=== PATIENT | male | born 1935 | race Caucasian/White ===

== ENCOUNTER → 2016-05-29 | Outpatient (CLI) | payer BC ==
[~2016-05-29] MED LIST: ACET-1256 PO; ASPCH81X PO; ATOR10TA88 PO; BACL10TA PO; CARV6.252 PO; CHOL100010 PO; CHOL100027 PO; CLR10 PO; COEN150C2 PO; COEN1CAP28 PO; COEN1CAP7 PO; CYCL0.052 OP; CZR25 PO; DIGO0.122 PO; FINA5TAB PO; FLNIN NAE; FLUT0.15 NAE; FURO20TA PO; GABA1CAP PO; GABA1CAP4 PO; GLUCTAB7 PO; ISOS120T5 PO; ISOS60TA25 PO; LNX125 PO; LOSA1TAB PO; LPT/40 PO; METH500T37 PO; MULT-190 PO; MULT-506 PO; NTRGSL/4 UT; PANT40TA PO; POLY3350 PO; POLY335040 PO; RSTOPS OPB; TEMA15CA4 PO; TEMA7.5C13 PO; TRAM-10 PO; WARF5TAB7 PO; WARF5TAB90 PO; [UNRECOGNIZED DRUG - OTHER] OPB
[2016-05-29 16:22] LABS: HEMATOCRIT 44.2 % (42-52); MEAN CELL VOLUME 93.6 fL (80-100); MEAN CORPUSCULAR HEMOGLOBIN 32.2 pg (25-34); MEAN CORPUSCULAR HGB CONC 34.4 g/dl (32-36); MEAN PLATELET VOLUME 10.2 fL (7.4-10.4); PLATELET COUNT 209 K/uL (130-400); RED BLOOD COUNT 4.72 M/uL (4.7-6.1); WHITE BLOOD COUNT 7.79 K/uL (4.8-10.8)
[2016-05-29 16:39] LABS: URINE APPEARANCE CLEAR (CLEAR); URINE BILIRUBIN NEG (NEG); URINE COLOR DK YELLOW; URINE EPITHELIAL CELL AUTO 0-5 /lpf (0-5); URINE NITRITE NEG (NEG); URINE SPECIFIC GRAVITY 1.022 (1.000-1.030); UROBILINOGEN POS (NEG)
[2016-05-29 16:44] LABS: MANUAL MICROSCOPIC REQUIRED? NO; REVIEW REQ? NO
[2016-05-29 16:54] LABS: BLOOD UREA NITROGEN 17 mg/dl (7-18); BUN/CREATININE RATIO 15.7 (10-20); CALCIUM 8.9 mg/dl (8.5-10.1); CARBON DIOXIDE 30 mmol/L (21-32); CHLORIDE 104 mmol/L (98-107); GLUCOSE 87 mg/dl (70-99); PHOSPHORUS 2.7 mg/dl (2.5-4.9); POTASSIUM 3.9 mmol/L (3.5-5.1); SODIUM 141 mmol/L (136-145)
[2016-05-29 16:59] LABS: URINE PROTIEN/CREAT RATIO 0.3 (0-0.2); URINE TOTAL PROTEIN 37.1 mg/dl (0-11.9)
== END | disposition home or self-care (01) ==
LOC: C.LAB 15:02
PROVIDERS: ATTEND Internal Medicine Nephrology
DX: I12.9 Hypertensive chronic kidney disease with stage 1 through stage 4 chronic kidney disease, or unspecified chronic kidney disease (principal); N25.81 Secondary hyperparathyroidism of renal origin; N18.2 Chronic kidney disease, stage 2 (mild); Z51.81 Encounter for therapeutic drug level monitoring; Z79.01 Long term (current) use of anticoagulants; I48.91 Unspecified atrial fibrillation

== ENCOUNTER → 2016-06-05 | Day surgery (SDC) | payer BC ==
[~2016-06-05] VITALS: Ht 170.2 cm; Wt 75.0 kg
[~2016-06-05] MED LIST changes: +BUPIVACAINE 0.25% 2.5MG/ML PF 10 ML VIAL INFIL ONE; +LIDOCAINE HCL 1% 20 ML VIAL ONE
[2016-06-05 13:15] VITALS: Ht 170.2 cm; Wt 75.0 kg
--- NOTE | 2016-06-05 13:45 | History & Physical Bridge - [place] ---
H&P Re-Evaluation Bridge Note: I have examined the patient, reviewed the History & Physical and in the interval since the performance of the History & Physical I have noted the following changes of clinical significance: No changes noted
[2016-06-05 14:30] VITALS: BP 145/87; PULSE 67; TEMP 36.6; O2SAT 98
--- NOTE | 2016-06-05 14:33 | Discharge Instructions ---
Discharge Instructions Visit Reason for Visit: Low Back Pain Discharge Discharge Diagnosis / Problem: low back pain Discharge Goals Goal(s): Decrease discomfort, Improve function Activity Recommendations Activity Limitations: resume your previous activity Anesthesia . Post Anesthesia Instructions: If you have had General Anesthesia or IV Sedation: * Do not drive today. * Resume driving when surgeon permits. * Do not make important decisions or sign legal documents today. * Call surgeon for: 1. Temperature elevations greater than 101 degrees F. 2. Uncontrollable pain. 3. Excessive bleeding. 4. Persistent nausea and vomiting. 5. Medication intolerance (nausea, vomiting or rash). * For nausea and vomiting use only clear liquids such as: tea, soda, bouillon until nausea subsides, then gradually increase diet as tolerated. * If you have any concerns or questions, call your surgeon's office. If physician is unavailable and it is an emergency, call 911 or go to the nearest emergency room. . Diet Recommendations Recommended Home Diet: resume previous diet Procedures Procedures Performed: LEFT L4-5RADIO FREQUENCY DENERVATION Pending Studies Studies pending at discharge: no Medical Emergencies . Who to Call and When: Medical Emergencies: If at any time you feel your situation is an emergency, please call 911 immediately. . Non-Emergent Contact Non-Emergency issues call your: Specialist . . "Provider Documentation" section prepared by Bruno Nunez.
--- NOTE | 2016-06-05 15:30 | OPERATIVE REPORT ---
DATE OF OPERATION: 06/05/2016 PREOPERATIVE DIAGNOSIS: Left L4-L5 facet arthropathy, chronic low back pain. POSTOPERATIVE DIAGNOSIS: Same. PROCEDURE: Left L4-5 facet radiofrequency denervation. SURGEON: Dr. Bruno Nunez. INDICATIONS: The patient is an 80-year-old white male who underwent a right L4-L5 radiofrequency denervation in the summer of 2015. He reports that he had done well up until a short time period ago when the pain started to return and become problematic to him. He presents today for a radiofrequency denervation procedure on the left L4-L5 areas which he had retained really good relief for about a year's time. PHYSICAL EXAMINATION: Pleasant male seated comfortably. He is point tender to palpation at the L4-L5 facet area. This is worse with extension, rotation, relieved with flexion. Normal motor and sensory examination of his lower extremities. Negative seated straight leg raises. CONSENT: Verbal and written consent was obtained from the patient. Risks and benefits were reviewed. Risks include but are not limited to epidural abscess, epidural hematoma, allergic reaction, dural puncture. The patient wishes to proceed. PROCEDURE: The patient was taken back in the special procedures room of the [facility] where he was maintained in a prone position. Backside was cleansed with Betadine x3 and a dry sterile dressing was applied. Fluoroscope was used to identify the L4 and L5 transverse process junctions on the left side. Overlying skin was anesthetized with 3 mL of lidocaine 1% with a 25 gauge 1.5-inch needle at each site. A 22 gauge 10 cm needle was then placed targeting the bony junctions. It was maneuvered and tested to evoke sensory stimulation of 0.2 volts at L4 and 0.4 volts at L5. Overlying nerve area was then anesthetized with an additional 1 mL of lidocaine 1%. Prior to this he had motor stimulation at both sites that provoked localized paraspinal spasms, but nothing down the leg. He then underwent denervation 80 degrees 100 seconds x2, first at the L4 site then at the L5 site. This was well tolerated. Following denervation he had bupivacaine 0.25% placed at each site 1 mL. DISPOSITION: 1. The patient is taken out into the discharge recovery area where he will be discharged home once discharge criteria have been met. 2. Follow up in the [facility] Sports Medicine office in 2-4 weeks. I attest to the content of the Intraoperative Record and any orders documented therein. Any exceptio ns are noted below.
== END | disposition home or self-care (01) ==
LOC: X.SURG 12:48
PROVIDERS: ATTEND Physical Medicine & Rehabilitation
DX: M47.816 Spondylosis without myelopathy or radiculopathy, lumbar region (principal); M54.5 Low back pain; Z79.01 Long term (current) use of anticoagulants

== ENCOUNTER 2016-09-03 15:48 | Observation (INO) | payer BC, OTHER ==
[~2016-09-03] VITALS: Ht 170.2 cm; Wt 76.8 kg
[~2016-09-03 15:48] MED LIST changes: +ATOR10TA82 PO; -ATOR10TA88 PO; -BACL10TA PO; -BUPIVACAINE 0.25% 2.5MG/ML PF 10 ML VIAL INFIL ONE; -CHOL100027 PO; -COEN150C2 PO; -COEN1CAP7 PO; -CYCL0.052 OP; -FLUT0.15 NAE; -GABA1CAP PO; -ISOS60TA25 PO; -LIDOCAINE HCL 1% 20 ML VIAL ONE; -LNX125 PO; -LOSA1TAB PO; -LPT/40 PO; -METH500T37 PO; -MULT-506 PO; -NTRGSL/4 UT; -POLY3350 PO; -TEMA7.5C13 PO; -WARF5TAB90 PO
[2016-09-03] MEDS ORDERED: ASPIRIN 81 MG CHEW PO STA (16:00)
[2016-09-03] MEDS ORDERED: NITROGLYCERIN 0.4 MG SL PER TAB CHARGE SL PRN ×2 (16:00→18:00)
[2016-09-03] MEDS ORDERED: METH500T37 PO (16:10)
--- NOTE | 2016-09-03 16:19 | EMERGENCY ROOM VISIT NOTE ---
History Report prepared by Dacia: Payton Dunlap Under the Supervision of: Dr. Curtis Waller D.O. First contact with patient: 15:54 Chief Complaint: CHEST PAIN Stated Complaint: CHEST DISCOMFORT/PAIN- CARDIAC HX History of Present Illness The patient is a 80 year old male who presents to the Emergency Room with complaints of intermittent chest pain starting couple days ago. He currently rates his discomfort as a 2/10 in severity. He describes the pain as a tightness which is present in the middle of his chest. He reports SOB, tingling in his left arm, nausea, and back pain. He denies any vomiting, abdominal pain, or swelling in his legs. He has aspirin and nitro at home which he has not taken. He has had a cardiac catheterization before. He has a pacemaker in place. 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 Source of History: patient Onset: couple days ago Position: chest (mid) Symptom Intensity: 2/10 Quality: other (tightness) Timing: intermittent Associated Symptoms: + SOB, + back pain, + nausea, No abdominal pain, No vomiting Note: Pt reports tingling in left arm. Pt denies swelling in his legs. Review of Systems See HPI for pertinent positives & negatives. A total of 10 systems reviewed and were otherwise negative. Past Medical & Surgical Medical Problems: (1) Abdominal pain (2) Benign hypertension (3) Chest pain (4) Colonoscopy (5) Coronary artery bypass grafts x 2 (6) Dyslipidemia (7) History of TIA (transient ischemic attack) (8) Hx of myocardial infarction (9) Hyperlipidemia (10) Hypertension (11) Pacemaker (12) Placement of stent Surgical Problems: (1) History of coronary artery bypass graft x 2 (2) Stented coronary artery Family History Heart disease Hypertension Social History Smoking Status: Former Smoker Alcohol Use: occasionally Drug Use: none Marital Status: Housing Status: lives with family Occupation Status: retired Current/Historical Medications Scheduled Aspirin (Aspirin Chewable), 162 MG PO QAM Atorvastatin (Lipitor), 10 MG PO QPM Carvedilol (Coreg), 6.25 MG PO BID Cholecalciferol (Vitamin D 1000 Unit), 1,000 INTER.UNIT PO DAILY Coenzyme Q10 (Ubidecarenone) (Coq10), 1-2 TAB PO DAILY Cyclosporine (Ophth) (Restasis), 1 DROP OP BID Digoxin (Digoxin), 0.125 MG PO DAILY Finasteride (Proscar), 5 MG PO DAILY Fluticasone Propionate (Nasal) (Flonase Allergy Relief), 2 SPRAYS ANA DAILY Furosemide (Lasix), 20 MG PO QAM Gabapentin (Gabapentin), 300 MG PO TID Gxhjvstcske-Otoab[place]hiuk-Xmg C- (Glucosamine Chondroitin), 1 TABLET PO BID Isosorbide Mononitrate Ext Rel (Imdur Ext Rel), 30 MG PO QAM Losartan Potassium (Cozaar), 1 TAB PO DAILY Nitroglycerin (Nitrostat), 0.4 MG UT PRN Ocuvite Preservision (Ocuvite Preservision), 1 TAB PO QAM Pantoprazole Sodium (Protonix), 40 MG PO QAM Polyethylene Glycol 3350 (Polyethylene Glycol 3350), 17 GM PO DAILY Temazepam (Temazepam), 7.5 MG PO HS Warfarin Sod (Jantoven), 5 MG PO 4XWK Warfarin Sodium (Coumadin), 2.5 MG PO -- Scheduled PRN Acetaminophen (Tylenol), 500 MG PO DAILY PRN for Pain Loratadine (Claritin), 10 MG PO QAM PRN for ALLERGIC REACTION Methocarbamol (Robaxin), 500 MG PO Q8 PRN for Muscle Spasms Tramadol (Ultram), 50 MG PO Q12 PRN for Pain Allergies Coded Allergies: Adhesives (Verified Allergy, Intermediate, 06/05/16) Niacin (Verified Adverse Reaction, Unknown, FLUSHING, 06/05/16) Oxycodone (Verified Adverse Reaction, Unknown, sick, GI, 06/05/16) Rosuvastatin (Verified Adverse Reaction, Unknown, CONSTIPATION, 06/05/16) Physical Exam Vital Signs Date Time Temp Pulse Resp B/P Pulse Ox O2 Delivery O2 Flow Rate FiO2 09/03/16 18:05 94 Room Air 09/03/16 17:34 70 16 133/74 94 Room Air 09/03/16 16:59 70 18 125/63 95 Room Air 09/03/16 16:20 71 20 102/60 93 Room Air 09/03/16 16:18 71 09/03/16 16:15 71 22 117/61 Room Air 09/03/16 16:05 93 Room Air 09/03/16 16:00 93 Room Air 09/03/16 15:51 36.3 74 20 131/70 88 Room Air Physical Exam GENERAL: Patient is awake, alert, and in no acute distress. Patient is resting comfortably and showing no signs of anxiety EYES: The conjunctivae are clear. The pupils are round and reactive. EARS, NOSE, MOUTH AND THROAT: The nose is without any evidence of any deformity. Mucous membranes are moist tongue is midline NECK: The neck is nontender and supple. RESPIRATORY: Lung sounds diminished throughout, rales at both bases. CARDIOVASCULAR: Regular rate and rhythm noted to auscultation. Systolic murmur noted to auscultation. GASTROINTESTINAL: The abdomen is soft. Bowel sounds are present in all quadrants. Abdomen is nontender MUSCULOSKELETAL/EXTREMITIES: There is no evidence of gross deformity full range of motion is noted in the hips and shoulders SKIN: Trace pedal edema bilaterally. NEUROLOGIC: Patient is awake alert and oriented x3. Medical Decision & Procedures ER Provider Diagnostic Interpretation: X-ray results as stated below per interpretation by me and the radiologist. SINGLE VIEW CHEST CLINICAL HISTORY: Atypical chest pain. FINDINGS: An AP, portable, upright chest radiograph is compared to study dated 09/01/2015. Correlation is made with chest CT dated 06/06/11. The examination is degraded by portable technique and patient rotation. A 3-lead cardiac pacemaker is unchanged in position and partially obscures the left mid chest. The heart is enlarged and there is atherosclerotic calcification of the thoracic aorta. Enlargement of the central pulmonary arteries suggests pulmonary artery hypertension. There is mild pulmonary vascular congestion. Emphysema and chronic interstitial thickening is similar to previous. There is chronic elevation of the right hemidiaphragm. No airspace consolidation is seen typical for pneumonia and there is no large pleural effusion. Apical scarring is observed. No pneumothorax is seen. The skeletal structures are osteopenic. The bony thorax is grossly intact. IMPRESSION: 1. Cardiomegaly and cardiac pacemaker. There is evidence of mild congestive failure. 2. No airspace consolidation or large pleural effusion is identified. Electronically signed by: Glen Noriega M.D. 09/03/2016 4:28 PM Dictated Date/Time: 09/03/2016 4:27 PM Laboratory Results 09/03/16 16:05 Red Blood Count 4.65, Mean Corpuscular Volume 95.3, Mean Corpuscular Hemoglobin 31.6, Mean Corpuscular Hemoglobin Concent 33.2, Mean Platelet Volume 10.2, Neutrophils (%) (Auto) 74.0, Lymphocytes (%) (Auto) 15.2, Monocytes (%) (Auto) 8.3, Eosinophils (%) (Auto) 2.0, Basophils (%) (Auto) 0.3, Neutrophils # (Auto) 6.39, Lymphocytes # (Auto) 1.31, Monocytes # (Auto) 0.72, Eosinophils # (Auto) 0.17, Basophils # (Auto) 0.03 09/03/16 16:05 Test 09/03/16 16:05 White Blood Count 8.64 K/uL (4.8-10.8) Red Blood Count 4.65 M/uL (4.7-6.1) Hemoglobin 14.7 g/dL (14.0-18.0) Hematocrit 44.3 % (42-52) Mean Corpuscular Volume 95.3 fL (80-100) Mean Corpuscular Hemoglobin 31.6 pg (25-34) Mean Corpuscular Hemoglobin Concent 33.2 g/dl (32-36) Platelet Count 190 K/uL (130-400) Mean Platelet Volume 10.2 fL (7.4-10.4) Neutrophils (%) (Auto) 74.0 % Lymphocytes (%) (Auto) 15.2 % Monocytes (%) (Auto) 8.3 % Eosinophils (%) (Auto) 2.0 % Basophils (%) (Auto) 0.3 % Neutrophils # (Auto) 6.39 K/uL (1.4-6.5) Lymphocytes # (Auto) 1.31 K/uL (1.2-3.4) Monocytes # (Auto) 0.72 K/uL (0.11-0.59) Eosinophils # (Auto) 0.17 K/uL (0-0.5) Basophils # (Auto) 0.03 K/uL (0-0.2) RDW Standard Deviation 52.5 fL (36.4-46.3) RDW Coefficient of Variation 15.2 % (11.5-14.5) Immature Granulocyte % (Auto) 0.2 % Immature Granulocyte # (Auto) 0.02 K/uL (0.00-0.02) Prothrombin Time 29.8 SECONDS (9.0-12.0) Prothromb Time International Ratio 2.7 (0.9-1.1) Activated Partial Thromboplast Time 32.7 SECONDS (21.0-31.0) Partial Thromboplastin Ratio 1.3 Anion Gap 10.0 mmol/L (3-11) Estimated GFR () 59.7 Estimated GFR (Non- 51.5 BUN/Creatinine Ratio 22.5 (10-20) Calcium Level 8.5 mg/dl (8.5-10.1) Total Bilirubin 1.0 mg/dl (0.2-1) Direct Bilirubin 0.3 mg/dl (0-0.2) Aspartate Amino Transf (AST/SGOT) 37 U/L (15-37) Alanine Aminotransferase (ALT/SGPT) 33 U/L (12-78) Alkaline Phosphatase 63 U/L (45-117) Total Creatine Kinase 116 U/L (39-308) Creatine Kinase MB 2.4 ng/ml (0.5-3.6) Creatine Kinase MB Ratio 2.1 (0-3.0) Troponin I 0.090 ng/ml (0-0.045) Pro-B-Type Natriuretic Peptide 1731 pg/ml (0-1800) Total Protein 7.8 gm/dl (6.4-8.2) Albumin 3.7 gm/dl (3.4-5.0) Lipase 145 U/L (73-393) Laboratory results per my review. Medications Administered Medications (Trade) Dose Ordered Sig/Merlyn Route Start Time Stop Time Status Last Admin Dose Admin Aspirin (Aspirin Chew) 324 mg NOW STAT PO 09/03/16 16:00 09/03/16 16:02 DC 09/03/16 16:14 324 MG Nitroglycerin (Nitrostat Tab) 0.4 mg Q5M PRN SL 09/03/16 16:00 09/03/16 20:05 DC 09/03/16 16:15 0.4 MG ECG Indication: chest pain Rate (beats per minute): 75 Rhythm: other (ventricular paced) Findings: other (no PVC, ventricular paced) Comparison ECG Date: 02-Sep-2015 Change: no significant change ED Course 1556: The patient was evaluated in room C9. A complete history and physical examination were performed. 1600: Nitroglycerin 0.4 mg SL, Aspirin 324 mg PO. 1720: Upon reevaluation, the patient is resting comfortably. I discussed results and treatment plan with him. He verbalizes agreement and understanding. The patient will be evaluated for further management and care. 1726: I discussed the patient's case with KEARA Liang - hospitallizet. The patient will be evaluated for further management. Medical Decision Prior records/ancillary studies reviewed. Triage Nursing notes reviewed. The patient's history was concerning for chest pain. Differential diagnosis: Etiologies such as cardiac ischemia, aortic dissection, pulmonary embolism, pneumonia, pneumothorax, musculoskeletal, infections, pericarditis, myocarditis , esophageal rupture, gastrointestinal, as well as others were entertained. The patient is a 80-year-old male who presented to the emergency department for an evaluation of shortness of breath and chest discomfort. He states that this started when he was doing yardwork. The patient was treated with aspirin and nitroglycerin in the emergency department. Symptoms significantly improved. He was also found have mild hypoxia and was treated with supple and oxygen. Symptoms improved with some nausea. I discussed the patient's laboratory and radiographic studies with him. He was found have a mildly elevated troponin. I discussed his case with the on-call [facility] hospitalist group. They've agreed to evaluate the patient in the emergency department for further management and disposition. Consults Time Called: [phone] Consulting Physician: KEARA Liang - hospitallizet Returned Call: [phone] I discussed the patient's case with him. The patient will be evaluated for further management. Impression Primary Impression: Chest pain Additional Impressions: Pulmonary edema Elevated troponin Hypoxia Scribe Attestation The scribe's documentation has been prepared under my direction and personally reviewed by me in its entirety. I confirm that the note above accurately reflects all work, treatment, procedures, and medical decision making performed by me. Departure Information Dispostion Being Evaluated By Hospitalist Referrals Raghu Murphy M.D. (PCP) Patient Instructions My [facility] Problem Qualifiers Primary Impression: Chest pain Chest pain type: unspecified Qualified Codes: R07.9 - Chest pain, unspecified Additional Impressions: Pulmonary edema Chronicity: acute Qualified Codes: J81.0 - Acute pulmonary edema
[2016-09-03] MEDS ORDERED: FLUT0.15 NAE (16:22)
[2016-09-03] MEDS ORDERED: CHOL100027 PO (16:22)
[2016-09-03] MEDS ORDERED: LOSA1TAB PO (16:22)
[2016-09-03] MEDS ORDERED: CYCL0.052 OP (16:22)
[2016-09-03] MEDS ORDERED: POLY3350 PO (16:23)
[2016-09-03] MEDS ORDERED: COEN150C2 PO (16:23)
[2016-09-03] MEDS ORDERED: LNX125 PO (16:23)
[2016-09-03] MEDS ORDERED: TEMA7.5C13 PO (16:23)
--- NOTE | 2016-09-03 16:29 | DIAGNOSTIC IMAGING REPORT ---
SINGLE VIEW CHEST CLINICAL HISTORY: Atypical chest pain. FINDINGS: An AP, portable, upright chest radiograph is compared to study dated 09/01/2015. Correlation is made with chest CT dated 06/06/11. The examination is degraded by portable technique and patient rotation. A 3-lead cardiac pacemaker is unchanged in position and partially obscures the left mid chest. The heart is enlarged and there is atherosclerotic calcification of the thoracic aorta. Enlargement of the central pulmonary arteries suggests pulmonary artery hypertension. There is mild pulmonary vascular congestion. Emphysema and chronic interstitial thickening is similar to previous. There is chronic elevation of the right hemidiaphragm. No airspace consolidation is seen typical for pneumonia and there is no large pleural effusion. Apical scarring is observed. No pneumothorax is seen. The skeletal structures are osteopenic. The bony thorax is grossly intact. IMPRESSION: 1. Cardiomegaly and cardiac pacemaker. There is evidence of mild congestive failure. 2. No airspace consolidation or large pleural effusion is identified. Electronically signed by: Glen Noriega M.D. 09/03/2016 4:28 PM Dictated Date/Time: 09/03/2016 4:27 PM
[2016-09-03 16:35] LABS: BASO % 0.3 %; BASO ABS # 0.03 K/uL (0-0.2); COMPLETE YES; HEMATOCRIT 44.3 % (42-52); IG% 0.2 %; LYMPH % 15.2 %; LYMPH ABS # 1.31 K/uL (1.2-3.4); MEAN CELL VOLUME 95.3 fL (80-100); MEAN CORPUSCULAR HEMOGLOBIN 31.6 pg (25-34); MEAN CORPUSCULAR HGB CONC 33.2 g/dl (32-36); MEAN PLATELET VOLUME 10.2 fL (7.4-10.4); MONO % 8.3 %; PLATELET COUNT 190 K/uL (130-400); RED BLOOD COUNT 4.65 M/uL (4.7-6.1); WHITE BLOOD COUNT 8.64 K/uL (4.8-10.8)
[2016-09-03] MEDS ORDERED: COEN1CAP7 PO (16:40)
[2016-09-03] MEDS ORDERED: WARF5TAB90 PO (16:40)
[2016-09-03 16:51] LABS: INR 2.7 (0.9-1.1); PARTIAL THROMBOPLASTIN RATIO 1.3; PROTHROMBIN TIME (PATIENT) 29.8 SECONDS (9.0-12.0)
[2016-09-03 16:57] LABS: ALT/SGPT 33 U/L (12-78); AST/SGOT 37 U/L (15-37); BLOOD UREA NITROGEN 29 mg/dl (7-18); BUN/CREATININE RATIO 22.5 (10-20); CALCIUM 8.5 mg/dl (8.5-10.1); CARBON DIOXIDE 24 mmol/L (21-32); CHLORIDE 108 mmol/L (98-107); GLUCOSE 104 mg/dl (70-99); POTASSIUM 4.2 mmol/L (3.5-5.1); SODIUM 142 mmol/L (136-145)
[2016-09-03 17:11] LABS: ALKALINE PHOSPHATASE 63 U/L (45-117); CKMB/CK RATIO 2.1 (0-3.0)
[2016-09-03] MEDS ORDERED: POLYETHYLENE (MIRALAX) 17 GM PACK PO PRN (18:00)
[2016-09-03] MEDS ORDERED: ONDANSETRON INJ 2 MG/ML 2 ML VIAL IV PRN (18:00)
[2016-09-03] MEDS ORDERED: MAGNESIUM HYDROXIDE SUSP 30 ML UDC PO PRN (18:00)
[2016-09-03] MEDS ORDERED: ACETAMINOPHEN 325 MG TAB PO PRN (18:00)
[2016-09-03] MEDS ORDERED: ALUMINUM/MAGNESIUM/SIMETH (MAALOX MAX) 30 ML UDC PO PRN (18:00)
[2016-09-03 18:05] VITALS: O2SAT 94; Ht 170.2 cm; Wt 76.8 kg
[2016-09-03] MEDS ORDERED: IV FLUIDS COMPLETED PRN (18:15)
[2016-09-03] MEDS ORDERED: NITROGLYCERIN 0.4 MG SL PER TAB CHARGE UT SCH (18:45)
[2016-09-03] MEDS ORDERED: ACETAMINOPHEN 500 MG TAB PO PRN (18:45)
[2016-09-03] MEDS ORDERED: TRAMADOL HCL 50 MG TAB PO PRN (18:45)
[2016-09-03] MEDS ORDERED: METHOCARBAMOL 500 MG TAB PO PRN (18:45)
[2016-09-03] MEDS ORDERED: LORATADINE 10 MG TAB PO PRN (18:45)
[2016-09-03] MEDS ORDERED: ATORVASTATIN 10 MG TAB PO SCH (21:00)
[2016-09-03] MEDS ORDERED: TEMAZEPAM 7.5 MG CAP PO SCH (21:00)
[2016-09-03] MEDS ORDERED: WARFARIN SOD 5 MG TAB PO SCH (21:00)
[2016-09-03] MEDS: GABAPENTIN 300 MG CAP PO SCH (21:04)
[2016-09-03] MEDS: CARVEDILOL 6.25 MG TAB PO SCH (21:05)
[2016-09-03] MEDS: DICLOFENAC SOD 1% GEL 100 GM TUBE EXT SCH (21:07)
[2016-09-03 21:08] VITALS: BP 158/84; PULSE 66
--- NOTE | 2016-09-03 21:14 | History and Physical ---
History & Physical Date & Time of Service: September 03, 2016 at 21:09 Chief Complaint: Chest Pain Primary Care Physician: Raghu Murphy M.D. Past Medical/Surgical History Medical Problems: (1) Abdominal pain Status: Chronic (2) Benign hypertension Status: Chronic (3) Colonoscopy Status: Resolved (4) Coronary artery bypass grafts x 2 Status: Resolved (5) Dyslipidemia Status: Chronic (6) History of TIA (transient ischemic attack) Status: Chronic (7) Hx of myocardial infarction Status: Chronic (8) Hyperlipidemia Status: Chronic (9) Hypertension Status: Chronic (10) Pacemaker Status: Chronic (11) Placement of stent Status: Resolved Surgical Problems: (1) History of coronary artery bypass graft x 2 Status: Chronic (2) Stented coronary artery Status: Chronic Family History Heart disease Hypertension Social History Smoking Status: Never Smoker Drug Use: none Marital Status: Housing status: lives with family Occupational Status: retired Immunizations History of Influenza Vaccine: Yes Influenza Vaccine Date: Feb 25, 2012 History of Tetanus Vaccine?: Yes Tetanus Immunization Date: Aug 25, 2010 History of Pneumococcal: Yes Pneumococcal Date: Aug 26, 2011 History of Hepatitis B Vaccine: No Multi-Drug Resistant Organisms History of MDRO: Yes Allergies Coded Allergies: Adhesives (Verified Allergy, Intermediate, 06/05/16) Niacin (Verified Adverse Reaction, Unknown, FLUSHING, 06/05/16) Oxycodone (Verified Adverse Reaction, Unknown, sick, GI, 06/05/16) Rosuvastatin (Verified Adverse Reaction, Unknown, CONSTIPATION, 06/05/16) Home Medications Scheduled Aspirin (Aspirin Chewable), 162 MG PO QAM Atorvastatin (Lipitor), 10 MG PO QPM Carvedilol (Coreg), 6.25 MG PO BID Cholecalciferol (Vitamin D 1000 Unit), 1,000 INTER.UNIT PO DAILY Coenzyme Q10 (Ubidecarenone) (Coq10), 1-2 TAB PO DAILY Cyclosporine (Ophth) (Restasis), 1 DROP OP BID Digoxin (Digoxin), 0.125 MG PO DAILY Finasteride (Proscar), 5 MG PO DAILY Fluticasone Propionate (Nasal) (Flonase Allergy Relief), 2 SPRAYS ANA DAILY Furosemide (Lasix), 20 MG PO QAM Gabapentin (Gabapentin), 300 MG PO TID Wnoioaxuous-Beugncpnrvt-Euw C- (Glucosamine Chondroitin), 1 TABLET PO BID Isosorbide Mononitrate Ext Rel (Imdur Ext Rel), 30 MG PO QAM Losartan Potassium (Cozaar), 1 TAB PO DAILY Nitroglycerin (Nitrostat), 0.4 MG UT PRN Ocuvite Preservision (Ocuvite Preservision), 1 TAB PO QAM Pantoprazole Sodium (Protonix), 40 MG PO QAM Polyethylene Glycol 3350 (Polyethylene Glycol 3350), 17 GM PO DAILY Temazepam (Temazepam), 7.5 MG PO HS Warfarin Sod (Jantoven), 5 MG PO 4XWK Warfarin Sodium (Coumadin), 2.5 MG PO -- Scheduled PRN Acetaminophen (Tylenol), 500 MG PO DAILY PRN for Pain Loratadine (Claritin), 10 MG PO QAM PRN for ALLERGIC REACTION Methocarbamol (Robaxin), 500 MG PO Q8 PRN for Muscle Spasms Tramadol (Ultram), 50 MG PO Q12 PRN for Pain Physical Exam Vital Signs Date Time Temp Pulse Resp B/P Pulse Ox O2 Delivery O2 Flow Rate FiO2 09/03/16 18:05 94 Room Air 09/03/16 17:34 70 16 133/74 94 Room Air 09/03/16 16:59 70 18 125/63 95 Room Air 09/03/16 16:20 71 20 102/60 93 Room Air 09/03/16 16:18 71 09/03/16 16:15 71 22 117/61 Room Air 09/03/16 16:05 93 Room Air 09/03/16 16:00 93 Room Air 09/03/16 15:51 36.3 74 20 131/70 88 Room Air Diagnostics Laboratory Results Results Past 24 Hours Test 09/03/16 16:05 Range/Units White Blood Count 8.64 4.8-10.8 K/uL Red Blood Count 4.65 4.7-6.1 M/uL Hemoglobin 14.7 14.0-18.0 g/dL Hematocrit 44.3 42-52 % Mean Corpuscular Volume 95.3 80-100 fL Mean Corpuscular Hemoglobin 31.6 25-34 pg Mean Corpuscular Hemoglobin Concent 33.2 32-36 g/dl Platelet Count 190 130-400 K/uL Mean Platelet Volume 10.2 7.4-10.4 fL Neutrophils (%) (Auto) 74.0 % Lymphocytes (%) (Auto) 15.2 % Monocytes (%) (Auto) 8.3 % Eosinophils (%) (Auto) 2.0 % Basophils (%) (Auto) 0.3 % Neutrophils # (Auto) 6.39 1.4-6.5 K/uL Lymphocytes # (Auto) 1.31 1.2-3.4 K/uL Monocytes # (Auto) 0.72 0.11-0.59 K/uL Eosinophils # (Auto) 0.17 0-0.5 K/uL Basophils # (Auto) 0.03 0-0.2 K/uL RDW Standard Deviation 52.5 36.4-46.3 fL RDW Coefficient of Variation 15.2 11.5-14.5 % Immature Granulocyte % (Auto) 0.2 % Immature Granulocyte # (Auto) 0.02 0.00-0.02 K/uL Prothrombin Time 29.8 9.0-12.0 SECONDS Prothromb Time International Ratio 2.7 0.9-1.1 Activated Partial Thromboplast Time 32.7 21.0-31.0 SECONDS Partial Thromboplastin Ratio 1.3 Sodium Level 142 136-145 mmol/L Potassium Level 4.2 3.5-5.1 mmol/L Chloride Level 108 98-107 mmol/L Carbon Dioxide Level 24 21-32 mmol/L Anion Gap 10.0 3-11 mmol/L Blood Urea Nitrogen 29 7-18 mg/dl Creatinine 1.30 0.60-1.40 mg/dl Estimated GFR () 59.7 Estimated GFR (Non- 51.5 BUN/Creatinine Ratio 22.5 10-20 Random Glucose 104 70-99 mg/dl Calcium Level 8.5 8.5-10.1 mg/dl Total Bilirubin 1.0 0.2-1 mg/dl Direct Bilirubin 0.3 0-0.2 mg/dl Aspartate Amino Transf (AST/SGOT) 37 15-37 U/L Alanine Aminotransferase (ALT/SGPT) 33 12-78 U/L Alkaline Phosphatase 63 45-117 U/L Total Creatine Kinase 116 39-308 U/L Creatine Kinase MB 2.4 0.5-3.6 ng/ml Creatine Kinase MB Ratio 2.1 0-3.0 Troponin I 0.090 0-0.045 ng/ml Pro-B-Type Natriuretic Peptide 1731 0-1800 pg/ml Total Protein 7.8 6.4-8.2 gm/dl Albumin 3.7 3.4-5.0 gm/dl Lipase 145 73-393 U/L Impression Assessment and Plan obs #[id number] Advanced Directives Existing Living Will: Yes Existing Power of Motor Vehicle Examiner: Yes VTE Prophylaxis VTE Risk Assessment Done? Y/N: Yes Risk Level: Moderate Given or contraindicated: Warfarin (Coumadin)
[2016-09-03] MEDS ORDERED: NTRGSL/4 UT (22:26)
--- NOTE | 2016-09-03 22:27 | HISTORY & PHYSICAL EXAMINATION ---
DATE OF ADMISSION: 09/03/2016 CHIEF COMPLAINT: Chest pain. HISTORY OF PRESENT ILLNESS: The patient is a very pleasant 80-year-old male, who notes that he was cutting the grass and whenever he had a degree of chest heaviness he thought maybe it relates to his pacemaker, but then on directed questioning, he notes that is not there all the time. He then also noted that he felt fairly short of breath, although he related that more to cutting the grass, but what really got his attention was radiation of pain and tingling in his left arm and fingers. He notes that it lasted about 10 minutes, went away with rest and has not come back since, but it got his attention and certainly brought him to the ER for further evaluation. As a secondary complaint, he notes that he has got low back pain that has been gradually getting worse, especially over the last month or so. He follows with physiatry, who has done multiple injections. He tried PT a while ago; things were not really improving. He wears a brace; things are worsening. The pain is mostly in his low back and is starting to interfere with his daily life. He was just recently started on gabapentin for this as well. REVIEW OF SYSTEMS: Otherwise negative, except for as above. PAST MEDICAL HISTORY: Includes; chronic back pain, aortic valve disorder, A-Fib, cardiac conduction disease status post pacemaker, BPH with obstruction, chronic kidney disease approximately stage 2, hypertension, hyperlipidemia, impaired fasting glucose, non-alcoholic fatty liver disease, osteopenia, coronary artery disease status post CABG, prior TIA and prior MT. FAMILY HISTORY: Includes heart disease and hypertension. SOCIAL HISTORY: He is a former smoker, and lives with his , supportive family. ALLERGIES: INCLUDE; ADHESIVES, NIACIN, OXYCODONE AND ROSUVASTATIN. HOME MEDICATIONS: Tylenol 500 mg daily p.r.n. pain, aspirin 162 mg daily, Lipitor 10 mg at bedtime, Coreg 6.25 b.i.d., vitamin D 1000 IU daily, CoQ10 daily, Restasis eyedrops b.i.d., digoxin 0.125 daily, Proscar 5 mg daily, Flonase 2 sprays nasally daily, Lasix 20 mg daily, gabapentin 300 mg t.i.d. recently increased only started about 2 weeks ago altogether, glucosamine chondroitin 1 tab b.i.d., Imdur 30 mg daily, loratadine 10 mg daily, losartan daily, Robaxin 500 mg q. 8 hours p.r.n. spasms, nitroglycerin 0.4 under the tongue p.r.n. chest pain, Ocuvite vitamin daily, Protonix 40 mg daily, MiraLax 17 grams daily, Temazepam 7.5 mg at bedtime, Ultram 50 mg q. 12 hours p.r.n. pain, warfarin 5 mg four times a week and 2.5 mg on the remaining days. PHYSICAL EXAMINATION: VITAL SIGNS: Temp 36.3, pulse 74, respiratory rate 20, blood pressure 131/70, initially listed as 88% on room air, but by the time I see him, he is 93-95 on room air, stable and was only given aspirin and nitro in the ER. GENERAL: Awake, alert, oriented x3, pleasant, in no acute distress. HEENT: Normocephalic and atraumatic. Mucous membranes are moist. CARDIOVASCULAR: Regular. He does have a left lower sternal border systolic murmur. No rubs or gallops. LUNGS: Clear to auscultation bilaterally. No rales, rhonchi or wheezes, with good effort. ABDOMEN: Soft, nondistended and nontender. No masses or organomegaly. EXTREMITIES: Without cyanosis, clubbing or edema. No calf tenderness. SKIN: Shows no rashes, no pallor or icterus. NEUROLOGIC: Shows cranial nerves II-XII to be grossly intact. Gross motor and sensory are intact. MUSCULOSKELETAL: Shows bilateral low lumbar paraspinals, extremely high tone, tender and decreased range of motion. He used to get little bit of a left on left sacral torsion and a tight right piriformis muscle that is high tone, tender and decreased range of motion which was treated with ligamentous articular strain and showed improvement in the soft tissue texture. The patient tolerated the treatment well. MENTAL STATE: Shows good recent and remote recall. Normal mood and affect. Good judgment and insight. LABORATORIES AND DIAGNOSTICS: Chest x-ray; showed cardiomegaly and maybe mild CHF. No consolidation or effusion. He did have a pacemaker as well. His EKG was paced. CBC shows a white count of 8.65, hemoglobin 14.7, platelets 190. Complete metabolic panel with sodium 142, potassium 4.2, chloride 108, CO2 24, BUN 29, creatinine 1.3, calcium 8.5, glucose 104, total bilirubin 1 with a direct of 0.3, AST 37, ALT 33, alkaline phosphatase 63. CK total of 116 with an MB of 2.4. Troponin of 0.09. BNP of 17 31, total protein 7.8, albumin 3.7, lipase 145. PT of 29.8 and INR of 2.7. ASSESSMENT AND PLAN: 1. Chest pain; given this, his coronary disease and his mild elevation of troponin, especially with him noting this felt very anginal to him. I suspect that it was probably a very small bout of unstable angina; certainly more likely than a true non-Q myocardial infarction. We will put him on telemetry, check an echocardiogram and ask cardiology to see him in regards to likely altering medication management versus less likely if he needed anything more invasive done. He appears stable at this point and is pain free. We will trend his enzymes and continue his current medications otherwise. 2. Acute on chronic low back pain. Certainly, it examines in the very classic scenario of bone and disc disease, creating more of a muscular ligamentous "fallout" as well as likely facilitated peripheral and central nervous system perpetuating pain. I had an extensive discussion with the patient and his in terms of the management of this and asked him to give strong consideration to soft tissue focused manipulative medicine for the lumbar paraspinals and the kind of buttock pelvic muscles as well as encouraged him to continue with the gabapentin for peripheral nervous system facilitation and I would defer to his PCP or sheet pile hammer operator as far as possible utility of an serotonin-norepinephrine reuptake inhibitor for central nervous system facilitation. I answered all questions to the best of my ability, he and his expressed understanding of this. 3. Somatic dysfunction sacrum. Osteopathic manipulative medicine was performed as above. The patient tolerated it well. 4. Atrial fibrillation. His rate is controlled. He is anticoagulated on Coumadin. Continue his Coumadin. 5. Hypertension. Continue his Lasix, Imdur, losartan and Coreg. 6. Deep venous thrombosis prophylaxis. He is anticoagulated. 7. Benign prostatic hypertrophy. Continue his finasteride.
[2016-09-03 23:18] VITALS: BP 138/63; PULSE 71; TEMP 36.4; O2SAT 94
[2016-09-04] MEDS ORDERED: RESTASIS: ORDER AWAITING ACTION SCH
[2016-09-04 00:26] LABS: CKMB/CK RATIO 2.5 (0-3.0)
[2016-09-04 03:44] VITALS: BP 148/78; PULSE 71; TEMP 36.8; O2SAT 93
[2016-09-04 07:41] VITALS: BP 166/81; PULSE 74; TEMP 36.5; O2SAT 91
[2016-09-04] MEDS ORDERED: FINASTERIDE 5 MG TAB PO SCH (09:00)
[2016-09-04] MEDS ORDERED: ASPIRIN 81 MG ECTAB PO SCH (09:00)
[2016-09-04] MEDS ORDERED: LOSARTAN POTASSIUM 25 MG TAB PO SCH (09:00)
[2016-09-04] MEDS ORDERED: FUROSEMIDE 20 MG TAB PO SCH (09:00)
[2016-09-04] MEDS ORDERED: CEROVITE ADV FORMULA TAB PO SCH (09:00)
[2016-09-04] MEDS ORDERED: POLYETHYLENE (MIRALAX) 17 GM PACK PO SCH (09:00)
[2016-09-04] MEDS ORDERED: CHOLECALCIFEROL 1000 INTER.UNIT TAB PO SCH (09:00)
[2016-09-04] MEDS ORDERED: ISOSORBIDE MONONITRATE 30 MG TABCR PO SCH (09:00)
[2016-09-04] MEDS ORDERED: PANTOprazole SOD 40 MG TAB PO SCH (09:00)
[2016-09-04] MEDS ORDERED: FLUTICASONE PROPIONATE NA SPR 16 GM BTL NAE SCH (09:00)
[2016-09-04] MEDS: GABAPENTIN 300 MG CAP PO SCH ×2 (09:01→14:34)
[2016-09-04] MEDS: CARVEDILOL 6.25 MG TAB PO SCH (09:02)
[2016-09-04] MEDS: DICLOFENAC SOD 1% GEL 100 GM TUBE EXT SCH ×3 (09:02→17:19)
[2016-09-04 09:36] LABS: CKMB/CK RATIO 2.4 (0-3.0)
--- NOTE | 2016-09-04 09:50 | ECHOCARDIOGRAM REPORT ---
*NOTICE TO RECEIVING CONSTITUTION PARTY AGENCY This information is strictly Confidential and protected under [place] law. [place] law prohibits you from making any further disclosure of this information unless further disclosure is expressly permitted by the written consent of the person to whom it pertains or is authorized by law. A general authorization for the release of medical or other information is not sufficient for this purpose. Hospital accepts no responsibility if the information is made available to any other person, INCLUDING THE PATIENT. Interpretation Summary * Name: HORTENSIA HOLDER Study Date: 09/04/2016 07:03 AM BP: 148/78 mmHg * Patient Location: C.2E\[id number]\E202\S\1 HR: 71 * : 1935 (M/d/yyyy) Gender: Male Height: 68 in * Age: 80 yrs Ethnicity: [place] Weight: 176 lb * Ordering Physician: Sajan Sargent * Referring Physician: Self, Referred * Performed By: Maricruz Rutherford RDCS * * Reason For Study: CHF * BSA: 1.9 m2 * The study was technically adequate. * -- Conclusions -- * There is a moderate sized inferior and inferolateral wall motion abnormality with hypokinesis to akinesis of the segments. * Moderate concentric left ventricular hypertrophy is present in the wall with normal wall motion. * Left ventricular systolic function is mildly reduced. * The qualitative left ventricular ejection fraction=45% * The right ventricle is normal size. * The right ventricular systolic function is reduced as assessed by tricuspid annular plane systolic excursion (TAPSE) (TAPSE <1.6 cm). * The left atrium is severely dilated. * The right atrium is moderately dilated. * The aortic valve is mildl calcified. * Mild aortic regurgitation. * Mild valvular aortic stenosis. * There is moderate to severe mitral regurgitation. * The mitral regurgitant jet is eccentrically directed. * The posterior mitral valve leafltet is restricted due to the inferiorlateral hypokinesis. The mitral regurgitation jet hugs the posterior wall of the left atrium. * There is mild tricuspid regurgitation. * Mild pulmonary hypertension is present. The pulmonary artery systolic pressure is calculated to be 45 mm Hg, assuming a right atrial pressure of 3 mm Hg. Procedure Details * A complete two-dimensional transthoracic echocardiogram was performed (2D, M-mode, Doppler and color flow Doppler). Left Ventricle * The left ventricle is normal in size. * Moderate concentric left ventricular hypertrophy is present in the wall with normal wall motion. * Left ventricular systolic function is mildly reduced. * The qualitative left ventricular ejection fraction=45% * There is a moderate sized inferior and inferolateral wall motion abnormality with hypokinesis to akinesis of the segments. Right Ventricle * The right ventricle is normal size. * The right ventricular systolic function is reduced as assessed by tricuspid annular plane systolic excursion (TAPSE) (TAPSE <1.6 cm). Atria * The left atrium is severely dilated. * The right atrium is moderately dilated. * A pacemaker lead is noted in the right atrium. * There is no evidence of atrial septal defect, but resolution does not allow assessment for a patent foramen ovale. Mitral Valve * There is no mitral valve stenosis. * There is moderate to severe mitral regurgitation. * The mitral regurgitant jet is eccentrically directed. * The posterior mitral valve leafltet is restricted due to the inferiorlateral hypokinesis. The mitral regurgitation jet hugs the posterior wall of the left atrium. Tricuspid Valve * The tricuspid valve is normal. * There is no tricuspid stenosis. * There is mild tricuspid regurgitation. * Mild pulmonary hypertension is present. The pulmonary artery systolic pressure is calculated to be 45 mm Hg, assuming a right atrial pressure of 3 mm Hg. Aortic Valve * The aortic valve is trileaflet. * The aortic valve is mildl calcified. * Mild valvular aortic stenosis. * Mild aortic regurgitation. Pulmonic Valve * The pulmonary valve is not well seen, but the Doppler examination is normal without significant regurgitation or stenosis. Great Vessels * The aortic root and proximal ascending aorta are normal sized. Pericardium/Pleural * There is no pericardial effusion. Right Ventricle * A pacemaker lead is noted in the right ventricle. Great Vessels * Normal inferior vena cava size and collapsability with sniff indicates a normal right atrial pressure of 3 mmHg Left Ventricular Diastolic Function * The left ventricular diastolic function is abnormal based on the presence of left atrial enlargement, but is not graded due to the prescence of underlying atrial fibrillation. MMode 2D Measurements and Calculations IVSd 1.1 cm LVIDd 4.5 cm LVIDs 3.5 cm LVPWd 2.3 cm IVS/LVPW 0.49 FS 23.2 % EDV(Teich) 94.0 ml ESV(Teich) 50.2 ml EF(Teich) 46.6 % EDV(cubed) 93.1 ml ESV(cubed) 42.2 ml EF(cubed) 54.7 % LV mass(C)d 338.9 grams LV mass(C)dI 175.1 grams/m\S\2 SV(Teich) 43.8 ml SI(Teich) 22.6 ml/m\S\2 SV(cubed) 50.9 ml SI(cubed) 26.3 ml/m\S\2 Ao root diam 3.4 cm Ao root area 9.0 cm\S\2 ACS 0.81 cm LA dimension 4.5 cm asc Aorta Diam 2.9 cm LA/Ao 1.3 LVOT diam 1.8 cm LVOT area 2.6 cm\S\2 LVAd ap4 20.4 cm\S\2 LVLd ap4 6.1 cm EDV(MOD-sp4) 55.2 ml EDV(sp4-el) 57.9 ml LVAs ap4 13.4 cm\S\2 LVLs ap4 5.7 cm ESV(MOD-sp4) 26.7 ml ESV(sp4-el) 26.7 ml EF(MOD-sp4) 51.7 % EF(sp4-el) 53.8 % LVAd ap2 29.9 cm\S\2 LVLd ap2 7.0 cm EDV(MOD-sp2) 107.2 ml EDV(sp2-el) 108.2 ml LVAs ap2 18.9 cm\S\2 LVLs ap2 5.9 cm ESV(MOD-sp2) 50.8 ml ESV(sp2-el) 52.0 ml EF(MOD-sp2) 52.6 % EF(sp2-el) 51.9 % LVLd %diff 13.4 % EDV(MOD-bp) 82.8 ml LVLs %diff 2.4 % ESV(MOD-bp) 37.1 ml EF(MOD-bp) 55.2 % SV(MOD-sp4) 28.5 ml SI(MOD-sp4) 14.7 ml/m\S\2 SV(MOD-sp2) 56.3 ml SI(MOD-sp2) 29.1 ml/m\S\2 SV(MOD-bp) 45.7 ml SI(MOD-bp) 23.6 ml/m\S\2 SV(sp4-el) 31.2 ml SI(sp4-el) 16.1 ml/m\S\2 SV(sp2-el) 56.2 ml SI(sp2-el) 29.0 ml/m\S\2 Doppler Measurements and Calculations MV E max christy 135.3 cm/sec MV dec time 0.13 sec Ao V2 max 209.1 cm/sec Ao max PG 17.6 mmHg Ao max PG (full) 16.5 mmHg Ao V2 mean 145.9 cm/sec Ao mean PG 9.9 mmHg Ao V2 VTI 43.2 cm PETERSON(V,A) 0.63 cm\S\2 PETERSON(V,D) 0.63 cm\S\2 LV V1 max PG 1.0 mmHg LV V1 max 51.2 cm/sec MR max christy 457.9 cm/sec MR max PG 83.9 mmHg MR mean christy 350.5 cm/sec MR mean PG 57.6 mmHg MR VTI 142.8 cm SV(Ao) 388.7 ml SI(Ao) 200.8 ml/m\S\2 TR max christy 320.7 cm/sec
[2016-09-04 10:59] VITALS: BP 138/78; PULSE 70; TEMP 36.6; O2SAT 95
--- NOTE | 2016-09-04 11:56 | CARDIOLOGY CONSULTATION ---
DATE OF CONSULTATION: 09/04/2016 DATE OF CONSULTATION: 09/04/2016. HISTORY OF PRESENT ILLNESS: Víctor Coffey is an 80-year-old male seen in cardiology consultation per the request of Dr. Sajan Sargent for evaluation of non-ST segment elevation myocardial infarction. The patient's primary investigator internal affairs is Dr. Baldev Ruiz of our practice. His primary care provider is Dr. Raghu Murphy. The patient reports that he was in his normal state of health yesterday. He was cutting his grass using a combination of a self-propelled walk behind lawnmower as well as a riding lawnmower. While using the self-propelled walk behind lawnmower he had exertional left forearm pain with a tingling sensation that went into his left hand. This went on for a few minutes while he was exerting himself. He subsequently stopped walking and started using his lawn tractor and the symptoms went away. He subsequently discussed this with his family and became concerned about his heart and sought care in the Emergency Room. His EKG on presentation as well as on repeat this morning is nondiagnostic with findings of a chronic ventricular paced rhythm and therefore it is not diagnostic for the evaluation of ischemia. A mild elevation in his troponin was noted with troponin levels of 0.90, 0.122, and 0.133 ng/mL x3 with most recent reading at 8:36 this morning. The CPK and MB fractions have been negative thus far. The patient states that he is asymptomatic at the present time. He notes no definite recent chest discomfort, but does note that he has had worsening exertional shortness of breath. He does not believe that he had this shortness of breath when his biventricular pacemaker was placed in 2012 and notes that it is present; however, at the present time. He notes that he has not used any recent sublingual nitroglycerin doses. He had been admitted to [facility] for observation in August 2015 with exertional chest discomfort and mild elevation in his troponin I and underwent dobutamine stress echocardiogram at that time with nonischemic response and therefore continued medical management had been pursued at that time. PAST MEDICAL HISTORY: 1. Coronary heart disease with myocardial infarction in the right coronary artery territory dating back to 1983. He subsequently underwent coronary artery bypass grafting x2 in 1983 with BELLAMY to LAD and saphenous vein graft to the right coronary artery. 2. Inferior ST segment elevation myocardial infarction in July 2009 that occurred in the setting of acute antiplatelet withdrawal for an elective orthopedic surgery. He was transferred to [facility] and underwent bare metal stenting to the saphenous vein graft to the right coronary artery which had an acute thrombotic occlusion. 3. 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 The circumflex territory was supplied by a poor runoff given the left main occlusion, but that territory was felt to be small. 4. Chronic ischemic cardiomyopathy, patient had symptomatic bradycardia in 2012 prompting implantation of a biventricular pacemaker. Most recent echocardiogram reveals ejection fraction had improved from the 35% range to the 45% range. 5. Hypertension 6. Dyslipidemia. 7. Osteoarthritis. 8. Chronic atrial fibrillation for which he is on Coumadin. PAST SURGICAL HISTORY: 1. Coronary artery bypass grafting x2 1983 as outlined above. 2. Bare metal stenting to thrombotic lesion of the saphenous vein graft to the right coronary artery in 2009. 3. Biventricular pacemaker implantation at [facility] in 2012. SOCIAL HISTORY: The patient denies alcohol use. He is retired. He lives with his spouse. FAMILY HISTORY: Noncontributory. COMPREHENSIVE REVIEW OF SYSTEMS: A 10-point review of systems was reviewed and it noted for the above symptoms of recent exertional left forearm pain, chronic exertional shortness of breath that is worst over the last few months. The patient has chronic musculoskeletal back pain which has been worse recently. Otherwise negative. ALLERGIES: ADHESIVES, NIACIN, OXYCODONE, ROSUVASTATIN. OUTPATIENT MEDICATIONS: 1. Aspirin 81 mg by mouth daily. 2. Atorvastatin 10 mg by mouth daily. 3. Carvedilol 6.25 mg p.o. b.i.d. 4. Coenzyme Q10 one tablet by mouth daily. 5. Cyclosporine ophthalmology drops 2 times per day. 6. Digoxin 0.25 mg by mouth daily. 7. Proscar 5 mg by mouth daily. 8. Flonase 50 mcg 2 sprays in each nostril daily. 9. Furosemide 20 mg by mouth daily. 10. Neurontin 300 mg p.o. t.i.d. 11. Isosorbide mononitrate 120 mg by mouth daily. 12. Claritin 10 mg by mouth daily. 13. Losartan 25 mg by mouth daily. 14. Robaxin 500 mg q. 8 hours as needed for muscle spasm. 15. Nitroglycerin 0.4 mg as needed for chest pain. 16. Protonix 40 mg by mouth daily. 17. Temazepam 7.5 mg by mouth daily at bedtime. 18. Ultram 50 mg q. 2 hours p.r.n. pain. 19. Coumadin 5 mg alternating with 2.5 mg for dose adjusted INR of goal of 2-3. PHYSICAL EXAMINATION: VITAL SIGNS: Temperature 36.5, heart rate 74, respiration rate 18, blood pressure 166/81. GENERAL APPEARANCE: Awake and oriented x3, no acute distress. HEAD, EYES, EARS, NOSE, AND THROAT: Extraocular muscles were intact. Pupils equal and reactive to light. NECK: No bruits. No cervical lymphadenopathy. CARDIOVASCULAR: Regular rate and rhythm. A 2/6 systolic murmur heard best at the left axilla. ABDOMEN: Soft, nontender. EXTREMITIES: No edema. NEUROLOGIC: No focal deficits. DIAGNOSTIC DATA: EKG as outlined above with ventricular paced rhythm. Echocardiogram performed today and reviewed independently by the undersigned. There is a moderate sized inferior and inferolateral wall motion abnormality with hypokinesis to akinesis of the segments. The qualitative left ventricular ejection fraction was mildly reduced at 45%. Moderate to severe mitral regurgitation was noted with an eccentric mitral regurgitation jet that is corrected posteriorly and hugs the posterior wall of the left atrium. Mild tricuspid regurgitation is present. Pulmonary artery systolic pressure is mildly elevated at 45 mmHg. Compared to the prior study dating back to 2009, the left ventricular ejection fraction and inferior wall motion abnormality are chronic. The inferior wall motion abnormality dates back to before his 2010 stent. DIAGNOSTIC DATA: WBC is 8.6, hemoglobin 14.7, platelet count 190. INR is 2.7. Sodium 142, potassium 4.2, BUN 29, creatinine 1.3, troponin 0.90, 0.122 and 0.133 pg/mL. Pro-brain natriuretic peptide 1731 pg/mL. IMPRESSION: An 80-year-old male. 1. Non-ST segment elevation myocardial infarction. 2. Underlying ischemic cardiomyopathy, mild LV systolic dysfunction, with superimposed valvular heart disease mild or perhaps mild to moderate aortic valve stenosis, moderate to severe mitral regurgitation in the setting of posterior mitral valve leaflet dysfunction. 3. Chronic persistent atrial fibrillation. 4. History of symptomatic bradycardia prompting biventricular pacemaker implant in 2012. DISCUSSION AND RECOMMENDATIONS: The patient is known to have severe clark's point vessel disease. He has been managed conservatively with medication management since his last cardiac catheterization in 2009. He had presented with similar symptoms to this in both 2012 and 2015 at which time conservative medical management was pursued. In addition to the left forearm pain that occurred with exertion yesterday, which is a new symptom for him, the patient also describes worsening exertional shortness of breath that was not there a year ago per his recollection. Although he has severe CAD with bypass surgery dating back 33 years ago in 1983, he describes himself as being relatively physically active. At this time, I recommend transferring him to a tertiary care center for high risk cardiac catheterization/high risk PCI. He is felt to be high risk due to the nature of his clark's point vessel coronary artery disease and the need for technically complex intervention to the saphenous vein graft to the RCA back in 2009. At this time, the patient is stable to be transferred by ACLS ground. I discussed the case with Dr. Marcos who is continuous dryout operator helper at [facility] and had accepted the patient in transfer. At the present time, his Coumadin will be placed on hold pending [place] [facility] He will be allowed to eat today, with plans to keep him n.p.o. after midnight tonight for cardiac catheterization tomorrow. We discussed that there is probably a high likelihood that his disease has progressed to the point where medical management without intervention may be necessary if there is no culprit found on his coronary angiography, at which time attention will be paid to optimizing his medication therapy. He has had some blood pressure readings that are above goal while here in the hospital but for the most part they happen at goal. Since his pacemaker is intact with normal function as noted on recent device check on 08/15/2016, perhaps the next best move would be to increase his carvedilol dose to 12.5 mg b.i.d. He is already on long-acting nitrates. Perhaps also increasing his diuretic therapy would be indicated for treatment of heart failure would therefore help with prophylaxing him against angina as well. The [facility]. MARCELL
--- NOTE | 2016-09-04 13:41 | Discharge Summary ---
Discharge Summary Date of Service September 04, 2016. (Kayla Hooper, EBONY) Discharge Summary Admission Date: September 03, 2016 at 18:00 Discharge Date: September 04, 2016 Discharge Disposition: Acute care facility ([facility] ) Principal Diagnosis: Non-ST segment elevation myocardial infarction Problems/Secondary Diagnoses: A.fib CAD s/p CABG NC Chronic ischemic cardiomyopathy Bradycardia s/p pacemaker implantation HTN h/o of TIA Dyslipidemia BPH Acute on chronic low back pain GERD Immunizations: Have You Had Influenza Vaccine: Yes Influenza Vaccine Date: Feb 25, 2012 History of Tetanus Vaccine?: Yes Tetanus Immunization Date: Aug 25, 2010 History of Pneumococcal: Yes Pneumococcal Date: Aug 26, 2011 History of Hepatitis B Vaccine: No Procedures: SINGLE VIEW CHEST CLINICAL HISTORY: Atypical chest pain. FINDINGS: An AP, portable, upright chest radiograph is compared to study dated 09/01/2015. Correlation is made with chest CT dated 06/06/11. The examination is degraded by portable technique and patient rotation. A 3-lead cardiac pacemaker is unchanged in position and partially obscures the left mid chest. The heart is enlarged and there is atherosclerotic calcification of the thoracic aorta. Enlargement of the central pulmonary arteries suggests pulmonary artery hypertension. There is mild pulmonary vascular congestion. Emphysema and chronic interstitial thickening is similar to previous. There is chronic elevation of the right hemidiaphragm. No airspace consolidation is seen typical for pneumonia and there is no large pleural effusion. Apical scarring is observed. No pneumothorax is seen. The skeletal structures are osteopenic. The bony thorax is grossly intact. IMPRESSION: 1. Cardiomegaly and cardiac pacemaker. There is evidence of mild congestive failure. 2. No airspace consolidation or large pleural effusion is identified. Electronically signed by: Glen Noriega M.D. 09/03/2016 4:28 PM Dictated Date/Time: 09/03/2016 4:27 PM The status of this report is Signed. Draft = Not yet reviewed or approved by Radiologist. Signed = Reviewed and approved by Radiologist. ECHOCARDIOGRAM: Interpretation Summary * Name: HORTENSIA HOLDER Kwesi Study Date: 09/04/2016 07:03 AM BP: 148/78 mmHg * Patient Location: C.2E\S\E202\S\1 HR: 71 * : 1935 (M/d/yyyy) Gender: Male Height: 68 in * Age: 80 yrs Ethnicity: CA Weight: 176 lb * Ordering Physician: Sajan Sargent * Referring Physician: Self, Referred * Performed By: Maricruz Rutherford RDCS * * Reason For Study: CHF * BSA: 1.9 m2 * The study was technically adequate. * -- Conclusions -- * There is a moderate sized inferior and inferolateral wall motion abnormality with hypokinesis to akinesis of the segments. * Moderate concentric left ventricular hypertrophy is present in the wall with normal wall motion. * Left ventricular systolic function is mildly reduced. * The qualitative left ventricular ejection fraction=45% * The right ventricle is normal size. * The right ventricular systolic function is reduced as assessed by tricuspid annular plane systolic excursion (TAPSE) (TAPSE <1.6 cm). * The left atrium is severely dilated. * The right atrium is moderately dilated. * The aortic valve is mildl calcified. * Mild aortic regurgitation. * Mild valvular aortic stenosis. * There is moderate to severe mitral regurgitation. * The mitral regurgitant jet is eccentrically directed. * The posterior mitral valve leafltet is restricted due to the inferiorlateral hypokinesis. The mitral regurgitation jet hugs the posterior wall of the left atrium. * There is mild tricuspid regurgitation. * Mild pulmonary hypertension is present. The pulmonary artery systolic pressure is calculated to be 45 mm Hg, assuming a right atrial pressure of 3 mm Hg. Procedure Details * A complete two-dimensional transthoracic echocardiogram was performed (2D, M- mode, Doppler and color flow Doppler). Left Ventricle * The left ventricle is normal in size. * Moderate concentric left ventricular hypertrophy is present in the wall with normal wall motion. * Left ventricular systolic function is mildly reduced. * The qualitative left ventricular ejection fraction=45% * There is a moderate sized inferior and inferolateral wall motion abnormality with hypokinesis to akinesis of the segments. Right Ventricle * The right ventricle is normal size. * The right ventricular systolic function is reduced as assessed by tricuspid annular plane systolic excursion (TAPSE) (TAPSE <1.6 cm). Atria * The left atrium is severely dilated. * The right atrium is moderately dilated. * A pacemaker lead is noted in the right atrium. * There is no evidence of atrial septal defect, but resolution does not allow assessment for a patent foramen ovale. Mitral Valve * There is no mitral valve stenosis. * There is moderate to severe mitral regurgitation. * The mitral regurgitant jet is eccentrically directed. * The posterior mitral valve leafltet is restricted due to the inferiorlateral hypokinesis. The mitral regurgitation jet hugs the posterior wall of the left atrium. Tricuspid Valve * The tricuspid valve is normal. * There is no tricuspid stenosis. * There is mild tricuspid regurgitation. * Mild pulmonary hypertension is present. The pulmonary artery systolic pressure is calculated to be 45 mm Hg, assuming a right atrial pressure of 3 mm Hg. Aortic Valve * The aortic valve is trileaflet. * The aortic valve is mildl calcified. * Mild valvular aortic stenosis. * Mild aortic regurgitation. Pulmonic Valve * The pulmonary valve is not well seen, but the Doppler examination is normal without significant regurgitation or stenosis. Great Vessels * The aortic root and proximal ascending aorta are normal sized. Pericardium/Pleural * There is no pericardial effusion. Right Ventricle * A pacemaker lead is noted in the right ventricle. Great Vessels * Normal inferior vena cava size and collapsability with sniff indicates a normal right atrial pressure of 3 mmHg Left Ventricular Diastolic Function * The left ventricular diastolic function is abnormal based on the presence of left atrial enlargement, but is not graded due to the prescence of underlying atrial fibrillation. MMode 2D Measurements and Calculations IVSd 1.1 cm LVIDd 4.5 cm LVIDs 3.5 cm LVPWd 2.3 cm IVS/LVPW 0.49 FS 23.2 % EDV(Teich) 94.0 ml ESV(Teich) 50.2 ml EF(Teich) 46.6 % EDV(cubed) 93.1 ml ESV(cubed) 42.2 ml EF(cubed) 54.7 % LV mass(C)d 338.9 grams LV mass(C)dI 175.1 grams/m\S\2 SV(Teich) 43.8 ml SI(Teich) 22.6 ml/m\S\2 SV(cubed) 50.9 ml SI(cubed) 26.3 ml/m\S\2 Ao root diam 3.4 cm Ao root area 9.0 cm\S\2 ACS 0.81 cm LA dimension 4.5 cm asc Aorta Diam 2.9 cm LA/Ao 1.3 LVOT diam 1.8 cm LVOT area 2.6 cm\S\2 LVAd ap4 20.4 cm\S\2 LVLd ap4 6.1 cm EDV(MOD-sp4) 55.2 ml EDV(sp4-el) 57.9 ml LVAs ap4 13.4 cm\S\2 LVLs ap4 5.7 cm ESV(MOD-sp4) 26.7 ml ESV(sp4-el) 26.7 ml EF(MOD-sp4) 51.7 % EF(sp4-el) 53.8 % LVAd ap2 29.9 cm\S\2 LVLd ap2 7.0 cm EDV(MOD-sp2) 107.2 ml EDV(sp2-el) 108.2 ml LVAs ap2 18.9 cm\S\2 LVLs ap2 5.9 cm ESV(MOD-sp2) 50.8 ml ESV(sp2-el) 52.0 ml EF(MOD-sp2) 52.6 % EF(sp2-el) 51.9 % LVLd %diff 13.4 % EDV(MOD-bp) 82.8 ml LVLs %diff 2.4 % ESV(MOD-bp) 37.1 ml EF(MOD-bp) 55.2 % SV(MOD-sp4) 28.5 ml SI(MOD-sp4) 14.7 ml/m\S\2 SV(MOD-sp2) 56.3 ml SI(MOD-sp2) 29.1 ml/m\S\2 SV(MOD-bp) 45.7 ml SI(MOD-bp) 23.6 ml/m\S\2 SV(sp4-el) 31.2 ml SI(sp4-el) 16.1 ml/m\S\2 SV(sp2-el) 56.2 ml SI(sp2-el) 29.0 ml/m\S\2 Doppler Measurements and Calculations MV E max christy 135.3 cm/sec MV dec time 0.13 sec Ao V2 max 209.1 cm/sec Ao max PG 17.6 mmHg Ao max PG (full) 16.5 mmHg Ao V2 mean 145.9 cm/sec Ao mean PG 9.9 mmHg Ao V2 VTI 43.2 cm PETERSON(V,A) 0.63 cm\S\2 PETERSON(V,D) 0.63 cm\S\2 LV V1 max PG 1.0 mmHg LV V1 max 51.2 cm/sec MR max christy 457.9 cm/sec MR max PG 83.9 mmHg MR mean christy 350.5 cm/sec MR mean PG 57.6 mmHg MR VTI 142.8 cm SV(Ao) 388.7 ml SI(Ao) 200.8 ml/m\S\2 TR max christy 320.7 cm/sec Created: Initialized: 09/04/16; 0950 <Electronically signed by Fabian Montejo D.O.> Signed: 09/04/16 1025 Fabian Montejo D.O. The status of this report is Signed. Draft = Not yet reviewed or approved by Ticket Chopper Assembler. Signed = Reviewed and approved by Ticket Chopper Assembler. Consultations: Cardiology (Kayla Hooper, PA-C) Medication Reconciliation Continued Medications: Acetaminophen (Tylenol) 500 Mg Tab 500 MG PO DAILY PRN for Pain, TAB Aspirin (Aspirin Chewable) 81 Mg Chew 162 MG PO QAM Atorvastatin (Lipitor) 10 Mg Tab 10 MG PO QPM, TAB Carvedilol (Coreg) 6.25 Mg Tab 6.25 MG PO BID, TAB Cholecalciferol (Vitamin D 1000 Unit) 1,000 Unit Cap 1000 INTER.UNIT PO DAILY, CAP Coenzyme Q10 (Ubidecarenone) (Coq10) 200 Mg Cap 1-2 TAB PO DAILY Cyclosporine (Ophth) (Restasis) 0.05 % Emu 1 DROP OP BID, BTL Digoxin (Digoxin) 0.125 Mg Tab 0.125 MG PO DAILY Finasteride (Proscar) 5 Mg Tab 5 MG PO DAILY, TAB Fluticasone Propionate (Nasal) (Flonase Allergy Relief) 50 Mcg/Act Spr 2 SPRAYS ANA DAILY Furosemide (Lasix) 20 Mg Tab 20 MG PO QAM, TAB Gabapentin (Gabapentin) 300 Mg Cap 300 MG PO TID for 30 Days, #90 CAP 5 Refills Fobyxrhrjyl-Rprlfsnvsfz-Wkx C- (Glucosamine Chondroitin) 1 Tab Tab 1 TABLET PO BID Isosorbide Mononitrate Ext Rel (Imdur Ext Rel) 120 Mg Ertab 30 MG PO QAM, 0 Refills Loratadine (Claritin) 10 Mg Tab 10 MG PO QAM PRN for ALLERGIC REACTION, 0 Refills Losartan Potassium (Cozaar) 25 Mg Tab 1 TAB PO DAILY for 30 Days, #30 TAB 5 Refills Methocarbamol (Robaxin) 500 Mg Tab 500 MG PO Q8 PRN for Muscle Spasms, TAB Nitroglycerin (Nitrostat) 0.4 Mg Tab 0.4 MG UT PRN, 0 Refills Ocuvite Preservision (Ocuvite Preservision) 1 Tab Tab 1 TAB PO QAM, TAB Pantoprazole Sodium (Protonix) 40 Mg Tab 40 MG PO QAM, TAB Polyethylene Glycol 3350 (Polyethylene Glycol 3350) 1 Pow Pow 17 GM PO DAILY, #527 GM Temazepam (Temazepam) 7.5 Mg Cap 7.5 MG PO HS, #90 Tramadol (Ultram) 50 Mg Tab 50 MG PO Q12 PRN for Pain, TAB Warfarin Sod (Jantoven) 5 Mg Tab 5 MG PO 4XWK, TAB TAKES SUN,TUES,THURS,SAT. Warfarin Sodium (Coumadin) 5 Mg Tab 2.5 MG PO --, TAB Discharge Exam Review of Systems: Constitutional: No chills, No fatigue, No fever, No sweats, No weakness Respiratory: No cough, No hemoptysis, No shortness of breath Cardiovascular: No chest pain, No edema, No palpitations Abdomen: No constipation, No diarrhea, No nausea, No pain, No vomiting Musculoskeletal: No calf pain, No joint pain, No muscle pain, No swelling Genitourinary - Male: No dysuria, No hematuria Psychiatric: No anxiety, No depression symptoms Hematologic / Lymphatic: No abnormal bleeding/bruising Integumentary: No itch, No new/changing skin lesions, No rash Physical Exam: General Appearance: no apparent distress Eyes: normal inspection, PERRL ENT: hearing grossly normal Neck: supple Respiratory/Chest: lungs clear, no respiratory distress, no accessory muscle use Cardiovascular: regular rate, rhythm, + systolic murmur Abdomen / GI: normal bowel sounds, non tender, soft Extremities: no calf tenderness, no pedal edema Neurologic/Psychiatric: alert, normal mood/affect, oriented x 3 Skin: normal color, warm/dry, no rash (Kayla Hooper, PA-C) Hospital Course HISTORY OF PRESENT ILLNESS: The patient is a very pleasant 80-year-old male, who notes that he was cutting the grass and whenever he had a degree of chest heaviness he thought maybe it relates to his pacemaker, but then on directed questioning, he notes that is not there all the time. He then also noted that he felt fairly short of breath, although he related that more to cutting the grass, but what really got his attention was radiation of pain and tingling in his left arm and fingers. He notes that it lasted about 10 minutes, went away with rest and has not come back since, but it got his attention and certainly brought him to the ER for further evaluation. As a secondary complaint, he notes that he has got low back pain that has been gradually getting worse, especially over the last month or so. He follows with physiatry, who has done multiple injections. He tried PT a while ago; things were not really improving. He wears a brace; things are worsening. The pain is mostly in his low back and is starting to interfere with his daily life. He was just recently started on gabapentin for this as well. Non-ST segment elevation: - Admit to tele for cardiac monitoring - Trend cardiac enzymes- peak trop 0.133 - ECHO completed - EKGs - Consult cardiology, appreciate recommendations -- Transfer to [facility] on 09/04 due to high risk cardiac catheterization/high risk PCI -- Coumadin held pending [facility] evaluation -- NPO after midnight A.fib/CAD s/p CABG/NC/Chronic ischemic cardiomyopathy/bradycardia s/p pacemaker implantation/HTN: - Coumadin held per cardiology recommendations - Continue Digoxin - Continue Lasix, Imdur, Losartan, Coreg h/o of TIA/Dyslipidemia: Continue Lipitor and ASA BPH: Continue Finasteride Acute on chronic low back pain: - Continue Gabapentin and Tramadol - f/u w/ PCP outpatient once discharged from [facility] GERD: Protonix GI Prophylaxis: Maalox PRN, IV Zofran PRN, Colace and/or Milk of Mag PRN DVT prophylaxis: Coumadin Dispo: Discharge to [facility] Total Time Spent: Greater than 30 minutes This includes examination of the patient, discharge planning, medication reconciliation, and communication with other providers. (Kayla Hooper ., PA-C) PA Physician Supervision Note: I interviewed and examined the patient. Discussed with Kayla Hooper PAC and agree with findings and plan as documented in the note. Any exceptions or clarifications are listed here: None This pt is resting comfortable and understands after speaking to DR Summers that transfer to [facility] for cardiac cath, with high chance if intervention is needed it will be complex will be the best option. vitals reviewed pt has no concerns or questions Arrangements made by Dr Summers for pt to be accepted by Dr Marcos, at [facility] and awaiting bed assignment for ALS transfer Mary Lopez MD (Farhan Lopez M.D.) Discharge Instructions Please refer to the electronic Patient Visit Report (Discharge Instructions) for additional information. (Kayla Hooper ., PA-C) Follow-Up Please follow-up with your PCP within 5-7 days when discharged from [facility] Please follow-up/keep all of your subspecialty appointments (Kayla Hooper, PA-C) Additional Copies To Raghu Murphy M.D.
[2016-09-04 15:59] VITALS: BP 144/75; PULSE 70; TEMP 36.6; O2SAT 93
[2016-09-04] MEDS ORDERED: WARFARIN SOD 2.5 MG TAB PO SCH (16:00)
[2016-09-04] MEDS ORDERED: DIGOXIN 0.125 MG TAB PO SCH (16:00)
[2016-09-04 18:30] VITALS: BP 148/73; PULSE 71; TEMP 36.8; O2SAT 95
[2016-09-04 19:12] VITALS: BP 144/78; PULSE 68; TEMP 36.8; O2SAT 97
[2016-11-28] MEDS ORDERED: ISOS60TA25 PO (07:41)
[2016-11-28] MEDS ORDERED: LPT/40 PO (07:41)
[2016-11-28] MEDS ORDERED: MULT-506 PO (07:41)
[2016-11-28] MEDS ORDERED: GABA1CAP PO (07:41)
[2017-02-16] MEDS ORDERED: LOSA50TA6 PO (10:44)
[2017-03-13] MEDS ORDERED: ASPI-435 PO (13:10)
[2017-03-13] MEDS ORDERED: AZEL0.056 (13:10)
[2017-03-13] MEDS ORDERED: SPRIN/30 INH (13:10)
== END 2016-09-04 19:20 | disposition short-term general hospital (02) ==
LOC: ENRESERVDT → ENRESERVTM → C.EDB 15:49 → C.2E 18:00 → UNDOADMOB 19:04 → C.2E 19:04
PROVIDERS: ADMIT Family Medicine; ATTEND Family Medicine
DX: I21.4 Non-ST elevation (NSTEMI) myocardial infarction (principal); I48.1 Persistent atrial fibrillation; I25.10 Atherosclerotic heart disease of native coronary artery without angina pectoris; I25.5 Ischemic cardiomyopathy; E78.5 Hyperlipidemia, unspecified; I12.9 Hypertensive chronic kidney disease with stage 1 through stage 4 chronic kidney disease, or unspecified chronic kidney disease; K21.9 Gastro-esophageal reflux disease without esophagitis; N40.0 Benign prostatic hyperplasia without lower urinary tract symptoms; N18.2 Chronic kidney disease, stage 2 (mild); I25.2 Old myocardial infarction; Z95.0 Presence of cardiac pacemaker; Z95.1 Presence of aortocoronary bypass graft; Z86.73 Personal history of transient ischemic attack (TIA), and cerebral infarction without residual deficits; Z79.82 Long term (current) use of aspirin; Z79.01 Long term (current) use of anticoagulants; Z87.891 Personal history of nicotine dependence

== ENCOUNTER → 2016-10-30 | Outpatient (CLI) | payer BC ==
[~2016-10-30] MED LIST changes: -ATOR10TA82 PO; +ATOR10TA88 PO; -CHOL100010 PO; +CHOL100027 PO; -COEN1CAP28 PO; +COEN1CAP7 PO; +CYCL0.052 OP; -CZR25 PO; -DIGO0.122 PO; -FLNIN NAE; +FLUT0.15 NAE; +GABA1CAP PO; +ISOS60TA25 PO; +LNX125 PO; +LOSA1TAB PO; +LPT/40 PO; +METH500T37 PO; +MULT-506 PO; +NTRGSL/4 UT; +POLY3350 PO; -POLY335040 PO; -RSTOPS OPB; -TEMA15CA4 PO; +TEMA7.5C13 PO; +WARF5TAB90 PO; -[UNRECOGNIZED DRUG - OTHER] OPB
[2016-10-30 13:22] LABS: ALT/SGPT 26 U/L (12-78); AST/SGOT 27 U/L (15-37); BLOOD UREA NITROGEN 21 mg/dl (7-18); BUN/CREATININE RATIO 17.6 (10-20); CALCIUM 9.5 mg/dl (8.5-10.1); CARBON DIOXIDE 27 mmol/L (21-32); CHLORIDE 104 mmol/L (98-107); GLUCOSE 98 mg/dl (70-99); POTASSIUM 4.9 mmol/L (3.5-5.1); SODIUM 138 mmol/L (136-145)
[2016-10-30 13:25] LABS: ALB/GLOB RATIO 0.9 (0.9-2); ALKALINE PHOSPHATASE 61 U/L (45-117)
== END | disposition home or self-care (01) ==
LOC: C.LAB 11:56
PROVIDERS: ATTEND Physician Assistant
DX: I25.5 Ischemic cardiomyopathy (principal); I25.10 Atherosclerotic heart disease of native coronary artery without angina pectoris

== ENCOUNTER → 2016-11-11 | Outpatient (CLI) | payer BC ==
[2016-11-14 12:11] LABS: FREE KAPPA/LAMBDA RATIO 1.74 (0.26-1.65); FREE LAMBDA 28.2 MG/L (5.7-26.3); GAMMA GLOBULIN 1.5 G/DL (0.8-1.7); IMMUNOFIXATION IGA SERUM 186 MG/DL (81-463); IMMUNOFIXATION IGG SERUM 1669 MG/DL (694-1618); IMMUNOFIXATION IGM SERUM 82 MG/DL (48-271); TOTAL PROTEIN 7.4 G/DL (6.2-8.3)
== END ==
LOC: C.LAB 11:11
PROVIDERS: ATTEND Family Medicine
DX: R77.1 Abnormality of globulin (principal)

== ENCOUNTER → 2016-11-27 | Outpatient (CLI) | payer BC ==
[2016-11-27 13:24] LABS: HEMATOCRIT 44.6 % (42-52); MEAN CELL VOLUME 94.3 fL (80-100); MEAN CORPUSCULAR HEMOGLOBIN 30.4 pg (25-34); MEAN CORPUSCULAR HGB CONC 32.3 g/dl (32-36); PLATELET COUNT 186 K/uL (130-400); RED BLOOD COUNT 4.73 M/uL (4.7-6.1); WHITE BLOOD COUNT 8.48 K/uL (4.8-10.8)
[2016-11-27 13:59] LABS: URINE PROTIEN/CREAT RATIO 0.2 (0-0.2); URINE TOTAL PROTEIN 11.3 mg/dl (0-11.9)
[2016-11-27 14:07] LABS: BLOOD UREA NITROGEN 13 mg/dl (7-18); BUN/CREATININE RATIO 13.4 (10-20); CALCIUM 8.9 mg/dl (8.5-10.1); CARBON DIOXIDE 30 mmol/L (21-32); CHLORIDE 109 mmol/L (98-107); GLUCOSE 95 mg/dl (70-99); PHOSPHORUS 2.4 mg/dl (2.5-4.9); POTASSIUM 4.1 mmol/L (3.5-5.1); SODIUM 143 mmol/L (136-145)
[2016-11-27 14:26] LABS: URINE APPEARANCE CLEAR (CLEAR); URINE BILIRUBIN NEG (NEG); URINE COLOR YELLOW; URINE EPITHELIAL CELL AUTO 0-5 /lpf (0-5); URINE NITRITE NEG (NEG); URINE SPECIFIC GRAVITY 1.018 (1.000-1.030); UROBILINOGEN NEG (NEG)
[2016-11-27 14:28] LABS: MANUAL MICROSCOPIC REQUIRED? NO; REVIEW REQ? NO
== END | disposition home or self-care (01) ==
LOC: C.LAB 11:34
PROVIDERS: ATTEND Internal Medicine Nephrology
DX: I12.9 Hypertensive chronic kidney disease with stage 1 through stage 4 chronic kidney disease, or unspecified chronic kidney disease (principal); R60.9 Edema, unspecified; N25.81 Secondary hyperparathyroidism of renal origin; N18.2 Chronic kidney disease, stage 2 (mild); R10.33 Periumbilical pain

== ENCOUNTER → 2016-11-27 | Outpatient (CLI) | payer BC ==
--- NOTE | 2016-11-27 11:40 | DIAGNOSTIC IMAGING REPORT ---
KUB CLINICAL HISTORY: R10.33 pain COMPARISON STUDY: None. FINDINGS: Nonobstructive bowel pattern. Renal and psoas shows are unremarkable. Degenerative change lumbar spine as well as sacroiliac joints. Moderate degenerative change of the hips. IMPRESSION: Nonobstructive bowel pattern. No evidence for fecal impaction or fecal stasis. The above report was generated using voice recognition software. It may contain grammatical, syntax or spelling errors. Electronically signed by: Emile Barillas M.D. 11/27/2016 11:39 AM Dictated Date/Time: 11/27/2016 11:37 AM
== END | disposition home or self-care (01) ==
LOC: C.RAD1850 11:09
PROVIDERS: ATTEND Nurse Practitioner
DX: R10.33 Periumbilical pain (principal)

== ENCOUNTER → 2016-12-02 | Day surgery (SDC) | payer BC ==
[2016-11-28 07:44] VITALS: BMI 26.0
[~2016-12-02] VITALS: Ht 170.2 cm; Wt 77.3 kg
[~2016-12-02] MED LIST changes: -ACET-1256 PO; -ATOR10TA88 PO; -GABA1CAP4 PO; -ISOS120T5 PO; +LIDOCAINE HCL 2% 2 ML VIAL (20MG/ML) ONE; -MULT-190 PO; +ONDANSETRON INJ 2 MG/ML 2 ML VIAL IV PRN; +PROPOFOL IV EMULSION 10 MG/ML 20 ML VIAL IV ONE
[2016-12-02 09:43] VITALS: Ht 170.2 cm; Wt 77.3 kg
--- NOTE | 2016-12-02 10:02 | Endo History and Physical ---
History & Physical Date of Service: Dec 02, 2016. Chief Complaint: Abdominal pain Referring Physician: Ms. Smith History of Present Illness Patient referred for EGD to evaluate a history of right-sided abdominal discomfort. The patient denies having any difficulty swallowing or pain with swallowing. Past Medical History Atrial Fibrillation, Angioplasty/Stent, Arthritis, Pacemaker, Male Genitourinary Prob., Reflux, CVA/TIA, IN Past Surgical History Hx Cardiac Surgery: Yes (HEART CATH X2, STENT X1; CABG X2 VESSELS) Hx Internal Defibrillator: No Hx Pacemaker: Yes Hx Abdominal Surgery: Yes (HERNIA REPAIR X2) Hx of Implantable Prosthesis: No Hx Post-Op Nausea and Vomiting: No Hx Cancer Surgery: No Hx Thoracic Surgery: No Hx Orthopedic: Yes (RT TKA, LT THUMB JOINT REPLACEMENT) Hx Urinary Tract Surgery: No Family History None Social History Smoking Status: Former Smoker Hx Substance Use: No Hx Alcohol Use: Yes (HX OCCASIONAL - QUIT 5 YEARS AGO) Allergies Coded Allergies: Adhesives (Verified Allergy, Intermediate, SKIN IRRITATION, 12/02/16) Niacin (Verified Adverse Reaction, Unknown, FLUSHING, 12/02/16) Oxycodone (Verified Adverse Reaction, Unknown, sick, GI, 12/02/16) Rosuvastatin (Verified Adverse Reaction, Unknown, CONSTIPATION, 12/02/16) Current Medications Reported Home Medications Medications Dose Route/Sig Max Daily Dose Days Date Category Dose Instructions Multivitamin (Multivitamins) Tab 1 Tab PO QAM 11/28/16 Reported Neurontin (Gabapentin) 100 Mg Cap 100 Mg PO TID 11/28/16 Reported Lipitor (Atorvastatin) 40 Mg Tab 40 Mg PO QPM 11/28/16 Reported Imdur Ext Rel (Isosorbide Mononitrate) 60 Mg Ertab 60 Mg PO QAM 11/28/16 Reported Coumadin (Warfarin Sodium) 5 Mg Tab 2.5 Mg PO 3XWK 09/03/16 Reported MON,WED,FRI Coq10 (Coenzyme Q10 (Ubidecarenone)) 200 Mg Cap 300 Mg PO QAM 09/03/16 Reported Temazepam 7.5 Mg Cap 7.5 Mg PO HS 09/03/16 Reported Digoxin 0.125 Mg Tab 0.125 Mg PO QAM 09/03/16 Reported Polyethylene Glycol 3350 1 Pow Pow 17 Gm PO BID 09/03/16 Reported Vitamin D 1000 Unit (Cholecalciferol) 1,000 Unit Cap 1,000 Inter.unit PO QAM 09/03/16 Reported Cozaar (Losartan Potassium) 25 Mg Tab 1 Tab PO QPM 09/03/16 Reported Restasis (Cyclosporine (Ophth)) 0.05 % Emu 1 Drop OP BID 09/03/16 Reported Flonase Allergy Relief (Fluticasone Propionate (Nasal)) 50 Mcg/Act Spr 1 [place] ANA BID 09/03/16 Reported Proscar (Finasteride) 5 Mg Tab 5 Mg PO QPM 06/05/16 Reported Robaxin (Methocarbamol) 500 Mg Tab 500 Mg PO QAM 02/13/15 Reported Lasix (Furosemide) 20 Mg Tab 20 Mg PO QAM 10/24/14 Reported Coreg (Carvedilol) 6.25 Mg Tab 6.25 Mg PO BID 09/05/14 Reported Ultram (Tramadol HCl) 50 Mg Tab 50 Mg PO Q12 PRN 10/05/13 Reported Jantoven (Warfarin Sodium) 5 Mg Tab 5 Mg PO 4XWK 01/29/13 Reported SUN,TUES,THURS,SAT Protonix (Pantoprazole Sodium) 40 Mg Tab 40 Mg PO QAM 08/25/12 Reported Glucosamine Chondroitin (Ixaooymkwdx-Wttnwfmcrst-Bjd C-) 1 Tab Tab 1 Tablet PO BID 08/25/12 Reported Claritin (Loratadine) 10 Mg Tab 10 Mg PO QAM 06/06/11 Reported Nitrostat (Nitroglycerin) 0.4 Mg Tab 0.4 Mg UT UD PRN 08/23/09 Reported Aspirin Chewable (Aspirin) 81 Mg Chew 2 Tabs PO QAM 08/02/09 Reported Vital Signs Weight (Kilograms): 77.27 Height (Feet): 5 Height (Inches): 7 Physical Exam General Appearance: no apparent distress Respiratory/Chest: Auscultation: deminished air movement Cardiovascular: Heart Auscultation: RRR, murmur Abdomen: Inspection & Palpation: soft Assessment and Plan Patient to have upper endoscopy today for evaluation of right-sided abdominal discomfort. We have discussed the risks of upper endoscopy to include bleeding , infection, perforation and aspiration.
--- NOTE | 2016-12-02 10:32 | GI REPORT ---
Procedure Date: 12/02/2016 10:03 AM Procedure: Upper GI endoscopy Indications: Abdominal pain in the right upper quadrant, Nausea Medicines: Monitored Anesthesia Care Complications: No immediate complications. Estimated blood loss: Minimal. Estimated Blood Loss: Estimated blood loss was minimal. Procedure: Pre-Anesthesia Assessment: - Prior to the procedure, a History and Physical was performed, and patient medications, allergies and sensitivities were reviewed. The patient's tolerance of previous anesthesia was reviewed. - The risks and benefits of the procedure and the sedation options and risks were discussed with the patient. All questions were answered and informed consent was obtained. - Patient identification and proposed procedure were verified prior to the procedure by the physician, the nurse and the apartment coordinator. The procedure was verified in the procedure room. - Pre-procedure physical examination revealed no contraindications to sedation. - ASA Grade Assessment: IV - A patient with severe systemic disease that is a constant threat to life. - After reviewing the risks and benefits, the patient was deemed in satisfactory condition to undergo the procedure. - The anesthesia plan was to use monitored anesthesia care (MAC). - Immediately prior to administration of medications, the patient was re-assessed for adequacy to receive sedatives. - The heart rate, respiratory rate, oxygen saturations, blood pressure, adequacy of pulmonary ventilation, and response to care were monitored throughout the procedure. - The physical status of the patient was re-assessed after the procedure. After obtaining informed consent, the endoscope was passed under direct vision. Throughout the procedure, the patient's blood pressure, pulse, and oxygen saturations were monitored continuously. The Scope was introduced through the mouth, and advanced to the third part of duodenum. The upper GI endoscopy was accomplished without difficulty. The patient tolerated the procedure well. Findings: The upper third of the esophagus and middle third of the esophagus were normal. The Z-line was irregular and was found 38 cm from the incisors. Biopsies were taken with a cold forceps for histology. Estimated blood loss was minimal. A small hiatus hernia was found. The proximal extent of the gastric folds (end of tubular esophagus) was 39 cm from the incisors. The hiatal narrowing was 40 cm from the incisors. The Z-line was 38 cm from the incisors. Diffuse mild inflammation characterized by congestion (edema), erythema and granularity was found in the entire examined stomach. Biopsies were taken with a cold forceps for histology. Estimated blood loss was minimal. The examined duodenum was normal. Biopsies were taken with a cold forceps for histology. Estimated blood loss was minimal. Impression: - Normal upper third of esophagus and middle third of esophagus. - Z-line irregular, 38 cm from the incisors. Biopsied. - Small hiatus hernia. - Chronic gastritis. Biopsied. - Normal examined duodenum. Biopsied. Recommendation: - Discharge patient to home (ambulatory). - Advance diet as tolerated today. - Await pathology results. - Perform a RUQ ultrasound at appointment to be scheduled. Vimal Henry D.O. Vimal Henry, 12/02/2016 10:31:50 AM This report has been signed electronically. Note Initiated On: 12/02/2016 10:03 AM I attest to the content of the Intraoperative Record and orders documented therein, exceptions below
--- NOTE | 2016-12-02 10:34 | Discharge Instructions ---
Endoscopy Patient Instructions Date / Procedure(s) Performed Dec 02, 2016. EGD Allergy Information Coded Allergies: Adhesives (Verified Allergy, Intermediate, SKIN IRRITATION, 12/02/16) Niacin (Verified Adverse Reaction, Unknown, FLUSHING, 12/02/16) Oxycodone (Verified Adverse Reaction, Unknown, sick, GI, 12/02/16) Rosuvastatin (Verified Adverse Reaction, Unknown, CONSTIPATION, 12/02/16) Discharge Date / Findings Dec 02, 2016. Small hiatal hernia Mild gastritis Medication Instructions Stopped Medication(s): stopped coumadin after Friday dose. States he took a shot in stomach after stopping. Not sure of name of it or when started. Reported Home Medications Medications Dose Route/Sig Max Daily Dose Days Date Category Dose Instructions Multivitamin (Multivitamins) Tab 1 Tab PO QAM 11/28/16 Reported Neurontin (Gabapentin) 100 Mg Cap 100 Mg PO TID 11/28/16 Reported Lipitor (Atorvastatin) 40 Mg Tab 40 Mg PO QPM 11/28/16 Reported Imdur Ext Rel (Isosorbide Mononitrate) 60 Mg Ertab 60 Mg PO QAM 11/28/16 Reported Coumadin (Warfarin Sodium) 5 Mg Tab 2.5 Mg PO 3XWK 09/03/16 Reported MON,WED,FRI Coq10 (Coenzyme Q10 (Ubidecarenone)) 200 Mg Cap 300 Mg PO QAM 09/03/16 Reported Temazepam 7.5 Mg Cap 7.5 Mg PO HS 09/03/16 Reported Digoxin 0.125 Mg Tab 0.125 Mg PO QAM 09/03/16 Reported Polyethylene Glycol 3350 1 Pow Pow 17 Gm PO BID 09/03/16 Reported Vitamin D 1000 Unit (Cholecalciferol) 1,000 Unit Cap 1,000 Inter.unit PO QAM 09/03/16 Reported Cozaar (Losartan Potassium) 25 Mg Tab 1 Tab PO QPM 09/03/16 Reported Restasis (Cyclosporine (Ophth)) 0.05 % Emu 1 Drop OP BID 09/03/16 Reported Flonase Allergy Relief (Fluticasone Propionate (Nasal)) 50 Mcg/Act Spr 1 [place] ANA BID 09/03/16 Reported Proscar (Finasteride) 5 Mg Tab 5 Mg PO QPM 06/05/16 Reported Robaxin (Methocarbamol) 500 Mg Tab 500 Mg PO QAM 02/13/15 Reported Lasix (Furosemide) 20 Mg Tab 20 Mg PO QAM 10/24/14 Reported Coreg (Carvedilol) 6.25 Mg Tab 6.25 Mg PO BID 09/05/14 Reported Ultram (Tramadol HCl) 50 Mg Tab 50 Mg PO Q12 PRN 10/05/13 Reported Jantoven (Warfarin Sodium) 5 Mg Tab 5 Mg PO 4XWK 01/29/13 Reported SUN,TUES,THURS,SAT Protonix (Pantoprazole Sodium) 40 Mg Tab 40 Mg PO QAM 08/25/12 Reported Glucosamine Chondroitin (Pktuybbooos-Snmhoeokiyj-Bqg C-) 1 Tab Tab 1 Tablet PO BID 08/25/12 Reported Claritin (Loratadine) 10 Mg Tab 10 Mg PO QAM 06/06/11 Reported Nitrostat (Nitroglycerin) 0.4 Mg Tab 0.4 Mg UT UD PRN 08/23/09 Reported Aspirin Chewable (Aspirin) 81 Mg Chew 2 Tabs PO QAM 08/02/09 Reported Provider Instructions Activity Restrictions - No exercising or heavy lifting for 24 hours. - Do not drink alcohol the day of the procedure. - Do not drive a car or operate machinery until the day after the procedure. - Do not make any important decisions or sign important papers in 24 hours after the procedure. Following Day: - Return to full activity which may include returning to work/school. Diet Start your diet with liquids and light foods (jello, soup, juice, toast). Then eat your usual diet if not nauseated. Treatment For Common After Affects For mild abdominal pain, bloating, or excessive gas: - Rest - Eat lightly - Lie on right side Follow-Up Information Follow-up with Dr. Murphy and Ms. Smith as scheduled Ultrasound of abdomen to be scheduled. Anesthesia Information What You Should Know You have had a procedure that required some medicine to reduce anxiety and discomfort. This treatment is called moderate sedation. After receiving the treatment, you may be sleepy, but you will be able to breathe on your own. The effects of the treatment may last for several hours. Follow these instructions along with Activity/Diet recommendations noted above: * Do NOT do anything where dizziness or clumsiness would be dangerous. * Rest quietly at home today, then you can be up and about tomorrow. * Have a responsible person stay with you the rest of today. * You may have had an I.V. today. If so, you may take the dressing off later today. Recommendations Call your doctor if: * Trouble breathing * Continuous vomiting for more than 24 hours * Temperature above 101 degrees * Severe abdominal pain or bloating * Pain not relieved by pain medicine ordered * There is increased drainage or redness from any incision * A large amount of rectal bleeding greater than 2-3 tablespoons. (If you had a polyp/s removed or have hemorrhoids, a small amount of blood - from the rectum is to be expected.) * You have any unanswered questions or concerns. IN THE EVENT OF A SERIOUS EMERGENCY, GO TO THE NEAREST EMERGENCY ROOM Your discharge instructions were prepared by provider Vimal Henry. Patient Instructions Signature Page Víctor Coffey Patient (or Guardian) Signature/Date: I have read and understand the instructions given to me by my caregivers. Caregiver/RN/Doctor Signature/Date: The above-named patient and/or guardian has received patient instructions on this date. + Original Patient Signature Page (only) stays with chart. Please make copy for patient.
--- NOTE | 2016-12-02 11:06 | Anesthesiology Progress Note ---
Anesthesia Post Op Note Date & Time Dec 02, 2016 at 11:06 Vital Signs Pain Intensity: 0 Vital Signs Past 12 Hours Date Time Temp Pulse Resp B/P (MAP) Pulse Ox O2 Delivery O2 Flow Rate FiO2 12/02/16 10:50 70 20 111/58 (75) 95 Room Air 12/02/16 10:35 74 16 111/62 (78) 97 Room Air 12/02/16 09:56 36.5 84 20 147/84 (105) 94 Room Air Notes Mental Status: alert / awake / arousable, participated in evaluation Pt Amnestic to Procedure: Yes Nausea / Vomiting: adequately controlled Pain: adequately controlled Airway Patency, RR, SpO2: stable & adequate BP & HR: stable & adequate Hydration State: stable & adequate Anesthetic Complications: no major complications apparent
[2016-12-02 11:12] VITALS: BP 120/66; PULSE 72; O2SAT 96
== END | disposition home or self-care (01) ==
LOC: C.GI 09:17
PROVIDERS: ATTEND Internal Medicine Gastroenterology
DX: R10.11 Right upper quadrant pain (principal); K44.9 Diaphragmatic hernia without obstruction or gangrene; G47.33 Obstructive sleep apnea (adult) (pediatric); I25.2 Old myocardial infarction; I25.10 Atherosclerotic heart disease of native coronary artery without angina pectoris; I10 Essential (primary) hypertension; I50.9 Heart failure, unspecified; E78.5 Hyperlipidemia, unspecified; Z95.0 Presence of cardiac pacemaker; I48.91 Unspecified atrial fibrillation; K21.9 Gastro-esophageal reflux disease without esophagitis; Z86.73 Personal history of transient ischemic attack (TIA), and cerebral infarction without residual deficits; Z95.5 Presence of coronary angioplasty implant and graft; Z96.651 Presence of right artificial knee joint; Z87.891 Personal history of nicotine dependence; Z79.01 Long term (current) use of anticoagulants

== ENCOUNTER 2017-02-14 10:57 | Observation (INO) | payer BC ==
[~2017-02-14] VITALS: Ht 172.7 cm; Wt 78.0 kg
[~2017-02-14 10:57] MED LIST changes: -LIDOCAINE HCL 2% 2 ML VIAL (20MG/ML) ONE; -ONDANSETRON INJ 2 MG/ML 2 ML VIAL IV PRN; -PROPOFOL IV EMULSION 10 MG/ML 20 ML VIAL IV ONE
--- NOTE | 2017-02-14 11:46 | DIAGNOSTIC IMAGING REPORT ---
CHEST ONE VIEW PORTABLE CLINICAL HISTORY: Difficult chest pain and shortness of breath COMPARISON STUDY: September 03, 2016 FINDINGS: The heart remains enlarged. There are postsurgical changes of a midline sternotomy. There is a left subclavian dual-chamber central venous pacemaker. There is mild interstitial thickening/edema similar to the preceding study. There is no focal pulmonary consolidation. There are no pleural effusions.[ IMPRESSION: Cardiomegaly and stable mild interstitial thickening/edema. No evidence of focal pulmonary consolidation. Electronically signed by: Paulo Webb M.D. 02/14/2017 11:45 AM Dictated Date/Time: 02/14/2017 11:44 AM
[2017-02-14 12:14] LABS: BASO % 0.3 %; BASO ABS # 0.03 K/uL (0-0.2); COMPLETE YES; EOS % 4.4 %; HEMATOCRIT 42.9 % (42-52); IG% 0.2 %; LYMPH % 15.6 %; LYMPH ABS # 1.36 K/uL (1.2-3.4); MEAN CELL VOLUME 91.7 fL (80-100); MEAN CORPUSCULAR HGB CONC 33.8 g/dl (32-36); MEAN PLATELET VOLUME 9.9 fL (7.4-10.4); MONO % 6.7 %; NEUT % 72.8 %; PLATELET COUNT 188 K/uL (130-400); RED BLOOD COUNT 4.68 M/uL (4.7-6.1)
[2017-02-14 12:24] LABS: INR 2.9 (0.9-1.1); PARTIAL THROMBOPLASTIN RATIO 1.3; PROTHROMBIN TIME (PATIENT) 32.1 SECONDS (9.0-12.0)
[2017-02-14 12:36] LABS: CALCIUM 8.7 mg/dl (8.5-10.1); POTASSIUM 4.1 mmol/L (3.5-5.1)
--- NOTE | 2017-02-14 12:47 | EMERGENCY ROOM VISIT NOTE ---
History Report prepared by Dacia: Harjeet Cherry Under the Supervision of: Dr. Scooby Llamas M.D. First contact with patient: 11:06 Chief Complaint: SHORTNESS OF BREATH Stated Complaint: SOB History of Present Illness The patient is an 81 year old male who presents to the Emergency Room with complaints of worsening shortness of breath starting yesterday that is worse with exertion. The patient additionally states that he additionally has some chest discomfort and a cough. The patient has a history of a double bypass, a stent placement, and he had a heart catheterization in September. He also has a pacemaker, and he is currently on Coumadin. He states that yesterday he was exerting himself, and the shortness of breath lasted 5-10 minutes. He states that he took nitro today for the pain, and it did not help. Pt denies LOC, headache, fevers, chills, diaphoresis, visual changes, neck pain, nausea, vomiting, abdominal pain, back pain, melena, hematochezia, urinary symptoms, numbness, weakness, lymphadenopathy, rash, or other complaints. Source of History: patient Onset: yesterday Position: other (global) Quality: other (shortness of breath) Timing: worsening Associated Symptoms: + chest pain Review of Systems See HPI for pertinent positives and negatives. A total of ten systems were reviewed and were otherwise negative. Past Medical & Surgical Medical Problems: (1) Abdominal pain (2) Benign hypertension (3) Chest pain (4) Colonoscopy (5) Coronary artery bypass grafts x 2 (6) Dyslipidemia (7) History of TIA (transient ischemic attack) (8) Hx of myocardial infarction (9) Hyperlipidemia (10) Hypertension (11) Pacemaker (12) Placement of stent Surgical Problems: (1) History of coronary artery bypass graft x 2 (2) Stented coronary artery Family History Heart disease Hypertension Social History Smoking Status: Former Smoker Alcohol Use: occasionally Drug Use: none Marital Status: Housing Status: lives with family Occupation Status: retired Current/Historical Medications Scheduled Aspirin (Aspirin Chewable), 2 TABS PO QAM Atorvastatin (Lipitor), 40 MG PO QPM Carvedilol (Coreg), 6.25 MG PO BID Cholecalciferol (Vitamin D 1000 Unit), 1,000 INTER.UNIT PO QAM Coenzyme Q10 (Ubidecarenone) (Coq10), 300 MG PO QAM Cyclosporine (Ophth) (Restasis), 1 DROP OP BID Digoxin (Digoxin), 0.125 MG PO QAM Finasteride (Proscar), 5 MG PO QPM Fluticasone Propionate (Nasal) (Flonase Allergy Relief), 1 SPRAY ANA BID Furosemide (Lasix), 20 MG PO QAM Gabapentin (Neurontin), 100 MG PO TID Xqbvtzzaban-Spxzcofaclp-Cib C- (Glucosamine Chondroitin), 1 TABLET PO BID Isosorbide Mononitrate Ext Rel (Imdur Ext Rel), 60 MG PO QAM Loratadine (Claritin), 10 MG PO QAM Losartan Potassium (Cozaar), 1 TAB PO QPM Methocarbamol (Robaxin), 500 MG PO QAM Multivitamin (Multivitamin), 1 TAB PO QAM Pantoprazole Sodium (Protonix), 40 MG PO QAM Polyethylene Glycol 3350 (Polyethylene Glycol 3350), 17 GM PO BID Temazepam (Temazepam), 7.5 MG PO HS Warfarin Sod (Jantoven), 5 MG PO 4XWK Warfarin Sodium (Coumadin), 2.5 MG PO 3XWK Scheduled PRN Nitroglycerin (Nitrostat), 0.4 MG UT UD PRN for Chest Pain Tramadol (Ultram), 50 MG PO Q12 PRN for Pain Allergies Coded Allergies: Adhesives (Verified Allergy, Intermediate, SKIN IRRITATION, 02/14/17) Niacin (Verified Adverse Reaction, Unknown, FLUSHING, 02/14/17) Oxycodone (Verified Adverse Reaction, Unknown, sick, GI, 02/14/17) Rosuvastatin (Verified Adverse Reaction, Unknown, CONSTIPATION, 02/14/17) Physical Exam Vital Signs Date Time Temp Pulse Resp B/P (MAP) Pulse Ox O2 Delivery O2 Flow Rate FiO2 02/14/17 14:00 70 26 144/86 95 Room Air 02/14/17 13:30 70 25 144/83 95 Room Air 02/14/17 13:26 70 02/14/17 13:19 Room Air 02/14/17 13:00 76 26 141/102 96 Room Air 02/14/17 12:30 79 24 114/65 92 Room Air 02/14/17 12:00 70 24 120/76 94 Room Air 02/14/17 11:30 70 21 120/62 94 Room Air 02/14/17 11:30 95 Room Air 02/14/17 11:30 95 Room Air 02/14/17 11:18 74 02/14/17 11:05 95 Room Air 02/14/17 11:02 36.3 76 20 122/70 94 Room Air Physical Exam GENERAL: Awake, alert, well-appearing, in no distress HENT: Normocephalic, atraumatic. Oropharynx unremarkable. EYES: Normal conjunctiva. Sclera non-icteric. NECK: Supple. No nuchal rigidity. FROM. No JVD. RESPIRATORY: Clear to auscultation. CARDIAC: Systolic murmur noted. Regular rate, normal rhythm. Extremities warm and well perfused. Pulses equal. ABDOMEN: Soft, non-distended. No tenderness to palpation. No rebound or guarding. No masses. RECTAL: Deferred. MUSCULOSKELETAL: Chest examination reveals no tenderness. The back is symmetrical on inspection without obvious abnormality. There is no CVA tenderness to palpation. No joint edema. LOWER EXTREMITIES: Trace edema. Calves are equal size bilaterally and non- tender. No discoloration. NEURO: Normal sensorium. No sensory or motor deficits noted. SKIN: No rash or jaundice noted. Medical Decision & Procedures ER Provider Diagnostic Interpretation: Radiology results as stated below per my review and radiologist interpretation: CHEST ONE VIEW PORTABLE CLINICAL HISTORY: Difficult chest pain and shortness of breath COMPARISON STUDY: September 03, 2016 FINDINGS: The heart remains enlarged. There are postsurgical changes of a midline sternotomy. There is a left subclavian dual-chamber central venous pacemaker. There is mild interstitial thickening/edema similar to the preceding study. There is no focal pulmonary consolidation. There are no pleural effusions.[ IMPRESSION: Cardiomegaly and stable mild interstitial thickening/edema. No evidence of focal pulmonary consolidation. Electronically signed by: Paulo Webb M.D. 02/14/2017 11:45 AM Dictated Date/Time: 02/14/2017 11:44 AM Laboratory Results 02/14/17 11:30 Red Blood Count 4.68, Mean Corpuscular Volume 91.7, Mean Corpuscular Hemoglobin 31.0, Mean Corpuscular Hemoglobin Concent 33.8, Mean Platelet Volume 9.9, Neutrophils (%) (Auto) 72.8, Lymphocytes (%) (Auto) 15.6, Monocytes (%) (Auto) 6.7, Eosinophils (%) (Auto) 4.4, Basophils (%) (Auto) 0.3, Neutrophils # (Auto) 6.33, Lymphocytes # (Auto) 1.36, Monocytes # (Auto) 0.58, Eosinophils # (Auto) 0.38, Basophils # (Auto) 0.03 02/14/17 11:30 Test 02/14/17 11:30 02/14/17 11:39 White Blood Count 8.70 K/uL (4.8-10.8) Red Blood Count 4.68 M/uL (4.7-6.1) Hemoglobin 14.5 g/dL (14.0-18.0) Hematocrit 42.9 % (42-52) Mean Corpuscular Volume 91.7 fL (80-100) Mean Corpuscular Hemoglobin 31.0 pg (25-34) Mean Corpuscular Hemoglobin Concent 33.8 g/dl (32-36) Platelet Count 188 K/uL (130-400) Mean Platelet Volume 9.9 fL (7.4-10.4) Neutrophils (%) (Auto) 72.8 % Lymphocytes (%) (Auto) 15.6 % Monocytes (%) (Auto) 6.7 % Eosinophils (%) (Auto) 4.4 % Basophils (%) (Auto) 0.3 % Neutrophils # (Auto) 6.33 K/uL (1.4-6.5) Lymphocytes # (Auto) 1.36 K/uL (1.2-3.4) Monocytes # (Auto) 0.58 K/uL (0.11-0.59) Eosinophils # (Auto) 0.38 K/uL (0-0.5) Basophils # (Auto) 0.03 K/uL (0-0.2) RDW Standard Deviation 55.7 fL (36.4-46.3) RDW Coefficient of Variation 16.8 % (11.5-14.5) Immature Granulocyte % (Auto) 0.2 % Immature Granulocyte # (Auto) 0.02 K/uL (0.00-0.02) Prothrombin Time 32.1 SECONDS (9.0-12.0) Prothromb Time International Ratio 2.9 (0.9-1.1) Activated Partial Thromboplast Time 33.5 SECONDS (21.0-31.0) Partial Thromboplastin Ratio 1.3 Anion Gap 8.0 mmol/L (3-11) Est Creatinine Clear Calc Drug Dose 56.0 ml/min Estimated GFR () 81.4 Estimated GFR (Non- 70.3 BUN/Creatinine Ratio 14.0 (10-20) Calcium Level 8.7 mg/dl (8.5-10.1) Total Bilirubin 1.4 mg/dl (0.2-1) Direct Bilirubin 0.3 mg/dl (0-0.2) Aspartate Amino Transf (AST/SGOT) 20 U/L (15-37) Alanine Aminotransferase (ALT/SGPT) 20 U/L (12-78) Alkaline Phosphatase 67 U/L (45-117) Total Creatine Kinase 87 U/L (39-308) Creatine Kinase MB 2.6 ng/ml (0.5-3.6) Creatine Kinase MB Ratio 3.0 (0-3.0) Pro-B-Type Natriuretic Peptide 1723 pg/ml (0-1800) Total Protein 8.0 gm/dl (6.4-8.2) Albumin 3.8 gm/dl (3.4-5.0) Lipase 168 U/L (73-393) Bedside Troponin I < 0.030 ng/ml (0-0.045) Laboratory results reviewed by me ECG Indication: SOB/dyspnea Rate (beats per minute): 73 Rhythm: other (ventricular paced) Findings: no acute ischemic change, no ectopy ED Course 1106: The patient was evaluated in room C1. A complete history and physical exam was performed. 1250: I reevaluated the patient and discussed the treatment plan with him. The patient was agreeable 1337: Discussed the patient's case with Dr. Kahn. The patient will be evaluated for further treatment and disposition. Medical Decision Triage Nursing notes reviewed. The patient's presentation and history were concerning for chest pain and SOB. Etiologies such as cardiac ischemia, aortic dissection, pulmonary embolism, pneumonia, pneumothorax, musculoskeletal, infections, gastrointestinal, as well as others were entertained. The patient was evaluated. He has an extensive coronary history. He notes exertional chest pain and shortness of breath. His symptoms are worsening. He did try nitroglycerin today. He is on Coumadin. Chest x-ray was unremarkable. ECG showed a paced rhythm. CBC, chemistry panel, LFTs, lipase, and reticulocyte markers were negative. BNP minimally elevated but consistent with age. Given his coronary history further evaluation and management in the hospital was deemed appropriate. [facility] The patient was evaluated in the Emergency Room for further management. Medication Reconcilliation Current Medication List: was personally reviewed by me Blood Pressure Screening Patient's blood pressure: Normal blood pressure Consults Time Called: [phone] Consulting Physician: Dr. Moya Returned Call: [phone] Discussed the patient's case with Dr. Kahn. The patient will be evaluated for further treatment and disposition. Impression Primary Impression: Precordial chest pain Additional Impression: Shortness of breath on exertion Scribe Attestation The scribe's documentation has been prepared under my direction and personally reviewed by me in its entirety. I confirm that the note above accurately reflects all work, treatment, procedures, and medical decision making performed by me. Departure Information Dispostion Being Evaluated By Hospitalist Referrals Raghu Murphy M.D. (PCP) Patient Instructions My [facility] Problem Qualifiers
[2017-02-14 13:19] VITALS: Ht 172.7 cm; Wt 78.0 kg
[2017-02-14] MEDS ORDERED: TRAMADOL HCL 50 MG TAB PO PRN (14:30)
[2017-02-14] MEDS ORDERED: ACETAMINOPHEN 325 MG TAB PO PRN (14:30)
[2017-02-14] MEDS ORDERED: ONDANSETRON INJ 2 MG/ML 2 ML VIAL IV PRN (14:30)
[2017-02-14] MEDS ORDERED: METHOCARBAMOL 500 MG TAB PO PRN (14:30)
[2017-02-14] MEDS ORDERED: NITROGLYCERIN 0.4 MG SL PER TAB CHARGE SL PRN (14:30)
[2017-02-14 14:58] VITALS: O2SAT 97
[2017-02-14] MEDS ORDERED: IV FLUIDS COMPLETED PRN (15:00)
[2017-02-14] MEDS ORDERED: INFLUENZA VACCINE HIGH DOSE 65+ 0.5 ML SYR IM. ONE (15:15)
[2017-02-14] MEDS ORDERED: INFLUENZA ADMINISTRATION CHARGE ONE (15:15)
--- NOTE | 2017-02-14 15:28 | History and Physical ---
History & Physical Date & Time of Service: Feb 14, 2017 at 15:10 Chief Complaint: SOB Primary Care Physician: Raghu Murphy M.D. History of Present Illness Source: patient, hospital records The patient is an 81-year-old male with a past medical history of CABG 2, coronary artery stent placement, pacemaker placement, and heart catheterization in September, who presents to the emergency department with dyspnea on exertion worsened over the past couple days while mowing lawns. He did take a nitroglycerin sublingual today without improvement, and thus his decided to bring him to the emergency department for assessment. He reports that he has been short of breath for a number of months, and recently underwent pulmonary function tests and echocardiogram, both of which he was given good reports on. Past Medical/Surgical History Medical Problems: (1) Abdominal pain Status: Chronic (2) Benign hypertension Status: Chronic (3) Colonoscopy Status: Resolved (4) Coronary artery bypass grafts x 2 Status: Resolved (5) Dyslipidemia Status: Chronic (6) History of TIA (transient ischemic attack) Status: Chronic (7) Hx of myocardial infarction Status: Chronic (8) Hyperlipidemia Status: Chronic (9) Hypertension Status: Chronic (10) Pacemaker Status: Chronic (11) Placement of stent Status: Resolved Surgical Problems: (1) History of coronary artery bypass graft x 2 Status: Chronic (2) Stented coronary artery Status: Chronic Family History Heart disease Hypertension Social History Smoking Status: Former Smoker Smokeless Tobacco Use: No Alcohol Use: none Drug Use: none Marital Status: Housing status: lives with family Occupational Status: retired Immunizations History of Influenza Vaccine: Yes Influenza Vaccine Date: Feb 25, 2012 History of Tetanus Vaccine?: Yes Tetanus Immunization Date: Aug 25, 2010 History of Pneumococcal: Yes Pneumococcal Date: Aug 26, 2011 History of Hepatitis B Vaccine: No Multi-Drug Resistant Organisms History of MDRO: Yes Allergies Coded Allergies: Adhesives (Verified Allergy, Intermediate, SKIN IRRITATION, 02/14/17) Niacin (Verified Adverse Reaction, Unknown, FLUSHING, 02/14/17) Oxycodone (Verified Adverse Reaction, Unknown, sick, GI, 02/14/17) Rosuvastatin (Verified Adverse Reaction, Unknown, CONSTIPATION, 02/14/17) Home Medications Scheduled Aspirin (Aspirin Chewable), 2 TABS PO QAM Atorvastatin (Lipitor), 40 MG PO QPM Carvedilol (Coreg), 6.25 MG PO BID Cholecalciferol (Vitamin D 1000 Unit), 1,000 INTER.UNIT PO QAM Coenzyme Q10 (Ubidecarenone) (Coq10), 300 MG PO QAM Cyclosporine (Ophth) (Restasis), 1 DROP OP BID Digoxin (Digoxin), 0.125 MG PO QAM Finasteride (Proscar), 5 MG PO QPM Fluticasone Propionate (Nasal) (Flonase Allergy Relief), 1 SPRAY ANA BID Furosemide (Lasix), 20 MG PO QAM Gabapentin (Neurontin), 100 MG PO TID Qaesddjlibu-Mzlsscshveo-Ert C- (Glucosamine Chondroitin), 1 TABLET PO BID Isosorbide Mononitrate Ext Rel (Imdur Ext Rel), 60 MG PO QAM Loratadine (Claritin), 10 MG PO QAM Losartan Potassium (Cozaar), 1 TAB PO QPM Methocarbamol (Robaxin), 500 MG PO QAM Multivitamin (Multivitamin), 1 TAB PO QAM Pantoprazole Sodium (Protonix), 40 MG PO QAM Polyethylene Glycol 3350 (Polyethylene Glycol 3350), 17 GM PO BID Temazepam (Temazepam), 7.5 MG PO HS Warfarin Sod (Jantoven), 5 MG PO 4XWK Warfarin Sodium (Coumadin), 2.5 MG PO 3XWK Scheduled PRN Nitroglycerin (Nitrostat), 0.4 MG UT UD PRN for Chest Pain Tramadol (Ultram), 50 MG PO Q12 PRN for Pain Review of Systems The patient denies palpitations, cough, lower extremity swelling, vision change , hearing change, sore throat, fevers, chills, sweats, weight change, nausea, vomiting, diarrhea or constipation, abdominal pain, pelvic pain, blood in urine or stool, dysuria, urinary frequency or urgency, lightheadedness , dizziness, headache, memory loss, rash, abnormal bruising or bleeding, imbalance, focal weakness, numbness or tingling in arms or legs, generalized arthralgias or myalgias, back or neck pain, or night sweats. The review of systems is otherwise negative other than for that already noted above, and at least 10 systems have been reviewed. Physical Exam Vital Signs Date Time Temp Pulse Resp B/P (MAP) Pulse Ox O2 Delivery O2 Flow Rate FiO2 02/14/17 14:58 71 24 140/76 97 02/14/17 14:30 71 24 140/76 97 Room Air 02/14/17 14:00 70 26 144/86 95 Room Air 02/14/17 13:30 70 25 144/83 95 Room Air 02/14/17 13:26 70 02/14/17 13:19 Room Air 02/14/17 13:00 76 26 141/102 96 Room Air 02/14/17 12:30 79 24 114/65 92 Room Air 02/14/17 12:00 70 24 120/76 94 Room Air 02/14/17 11:30 70 21 120/62 94 Room Air 02/14/17 11:30 95 Room Air 02/14/17 11:30 95 Room Air 02/14/17 11:18 74 02/14/17 11:05 95 Room Air 02/14/17 11:02 36.3 76 20 122/70 94 Room Air The patient is awake, well-developed and adequately nourished, alert and oriented 3, normocephalic and atraumatic, lying in bed and in no acute distress. HEENT--PERRL, EOMI, mucous membranes and oropharynx dry. Neck--supple, no JVD or bruits, thyroid normal, trachea midline, no adenopathy. Heart--normal S1 and S2, no extra beats, no murmurs, rubs or gallops. Lungs--crackles at the left base no respiratory distress, no accessory muscle use. Abdomen--normal bowel sounds and soft, nontender and nondistended, no hernias or masses, no organomegaly. Extremities--no cyanosis, clubbing or edema. There are good distal pulses b/l. Dermatologic--normal skin turgor, normal color, warm and dry, no abnormal lymph nodes, no rash. Neurologic--cranial nerves II through XII grossly intact, motor and sensory examination normal. Rheumatologic--normal range of motion, nontender, muscles and joints. Psychiatric--normal affect. Diagnostics Laboratory Results Results Past 24 Hours Test 02/14/17 11:30 02/14/17 11:39 Range/Units White Blood Count 8.70 4.8-10.8 K/uL Red Blood Count 4.68 4.7-6.1 M/uL Hemoglobin 14.5 14.0-18.0 g/dL Hematocrit 42.9 42-52 % Mean Corpuscular Volume 91.7 80-100 fL Mean Corpuscular Hemoglobin 31.0 25-34 pg Mean Corpuscular Hemoglobin Concent 33.8 32-36 g/dl Platelet Count 188 130-400 K/uL Mean Platelet Volume 9.9 7.4-10.4 fL Neutrophils (%) (Auto) 72.8 % Lymphocytes (%) (Auto) 15.6 % Monocytes (%) (Auto) 6.7 % Eosinophils (%) (Auto) 4.4 % Basophils (%) (Auto) 0.3 % Neutrophils # (Auto) 6.33 1.4-6.5 K/uL Lymphocytes # (Auto) 1.36 1.2-3.4 K/uL Monocytes # (Auto) 0.58 0.11-0.59 K/uL Eosinophils # (Auto) 0.38 0-0.5 K/uL Basophils # (Auto) 0.03 0-0.2 K/uL RDW Standard Deviation 55.7 36.4-46.3 fL RDW Coefficient of Variation 16.8 11.5-14.5 % Immature Granulocyte % (Auto) 0.2 % Immature Granulocyte # (Auto) 0.02 0.00-0.02 K/uL Prothrombin Time 32.1 9.0-12.0 SECONDS Prothromb Time International Ratio 2.9 0.9-1.1 Activated Partial Thromboplast Time 33.5 21.0-31.0 SECONDS Partial Thromboplastin Ratio 1.3 Sodium Level 140 136-145 mmol/L Potassium Level 4.1 3.5-5.1 mmol/L Chloride Level 106 98-107 mmol/L Carbon Dioxide Level 26 21-32 mmol/L Anion Gap 8.0 3-11 mmol/L Blood Urea Nitrogen 14 7-18 mg/dl Creatinine 1.00 0.60-1.40 mg/dl Est Creatinine Clear Calc Drug Dose 56.0 ml/min Estimated GFR () 81.4 Estimated GFR (Non- 70.3 BUN/Creatinine Ratio 14.0 10-20 Random Glucose 99 70-99 mg/dl Calcium Level 8.7 8.5-10.1 mg/dl Total Bilirubin 1.4 0.2-1 mg/dl Direct Bilirubin 0.3 0-0.2 mg/dl Aspartate Amino Transf (AST/SGOT) 20 15-37 U/L Alanine Aminotransferase (ALT/SGPT) 20 12-78 U/L Alkaline Phosphatase 67 45-117 U/L Total Creatine Kinase 87 39-308 U/L Creatine Kinase MB 2.6 0.5-3.6 ng/ml Creatine Kinase MB Ratio 3.0 0-3.0 Pro-B-Type Natriuretic Peptide 1723 0-1800 pg/ml Total Protein 8.0 6.4-8.2 gm/dl Albumin 3.8 3.4-5.0 gm/dl Lipase 168 73-393 U/L Bedside Troponin I < 0.030 0-0.045 ng/ml Diagnostic Radiology Patient Name: HORTENSIA HOLDER Unit Number: [id number] Dictated: 02/14/171143 Transcribed: 02/14/171143 ARG Printed Date/Time: [~ rep prt dt]/[~ rep prt tm] [~ rep ct labl] - [~ rep ct ivnm] [facility] [place] [place] [address] Dictated: 02/14/171143 Transcribed: 02/14/171143 ARG Printed Date/Time: [~ rep prt dt]/[~ rep prt tm] [~ rep ct labl] - [~ rep ct ivnm] CHEST ONE VIEW PORTABLE CLINICAL HISTORY: Difficult chest pain and shortness of breath COMPARISON STUDY: September 03, 2016 FINDINGS: The heart remains enlarged. There are postsurgical changes of a midline sternotomy. There is a left subclavian dual-chamber central venous pacemaker. There is mild interstitial thickening/edema similar to the preceding study. There is no focal pulmonary consolidation. There are no pleural effusions.[ IMPRESSION: Cardiomegaly and stable mild interstitial thickening/edema. No evidence of focal pulmonary consolidation. Electronically signed by: Paulo Webb M.D. 02/14/2017 11:45 AM Dictated Date/Time: 02/14/2017 11:44 AM The status of this report is Signed. Draft = Not yet reviewed or approved by Radiologist. Signed = Reviewed and approved by Radiologist. <AttendingPhy></AttendingPhy> <FamilyPhy>Raghu Murphy M.D.</FamilyPhy> < PrimaryPhy>Raghu Murphy M.D.</PrimaryPhy> <UnitNumber>[id number]</ UnitNumber> <VisitNumber>[id number]</VisitNumber> <PatientName>HORTENSIA HOLDER </PatientName> <DateOfBirth>1935</DateOfBirth> <Location>[facility]</Location> <ServiceDate>02/14/17</ServiceDate> <MNE>ESINDI</MNE> <OrderingPhy>Scooby Llamas MD</OrderingPhy> <OrderingPhyMNE>f rep ord dr rai</OrderingPhyMNE> < DictatingPhyMNE>f rep dict dr rai</DictatingPhyMNE> <CCListMNE>f rep ct elee</ CCListMNE> <AdmittingPhyMNE>f pt admit dr rai</AdmittingPhyMNE> <AttendingPhyMNE >f pt attend dr rai</AttendingPhyMNE> <ConsultingPhyMNE>f pt consult dr rai</ConsultingPhyMNE> <FamilyPhyMNE>f pt fam dr rai</FamilyPhyMNE> <OtherPhyMNE>f pt other dr rai</OtherPhyMNE> < PrimaryPhyMNE>f pt prim care dr rai</PrimaryPhyMNE> <ReferringPhyMNE>f pt referring dr rai</ReferringPhyMNE> EKG EKG is V paced at 73 beats minute, no change compared to 09/03/2016 Impression Assessment and Plan Dyspnea on exertion-- The patient will be admitted to telemetry for serial cardiac enzymes, and cardiac rhythm monitoring. Recently normal echocardiogram and pulmonary function tests. Continue aspirin 162 mg every morning, carvedilol 6.25 mg by mouth twice a day, digoxin 0.125 mg by mouth every morning, Imdur extended release 60 mg every morning, losartan potassium 50 mg every morning, furosemide 20 mg every morning and warfarin as per outpatient adjusted for serial INR. Hyperlipidemia-- Continue atorvastatin 40 mg every evening. Peripheral neuropathy-- continue gabapentin 100 mg by mouth 3 times a day GERD-- Continue pantoprazole 40 mg by mouth every morning. BPH-- Continue finasteride. Insomnia-- Continue temazepam 7.5 mg by mouth at bedtime Dry eye-- Continue Restasis 1 drop OP twice a day Level of Care Telemetry Advanced Directives Existing Advance Directive: Yes Existing Living Will: Yes Existing Power of Glass Sander: Yes Resuscitation Status FULL RESUSCITATION VTE Prophylaxis VTE Risk Assessment Done? Y/N: Yes Risk Level: Moderate Given or contraindicated: Warfarin (Coumadin)
[2017-02-14 15:30] VITALS: BP 141/74; PULSE 71; TEMP 36.8; O2SAT 98
[2017-02-14] MEDS: RESTASIS~ORDER AWAITING ACTION SCH (16:00)
[2017-02-14] MEDS ORDERED: WARFARIN SOD 2.5 MG TAB PO SCH (16:00)
--- NOTE | 2017-02-14 16:28 | CARDIOLOGY CONSULTATION ---
DATE OF CONSULTATION: 02/14/2017 REFERRING PHYSICIAN: Hospitalist service. REASON FOR CONSULTATION: Shortness of breath. HISTORY OF PRESENT ILLNESS: The patient is an 81-year-old male who is well known to our service and has been followed through our clinic for several years. He has a remote history of an inferior wall myocardial infarction in 1983 followed by coronary artery bypass surgery in 1983, receiving a BELLAMY to the LAD and a saphenous vein graft to the right coronary artery. He had an acute saphenous vein graft thrombosis in the setting of antiplatelet withdrawal for planned orthopedic procedure in 2009. He has an ischemic cardiomyopathy with an estimated left ventricular ejection fraction of 45%. He is status post dual chamber pacemaker with defibrillator for his ischemic cardiomyopathy as primary prevention. 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 In the past, he has had class II [employer] heart failure. He has paroxysmal and now persistent atrial fibrillation. The patient has had chronic dyspnea on exertion, shortness of breath and chronic angina for a quite some time. In September, he presented with dyspnea on exertion, was admitted to [facility] and then eventually underwent cardiac catheterization at [facility], where a 2/2 bypass grafts were patent; however, he had significant [place] vessel disease and he was deemed medical management only. He had an echocardiogram in January that showed his estimated left ventricular ejection fraction to be 45%-50%. He had at least mild to moderate mitral regurgitation and moderate aortic stenosis. He also recently had a pulmonary evaluation done through [facility] and some of the results are pending, but according to note, the oral and maxillofacial pathologist felt that his symptoms were more related to his heart disease. Recently, the patient has had several episodes of shortness of breath while working outside in his yard. 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 After several minutes, he was able to continue with that activity. Today, he had a similar type of event with chest pain. He took 1 single sublingual nitroglycerin and came to the hospital. By the time he reached the hospital, his symptoms had completely resolved. He has no cardiac complaints at present. ALLERGIES: ADHESIVES, NIACIN, OXYCODONE AND ROSUVASTATIN. PAST MEDICAL HISTORY: As outlined in the history of chief complaint. In addition, he has a history of benign prostatic hypertrophy and osteoporosis. He has also been treated for dyslipidemia and hypertension. He has sleep apnea. SOCIAL HISTORY: He is a nonsmoker. He lives with his . FAMILY MEDICAL HISTORY: Noncontributory. REVIEW OF SYSTEMS: A 10-point review of systems is otherwise negative. PHYSICAL EXAMINATION: GENERAL: He is alert and oriented in no acute distress. VITAL SIGNS: Blood pressure 140/70 and pulse is regular at 70 beats per minute. He is afebrile. HEENT: He is normocephalic. Pupils are equal and reactive to light. Extraocular muscles are intact bilaterally. NECK: The neck veins are flat. Carotids have good upstrokes bilaterally without bruits. Thyroid is nonpalpable. RESPIRATORY: Breath sounds equal bilaterally and clear to auscultation. CARDIOVASCULAR: Heart has a regular rhythm. Normal S1 and S2. There is a holosystolic murmur at the apex of the heart radiating to the axilla. No S3. GASTROINTESTINAL: Abdomen is soft and nontender without organomegaly. EXTREMITIES: Free of edema, digit clubbing, or cyanosis. NEUROLOGIC: Grossly intact. SKIN: Warm to touch. LYMPH NODES: Negative to palpation. IMPRESSION: 1. Severe [place] vessel coronary artery disease with patent bypass grafts by cardiac catheterization in September 2016. 2. Chronic, but stable angina. 3. Ischemic cardiomyopathy. 4. 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 5. Status post permanent pacemaker. 6. Chronic atrial fibrillation. RECOMMENDATIONS: I had a long discussion with the patient and his and daughter, who were in the room. I indicated to him that he would have more episodes of shortness of breath and chest pain in the future, especially if he continues to maintain the same activity level he did years ago. I anticipate no additional cardiac testing this admission. You can continue with the cardiac enzymes. As mentioned above, he just had an echocardiogram several weeks ago and I do not believe repeating this study would provide any additional information.
[2017-02-14 19:56] VITALS: BP 158/80; PULSE 75; TEMP 36.7; O2SAT 92
[2017-02-14] MEDS ORDERED: LOSARTAN POTASSIUM 25 MG TAB PO SCH (21:00)
[2017-02-14] MEDS: FLUTICASONE PROPIONATE NA SPR 16 GM BTL NAE SCH (21:09)
[2017-02-14] MEDS: CARVEDILOL 6.25 MG TAB PO SCH (21:10)
[2017-02-14] MEDS: LOSARTAN POTASSIUM 25 MG TAB PO SCH (21:10)
[2017-02-14] MEDS: POLYETHYLENE (MIRALAX) 17 GM PACK PO SCH (21:11)
[2017-02-14] MEDS: GABAPENTIN 100 MG CAP PO SCH (21:11)
[2017-02-14] MEDS: FINASTERIDE 5 MG TAB PO SCH (21:12)
[2017-02-14] MEDS: ATORVASTATIN 40 MG TAB PO SCH (21:12)
[2017-02-14] MEDS: TEMAZEPAM 7.5 MG CAP PO SCH (21:15)
[2017-02-14 22:52] LABS: CKMB/CK RATIO 3.5 (0-3.0)
[2017-02-15] VITALS (7 sets, daily range): BP systolic 100–137; BP diastolic 53–74; PULSE 69–74; TEMP 36.5–37.5; O2SAT 91–98
[2017-02-15 04:14] LABS: BASO % 0.4 %; BASO ABS # 0.04 K/uL (0-0.2); COMPLETE YES; EOS % 5.5 %; HEMATOCRIT 41.2 % (42-52); IG% 0.2 %; LYMPH % 21.4 %; LYMPH ABS # 2.02 K/uL (1.2-3.4); MEAN CELL VOLUME 91.6 fL (80-100); MEAN CORPUSCULAR HEMOGLOBIN 29.8 pg (25-34); MEAN CORPUSCULAR HGB CONC 32.5 g/dl (32-36); MEAN PLATELET VOLUME 9.6 fL (7.4-10.4); MONO % 6.9 %; NEUT % 65.6 %; PLATELET COUNT 163 K/uL (130-400); WHITE BLOOD COUNT 9.42 K/uL (4.8-10.8)
[2017-02-15 04:26] LABS: POTASSIUM 4.3 mmol/L (3.5-5.1)
[2017-02-15 04:29] LABS: CALCIUM 8.6 mg/dl (8.5-10.1); CREATININE 1.2 mg/dl (0.60-1.40)
[2017-02-15 04:31] LABS: INR 2.6 (0.9-1.1); PARTIAL THROMBOPLASTIN RATIO 1.3; PROTHROMBIN TIME (PATIENT) 28.8 SECONDS (9.0-12.0)
[2017-02-15 04:34] LABS: CKMB/CK RATIO 2.6 (0-3.0)
[2017-02-15] MEDS: RESTASIS~ORDER AWAITING ACTION SCH ×2 (08:00)
[2017-02-15] MEDS: CARVEDILOL 6.25 MG TAB PO SCH ×2 (08:21→20:51)
[2017-02-15] MEDS: MULTIVITAMIN TAB PO SCH (08:21)
[2017-02-15] MEDS: FLUTICASONE PROPIONATE NA SPR 16 GM BTL NAE SCH ×2 (08:21→20:56)
[2017-02-15] MEDS: GABAPENTIN 100 MG CAP PO SCH ×2 (08:21→20:55)
[2017-02-15] MEDS: ASPIRIN 81 MG ECTAB PO SCH (08:22)
[2017-02-15] MEDS: PANTOprazole SOD 40 MG TAB PO SCH (08:22)
[2017-02-15] MEDS: LORATADINE 10 MG TAB PO SCH (08:22)
[2017-02-15] MEDS: FUROSEMIDE 20 MG TAB PO SCH (08:22)
[2017-02-15] MEDS: ISOSORBIDE MONONITRATE 60 MG TABCR PO SCH (08:23)
[2017-02-15] MEDS: POLYETHYLENE (MIRALAX) 17 GM PACK PO SCH ×2 (08:23→20:56)
[2017-02-15] MEDS: CHOLECALCIFEROL 1000 INTER.UNIT TAB PO SCH (08:23)
[2017-02-15] MEDS ORDERED: COENZYME Q10 300 MG PO SCH (09:00)
--- NOTE | 2017-02-15 10:42 | PROGRESS NOTE ---
DATE: 02/15/2017 FOLLOWUP VISIT SUBJECTIVE: The patient is an 81-year-old male with a history of severe [place] coronary artery disease and patent bypass grafts by cardiac catheterization in September 2016, ischemic cardiomyopathy, mixed valvular heart disease with moderate aortic stenosis and moderate mitral regurgitation, chronic atrial fibrillation and a permanent pacemaker. He was admitted with increased shortness of breath after working in his yard. Yesterday, I started to titrate his ARB as I feel that this may improve some of his symptoms. He received a dose of 50 mg yesterday of losartan and I will increase that today to 50 mg in the morning and 25 mg tonight. I encouraged him to ambulate today. OBJECTIVE: VITAL SIGNS: Blood pressure is 137/70. Pulse is irregular at 71. He is afebrile. GENERAL: He is alert and oriented in no acute distress. HEENT: He is normocephalic. He wears corrective lenses. Mucous membranes are moist. NECK: The neck veins are flat. Carotids have good upstrokes bilaterally without bruits. Thyroid is nonpalpable. RESPIRATORY: Breath sounds equal bilaterally and clear to auscultation. CARDIOVASCULAR: Heart has a regular rhythm. Normal S1 and S2. No S3 or S4. No cardiac rubs or murmurs. GASTROINTESTINAL: Abdomen is soft and nontender without organomegaly. EXTREMITIES: Free of edema, digit clubbing, or cyanosis. NEUROLOGIC: Grossly intact. SKIN: Warm to touch. LYMPH NODES: Negative to palpation. IMPRESSION: 1. Severe [place] vessel coronary artery disease with patent bypass grafts by cardiac catheterization in September 2016. 2. Chronic, but stable angina. 3. Ischemic cardiomyopathy. 4. 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 5. Status post permanent pacemaker. 6. Chronic atrial fibrillation. RECOMMENDATIONS: As outlined in my consult, I do not believe any additional cardiac testing is indicated. I think we should increase his ARB as this would give him benefit with his mixed valvular pathology. I encouraged him to walk within the unit today. If all goes well, we may discharge him tomorrow. DEMETRIUSD
[2017-02-15] MEDS ORDERED: DIGOXIN 0.125 MG TAB PO SCH (16:00)
--- NOTE | 2017-02-15 16:11 | Progress Note ---
Subjective Date of Service: Feb 15, 2017. Subjective Pt evaluation today including: conversation w/ patient, conversation w/ family ( at bedside), physical exam, chart review, lab review, review of studies ( cxr), review of inpatient medication list Pain: no chest pain, no abdominal pain PO Intake: normal Voiding: no voiding problems tele stable (paced; and 1 run of NSVT) he denies any chest pain denies any dyspnea at rest or orthopnea Problem List Medical Problems: (1) Elevated troponin Status: Acute (2) Hypoxia Status: Acute (3) Precordial chest pain Status: Acute (4) Pulmonary edema Status: Acute (5) Shortness of breath on exertion Status: Acute Review of Systems Constitutional: No fever Respiratory: + cough (minimal - chronic), + dyspnea on exertion, No dyspnea at rest Cardiac: No chest pain, No orthopnea, No PND, No edema Abdomen: No pain Objective Vital Signs Date Time Temp Pulse Resp B/P (MAP) Pulse Ox O2 Delivery O2 Flow Rate FiO2 02/15/17 15:22 36.5 73 16 104/56 (72) 95 Room Air 02/15/17 12:00 Room Air 02/15/17 11:59 37.5 72 20 100/56 (71) 98 Nasal Cannula 2.0 02/15/17 08:00 Room Air 02/15/17 07:24 36.6 71 20 137/70 (92) 95 Nasal Cannula 2.0 02/15/17 04:00 Room Air 02/15/17 04:00 36.5 72 20 121/74 (90) 93 Nasal Cannula 2.0 02/15/17 00:30 36.9 70 20 124/59 (80) 95 Room Air 02/14/17 23:59 Room Air 02/14/17 20:00 Room Air 02/14/17 19:56 36.7 75 18 158/80 (106) 92 Room Air Physical Exam General Appearance: no apparent distress ENT: pharynx normal Neck: no JVD Respiratory/Chest: no respiratory distress, no accessory muscle use, + rales ( "Dry" - right base, otherwise CTA b/l ) Cardiovascular: regular rate, rhythm, no gallop, + systolic murmur (2-3/6 holosystolic murmur LLSB w/ radiation to axillae) Abdomen: normal bowel sounds, non tender, soft, no organomegaly Extremities: no pedal edema Neurologic/Psychiatric: alert, oriented x 3 Laboratory Results Last 24 Hours Test 02/14/17 20:05 02/14/17 22:17 02/15/17 03:55 02/15/17 09:43 Bedside Glucose 105 mg/dl Total Creatine Kinase 66 U/L 57 U/L Creatine Kinase MB 2.3 ng/ml 1.5 ng/ml Creatine Kinase MB Ratio 3.5 2.6 Troponin I 0.161 ng/ml 0.140 ng/ml 0.143 ng/ml White Blood Count 9.42 K/uL Red Blood Count 4.50 M/uL Hemoglobin 13.4 g/dL Hematocrit 41.2 % Mean Corpuscular Volume 91.6 fL Mean Corpuscular Hemoglobin 29.8 pg Mean Corpuscular Hemoglobin Concent 32.5 g/dl Platelet Count 163 K/uL Mean Platelet Volume 9.6 fL Neutrophils (%) (Auto) 65.6 % Lymphocytes (%) (Auto) 21.4 % Monocytes (%) (Auto) 6.9 % Eosinophils (%) (Auto) 5.5 % Basophils (%) (Auto) 0.4 % Neutrophils # (Auto) 6.17 K/uL Lymphocytes # (Auto) 2.02 K/uL Monocytes # (Auto) 0.65 K/uL Eosinophils # (Auto) 0.52 K/uL Basophils # (Auto) 0.04 K/uL RDW Standard Deviation 55.2 fL RDW Coefficient of Variation 16.7 % Immature Granulocyte % (Auto) 0.2 % Immature Granulocyte # (Auto) 0.02 K/uL Prothrombin Time 28.8 SECONDS Prothromb Time International Ratio 2.6 Activated Partial Thromboplast Time 34.3 SECONDS Partial Thromboplastin Ratio 1.3 Sodium Level 140 mmol/L Potassium Level 4.3 mmol/L Chloride Level 106 mmol/L Carbon Dioxide Level 27 mmol/L Anion Gap 7.0 mmol/L Blood Urea Nitrogen 18 mg/dl Creatinine 1.20 mg/dl Est Creatinine Clear Calc Drug Dose 46.7 ml/min Estimated GFR () 65.3 Estimated GFR (Non- 56.4 BUN/Creatinine Ratio 15.0 Random Glucose 101 mg/dl Calcium Level 8.6 mg/dl Magnesium Level 2.0 mg/dl Assessment and Plan 81yo male: 1. Dyspnea on exertion - has had extensive cardiac and pulmonary work-up over the last 6 months by report. Had heart cath in [place] earlier this year and grafts were patent. ECHO with mild-moderate CHF and mild pulmonary HTN but patient appears compensated from a CHF standpoint. CXR w/ interstitial infiltrates. CT chest in 2011 showed possible pulmonary fibrosis. PFTs by report were apparently wnl but I don't have those records. Will repeat the chest CT, noncontrast, to r/o ILD/PF. Plan for 2-step O2 test tomorrow. Appreciate cardiology assistance and recommendations. 2. +troponin - likely myocardial demand ischemia; cannot rule out true NSTEMI, however. Regardless the troponin elevation was minimal. 3. known CAD - continue aspirin, BB, statin, imdur. 4. chronic systolic CHF - compensated. Cont BB, ARB. 5. a. fib - INR therapeutic on coumadin. He is paced on monitor. Cont BB. 6. BPH - continue finasteride. 7. DVT proph - coumadin. updated anticipate d/c tomorrow Discharge planning: home
--- NOTE | 2017-02-15 17:20 | DIAGNOSTIC IMAGING REPORT ---
CT SCAN OF THE CHEST WITHOUT IV CONTRAST CLINICAL HISTORY: Dyspnea. Hypoxia. COMPARISON STUDY: Chest CT dated 06/06/11. Chest x-ray dated 02/14/2017. TECHNIQUE: CT scan of the thorax was performed from the thoracic inlet to the upper abdomen. Images are reviewed in the axial, sagittal, and coronal planes. IV contrast was not administered for this examination. A dose lowering technique was utilized adhering to the principles of ALARA. CT DOSE: 333.27 mGy.cm FINDINGS: Thyroid: Imaged portions of the thyroid gland are normal in size and heterogeneous in attenuation. Thoracic aorta: There is advanced atherosclerotic calcification of the thoracic aorta, which is normal in caliber and demonstrates standard 3-vessel arch anatomy. Heart: The patient is status post midline sternotomy. A 2-lead cardiac pacemaker is present in the left chest wall. The heart is enlarged and without pericardial effusion. The coronary arteries and aortic valve leaflets are densely calcified. The main pulmonary arteries are markedly dilated suggesting pulmonary artery hypertension. Lungs and pleural spaces: Emphysema and apical scarring are identified. There is diffuse subpleural reticulation with a lower lobe predominance. Foci of scarring/atelectasis are present the lung bases. No airspace consolidation is seen typical for pneumonia and there is no pleural effusion. The trachea and central airways are clear. There is an 11 mm irregular nodule in the right middle lobe seen on image #185. This abuts the pleural surface and has not significantly changed from 2012. Foci of air trapping are present in the left upper lobe. No traction bronchiectasis is identified. There is no honeycombing. There are scattered calcified granulomas. Mediastinum: There are numerous mildly enlarged mediastinal lymph nodes. A high right paratracheal node on image #55 measures 1.3 cm in short axis. A precarinal node on image #110 measures 1.7 cm in short axis. A subcarinal node on image #135 measures 2.2 x 3.9 cm. These are only modestly increased in size from the 2012 examination. Joy: Not well assessed without IV contrast. Axillae: There is no axillary lymphadenopathy. Upper abdomen: Partially visualized upper abdominal viscera is within normal limits. Skeletal structures: The skeletal structures are osteopenic. Degenerative change is present in the shoulders and thoracic spine. There are mild compression deformities of T4, T9, T 11, T12, and L1. No lytic or blastic bony lesions are seen. IMPRESSION: 1. Emphysema with probable superimposed interstitial lung disease which has progressed as compared to the 2012 examination. 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 Pulmonology follow-up is recommended. 2. No airspace consolidation or pleural effusion is seen. 3. Cardiomegaly with evidence of pulmonary artery hypertension. 4. There is an irregular 11 mm right middle lobe pulmonary nodule, not significantly changed from 2012. Differences in reported size are likely related to measurement technique. This is pathologically indeterminant; however, the long-term stability suggests a benign etiology. 5. No new pulmonary nodule is seen. 6. Mediastinal lymphadenopathy is identified. These nodes have only modestly increased in size as compared to 2012 and are likely related to chronic lung disease. 7. Additional findings as above. Electronically signed by: Glen Noriega M.D. 02/15/2017 5:19 PM Dictated Date/Time: 02/15/2017 5:10 PM
[2017-02-15] MEDS: TEMAZEPAM 7.5 MG CAP PO SCH (20:51)
[2017-02-15] MEDS: LOSARTAN POTASSIUM 25 MG TAB PO SCH (20:54)
[2017-02-15] MEDS: ATORVASTATIN 40 MG TAB PO SCH (20:54)
[2017-02-15] MEDS: FINASTERIDE 5 MG TAB PO SCH (20:55)
[2017-02-15] MEDS ORDERED: WARFARIN SOD 5 MG TAB PO SCH (21:00)
[2017-02-15] MEDS ORDERED: LOSARTAN POTASSIUM 25 MG TAB PO SCH (21:00)
[2017-02-16 03:35] VITALS: BP 117/58; PULSE 73; TEMP 36.6; O2SAT 94
[2017-02-16 07:02] LABS: PROTHROMBIN TIME (PATIENT) 21.8 SECONDS (9.0-12.0)
[2017-02-16 07:24] LABS: BUN/CREATININE RATIO 20.6 (10-20); CALCIUM 8.7 mg/dl (8.5-10.1); POTASSIUM 4.2 mmol/L (3.5-5.1)
[2017-02-16 07:32] VITALS: BP 136/65; PULSE 70; TEMP 36.3; O2SAT 94
[2017-02-16] MEDS: RESTASIS~ORDER AWAITING ACTION SCH ×2 (08:00)
[2017-02-16] MEDS: CHOLECALCIFEROL 1000 INTER.UNIT TAB PO SCH (08:03)
[2017-02-16] MEDS: POLYETHYLENE (MIRALAX) 17 GM PACK PO SCH (08:03)
[2017-02-16] MEDS: MULTIVITAMIN TAB PO SCH (08:03)
[2017-02-16] MEDS: PANTOprazole SOD 40 MG TAB PO SCH (08:03)
[2017-02-16] MEDS: CARVEDILOL 6.25 MG TAB PO SCH (08:03)
[2017-02-16] MEDS: GABAPENTIN 100 MG CAP PO SCH (08:03)
[2017-02-16] MEDS: LORATADINE 10 MG TAB PO SCH (08:03)
[2017-02-16] MEDS: ASPIRIN 81 MG ECTAB PO SCH (08:04)
[2017-02-16] MEDS: FUROSEMIDE 20 MG TAB PO SCH (08:04)
[2017-02-16] MEDS: ISOSORBIDE MONONITRATE 60 MG TABCR PO SCH (08:04)
[2017-02-16] MEDS: FLUTICASONE PROPIONATE NA SPR 16 GM BTL NAE SCH (08:04)
[2017-02-16] MEDS ORDERED: LOSA50TA6 PO (10:44)
--- NOTE | 2017-02-16 10:51 | Discharge Instructions ---
Discharge Instructions Date of Service Feb 16, 2017. Admission Reason for Admission: Shortness of Breath with activity Discharge Discharge Diagnosis / Problem: Shortness of breath, possibly due to lung disease Discharge Goals Goal(s): Learn about illness, Diagnostic testing, Therapeutic intervention Activity Recommendations Activity Limitations: as noted below avoid heavy exertional activities that worsen your breathing ok to take light walks but stop when you feel short of breath avoid heavy cardroom hand, yardwork, etc. that make your breathing worse . Instructions / Follow-Up Instructions / Follow-Up From Dr. Hall: 1. Your shortness of breath with activities may be due in part to your heart troubles WELL lung problems. 2. Your CAT scan of the lungs in 2011 appeared to show the beginnings of a condition called interstitial lung disease. Your CAT scan done this admission shows that the possible interstitial lung disease may be getting worse. Please follow-up with the inspector materials and processes (lung specialist) later this month to determine if you have this condition. Your CAT scan will be forwarded to the lung specialist for their review. This lung condition can cause chronic cough, shortness of breath, weight loss, etc. 3. Your walking oxygen test did NOT show any need for home oxygen at this time. 4. Dr. Landa recommends that you increase your losartan to 50mg twice daily. Start this TODAY. New prescription provided. 5. Your INR today is 2. Please resume your normal coumadin schedule. Follow- up with your coumadin provider as scheduled. 6. Follow-up appointments - * see the inspector materials and processes at [facility] later this month as scheduled * see Dr. Landa or one of his associates at the cardiology office within 1-2 weeks * see your primary care doctor within 1 week 7. Return to [facility] if - * you experience chest pain not responding to your nitroglycerin * you have shortness of breath that is worsening/not improving * any other concerns Current Hospital Diet Patient's current hospital diet: AHA Diet (Heart Healthy) Discharge Diet Recommended Diet: AHA Diet (Heart Healthy) Fluid Restriction: 1500 ml (6 cups) Procedures Procedures Performed: CAT scan of the lungs showing possible "interstitial lung disease" Pending Studies Studies pending at discharge: no Medical Emergencies . Who to Call and When: Medical Emergencies: If at any time you feel your situation is an emergency, please call 911 immediately. . Non-Emergent Contact Non-Emergency issues call your: Primary Care Provider Call Non-Emergent contact if: temperature is above 100.5, your pain is not controlled, your pain is worsening, your pain is unusual for you, your pain is concerning you, you have any medication questions . . "Provider Documentation" section prepared by Raghu Hall. . VTE Core Measure Inpt VTE Proph given/why not?: Warfarin (Coumadin)
--- NOTE | 2017-02-16 11:12 | CARDIOLOGY CONSULTATION ---
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 He was admitted with shortness of breath. We have titrated his dose of losartan up to 100 mg daily. He was actually walking through the halls this morning and feels 100% better. His oxygen levels have improved and he will not need home oxygen. He did have a CT of the chest during this admission that suggests interstitial lung disease which may be progressing with a diagnosis of pulmonary fibrosis that may be contributing to his shortness of breath. I do have a copy of the CD that I will take to [facility] with me and provide it to our pulmonary department as he has a followup there later this month. OBJECTIVE: GENERAL: He is alert and oriented. VITAL SIGNS: Blood pressure is 130/70, pulse is irregular at 70 beats per minute. He is afebrile. HEAD, EYES, EARS, NOSE, AND THROAT: He is normocephalic. Pupils are equal and reactive to light. Extraocular muscles are intact bilaterally. NECK: The neck veins are flat. Carotids have good upstrokes bilaterally without bruits. Thyroid is nonpalpable. RESPIRATORY: Breath sounds are equal bilaterally and clear to auscultation. CARDIOVASCULAR: Heart has an irregular rhythm. There is a harsh systolic murmur along the left sternal border to the apex of the heart. GASTROINTESTINAL: Abdomen is soft, nontender without organomegaly. EXTREMITIES: Free of edema, digit clubbing, or cyanosis. NEUROLOGIC: Grossly intact. SKIN: Warm to touch. LYMPH NODES: Negative to palpation. IMPRESSION: 1. Severe zuni vessel coronary artery disease with patent bypass grafts by cardiac catheterization September 2016. 2. Chronic but stable angina. 3. Ischemic cardiomyopathy. 4. 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 5. Status post permanent pacemaker. 6. Chronic atrial fibrillation. RECOMMENDATIONS: The patient is ready for discharge today. He does have a follow-up appointment with [facility] in 1-2 weeks which he will keep. He will also have his device checked at that time. He also has a followup with the pulmonary department and as mentioned above, I will make the CD available to them from this admission of his chest.
[2017-02-16 11:15] VITALS: BP 105/56; PULSE 71; TEMP 36.7; O2SAT 94
[2017-02-16 11:27] VITALS: BP 136/65; PULSE 70; TEMP 36.3; O2SAT 94
--- NOTE | 2017-02-17 11:31 | Discharge Summary ---
Discharge Summary Date of Service Feb 17, 2017. Discharge Summary Admission Date: Feb 14, 2017 at 14:18 Discharge Date: Feb 16, 2017 Discharge Disposition: Home Principal Diagnosis: dyspnea on exertion - possibly due to interstitial lung disease Problems/Secondary Diagnoses: 1. CAD 2. h/o CABG 3. h/o atrial fibrillation 4. chronic systolic CHF with EF 45% 5. moderate-severe mitral regurgitation 6. BPH 7. mild aortic stenosis 8. mild pulmonary HTN 9. hyperlipidemia 10. mildly positive troponin, likely myocardial demand ischemia Immunizations: Have You Had Influenza Vaccine: Yes Influenza Vaccine Date: Feb 25, 2012 History of Tetanus Vaccine?: Yes Tetanus Immunization Date: Aug 25, 2010 History of Pneumococcal: Yes Pneumococcal Date: Aug 26, 2011 History of Hepatitis B Vaccine: No Procedures: 1. CT chest, non-contrast: IMPRESSION: 1. Emphysema with probable superimposed interstitial lung disease which has progressed as compared to the 2012 examination. 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 Pulmonology follow-up is recommended. 2. No airspace consolidation or pleural effusion is seen. 3. Cardiomegaly with evidence of pulmonary artery hypertension. 4. There is an irregular 11 mm right middle lobe pulmonary nodule, not significantly changed from 2012. Differences in reported size are likely related to measurement technique. This is pathologically indeterminant; however, the long-term stability suggests a benign etiology. 5. No new pulmonary nodule is seen. 6. Mediastinal lymphadenopathy is identified. These nodes have only modestly increased in size as compared to 2012 and are likely related to chronic lung disease. 2. two-step oxygen test - PASSED; ambulatory oxygen NOT needed Consultations: cardiology - Israel Landa, DO Medication Reconciliation Changed Medications: Losartan Potassium (Cozaar) 50 Mg Tab 50 MG PO BID, #60 TAB 2 Refills (Changed from: Losartan Potassium (Cozaar) 25 Mg Tab 1 Tab PO QPM) Continued Medications: Aspirin (Aspirin Chewable) 81 Mg Chew 2 TABS PO QAM Atorvastatin (Lipitor) 40 Mg Tab 40 MG PO QPM Carvedilol (Coreg) 6.25 Mg Tab 6.25 MG PO BID, TAB Cholecalciferol (Vitamin D 1000 Unit) 1,000 Unit Cap 1000 INTER.UNIT PO QAM Coenzyme Q10 (Ubidecarenone) (Coq10) 200 Mg Cap 300 MG PO QAM Cyclosporine (Ophth) (Restasis) 0.05 % Emu 1 DROP OP BID, BTL Digoxin (Digoxin) 0.125 Mg Tab 0.125 MG PO QAM Finasteride (Proscar) 5 Mg Tab 5 MG PO QPM Fluticasone Propionate (Nasal) (Flonase Allergy Relief) 50 Mcg/Act Spr 1 SPRAY ANA BID Furosemide (Lasix) 20 Mg Tab 20 MG PO QAM, TAB Gabapentin (Neurontin) 100 Mg Cap 100 MG PO TID Mcayebowjtl-Lqhrkqjshed-Vak C- (Glucosamine Chondroitin) 1 Tab Tab 1 TABLET PO BID Isosorbide Mononitrate Ext Rel (Imdur Ext Rel) 60 Mg Ertab 60 MG PO QAM Loratadine (Claritin) 10 Mg Tab 10 MG PO QAM Methocarbamol (Robaxin) 500 Mg Tab 500 MG PO QAM 1-3 TIMES DAILY Multivitamin (Multivitamin) Tab 1 TAB PO QAM Nitroglycerin (Nitrostat) 0.4 Mg Tab 0.4 MG UT UD PRN for Chest Pain Pantoprazole Sodium (Protonix) 40 Mg Tab 40 MG PO QAM, TAB Polyethylene Glycol 3350 (Polyethylene Glycol 3350) 1 Pow 17 GM PO BID Temazepam (Temazepam) 7.5 Mg Cap 7.5 MG PO HS Tramadol (Ultram) 50 Mg Tab 50 MG PO Q12 PRN for Pain, TAB Warfarin Sod (Jantoven) 5 Mg Tab 5 MG PO 4XWK, TAB SUN,TU,THURS,SAT Warfarin Sodium (Coumadin) 5 Mg Tab 2.5 MG PO 3XWK MON,WED,FRI Discharge Exam Physical Exam: General Appearance: no apparent distress ENT: pharynx normal Neck: no JVD Respiratory/Chest: no respiratory distress, no accessory muscle use, + rales (fine, right base) Cardiovascular: regular rate, rhythm, no gallop, + systolic murmur (3/6 LLSB with radiation to axillae ) Abdomen / GI: normal bowel sounds, non tender, soft, no organomegaly Extremities: no pedal edema Neurologic/Psychiatric: alert, oriented x 3 Skin: + pertinent finding (no clubbing ) Hospital Course HISTORY OF PRESENT ILLNESS: The patient is an 81-year-old male with a past medical history of CABG 2, coronary artery stent placement, pacemaker placement, and heart catheterization in September, who presents to the emergency department with dyspnea on exertion worsened over the past couple days while mowing lawns. He did take a nitroglycerin sublingual today without improvement, and thus his decided to bring him to the emergency department for assessment. He reports that he has been short of breath for a number of months, and recently underwent pulmonary function tests and echocardiogram as an outpatient to further investigate his symptoms. HOSPITAL COURSE: 1. dyspnea on exertion - has had extensive cardiac and pulmonary work-up over the last 6 months by report. Had heart cath in [place] earlier this year and grafts were patent. ECHO with mild-moderate systolic CHF and mild pulmonary HTN but patient appeared compensated from a CHF standpoint during this stay. CXR this admission showed interstitial infiltrates. CT chest in 2011 showed possible pulmonary fibrosis. CT chest, noncontrast, was repeated this admission showing findings concerning for progressive interstitial lung disease. This may be the cause of his worsening dyspnea on exertion and chronic cough. He has follow-up with [facility] later this month. The CT chest was placed on CD-ROM which will be delivered to the pulmonary division at [facility]. 2. +troponin - likely myocardial demand ischemia. He had no ischemic symptoms while hospitalized. 3. known CAD - continue aspirin, BB, statin, imdur. His ARB was titrated to 50mg BID during this stay. He was seen in consult by Dr. Israel Landa, [facility], who recommended the titration of the losartan. [facility] will see the patient in 1-2 weeks following discharge. 4. chronic systolic CHF - remained compensated while hospitalized. 5. a. fib - INR was therapeutic on coumadin while hospitalized. No changes were made to his coumadin regimen. Total Time Spent: Greater than 30 minutes This includes examination of the patient, discharge planning, medication reconciliation, and communication with other providers. Discharge Instructions Please refer to the electronic Patient Visit Report (Discharge Instructions) for additional information. Follow-Up 1. see Dr. Murphy, PCP, within 1 week 2. see [facility] as scheduled in late February 3. see [facility] within 1-2 weeks Additional Copies To Raghu Murphy M.D.; Israel Landa, DO
== END 2017-02-16 12:15 | disposition home or self-care (01) ==
LOC: C.EDB 10:58 → C.2E 14:18 → ENRESERV 14:36
PROVIDERS: ADMIT Hospitalist; ATTEND Internal Medicine
DX: R06.00 Dyspnea, unspecified (principal); I25.10 Atherosclerotic heart disease of native coronary artery without angina pectoris; Z95.1 Presence of aortocoronary bypass graft; I50.22 Chronic systolic (congestive) heart failure; I11.0 Hypertensive heart disease with heart failure; I34.0 Nonrheumatic mitral (valve) insufficiency; I48.2 Chronic atrial fibrillation; I25.5 Ischemic cardiomyopathy; N40.0 Benign prostatic hyperplasia without lower urinary tract symptoms; I35.0 Nonrheumatic aortic (valve) stenosis; I27.20 Pulmonary hypertension, unspecified; E78.5 Hyperlipidemia, unspecified; Z95.0 Presence of cardiac pacemaker; I25.2 Old myocardial infarction; Z79.82 Long term (current) use of aspirin; Z79.899 Other long term (current) drug therapy; Z79.01 Long term (current) use of anticoagulants; Z88.5 Allergy status to narcotic agent; Z86.73 Personal history of transient ischemic attack (TIA), and cerebral infarction without residual deficits; Z87.891 Personal history of nicotine dependence; Z82.49 Family history of ischemic heart disease and other diseases of the circulatory system

== ENCOUNTER → 2017-04-09 | Day surgery (SDC) | payer BC ==
[2017-03-13 13:11] VITALS: Ht 172.7 cm; Wt 75.0 kg
[~2017-04-09] VITALS: Ht 172.7 cm; Wt 75.0 kg
[~2017-04-09] MED LIST changes: -ASPCH81X PO; +ASPI-435 PO; +AZEL0.056; +BUPIVACAINE 0.25% 2.5MG/ML PF 10 ML VIAL ONE; +IOPAMIDOL INJ 61% 15 ML VIAL ONE; +LIDOCAINE HCL 1% MPF 5 ML VIAL ONE; -LOSA1TAB PO; +LOSA50TA6 PO; +METHYLPREDNISOLONE ACETATE 80 MG/ML VIAL ONE; +SPRIN/30 INH
[2017-04-09 15:40] VITALS: TEMP 36.6
--- NOTE | 2017-04-09 15:45 | Discharge Instructions ---
Discharge Instructions Date of Service Apr 09, 2017. Visit Reason for Visit: Low Back Pain Discharge Discharge Diagnosis / Problem: low back pain Discharge Goals Goal(s): Decrease discomfort, Improve function Activity Recommendations Activity Limitations: resume your previous activity Anesthesia . Post Anesthesia Instructions: If you have had General Anesthesia or IV Sedation: * Do not drive today. * Resume driving when surgeon permits. * Do not make important decisions or sign legal documents today. * Call surgeon for: 1. Temperature elevations greater than 101 degrees F. 2. Uncontrollable pain. 3. Excessive bleeding. 4. Persistent nausea and vomiting. 5. Medication intolerance (nausea, vomiting or rash). * For nausea and vomiting use only clear liquids such as: tea, soda, bouillon until nausea subsides, then gradually increase diet as tolerated. * If you have any concerns or questions, call your surgeon's office. If physician is unavailable and it is an emergency, call 911 or go to the nearest emergency room. . Diet Recommendations Recommended Home Diet: resume previous diet Procedures Procedures Performed: Left L5-S1 Facet Joint Injection Pending Studies Studies pending at discharge: no Medical Emergencies . Who to Call and When: Medical Emergencies: If at any time you feel your situation is an emergency, please call 911 immediately. . Non-Emergent Contact Non-Emergency issues call your: Specialist . . "Provider Documentation" section prepared by Bruno Nunez. .
[2017-04-09 15:53] VITALS: BP 154/82; PULSE 98; O2SAT 95
--- NOTE | 2017-04-09 16:13 | OPERATIVE REPORT ---
DATE OF OPERATION: 04/09/2017 PREOPERATIVE DIAGNOSES: Lumbar facet arthropathy and chronic low back pain. POSTOPERATIVE DIAGNOSES: Same. PROCEDURE: Left L5-S1 facet joint injection under fluoroscopic guidance. INDICATIONS: The patient is an 81-year-old white male who has had chronic pain in the low back. He has responded favorably to epidurals in the past and denervations and he is describing pain that is localized to the left L5-S1 facet joint and this joint is injected today to try to provide him with relief of the chronic lower pain that he had as he had responded favorably to a little higher facet denervations at L4-L5 in the past. PHYSICAL EXAMINATION: Pleasant male seated comfortably. He has point tenderness to palpation of his left L5-S1 facet joints, worse with extension and rotation. Normal lower extremity strength. CONSENT: Verbal and written consent was obtained from the patient. Risks and benefits were reviewed. Risks include, but are not limited to abscess and allergic reaction. The patient wishes to proceed. DESCRIPTION OF PROCEDURE: The patient was taken back to the special procedures room of the [facility], where he was maintained in a prone position. Backside was cleansed with Betadine x3 and a dry sterile dressing was applied. Fluoroscope was used to identify the left L5-S1 facet joint in an oblique view at 25 degrees. Then, the overlying skin of the joint was anesthetized with 4 mL of lidocaine 1% with a 25-gauge 1-1/2 inch needle. A 25-gauge 3-1/2 inch needle was then directed into the joint itself. Isovue-300 contrast demonstrated spread inferiorly in the joint. He then underwent injection after negative aspiration of 40 mg of Depo-Medrol and 0.5 mL and an additional 0.5 mL of bupivacaine 0.25%. Injection was well tolerated. DISPOSITION: 1. The patient was taken out into the discharge recovery area, where he will be discharged home once discharge criteria have been met. 2. Follow up in the [facility] office in 4 weeks' time. I attest to the content of the Intraoperative Record and any orders documented therein. Any exception s are noted below.
== END | disposition home or self-care (01) ==
LOC: X.SURG 13:49
PROVIDERS: ATTEND Physical Medicine & Rehabilitation
DX: M46.96 Unspecified inflammatory spondylopathy, lumbar region (principal); G89.29 Other chronic pain; M54.5 Low back pain

== ENCOUNTER → 2017-04-10 | Outpatient (CLI) | payer BC ==
[~2017-04-10] MED LIST changes: -BUPIVACAINE 0.25% 2.5MG/ML PF 10 ML VIAL ONE; -IOPAMIDOL INJ 61% 15 ML VIAL ONE; -LIDOCAINE HCL 1% MPF 5 ML VIAL ONE; -METHYLPREDNISOLONE ACETATE 80 MG/ML VIAL ONE
== END | disposition home or self-care (01) ==
LOC: C.LAB 11:05
PROVIDERS: ATTEND Urology
DX: R97.20 Elevated prostate specific antigen [PSA] (principal); N40.1 Benign prostatic hyperplasia with lower urinary tract symptoms

== ENCOUNTER → 2017-05-27 | Outpatient (CLI) | payer BC ==
[2017-05-27 12:11] LABS: HEMATOCRIT 42.9 % (42-52); HEMOGLOBIN 14.3 g/dL (14.0-18.0); MEAN CELL VOLUME 93.5 fL (80-100); MEAN CORPUSCULAR HEMOGLOBIN 31.2 pg (25-34); MEAN CORPUSCULAR HGB CONC 33.3 g/dl (32-36); PLATELET COUNT 180 K/uL (130-400); RED CELL DISTRIBUTION WIDTH CV 17.5 % (11.5-14.5); RED CELL DISTRIBUTION WIDTH SD 59.2 fL (36.4-46.3); WHITE BLOOD COUNT 9.41 K/uL (4.8-10.8)
[2017-05-27 12:49] LABS: ALBUMIN 3.5 gm/dl (3.4-5.0); BLOOD UREA NITROGEN 16 mg/dl (7-18); CALCIUM 8.7 mg/dl (8.5-10.1); CARBON DIOXIDE 29 mmol/L (21-32); CREATININE 1.16 mg/dl (0.60-1.40); GLUCOSE 117 mg/dl (70-99); POTASSIUM 4.2 mmol/L (3.5-5.1); SODIUM 139 mmol/L (136-145)
== END | disposition home or self-care (01) ==
LOC: C.LAB 11:22
PROVIDERS: ATTEND Internal Medicine Nephrology
DX: I12.9 Hypertensive chronic kidney disease with stage 1 through stage 4 chronic kidney disease, or unspecified chronic kidney disease (principal); N18.2 Chronic kidney disease, stage 2 (mild); N25.81 Secondary hyperparathyroidism of renal origin; R60.9 Edema, unspecified

== ENCOUNTER → 2017-08-15 | Outpatient (CLI) | payer BC ==
[~2017-08-15] MED LIST changes: +GABA100C13 PO; -GABA1CAP PO
--- NOTE | 2017-08-15 13:36 | DIAGNOSTIC IMAGING REPORT ---
RIGHT THUMB 3 VIEWS HISTORY: RIGHT THUMB PAIN COMPARISON: None. FINDINGS: There is no fracture or dislocation. Soft tissues are unremarkable. 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 There is also mild osteoarthritis within the first MCP joint and interphalangeal joint of the thumb. No bony erosions identified. IMPRESSION: 1. No fracture or dislocation within the right thumb. 2. Osteoarthritis as described above. Electronically signed by: Sukhi Moscoso M.D. 08/15/2017 1:35 PM Dictated Date/Time: 08/15/2017 1:33 PM
== END | disposition home or self-care (01) ==
LOC: C.RDSM 09:37
PROVIDERS: ATTEND Physician Assistant
DX: M79.644 Pain in right finger(s) (principal); M19.041 Primary osteoarthritis, right hand

== ENCOUNTER → 2017-11-27 | Outpatient (CLI) | payer BC, OTHER ==
[~2017-11-27] MED LIST changes: +FRS/40 PO; -FURO20TA PO; +GABA-1693 PO; -GABA100C13 PO
[2017-11-27 12:30] LABS: HEMATOCRIT 43.1 % (42-52); HEMOGLOBIN 14.4 g/dL (14.0-18.0); MEAN CELL VOLUME 92.9 fL (80-100); MEAN CORPUSCULAR HGB CONC 33.4 g/dl (32-36); MEAN PLATELET VOLUME 10.4 fL (7.4-10.4); PLATELET COUNT 170 K/uL (130-400); RED CELL DISTRIBUTION WIDTH CV 16.4 % (11.5-14.5); RED CELL DISTRIBUTION WIDTH SD 55.6 fL (36.4-46.3); WHITE BLOOD COUNT 10.53 K/uL (4.8-10.8)
[2017-11-27 12:41] LABS: ALBUMIN 3.4 gm/dl (3.4-5.0); BLOOD UREA NITROGEN 17 mg/dl (7-18); CALCIUM 9.3 mg/dl (8.5-10.1); CARBON DIOXIDE 29 mmol/L (21-32); CREATININE 1.14 mg/dl (0.60-1.40); GLUCOSE 111 mg/dl (70-99); PHOSPHORUS 3.1 mg/dl (2.5-4.9); POTASSIUM 4.4 mmol/L (3.5-5.1); SODIUM 138 mmol/L (136-145)
== END | disposition home or self-care (01) ==
LOC: C.LABBFT 11:02
PROVIDERS: ATTEND Internal Medicine Nephrology
DX: I12.9 Hypertensive chronic kidney disease with stage 1 through stage 4 chronic kidney disease, or unspecified chronic kidney disease (principal); N18.2 Chronic kidney disease, stage 2 (mild); R60.9 Edema, unspecified; N25.81 Secondary hyperparathyroidism of renal origin

== ENCOUNTER 2018-11-06 16:30 | Inpatient (IN) ==
[2018-11-06] MEDS ORDERED: ONDANSETRON INJ 2 MG/ML 2 ML VIAL IV STA (18:16)
[2018-11-06] MEDS ORDERED: HYDROmorphone INJ 0.5 MG/0.5 ML SYR IV PRN (18:16)
[2018-11-06] MEDS ORDERED: SODIUM CHLORIDE 0.9% 1000ML 1,000 ML IV STA (18:16)
[2018-11-06 18:24] LABS: Basophils # (auto) 0.02 K/uL (0-0.2); Basophils % (auto) 0.2 %; Eosinophils # (auto) 0.16 K/uL (0-0.5); Eosinophils % (auto) 1.9 %; Hematocrit (blood only) 48.7 % (42-52); Hemoglobin 17.1 g/dL (14.0-18.0); Immature Granulocytes # (auto) 0.03 K/uL (0.00-0.02); Immature Granulocytes % (auto) 0.4 %; Lymphocytes # (auto) 1.31 K/uL (1.2-3.4); Lymphocytes % (auto) 15.4 %; Mean Corpuscular Hgb Conc 35.1 g/dL (32-36); Mean Corpuscular Volume 95.5 fL (80-100); Mean Platelet Volume 10.1 fL (7.4-10.4); Monocytes % (auto) 9.4 %; Neutrophils # (auto) 6.16 K/uL (1.4-6.5); Neutrophils % (auto) 72.7 %; Platelet Count 215 K/uL (130-400); RDW Coefficient of Variation 14.6 % (11.5-14.5); RDW Standard Deviation 51.2 fL (36.4-46.3); White Blood Count 8.48 K/uL (4.8-10.8)
[2018-11-06 18:38] LABS: INR 3.2 (0.9-1.1); Prothrombin Time 30.3 Seconds (9.0-12.0)
[2018-11-06 19:15] LABS: Albumin Level 4.1 gm/dl (3.4-5.0); BUN Creatinine Ratio 19.8 (10-20); Bilirubin,Total 0.9 mg/dl (0.2-1); Calcium 9.1 mg/dl (8.5-10.1); Est GFR (Non-African American) 50.9; Potassium 3.9 mmol/L (3.5-5.1); Total Protein 8.1 gm/dl (6.4-8.2)
[2018-11-06] MEDS ORDERED: PROTHROMBIN COMP CONC- KCENTRA 2,000 UNITS in SYRINGE 0 ML IV ONE (19:15)
[2018-11-06] MEDS ORDERED: PHYTONADIONE 10 MG in SODIUM CHLORIDE 0.9% 50 ML IV ONE (19:20)
--- NOTE | 2018-11-06 19:22 | CT Scan Report ---
ABDOMEN AND PELVIS CT WITHOUT CONTRAST CT DOSE: 315.80 mGy.cm HISTORY: Acute right lower quadrant abdominal pain incarc. right inguinal hernia TECHNIQUE: Multiaxial CT images of the abdomen and pelvis were performed without contrast. A dose lo wering technique was utilized adhering to the principles of ALARA. COMPARISON STUDY: CT abdomen and pelvis / FINDINGS: Partially imaged 8 mm solid nodule of the lateral segment right middle lobe. Subpleural bibasilar ret iculation compatible with fibrotic changes. Mild subpleural cystic change. No pneumatosis or pneumope ritoneum. Cardiomegaly. Partially imaged aortic endograft. Prior median sternotomy. Spleen, liver, gallbladder, pancreas and adrenal glands appear unremarkable. 1.7 cm slightly exophyti c lesion about the interpolar right kidney demonstrates intermediate attenuation, unchanged in size f rom comparison and possibly reflective of a complex renal cyst. Nonspecific bilateral perinephric str anding. Prostamegaly. Unremarkable urinary bladder. Extensive calcification of the abdominal aorta wi th chronic appearing infrarenal dissection flap which is calcified. No adenopathy. Extensive colonic diverticulosis without acute diverticulitis. Right inguinal hernia redemonstrated containing mesenter ic fat and a loop of fluid-filled dilated ileum. Dilated fluid-filled ileum noted proximal to this me asures 3.4 cm transversely. Appendix appears normal. Soft tissues are unremarkable. Bones appear to b e intact. Degenerative changes of the spine, pelvis and hips. Multiple remote compression deformities are redemonstrated with 50% superior endplate compression deformity at L2 without retropulsion is ne w from comparison. IMPRESSION: 1. Bowel and fluid-filled right inguinal hernia redemonstrated resulting in a small bowel obstruction . No significant bowel wall thickening, pneumatosis or pneumoperitoneum. 2. Extensive colonic diverticulosis without acute diverticulitis. 3. Prostamegaly. 4. Age-indeterminate 50% superior endplate compression deformity at L2 without retropulsion is new fr om 10/25/2017. Correlate clinically. 5. Additional findings as above. Electronically signed by: Remy Kaur M.D. 11/06/2018 7:21 PM
[2018-11-06] MEDS ORDERED: BUPIVACAINE 0.5 % 5 MG/1 ML MPF 30ML VIAL ONE (19:23)
[2018-11-06] MEDS ORDERED: CEFAZOLIN 250 MG/ML 1 GM VIAL ONE (19:23)
[2018-11-06] MEDS ORDERED: LIDOCAINE HCL 1% 20 ML VIAL ONE (19:23)
--- NOTE | 2018-11-06 19:24 | History & Physical Report ---
Date of Service November 06, 2018 Assessment & Plan (1) Incarcerated right inguinal hernia: . Patient has an incarcerated right inguinal hernia with incarcerated small bowel which requires urgent attention. We will operate soon as possible. He does understand potential complication of bowel resection. History of Present Illness Primary Care Provider: Raghu Murphy MD Patient presents to the emergency room with incarcerated right inguinal hernia and possible bowel involvement. He has had 2 prior repairs. It is very tender and they are unable to reduce the hernia. He does take Coumadin for cardiac disease and the [facility] is helping us with treatment for this. He also has a pacemaker. Allergies Allergy/AdvReac Type Severity Reaction Status Date / Time oxycodone Allergy Severe HALLUCINATI Verified 11/06/18 17:55 ONS TASHA Inhibitors AdvReac Intermediate Cough Verified 11/06/18 17:55 rosuvastatin AdvReac Intermediate CONSTIPATIO Verified 11/06/18 17:55 N niacin AdvReac Mild FLUSHING Verified 11/06/18 17:55 Home Medications Home Medications Medication Instructions Recorded Confirmed Type Restasis 1 drp OPHTHALMIC (EYE) BID 02/10/18 11/06/18 History acetaminophen [Tylenol] 650 mg PO Q6H PRN 02/10/18 11/06/18 History aspirin [Aspir-81] 162 mg PO QAM 02/10/18 11/06/18 History atorvastatin 10 mg PO HS 02/10/18 11/06/18 History azelastine 2 spray INTRANASAL BID 02/10/18 11/06/18 History carvedilol 6.25 mg PO PM 02/10/18 11/06/18 History cholecalciferol (vitamin D3) 1,000 unit PO PM 02/10/18 11/06/18 History [Vitamin D3] finasteride 5 mg PO QPM 02/10/18 11/06/18 History fluticasone propionate [Flonase 1 spray INTRANASAL BID 02/10/18 11/06/18 History Allergy Relief] gabapentin 100 mg PO DIRECTED PRN 02/10/18 11/06/18 History glucosamine-chondroitin 1 tab PO BID 02/10/18 11/06/18 History isosorbide mononitrate 60 mg PO QAM 02/10/18 11/06/18 History losartan 50 mg PO QAM 02/10/18 11/06/18 History multivitamin 1 tab PO QAM 02/10/18 11/06/18 History nitroglycerin [Nitrostat] 0.4 mg SUBLINGUAL DIRECTED PRN 02/10/18 11/06/18 History pantoprazole 40 mg PO QAM 02/10/18 11/06/18 History polyethylene glycol 3350 [Miralax] 17 g PO DIRECTED PRN 02/10/18 11/06/18 History temazepam 7.5 - 15 mg PO HS PRN 02/10/18 11/06/18 History tramadol 50 mg PO Q12 PRN 02/10/18 11/06/18 History warfarin [Coumadin] 5 mg PO 2XWK 02/10/18 11/06/18 History furosemide 40 mg PO QAM 11/06/18 11/06/18 History warfarin [Coumadin] 2.5 mg PO 5XWK 11/06/18 11/06/18 History Past Med/Surg History Social History Preferred Language: Nigerien Communication Ability: Effective Beliefs That Will Affect Care: None Current Living Situation: Spouse current occupational status: retired Feels Safe at Home: Yes Smoking Status: Former smoker Second Hand Exposure: No Hx Alcohol Use: No Hx Substance Use: No Review of Systems All systems reviewed & are unremarkable except as noted in HPI & below Physical Exam Physical Exam: Currently he is awake and alert he is in mild pain is breathing comfortably his HEENT exam is grossly normal his heart shows regular rhythm he does have a pacemaker in the left chest his abdomen is soft he has a firm mass in the right inguinal area which is nonreducible. It is tender. His extremities are warm and well-perfused. Results & Data Vital Signs (Past 12 Hours) Vital Signs Temp Pulse Pulse Resp BP BP Pulse Ox 11/06/18 18:30 70 18 147/70 H 93 11/06/18 18:13 70 18 166/91 H 98 11/06/18 18:11 97 11/06/18 16:58 36.5 C 71 20 148/79 H 96
[2018-11-06] MEDS ORDERED: PROPOFOL IV EMULSION 10 MG/ML 20 ML VIAL IV ONE (19:33)
[2018-11-06] MEDS ORDERED: fentaNYL citrate 100 MCG/2 ML VIAL ONE (19:34)
--- NOTE | 2018-11-06 19:54 | History & Physical Report ---
Date of Service November 06, 2018 Assessment & Plan (1) Incarcerated right inguinal hernia: Patient with bowel and fluid-filled right inguinal hernia with resulting SBO. No evidence of perforation. Patient presently afebrile, hemodynamically stable, NAD. Abdominal pain is controlled. Hernia has reduced somewhat. Dr. Cho at bedside, will proceed to OR for hernia repair. Patient with history of stable, revascularized CAD, stable systolic/diastolic CHF, prior TIA. Per RCRI risk stratification, patient is at risk for perioperative MACE. -Patient anticoagulated on Coumadin for atrial fibrillation, INR of 3.2. Per discussion with Dr. Irby will provide Vitamin K 10mg IV and PCC 2000 units for reversal. Will resume Coumadin at home dose when cleared by surgery -Will trend troponin post-operatively -Continue Tramadol PRN Pain (2) CAD (coronary artery disease): Patient with CAD s/p 2V CABG in 1983 with BELLAMY to LAD, Saphenous to RCA. He had acute saphenous vein graft thrombosis in setting of antiplatelet withdrawal in 2009 with subsequent stenting. His last cardiac catheterization was performed in September 2016 which revealed patent grafts. He reports compliance with his cardiac medications. Denies exertional chest discomfort. He has been seen by inpatient cardiology in the past. -Patient with seemingly stable CAD. He is at risk for post operative MACE. Will admit to PCU post-operatively for continuous cardiac monitoring. -Trend troponin -Resume ASA post-operatively when ok with surgical team -Continue Atorvastatin 10mg po daily -Continue Carvedilol 6.25mg po q PM. Patient to have dose tonight prior to OR -Continue Isosorbide moninitrate -Will hold Losartan and Lasix for now - assess renal function postoperatively and resume if stable Present on Admission?: Yes (3) CHF (congestive heart failure): Patient with ischemic cardiomyopathy. Last echocardiogram in September 2016 with moderate sized inferior and inferolateral WMA ith hypokinesis. Moderate LVH. Mildly reduced systolic function with EF of 45%. Dilated LA, RA, mild AR, mild , moderate MR, mild TR, mild PH with PASP of 45mmHg. Patient presently appears to be well compensated. No edema/rales/JVD or cardiac gallops. No complaints consistent with decompensated CHF. -As above, post operative cardiac monitoring and troponins -Continue Carvedilol -Continue Isosorbide mononitrate -Holding Losartan and Lasix for now but may be resumed postoperatively -Careful use of IVF Present on Admission?: Yes (4) Aortic valve replaced: Patient s/p TAVR performed at [facility] on 07/28/18. Procedure was well tolerated with no complications identified. Patient reports that his REY has somewhat improved since the operation. He still has mitral regurgitation and may possibly have valvular surgery in the future. No evidence of failure -Continue to monitor Present on Admission?: Yes (5) Hypertension: Blood pressure stable at present -Continue Carvedilol, Isosorbide -Holding Lasix and Losartan at this time -Continue to monitor Present on Admission?: Yes (6) Hyperlipidemia: Chronic. Stable -Continue Atorvastatin (7) Atrial fibrillation: Patient with atrial fibrillation s/p pacemaker placement. Now paced at 70bpm. He is on Coumadin, INR of 3.2 -Coumadin reversal as above with Vitamin K and PCC -Resume when OK with surgery F/E/N - Heplock. Electrolytes within normal limits, check Mg and PO4 x 1, NPO for now for OR Ppx - SCDs to bilateral LE. Continue PO Protonix 40mg daily. Temazepam PRN insomnia Code - Full per discussion with patient. Dispo - OR then PCU Present on Admission?: Yes History of Present Illness Chief Complaint: right inguinal hernia Primary Care Provider: Raghu Murphy MD Mr. Coffey is a pleasant 83yo C male with multiple medical comorbidities, notably CAD s/p CABG x 2V with subsequent stenting, CHF, AF on Coumadin anti coagulation with therapeutic INR of 3.2. He had TAVR perfrmed at [facility] in [place] on 07/28/18. Procedure was well tolerated and he has had an fair recovery. Patient with longstanding history of right inguinal hernia. He reports that the hernia "pops out" every now and then but he is always able to reduce it. Today patient's hernia popped out and became firm and painful. Patient was not able to reduce the hernia so he came to the ER. Last BM this AM, normal. Last meal was breakfast around 09:00 today. On arrival to the ER he was found to be afebrile, hemodynamically stable. He is presently feeling well. Pain is well controlled. The hernia has partially reduced. Patient denies chest pain at rest or with exertion. He does get some exertional dyspnea which has improved since his TAVR. He is unable to perform much physical activity due to orthopedic discomfort. ER Course: Vitamin K 10mg IV, KCentra 2000 units x 1 Allergies Allergy/AdvReac Type Severity Reaction Status Date / Time oxycodone Allergy Severe HALLUCINATI Verified 11/06/18 17:55 ONS TASHA Inhibitors AdvReac Intermediate Cough Verified 11/06/18 17:55 rosuvastatin AdvReac Intermediate CONSTIPATIO Verified 11/06/18 17:55 N niacin AdvReac Mild FLUSHING Verified 11/06/18 17:55 Home Medications Home Medications Medication Instructions Recorded Confirmed Type Restasis 1 drp OPHTHALMIC (EYE) BID 02/10/18 11/06/18 History acetaminophen [Tylenol] 650 mg PO Q6H PRN 02/10/18 11/06/18 History aspirin [Aspir-81] 162 mg PO QAM 02/10/18 11/06/18 History atorvastatin 10 mg PO HS 02/10/18 11/06/18 History azelastine 2 spray INTRANASAL BID 02/10/18 11/06/18 History carvedilol 6.25 mg PO PM 02/10/18 11/06/18 History cholecalciferol (vitamin D3) 1,000 unit PO PM 02/10/18 11/06/18 History [Vitamin D3] finasteride 5 mg PO QPM 02/10/18 11/06/18 History fluticasone propionate [Flonase 1 spray INTRANASAL BID 02/10/18 11/06/18 History Allergy Relief] gabapentin 100 mg PO DIRECTED PRN 02/10/18 11/06/18 History glucosamine-chondroitin 1 tab PO BID 02/10/18 11/06/18 History isosorbide mononitrate 60 mg PO QAM 02/10/18 11/06/18 History losartan 50 mg PO QAM 02/10/18 11/06/18 History multivitamin 1 tab PO QAM 02/10/18 11/06/18 History nitroglycerin [Nitrostat] 0.4 mg SUBLINGUAL DIRECTED PRN 02/10/18 11/06/18 History pantoprazole 40 mg PO QAM 02/10/18 11/06/18 History polyethylene glycol 3350 [Miralax] 17 g PO DIRECTED PRN 02/10/18 11/06/18 History temazepam 7.5 - 15 mg PO HS PRN 02/10/18 11/06/18 History tramadol 50 mg PO Q12 PRN 02/10/18 11/06/18 History warfarin [Coumadin] 5 mg PO 2XWK 02/10/18 11/06/18 History furosemide 40 mg PO QAM 11/06/18 11/06/18 History warfarin [Coumadin] 2.5 mg PO 5XWK 11/06/18 11/06/18 History Past Med/Surg History Medical History CHF (congestive heart failure) CAD (coronary artery disease) Atrial fibrillation DX 2014 Colonoscopy (08/25/12) History of TIA (transient ischemic attack) OVER 5 YEARS AGO AND NO RESIDUAL EFFECTS Hx of myocardial infarction 1983 AND HAD CABG X2 Hyperlipidemia Hypertension Surgical History History of coronary artery bypass graft x 2 1983 - FOLLOWS WITH [facility] Hx of aortic valve replacement S 05/2018 S/P hernia repair RIGHT INGUINAL HERNIA REPAIR Status post placement of cardiac pacemaker 2013, [employer] - FOLLOWS WITH [facility] LAST CHECK 05/2018 AND NEXT CHECK WILL BE 10/2018 Status post right knee replacement Stented coronary artery 2014 ONE STENT WAS PLACED AND FOLLOWS WITH [facility] Family History Other Heart disease Social History Preferred Language: Greenlandic Communication Ability: Effective Beliefs That Will Affect Care: None Current Living Situation: Spouse current occupational status: retired Feels Safe at Home: Yes Smoking Status: Former smoker Second Hand Exposure: No Hx Alcohol Use: No Hx Substance Use: No Review of Systems Review of Systems: All systems reviewed & are unremarkable except as noted in HPI & below +Abdominal pain +Chills Physical Exam Physical Exam: General: patient resting comfortably, NAD, non-toxic in appearance, AA&O x 4 Skin: warm, dry, intact, small erythematous circular lesions on ankles, bug bites HEENT: NC/AT, PERRL, EOMI, anicteric sclera, conjunctiva without injection, external ear normal to inspection and nontender, nares patent, moist mucus membranes, dentition intact, no oropharyngeal lesions, neck supple, trachea midline, no LAD, no thyromegaly, no JVD Heart: +S1/S2, regular, 3/6 holosystolic blowing murmur over mitral valve, no rubs/gallops Lungs: equal air entry bilaterally, no rales/rhonchi/wheezes Abd: +BS, soft, ND, no masses/organomegaly/ascites, molina hernia palpated in right inguinal region, tender to palpation Ext: warm, 2+ pulses in UE/LE bilaterally, no clubbing/cyanosis or edema Neuro: nonfocal, patient AA&O x 4, speech intact, no facial droop, moving all extremities on command with equal strength 5/5 Results & Data Vital Signs (Past 12 Hours) Vital Signs Temp Pulse Pulse Resp BP BP Pulse Ox 11/06/18 19:34 70 20 144/75 H 95 11/06/18 18:30 70 18 147/70 H 93 11/06/18 18:13 70 18 166/91 H 98 11/06/18 18:11 97 11/06/18 16:58 36.5 C 71 20 148/79 H 96 Laboratory Results Lab Results 11/06/18 11/06/18 11/06/18 Range/Units 17:45 17:45 17:45 WBC 8.48 (4.8-10.8) K/uL RBC 5.10 (4.7-6.1) M/uL Hgb 17.1 (14.0-18.0) g/dL Hct 48.7 (42-52) % MCV 95.5 (80-100) fL MCH 33.5 (25-34) pg MCHC 35.1 (32-36) g/dL RDW Std Deviation 51.2 H (36.4-46.3) fL RDW Coeff of [place]yer 14.6 H (11.5-14.5) % Plt Count 215 (130-400) K/uL MPV 10.1 (7.4-10.4) fL Immature Gran % (Auto) 0.4 % Neut % (Auto) 72.7 % Lymph % (Auto) 15.4 % [place] % (Auto) 9.4 % Eos % (Auto) 1.9 % Baso % (Auto) 0.2 % Immature Gran # (Auto) 0.03 H (0.00-0.02) K/uL Neut # (Auto) 6.16 (1.4-6.5) K/uL Lymph # (Auto) 1.31 (1.2-3.4) K/uL [place] # (Auto) 0.80 H (0.11-0.59) K/uL Eos # (Auto) 0.16 (0-0.5) K/uL Baso # (Auto) 0.02 (0-0.2) K/uL PT 30.3 H (9.0-12.0) Seconds INR 3.2 H (0.9-1.1) Sodium 137 (136-145) mmol/L Potassium 3.9 (3.5-5.1) mmol/L Chloride 102 (98-107) mmol/L Carbon Dioxide 29 (21-32) mmol/L Anion Gap 6.0 (3-11) BUN 26 H (7-18) mg/dl Creatinine 1.29 (0.6-1.4) mg/dl Est Cr Clr Drug Dosing 42.0 ml/min Est GFR ( Amer) 59.0 Est GFR (Non-Af Amer) 50.9 BUN/Creatinine Ratio 19.8 (10-20) Glucose 162 H (70-99) mg/dl Calcium 9.1 (8.5-10.1) mg/dl Total Bilirubin 0.9 (0.2-1) mg/dl AST 31 (15-37) U/L ALT 23 (12-78) U/L Alkaline Phosphatase 61 (45-117) U/L Total Protein 8.1 (6.4-8.2) gm/dl Albumin 4.1 (3.4-5.0) gm/dl Globulin 4.0 (2.5-4.0) gm/dl Albumin/Globulin Ratio 1.0 (0.9-2) Lipase 108 (73-393) U/L Specimen Hemolysis Diagnostic Findings ABDOMEN AND PELVIS CT WITHOUT CONTRAST CT DOSE: 315.80 mGy.cm HISTORY: Acute right lower quadrant abdominal pain incarc. right inguinal hernia TECHNIQUE: Multiaxial CT images of the abdomen and pelvis were performed without contrast. A dose lowering technique was utilized adhering to the principles of ALARA. COMPARISON STUDY: CT abdomen and pelvis / FINDINGS: Partially imaged 8 mm solid nodule of the lateral segment right middle lobe. Subpleural bibasilar reticulation compatible with fibrotic changes. Mild subpleural cystic change. No pneumatosis or pneumoperitoneum. Cardiomegaly. Partially imaged aortic endograft. Prior median sternotomy. Spleen, liver, gallbladder, pancreas and adrenal glands appear unremarkable. 1.7 cm slightly exophytic lesion about the interpolar right kidney demonstrates intermediate attenuation, unchanged in size from comparison and possibly reflective of a complex renal cyst. Nonspecific bilateral perinephric stranding. Prostamegaly. Unremarkable urinary bladder. 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 No adenopathy. Extensive colonic diverticulosis without acute diverticulitis. Right inguinal hernia redemonstrated containing mesenteric fat and a loop of fluid-filled dilated ileum. Dilated fluid-filled ileum noted proximal to this measures 3.4 cm transversely. Appendix appears normal. Soft tissues are unremarkable. Bones appear to be intact. Degenerative changes of the spine, pelvis and hips. Multiple remote compression deformities are redemonstrated with 50% superior endplate compression deformity at L2 without retropulsion is new from comparison. IMPRESSION: 1. Bowel and fluid-filled right inguinal hernia redemonstrated resulting in a small bowel obstruction. No significant bowel wall thickening, pneumatosis or pneumoperitoneum. 2. Extensive colonic diverticulosis without acute diverticulitis. 3. Prostamegaly. 4. Age-indeterminate 50% superior endplate compression deformity at L2 without retropulsion is new from 10/25/2017. Correlate clinically. 5. Additional findings as above. Electronically signed by: Remy Kaur M.D. 11/06/2018 7:21 PM Dictated: 11/06/181911 Transcribed: 11/06/181911 ECG Additional Comments: VPaced at 70bpm Code Status & VTE Plan Code Status full VTE Prophylaxis Plan VTE Prophylaxis will be ordered: Yes (1) CAD (coronary artery disease) Associated angina: without angina Coronary Disease-Associated Artery/Lesion type: beaver artery [place] vs. transplanted heart: beaver heart Qualified Code(s): I25.10 - Atherosclerotic heart disease of beaver coronary artery without angina pectoris (2) CHF (congestive heart failure) Heart failure type: combined systolic and diastolic Heart failure chronicity: chronic Qualified Code(s): I50.42 - Chronic combined systolic (congestive) and diastolic (congestive) heart failure (3) Atrial fibrillation Atrial fibrillation type: unspecified Qualified Code(s): I48.91 - Unspecified atrial fibrillation (4) Hyperlipidemia Hyperlipidemia type: unspecified Qualified Code(s): E78.5 - Hyperlipidemia, unspecified (5) Hypertension Hypertension type: essential hypertension Qualified Code(s): I10 - Essential (primary) hypertension
[2018-11-06] MEDS ORDERED: TEMAZEPAM 7.5 MG CAPSULE PO PRN (20:39)
[2018-11-06] MEDS ORDERED: DOCUSATE SODIUM 100 MG CAP PO PRN (20:39)
[2018-11-06] MEDS ORDERED: TRAMADOL HCL 50 MG TABLET PO PRN (20:39)
[2018-11-06] MEDS ORDERED: GABAPENTIN 100 MG CAP PO PRN (20:39)
[2018-11-06] MEDS ORDERED: ONDANSETRON INJ 2 MG/ML 2 ML VIAL IV PRN ×2 (20:39→21:55)
[2018-11-06] MEDS ORDERED: ACETAMINOPHEN 325 MG TAB PO PRN ×2 (20:39→21:55)
[2018-11-06] MEDS ORDERED: POLYETHYLENE (MIRALAX) 17 GM PACK PO PRN (20:39)
[2018-11-06] MEDS ORDERED: CEFAZOLIN 2000MG 2,000 MG/15 ML SYR IV ONE (21:33)
--- NOTE | 2018-11-06 21:52 | Operative Report ---
Post Operative Report Pre & Post Diagnosis Operation Date: 11/06/18 19:15 Pre-Op Diagnosis: Incarcerated Right Inguinal Hernia Post-Op Diagnosis: Incarcerated Right Inguinal Hernia Procedure Operation Date: 11/06/18 19:15 Actual Procedures p Inguinal Hernia Repair(Not Applicable) - Dalton Cho MD, FACS Incarcerated Surgeon Dalton Cho MD, FACS [employer] nurses Estimated Blood Loss 5 Findings Consistent with Post-Op Diagnosis Specimens none Description of Procedure see dictation I attest to the content of the Intraoperative Record and any orders documented therein. Any exceptions are noted below.
[2018-11-06] MEDS ORDERED: ACETAMINOPHEN 1,000 MG/100 ML VIAL IV STA (21:53)
[2018-11-06] MEDS ORDERED: HYDROCODONE/ACETAMOPHEN 5/325MG TAB PO PRN ×2 (21:55)
[2018-11-06] MEDS ORDERED: PROMETHAZINE HCL 12.5 MG in SODIUM CHLORIDE 0.9% 50 ML IV PRN (21:55)
[2018-11-06] MEDS ORDERED: MoRPHine SULFATE 2 MG/ML CARP IV PRN ×2 (21:55)
[2018-11-06 22:04] LABS: Magnesium 2.2 mg/dl (1.8-2.4); Phosphorus 2.2 mg/dl (2.5-4.9)
--- NOTE | 2018-11-06 22:19 | Anesthesiology Progress Note ---
Date of Service November 06, 2018 The patient had an INR of 3.2 in the ED and K Centra was given there prior to transporting him to the O.R. Anesthesia Post Procedure Vital Signs Vital Signs: Temp Pulse Pulse Resp BP BP Pulse Ox 11/06/18 20:23 70 16 129/66 96 11/06/18 20:17 70 18 129/66 95 11/06/18 19:34 70 20 144/75 H 95 11/06/18 18:30 70 18 147/70 H 93 11/06/18 18:13 70 18 166/91 H 98 11/06/18 18:11 97 11/06/18 16:58 36.5 C 71 20 148/79 H 96 Pain Intensity Right Groin: Pain Intensity: 8 Transfer of Care Handoff Completed per policy Notes Mental Status: alert / awake / arousable Patient Amnestic to Procedure: Yes Nausea / Vomiting: adequately controlled Pain: adequately controlled Airway Patency, RR, SpO2: stable & adequate BP & HR: stable & adequate Hydration State: stable & adequate Anesthetic Complications: no major complications apparent and Pt Satisfied with anesthetic care
[2018-11-06] MEDS ORDERED: ACETAMINOPHEN 1000 MG/100 ML IV IV ONE (22:22)
--- NOTE | 2018-11-06 22:26 | Anesthesiology Progress Note ---
Date of Service November 06, 2018 Anesthesia Post Procedure Vital Signs Vital Signs: Temp Pulse Pulse Resp BP BP Pulse Ox 11/06/18 20:23 70 16 129/66 96 11/06/18 20:17 70 18 129/66 95 11/06/18 19:34 70 20 144/75 H 95 11/06/18 18:30 70 18 147/70 H 93 11/06/18 18:13 70 18 166/91 H 98 11/06/18 18:11 97 11/06/18 16:58 36.5 C 71 20 148/79 H 96 Pain Intensity Right Groin: Pain Intensity: 8 Transfer of Care Handoff Completed per policy Notes Mental Status: alert / awake / arousable Patient Amnestic to Procedure: Yes Nausea / Vomiting: adequately controlled Pain: adequately controlled Airway Patency, RR, SpO2: stable & adequate BP & HR: stable & adequate Hydration State: stable & adequate Anesthetic Complications: no major complications apparent and Pt Satisfied with anesthetic care
[2018-11-06] MEDS ORDERED: GLYCOPYRROLATE 0.2 MG/ML VIAL ONE (22:34)
[2018-11-06] MEDS ORDERED: NEOSTIGMINE METHYLSULFATE 5 MG/5 ML SYR ONE (22:34)
[2018-11-06] MEDS ORDERED: ROCURONIUM BROMIDE 10 MG/ML 5 ML VIAL ONE (22:35)
[2018-11-06] MEDS: SODIUM CHLORIDE 0.9% 1000ML 1,000 ML IV SCH (23:50)
[2018-11-07] MEDS: FLUTICASONE PROPIONATE NA SPR 16 GM BTL SCH ×3 (00:03→20:36)
[2018-11-07] MEDS: ATORVASTATIN 10 MG TAB PO SCH ×2 (00:04→20:36)
[2018-11-07] MEDS: FINASTERIDE 5 MG TAB PO SCH ×2 (00:04→20:36)
[2018-11-07] MEDS: CARVEDILOL 6.25 MG TAB PO SCH ×2 (00:04→20:36)
[2018-11-07] MEDS: AZELASTINE~ORDER AWAITING ACTION SCH ×3 (00:05→14:20)
[2018-11-07] MEDS: RESTASIS~ORDER AWAITING ACTION SCH ×3 (00:05→14:21)
--- NOTE | 2018-11-07 01:46 | Operative Report ---
DATE OF OPERATION: 11/06/2018 NAME OF OPERATION: Incarcerated right inguinal hernia repair and femoral hernia repair. PREOPERATIVE DIAGNOSIS: Incarcerated right inguinal hernia. POSTOPERATIVE DIAGNOSIS: Incarcerated right inguinal hernia. This is recurrent hernia. STAFF SURGEON: Dalton Cho MD ANESTHESIA: General. DESCRIPTION OF PROCEDURE: The patient was brought into the operating room and placed on the operating table in supine position. His right lower quadrant was prepped and draped in the usual fashion. An incision was made in the right lower quadrant carrying dissection down through previous scar tissue. The skin and subcutaneous tissue were anesthetized using 0.5% plain Marcaine. The external oblique fibers were identified. There was severe scar tissue, these were mobilized. Cord structures identified. The hernia sac identified, which appeared to be a direct hernia. I then was able to identify what appeared to be a lipoma within a femoral hernia. The lipoma within the femoral hernia was then mobilized and then reduced. The other hernia sac was also mobilized and reduced. A mesh plug was placed into the direct defect. A mesh plug made out of a piece of rolled mesh was placed into the femoral defect. This was secured using 2-0 Ethibond suture. The other mesh plug was secured to surrounding tissue using 0 silk suture. The external oblique fibers were then closed over the mesh plug around the cord structures and then the site irrigated with antibiotic solution. Subcutaneous tissue reapproximated using 2-0 plain suture after a #15 round Lance-Simental drain was placed which was secured using 3-0 nylon suture. Skin was reapproximated using 4-0 nylon suture and Steri-Strips. The patient was transferred to recovery room in stable condition. There was no bloody fluid or evidence of bowel ischemia. I attest to the content of the Intraoperative Record and any orders documented therein. Any exception s are noted below.
[2018-11-07 03:07] LABS: Appearance Urine Cloudy (Clear); Bacteria Urine Automated Negative (Negative); Bilirubin Urine Negative (Negative); Blood Urine 3+ (Negative); Color Urine Yellow; Glucose Urine UA Negative (Negative); Ketones Urine Trace (Negative); Leukocyte Esterase Urine Negative (Negative); Nitrite Urine Negative (Negative); Protein Urine Negative (Negative); Urobilinogen Urine Negative (Negative)
[2018-11-07 03:21] LABS: RBC Urine Automated >30 /hpf (0-4)
[2018-11-07] MEDS: CEFAZOLIN 1000MG 1,000 MG/7.5 ML SYR IV SCH ×3 (03:21→20:36)
--- NOTE | 2018-11-07 03:33 | Emergency Department Note ---
Entered by Dalton Dunham acting as a scribe for Scooby Llamas MD ED Provider Note CHIEF COMPLAINT: Right groin pain HISTORY OF PRESENT ILLNESS: The patient is an 83 year old male who presents to the Emergency Room with complaints of constant right sided groin pain that started today around 1600, 2 hours ago. The patient rates the pain as a 10/10 and it is worse with palpation. The patient reports having chills and cold sweats as well as the pain. The patient notes that he has a hernia located on the right side that he has had operated on twice. He mentioned that he can normally reduce the hernia by himself, but this time he is unable to. Per the patient's family, he had a coronary valve replacement in July so he is currently on Coumadin. Pt denies LOC, headache, fevers, visual changes, neck pain, chest pain, breathing difficulties, nausea, vomiting, abdominal pain, back pain, melena, hematochezia, urinary symptoms, numbness, weakness, lymphadenopathy, rash, or other complaints. REVIEW OF SYSTEMS: See HPI for pertinent positives and negatives. A total of ten systems were reviewed and were otherwise negative. PMHx/PSHx: Right inguinal hernia, CHF, CAD, Pacemaker, HLD, HTN, TIA, AFib SOCIAL HISTORY: Patient lives at home. PHYSICAL EXAM: GENERAL: Awake, alert, uncomfortable-appearing, in no distress HENT: Normocephalic, atraumatic. Oropharynx unremarkable. EYES: Normal conjunctiva. Sclera non-icteric. NECK: Inspection normal. Non-tender. Supple. No nuchal rigidity. FROM. No masses. RESPIRATORY: Clear to auscultation. No wheezes. No rales. Normal respiratory effort. CARDIAC: Normal rate. Normal rhythm. No murmurs. No rubs. Extremities warm and well perfused. Pulses equal. No JVD. GI: Soft, non-distended. No tenderness to palpation. No rebound or guarding. No masses. : Nonreducible right inguinal hernia noted. MUSCULOSKELETAL: Atraumatic. Chest examination reveals no tenderness. The back is symmetrical on inspection without obvious abnormality. There is no CVA tenderness to palpation. No joint edema. LOWER EXTREMITIES: Calves are equal size bilaterally and non-tender. No edema. No discoloration. NEURO: Normal sensorium. No sensory or motor deficits noted. SKIN: No rash or jaundice noted. EMERGENCY DEPARTMENT COURSE: 1812: The patient was evaluated in room C09, and a complete history and physical examination were performed. 183: I spoke to Dr. Cho - General Surgery and he is going to evaluate the patient. 1899: I spoke to Dr. Cho after he had evaluated the patient and he will be bringing him to the OR. 1902: I spoke to Dr. Orozco - [facility] Hospitalist about the patient's case and she will be accepting him for further evaluation. 1904: I spoke to Dr. Olivares - Hematology about the patient's case. She recommended 10mg of Vitamin K and 2000 units of K-Centra for the patient. She stated that within 15 minutes of receiving the K-Centra, the patient will be ready for surgery. 1914: I spoke to Dr. Cho about Dr. Olivares's recommendation and he is in agreement with the plan. 1927: I updated the patient on results and the treatment plan. He fully understands and agrees with the plan. MEDICAL DECISION MAKING: Triage Nursing notes reviewed and agree them. The patient's history was concerning for abdominal pain and hernia. Differential diagnosis: Etiologies such as incarcerated hernia, appendicitis, diverticulitis, PUD, biliary pathology, UTI, pancreatitis, obstruction, mesenteric ischemia, aortic pathology, infections, inflammatory bowel disease, renal colic, as well as others were entertained. Physical examination findings: As above. Incarcerated right inguinal hernia peer ER treatment provided: Monitoring IV Zofran IV Dilaudid On reassessment the patient felt better. IV Kcentra and vitamin K given after medicine and anticoagulation consult. Diagnostics interpreted by me: ECG: Paced rhythm. The labs revealed an unremarkable CBC and chemistry panel. INR 3.2. Imaging studies: CT scan of the pelvis performed. Consultation: A consultation was placed with the general surgeon on-call, Dr. Cho. I also consulted with Dr. Orozco of internal medicine and Dr. Suzan Olivares from endocoagulation. The case was discussed and diagnostics were reviewed. The patient was evaluated in the ER by general surgery for further treatment. IMPRESSION: Incarcerated right inguinal hernia PLAN: Admitted as inpatient The scribe's documentation has been prepared under my direction and personally r eviewed by me in its entirety. I confirm that the note above accurately reflects all work, treatment, procedures, and medical decision making performed by me. Impression & Plan Incarcerated right inguinal hernia Past Med/Surg History Medical History CHF (congestive heart failure) CAD (coronary artery disease) Atrial fibrillation DX 2014 Colonoscopy (08/25/12) History of TIA (transient ischemic attack) OVER 5 YEARS AGO AND NO RESIDUAL EFFECTS Hx of myocardial infarction 1983 AND HAD CABG X2 Hyperlipidemia Hypertension Surgical History History of coronary artery bypass graft x 2 1984 - FOLLOWS WITH [facility] Hx of aortic valve replacement [facility] 05/2018 S/P hernia repair RIGHT INGUINAL HERNIA REPAIR Status post placement of cardiac pacemaker 2013, [employer] - FOLLOWS WITH [facility] LAST CHECK 05/2018 AND NEXT CHECK WILL BE 10/2018 Status post right knee replacement Stented coronary artery 2014 ONE STENT WAS PLACED AND FOLLOWS WITH [facility] Family History Other Heart disease Social History Preferred Language: Mohawk Communication Ability: Effective Beliefs That Will Affect Care: None Current Living Situation: Spouse current occupational status: retired Other Information That Helps Us Care for You: No Feels Safe at Home: Yes Safety Concerns: Feels Safe At This Time Smoking Status: Never smoker Second Hand Exposure: No Hx Alcohol Use: No Hx Substance Use: No Results & Data Vital Signs Vital Signs - 24 hr 11/06/18 16:58 11/06/18 18:10 11/06/18 18:11 Temperature 36.5 C Temperature Source Oral Sepsis Recent Fever Within 48 Hours No Sepsis New/Unexplained Change in Mental Status No Sepsis Action Taken by Nursing No Action Required Pulse Rate 71 70 Pulse Rate [Left Finger] Pulse Rate from SpO2 Sensor 70 Pulse Rhythm Regular Pulse Rhythm [Left Finger] Pulse Strength Normal Pulse Strength [Left Finger] Respiratory Rate 20 19 Respiratory Effort / Characteristics Non-Labored Spontaneous Respiratory Depth Normal Respiratory Pattern Regular Blood Pressure 148/79 H 166/91 H Blood Pressure [Left Arm] Blood Pressure Mean 102 116 Blood Pressure Mean [Left Arm] Blood Pressure Position Sitting Blood Pressure Position [Left Arm] Pulse Oximetry 96 95 97 Oxygen Delivery Method Room Air Room Air 11/06/18 18:13 11/06/18 18:17 11/06/18 18:20 Temperature Temperature Source Sepsis Recent Fever Within 48 Hours Sepsis New/Unexplained Change in Mental Status Sepsis Action Taken by Nursing Pulse Rate 70 73 71 Pulse Rate [Left Finger] Pulse Rate from SpO2 Sensor 73 71 Pulse Rhythm Pulse Rhythm [Left Finger] Pulse Strength Pulse Strength [Left Finger] Respiratory Rate 18 23 22 Respiratory Effort / Characteristics Respiratory Depth Respiratory Pattern Blood Pressure 166/91 H Blood Pressure [Left Arm] Blood Pressure Mean 116 Blood Pressure Mean [Left Arm] Blood Pressure Position Blood Pressure Position [Left Arm] Pulse Oximetry 98 95 95 Oxygen Delivery Method Room Air 11/06/18 18:25 11/06/18 18:30 11/06/18 18:35 Temperature Temperature Source Sepsis Recent Fever Within 48 Hours Sepsis New/Unexplained Change in Mental Status Sepsis Action Taken by Nursing Pulse Rate 70 70 73 Pulse Rate [Left Finger] 70 Pulse Rate from SpO2 Sensor 70 70 69 Pulse Rhythm Pulse Rhythm [Left Finger] Pulse Strength Pulse Strength [Left Finger] Respiratory Rate 19 23 10 L Respiratory Effort / Characteristics Non-Labored Respiratory Depth Normal Respiratory Pattern Regular Blood Pressure 147/70 H Blood Pressure [Left Arm] 147/70 H Blood Pressure Mean 95 Blood Pressure Mean [Left Arm] 95 Blood Pressure Position Blood Pressure Position [Left Arm] Pulse Oximetry 96 89 L 90 Oxygen Delivery Method Room Air 11/06/18 18:40 11/06/18 18:45 11/06/18 18:50 Temperature Temperature Source Sepsis Recent Fever Within 48 Hours Sepsis New/Unexplained Change in Mental Status Sepsis Action Taken by Nursing Pulse Rate 66 75 70 Pulse Rate [Left Finger] Pulse Rate from SpO2 Sensor 72 69 69 Pulse Rhythm Pulse Rhythm [Left Finger] Pulse Strength Pulse Strength [Left Finger] Respiratory Rate 22 20 18 Respiratory Effort / Characteristics Respiratory Depth Respiratory Pattern Blood Pressure Blood Pressure [Left Arm] Blood Pressure Mean Blood Pressure Mean [Left Arm] Blood Pressure Position Blood Pressure Position [Left Arm] Pulse Oximetry 91 90 92 Oxygen Delivery Method 11/06/18 18:55 11/06/18 19:10 11/06/18 19:15 Temperature Temperature Source Sepsis Recent Fever Within 48 Hours Sepsis New/Unexplained Change in Mental Status Sepsis Action Taken by Nursing Pulse Rate 70 73 73 Pulse Rate [Left Finger] Pulse Rate from SpO2 Sensor 70 Pulse Rhythm Pulse Rhythm [Left Finger] Pulse Strength Pulse Strength [Left Finger] Respiratory Rate 21 20 18 Respiratory Effort / Characteristics Respiratory Depth Respiratory Pattern Blood Pressure 161/72 H Blood Pressure [Left Arm] Blood Pressure Mean 101 Blood Pressure Mean [Left Arm] Blood Pressure Position Blood Pressure Position [Left Arm] Pulse Oximetry 94 Oxygen Delivery Method 11/06/18 19:20 11/06/18 19:25 11/06/18 19:30 Temperature Temperature Source Sepsis Recent Fever Within 48 Hours Sepsis New/Unexplained Change in Mental Status Sepsis Action Taken by Nursing Pulse Rate 73 72 70 Pulse Rate [Left Finger] Pulse Rate from SpO2 Sensor 71 70 Pulse Rhythm Pulse Rhythm [Left Finger] Pulse Strength Pulse Strength [Left Finger] Respiratory Rate 15 28 H 19 Respiratory Effort / Characteristics Respiratory Depth Respiratory Pattern Blood Pressure 144/75 H Blood Pressure [Left Arm] Blood Pressure Mean 98 Blood Pressure Mean [Left Arm] Blood Pressure Position Blood Pressure Position [Left Arm] Pulse Oximetry 96 95 Oxygen Delivery Method 11/06/18 19:34 11/06/18 19:35 11/06/18 19:40 Temperature Temperature Source Sepsis Recent Fever Within 48 Hours Sepsis New/Unexplained Change in Mental Status Sepsis Action Taken by Nursing Pulse Rate 70 75 Pulse Rate [Left Finger] 70 Pulse Rate from SpO2 Sensor 70 66 Pulse Rhythm Pulse Rhythm [Left Finger] Regular Pulse Strength Pulse Strength [Left Finger] Respiratory Rate 20 21 15 Respiratory Effort / Characteristics Non-Labored Respiratory Depth Normal Respiratory Pattern Regular Blood Pressure Blood Pressure [Left Arm] 144/75 H Blood Pressure Mean Blood Pressure Mean [Left Arm] 98 Blood Pressure Position Blood Pressure Position [Left Arm] Pulse Oximetry 95 95 96 Oxygen Delivery Method Room Air 11/06/18 19:45 11/06/18 19:50 11/06/18 19:55 Temperature Temperature Source Sepsis Recent Fever Within 48 Hours Sepsis New/Unexplained Change in Mental Status Sepsis Action Taken by Nursing Pulse Rate 76 71 70 Pulse Rate [Left Finger] Pulse Rate from SpO2 Sensor 76 71 71 Pulse Rhythm Pulse Rhythm [Left Finger] Pulse Strength Pulse Strength [Left Finger] Respiratory Rate 16 20 10 L Respiratory Effort / Characteristics Respiratory Depth Respiratory Pattern Blood Pressure Blood Pressure [Left Arm] Blood Pressure Mean Blood Pressure Mean [Left Arm] Blood Pressure Position Blood Pressure Position [Left Arm] Pulse Oximetry 93 95 95 Oxygen Delivery Method 11/06/18 20:00 11/06/18 20:05 11/06/18 20:10 Temperature Temperature Source Sepsis Recent Fever Within 48 Hours Sepsis New/Unexplained Change in Mental Status Sepsis Action Taken by Nursing Pulse Rate 70 72 70 Pulse Rate [Left Finger] Pulse Rate from SpO2 Sensor 70 72 69 Pulse Rhythm Pulse Rhythm [Left Finger] Pulse Strength Pulse Strength [Left Finger] Respiratory Rate 15 21 16 Respiratory Effort / Characteristics Respiratory Depth Respiratory Pattern Blood Pressure 125/57 L Blood Pressure [Left Arm] Blood Pressure Mean 79 Blood Pressure Mean [Left Arm] Blood Pressure Position Blood Pressure Position [Left Arm] Pulse Oximetry 95 95 95 Oxygen Delivery Method 11/06/18 20:15 11/06/18 20:17 11/06/18 20:18 Temperature Temperature Source Sepsis Recent Fever Within 48 Hours Sepsis New/Unexplained Change in Mental Status Sepsis Action Taken by Nursing Pulse Rate 70 70 Pulse Rate [Left Finger] 70 Pulse Rate from SpO2 Sensor 70 70 Pulse Rhythm Pulse Rhythm [Left Finger] Regular Pulse Strength Pulse Strength [Left Finger] Normal Respiratory Rate 13 18 17 Respiratory Effort / Characteristics Non-Labored Spontaneous Respiratory Depth Normal Respiratory Pattern Regular Blood Pressure 129/66 Blood Pressure [Left Arm] 129/66 Blood Pressure Mean 87 Blood Pressure Mean [Left Arm] 87 Blood Pressure Position Blood Pressure Position [Left Arm] Sitting Pulse Oximetry 96 95 95 Oxygen Delivery Method Room Air 11/06/18 20:20 11/06/18 20:23 Temperature Temperature Source Sepsis Recent Fever Within 48 Hours Sepsis New/Unexplained Change in Mental Status Sepsis Action Taken by Nursing Pulse Rate 70 70 Pulse Rate [Left Finger] Pulse Rate from SpO2 Sensor 70 Pulse Rhythm Pulse Rhythm [Left Finger] Pulse Strength Pulse Strength [Left Finger] Respiratory Rate 13 16 Respiratory Effort / Characteristics Respiratory Depth Respiratory Pattern Blood Pressure 129/66 Blood Pressure [Left Arm] Blood Pressure Mean Blood Pressure Mean [Left Arm] Blood Pressure Position Blood Pressure Position [Left Arm] Pulse Oximetry 95 96 Oxygen Delivery Method Room Air Home Medications Current Medication List: was personally reviewed by me Laboratory Data Attestation: I reviewed the patient's lab results. Result diagrams: 11/06/18 17:45 11/06/18 17:45 Lab Results 11/06/18 11/06/18 11/06/18 Range/Units 17:45 17:45 17:45 WBC 8.48 (4.8-10.8) K/uL RBC 5.10 (4.7-6.1) M/uL Hgb 17.1 (14.0-18.0) g/dL Hct 48.7 (42-52) % MCV 95.5 (80-100) fL MCH 33.5 (25-34) pg MCHC 35.1 (32-36) g/dL RDW Std Deviation 51.2 H (36.4-46.3) fL RDW Coeff of Sawyer 14.6 H (11.5-14.5) % Plt Count 215 (130-400) K/uL MPV 10.1 (7.4-10.4) fL Immature Gran % (Auto) 0.4 % Neut % (Auto) 72.7 % Lymph % (Auto) 15.4 % Reeves % (Auto) 9.4 % Eos % (Auto) 1.9 % Baso % (Auto) 0.2 % Immature Gran # (Auto) 0.03 H (0.00-0.02) K/uL Neut # (Auto) 6.16 (1.4-6.5) K/uL Lymph # (Auto) 1.31 (1.2-3.4) K/uL Reeves # (Auto) 0.80 H (0.11-0.59) K/uL Eos # (Auto) 0.16 (0-0.5) K/uL Baso # (Auto) 0.02 (0-0.2) K/uL PT 30.3 H (9.0-12.0) Seconds INR 3.2 H (0.9-1.1) Sodium 137 (136-145) mmol/L Potassium 3.9 (3.5-5.1) mmol/L Chloride 102 (98-107) mmol/L Carbon Dioxide 29 (21-32) mmol/L Anion Gap 6.0 (3-11) BUN 26 H (7-18) mg/dl Creatinine 1.29 (0.6-1.4) mg/dl Est Cr Clr Drug Dosing 42.0 ml/min Est GFR ( Amer) 59.0 Est GFR (Non-Af Amer) 50.9 BUN/Creatinine Ratio 19.8 (10-20) Glucose 162 H (70-99) mg/dl Calcium 9.1 (8.5-10.1) mg/dl Phosphorus 2.2 L (2.5-4.9) mg/dl Magnesium 2.2 (1.8-2.4) mg/dl Total Bilirubin 0.9 (0.2-1) mg/dl AST 31 (15-37) U/L ALT 23 (12-78) U/L Alkaline Phosphatase 61 (45-117) U/L Total Protein 8.1 (6.4-8.2) gm/dl Albumin 4.1 (3.4-5.0) gm/dl Globulin 4.0 (2.5-4.0) gm/dl Albumin/Globulin Ratio 1.0 (0.9-2) Lipase 108 (73-393) U/L Specimen Hemolysis 11/06/18 Range/Units 17:45 WBC (4.8-10.8) K/uL RBC (4.7-6.1) M/uL Hgb (14.0-18.0) g/dL Hct (42-52) % MCV (80-100) fL MCH (25-34) pg MCHC (32-36) g/dL RDW Std Deviation (36.4-46.3) fL RDW Coeff of Sawyer (11.5-14.5) % Plt Count (130-400) K/uL MPV (7.4-10.4) fL Immature Gran % (Auto) % Neut % (Auto) % Lymph % (Auto) % Reeves % (Auto) % Eos % (Auto) % Baso % (Auto) % Immature Gran # (Auto) (0.00-0.02) K/uL Neut # (Auto) (1.4-6.5) K/uL Lymph # (Auto) (1.2-3.4) K/uL Reeves # (Auto) (0.11-0.59) K/uL Eos # (Auto) (0-0.5) K/uL Baso # (Auto) (0-0.2) K/uL PT (9.0-12.0) Seconds INR (0.9-1.1) Sodium (136-145) mmol/L Potassium (3.5-5.1) mmol/L Chloride (98-107) mmol/L Carbon Dioxide (21-32) mmol/L Anion Gap (3-11) BUN (7-18) mg/dl Creatinine (0.6-1.4) mg/dl Est Cr Clr Drug Dosing ml/min Est GFR ( Amer) Est GFR (Non-Af Amer) BUN/Creatinine Ratio (10-20) Glucose (70-99) mg/dl Calcium (8.5-10.1) mg/dl Phosphorus Cancelled (2.5-4.9) mg/dl Magnesium Cancelled (1.8-2.4) mg/dl Total Bilirubin (0.2-1) mg/dl AST (15-37) U/L ALT (12-78) U/L Alkaline Phosphatase (45-117) U/L Total Protein (6.4-8.2) gm/dl Albumin (3.4-5.0) gm/dl Globulin (2.5-4.0) gm/dl Albumin/Globulin Ratio (0.9-2) Lipase (73-393) U/L Specimen Hemolysis Administered Medications Atorvastatin Calcium (Lipitor) 10 mg PO HS [facility] Stop: 12/06/18 20:59 Last Admin: 11/07/18 00:04 Dose: 10 mg Documented by: [id number] Carvedilol (Coreg) 6.25 mg PO PM [facility] Stop: 12/06/18 20:59 Last Admin: 11/07/18 00:04 Dose: 6.25 mg Documented by: [id number] Finasteride (Proscar) 5 mg PO QPM [facility] Stop: 12/06/18 20:59 Last Admin: 11/07/18 00:04 Dose: 5 mg Documented by: [id number] Fluticasone Propionate (Flonase) 1 sprays NA BID [facility] Stop: 12/06/18 20:59 Last Admin: 11/07/18 00:03 Dose: 1 sprays Documented by: [id number] Cefazolin Sodium (Ancef 1000mg) 1,000 mg in 7.5 mls @ 2.5 mls/min IV Q8H [facility]; Protocol Stop: 11/17/18 03:59 Last Admin: 11/07/18 03:21 Dose: 2.5 mls/min Documented by: [id number] Sodium Chloride (Nss 1000ml) 1,000 mls @ 50 mls/hr IV .Q20H [facility] Stop: 12/06/18 23:44 Last Admin: 11/06/18 23:50 Dose: 50 mls/hr Documented by: [id number] Wardaneous (Order Awaiting Action) 1 ea N/A QS [facility] Stop: 12/07/18 00:00 Last Admin: 11/07/18 00:05 Dose: Not Given Documented by: [id number] Miscellaneous (Order Awaiting Action) 1 ea N/A QS [facility] Stop: 12/07/18 00:00 Last Admin: 11/07/18 00:05 Dose: Not Given Documented by: [id number] Discontinued Medications Acetaminophen (Ofirmev) Confirm Administered Dose 1,000 mg IV .STK-MED ONE Stop: 11/06/18 22:23 Last Admin: 11/06/18 23:28 Dose: Not Given Documented by: [id number] Bupivacaine HCl (Marcaine 0.5% Mpf) Confirm Administered Dose 30 ml .ROUTE .STK- MED ONE Stop: 11/06/18 19:24 Last Admin: 11/06/18 21:51 Dose: 7 ml Documented by: [id number] Cefazolin Sodium (Ancef) Confirm Administered Dose 1,000 mg .ROUTE .STK-MED ONE Stop: 11/06/18 19:24 Last Admin: 11/06/18 21:51 Dose: 1,000 mg Documented by: [id number] Hydromorphone HCl (Dilaudid) 0.5 mg IV Q15M PRN PRN Reason: Pain Stop: 11/20/18 18:15 Last Admin: 11/06/18 18:28 Dose: 0.5 mg Documented by: [id number] Sodium Chloride (Nss 1000ml) 1,000 mls @ 125 mls/hr IV .Q8H [facility] Stop: 11/07/18 02:15 Last Infusion: 11/07/18 00:06 Dose: 0 mls/hr Documented by: [id number] Admin: 11/06/18 18:28 Dose: 125 mls/hr Documented by: [id number] Phytonadione 10 mg/ Sodium (Chloride) 51 mls @ 102 mls/hr IV ONE ONE Stop: 11/06/18 19:49 Last Infusion: 11/06/18 20:22 Dose: 0 mls/hr Documented by: [id number] Admin: 11/06/18 19:29 Dose: 102 mls/hr Documented by: [id number] Prothrombin Complex Concent ( (Human) 2,000 units/ Syringe) 80 mls @ 10 mls/min IV TODAY@1915 ONE; Protocol Stop: 11/06/18 19:22 Last Admin: 11/06/18 20:02 Dose: 10 mls/min Documented by: [id number] Cefazolin Sodium (Ancef 2000mg) 2,000 mg in 15 mls @ 3.75 mls/min IV PREOP ONE Stop: 11/06/18 21:36 Last Admin: 11/06/18 21:20 Dose: 3.75 mls/min Documented by: [id number] Acetaminophen (Ofirmev) 1,000 mg in 100 mls @ 400 mls/hr IV NOW STA Stop: 11/06/18 22:07 Last Admin: 11/06/18 23:29 Dose: Not Given Documented by: [id number] Lidocaine HCl (Xylocaine 1% (Local)) Confirm Administered Dose 20 ml .ROUTE .STK-MED ONE Stop: 11/06/18 19:24 Last Admin: 11/06/18 21:51 Dose: Not Given Documented by: [id number] Ondansetron HCl (Zofran) 4 mg IV NOW STA Stop: 11/06/18 18:17 Last Admin: 11/06/18 18:28 Dose: 4 mg Documented by: [id number] Imaging Data Radiologist's Impression: Radiology results as stated below per my review and the radiologist's interpretation: ABDOMEN AND PELVIS CT WITHOUT CONTRAST CT DOSE: 315.80 mGy.cm HISTORY: Acute right lower quadrant abdominal pain incarc. right inguinal hernia TECHNIQUE: Multiaxial CT images of the abdomen and pelvis were performed without contrast. A dose lowering technique was utilized adhering to the principles of ALARA. COMPARISON STUDY: CT abdomen and pelvis / FINDINGS: Partially imaged 8 mm solid nodule of the lateral segment right middle lobe. Subpleural bibasilar reticulation compatible with fibrotic changes. Mild subpleural cystic change. No pneumatosis or pneumoperitoneum. Cardiomegaly. Partially imaged aortic endograft. Prior median sternotomy. Spleen, liver, gallbladder, pancreas and adrenal glands appear unremarkable. 1.7 cm slightly exophytic lesion about the interpolar right kidney demonstrates intermediate attenuation, unchanged in size from comparison and possibly reflective of a complex renal cyst. Nonspecific bilateral perinephric stranding. Prostamegaly. Unremarkable urinary bladder. 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 No adenopathy. Extensive colonic diverticulosis without acute diverticulitis. Right inguinal hernia redemonstrated containing mesenteric fat and a loop of fluid-filled dilated ileum. Dilated fluid-filled ileum noted proximal to this measures 3.4 cm transversely. Appendix appears normal. Soft tissues are unremarkable. Bones appear to be intact. Degenerative changes of the spine, pelvis and hips. Multiple remote compression deformities are redemonstrated with 50% superior endplate compression deformity at L2 without retropulsion is new from comparison. IMPRESSION: 1. Bowel and fluid-filled right inguinal hernia redemonstrated resulting in a small bowel obstruction. No significant bowel wall thickening, pneumatosis or pneumoperitoneum. 2. Extensive colonic diverticulosis without acute diverticulitis. 3. Prostamegaly. 4. Age-indeterminate 50% superior endplate compression deformity at L2 without retropulsion is new from 10/25/2017. Correlate clinically. 5. Additional findings as above. Electronically signed by: Remy Kaur M.D. 11/06/2018 7:21 PM ECG Data Attestation: I personally reviewed and interpreted this ECG as follows: Indication: abdominal pain Rate (beats per minute): 70 Rhythm: other (V-Paced ) Findings: no PAC and no PVC Blood Pressure Blood Pressure Findings: Elevated blood pressure Blood Pressure Disposition: further management by hospitalist Discharge Plan Visit Data *Final* Discharge Date/Time: 11/06/18 20:28 Chief Complaint: Groin Pain Stated Complaint: HERNIA ED Provider: Scooby Llamas Discharge Problem: Incarcerated right inguinal hernia Patient Disposition: Still a Patient Discharge Instructions Interventions: ED Discharge Assessment Last Done: 11/06/18 20:23 The scribe's documentation has been prepared under my direction and personally reviewed by me in its entirety. I confirm that the note above accurately reflects all work, treatment, procedures, and medical decision making performed by me.
[2018-11-07 05:33] LABS: Basophils # (auto) 0.02 K/uL (0-0.2); Basophils % (auto) 0.2 %; Eosinophils # (auto) 0.15 K/uL (0-0.5); Eosinophils % (auto) 1.6 %; Hematocrit (blood only) 44.3 % (42-52); Hemoglobin 15.1 g/dL (14.0-18.0); Immature Granulocytes # (auto) 0.02 K/uL (0.00-0.02); Immature Granulocytes % (auto) 0.2 %; Lymphocytes # (auto) 1.54 K/uL (1.2-3.4); Lymphocytes % (auto) 16.4 %; Mean Corpuscular Hgb Conc 34.1 g/dL (32-36); Mean Corpuscular Volume 94.9 fL (80-100); Mean Platelet Volume 9.6 fL (7.4-10.4); Monocytes # (auto) 0.93 K/uL (0.11-0.59); Monocytes % (auto) 9.9 %; Neutrophils # (auto) 6.75 K/uL (1.4-6.5); Neutrophils % (auto) 71.7 %; Platelet Count 171 K/uL (130-400); RDW Coefficient of Variation 14.7 % (11.5-14.5); RDW Standard Deviation 50.9 fL (36.4-46.3); Red Blood Count 4.67 M/uL (4.7-6.1); White Blood Count 9.41 K/uL (4.8-10.8)
[2018-11-07 05:59] LABS: BUN Creatinine Ratio 20.8 (10-20); Calcium 8.2 mg/dl (8.5-10.1); Creatinine Clr Calc Pharmacy 51.2 ml/min; Est GFR (African American) 76.6; Est GFR (Non-African American) 66.1; Potassium 4.2 mmol/L (3.5-5.1)
[2018-11-07] MEDS: DOCUSATE SODIUM/SENNA 50/8.6MG TAB PO SCH ×2 (07:28→20:40)
[2018-11-07] MEDS: ISOSORBIDE MONO EXTENDED REL 60 MG TABCR PO SCH (07:28)
[2018-11-07] MEDS: PANTOprazole 40 MG TAB PO SCH (07:28)
--- NOTE | 2018-11-07 07:33 | Progress Note ---
Date of Service November 07, 2018 Assessment & Plan (1) Incarcerated right inguinal hernia: pt with some oozing overnight- wound and around [place]. INR pending- dressing removed-min hematoma and no active drainage- may need additional FFP/meds if INR high and bleeding evident- NO LOVENOX will need 1-3 days in hospital even though he wants to go home Subjective see a/p Results & Data Vital Signs (Past 12 Hours) Vital Signs Temp Pulse Pulse Resp BP BP Pulse Ox 11/07/18 07:12 36.5 C 70 18 149/61 H 98 11/07/18 03:45 36.9 C 70 18 134/74 98 11/07/18 02:45 37 C 70 18 137/68 97 11/07/18 01:45 37 C 70 18 137/80 98 11/07/18 00:47 70 11/07/18 00:45 36.8 C 70 18 150/80 H 99 11/07/18 00:15 36.8 C 70 18 154/72 H 99 11/06/18 23:45 37 C 70 18 153/84 H 98 11/06/18 23:30 36.7 C 70 18 156/71 H 100 11/06/18 23:15 37.0 C 72 18 160/75 H 97 11/06/18 22:56 36.7 C 70 16 156/67 H 100 11/06/18 22:45 70 155/73 H 100 11/06/18 22:40 70 155/73 H 100 11/06/18 22:35 70 158/76 H 100 11/06/18 22:30 70 156/75 H 11/06/18 22:25 70 143/80 H 98 11/06/18 22:21 70 158/75 H 100 11/06/18 22:20 70 100 11/06/18 22:15 70 156/76 H 100 11/06/18 22:12 71 11/06/18 22:10 36.0 C L 71 71 18 159/78 H 159/78 H 100 11/06/18 20:23 70 16 129/66 96 11/06/18 20:20 70 13 95 11/06/18 20:18 70 17 129/66 95 11/06/18 20:17 70 18 129/66 95 11/06/18 20:15 70 13 96 11/06/18 20:10 70 16 95 11/06/18 20:05 72 21 95 11/06/18 20:00 70 15 125/57 L 95 11/06/18 19:55 70 10 L 95 11/06/18 19:50 71 20 95 11/06/18 19:45 76 16 93 11/06/18 19:40 75 15 96 11/06/18 19:35 70 21 95 11/06/18 19:34 70 20 144/75 H 95
[2018-11-07 08:10] LABS: INR 1.1 (0.9-1.1); Prothrombin Time 11.4 Seconds (9.0-12.0)
--- NOTE | 2018-11-07 10:10 | Anesthesiology Progress Note ---
Date of Service November 07, 2018 Anesthesia Post Procedure Vital Signs Vital Signs: Temp Pulse Pulse Resp BP BP Pulse Ox 11/07/18 07:12 36.5 C 70 18 149/61 H 98 11/07/18 03:45 36.9 C 70 18 134/74 98 11/07/18 02:45 37 C 70 18 137/68 97 11/07/18 01:45 37 C 70 18 137/80 98 11/07/18 00:47 70 11/07/18 00:45 36.8 C 70 18 150/80 H 99 11/07/18 00:15 36.8 C 70 18 154/72 H 99 11/06/18 23:45 37 C 70 18 153/84 H 98 11/06/18 23:30 36.7 C 70 18 156/71 H 100 11/06/18 23:15 37.0 C 72 18 160/75 H 97 11/06/18 22:56 36.7 C 70 16 156/67 H 100 11/06/18 22:45 70 155/73 H 100 11/06/18 22:40 70 155/73 H 100 11/06/18 22:35 70 158/76 H 100 11/06/18 22:30 70 156/75 H 11/06/18 22:25 70 143/80 H 98 11/06/18 22:21 70 158/75 H 100 11/06/18 22:20 70 100 11/06/18 22:15 70 156/76 H 100 11/06/18 22:12 71 11/06/18 22:10 36.0 C L 71 71 18 159/78 H 159/78 H 100 11/06/18 20:23 70 16 129/66 96 11/06/18 20:20 70 13 11/06/18 20:18 70 17 129/66 95 11/06/18 20:17 70 18 129/66 95 11/06/18 20:15 70 13 11/06/18 20:10 70 16 11/06/18 20:05 72 21 11/06/18 20:00 70 15 125/57 L 11/06/18 19:55 70 10 L 11/06/18 19:50 71 20 11/06/18 19:45 76 16 93 11/06/18 19:40 75 15 96 11/06/18 19:35 70 21 95 11/06/18 19:34 70 20 144/75 H 95 11/06/18 19:30 70 19 144/75 H 95 11/06/18 19:25 72 28 H 96 11/06/18 19:20 73 15 11/06/18 19:15 73 18 11/06/18 19:10 73 20 161/72 H 11/06/18 18:55 70 21 94 11/06/18 18:50 70 18 92 11/06/18 18:45 75 20 90 11/06/18 18:40 66 22 91 11/06/18 18:35 73 10 L 90 11/06/18 18:30 70 70 23 147/70 H 147/70 H 89 L 11/06/18 18:25 70 19 96 11/06/18 18:20 71 22 95 11/06/18 18:17 73 23 95 11/06/18 18:13 70 18 166/91 H 98 11/06/18 18:11 97 11/06/18 18:10 70 19 166/91 H 95 11/06/18 16:58 36.5 C 71 20 148/79 H 96 Pain Intensity Right Groin: Pain Intensity: 3 Transfer of Care Handoff Completed per policy Notes Mental Status: alert / awake / arousable and participated in evaluation Patient Amnestic to Procedure: Yes Nausea / Vomiting: adequately controlled Pain: adequately controlled Airway Patency, RR, SpO2: stable & adequate BP & HR: stable & adequate Hydration State: stable & adequate Anesthetic Complications: no major complications apparent and Pt Satisfied with anesthetic care
--- NOTE | 2018-11-07 11:00 | Hospitalist Progress Note ---
Date of Service November 07, 2018 Assessment & Plan (1) Incarcerated right inguinal hernia: - CT showed bowel and fluid filled right inguinal hernia resulting in SBO. - S/p right inguinal hernia and femoral hernia repair on 11/06/18, POD#1. - General surgery following, appreciate input. - Pain meds prn -- has not been requiring frequent doses. - Holding home Coumadin in setting of recent procedure, restart anticoagulation per surgery. - Continue bowel regimen. - H/o CAD, CHF, Prior TIA -- RCRI risk for luzmaria-op MACE, monitoring cardiac enzymes as noted below. 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 - Most recent cardiac cath in 2017, patent grafts noted. - Currently denies cardiac symptoms; EKG was negative, continue lunchroom monitor. - Trending trop levels due to risk of post op MACE -- elevated at 0.061, will repeat q6hr. - Holding aspirin, will resume per surgery. - Continue statin, Imdur and Coreg as prescribed; will resume Losartan as renal function is stable POD#1. - Holding home Lasix -- will resume on 11/08/18 pending renal function/volume status. (3) Chronic systolic heart failure: - Most recent TTE in 2017 showed EF 45%, dilated left and right atrium, valvular disease and moderate LVH. - Currently appears well compensated, no evidence of acute failure. - Continue home Coreg, Imdur and Losartan; holding Lasix in post op setting. - Monitor I/Os and daily weights -- will likely need to resume diuresis on 11/08/18. (4) Aortic valve replaced: - S/p TAVR at [facility] in July 2018. - Valvular disease as noted below. (5) Hypertension: - Continue Coreg, Imdur as prescribed. Resuming Losartan post op. - Holding Lasix, will monitor. (6) Hyperlipidemia: - Continue statin as prescribed. (7) Atrial fibrillation: - Currently paced on lunchroom monitor; continue coreg as prescribed. - Required reversal of INR at admission for procedure, INR was 1.0 today. - Resume Coumadin per surgery. (8) Pacemaker: - S/p dual chamber pacemaker with defibrillator due to ischemic cardiomyopathy. (9) Valvular heart disease: - Noted on most recent echo in 2017; mild AR, mild , moderate MR, mild TR. - Follows with cardiology. (10) DVT prophylaxis: - SCDs; holding pharmacologic ppx, resume per surgery. Dispo: PCU/ tele for post op monitoring. Supervising Physician Co-Signing Physician Notes PA Supervision Note: I did not personally see or examine the patient today, but I verified all pedroza points of CANDACE Spears's assessment and plan with the following exceptions/additions: None Subjective Pt. is doing well overall. Denies abd pain, N/V. Is not passing gas, has not had a BM. Diet currently NPO - will advance to regular diet with lunch if repeat Trop is negative. Review of Systems Review of Systems: All systems reviewed & are unremarkable except as noted in HPI & below Constitutional: no fever, no chills, no fatigue, no weakness and no anorexia Respiratory: no cough, no dyspnea, no dyspnea on exertion and no wheezing Cardiovascular: no chest pain, no palpitations and no edema Gastrointestinal: + constipation; no abdominal pain, no nausea and no vomiting Genitourinary: no difficulty urinating Musculoskeletal: no back pain and no joint pain Integumentary: no non-healing lesions Physical Exam Physical Exam: General: Resting comfortably HEENT: NC/AT; PERRLA with EOMI; [place] conjunctiva, MMM. No erythema of posterior pharynx Neck: Supple and nontender Cardiac: RRR Lungs: CTA bilaterally; No rhonchi, wheezing, or rales Abdomen: Dressing in place with no drainage noted but was recently changed prior to exam; Bowel normoactive X 4; Nontender to palp Extremities: Warm. No edema present Neuro: No focal weakness Skin: No rash Results & Data Vital Signs (Past 12 Hours) Vital Signs Temp Pulse Pulse Resp BP BP Pulse Ox 11/07/18 07:12 36.5 C 70 18 149/61 H 98 11/07/18 03:45 36.9 C 70 18 134/74 98 11/07/18 02:45 37 C 70 18 137/68 97 11/07/18 01:45 37 C 70 18 137/80 98 11/07/18 00:47 70 11/07/18 00:45 36.8 C 70 18 150/80 H 99 11/07/18 00:15 36.8 C 70 18 154/72 H 99 11/06/18 23:45 37 C 70 18 153/84 H 98 11/06/18 23:30 36.7 C 70 18 156/71 H 100 11/06/18 23:15 37.0 C 72 18 160/75 H 97 11/06/18 22:56 36.7 C 70 16 156/67 H 100 11/06/18 22:45 70 155/73 H 100 Laboratory Results 11/07/18 11/07/18 11/07/18 Range/Units 07:36 05:21 05:21 WBC (4.8-10.8) K/uL RBC (4.7-6.1) M/uL Hgb (14.0-18.0) g/dL Hct (42-52) % MCV (80-100) fL MCH (25-34) pg MCHC (32-36) g/dL RDW Std Deviation (36.4-46.3) fL RDW Coeff of [place] (11.5-14.5) % Plt Count (130-400) K/uL MPV (7.4-10.4) fL Immature Gran % (Auto) % Neut % (Auto) % Lymph % (Auto) % [place] % (Auto) % Eos % (Auto) % Baso % (Auto) % Immature Gran # (Auto) (0.00-0.02) K/uL Neut # (Auto) (1.4-6.5) K/uL Lymph # (Auto) (1.2-3.4) K/uL [place] # (Auto) (0.11-0.59) K/uL Eos # (Auto) (0-0.5) K/uL Baso # (Auto) (0-0.2) K/uL PT 11.4 (9.0-12.0) Seconds INR 1.1 (0.9-1.1) Sodium 140 (136-145) mmol/L Potassium 4.2 (3.5-5.1) mmol/L Chloride 106 (98-107) mmol/L Carbon Dioxide 30 (21-32) mmol/L Anion Gap 4.0 (3-11) BUN 22 H (7-18) mg/dl Creatinine 1.04 (0.6-1.4) mg/dl Est Cr Clr Drug Dosing 51.2 ml/min Est GFR ( Amer) 76.6 Est GFR (Non-Af Amer) 66.1 BUN/Creatinine Ratio 20.8 H (10-20) Glucose 81 (70-99) mg/dl Calcium 8.2 L (8.5-10.1) mg/dl Phosphorus (2.5-4.9) mg/dl Magnesium (1.8-2.4) mg/dl Total Bilirubin (0.2-1) mg/dl AST (15-37) U/L ALT (12-78) U/L Alkaline Phosphatase (45-117) U/L Troponin I 0.061 H* (0-0.045) ng/ml Total Protein (6.4-8.2) gm/dl Albumin (3.4-5.0) gm/dl Globulin (2.5-4.0) gm/dl Albumin/Globulin Ratio (0.9-2) Lipase (73-393) U/L Specimen Hemolysis Urine Color Urine Appearance (Clear) Urine pH (4.5-7.5) Ur Specific [place] (1.000-1.030) Urine Protein (Negative) Urine Glucose (UA) (Negative) Urine Ketones (Negative) Urine Blood (Negative) Urine Nitrite (Negative) Urine Bilirubin (Negative) Urine Urobilinogen (Negative) Ur Leukocyte Esterase (Negative) Urine WBC (Auto) (0-5) /hpf Urine RBC (Auto) (0-4) /hpf U Hyaline Cast (Auto) (0-5) /lpf U Epithel Cells (Auto) (0-5) /lpf Urine Bacteria (Auto) (Negative) Urine Yeast 11/07/18 11/07/18 11/06/18 Range/Units 05:21 02:50 17:45 WBC 9.41 (4.8-10.8) K/uL RBC 4.67 L (4.7-6.1) M/uL Hgb 15.1 (14.0-18.0) g/dL Hct 44.3 (42-52) % MCV 94.9 (80-100) fL MCH 32.3 (25-34) pg MCHC 34.1 (32-36) g/dL RDW Std Deviation 50.9 H (36.4-46.3) fL RDW Coeff of [place] 14.7 H (11.5-14.5) % Plt Count 171 (130-400) K/uL MPV 9.6 (7.4-10.4) fL Immature Gran % (Auto) 0.2 % Neut % (Auto) 71.7 % Lymph % (Auto) 16.4 % [place] % (Auto) 9.9 % Eos % (Auto) 1.6 % Baso % (Auto) 0.2 % Immature Gran # (Auto) 0.02 (0.00-0.02) K/uL Neut # (Auto) 6.75 H (1.4-6.5) K/uL Lymph # (Auto) 1.54 (1.2-3.4) K/uL [place] # (Auto) 0.93 H (0.11-0.59) K/uL Eos # (Auto) 0.15 (0-0.5) K/uL Baso # (Auto) 0.02 (0-0.2) K/uL PT (9.0-12.0) Seconds INR (0.9-1.1) Sodium (136-145) mmol/L Potassium (3.5-5.1) mmol/L Chloride (98-107) mmol/L Carbon Dioxide (21-32) mmol/L Anion Gap (3-11) BUN (7-18) mg/dl Creatinine (0.6-1.4) mg/dl Est Cr Clr Drug Dosing ml/min Est GFR ( Amer) Est GFR (Non-Af Amer) BUN/Creatinine Ratio (10-20) Glucose (70-99) mg/dl Calcium (8.5-10.1) mg/dl Phosphorus Cancelled (2.5-4.9) mg/dl Magnesium Cancelled (1.8-2.4) mg/dl Total Bilirubin (0.2-1) mg/dl AST (15-37) U/L ALT (12-78) U/L Alkaline Phosphatase (45-117) U/L Troponin I (0-0.045) ng/ml Total Protein (6.4-8.2) gm/dl Albumin (3.4-5.0) gm/dl Globulin (2.5-4.0) gm/dl Albumin/Globulin Ratio (0.9-2) Lipase (73-393) U/L Specimen Hemolysis Urine Color Yellow Urine Appearance Cloudy A (Clear) Urine pH 5.0 (4.5-7.5) Ur Specific [place] 1.030 (1.000-1.030) Urine Protein Negative (Negative) Urine Glucose (UA) Negative (Negative) Urine Ketones Trace H (Negative) Urine Blood 3+ H (Negative) Urine Nitrite Negative (Negative) Urine Bilirubin Negative (Negative) Urine Urobilinogen Negative (Negative) Ur Leukocyte Esterase Negative (Negative) Urine WBC (Auto) 1-5 (0-5) /hpf Urine RBC (Auto) >30 H (0-4) /hpf U Hyaline Cast (Auto) 5-10 H (0-5) /lpf U Epithel Cells (Auto) 5-10 H (0-5) /lpf Urine Bacteria (Auto) Negative (Negative) Urine Yeast Not Reportable 11/06/18 11/06/18 11/06/18 Range/Units 17:45 17:45 17:45 WBC 8.48 (4.8-10.8) K/uL RBC 5.10 (4.7-6.1) M/uL Hgb 17.1 (14.0-18.0) g/dL Hct 48.7 (42-52) % MCV 95.5 (80-100) fL MCH 33.5 (25-34) pg MCHC 35.1 (32-36) g/dL RDW Std Deviation 51.2 H (36.4-46.3) fL RDW Coeff of [place] 14.6 H (11.5-14.5) % Plt Count 215 (130-400) K/uL MPV 10.1 (7.4-10.4) fL Immature Gran % (Auto) 0.4 % Neut % (Auto) 72.7 % Lymph % (Auto) 15.4 % [place] % (Auto) 9.4 % Eos % (Auto) 1.9 % Baso % (Auto) 0.2 % Immature Gran # (Auto) 0.03 H (0.00-0.02) K/uL Neut # (Auto) 6.16 (1.4-6.5) K/uL Lymph # (Auto) 1.31 (1.2-3.4) K/uL [place] # (Auto) 0.80 H (0.11-0.59) K/uL Eos # (Auto) 0.16 (0-0.5) K/uL Baso # (Auto) 0.02 (0-0.2) K/uL PT 30.3 H (9.0-12.0) Seconds INR 3.2 H (0.9-1.1) Sodium 137 (136-145) mmol/L Potassium 3.9 (3.5-5.1) mmol/L Chloride 102 (98-107) mmol/L Carbon Dioxide 29 (21-32) mmol/L Anion Gap 6.0 (3-11) BUN 26 H (7-18) mg/dl Creatinine 1.29 (0.6-1.4) mg/dl Est Cr Clr Drug Dosing 42.0 ml/min Est GFR ( Amer) 59.0 Est GFR (Non-Af Amer) 50.9 BUN/Creatinine Ratio 19.8 (10-20) Glucose 162 H (70-99) mg/dl Calcium 9.1 (8.5-10.1) mg/dl Phosphorus 2.2 L (2.5-4.9) mg/dl Magnesium 2.2 (1.8-2.4) mg/dl Total Bilirubin 0.9 (0.2-1) mg/dl AST 31 (15-37) U/L ALT 23 (12-78) U/L Alkaline Phosphatase 61 (45-117) U/L Troponin I (0-0.045) ng/ml Total Protein 8.1 (6.4-8.2) gm/dl Albumin 4.1 (3.4-5.0) gm/dl Globulin 4.0 (2.5-4.0) gm/dl Albumin/Globulin Ratio 1.0 (0.9-2) Lipase 108 (73-393) U/L Specimen Hemolysis Urine Color Urine Appearance (Clear) Urine pH (4.5-7.5) Ur Specific [place] (1.000-1.030) Urine Protein (Negative) Urine Glucose (UA) (Negative) Urine Ketones (Negative) Urine Blood (Negative) Urine Nitrite (Negative) Urine Bilirubin (Negative) Urine Urobilinogen (Negative) Ur Leukocyte Esterase (Negative) Urine WBC (Auto) (0-5) /hpf Urine RBC (Auto) (0-4) /hpf U Hyaline Cast (Auto) (0-5) /lpf U Epithel Cells (Auto) (0-5) /lpf Urine Bacteria (Auto) (Negative) Urine Yeast PG Care Time/CCT Total # of Minutes Spent Total Time Spent with Patient: Total time spent is greater than 50% in coordination of care (as documented) at patient's floor/unit and/or counseling patient: (1) CAD (coronary artery disease) Associated angina: without angina Coronary Disease-Associated Artery/Lesion type: [place] artery [place] vs. transplanted heart: [place] heart Qualified Code(s): I25.10 - Atherosclerotic heart disease of [place] coronary artery without angina pectoris (2) Atrial fibrillation Atrial fibrillation type: unspecified Qualified Code(s): I48.91 - Unspecified atrial fibrillation (3) Hyperlipidemia Hyperlipidemia type: unspecified Qualified Code(s): E78.5 - Hyperlipidemia, unspecified (4) Hypertension Hypertension type: essential hypertension Qualified Code(s): I10 - Essential (primary) hypertension
[2018-11-07] MEDS: LOSARTAN POTASSIUM 50 MG TAB PO SCH (11:32)
[2018-11-07] MEDS: SODIUM CHLORIDE 0.9% 1000ML 1,000 ML IV SCH (19:45)
[2018-11-08] MEDS: AZELASTINE~ORDER AWAITING ACTION SCH ×3 (01:27→17:00)
[2018-11-08] MEDS: RESTASIS~ORDER AWAITING ACTION SCH ×3 (01:27→17:00)
[2018-11-08] MEDS: CEFAZOLIN 1000MG 1,000 MG/7.5 ML SYR IV SCH ×3 (05:04→19:25)
[2018-11-08 06:21] LABS: Basophils # (auto) 0.01 K/uL (0-0.2); Basophils % (auto) 0.1 %; Eosinophils # (auto) 0.14 K/uL (0-0.5); Eosinophils % (auto) 1.3 %; Hematocrit (blood only) 43.1 % (42-52); Hemoglobin 14.5 g/dL (14.0-18.0); Immature Granulocytes # (auto) 0.03 K/uL (0.00-0.02); Immature Granulocytes % (auto) 0.3 %; Lymphocytes # (auto) 1.11 K/uL (1.2-3.4); Lymphocytes % (auto) 10.7 %; Mean Corpuscular Hgb Conc 33.6 g/dL (32-36); Mean Corpuscular Volume 96.6 fL (80-100); Mean Platelet Volume 9.9 fL (7.4-10.4); Monocytes # (auto) 1.18 K/uL (0.11-0.59); Monocytes % (auto) 11.3 %; Neutrophils # (auto) 7.93 K/uL (1.4-6.5); Neutrophils % (auto) 76.3 %; Platelet Count 171 K/uL (130-400); RDW Coefficient of Variation 14.6 % (11.5-14.5); RDW Standard Deviation 51.4 fL (36.4-46.3); Red Blood Count 4.46 M/uL (4.7-6.1)
[2018-11-08 06:31] LABS: Prothrombin Time 10.4 Seconds (9.0-12.0)
[2018-11-08 06:52] LABS: BUN Creatinine Ratio 16.3 (10-20); Calcium 8.1 mg/dl (8.5-10.1); Creatinine Clr Calc Pharmacy 53.2 ml/min; Est GFR (African American) 79.4; Est GFR (Non-African American) 68.5
--- NOTE | 2018-11-08 07:35 | Progress Note ---
Date of Service November 08, 2018 Assessment & Plan (1) Incarcerated right inguinal hernia: overall doing well- some bruising expected drain min could slowly restart coumadin No Lovenox prob needs 1-2 more days Subjective see a/p Results & Data Vital Signs (Past 12 Hours) Vital Signs Temp Pulse Resp BP Pulse Ox 11/08/18 03:06 36.9 C 70 18 155/66 H 94 11/07/18 23:21 37.2 C 70 17 136/64 95 11/07/18 20:01 36.5 C 72 18 133/64 96
[2018-11-08] MEDS: PANTOprazole 40 MG TAB PO SCH (08:27)
[2018-11-08] MEDS: ISOSORBIDE MONO EXTENDED REL 60 MG TABCR PO SCH ×2 (08:28→10:23)
[2018-11-08] MEDS: DOCUSATE SODIUM/SENNA 50/8.6MG TAB PO SCH ×2 (08:28→21:06)
[2018-11-08] MEDS: FLUTICASONE PROPIONATE NA SPR 16 GM BTL SCH ×2 (08:28→21:02)
[2018-11-08] MEDS: LOSARTAN POTASSIUM 50 MG TAB PO SCH (08:28)
--- NOTE | 2018-11-08 13:59 | Hospitalist Progress Note ---
Date of Service November 08, 2018 Assessment & Plan (1) Incarcerated right inguinal hernia: - CT showed bowel and fluid filled right inguinal hernia resulting in SBO. - S/p right inguinal hernia and femoral hernia repair on 11/06/18, POD#2. - General surgery following, appreciate input. - Pain meds prn -- has not been requiring frequent doses. - Will restart Coumadin 2.5mg today per general surgery recommendations. Recheck INR in AM. - Will restart ASA as well. - Continue bowel regimen. - H/o CAD, CHF, Prior TIA -- RCRI risk for luzmaria-op MACE, monitoring cardiac enzymes as noted below- Pt stable from cardiac standpoint. Will transfer to med/surg today. 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 - Most recent cardiac cath in 2017, patent grafts noted. - Currently denies cardiac symptoms; EKG was negative, continue monitoring specialist. - Trending trop levels due to risk of post op MACE --last troponin stable at 0.058. - ASA restarted. - Continue statin, Imdur and Coreg and Losartan. - Holding home Lasix -- weight stable, no SOB, no LLE edema-pt wishes to wait until tomorrow to restart Lasix as he is concerned about needing to void frequently on the medication. (3) Chronic systolic heart failure: - Most recent TTE in 2017 showed EF 45%, dilated left and right atrium, valvular disease and moderate LVH. - Currently appears well compensated, no evidence of acute failure. - Continue home Coreg, Imdur and Losartan; holding Lasix in post op setting. - Monitor I/Os and daily weights -- possibly resume Lasix tomorrow. -Pt tolerating PO. D/c IVF. (4) Aortic valve replaced: - S/p TAVR at [facility] in July 2018. - Valvular disease as noted below. (5) Hypertension: - Continue Coreg, Imdur and Losartan. - Holding Lasix, will monitor. (6) Hyperlipidemia: - Continue statin as prescribed. (7) Atrial fibrillation: - Currently paced on monitoring specialist; continue coreg as prescribed. - Required reversal of INR at admission for procedure, INR was 1.0 today. - Resume Coumadin 2.5mg today. (8) Pacemaker: - S/p dual chamber pacemaker with defibrillator due to ischemic cardiomyopathy. (9) Valvular heart disease: - Noted on most recent echo in 2017; mild AR, mild , moderate MR, mild TR. - Follows with cardiology. (10) DVT prophylaxis: - SCDs; holding pharmacologic ppx, resume per surgery. Dispo: PCU/ tele for post op monitoring. Supervising Physician Co-Signing Physician Notes SENIOR MATERIALS SCIENTIST Supervision Note: I personally saw and examined the patient. I verified all pedroza points and agree with SENIOR MATERIALS SCIENTIST Black with the following exceptions and/or additions: Pt pleased thathe voided after García removed. has some soreness in the rt inguinal region. Denies CP or SOB. Vitals reviewed Right inguinal region with dressing c/d/i; penis and right hemiscrotum with dark purple ecchymosis, mild edema Penis uncircumcised 83 yo male here with incarcerated RIH with SBO, now all resolved s/p surgery Doing well Subjective 83 yo male s/p right inguinal and femoral hernia repair for incarcerated hernia by Dr. Cho on 11-06-18. Pt denies f/c, n/v, chest pain, or SOB this afternoon. No cardiac events overnight; currently paced in the 70s. García catheter remains in place, but ordered to be discontinued today. Review of Systems Constitutional: no fever and no chills Eyes: no worsening vision Ear, Nose, Mouth, Throat: no dizziness Respiratory: no dyspnea Cardiovascular: no chest pain Gastrointestinal: + abdominal pain (incisional pain ) and + constipation; no nausea and no vomiting Genitourinary: no hematuria Psychiatric: no anxiety and no confusion Physical Exam Physical Exam: Temp Pulse Resp BP Pulse Ox 36.9 C 69 18 118/64 96 11/08/18 11:22 11/08/18 11:22 11/08/18 11:22 11/08/18 11:22 11/08/18 11:22 Pt is afebrile. Vital signs stable. Constitutional: average body habitus; no acute distress ENMT: Ears: no hearing impairment Neck: normal visual inspection Respiratory: normal respiratory effort, lungs clear to auscultation Cardiovascular: RRR, no murmur, no edema Gastrointestinal (Abdomen): Inspection/Auscultation: normal bowel sounds Percussion/Palpation: abdomen soft; abdomen nontender Surgical dressings c/d/i. Skin: no rashes, warm and dry Psychiatric: A+Ox3, euthymic affect Results & Data Vital Signs (Past 12 Hours) Vital Signs Temp Pulse Resp BP BP Pulse Ox 11/08/18 11:22 36.9 C 69 18 118/64 96 11/08/18 08:00 36.6 C 70 18 134/71 94 11/08/18 03:06 36.9 C 70 18 155/66 H 94 PG Care Time/CCT Total # of Minutes Spent Total Time Spent with Patient: Total time spent is greater than 50% in coordination of care (as documented) at patient's floor/unit and/or counseling patient: (1) CAD (coronary artery disease) Associated angina: without angina Coronary Disease-Associated Artery/Lesion type: [place] artery [place] vs. transplanted heart: [place] heart Qualified Code(s): I25.10 - Atherosclerotic heart disease of [place] coronary artery without angina pectoris (2) Atrial fibrillation Atrial fibrillation type: unspecified Qualified Code(s): I48.91 - Unspecified atrial fibrillation (3) Hyperlipidemia Hyperlipidemia type: unspecified Qualified Code(s): E78.5 - Hyperlipidemia, unspecified (4) Hypertension Hypertension type: essential hypertension Qualified Code(s): I10 - Essential (primary) hypertension
[2018-11-08] MEDS: SODIUM CHLORIDE 0.9% 1000ML 1,000 ML IV SCH (14:26)
[2018-11-08] MEDS ORDERED: WARFARIN SOD 2.5 MG TAB PO SCH (16:00)
[2018-11-08] MEDS ORDERED: ASPIRIN 81 MG ECTAB PO STA (18:04)
[2018-11-08] MEDS: CARVEDILOL 6.25 MG TAB PO SCH (21:02)
[2018-11-08] MEDS: ATORVASTATIN 10 MG TAB PO SCH (21:03)
[2018-11-08] MEDS: FINASTERIDE 5 MG TAB PO SCH (21:03)
[2018-11-09] MEDS: AZELASTINE~ORDER AWAITING ACTION SCH ×2 (00:38→08:15)
[2018-11-09] MEDS: RESTASIS~ORDER AWAITING ACTION SCH ×2 (00:39→08:16)
[2018-11-09] MEDS: CEFAZOLIN 1000MG 1,000 MG/7.5 ML SYR IV SCH ×2 (04:11→12:36)
[2018-11-09 06:35] LABS: Basophils # (auto) 0.02 K/uL (0-0.2); Basophils % (auto) 0.2 %; Eosinophils # (auto) 0.21 K/uL (0-0.5); Eosinophils % (auto) 2.3 %; Hematocrit (blood only) 39.5 % (42-52); Hemoglobin 13.5 g/dL (14.0-18.0); Immature Granulocytes # (auto) 0.02 K/uL (0.00-0.02); Immature Granulocytes % (auto) 0.2 %; Lymphocytes % (auto) 15.5 %; Mean Corpuscular Hgb Conc 34.2 g/dL (32-36); Mean Corpuscular Volume 96.1 fL (80-100); Mean Platelet Volume 9.7 fL (7.4-10.4); Monocytes # (auto) 1.02 K/uL (0.11-0.59); Monocytes % (auto) 11.3 %; Neutrophils # (auto) 6.38 K/uL (1.4-6.5); Neutrophils % (auto) 70.5 %; Platelet Count 156 K/uL (130-400); RDW Coefficient of Variation 14.8 % (11.5-14.5); RDW Standard Deviation 51.8 fL (36.4-46.3); Red Blood Count 4.11 M/uL (4.7-6.1); White Blood Count 9.05 K/uL (4.8-10.8)
[2018-11-09 06:42] LABS: Prothrombin Time 10.7 Seconds (9.0-12.0)
[2018-11-09 07:03] LABS: BUN Creatinine Ratio 14.6 (10-20); Calcium 8.3 mg/dl (8.5-10.1); Creatinine Clr Calc Pharmacy 53.8 ml/min; Est GFR (African American) 80.3; Est GFR (Non-African American) 69.3; Potassium 3.7 mmol/L (3.5-5.1)
[2018-11-09] MEDS: LOSARTAN POTASSIUM 50 MG TAB PO SCH (08:35)
[2018-11-09] MEDS: FLUTICASONE PROPIONATE NA SPR 16 GM BTL SCH (08:35)
[2018-11-09] MEDS: ISOSORBIDE MONO EXTENDED REL 60 MG TABCR PO SCH (08:36)
[2018-11-09] MEDS: PANTOprazole 40 MG TAB PO SCH (08:36)
[2018-11-09] MEDS: DOCUSATE SODIUM/SENNA 50/8.6MG TAB PO SCH (08:51)
[2018-11-09] MEDS ORDERED: ASPIRIN 81 MG ECTAB PO SCH (09:00)
--- NOTE | 2018-11-09 10:18 | Progress Note ---
Date of Service November 09, 2018 Assessment & Plan (1) Incarcerated right inguinal hernia: doing well will have drain removed keflex script in chart see in office next week probable d/c today Subjective see a/p Results & Data Vital Signs (Past 12 Hours) Vital Signs Temp Pulse Resp BP Pulse Ox 11/09/18 07:00 36.6 C 63 17 150/72 H 95 11/08/18 23:05 37 C 70 16 136/54 L 94
--- NOTE | 2018-11-09 11:07 | Discharge Summary ---
Date of Service November 09, 2018 Admission HPI Per Admitting Provider Mr. Coffey is a pleasant 83yo C male with multiple medical comorbidities, notably CAD s/p CABG x 2V with subsequent stenting, CHF, AF on Coumadin anticoagulation with therapeutic INR of 3.2. He had TAVR perfrmed at [facility] in [place] on 07/28/18. Procedure was well tolerated and he has had an fair recovery. Patient with longstanding history of right inguinal hernia. He reports that the hernia "pops out" every now and then but he is always able to reduce it. Today patient's hernia popped out and became firm and painful. Patient was not able to reduce the hernia so he came to the ER. Last BM this AM, normal. Last meal was breakfast around 09:00 today. On arrival to the ER he was found to be afebrile, hemodynamically stable. He is presently feeling well. Pain is well controlled. The hernia has partially reduced. Patient denies chest pain at rest or with exertion. He does get some exertional dyspnea which has improved since his TAVR. He is unable to perform much physical activity due to orthopedic discomfort. ER Course: Vitamin K 10mg IV, KCentra 2000 units x 1 Principal Diagnosis Incarcerated Hernia Discharge Exam Constitutional WD/WN, vitals as above Respiratory normal respiratory effort, lungs clear to auscultation Cardiovascular RRR, no murmur, no edema Gastrointestinal (Abdomen) Inspection/Auscultation: abdomen normal to inspection and normal bowel sounds; abdomen not distended Musculoskeletal no cyanosis or clubbing, extremities motor strength 5/5 Skin no rashes, warm and dry Neurologic moves all extremities and awake Psychiatric A+Ox3, euthymic affect Discharge Data Allergies Allergy/AdvReac Type Severity Reaction Status Date / Time oxycodone Allergy Severe HALLUCINATI Verified 11/06/18 17:55 ONS TASHA Inhibitors AdvReac Intermediate Cough Verified 11/06/18 17:55 rosuvastatin AdvReac Intermediate CONSTIPATIO Verified 11/06/18 17:55 N niacin AdvReac Mild FLUSHING Verified 11/06/18 17:55 Consultations 11/06/18 20:39 Consult General Surgery Routine 11/08/18 07:35 Consult Case Management - Discharge Planning Routine Procedures Performed Operation Date: 11/06/18 19:15 Actual Procedures p Inguinal Hernia Repair(Not Applicable) - Dalton Cho MD, FACS Ordered Studies 11/06/18 18:16 CT abd pelvis wo con Stat Hospital Course (1) Incarcerated right inguinal hernia: - CT showed bowel and fluid filled right inguinal hernia resulting in SBO. - S/p right inguinal hernia and femoral hernia repair on 11/06/18, POD#2. - General surgery following - discussed with Dr. Cho and patient is ok for discharge today. - Pain meds prn -- has not been requiring frequent doses. - Resumed Coumadin 2.5mg 11/08 per general surgery recommendations. INR 1.0 today - will have patient take his normal 5 mg Friday dosing of Coumadin and see coag clinic tomorrow. Will avoid bridging - CHADS-VASC is 4 which is higher risk for clot however his HAS BLED score is 3 - risk for bleed likely outweighs risk for clot. Risks and benefits discussed with patient and he verbalized understanding. - Continue ASA - Continue bowel regimen - per Dr. Cho miralax bid until bm. Will have patient call surgery Friday if no bowel movement yet. - H/o CAD, CHF, Prior TIA (2) CAD (coronary artery disease): - H/o CABG in 1983 with BELLAMY to LAD, Saphenous to RCA; also had acute saphenous vein graft thrombosis in setting of antiplatelet discontinuation in 2009 with subsequent stenting. - Most recent cardiac cath in 2016, patent grafts noted. - Currently denies cardiac symptoms; EKG was negative - Trending trop levels due to risk of post op MACE --last troponin stable at 0.058. - Continue ASA - Continue statin, Imdur and Coreg and Losartan. - Holding home Lasix -- weight stable, no SOB, no LLE edema- will resume for discharge (3) Chronic systolic heart failure: - Most recent TTE in 2017 showed EF 45%, dilated left and right atrium, valvular disease and moderate LVH. - Currently appears well compensated, no evidence of acute failure. - Continue home Coreg, Imdur and Losartan; held Lasix in post op setting. - Monitor I/Os and daily weights -Pt tolerating PO. D/c'd IVF. (4) Aortic valve replaced: - S/p TAVR at [facility] in July 2018. - Valvular disease as noted below. (5) Hypertension: - Continue Coreg, Imdur and Losartan. - restart lasix at discharge (6) Hyperlipidemia: - Continue statin as prescribed. (7) Atrial fibrillation: - Continue coreg as prescribed. - Required reversal of INR at admission for procedure, INR was 1.0 today. - Resume Coumadin 2.5mg 11/08 -will have patient continue home regimen with 5 mg today and will see coag clinic tomorrow for recheck (8) Pacemaker: - S/p dual chamber pacemaker with defibrillator due to ischemic cardiomyopathy. (9) Valvular heart disease: - Noted on most recent echo in 2017; mild AR, mild , moderate MR, mild TR. - Follows with cardiology. (10) DVT prophylaxis: - SCDs; resumed Coumadin 11/08 Dispo: home with HH per PT/OT evals Total Time Total Time Spent Total Time Spent (In Minutes): greater than 30 minutes Discharge Plan Discharge Items Patient Disposition: Home - Home Health Services Reason For Visit: INCARCERATED HERNIA Discharge Diagnosis: incarcerated hernia Discharge Goals: Decrease discomfort, Improve disease control and Improve function Activity: As commented below Activity Comment: light activity for 4 weeks Lifting: No more than 10 pounds Bathing Comment: may shower Sexual Activity: When tolerated Exercise Comment: wait 4 weeks Driving/Machine Use Comment: wait 1 week Non-emergency contact: Primary Care Provider and Surgeon Call non-emergency contact if: your pain is not controlled, your temperature is above 101 and your wound has increased drainage Follow-up/Referrals: [facility] [Other] (the coagulation clinic will contact you with an appointment time) Raghu Murphy MD [Primary Care Provider] - 11/13/18 12:50 pm (follow up appointment at your primary care physician office with Dr. Bass) Diet: Regular Addtl Provider Instructions: Please call surgery if you have not had a bowel movement by Friday. Please see the coagulation clinic tomorrow for an INR check. Dr. Cho recommends that you take Miralax twice a day until you have a bowel movement SPECIAL CARE INSTRUCTIONS: * Cover incisions and change daily for comfort/drainage. * Leave steri strips in place * Expect some swelling and bruising. Call your doctor if: * Temperature above 101 degrees * Pain not relieved by pain medicine ordered * There is increased drainage or redness from any incision * You have any unanswered questions or concerns [phone]. FOLLOW UP VISIT: If not already scheduled, please call the office for a follow-up visit. OFFICE PHONE NUMBER: Dr. Cho Office for next week- suture removal Prescriptions: New cephalexin [Keflex] 500 mg capsule 500 mg PO TID 7 Days Qty: 21 RF: 0 Continued multivitamin Tablet 1 tab PO QAM RF: 0 losartan 50 mg Tablet 50 mg PO QAM RF: 0 carvedilol 6.25 mg Tablet 6.25 mg PO PM RF: 0 polyethylene glycol 3350 [Miralax] 17 gram Powder In Packet 17 g PO DIRECTED PRN (Reason: Constipation) RF: 0 atorvastatin 10 mg Tablet 10 mg PO HS RF: 0 aspirin [Aspir-81] 81 mg Tablet,Delayed Release (Dr/Ec) 162 mg PO QAM RF: 0 tramadol 50 mg Tablet 50 mg PO Q12 PRN (Reason: Pain) RF: 0 isosorbide mononitrate 60 mg Tablet Extended Release 24 Hr 60 mg PO QAM RF: 0 temazepam 15 mg Capsule 7.5 - 15 mg PO HS PRN (Reason: Sleep) RF: 0 pantoprazole 40 mg Tablet,Delayed Release (Dr/Ec) 40 mg PO QAM RF: 0 warfarin [Coumadin] 5 mg Tablet 5 mg PO 2XWK RF: 0 nitroglycerin [Nitrostat] 0.4 mg Tablet, Sublingual 0.4 mg Sublingual DIRECTED PRN (Reason: Chest Pain) RF: 0 gabapentin 100 mg Capsule 100 mg PO DIRECTED PRN (Reason: Pain) RF: 0 fluticasone propionate [Flonase Allergy Relief] 50 mcg/actuation Mentor,Suspension 1 spray INTRANASAL BID RF: 0 finasteride 5 mg Tablet 5 mg PO QPM RF: 0 cholecalciferol (vitamin D3) [Vitamin D3] 1,000 unit Capsule 1,000 unit PO PM RF: 0 Restasis 0.05 % Dropperette 1 drp OPHTHALMIC (EYE) BID RF: 0 acetaminophen [Tylenol] 325 mg Capsule 650 mg PO Q6H PRN (Reason: Fever Or Pain) RF: 0 azelastine 0.15 % (205.5 mcg) Mentor,Non-Aerosol 2 spray INTRANASAL BID RF: 0 glucosamine-chondroitin 500-200 mg Tablet Extended Release 1 tab PO BID RF: 0 warfarin [Coumadin] 5 mg tablet 2.5 mg PO 5XWK RF: 0 furosemide 40 mg tablet 40 mg PO QAM RF: 0 Stand-Alone Forms: [facility] Discharge Orders: Discharge Order (Routine); Ordered 11/09/18 Ordered By: Adore Avalos Admission Data Admit Date/Time: 11/06/18 21:53 Attending Provider: Farhan Lopez Admit Provider: Dalton Cho Primary Care Provider: Raghu Murphy Other Providers: Dalton Cho Service: Surgical Services
== END 2018-11-09 14:02 | disposition home health service (06) | DRG 351 ==
LOC: ED 16:30 → ASU 20:28 → SUATTDRO 21:53 → 2S 21:53 → 3N 11-08 17:42
DX: I25.5 Ischemic cardiomyopathy; I48.91 Unspecified atrial fibrillation; Z82.49 Family history of ischemic heart disease and other diseases of the circulatory system; Z95.1 Presence of aortocoronary bypass graft; Z79.899 Other long term (current) drug therapy; E78.5 Hyperlipidemia, unspecified; Z88.5 Allergy status to narcotic agent; I34.0 Nonrheumatic mitral (valve) insufficiency; Z95.2 Presence of prosthetic heart valve; Z86.73 Personal history of transient ischemic attack (TIA), and cerebral infarction without residual deficits; Z79.01 Long term (current) use of anticoagulants; I25.2 Old myocardial infarction; Z95.5 Presence of coronary angioplasty implant and graft; Z98.890 Other specified postprocedural states; I11.0 Hypertensive heart disease with heart failure; Z87.891 Personal history of nicotine dependence; I25.10 Atherosclerotic heart disease of native coronary artery without angina pectoris; K41.90 Unilateral femoral hernia, without obstruction or gangrene, not specified as recurrent; I50.22 Chronic systolic (congestive) heart failure; Z79.82 Long term (current) use of aspirin; Z95.0 Presence of cardiac pacemaker; Z88.8 Allergy status to other drugs, medicaments and biological substances; K40.31 Unilateral inguinal hernia, with obstruction, without gangrene, recurrent

== ENCOUNTER 2020-11-10 12:11 | Inpatient (IN) ==
[2020-11-10] MEDS ORDERED: ALBUT/IPRATROP 3MG/0.5MG NEB 3 ML VIAL NEB STA ×2 (12:53→14:45)
[2020-11-10] MEDS ORDERED: methylPREDNISolone 125 MG/2 ML VIAL IV STA (12:53)
--- NOTE | 2020-11-10 13:58 | XRay Report ---
SINGLE VIEW CHEST CLINICAL HISTORY: Atypical chest pain. FINDINGS: An AP, portable, upright chest radiograph is compared to study dated 10/09/2020 and correlate d with chest CT dated 02/15/2017. A 3-lead cardiac pacemaker is unchanged in position and partially o bscures the left upper chest. The patient is status post midline sternotomy and cardiac valve surgery . The heart is enlarged noting atherosclerotic calcification of the thoracic aorta. The pulmonary vas culature is noncongested. Emphysema with chronic interstitial thickening and changes of chronic inter stitial lung disease is similar to previous. There is no evidence of superimposed airspace consolidat ion or large pleural effusion. No pneumothorax is seen. The skeletal structures are osteopenic. The b payton thorax is grossly intact. IMPRESSION: 1. Cardiomegaly and cardiac pacemaker. There is no radiographic evidence of congestive failure. 2. Emphysema and chronic parenchymal changes as above. 3. There is no evidence of superimposed airspace consolidation or large pleural effusion. ACT 112: Negative or not required by law. Electronically signed by: Glen Noriega M.D. 11/10/2020 1:57 PM
[2020-11-10 14:44] LABS: Basophils # (auto) 0.02 K/uL (0-0.2); Basophils % (auto) 0.3 %; Eosinophils # (auto) 0.27 K/uL (0-0.5); Hematocrit (blood only) 49.5 % (42-52); Hemoglobin 17.1 g/dL (14.0-18.0); Immature Granulocytes # (auto) 0.01 K/uL (0.00-0.02); Immature Granulocytes % (auto) 0.1 %; Lymphocytes # (auto) 1.25 K/uL (1.2-3.4); Lymphocytes % (auto) 18.5 %; Mean Corpuscular Hemoglobin 33.8 pg (25-34); Mean Corpuscular Hgb Conc 34.5 g/dL (32-36); Mean Corpuscular Volume 97.8 fL (80-100); Mean Platelet Volume 9.8 fL (7.4-10.4); Monocytes # (auto) 0.32 K/uL (0.11-0.59); Monocytes % (auto) 4.7 %; Neutrophils # (auto) 4.89 K/uL (1.4-6.5); Neutrophils % (auto) 72.4 %; Platelet Count 201 K/uL (130-400); RDW Coefficient of Variation 14.5 % (11.5-14.5); RDW Standard Deviation 51.8 fL (36.4-46.3); Red Blood Count 5.06 M/uL (4.7-6.1); White Blood Count 6.76 K/uL (4.8-10.8)
[2020-11-10] MEDS ORDERED: OXYMETAZOLINE 0.05% 30 ML BTL NAE ONE (14:46)
[2020-11-10] MEDS ORDERED: TXA 10% Non-IV Routes 100 MG/ML VIAL TOP ONE (14:46)
[2020-11-10 14:55] LABS: INR 1.6 (0.9-1.1); Partial Thromboplastin Ratio 1.1; Partial Thromboplastin Time 30.2 Seconds (21.0-31.0); Prothrombin Time 15.4 Seconds (9.0-12.0)
[2020-11-10 15:04] LABS: Albumin Level 3.6 gm/dl (3.4-5.0); BUN Creatinine Ratio 26.3 (10-20); Calcium 9.4 mg/dl (8.5-10.1); Creatinine Clr Calc Pharmacy 31.2 ml/min; Est GFR (African American) 42.6 ml/min; Est GFR (Non-African American) 36.8 ml/min; Potassium 4.6 mmol/L (3.5-5.1)
[2020-11-10 15:11] LABS: Albumin Globulin Ratio 0.8 (0.9-2); Bilirubin,Total 0.9 mg/dl (0.2-1); Creatine Kinase MB 2.1 ng/ml (0.5-3.6); Globulin 4.7 gm/dl (2.5-4.0); Total Protein 8.3 gm/dl (6.4-8.2); Troponin I 0.086 ng/ml (0-0.045)
[2020-11-10] MEDS ORDERED: OPTIRAY 320 125ml IV ONE (15:52)
--- NOTE | 2020-11-10 16:05 | CT Scan Report ---
CT angio chest PE protocol CT DOSE: 413.64 mGycm HISTORY: 85 years-old Male with PE. Acute shortness of breath TECHNIQUE: Multiple CTA images of the chest were obtained after the intravenous administration of 118 ml Optiray. Coronal and sagittal MIPS were obtained from the axial data set and were submitted for review. All measurements were obtained according to NASCET criteria. A dose lowering technique was u tilized adhering to the principles of ALARA. COMPARISON: Chest radiograph of same day, CT abdomen and pelvis 10/09/2020, chest CT 02/15/2017. FINDINGS: CTA: Moderate cardiomegaly. Prior median sternotomy with aortic valvular prosthesis. Left subclavian pacer . Left heart structures are not well opacified and therefore cannot be evaluated. Extensive calcifica tion of the thoracic aorta. Papillary muscle calcifications. Prior CABG. The pulmonary arterial tree is opacified to the level of the subsegmental branches and demonstrates no filling defects to suggest thromboembolic disease. Reflux of contrast into the IVC. CT CHEST: Heterogeneous thyroid. Subcarinal adenopathy measures up to 1.5 cm in short axis, unchanged. Mildly p rominent paratracheal and prevascular nonenlarged lymph nodes. No pneumothorax, pleural effusion, air space consolidation or overt pulmonary edema. Mild emphysema. Subpleural cystic changes with subpleur al reticulation compatible with chronic interstitial lung disease has progressed from 2017. 11 mm sub pleural solid nodule of the right middle lobe lateral segment is unchanged dating back to at least 20 17 suggestive of benign etiology. 4 mm solid nodule of the right lung apex on image 277 appears to be new from 2017. Central airways are patent. No acute process of the imaged upper abdomen. Colonic diverticulosis. Partially imaged exophytic 1.5 cm intermediate density lesion of the superior pole right kidney is indeterminate. Unremarkable soft tissues. Degenerative changes of the spine and shoulders. IMPRESSION: 1. Cardiomegaly. No pulmonary emboli identified. 2. Emphysema with chronic interstitial lung disease, progressed from 2017. 3. Unchanged likely benign and subcarinal adenopathy. 4. No pleural effusion or airspace consolidation to suggest pneumonia. ACT 112: Negative or not required by law. The above report was generated using voice recognition software. It may contain grammatical, syntax o r spelling errors. Electronically signed by: Luke Kaur M.D. 11/10/2020 4:04 PM
[2020-11-10] MEDS ORDERED: SODIUM CHLORIDE 0.9% 1000ML 1,000 ML IV ONE (16:13)
--- NOTE | 2020-11-10 16:44 | History & Physical Report ---
Date of Service November 10, 2020 Assessment & Plan (1) Elevated troponin: Elevated troponin/ischemic cardiomyopathy/CAD/status post TAVR/atrial fibrillation/chronic systolic heart failure- The patient will be admitted to telemetry for serial cardiac enzymes, serial EKG's, cardiac rhythm monitoring and a 2-D echocardiogram with Dopplers. Troponin 0.086 upon admission. Likely type II, supply demand mismatch Continue aspirin, carvedilol, digoxin, furosemide, isosorbide mononitrate, losartan, warfarin and nitroglycerin sublingual as needed Present on Admission?: Yes (2) Ischemic cardiomyopathy: See above Present on Admission?: Yes (3) CAD (coronary artery disease): See above Present on Admission?: Yes (4) Valvular heart disease: See above Present on Admission?: Yes (5) Hypertension: See above Present on Admission?: Yes (6) Hypoxia: Hypoxia/Raynaud's disease- Pulse ox was significantly improved with forehead reading. Present on Admission?: Yes (7) Hyperlipidemia: Continue atorvastatin Present on Admission?: Yes (8) Atrial fibrillation: See above Present on Admission?: Yes (9) Chronic systolic heart failure: See above Present on Admission?: Yes (10) Epistaxis: Hold the following inhalers azelastine, calcitonin, fluticasone propionate and ipratropium bromide Continue current warfarin dosing for now. If patient has persistent epistaxis, will need to consult ENT. For now, eliminate the 4 potential irritating sources of inhalers Present on Admission?: Yes History of Present Illness Chief Complaint: Patient presents to the emergency department with complaint of 3 days of small-volume epistaxis, that he went to his PCPs office today for, but while there, was found to be hypoxic at 75% room air, with blue fingers and blue lips, and was sent to the emergency department for further assessment Primary Care Provider: Raghu Murphy MD The patient is a 85-year-old male with a past medical history including nocturnal hypoxemia, SNHL of both ears, pacemaker, ischemic cardiomyopathy, CAD, CKD stage II, hypertension, hyperlipidemia, atrial fibrillation, chronic systolic heart failure, secondary hyperparathyroidism, Raynaud's disease, moderate LOIS, polycythemia, aortic stenosis, BPH, vasomotor rhinitis, chronic reflux esophagitis, gout, long-term anticoagulant use, and mitral valve disorder. He presents with symptoms as noted above. In the emergency department, patient's pulse ox ranged from 97 to 98% on room air. His main complaint continues to be that of noticing faint blood on his tissue when he blows his nose. His family member thinks the issue may be related to the 4 nasal sprays that he uses Allergies Allergy/AdvReac Type Severity Reaction Status Date / Time oxycodone Allergy Severe HALLUCINATI Verified 11/10/20 14:43 ONS TASHA Inhibitors AdvReac Intermediate Cough Verified 11/10/20 14:43 rosuvastatin AdvReac Intermediate CONSTIPATIO Verified 11/10/20 14:43 N niacin AdvReac Mild FLUSHING Verified 11/10/20 14:43 paroxetine AdvReac Mild drowsiness Verified 11/10/20 14:43 Home Medications Medication Instructions Recorded Confirmed Type acetaminophen [Tylenol] 650 mg PO Q8H PRN 02/10/18 11/10/20 History isosorbide mononitrate 60 mg PO HS 02/10/18 11/10/20 History multivitamin 1 tab PO QAM 02/10/18 11/10/20 History pantoprazole 40 mg PO QAM 02/10/18 11/10/20 History azelastine 205.5 mcg (0.15 %) 2 spray INTRANASAL BID PRN 11/23/18 11/10/20 History nasal spray carvedilol 6.25 mg tablet 6.25 mg PO BID tab 11/23/18 11/10/20 History furosemide 40 mg tablet 40 mg PO DAILY tab 11/23/18 10/09/20 History ipratropium bromide 42 mcg (0.06 2 sprays INTNAS BID PRN ml 11/23/18 11/10/20 History %) nasal spray losartan 50 mg tablet 50 mg PO BIDM tab 11/23/18 11/10/20 History cyclosporine 0.05 % eye drops in a 1 drp OPHTHALMIC (EYE) BID ea 12/04/18 11/10/20 History dropperette loratadine 10 mg tablet 10 mg PO DAILY tab 12/04/18 11/10/20 History melatonin 3 mg tablet 3 mg PO HS PRN #1 tab 06/04/19 11/10/20 Rx cholecalciferol (vitamin D3) 25 2,000 unit PO DAILY cap 09/20/19 11/10/20 History mcg (1,000 unit) capsule digoxin [Digitek] 125 mcg PO QAM 03/28/20 11/10/20 History fluticasone propionate [Flonase 1 sprays INTNAS BID 03/28/20 11/10/20 History Allergy Relief] finasteride 5 mg tablet 5 mg PO QAM #90 tab 07/12/20 11/10/20 Rx alendronate 70 mg PO PIMENTEL 10/09/20 11/10/20 History atorvastatin 40 mg PO DAILY 10/09/20 11/10/20 History calcitonin (salmon) 1 spray INTRANASAL DAILY 10/09/20 11/10/20 History donepezil 10 mg PO HS 10/09/20 11/10/20 History gabapentin 300 mg PO TID 10/09/20 11/10/20 History nitroglycerin 0.4 mg SUBLINGUAL UD 10/09/20 11/10/20 History tramadol 25 - 50 mg PO Q4H PRN 10/09/20 11/10/20 History vit C-vit [id number]-qnii-lutein 1 cap PO DAILY 10/09/20 11/10/20 History [PreserVision Lutein] aspirin 81 mg PO DAILY 11/10/20 11/10/20 History coenzyme Q10 [CoQ-10] 200 mg PO DAILY 11/10/20 11/10/20 History famotidine 20 mg PO BIDM 11/10/20 11/10/20 History glucos sul [id number]-C-Mn 1 cap PO BID 11/10/20 11/10/20 History [Glucosamine Chondroitin] warfarin 2.5 mg PO SUTUWETHSA 11/10/20 11/10/20 History warfarin 5 mg PO MOFR 11/10/20 11/10/20 History Past Med/Surg History Medical History CAD (coronary artery disease) Remote [place] 1983 with CABG x 2 (BELLAMY-LAD, SVG-RCA). 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 Follows with [facility] cardiology. Chronic kidney disease (CKD), stage II (mild) Congestive heart failure, NYHA class III Hospitalization 10/2017, 02/2018 for acute on chronic CHF COPD (chronic obstructive pulmonary disease) History of TIA (transient ischemic attack) OVER 5 YEARS AGO AND NO RESIDUAL EFFECTS Hx of myocardial infarction 1983 AND HAD CABG X2 Ischemic cardiomyopathy S/P BiV pacer (NOT defibfillator) 2012, with generator change 10/2019 at [facility]. Most recent echo showed EF 50% (12/13/19) Mitral valve disorder Pacemaker Medtronic, generator change 10/05/19 at [facility]. Medtronic. Last interrogation 02/02/20. 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 No significant prosthesis stenosis or regurg on 12/2019 echo. Severe mitral regurgitation with eccentric jet posteriorly directed. Surgical History Colonoscopy (08/25/12) H/O carotid endarterectomy (~1997) 1997 on right History of coronary artery bypass graft x 2 (~1983) 1983 - FOLLOWS WITH [facility] History of repair of inguinal hernia (11/06/18) Incarcerated right inguinal hernia repair and femoral hernia repair 11/06/18 Dr. Cho Hx of aortic valve replacement (~05/2018) [facility] 05/2018 S/P hernia repair RIGHT INGUINAL HERNIA REPAIR S/P left inguinal hernia repair (04/04/20) Open Sliding indirect Left Inguinal Hernia Repair, Direct weakness,with Mesh Placement, Excision Lipoma of Cord Dr. [place] 04/04/2020 Status post placement of cardiac pacemaker (~2013) 2013, [employer] - FOLLOWS WITH [facility] LAST CHECK 05/2018 AND NEXT CHECK WILL BE 10/2018 Status post right knee replacement Stented coronary artery (~2014) 2014 ONE STENT WAS PLACED AND FOLLOWS WITH [facility] Family History Other Heart disease Social History Smoking Status: Former smoker Second Hand Exposure: No; Do You Dip or Chew Tobacco: No; Tobacco Cessation Education Requested by Patient: No Hx Alcohol Use: No Hx Substance Use: No Preferred Language: Latvian Communication Ability: Effective Hospital Superintendent Required: No Beliefs That Will Affect Care: None Current Living Situation: Alone current occupational status: retired Feels Safe at Home: Yes Assistive Devices: Cane, Denture - Upper, Denture - Lower, Hearing Aid - Left and Hearing Aid - Right Review of Systems Review of Systems: The patient denies chest pain, palpitations, shortness of breath, dyspnea on exertion, cough, lower extremity swelling, sore throat, fevers, chills, sweats, weight change, fatigue, nausea, vomiting, diarrhea , constipation, abdominal pain, pelvic pain, blood in urine or stool, dysuria, urinary frequency or urgency, lightheadedness, dizziness, headache, memory loss, loss of consciousness, rash, imbalance, focal or generalized weakness, numbness or tingling in arms or legs, generalized arthralgias or myalgias, back or neck pain, or night sweats. The review of systems is otherwise negative other than for that already noted above, and at least 10 systems have been reviewed. Physical Exam Physical Exam: The patient is awake, alert and oriented 3, well developed and well nourished, normocephalic and atraumatic, lying in bed and in no acute distress. HEENT--PERRL, EOMI, mucous membranes and oropharynx normal Neck--supple. No JVD. No bruits. Thyroid normal, trachea midline, no adenopathy. Heart--normal S1 and S2. SM , no rubs or gallops Lungs--clear bilaterally, no respiratory distress, no accessory muscle use. Abdomen--normal bowel sounds and soft. Nontender. Nondistended, no hernias or masses, no organomegaly. Extremities--no cyanosis or clubbing. No edema. Dermatologic--normal skin turgor, normal color, no abnormal lymph nodes, no rash. Neurologic--cranial nerves II through XII grossly intact. Rheumatologic--normal range of motion. Psychiatric--normal affect. Results & Data Results & Data ([facility]) Vital Signs (Past 12 Hours) Vital Signs Temp Pulse Pulse Resp BP Pulse Ox 11/10/20 15:30 70 21 137/67 98 11/10/20 15:07 72 16 97 11/10/20 15:00 70 21 127/66 98 11/10/20 14:30 70 15 114/56 L 97 11/10/20 14:00 70 20 134/67 97 11/10/20 13:30 70 19 107/70 100 11/10/20 13:24 72 16 97 11/10/20 13:14 70 21 130/66 97 11/10/20 12:31 97.7 F 70 12 159/84 H 100 11/10/20 12:19 70 15 155/79 H 100 Laboratory Results Laboratory Results WBC 6.76 K/uL (4.8-10.8) 11/10/20 14:26 RBC 5.06 M/uL (4.7-6.1) 11/10/20 14:26 Hgb 17.1 g/dL (14.0-18.0) 11/10/20 14:26 Hct 49.5 % (42-52) 11/10/20 14:26 MCV 97.8 fL (80-100) 11/10/20 14:26 MCH 33.8 pg (25-34) 11/10/20 14:26 MCHC 34.5 g/dL (32-36) 11/10/20 14:26 RDW Std Deviation 51.8 fL (36.4-46.3) H 11/10/20 14:26 RDW Coeff of [place] 14.5 % (11.5-14.5) 11/10/20 14:26 Plt Count 201 K/uL (130-400) 11/10/20 14:26 MPV 9.8 fL (7.4-10.4) 11/10/20 14:26 Immature Gran % (Auto) 0.1 % 11/10/20 14:26 Neut % (Auto) 72.4 % 11/10/20 14:26 Lymph % (Auto) 18.5 % 11/10/20 14:26 [place] % (Auto) 4.7 % 11/10/20 14:26 Eos % (Auto) 4.0 % 11/10/20 14:26 Baso % (Auto) 0.3 % 11/10/20 14:26 Neut # (Auto) 4.89 K/uL (1.4-6.5) 11/10/20 14:26 Lymph # (Auto) 1.25 K/uL (1.2-3.4) 11/10/20 14:26 [place] # (Auto) 0.32 K/uL (0.11-0.59) 11/10/20 14:26 Eos # (Auto) 0.27 K/uL (0-0.5) 11/10/20 14:26 Baso # (Auto) 0.02 K/uL (0-0.2) 11/10/20 14:26 Immature Gran # (Auto) 0.01 K/uL (0.00-0.02) 11/10/20 14:26 PT 15.4 Seconds (9.0-12.0) H 11/10/20 14:26 INR 1.6 (0.9-1.1) H 11/10/20 14:26 APTT 30.2 Seconds (21.0-31.0) 11/10/20 14: PTT Ratio 1.1 11/10/20 14:26 Sodium 137 mmol/L (136-145) 11/10/20 14:26 Potassium 4.6 mmol/L (3.5-5.1) 11/10/20 14:26 Chloride 102 mmol/L (98-107) 11/10/20 14:26 Carbon Dioxide 31 mmol/L (21-32) 11/10/20 14:26 Anion Gap 4.0 (3-11) 11/10/20 14:26 BUN 44 mg/dl (7-18) H 11/10/20 14:26 Creatinine 1.67 mg/dl (0.6-1.4) H 11/10/20 14:26 Est Cr Clr Drug Dosing 31.2 ml/min 11/10/20 14:26 Est GFR ( Amer) 42.6 ml/min 11/10/20 14:26 Est GFR (Non-Af Amer) 36.8 ml/min 11/10/20 14:26 BUN/Creatinine Ratio 26.3 (10-20) H 11/10/20 14:26 Glucose 119 mg/dl (70-99) H 11/10/20 14:26 Calcium 9.4 mg/dl (8.5-10.1) 11/10/20 14:26 Total Bilirubin 0.9 mg/dl (0.2-1) 11/10/20 14:26 AST 23 U/L (15-37) 11/10/20 14:26 ALT 37 U/L (12-78) 11/10/20 14:26 Alkaline Phosphatase 106 U/L (45-117) 11/10/20 14:26 Total Creatine Kinase 70 U/L (39-308) 11/10/20 14:26 CK-MB (CK-2) 2.1 ng/ml (0.5-3.6) 11/10/20 14:26 CK/CKMB % Calc 3.0 (0-3.0) 11/10/20 14:26 Troponin I 0.086 ng/ml (0-0.045) H* 11/10/20 14:26 Total Protein 8.3 gm/dl (6.4-8.2) H 11/10/20 14:26 Albumin 3.6 gm/dl (3.4-5.0) 11/10/20 14:26 Globulin 4.7 gm/dl (2.5-4.0) H 11/10/20 14:26 Albumin/Globulin Ratio 0.8 (0.9-2) L 11/10/20 14:26 Lipase 181 U/L (73-393) 11/10/20 14:26 COVID-19 Eval Order Covid19 at [facility] 11/10/20 13:14 SARS-CoV-2 (PCR) NEGATIVE (Negative) 11/10/20 13:14 Impressions Chest X-Ray 11/10/20 12:53 SINGLE VIEW CHEST CLINICAL HISTORY: Atypical chest pain. FINDINGS: An AP, portable, upright chest radiograph is compared to study dated 10/09/2020 and correlated with chest CT dated 02/15/2017. A 3-lead cardiac pacemaker is unchanged in position and partially obscures the left upper chest. The patient is status post midline sternotomy and cardiac valve surgery. The heart is enlarged noting atherosclerotic calcification of the thoracic aorta. The pulmonary vasculature is noncongested. Emphysema with chronic interstitial thickening and changes of chronic interstitial lung disease is similar to previous. There is no evidence of superimposed airspace consolidation or large pleural effusion. No pneumothorax is seen. The skeletal structures are osteopenic. The bony thorax is grossly intact. IMPRESSION: 1. Cardiomegaly and cardiac pacemaker. There is no radiographic evidence of congestive failure. 2. Emphysema and chronic parenchymal changes as above. 3. There is no evidence of superimposed airspace consolidation or large pleural effusion. ACT 112: Negative or not required by law. Electronically signed by: Glen Noriega M.D. 11/10/2020 1:57 PM Chest CTA 11/10/20 14:57 CT angio chest PE protocol CT DOSE: 413.64 mGycm HISTORY: 85 years-old Male with PE. Acute shortness of breath TECHNIQUE: Multiple CTA images of the chest were obtained after the intravenous administration of 118 ml Optiray. Coronal and sagittal MIPS were obtained from the axial data set and were submitted for review. All measurements were obtain ed according to NASCET criteria. A dose lowering technique was utilized adhering to the principles of ALARA. COMPARISON: Chest radiograph of same day, CT abdomen and pelvis 10/09/2020, chest CT 02/15/2017. FINDINGS: CTA: Moderate cardiomegaly. Prior median sternotomy with aortic valvular prosthesis. Left subclavian pacer. Left heart structures are not well opacified and therefore cannot be evaluated. Extensive calcification of the thoracic aorta. Papillary muscle calcifications. Prior CABG. The pulmonary arterial tree is opacified to the level of the subsegmental branches and demonstrates no filling defects to suggest thromboembolic disease. Reflux of contrast into the IVC. CT CHEST: Heterogeneous thyroid. Subcarinal adenopathy measures up to 1.5 cm in short axis, unchanged. Mildly prominent paratracheal and prevascular nonenlarged lymph nodes. No pneumothorax, pleural effusion, airspace consolidation or overt pulmonary edema. Mild emphysema. Subpleural cystic changes with subpleural reticulation compatible with chronic interstitial lung disease has progressed from 2017. 11 mm subpleural solid nodule of the right middle lobe lateral segment is unchanged dating back to at least 2017 suggestive of benign etiology. 4 mm solid nodule of the right lung apex on image [id number] appears to be new from 2017. Central airways are patent. No acute process of the imaged upper abdomen. Colonic diverticulosis. Partially imaged exophytic 1.5 cm intermediate density lesion of the superior pole right kidney is indeterminate. Unremarkable soft tissues. Degenerative changes of the spine and shoulders. IMPRESSION: 1. Cardiomegaly. No pulmonary emboli identified. 2. Emphysema with chronic interstitial lung disease, progressed from 2017. 3. Unchanged likely benign and subcarinal adenopathy. 4. No pleural effusion or airspace consolidation to suggest pneumonia. ACT 112: Negative or not required by law. The above report was generated using voice recognition software. It may contain grammatical, syntax or spelling errors. Electronically signed by: Luke Kaur M.D. 11/10/2020 4:04 PM Code Status & VTE Plan Code Status Full code VTE Prophylaxis Plan VTE Prophylaxis will be ordered: Yes PG Care Time/CCT Total # of Minutes Spent Total Time Spent with Patient: Total time spent is greater than 50% in coordination of care (as documented) at patient's floor/unit and/or counseling patient: Coding Level of Care Code 24809 Initial Inpt Care Lvl 3 Diagnoses Elevated troponin R77.8 Ischemic cardiomyopathy I25.5 CAD (coronary artery disease) I25.10 Coronary Disease-Associated Artery/Lesion type: [place] artery [place] vs. transplanted heart: [place] heart Associated angina: without angina Valvular heart disease I38 Hypertension I10 Hypertension type: essential hypertension Hypoxia R09.02 Hyperlipidemia E78.5 Hyperlipidemia type: unspecified Atrial fibrillation I48.91 Atrial fibrillation type: unspecified Chronic systolic heart failure I50.22 Epistaxis R04.0 (1) CAD (coronary artery disease) Coronary Disease-Associated Artery/Lesion type: [place] artery [place] vs. transplanted heart: [place] heart Associated angina: without angina Qualified Code(s): I25.10 - Atherosclerotic heart disease of [place] coronary artery without angina pectoris (2) Hypertension Hypertension type: essential hypertension Qualified Code(s): I10 - Essential (primary) hypertension (3) Hyperlipidemia Hyperlipidemia type: unspecified Qualified Code(s): E78.5 - Hyperlipidemia, unspecified (4) Atrial fibrillation Atrial fibrillation type: unspecified Qualified Code(s): I48.91 - Unspecified atrial fibrillation
--- NOTE | 2020-11-10 17:06 | Emergency Department Note ---
Impression & Plan Hypoxia, Elevated troponin ED Provider Note NAME: HORTENSIA HOLDER AGE: 85 SEX: M : 1935 ARRIVES VIA: Ambulance INFORMANT: Patient, daughter, EMS ED PROVIDER(S): Fred Nichols MD CHIEF COMPLAINT: hypoxia, epistaxis HPI: 75-year-old male who presents emergency department complaining of epistaxis. The patient reports he was going to his primary care physician's office today due to the fact that he was having a nosebleed. Upon arrival to the doctor's office the patient's nosebleed was controlled however he was found to be 75% rate on room air. The patient is on Coumadin. He denies any chest pain. He also denies shortness of breath. The patient is somewhat confused and the daughter notes that the patient does have confusion from time to time. He was given an albuterol breathing treatment by EMS. Upon arrival to the emergency department the patient is satting much better and is in no distress. ROS: See above HPI for pertinent positives & negatives. A total of 10 systems reviewed and were otherwise negative. PAST MEDICAL HISTORY: See Below PAST SURGICAL HISTORY: See Below FAMILY HISTORY: See Below SOCIAL HISTORY: See Below HOME MEDICATIONS: See Below ALLERGIES: See Below VITALS: See Below PHYSICAL EXAMINATION: VITAL SIGNS - Vital signs and nursing notes were reviewed. GENERAL - 85-year-old male appearing stated age who is in no acute distress. Communicates well with provider and answers questions appropriately. SKIN - Without rashes. HEAD - NC/AT. EYES - PERRL with EOMI bilaterally. Sclera anicteric. Palpebral conjunctiva pink and moist with no injection noted. EARS - No deformities of external structures noted on gross examination bilaterally. NOSE - Midline and without cyanosis. No epistaxis or purulent drainage noted. Septum midline without deviation or septal hematoma noted. MOUTH/OROPHARYNX - Without perioral cyanosis. Buccal mucosa pink and moist and without leukoplakia. Tongue midline with equal elevation of palate bilaterally. No tonsillar hypertrophy, erythema, or exudates noted. NECK - Neck with FROM. Supple to palpation. No nuchal rigidity. LUNGS - Chest wall symmetric without accessory muscle use, intercostals retr actions, or central cyanosis. Normal vesicular breath sounds CTA B/L. No wheezes, rales, or rhonchi appreciated. CARDIAC - RRR with S1/S2. No murmur, rubs, or gallops appreciated. ABDOMEN - Abdominal contour without pulsations or visible masses. BS normoactive all four quadrants. No tenderness, palpable masses, hepatosplenomegaly, or ascites noted. EXTREMITIES - No clubbing or peripheral cyanosis. No pretibial edema present. +3/5 radial, posterior tibial, and dorsalis pedis pulses palpated throughout. +5/5 strength noted in UE/LE bilaterally. NEUROLOGIC - Cranial nerves II through XII grossly intact. Sensory intact to light touch throughout. Patellar reflexes +2/4. PSYCH - A&Ox3 and cooperates fully with examiner. Pt is very pleasant and interacts well with examiner. MEDICAL DECISION MAKING: Patient was seen and evaluated as above in room C4. Review was performed of nursing notes and vital signs. I did review pertinent previous visits and patient history. After obtaining a thorough history and physical examination the above work up was performed. 75-year-old male who presents emergency department complaining of hypoxia. The patient was given multiple breathing treatments here. The patient's troponin was found to be elevated. In addition his INR is not therapeutic for this reason the patient was sent for CAT scan of the chest. He was given a normal saline bolus. I did discuss the case with the hospitalist service who did agree to admit the patient. The patient was also started on Solu-Medrol. An order was placed for continuous cardiac monitoring. The monitor shows a rate of 70 with Normal Sinus rhythm. The patient was evaluated during a period of high volume and high acuity during the global COVID-19 pandemic, and that diagnosis was suspected/considered upon their initial presentation. Their evaluation, treatment and testing was consistent with current guidelines for patients who present with complaints or symptoms that may be related to COVID-19. Patient was seen while provider was wearing PPE. Triage Nursing notes reviewed. Prior medical records reviewed Vital Signs: reviewed and remarkable for no significant abnormalities Differential diagnosis: Cardiac ischemia, aortic dissection, pulmonary embolism, pneumothorax, pneumoni a, pericarditis, myocarditis, esophageal rupture, GERD, cholecystitis, pancreatitis, musculoskeletal, as well as other pathologies. ER treatment provided: See below Diagnostics interpreted by me: ECG: EKG shows a ventricular paced rhythm QTC is 447 ventricular rate of [address] elevation or depression, EKG is compared to 10/09/2020 and is unchanged Laboratory studies: As stated above and show below. Imaging studies: See below Consultation(s): Internal Medicine Past Med/Surg History Medical History CAD (coronary artery disease) Remote [place] 1983 with CABG x 2 (BELLAMY-LAD, SVG-RCA). 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 Follows with [facility] cardiology. Chronic kidney disease (CKD), stage II (mild) Congestive heart failure, NYHA class III Hospitalization 10/2017, 02/2018 for acute on chronic CHF COPD (chronic obstructive pulmonary disease) History of TIA (transient ischemic attack) OVER 5 YEARS AGO AND NO RESIDUAL EFFECTS Hx of myocardial infarction 1983 AND HAD CABG X2 Ischemic cardiomyopathy S/P BiV pacer (NOT defibfillator) 2012, with generator change 10/2019 at [facility]. Most recent echo showed EF 50% (12/13/19) Mitral valve disorder Pacemaker Medtronic, generator change 10/05/19 at [facility]. Medtronic. Last interrogation 02/02/20. 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 No significant prosthesis stenosis or regurg on 12/2019 echo. Severe mitral regurgitation with eccentric jet posteriorly directed. Surgical History Colonoscopy (08/25/12) H/O carotid endarterectomy (~1997) 1997 on right History of coronary artery bypass graft x 2 (~1983) 1983 - FOLLOWS WITH [facility] History of repair of inguinal hernia (11/06/18) Incarcerated right inguinal hernia repair and femoral hernia repair 11/06/18 Dr. Cho Hx of aortic valve replacement (~05/2018) [facility] 05/2018 S/P hernia repair RIGHT INGUINAL HERNIA REPAIR S/P left inguinal hernia repair (04/04/20) Open Sliding indirect Left Inguinal Hernia Repair, Direct weakness,with Mesh Placement, Excision Lipoma of Cord Dr. [place]aya 04/04/2020 Status post placement of cardiac pacemaker (~2013) 2013, [employer] - FOLLOWS WITH [facility] LAST CHECK 05/2018 AND NEXT CHECK WILL BE 10/2018 Status post right knee replacement Stented coronary artery (~2014) 2014 ONE STENT WAS PLACED AND FOLLOWS WITH [facility] Family History Other Heart disease Social History Smoking Status: Former smoker Second Hand Exposure: No; Do You Dip or Chew Tobacco: No; Tobacco Cessation Education Requested by Patient: No Hx Alcohol Use: No Hx Substance Use: No Preferred Language: Citizen Of [place] Communication Ability: Effective Refining Equipment Operator Required: No Beliefs That Will Affect Care: None Current Living Situation: Alone current occupational status: retired Feels Safe at Home: Yes Assistive Devices: Cane and Glasses Allergies Allergies Allergy/AdvReac Type Severity Reaction Status Date / Time oxycodone Allergy Severe HALLUCINATI Verified 11/10/20 14:43 ONS TASHA Inhibitors AdvReac Intermediate Cough Verified 11/10/20 14:43 rosuvastatin AdvReac Intermediate CONSTIPATIO Verified 11/10/20 14:43 N niacin AdvReac Mild FLUSHING Verified 11/10/20 14:43 paroxetine AdvReac Mild drowsiness Verified 11/10/20 14:43 Home Meds Home Medications Medication Instructions Recorded Confirmed acetaminophen [Tylenol] 650 mg PO Q8H PRN 02/10/18 11/10/20 isosorbide mononitrate 60 mg PO HS 02/10/18 11/10/20 multivitamin 1 tab PO QAM 02/10/18 11/10/20 pantoprazole 40 mg PO QAM 02/10/18 11/10/20 azelastine 205.5 mcg (0.15 %) 2 spray INTRANASAL BID PRN 11/23/18 11/10/20 nasal spray carvedilol 6.25 mg tablet 6.25 mg PO BID tab 11/23/18 11/10/20 furosemide 40 mg tablet 40 mg PO DAILY tab 11/23/18 10/09/20 ipratropium bromide 42 mcg (0.06 2 sprays INTNAS BID PRN ml 11/23/18 11/10/20 %) nasal spray losartan 50 mg tablet 50 mg PO BIDM tab 11/23/18 11/10/20 cyclosporine 0.05 % eye drops in a 1 drp OPHTHALMIC (EYE) BID ea 12/04/18 11/10/20 dropperette loratadine 10 mg tablet 10 mg PO DAILY tab 12/04/18 11/10/20 cholecalciferol (vitamin D3) 25 2,000 unit PO DAILY cap 09/20/19 11/10/20 mcg (1,000 unit) capsule digoxin [Digitek] 125 mcg PO QAM 03/28/20 11/10/20 fluticasone propionate [Flonase 1 sprays INTNAS BID 03/28/20 11/10/20 Allergy Relief] alendronate 70 mg PO PIMENTEL 10/09/20 11/10/20 atorvastatin 40 mg PO DAILY 10/09/20 11/10/20 calcitonin (salmon) 1 spray INTRANASAL DAILY 10/09/20 11/10/20 donepezil 10 mg PO HS 10/09/20 11/10/20 gabapentin 300 mg PO TID 10/09/20 11/10/20 nitroglycerin 0.4 mg SUBLINGUAL UD 10/09/20 11/10/20 tramadol 25 - 50 mg PO Q4H PRN 10/09/20 11/10/20 vit C-vit G-bmxlpa-cvyy-lutein 1 cap PO DAILY 10/09/20 11/10/20 [PreserVision Lutein] aspirin 81 mg PO DAILY 11/10/20 11/10/20 coenzyme Q10 [CoQ-10] 200 mg PO DAILY 11/10/20 11/10/20 famotidine 20 mg PO BIDM 11/10/20 11/10/20 glucos sul 1LPk-huf-ahzch-C-Mn 1 cap PO BID 11/10/20 11/10/20 [Glucosamine Chondroitin] warfarin 2.5 mg PO SUTUWETHSA 11/10/20 11/10/20 warfarin 5 mg PO MOFR 11/10/20 11/10/20 Previous Rx's Medication Instructions Recorded melatonin 3 mg tablet 3 mg PO HS PRN #1 tab 06/04/19 finasteride 5 mg tablet 5 mg PO QAM #90 tab 07/12/20 Results & Data (ED) Vital Signs Vital Signs - 24 hr 11/10/20 12:19 11/10/20 12:31 11/10/20 13:14 Temperature 36.5 C Temperature Source Oral Pulse Rate 70 70 70 Pulse Rate [Apical] Pulse Rate from SpO2 Sensor 69 70 Pulse Rhythm Regular Pulse Strength Normal Respiratory Rate 15 12 21 Respiratory Effort / Characteristics Non-Labored Spontaneous Respiratory Depth Normal Respiratory Pattern Regular Blood Pressure 155/79 H 159/84 H 130/66 Blood Pressure Mean 104 109 87 Blood Pressure Position Sitting Pulse Oximetry 100 100 97 Oxygen Delivery Method Room Air Sepsis Recent Fever Within 48 Hours No Sepsis New/Unexplained Change in Mental Status No Sepsis Action Taken by Nursing No Action Required 11/10/20 13:24 11/10/20 13:30 11/10/20 14:00 Temperature Temperature Source Pulse Rate 70 70 Pulse Rate [Apical] 72 Pulse Rate from SpO2 Sensor 70 70 Pulse Rhythm Pulse Strength Respiratory Rate 16 19 20 Respiratory Effort / Characteristics Non-Labored Spontaneous Respiratory Depth Respiratory Pattern Blood Pressure 107/70 134/67 Blood Pressure Mean 82 89 Blood Pressure Position Pulse Oximetry 97 100 97 Oxygen Delivery Method Room Air Sepsis Recent Fever Within 48 Hours Sepsis New/Unexplained Change in Mental Status Sepsis Action Taken by Nursing 11/10/20 14:30 11/10/20 15:00 11/10/20 15:07 Temperature Temperature Source Pulse Rate 70 70 Pulse Rate [Apical] 72 Pulse Rate from SpO2 Sensor 70 70 Pulse Rhythm Pulse Strength Respiratory Rate 15 21 16 Respiratory Effort / Characteristics Non-Labored Spontaneous Respiratory Depth Respiratory Pattern Blood Pressure 114/56 L 127/66 Blood Pressure Mean 75 86 Blood Pressure Position Pulse Oximetry 97 98 97 Oxygen Delivery Method Room Air Sepsis Recent Fever Within 48 Hours Sepsis New/Unexplained Change in Mental Status Sepsis Action Taken by Nursing 11/10/20 15:30 Temperature Temperature Source Pulse Rate 70 Pulse Rate [Apical] Pulse Rate from SpO2 Sensor 70 Pulse Rhythm Pulse Strength Respiratory Rate 21 Respiratory Effort / Characteristics Respiratory Depth Respiratory Pattern Blood Pressure 137/67 Blood Pressure Mean 90 Blood Pressure Position Pulse Oximetry 98 Oxygen Delivery Method Sepsis Recent Fever Within 48 Hours Sepsis New/Unexplained Change in Mental Status Sepsis Action Taken by Nursing Laboratory Data Result diagrams: 11/11/20 03:40 11/11/20 03:40 Lab Results 11/10/20 11/10/20 11/10/20 Range/Units 13:14 13:14 14:26 WBC 6.76 (4.8-10.8) K/uL RBC 5.06 (4.7-6.1) M/uL Hgb 17.1 (14.0-18.0) g/dL Hct 49.5 (42-52) % MCV 97.8 (80-100) fL MCH 33.8 (25-34) pg MCHC 34.5 (32-36) g/dL RDW Std Deviation 51.8 H (36.4-46.3) fL RDW Coeff of Sawyer 14.5 (11.5-14.5) % Plt Count 201 (130-400) K/uL MPV 9.8 (7.4-10.4) fL Immature Gran % (Auto) 0.1 % Neut % (Auto) 72.4 % Lymph % (Auto) 18.5 % [place] % (Auto) 4.7 % Eos % (Auto) 4.0 % Baso % (Auto) 0.3 % Neut # (Auto) 4.89 (1.4-6.5) K/uL Lymph # (Auto) 1.25 (1.2-3.4) K/uL [place] # (Auto) 0.32 (0.11-0.59) K/uL Eos # (Auto) 0.27 (0-0.5) K/uL Baso # (Auto) 0.02 (0-0.2) K/uL Immature Gran # (Auto) 0.01 (0.00-0.02) K/uL PT (9.0-12.0) Seconds INR (0.9-1.1) APTT (21.0-31.0) Seconds PTT Ratio Sodium (136-145) mmol/L Potassium (3.5-5.1) mmol/L Chloride (98-107) mmol/L Carbon Dioxide (21-32) mmol/L Anion Gap (3-11) BUN (7-18) mg/dl Creatinine (0.6-1.4) mg/dl Est Cr Clr Drug Dosing ml/min Est GFR ( Amer) ml/min Est GFR (Non-Af Amer) ml/min BUN/Creatinine Ratio (10-20) Glucose (70-99) mg/dl Calcium (8.5-10.1) mg/dl Total Bilirubin (0.2-1) mg/dl AST (15-37) U/L ALT (12-78) U/L Alkaline Phosphatase (45-117) U/L Total Creatine Kinase (39-308) U/L CK-MB (CK-2) (0.5-3.6) ng/ml CK/CKMB % Calc (0-3.0) Troponin I (0-0.045) ng/ml Total Protein (6.4-8.2) gm/dl Albumin (3.4-5.0) gm/dl Globulin (2.5-4.0) gm/dl Albumin/Globulin Ratio (0.9-2) Lipase (73-393) U/L COVID-19 Eval Order Covid19 at [facility] SARS-CoV-2 (PCR) NEGATIVE (Negative) 11/10/20 11/10/20 Range/Units 14:26 14:26 WBC (4.8-10.8) K/uL RBC (4.7-6.1) M/uL Hgb (14.0-18.0) g/dL Hct (42-52) % MCV (80-100) fL MCH (25-34) pg MCHC (32-36) g/dL RDW Std Deviation (36.4-46.3) fL RDW Coeff of Sawyer (11.5-14.5) % Plt Count (130-400) K/uL MPV (7.4-10.4) fL Immature Gran % (Auto) % Neut % (Auto) % Lymph % (Auto) % [place] % (Auto) % Eos % (Auto) % Baso % (Auto) % Neut # (Auto) (1.4-6.5) K/uL Lymph # (Auto) (1.2-3.4) K/uL [place] # (Auto) (0.11-0.59) K/uL Eos # (Auto) (0-0.5) K/uL Baso # (Auto) (0-0.2) K/uL Immature Gran # (Auto) (0.00-0.02) K/uL PT 15.4 H (9.0-12.0) Seconds INR 1.6 H (0.9-1.1) APTT 30.2 (21.0-31.0) Seconds PTT Ratio 1.1 Sodium 137 (136-145) mmol/L Potassium 4.6 (3.5-5.1) mmol/L Chloride 102 (98-107) mmol/L Carbon Dioxide 31 (21-32) mmol/L Anion Gap 4.0 (3-11) BUN 44 H (7-18) mg/dl Creatinine 1.67 H (0.6-1.4) mg/dl Est Cr Clr Drug Dosing 31.2 ml/min Est GFR ( Amer) 42.6 ml/min Est GFR (Non-Af Amer) 36.8 ml/min BUN/Creatinine Ratio 26.3 H (10-20) Glucose 119 H (70-99) mg/dl Calcium 9.4 (8.5-10.1) mg/dl Total Bilirubin 0.9 (0.2-1) mg/dl AST 23 (15-37) U/L ALT 37 (12-78) U/L Alkaline Phosphatase 106 (45-117) U/L Total Creatine Kinase 70 (39-308) U/L CK-MB (CK-2) 2.1 (0.5-3.6) ng/ml CK/CKMB % Calc 3.0 (0-3.0) Troponin I 0.086 H* (0-0.045) ng/ml Total Protein 8.3 H (6.4-8.2) gm/dl Albumin 3.6 (3.4-5.0) gm/dl Globulin 4.7 H (2.5-4.0) gm/dl Albumin/Globulin Ratio 0.8 L (0.9-2) Lipase 181 (73-393) U/L COVID-19 Eval Order SARS-CoV-2 (PCR) (Negative) Administered Medications Aspirin (Aspirin 81 Mg Ectab) 81 mg PO DAILY ADRIAN Stop: 12/11/20 08:59 Last Admin: 11/11/20 09:47 Dose: 81 mg Documented by: [id number] Atorvastatin Calcium (Atorvastatin 40 Mg Tab) 40 mg PO DAILY ADRIAN Stop: 12/11/20 08:59 Last Admin: 11/11/20 09:47 Dose: 40 mg Documented by: [id number] Carvedilol (Carvedilol 6.25 Mg Tab) 6.25 mg PO BID ADRIAN Stop: 12/10/20 20:59 Last Admin: 11/11/20 09:47 Dose: 6.25 mg Documented by: [id number] Admin: 11/10/20 19:50 Dose: 6.25 mg Documented by: [id number] Digoxin (Digoxin 0.125 Mg Tab) 0.125 mg PO QAM ADRIAN Stop: 12/11/20 08:59 Last Admin: 11/11/20 09:47 Dose: 0.125 mg Documented by: [id number] Donepezil HCl (Donepezil Hcl 10 Mg Tab) 10 mg PO HS ADRIAN Stop: 12/10/20 20:59 Last Admin: 11/10/20 19:51 Dose: 10 mg Documented by: [id number] Famotidine (Famotidine 20 Mg Tab) 20 mg PO BIDM [facility] Stop: 12/10/20 17:59 Last Admin: 11/11/20 17:04 Dose: 20 mg Documented by: [id number] Admin: 11/11/20 09:47 Dose: 20 mg Documented by: [id number] Admin: 11/10/20 19:51 Dose: 20 mg Documented by: [id number] Finasteride (Finasteride 5 Mg Tab) 5 mg PO QAM [facility] Stop: 12/11/20 08:59 Last Admin: 11/11/20 09:47 Dose: 5 mg Documented by: [id number] Gabapentin (Gabapentin 300 Mg Cap) 300 mg PO TID [facility] Stop: 12/10/20 20:59 Last Admin: 11/11/20 14:21 Dose: 300 mg Documented by: [id number] Admin: 11/11/20 09:46 Dose: 300 mg Documented by: [id number] Admin: 11/10/20 19:51 Dose: 300 mg Documented by: [id number] Isosorbide Mononitrate (Isosorbide [place] Extended Rel 60 Mg Tabcr) 60 mg PO HS [facility] Stop: 12/10/20 20:59 Last Admin: 11/10/20 19:51 Dose: 60 mg Documented by: [id number] Loratadine (Loratadine 10 Mg Tab) 10 mg PO DAILY [facility] Stop: 12/11/20 08:59 Last Admin: 11/11/20 09:46 Dose: 10 mg Documented by: [id number] Losartan Potassium (Losartan Potassium 50 Mg Tab) 50 mg PO BIDM [facility] Stop: 12/10/20 17:59 Last Admin: 11/11/20 09:46 Dose: 50 mg Documented by: [id number] Admin: 11/10/20 19:52 Dose: 50 mg Documented by: [id number] Miscellaneous (Restasis 0.05 % - Order Awaiting Action) 1 ea N/A QS [facility] Stop: 12/11/20 00:00 Last Admin: 11/11/20 16:01 Dose: Not Given Documented by: [id number] Admin: 11/11/20 09:48 Dose: Not Given Documented by: [id number] Admin: 11/10/20 22:52 Dose: Not Given Documented by: [id number] Multivitamins (Multivitamin Tab) 1 tab PO QAM [facility] Stop: 12/11/20 08:59 Last Admin: 11/11/20 09:46 Dose: 1 tab Documented by: [id number] Pantoprazole Sodium (Pantoprazole 40 Mg Tab) 40 mg PO QAM [facility] Stop: 12/11/20 08:59 Last Admin: 11/11/20 09:47 Dose: 40 mg Documented by: [id number] Vitamin D (Cholecalciferol 1,000 Units 25 Mcg Tab) 2,000 units PO DAILY [facility] Stop: 12/11/20 08:59 Last Admin: 11/11/20 09:46 Dose: 2,000 units Documented by: [id number] Warfarin Sodium (Warfarin Sod 2.5 Mg Tab) 2.5 mg PO [email or web address] [facility] Stop: 12/11/20 15:59 Last Admin: 11/11/20 17:04 Dose: 2.5 mg Documented by: [id number] Warfarin Sodium (Warfarin Sod 5 Mg Tab) 5 mg PO [email or web address] [facility] Stop: 12/10/20 17:59 Last Admin: 11/10/20 19:54 Dose: 5 mg Documented by: [id number] Discontinued Medications Albuterol (Albut/Ipratrop 3mg/0.5mg Neb 3 Ml Vial) 3 ml NEB NOW STA Stop: 11/10/20 12:54 Last Admin: 11/10/20 13:22 Dose: 3 ml Documented by: [id number] Albuterol (Albut/Ipratrop 3mg/0.5mg Neb 3 Ml Vial) 3 ml NEB NOW STA Stop: 11/10/20 14:46 Last Admin: 11/10/20 15:06 Dose: 3 ml Documented by: [id number] Sodium Chloride (Nss 1000ml) 1,000 mls @ 999 mls/hr IV .Q1H1M ONE Stop: 11/10/20 17:13 Last Infusion: 11/10/20 17:29 Dose: 0 mls/hr Documented by: [id number] Admin: 11/10/20 16:45 Dose: 999 mls/hr Documented by: [id number] Sodium Chloride (Nss 1000ml) 1,000 mls @ 100 mls/hr IV .Q10H ADRIAN Stop: 11/11/20 03:59 Last Infusion: 11/11/20 05:22 Dose: 0 mls/hr Documented by: [id number] Admin: 11/10/20 19:13 Dose: 100 mls/hr Documented by: [id number] Ioversol (Optiray 320 125ml) 118 ml IV ONCE ONE Stop: 11/10/20 15:53 Last Admin: 11/10/20 15:52 Dose: 118 ml Documented by: [id number] Methylprednisolone (Methylprednisolone 125 Mg/2 Ml Vial) 60 mg IV NOW STA Stop: 11/10/20 12:54 Last Admin: 11/10/20 13:06 Dose: 60 mg Documented by: [id number] Oxymetazoline HCl (Oxymetazoline 0.05% 30 Ml Btl) 1 sprays ANA NOW ONE Stop: 11/10/20 14:47 Last Admin: 11/10/20 15:04 Dose: 1 sprays Documented by: [id number] Tranexamic Acid (Txa 10% Non-Iv Routes 100 Mg/Ml Vial) 1,000 mg TOP ONE ONE Stop: 11/10/20 14:47 Last Admin: 11/10/20 15:04 Dose: 1,000 mg Documented by: [id number] Imaging Data Radiologist's Impression: Chest X-Ray 11/10/20 12:53 SINGLE VIEW CHEST CLINICAL HISTORY: Atypical chest pain. FINDINGS: An AP, portable, upright chest radiograph is compared to study dated 10/09/2020 and correlated with chest CT dated 02/15/2017. A 3-lead cardiac pacemaker is unchanged in position and partially obscures the left upper chest. The patient is status post midline sternotomy and cardiac valve surgery. The heart is enlarged noting atherosclerotic calcification of the thoracic aorta. The pulmonary vasculature is noncongested. Emphysema with chronic interstitial thickening and changes of chronic interstitial lung disease is similar to previous. There is no evidence of superimposed airspace consolidation or large pleural effusion. No pneumothorax is seen. The skeletal structures are osteopenic. The bony thorax is grossly intact. IMPRESSION: 1. Cardiomegaly and cardiac pacemaker. There is no radiographic evidence of congestive failure. 2. Emphysema and chronic parenchymal changes as above. 3. There is no evidence of superimposed airspace consolidation or large pleural effusion. ACT 112: Negative or not required by law. Electronically signed by: Glen Noriega M.D. 11/10/2020 1:57 PM Chest CTA 11/10/20 14:57 CT angio chest PE protocol CT DOSE: 413.64 mGycm HISTORY: 85 years-old Male with PE. Acute shortness of breath TECHNIQUE: Multiple CTA images of the chest were obtained after the intravenous administration of 118 ml Optiray. Coronal and sagittal MIPS were obtained from the axial data set and were submitted for review. All measurements were obtained according to NASCET criteria. A dose lowering technique was utilized adhering to the principles of ALARA. COMPARISON: Chest radiograph of same day, CT abdomen and pelvis 10/09/2020, chest CT 02/15/2017. FINDINGS: CTA: Moderate cardiomegaly. Prior median sternotomy with aortic valvular prosthesis. Left subclavian pacer. Left heart structures are not well opacified and therefor e cannot be evaluated. Extensive calcification of the thoracic aorta. Papillary muscle calcifications. Prior CABG. The pulmonary arterial tree is opacified to the level of the subsegmental branches and demonstrates no filling defects to suggest thromboembolic disease. Reflux of contrast into the IVC. CT CHEST: Heterogeneous thyroid. Subcarinal adenopathy measures up to 1.5 cm in short axis, unchanged. Mildly prominent paratracheal and prevascular nonenlarged lymph nodes. No pneumothorax, pleural effusion, airspace consolidation or overt pulmonary edema. Mild emphysema. Subpleural cystic changes with subpleural reticulation compatible with chronic interstitial lung disease has progressed from 2017. 11 mm subpleural solid nodule of the right middle lobe lateral segment is unchanged dating back to at least 2017 suggestive of benign etiology. 4 mm solid nodule of the right lung apex on image [id number] appears to be new from 2017. Central airways are patent. No acute process of the imaged upper abdomen. Colonic diverticulosis. Partially imaged exophytic 1.5 cm intermediate density lesion of the superior pole right kidney is indeterminate. Unremarkable soft tissues. Degenerative changes of the spine and shoulders. IMPRESSION: 1. Cardiomegaly. No pulmonary emboli identified. 2. Emphysema with chronic interstitial lung disease, progressed from 2017. 3. Unchanged likely benign and subcarinal adenopathy. 4. No pleural effusion or airspace consolidation to suggest pneumonia. ACT 112: Negative or not required by law. The above report was generated using voice recognition software. It may contain grammatical, syntax or spelling errors. Electronically signed by: Luke Kaur M.D. 11/10/2020 4:04 PM Discharge Plan Visit Data Chief Complaint: Respiratory Problems Stated Complaint: Hypoxia ED Provider: Fred Nichols Discharge Problem: Hypoxia, Elevated troponin Patient Disposition: Admitted As Inpatient Discharge Instructions Interventions: ED Discharge Assessment Last Done: 11/10/20 17:31
[2020-11-10] MEDS ORDERED: NITROGLYCERIN SL 0.4 MG/TAB TAB SL SCH (18:00)
[2020-11-10] MEDS ORDERED: NON-FORMULARY MEDICATION (Acetaminophen [Tylenol] 325 mg Capsule) PO PRN (18:00)
[2020-11-10] MEDS ORDERED: ONDANSETRON INJ 2 MG/ML 2 ML VIAL IV PRN (18:00)
[2020-11-10] MEDS ORDERED: WARFARIN SOD 5 MG TAB PO SCH (18:00)
[2020-11-10] MEDS ORDERED: traMADol HCL 50 MG TABLET PO PRN (18:00)
[2020-11-10] MEDS ORDERED: SODIUM CHLORIDE 0.9% 1000ML 1,000 ML IV SCH (18:00)
[2020-11-10] MEDS ORDERED: ACETAMINOPHEN 325 MG TAB PO PRN (18:00)
[2020-11-10] MEDS ORDERED: MELATONIN 3 MG TAB PO PRN (18:00)
[2020-11-10] MEDS: carvediloL 6.25 MG TAB PO SCH (19:50)
[2020-11-10] MEDS: GABAPENTIN 300 MG CAP PO SCH (19:51)
[2020-11-10] MEDS: DONEPEZIL HCL 10 MG TAB PO SCH (19:51)
[2020-11-10] MEDS: FAMOTIDINE 20 MG TAB PO SCH (19:51)
[2020-11-10] MEDS: ISOSORBIDE MONO EXTENDED REL 60 MG TABCR PO SCH (19:51)
[2020-11-10] MEDS: LOSARTAN POTASSIUM 50 MG TAB PO SCH (19:52)
[2020-11-10] MEDS ORDERED: NON-FORMULARY MEDICATION (Glucos Sul 2kcl-Msm-Chond-C-Mn [Glucosamine Chondroitin] 550-30- PO SCH (21:00)
[2020-11-11 04:16] LABS: Eosinophils # (auto) 0.01 K/uL (0-0.5); Eosinophils % (auto) 0.1 %; Hematocrit (blood only) 44.1 % (42-52); Hemoglobin 15.1 g/dL (14.0-18.0); Immature Granulocytes # (auto) 0.01 K/uL (0.00-0.02); Immature Granulocytes % (auto) 0.1 %; Lymphocytes # (auto) 0.95 K/uL (1.2-3.4); Mean Corpuscular Hemoglobin 33.4 pg (25-34); Mean Corpuscular Hgb Conc 34.2 g/dL (32-36); Mean Corpuscular Volume 97.6 fL (80-100); Mean Platelet Volume 9.6 fL (7.4-10.4); Monocytes # (auto) 0.31 K/uL (0.11-0.59); Monocytes % (auto) 4.3 %; Neutrophils # (auto) 6.01 K/uL (1.4-6.5); Neutrophils % (auto) 82.5 %; Platelet Count 201 K/uL (130-400); RDW Coefficient of Variation 14.4 % (11.5-14.5); RDW Standard Deviation 51.5 fL (36.4-46.3); Red Blood Count 4.52 M/uL (4.7-6.1); White Blood Count 7.29 K/uL (4.8-10.8)
[2020-11-11 04:44] LABS: Albumin Level 3.1 gm/dl (3.4-5.0); Calcium 8.5 mg/dl (8.5-10.1); Creatinine Clr Calc Pharmacy 31.2 ml/min; Est GFR (African American) 42.6 ml/min; Est GFR (Non-African American) 36.8 ml/min; Magnesium 2.2 mg/dl (1.8-2.4); Potassium 4.5 mmol/L (3.5-5.1)
[2020-11-11 04:47] LABS: Albumin Globulin Ratio 0.8 (0.9-2); Bilirubin,Total 0.7 mg/dl (0.2-1); Globulin 3.9 gm/dl (2.5-4.0)
--- NOTE | 2020-11-11 06:54 | Electrocardiogram Report ---
Test Reason : Blood Pressure : / mmHG Vent. Rate : 070 BPM Atrial Rate : 070 BPM P-R Int : 000 ms QRS Dur : 152 ms QT Int : 414 ms P-R-T Axes : 000 -58 073 degrees QTc Int : 447 ms Poor data quality, interpretation may be adversely affected Ventricular-paced rhythm Abnormal ECG When compared with ECG of 09-OCT-2020 15:40, Vent. rate has decreased BY 2 BPM Confirmed by Thierno Estrada ([id number]) on 11/11/2020 6:54:22 AM Referred By: Confirmed By:Thierno Estrada
--- NOTE | 2020-11-11 08:23 | Cardiology Consultation ---
Date of Consultation November 11, 2020 Assessment & Plan (1) Epistaxis: (2) Hypoxia: (3) Elevated troponin: (4) Ischemic cardiomyopathy: (5) Valvular heart disease: (6) Pacemaker: This is an elderly patient with multiple medical problems who was admitted after hypoxic episode at his primary care physician's office. He received a breathing treatment while being transported to the hospital and after admission he has had good oxygen levels. He had a wide-complex tachycardia last night la sting 30 seconds. He has a biventricular pacemaker and according to records it does not have defibrillator capabilities. I am uncertain as to why the defibrillator was not implanted. Currently he is stable. I would keep him on telemetry for now. History of Present Illness Attending Physician: Melvin Real, DO History of Present Illness This is an 85-year-old male patient with a complex cardiac history as outlined below. He is somewhat confused but according to records he was in his usual state of health but went to see his primary care physician yesterday due to some epistaxis and blood on his tissues whenever he blows his nose. While there he was noted to be cyanotic. Pulse ox indicated an oxygen level of 75%. The patient was transferred via ambulance to the emergency department and on the way to the hospital he received a breathing treatment and by the time he arrived at the emergency department his oxygen saturation was in the 90s. He has remained well saturated since hospital admission without a reoccurrence of cyanosis. He has no ongoing complaints today however, he did have a run of approximately 30 seconds of wide-complex tachycardia through the night. According to records he has a BiV pacemaker without defibrillator capabilities. Reviewing the telemetry myself it looks like the patient broke into a paced rhythm. It does not look like antitacky pacing which would be consistent with a history of not having a defibrillator capability with his implant. The event was asymptomatic. It was noted by nursing. Electrolytes seem to be in order. He had a slight elevation in his troponins which seems to be chronic. Past medical history: 1.Atherosclerotic coronary disease with remote inferior myocardial infarction in 1983. 2.Coronary bypass grafting 1983 with BELLAMY graft to LAD, saphenous vein graft to the right coronary artery. 3.Acute saphenous vein graft thrombosis in the setting of antiplatelet withdrawal 2009. 4.Ischemic cardiomyopathy status post biventricular pacer/ NOT defibrillator implantation. Infrafone, Model - Consulta CHRONIC MANAGER-P [id number] October 22, 2012. GEN change October 2019 at [facility]. 5.Mixed valvular heart disease , severeaortic stenosis and koewryqh-yw-opzuau mitral insufficiency. 6.Past paroxysmal, now chronic atrial fibrillation. 7.Chronic obstructive lung disease, pulmonary fibrosis with hypoxia. 8.Class III congestive heart failure, hospitalization October 2017. 9.Repeat hospitalization on 02/10/2018 with recurrent acute dyspnea and acute on chronic congestive heart failure. 10. Status post TAVR 20. 6 mm Lee Óscar S3 valve via left femoral cutdown July 28, 2018 Allergies Allergy/AdvReac Type Severity Reaction Status Date / Time oxycodone Allergy Severe HALLUCINATI Verified 11/10/20 14:43 ONS TASHA Inhibitors AdvReac Intermediate Cough Verified 11/10/20 14:43 rosuvastatin AdvReac Intermediate CONSTIPATIO Verified 11/10/20 14:43 N niacin AdvReac Mild FLUSHING Verified 11/10/20 14:43 paroxetine AdvReac Mild drowsiness Verified 11/10/20 14:43 Home Medications Medication Instructions Recorded Confirmed Type acetaminophen [Tylenol] 650 mg PO Q8H PRN 02/10/18 11/10/20 History isosorbide mononitrate 60 mg PO HS 02/10/18 11/10/20 History multivitamin 1 tab PO QAM 02/10/18 11/10/20 History pantoprazole 40 mg PO QAM 02/10/18 11/10/20 History azelastine 205.5 mcg (0.15 %) 2 spray INTRANASAL BID PRN 11/23/18 11/10/20 History nasal spray carvedilol 6.25 mg tablet 6.25 mg PO BID tab 11/23/18 11/10/20 History furosemide 40 mg tablet 40 mg PO DAILY tab 11/23/18 10/09/20 History ipratropium bromide 42 mcg (0.06 2 sprays INTNAS BID PRN ml 11/23/18 11/10/20 History %) nasal spray losartan 50 mg tablet 50 mg PO BIDM tab 11/23/18 11/10/20 History cyclosporine 0.05 % eye drops in a 1 drp OPHTHALMIC (EYE) BID ea 12/04/18 11/10/20 History dropperette loratadine 10 mg tablet 10 mg PO DAILY tab 12/04/18 11/10/20 History melatonin 3 mg tablet 3 mg PO HS PRN #1 tab 06/04/19 11/10/20 Rx cholecalciferol (vitamin D3) 25 2,000 unit PO DAILY cap 09/20/19 11/10/20 History mcg (1,000 unit) capsule digoxin [Digitek] 125 mcg PO QAM 03/28/20 11/10/20 History fluticasone propionate [Flonase 1 sprays INTNAS BID 03/28/20 11/10/20 History Allergy Relief] finasteride 5 mg tablet 5 mg PO QAM #90 tab 07/12/20 11/10/20 Rx alendronate 70 mg PO PIMENTEL 10/09/20 11/10/20 History atorvastatin 40 mg PO DAILY 10/09/20 11/10/20 History calcitonin (salmon) 1 spray INTRANASAL DAILY 10/09/20 11/10/20 History donepezil 10 mg PO HS 10/09/20 11/10/20 History gabapentin 300 mg PO TID 10/09/20 11/10/20 History nitroglycerin 0.4 mg SUBLINGUAL UD 10/09/20 11/10/20 History tramadol 25 - 50 mg PO Q4H PRN 10/09/20 11/10/20 History vit C-vit U-bufwyb-ditn-lutein 1 cap PO DAILY 10/09/20 11/10/20 History [PreserVision Lutein] aspirin 81 mg PO DAILY 11/10/20 11/10/20 History coenzyme Q10 [CoQ-10] 200 mg PO DAILY 11/10/20 11/10/20 History famotidine 20 mg PO BIDM 11/10/20 11/10/20 History glucos sul 0MJb-kip-afapd-C-Mn 1 cap PO BID 11/10/20 11/10/20 History [Glucosamine Chondroitin] warfarin 2.5 mg PO SUTUWETHSA 11/10/20 11/10/20 History warfarin 5 mg PO MOFR 11/10/20 11/10/20 History carvedilol 12.5 mg PO BID #60 tab 11/12/20 Rx Patient History Medical History CAD (coronary artery disease) Remote DE 1983 with CABG x 2 (BELLAMY-LAD, SVG-RCA). 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 Follows with [facility] cardiology. Chronic kidney disease (CKD), stage II (mild) Congestive heart failure, NYHA class III Hospitalization 10/2017, 02/2018 for acute on chronic CHF COPD (chronic obstructive pulmonary disease) History of TIA (transient ischemic attack) OVER 5 YEARS AGO AND NO RESIDUAL EFFECTS Hx of myocardial infarction 1983 AND HAD CABG X2 Ischemic cardiomyopathy S/P BiV pacer (NOT defibfillator) 2012, with generator change 10/2019 at [facility]. Most recent echo showed EF 50% (12/13/19) Mitral valve disorder Pacemaker Medtronic, generator change 10/05/19 at [facility]. Medtronic. Last interrogation 02/02/20. 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 No significant prosthesis stenosis or regurg on 12/2019 echo. Severe mitral regurgitation with eccentric jet posteriorly directed. Surgical History Colonoscopy (08/25/12) H/O carotid endarterectomy (~1997) 1997 on right History of coronary artery bypass graft x 2 (~1983) 1983 - FOLLOWS WITH [facility] History of repair of inguinal hernia (11/06/18) Incarcerated right inguinal hernia repair and femoral hernia repair 11/06/18 Dr. Cho Hx of aortic valve replacement (~05/2018) [facility] 05/2018 S/P hernia repair RIGHT INGUINAL HERNIA REPAIR S/P left inguinal hernia repair (04/04/20) Open Sliding indirect Left Inguinal Hernia Repair, Direct weakness,with Mesh Placement, Excision Lipoma of Cord Dr. [place] 04/04/2020 Status post placement of cardiac pacemaker (~2013) 2013, [employer] - FOLLOWS WITH [facility] LAST CHECK 05/2018 AND NEXT CHECK WILL BE 10/2018 Status post right knee replacement Stented coronary artery (~2014) 2014 ONE STENT WAS PLACED AND FOLLOWS WITH [facility] Family History Other Heart disease Social History Smoking Status: Former smoker Second Hand Exposure: No; Do You Dip or Chew Tobacco: No; Tobacco Cessation Education Requested by Patient: No Hx Alcohol Use: No Hx Substance Use: No Preferred Language: Bengali Communication Ability: Effective Supreme Court Judge Required: No Beliefs That Will Affect Care: None Current Living Situation: Alone current occupational status: retired Feels Safe at Home: Yes Assistive Devices: Cane, Glasses, Hearing Aid - Left and Hearing Aid - Right Review of Systems Review of Systems: Unobtainable due to cognitive status Physical Exam Physical Exam: General: no acute distress and stated age Head: normocephalic, no masses, lesions, tenderness or abnormalities Eyes: conjunctiva are pink and non-injected, sclera clear Neck: supple, no adenopathy, no bruits, normal jugular venous pulse, no hepatojugular reflux Chest: normal shape and normal respiratory effort Lungs: clear to auscultation and percussion Cardiac Exam: - regular rate & rhythm, no murmurs gallops or rubs - normal S1, normal S2 Pulses: 2(+) throughout Abdomen: abdomen soft, non-tender, no abnormal masses and no hepatosplenomegaly Musculoskeletal: no gait disturbance, no joint inflammation, no deforming arthritis Extremities: no edema and no cyanosis Neuro: grossly normal exam Results & Data ([facility]) Vital Signs (Past 12 Hours) Vital Signs Temp Pulse Resp BP BP Pulse Ox 11/11/20 07:44 36.8 C 70 20 114/58 L 98 11/11/20 02:57 36.5 C 71 18 110/54 L 92 11/10/20 23:52 107/53 L 94 11/10/20 22:47 36.6 C 70 20 151/78 H 94 Laboratory Results Laboratory Results - last 24 hr 11/10/20 11/10/20 11/10/20 13:14 13:14 14:26 WBC 6.76 RBC 5.06 Hgb 17.1 Hct 49.5 MCV 97.8 MCH 33.8 MCHC 34.5 RDW Std Deviation 51.8 H RDW Coeff of Sawyer 14.5 Plt Count 201 MPV 9.8 Immature Gran % (Auto) 0.1 Neut % (Auto) 72.4 Lymph % (Auto) 18.5 Hendry % (Auto) 4.7 Eos % (Auto) 4.0 Baso % (Auto) 0.3 Neut # (Auto) 4.89 Lymph # (Auto) 1.25 Hendry # (Auto) 0.32 Eos # (Auto) 0.27 Baso # (Auto) 0.02 Immature Gran # (Auto) 0.01 PT INR APTT PTT Ratio Sodium Potassium Chloride Carbon Dioxide Anion Gap BUN Creatinine Est Cr Clr Drug Dosing Est GFR ( Amer) Est GFR (Non-Af Amer) BUN/Creatinine Ratio Glucose Calcium Magnesium Total Bilirubin AST ALT Alkaline Phosphatase Total Creatine Kinase CK-MB (CK-2) CK/CKMB % Calc Troponin I Total Protein Albumin Globulin Albumin/Globulin Ratio Lipase COVID-19 Eval Order Covid19 at [facility] SARS-CoV-2 (PCR) NEGATIVE 11/10/20 11/10/20 11/10/20 14:26 14:26 20:04 WBC RBC Hgb Hct MCV MCH MCHC RDW Std Deviation RDW Coeff of Sawyer Plt Count MPV Immature Gran % (Auto) Neut % (Auto) Lymph % (Auto) Hendry % (Auto) Eos % (Auto) Baso % (Auto) Neut # (Auto) Lymph # (Auto) Hendry # (Auto) Eos # (Auto) Baso # (Auto) Immature Gran # (Auto) PT 15.4 H INR 1.6 H APTT 30.2 PTT Ratio 1.1 Sodium 137 Potassium 4.6 Chloride 102 Carbon Dioxide 31 Anion Gap 4.0 BUN 44 H Creatinine 1.67 H Est Cr Clr Drug Dosing 31.2 Est GFR ( Amer) 42.6 Est GFR (Non-Af Amer) 36.8 BUN/Creatinine Ratio 26.3 H Glucose 119 H Calcium 9.4 Magnesium Total Bilirubin 0.9 AST 23 ALT 37 Alkaline Phosphatase 106 Total Creatine Kinase 70 CK-MB (CK-2) 2.1 CK/CKMB % Calc 3.0 Troponin I 0.086 H* 0.104 H* Total Protein 8.3 H Albumin 3.6 Globulin 4.7 H Albumin/Globulin Ratio 0.8 L Lipase 181 COVID-19 Eval Order SARS-CoV-2 (PCR) 11/11/20 11/11/20 11/11/20 03:40 03:40 03:40 WBC 7.29 RBC 4.52 L Hgb 15.1 Hct 44.1 MCV 97.6 MCH 33.4 MCHC 34.2 RDW Std Deviation 51.5 H RDW Coeff of Sawyer 14.4 Plt Count 201 MPV 9.6 Immature Gran % (Auto) 0.1 Neut % (Auto) 82.5 Lymph % (Auto) 13.0 Hendry % (Auto) 4.3 Eos % (Auto) 0.1 Baso % (Auto) 0.0 Neut # (Auto) 6.01 Lymph # (Auto) 0.95 L Hendry # (Auto) 0.31 Eos # (Auto) 0.01 Baso # (Auto) 0.00 Immature Gran # (Auto) 0.01 PT INR APTT PTT Ratio Sodium 138 Potassium 4.5 Chloride 105 Carbon Dioxide 31 Anion Gap 2.0 L BUN 42 H Creatinine 1.67 H Est Cr Clr Drug Dosing 31.2 Est GFR ( Amer) 42.6 Est GFR (Non-Af Amer) 36.8 BUN/Creatinine Ratio 25.0 H Glucose 115 H Calcium 8.5 Magnesium 2.2 Total Bilirubin 0.7 AST 19 ALT 33 Alkaline Phosphatase 85 Total Creatine Kinase CK-MB (CK-2) CK/CKMB % Calc Troponin I 0.112 H* Total Protein 7.0 Albumin 3.1 L Globulin 3.9 Albumin/Globulin Ratio 0.8 L Lipase COVID-19 Eval Order SARS-CoV-2 (PCR) Medications Administered Current Inpatient Medications Acetaminophen (Acetaminophen 325 Mg Tab) 650 mg PO Q4H PRN PRN Reason: Pain or Fever Stop: 12/10/20 17:59 Aspirin (Aspirin 81 Mg Ectab) 81 mg PO DAILY [facility] Stop: 12/11/20 08:59 Last Admin: 11/11/20 09:47 Dose: 81 mg Documented by: Atorvastatin Calcium (Atorvastatin 40 Mg Tab) 40 mg PO DAILY ADRIAN Stop: 12/11/20 08:59 Last Admin: 11/11/20 09:47 Dose: 40 mg Documented by: Carvedilol (Carvedilol 6.25 Mg Tab) 6.25 mg PO BID ADRIAN Stop: 12/10/20 20:59 Last Admin: 11/11/20 09:47 Dose: 6.25 mg Documented by: Digoxin (Digoxin 0.125 Mg Tab) 0.125 mg PO QAM ADRIAN Stop: 12/11/20 08:59 Last Admin: 11/11/20 09:47 Dose: 0.125 mg Documented by: Donepezil HCl (Donepezil Hcl 10 Mg Tab) 10 mg PO HS ADRIAN Stop: 12/10/20 20:59 Last Admin: 11/10/20 19:51 Dose: 10 mg Documented by: Famotidine (Famotidine 20 Mg Tab) 20 mg PO BIDM [facility] Stop: 12/10/20 17:59 Last Admin: 11/11/20 09:47 Dose: 20 mg Documented by: Finasteride (Finasteride 5 Mg Tab) 5 mg PO QAM [facility] Stop: 12/11/20 08:59 Last Admin: 11/11/20 09:47 Dose: 5 mg Documented by: Gabapentin (Gabapentin 300 Mg Cap) 300 mg PO TID [facility] Stop: 12/10/20 20:59 Last Admin: 11/11/20 09:46 Dose: 300 mg Documented by: Isosorbide Mononitrate (Isosorbide Hendry Extended Rel 60 Mg Tabcr) 60 mg PO HS [facility] Stop: 12/10/20 20:59 Last Admin: 11/10/20 19:51 Dose: 60 mg Documented by: Loratadine (Loratadine 10 Mg Tab) 10 mg PO DAILY [facility] Stop: 12/11/20 08:59 Last Admin: 11/11/20 09:46 Dose: 10 mg Documented by: Losartan Potassium (Losartan Potassium 50 Mg Tab) 50 mg PO BIDM [facility] Stop: 12/10/20 17:59 Last Admin: 11/11/20 09:46 Dose: 50 mg Documented by: Melatonin (Melatonin 3 Mg Tab) 3 mg PO HS PRN PRN Reason: sleep Stop: 12/10/20 17:59 Miscellaneous (Restasis 0.05 % - Order Awaiting Action) 1 ea N/A QS [facility] Stop: 12/11/20 00:00 Last Admin: 11/11/20 09:48 Dose: Not Given Documented by: Multivitamins ([facility]itamin Tab) [facility] Stop: 12/11/20 08:59 Last Admin: 11/11/20 09:46 Dose: 1 tab Documented by: Nitroglycerin (Nitroglycerin Sl 0.4 Mg/Tab Tab) 0.4 mg SL UD [facility] Stop: 12/10/20 17:59 Ondansetron HCl (Ondansetron Inj 2 Mg/Ml 2 Ml Vial) 4 mg IV Q6H PRN PRN Reason: Nausea Stop: 12/10/20 17:59 Pantoprazole Sodium (Pantoprazole 40 Mg Tab) [facility] [place] Stop: 12/11/20 08:59 Last Admin: 11/11/20 09:47 Dose: 40 mg Documented by: Tramadol HCl (Tramadol Hcl 50 Mg Tablet) 50 mg PO Q4H PRN PRN Reason: Moderate Pain Stop: 12/10/20 17:59 Vitamin D (Cholecalciferol 1,000 Units 25 Mcg Tab) 2,000 units PO DAILY [facility] Stop: 12/11/20 08:59 Last Admin: 11/11/20 09:46 Dose: 2,000 units Documented by: Warfarin Sodium (Warfarin Sod 2.5 Mg Tab) 2.5 mg PO [email or web address] [facility] Stop: 12/11/20 15:59 Warfarin Sodium (Warfarin Sod 5 Mg Tab) 5 mg PO [email or web address] [facility] Stop: 12/10/20 17:59 Last Admin: 11/10/20 19:54 Dose: 5 mg Documented by:
[2020-11-11] MEDS ORDERED: NON-FORMULARY MEDICATION (Coenzyme Q10 [Coq-10] 100 mg Capsule) PO SCH (09:00)
[2020-11-11] MEDS: LORATADINE 10 MG TAB PO SCH (09:46)
[2020-11-11] MEDS: GABAPENTIN 300 MG CAP PO SCH ×3 (09:46→19:44)
[2020-11-11] MEDS: LOSARTAN POTASSIUM 50 MG TAB PO SCH (09:46)
[2020-11-11] MEDS: MULTIVITAMIN TAB PO SCH (09:46)
[2020-11-11] MEDS: CHOLECALCIFEROL 1,000 UNITS 25 MCG TAB PO SCH (09:46)
[2020-11-11] MEDS: DIGOXIN 0.125 MG TAB PO SCH (09:47)
[2020-11-11] MEDS: ASPIRIN 81 MG ECTAB PO SCH (09:47)
[2020-11-11] MEDS: carvediloL 6.25 MG TAB PO SCH ×2 (09:47→19:44)
[2020-11-11] MEDS: FINASTERIDE 5 MG TAB PO SCH (09:47)
[2020-11-11] MEDS: PANTOprazole 40 MG TAB PO SCH (09:47)
[2020-11-11] MEDS: ATORVASTATIN 40 MG TAB PO SCH (09:47)
[2020-11-11] MEDS: FAMOTIDINE 20 MG TAB PO SCH ×2 (09:47→17:04)
--- NOTE | 2020-11-11 10:26 | Electrocardiogram Report ---
Test Reason : Blood Pressure : / mmHG Vent. Rate : 070 BPM Atrial Rate : 069 BPM P-R Int : 000 ms QRS Dur : 150 ms QT Int : 408 ms P-R-T Axes : 000 -53 084 degrees QTc Int : 440 ms Ventricular-paced rhythm Abnormal ECG When compared with ECG of 10-NOV-2020 12:27, (unconfirmed) No significant change was found Confirmed by Kvng Wright ([id number]) on 11/11/2020 10:26:32 AM Referred By: Isma Nur Confirmed By:De Wright
--- NOTE | 2020-11-11 15:36 | Hospitalist Progress Note ---
Date of Service November 11, 2020 Assessment & Plan (1) Ventricular tachycardia: almost 60 seconds last night after 11pm he was sleeping, no symptoms at all rates were 160's will order pacer interrogation, consult EP, Dr. Wright for his recommendations hold Coumadin in case he needs a different device (ICD) (2) YEMI (acute kidney injury): Cr is 1.67 yesterday and today hold Losartan drinking well, appears euvolemic, hold on IV fluids, check BMP tomorrow (3) Elevated troponin: no significant rise and fall, no chest pain, EKG is paced follow up echo report for any wall motion changes but doubt this is of significance (4) Ischemic cardiomyopathy: h/o such hold Losartan due to Cr of 1.67 continue Coreg, Digoxin, Imdur, hold Lasix he appears euvolemic (5) CAD (coronary artery disease): elevated troponin (slightly) but no chest pain continue aspirin, Imdur, Coreg, Lipitor (6) Valvular heart disease: s/p TAVR (7) Hypertension: See above (8) Hypoxia: Hypoxia/Raynaud's disease- Pulse ox was significantly improved with forehead reading, thus finger pulse ox at office might have been falsely low he was not short of breath at the time (9) Hyperlipidemia: Continue atorvastatin (10) Atrial fibrillation: See above continue Coreg, he is V paced hold Coumadin in case he needs new device (11) Chronic systolic heart failure: See above (12) Epistaxis: Hold the following inhalers azelastine, calcitonin, fluticasone propionate and ipratropium bromide Hb is 15 no significant epistaxis seen Admission and Anticipated Discharge Date Admission Date: November 10, 2020 Subjective reviewed chart and labs, he came to the ED for hypoxia as outpatient, was c/o epistaxis? he has been on room air entire time here, CXR clear last night he had nearly 60 seconds of v tach, rates 160's, resolved spontaneously he was sleeping, it was a little past 11pm has not had any chest pain, he is walking to the toilet with his cane, eating well, no dizziness/light headed sensation reviewed records, he has biventricular pacer in 2013, battery was exchanged past year will interrogate the device, see if he has been having v tach (at most in the past was 3-9 beat runs) d/w Dr. Wright with EP, he will see the patient and help evaluate device and give recommendations labs show Cr 1.67, his baseline is closer to 1.0, will hold Losartan eating and drinking well, with heart history hold on IV fluids for now Review of Systems Review of Systems: All systems reviewed & are unremarkable except as noted in Subjective Physical Exam Constitutional: WD/WN, vitals as above comfortable; no acute distress Neck: trachea midline, no thyromegaly Respiratory: normal respiratory effort, lungs clear to auscultation Cardiovascular: RRR, no murmur, no edema (paced) Gastrointestinal (Abdomen): normal bowel sounds, soft, nontender, no hepatosplenomegaly Musculoskeletal: no cyanosis or clubbing, extremities motor strength 5/5 Skin: no rashes, warm and dry Neurologic: patellar DTR's 2+ bilat, sensation intact and PERRL, EOMI, accommodation nl, no face palsy, no dysarthria Psychiatric: A+Ox3, euthymic affect Lymphatic: no cervical or axillary lymphadenopathy Results & Data Results & Data ([facility]) Vital Signs (Past 12 Hours) Vital Signs Temp Pulse Pulse Resp BP Pulse Ox 11/11/20 15:03 36.3 C L 71 18 143/71 H 97 11/11/20 11:03 36.3 C L 70 19 101/48 L 95 11/11/20 09:47 70 11/11/20 07:44 36.8 C 70 20 114/58 L 98 Laboratory Results Laboratory Results - last 24 hr 11/10/20 11/11/20 11/11/20 20:04 03:40 03:40 WBC 7.29 RBC 4.52 L Hgb 15.1 Hct 44.1 MCV 97.6 MCH 33.4 MCHC 34.2 RDW Std Deviation 51.5 H RDW Coeff of [place]yer 14.4 Plt Count 201 MPV 9.6 Immature Gran % (Auto) 0.1 Neut % (Auto) 82.5 Lymph % (Auto) 13.0 [place] % (Auto) 4.3 Eos % (Auto) 0.1 Baso % (Auto) 0.0 Neut # (Auto) 6.01 Lymph # (Auto) 0.95 L [place] # (Auto) 0.31 Eos # (Auto) 0.01 Baso # (Auto) 0.00 Immature Gran # (Auto) 0.01 Sodium Potassium Chloride Carbon Dioxide Anion Gap BUN Creatinine Est Cr Clr Drug Dosing Est GFR ( Amer) Est GFR (Non-Af Amer) BUN/Creatinine Ratio Glucose Calcium Magnesium Total Bilirubin AST ALT Alkaline Phosphatase Troponin I 0.104 H* 0.112 H* Total Protein Albumin Globulin Albumin/Globulin Ratio 11/11/20 11/11/20 03:40 12:01 WBC RBC Hgb Hct MCV MCH MCHC RDW Std Deviation RDW Coeff of [place]yer Plt Count MPV Immature Gran % (Auto) Neut % (Auto) Lymph % (Auto) [place] % (Auto) Eos % (Auto) Baso % (Auto) Neut # (Auto) Lymph # (Auto) [place] # (Auto) Eos # (Auto) Baso # (Auto) Immature Gran # (Auto) Sodium 138 Potassium 4.5 Chloride 105 Carbon Dioxide 31 Anion Gap 2.0 L BUN 42 H Creatinine 1.67 H Est Cr Clr Drug Dosing 31.2 Est GFR ( Amer) 42.6 Est GFR (Non-Af Amer) 36.8 BUN/Creatinine Ratio 25.0 H Glucose 115 H Calcium 8.5 Magnesium 2.2 Total Bilirubin 0.7 AST 19 ALT 33 Alkaline Phosphatase 85 Troponin I 0.108 H* Total Protein 7.0 Albumin 3.1 L Globulin 3.9 Albumin/Globulin Ratio 0.8 L Medications Administered Current Inpatient Medications Acetaminophen (Acetaminophen 325 Mg Tab) 650 mg PO Q4H PRN PRN Reason: Pain or Fever Stop: 12/10/20 17:59 Aspirin (Aspirin 81 Mg Ectab) 81 mg PO DAILY [facility] Stop: 12/11/20 08:59 Last Admin: 11/11/20 09:47 Dose: 81 mg Documented by: Atorvastatin Calcium (Atorvastatin 40 Mg Tab) 40 mg PO DAILY [facility] Stop: 12/11/20 08:59 Last Admin: 11/11/20 09:47 Dose: 40 mg Documented by: Carvedilol (Carvedilol 6.25 Mg Tab) 6.25 mg PO BID [facility] Stop: 12/10/20 20:59 Last Admin: 11/11/20 09:47 Dose: 6.25 mg Documented by: Digoxin (Digoxin 0.125 Mg Tab) 0.125 mg PO QAM [facility] Stop: 12/11/20 08:59 Last Admin: 11/11/20 09:47 Dose: 0.125 mg Documented by: Donepezil HCl (Donepezil Hcl 10 Mg Tab) 10 mg PO HS [facility] Stop: 12/10/20 20:59 Last Admin: 11/10/20 19:51 Dose: 10 mg Documented by: Famotidine (Famotidine 20 Mg Tab) 20 mg PO BIDM [facility] Stop: 12/10/20 17:59 Last Admin: 11/11/20 09:47 Dose: 20 mg Documented by: Finasteride (Finasteride 5 Mg Tab) 5 mg PO QAM [facility] Stop: 12/11/20 08:59 Last Admin: 11/11/20 09:47 Dose: 5 mg Documented by: Gabapentin (Gabapentin 300 Mg Cap) 300 mg PO TID [facility] Stop: 12/10/20 20:59 Last Admin: 11/11/20 14:21 Dose: 300 mg Documented by: Isosorbide Mononitrate (Isosorbide [place] Extended Rel 60 Mg Tabcr) 60 mg PO HS [facility] Stop: 12/10/20 20:59 Last Admin: 11/10/20 19:51 Dose: 60 mg Documented by: Loratadine (Loratadine 10 Mg Tab) 10 mg PO DAILY [facility] Stop: 12/11/20 08:59 Last Admin: 11/11/20 09:46 Dose: 10 mg Documented by: Losartan Potassium (Losartan Potassium 50 Mg Tab) 50 mg PO BIDM [facility] Stop: 12/10/20 17:59 Last Admin: 11/11/20 09:46 Dose: 50 mg Documented by: Melatonin (Melatonin 3 Mg Tab) 3 mg PO HS PRN PRN Reason: sleep Stop: 12/10/20 17:59 Miscellaneous (Restasis 0.05 % - Order Awaiting Action) 1 ea N/A QS [facility] Stop: 12/11/20 00:00 Last Admin: 11/11/20 09:48 Dose: Not Given Documented by: Multivitamins (Multivitamin Tab) 1 tab PO QAM [facility] Stop: 12/11/20 08:59 Last Admin: 11/11/20 09:46 Dose: 1 tab Documented by: Nitroglycerin (Nitroglycerin Sl 0.4 Mg/Tab Tab) 0.4 mg SL UD [facility] Stop: 12/10/20 17:59 Ondansetron HCl (Ondansetron Inj 2 Mg/Ml 2 Ml Vial) 4 mg IV Q6H PRN PRN Reason: Nausea Stop: 12/10/20 17:59 Pantoprazole Sodium (Pantoprazole 40 Mg Tab) 40 mg PO QAM [facility] Stop: 12/11/20 08:59 Last Admin: 11/11/20 09:47 Dose: 40 mg Documented by: Tramadol HCl (Tramadol Hcl 50 Mg Tablet) 50 mg PO Q4H PRN PRN Reason: Moderate Pain Stop: 12/10/20 17:59 Vitamin D (Cholecalciferol 1,000 Units 25 Mcg Tab) 2,000 units PO DAILY [facility] Stop: 12/11/20 08:59 Last Admin: 11/11/20 09:46 Dose: 2,000 units Documented by: Warfarin Sodium (Warfarin Sod 2.5 Mg Tab) 2.5 mg PO [id number]@1600 [facility] Stop: 12/11/20 15:59 Warfarin Sodium (Warfarin Sod 5 Mg Tab) 5 mg PO [id number]@1600 [facility] Stop: 12/10/20 17:59 Last Admin: 11/10/20 19:54 Dose: 5 mg Documented by: PG Care Time/CCT Total # of Minutes Spent Total Time Spent with Patient: Total time spent is greater than 50% in coordination of care (as documented) at patient's floor/unit and/or counseling patient: Coding Level of Care Code 58171 Subseq Hosp Care Lvl 3 Diagnoses Ventricular tachycardia I47.2 YEMI (acute kidney injury) N17.9 Elevated troponin R77.8 Ischemic cardiomyopathy I25.5 CAD (coronary artery disease) I25.10 Coronary Disease-Associated Artery/Lesion type: [place] artery [place] vs. transplanted heart: [place] heart Associated angina: without angina Valvular heart disease I38 Hypertension I10 Hypertension type: essential hypertension Hypoxia R09.02 Hyperlipidemia E78.5 Hyperlipidemia type: unspecified Atrial fibrillation I48.91 Atrial fibrillation type: unspecified Chronic systolic heart failure I50.22 Epistaxis R04.0 (1) CAD (coronary artery disease) Coronary Disease-Associated Artery/Lesion type: [place] artery [place] vs. transplanted heart: [place] heart Associated angina: without angina Qualified Code(s): I25.10 - Atherosclerotic heart disease of [place] coronary artery without angina pectoris (2) Hypertension Hypertension type: essential hypertension Qualified Code(s): I10 - Essential (primary) hypertension (3) Hyperlipidemia Hyperlipidemia type: unspecified Qualified Code(s): E78.5 - Hyperlipidemia, unspecified (4) Atrial fibrillation Atrial fibrillation type: unspecified Qualified Code(s): I48.91 - Unspecified atrial fibrillation
[2020-11-11] MEDS ORDERED: WARFARIN SOD 2.5 MG TAB PO SCH (16:00)
[2020-11-11] MEDS: ISOSORBIDE MONO EXTENDED REL 60 MG TABCR PO SCH (19:44)
[2020-11-11] MEDS: DONEPEZIL HCL 10 MG TAB PO SCH (19:44)
[2020-11-12 06:59] LABS: Basophils # (auto) 0.02 K/uL (0-0.2); Basophils % (auto) 0.2 %; Eosinophils % (auto) 3.4 %; Hematocrit (blood only) 42.7 % (42-52); Immature Granulocytes # (auto) 0.02 K/uL (0.00-0.02); Immature Granulocytes % (auto) 0.2 %; Lymphocytes # (auto) 2.03 K/uL (1.2-3.4); Lymphocytes % (auto) 23.1 %; Mean Corpuscular Hemoglobin 33.3 pg (25-34); Mean Corpuscular Hgb Conc 35.1 g/dL (32-36); Mean Corpuscular Volume 94.9 fL (80-100); Mean Platelet Volume 9.6 fL (7.4-10.4); Monocytes % (auto) 10.3 %; Neutrophils % (auto) 62.8 %; Platelet Count 182 K/uL (130-400); RDW Coefficient of Variation 14.4 % (11.5-14.5); RDW Standard Deviation 50.1 fL (36.4-46.3); White Blood Count 8.77 K/uL (4.8-10.8)
[2020-11-12 07:17] LABS: INR 2.3 (0.9-1.1); Prothrombin Time 21.9 Seconds (9.0-12.0)
[2020-11-12 07:18] LABS: Albumin Level 3.1 gm/dl (3.4-5.0); BUN Creatinine Ratio 26.1 (10-20); Calcium 9.3 mg/dl (8.5-10.1); Creatinine Clr Calc Pharmacy 37.6 ml/min; Est GFR (African American) 54.1 ml/min; Est GFR (Non-African American) 46.7 ml/min; Potassium 4.5 mmol/L (3.5-5.1)
[2020-11-12 07:21] LABS: Albumin Globulin Ratio 0.8 (0.9-2); Bilirubin,Total 0.6 mg/dl (0.2-1); Globulin 3.8 gm/dl (2.5-4.0); Total Protein 6.9 gm/dl (6.4-8.2)
--- NOTE | 2020-11-12 07:44 | Electrocardiogram Report ---
Test Reason : Blood Pressure : / mmHG Vent. Rate : 070 BPM Atrial Rate : 312 BPM P-R Int : 000 ms QRS Dur : 154 ms QT Int : 410 ms P-R-T Axes : 000 -52 092 degrees QTc Int : 442 ms Ventricular-paced rhythm Abnormal ECG When compared with ECG of 11-NOV-2020 04:43, No significant change was found Confirmed by Kvng Wright ([id number]) on 11/12/2020 7:43:37 AM Referred By: Isma Nur Confirmed By:De Wright
[2020-11-12] MEDS: ATORVASTATIN 40 MG TAB PO SCH (08:02)
[2020-11-12] MEDS: GABAPENTIN 300 MG CAP PO SCH (08:02)
[2020-11-12] MEDS: FINASTERIDE 5 MG TAB PO SCH (08:02)
[2020-11-12] MEDS: MULTIVITAMIN TAB PO SCH (08:02)
[2020-11-12] MEDS: LORATADINE 10 MG TAB PO SCH (08:02)
[2020-11-12] MEDS: DIGOXIN 0.125 MG TAB PO SCH (08:02)
[2020-11-12] MEDS: carvediloL 6.25 MG TAB PO SCH (08:02)
[2020-11-12] MEDS: PANTOprazole 40 MG TAB PO SCH (08:02)
[2020-11-12] MEDS: FAMOTIDINE 20 MG TAB PO SCH (08:03)
[2020-11-12] MEDS: ASPIRIN 81 MG ECTAB PO SCH (08:03)
[2020-11-12] MEDS: CHOLECALCIFEROL 1,000 UNITS 25 MCG TAB PO SCH (08:03)
--- NOTE | 2020-11-12 09:38 | Cardiology Consultation ---
Date of Consultation November 12, 2020 Assessment & Plan (1) Pacemaker: (2) Ischemic cardiomyopathy: (3) Valvular heart disease: (4) CAD (coronary artery disease): (5) Atrial fibrillation: (6) Ventricular tachycardia: He appears to have had an episode of nonsustained ventricular tachycardia. Review of the telemetry documents 27 seconds of a wide complex rhythm. Intracardiac electrograms during that time curiously did not demonstrate a very wide rhythm, but this could be due to the vector associated with recording. The less likely etiology of his rapid rhythm would of been conducted atrial fibrillation, but I think this is unlikely given the overall poor conduction his atrial fibrillation at baseline. In fact, no intrinsic R-waves were detected during device testing today, suggesting very poor and possibly absent AV conduction. Technically, the episode would be considered nonsustained based on its relatively brief duration, the absence of symptoms or hemodynamic compromise. However, the patient was likely sleeping at that time. He has known coronary disease and regional wall motion abnormalities on his echocardiogram which would certainly provide the substrate for ischemic VT. He does not have any independent indication for a defibrillator based on his mild degree of LV dysfunction. He does not have a history of syncope which would prompt additional evaluation. At this point I think continued observation and periodic interrogation of his device would be reasonable. Should he have more frequent or sustained episodes of ventricular tachycardia a upgrade of his device to a defibrillator could be considered. However, he has significant comorbidities and some element of cognitive dysfunction which affects the appropriateness a defibrillator in his case. Curiously, the device only recorded 5 seconds of "ventricular tachycardia". This was simply due to the device programming. It is programmed currently to labile heart rates over 150 beats per minute as ventricular tachycardia. The vent noted on telemetry with slightly slower than that. Review of the conducted ventricular rhythms portion of his device memory did record the event for 27 seconds. IA reduced the threshold by which a rhythm of this nature would be labeled as VT to 136 beats per minute. This may allow us to detect more frequent or sustained episodes of ventricular tachycardia moving forward. Recommendations: 1. Continued monitoring for additional episodes of ventricular tachycardia or symptoms consistent with sustained ventricular arrhythmias 2. Increase carvedilol as tolerated. Current blood pressure would suggest he may tolerate higher dose, beneficial for his LV dysfunction and ventricular arrhythmias. History of Present Illness Reason for Consultation: Ventricular tachycardia Requesting Physician: Farhan Attending Physician: Peter W Farhan, DO History of Present Illness The patient is an 85-year-old gentleman with an extensive cardiac history to include coronary artery disease status post surgical revascularization, ischemic cardiomyopathy, valvular heart disease status post TAVR, permanent atrial fibrillation and prior implantation of a biventricular pacemaker who was admitted for concerns of hypoxia. It seems that the patient had initially presented for evaluation of epistaxis. He was felt to be hypoxic in the clinic and sent to the emergency room for evaluation. No additional hypoxia has been documented. The patient has some difficulty recalling the events leading up to his admission. During his hospitalization he was placed on telemetry and noted to have an episode of ventricular tachycardia. The patient did not recall the episode of most likely sleeping at the time. He did not endorse other episodes of dizziness or lightheadedness. He has not been aware of palpitations. He cannot recall any episodes of syncope. He states that he previously was quite active ambulating several miles daily, but has not been interested in many activities recently. He did not report any specific activity limitations or symptoms associated with activity. He did not report symptoms of chest discomfort. Allergies Allergy/AdvReac Type Severity Reaction Status Date / Time oxycodone Allergy Severe HALLUCINATI Verified 11/10/20 14:43 ONS TASHA Inhibitors AdvReac Intermediate Cough Verified 11/10/20 14:43 rosuvastatin AdvReac Intermediate CONSTIPATIO Verified 11/10/20 14:43 N niacin AdvReac Mild FLUSHING Verified 11/10/20 14:43 paroxetine AdvReac Mild drowsiness Verified 11/10/20 14:43 Home Medications Medication Instructions Recorded Confirmed Type acetaminophen [Tylenol] 650 mg PO Q8H PRN 02/10/18 11/10/20 History isosorbide mononitrate 60 mg PO HS 02/10/18 11/10/20 History multivitamin 1 tab PO QAM 02/10/18 11/10/20 History pantoprazole 40 mg PO QAM 02/10/18 11/10/20 History azelastine 205.5 mcg (0.15 %) 2 spray INTRANASAL BID PRN 11/23/18 11/10/20 History nasal spray carvedilol 6.25 mg tablet 6.25 mg PO BID tab 11/23/18 11/10/20 History furosemide 40 mg tablet 40 mg PO DAILY tab 11/23/18 10/09/20 History ipratropium bromide 42 mcg (0.06 2 sprays INTNAS BID PRN ml 11/23/18 11/10/20 History %) nasal spray losartan 50 mg tablet 50 mg PO BIDM tab 11/23/18 11/10/20 History cyclosporine 0.05 % eye drops in a 1 drp OPHTHALMIC (EYE) BID ea 12/04/18 11/10/20 History dropperette loratadine 10 mg tablet 10 mg PO DAILY tab 12/04/18 11/10/20 History melatonin 3 mg tablet 3 mg PO HS PRN #1 tab 06/04/19 11/10/20 Rx cholecalciferol (vitamin D3) 25 2,000 unit PO DAILY cap 09/20/19 11/10/20 History mcg (1,000 unit) capsule digoxin [Digitek] 125 mcg PO QAM 03/28/20 11/10/20 History fluticasone propionate [Flonase 1 sprays INTNAS BID 03/28/20 11/10/20 History Allergy Relief] finasteride 5 mg tablet 5 mg PO QAM #90 tab 07/12/20 11/10/20 Rx alendronate 70 mg PO PIMENTEL 10/09/20 11/10/20 History atorvastatin 40 mg PO DAILY 10/09/20 11/10/20 History calcitonin ([place]) 1 spray INTRANASAL DAILY 10/09/20 11/10/20 History donepezil 10 mg PO HS 10/09/20 11/10/20 History gabapentin 300 mg PO TID 10/09/20 11/10/20 History nitroglycerin 0.4 mg SUBLINGUAL UD 10/09/20 11/10/20 History tramadol 25 - 50 mg PO Q4H PRN 10/09/20 11/10/20 History vit C-vit [id number]-uceyyu-soef-lutein 1 cap PO DAILY 10/09/20 11/10/20 History [PreserVision Lutein] aspirin 81 mg PO DAILY 11/10/20 11/10/20 History coenzyme Q10 [CoQ-10] 200 mg PO DAILY 11/10/20 11/10/20 History famotidine 20 mg PO BIDM 11/10/20 11/10/20 History glucos sul [id number]-[id number]-C-Mn 1 cap PO BID 11/10/20 11/10/20 History [Glucosamine Chondroitin] warfarin 2.5 mg PO SUTUWETHSA 11/10/20 11/10/20 History warfarin 5 mg PO MOFR 11/10/20 11/10/20 History Patient History Medical History CAD (coronary artery disease) Remote [place] 1983 with CABG x 2 (BELLAMY-LAD, SVG-RCA). 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 Follows with [facility] cardiology. Chronic kidney disease (CKD), stage II (mild) Congestive heart failure, NYHA class III Hospitalization 10/2017, 02/2018 for acute on chronic CHF COPD (chronic obstructive pulmonary disease) History of TIA (transient ischemic attack) OVER 5 YEARS AGO AND NO RESIDUAL EFFECTS Hx of myocardial infarction 1983 AND HAD CABG X2 Ischemic cardiomyopathy S/P BiV pacer (NOT defibfillator) 2012, with generator change 10/2019 at [facility]. Most recent echo showed EF 50% (12/13/19) Mitral valve disorder Pacemaker Medtronic, generator change 10/05/19 at [facility]. Medtronic. Last interrogation 02/02/20. 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 No significant prosthesis stenosis or regurg on 12/2019 echo. Severe mitral regurgitation with eccentric jet posteriorly directed. Surgical History Colonoscopy (08/25/12) H/O carotid endarterectomy (~1997) 1997 on right History of coronary artery bypass graft x 2 (~1983) 1983 - FOLLOWS WITH [facility] History of repair of inguinal hernia (11/06/18) Incarcerated right inguinal hernia repair and femoral hernia repair 11/06/18 Dr. Cho Hx of aortic valve replacement (~05/2018) [facility] 05/2018 S/P hernia repair RIGHT INGUINAL HERNIA REPAIR S/P left inguinal hernia repair (04/04/20) Open Sliding indirect Left Inguinal Hernia Repair, Direct weakness,with Mesh Placement, Excision Lipoma of Cord Dr. [place] 04/04/2020 Status post placement of cardiac pacemaker (~2013) 2013, [employer] - FOLLOWS WITH [facility] LAST CHECK 05/2018 AND NEXT CHECK WILL BE 10/2018 Status post right knee replacement Stented coronary artery (~2014) 2014 ONE STENT WAS PLACED AND FOLLOWS WITH [facility] Family History Other Heart disease Social History Smoking Status: Former smoker Second Hand Exposure: No; Do You Dip or Chew Tobacco: No; Tobacco Cessation Education Requested by Patient: No Hx Alcohol Use: No Hx Substance Use: No Preferred Language: Japanese Communication Ability: Effective Assembler Fitter Required: No Beliefs That Will Affect Care: None Current Living Situation: Alone current occupational status: retired Feels Safe at Home: Yes Assistive Devices: Cane, Glasses, Hearing Aid - Left and Hearing Aid - Right Review of Systems Review of Systems: Per HPI. He also reported some tingling in the fingertips on the right hand. Physical Exam Physical Exam: The patient is alert and oriented to person and place. He answered questions appropriately. However, he was quite forgetful at times and seem to be confused regarding some events. HEENT: Pupils are equal and reactive to light and accommodation. Extraocular movements are intact. The sclerae are anicteric. Neuro: Cranial nerves intact Lungs: Clear to auscultation bilaterally. He has good air movement without use of accessory muscles. No rales wheezes or rhonchi. Chest: Well-healed device implant site in the left upper pectoral area. Well-healed midline sternotomy scar Cardiac: Heart demonstrates a regular rate and rhythm. Normal S1 and S2. No murmurs on examination. Pulses: The patient has palpable radial pulses bilaterally that are equal in intensity Extremities: There was no evidence of hypoperfusion. There is no cyanosis or clubbing. There is no edema. Skin: I did not appreciate any rashes on examination today. Results & Data ([facility]) Vital Signs (Past 12 Hours) Vital Signs Temp Pulse Pulse Resp BP Pulse Ox 11/12/20 08:02 70 11/12/20 07:47 36.5 C 70 18 138/72 96 11/12/20 03:29 36.3 C L 70 16 137/68 94 11/11/20 22:58 35.9 C L 71 20 150/70 H 94 11/11/20 22:46 94 H 18 94 Laboratory Results Abnormal Lab Results 11/11/20 11/12/20 11/12/20 12:01 06:44 06:44 WBC 8.77 RBC 4.50 L Hgb 15.0 Hct 42.7 MCV 94.9 MCH 33.3 MCHC 35.1 RDW Std Deviation 50.1 H RDW Coeff of [place] 14.4 Plt Count 182 MPV 9.6 Immature Gran % (Auto) 0.2 Neut % (Auto) 62.8 Lymph % (Auto) 23.1 [place] % (Auto) 10.3 Eos % (Auto) 3.4 Baso % (Auto) 0.2 Neut # (Auto) 5.50 Lymph # (Auto) 2.03 [place] # (Auto) 0.90 H Eos # (Auto) 0.30 Baso # (Auto) 0.02 Immature Gran # (Auto) 0.02 PT INR Sodium 138 Potassium 4.5 Chloride 104 Carbon Dioxide 33 H Anion Gap 2.0 L BUN 36 H Creatinine 1.37 D Est Cr Clr Drug Dosing 37.6 Est GFR ( Amer) 54.1 Est GFR (Non-Af Amer) 46.7 BUN/Creatinine Ratio 26.1 H Glucose 78 Calcium 9.3 Magnesium 2.0 Total Bilirubin 0.6 AST 24 ALT 35 Alkaline Phosphatase 82 Troponin I 0.108 H* Total Protein 6.9 Albumin 3.1 L Globulin 3.8 Albumin/Globulin Ratio 0.8 L 11/12/20 06:44 WBC RBC Hgb Hct MCV MCH MCHC RDW Std Deviation RDW Coeff of [place]yer Plt Count MPV Immature Gran % (Auto) Neut % (Auto) Lymph % (Auto) [place] % (Auto) Eos % (Auto) Baso % (Auto) Neut # (Auto) Lymph # (Auto) [place] # (Auto) Eos # (Auto) Baso # (Auto) Immature Gran # (Auto) PT 21.9 H INR 2.3 H Sodium Potassium Chloride Carbon Dioxide Anion Gap BUN Creatinine Est Cr Clr Drug Dosing Est GFR ( Amer) Est GFR (Non-Af Amer) BUN/Creatinine Ratio Glucose Calcium Magnesium Total Bilirubin AST ALT Alkaline Phosphatase Troponin I Total Protein Albumin Globulin Albumin/Globulin Ratio Diagnostic Findings Echocardiogram performed 11/11/2020: Mild to moderately reduced LV systolic function with ejection fraction of 35-40%. Regional wall motion abnormalities. Severe biatrial dilation. Normally functioning bioprosthetic aortic valve. I performed a complete device interrogation of his biventricular pacemaker. Normal function of both the right ventricular and left ventricular leads. Atrial lead was not tested as the patient is in permanent atrial fibrillation. Normal device longevity. Good pacing percentage. The longest recorded episode of ventricular tachycardia was 5 seconds. PG Care Time/CCT Total # of Minutes Spent Total Time Spent with Patient: Total time spent is greater than 50% in coordination of care (as documented) at patient's floor/unit and/or counseling patient: Coding Level of Care Code 70995 Initial Inpt Care Lvl 3 Diagnoses Pacemaker Z95.0 Ischemic cardiomyopathy I25.5 Valvular heart disease I38 CAD (coronary artery disease) I25.10 Coronary Disease-Associated Artery/Lesion type: [place] artery [place] vs. transplanted heart: [place] heart Associated angina: without angina Atrial fibrillation I48.91 Atrial fibrillation type: unspecified Ventricular tachycardia I47.2 (1) CAD (coronary artery disease) Coronary Disease-Associated Artery/Lesion type: [place] artery [place] vs. transplanted heart: [place] heart Associated angina: without angina Qualified Code(s): I25.10 - Atherosclerotic heart disease of [place] coronary artery without angina pectoris (2) Atrial fibrillation Atrial fibrillation type: unspecified Qualified Code(s): I48.91 - Unspecified atrial fibrillation
--- NOTE | 2020-11-12 09:58 | Discharge Summary ---
Date of Service November 12, 2020 Admission HPI Per Admitting Provider The patient is a 85-year-old male with a past medical history including nocturnal hypoxemia, SNHL of both ears, pacemaker, ischemic cardiomyopathy, CAD, CKD stage II, hypertension, hyperlipidemia, atrial fibrillation, chronic systolic heart failure, secondary hyperparathyroidism, Raynaud's disease, moderate LOIS, polycythemia, aortic stenosis, BPH, vasomotor rhinitis, chronic reflux esophagitis, gout, long-term anticoagulant use, and mitral valve disorder. He presents with symptoms as noted above. In the emergency department, patient's pulse ox ranged from 97 to 98% on room air. His main complaint continues to be that of noticing faint blood on his tissue when he blows his nose. His family member thinks the issue may be related to the 4 nasal sprays that he uses Principal Diagnosis Non sustained ventricular tachycardia Discharge Exam Constitutional WD/WN, vitals as above comfortable; no acute distress Neck trachea midline, no thyromegaly Respiratory normal respiratory effort, lungs clear to auscultation Cardiovascular RRR, no murmur, no edema (paced) Gastrointestinal (Abdomen) normal bowel sounds, soft, nontender, no hepatosplenomegaly Musculoskeletal no cyanosis or clubbing, extremities motor strength 5/5 Skin no rashes, warm and dry Neurologic patellar DTR's 2+ bilat, sensation intact and PERRL, EOMI, accommodation nl, no face palsy, no dysarthria Psychiatric A+Ox3, euthymic affect Lymphatic no cervical or axillary lymphadenopathy Discharge Data Allergies Allergy/AdvReac Type Severity Reaction Status Date / Time oxycodone Allergy Severe HALLUCINATI Verified 11/10/20 14:43 ONS TASHA Inhibitors AdvReac Intermediate Cough Verified 11/10/20 14:43 rosuvastatin AdvReac Intermediate CONSTIPATIO Verified 11/10/20 14:43 N niacin AdvReac Mild FLUSHING Verified 11/10/20 14:43 paroxetine AdvReac Mild drowsiness Verified 11/10/20 14:43 Consultations 11/10/20 15:55 ED Decision to Admit Stat 11/10/20 18:00 Consult Cardiology Routine 11/11/20 14:27 Consult Cardiac Electrophysiology Routine Ordered Studies 11/10/20 14:57 CT angio chest PE protocol Stat Hospital Course (1) Ventricular tachycardia: was for 27 seconds, resolved spontaneously he was sleeping, no symptoms at all rates were 160's pacer interrogation -- no other episodes seen recently appreciate consult from Dr. Wright he recommends increasing Coreg to 12.5mg BID he re-programmed pacer to detect rates > 136 recommends close follow up with [facility] cardiology and more frequent interrogations no indication to place an ICD at this time (2) YEMI (acute kidney injury): Cr was 1.67 held Losartan drinking well, appears euvolemic Cr down to 1.3 on discharge, electrolytes stable, making adequate urine (3) Elevated troponin: no significant rise and fall, no chest pain, EKG is paced (4) Ischemic cardiomyopathy: h/o such hold Losartan due to Cr of 1.67 continue Coreg, Digoxin, Imdur, hold Lasix he appears euvolemic (5) CAD (coronary artery disease): elevated troponin (slightly) but no chest pain continue aspirin, Imdur, Coreg, Lipitor (6) Valvular heart disease: s/p TAVR (7) Hypertension: See above (8) Hypoxia: Hypoxia/Raynaud's disease- Pulse ox was significantly improved with forehead reading, thus finger pulse ox at office might have been falsely low he was not short of breath at the time no hypoxia during hospital stay (9) Hyperlipidemia: Continue atorvastatin (10) Atrial fibrillation: See above Coumadin increased Coreg to 12.5mg BID (11) Chronic systolic heart failure: See above (12) Epistaxis: Hold the following inhalers azelastine, calcitonin, fluticasone propionate and ipratropium bromide Hb is 15 no significant epistaxis seen Total Time Total Time Spent Total Time Spent (In Minutes): 32 Total Time Includes: Examination of the Patient, Discharge Planning and Medication Reconciliation Discharge Plan Discharge Items Patient Disposition: Home - Self-Care Reason For Visit: ELEVATED TROPONIN, HYPOXIA Discharge Diagnosis: Epistaxis Non-sustained ventricular tachycardia Condition on Discharge: Good Activity: Resume your previous activity Driving/Machine Use: No limitations Weightbearing: Full weightbearing Non-emergency contact: Primary Care Provider Call non-emergency contact if: you have any medication questions Follow-up/Referrals: Raghu Murphy MD [Primary Care Provider] - (one week) Diet: Heart Healthy Addtl Attending Provider Instructions: Medications: - CARVEDILOL: dose increased to 12.5mg BID per recommendation from cardiology Non-sustained ventricular tachycardia true length of episode was [address] Wright, rhythm specialist, reprogrammed your pacer to detect rhythms > 136 beats per minute he does not recommend defibrillator at this time as it was non-sustained, no symptoms and you do not meet criteria based on ejection fraction he recommends increasing carvedilol to 12.5mg twice a day close follow up with Dr. Ruiz with more frequent interrogations of pace maker to see if you are having episode of tachycardia Pending Studies at Discharge: No Stand-Alone Forms: [facility], Smoking Cessation Medications and DC Order Prescriptions: New carvedilol 12.5 mg tablet 12.5 mg PO BID Qty: 60 RF: 3 Continued finasteride 5 mg tablet 5 mg PO QAM Qty: 90 RF: 3 furosemide 40 mg tablet 40 mg PO DAILY RF: 0 ipratropium bromide 42 mcg (0.06 %) spray,non-aerosol 2 sprays INTNAS BID PRN (Reason: Cold Symptoms) RF: 0 losartan 50 mg tablet 50 mg PO BIDM RF: 0 loratadine 10 mg tablet 10 mg PO DAILY RF: 0 melatonin [Melatin] 3 mg tablet 3 mg PO HS PRN (Reason: sleep) Qty: 1 RF: 0 multivitamin Tablet 1 tab PO QAM RF: 0 isosorbide mononitrate 60 mg Tablet Extended Release 24 Hr 60 mg PO HS RF: 0 pantoprazole 40 mg Tablet,Delayed Release (Dr/Ec) 40 mg PO QAM RF: 0 acetaminophen [Tylenol] 325 mg Capsule 650 mg PO Q8H PRN (Reason: Fever Or Pain) RF: 0 azelastine 0.15 % (205.5 mcg) spray,non-aerosol 2 spray INTRANASAL BID PRN (Reason: Allergy Symptoms) RF: 0 Restasis 0.05 % dropperette 1 drp OPHTHALMIC (EYE) BID RF: 0 cholecalciferol (vitamin D3) [Vitamin D3] 25 mcg (1,000 unit) capsule 2,000 unit PO DAILY RF: 0 digoxin [Digitek] 125 mcg (0.125 mg) tablet 125 mcg PO QAM RF: 0 fluticasone propionate [Flonase Allergy Relief] 50 mcg/actuation spray,suspension 1 sprays INTNAS BID RF: 0 alendronate 70 mg tablet 70 mg PO PIMENTEL RF: 0 atorvastatin 40 mg tablet 40 mg PO DAILY RF: 0 calcitonin (salmon) 200 unit/actuation [place]um[place],Non-Aerosol 1 spray intranasal DAILY RF: 0 donepezil 10 mg tablet 10 mg PO HS RF: 0 gabapentin 300 mg capsule 300 mg PO TID RF: 0 nitroglycerin 0.4 mg Tablet, Sublingual 0.4 mg sublingual UD RF: 0 tramadol 50 mg tablet 25 - 50 mg PO Q4H PRN (Reason: Pain) RF: 0 PreserVision Lutein 226 mg-200 unit -5 mg-0.8 mg Capsule 1 cap PO DAILY RF: 0 aspirin 81 mg Tablet,Delayed Release (Dr/Ec) 81 mg PO DAILY RF: 0 warfarin 5 mg tablet 5 mg PO MOFR RF: 0 warfarin 5 mg tablet 2.5 mg PO SUTUWETHSA RF: 0 Glucosamine Chondroitin 550-30-1 mg Capsule 1 cap PO BID RF: 0 famotidine 20 mg tablet 20 mg PO BIDM RF: 0 coenzyme Q10 [CoQ-10] 100 mg Capsule 200 mg PO DAILY RF: 0 Discontinued carvedilol 6.25 mg tablet 6.25 mg PO BID RF: 0 Discharge Orders: Discharge Order (Routine); Ordered 11/12/20 Ordered By: Melvin Wolf/Other Patient Handouts: What to Know When TakingWarfarin Admission Data Admit Date/Time: 11/10/20 16:43 Attending Provider: Melvin Real Admit Provider: Ron Kahn Primary Care Provider: Raghu Murphy Other Providers: Ron Kahn ; Baldev Ruiz ; Abdiaziz Wright. Other Interventions: Discharge Summary Assessment (RN) Last Done: 11/12/20 10:21 Coding Level of Care Code D/C DAY MANAGEMENT >30 MINS Diagnoses Ventricular tachycardia I47.2 YEMI (acute kidney injury) N17.9 Elevated troponin R77.8 Ischemic cardiomyopathy I25.5 CAD (coronary artery disease) I25.10 Associated angina: without angina Coronary Disease-Associated Artery/Lesion type: [place] artery [place] vs. transplanted heart: [place] heart Valvular heart disease I38 Hypertension I10 Hypertension type: essential hypertension Hypoxia R09.02 Hyperlipidemia E78.5 Hyperlipidemia type: unspecified Atrial fibrillation I48.91 Atrial fibrillation type: unspecified Chronic systolic heart failure I50.22 Epistaxis R04.0
--- NOTE | 2020-11-12 10:24 | Cardiology Progress Note ---
Date of Service November 12, 2020 Assessment & Plan (1) Epistaxis: (2) Hypoxia: (3) Elevated troponin: (4) Ischemic cardiomyopathy: (5) Valvular heart disease: (6) Pacemaker: This patient the previous night had under 30 seconds of wide-complex tachycardia and technically this is nonsustained ventricular tachycardia. He was sleeping at the time and completely asymptomatic. Unfortunately, when his BiV pacemaker was implanted and recently updated, it was not updated with a defibrillator capability. At this point I think it is reasonable to discharge the patient home. I will arrange follow-up with his primary insurance plan specialist Dr. Ruiz who can discuss with him the possibility of upgrading his device in the future. Admission and Anticipated Discharge Date Admission Date: November 10, 2020 Subjective The patient had no additional cardiac arrhythmias for the past 24 hours. He had an uneventful night and has no new complaints today. Review of Systems Review of Systems: All systems reviewed & are unremarkable except as noted in Subjective Physical Exam Physical Exam: General: no acute distress and stated age Head: normocephalic, no masses, lesions, tenderness or abnormalities Eyes: conjunctiva are pink and non-injected, sclera clear Neck: supple, no adenopathy, no bruits, normal jugular venous pulse, no hepatojugular reflux Chest: normal shape and normal respiratory effort Lungs: clear to auscultation and percussion Cardiac Exam: - regular rate & rhythm, no murmurs gallops or rubs - normal S1, normal S2 Pulses: 2(+) throughout Abdomen: abdomen soft, non-tender, no abnormal masses and no hepatosplenomegaly Musculoskeletal: no gait disturbance, no joint inflammation, no deforming arthritis Extremities: no edema and no cyanosis Neuro: grossly normal exam Results & Data ([facility]) Vital Signs (Past 12 Hours) Vital Signs Temp Pulse Pulse Resp BP Pulse Ox 11/12/20 08:02 70 11/12/20 07:47 36.5 C 70 18 138/72 96 11/12/20 03:29 36.3 C L 70 16 137/68 94 11/11/20 22:58 35.9 C L 71 20 150/70 H 94 11/11/20 22:46 94 H 18 94 Laboratory Results Laboratory Results - last 24 hr 11/11/20 11/12/20 11/12/20 12:01 06:44 06:44 WBC 8.77 RBC 4.50 L Hgb 15.0 Hct 42.7 MCV 94.9 MCH 33.3 MCHC 35.1 RDW Std Deviation 50.1 H RDW Coeff of [place] 14.4 Plt Count 182 MPV 9.6 Immature Gran % (Auto) 0.2 Neut % (Auto) 62.8 Lymph % (Auto) 23.1 [place] % (Auto) 10.3 Eos % (Auto) 3.4 Baso % (Auto) 0.2 Neut # (Auto) 5.50 Lymph # (Auto) 2.03 [place] # (Auto) 0.90 H Eos # (Auto) 0.30 Baso # (Auto) 0.02 Immature Gran # (Auto) 0.02 PT INR Sodium 138 Potassium 4.5 Chloride 104 Carbon Dioxide 33 H Anion Gap 2.0 L BUN 36 H Creatinine 1.37 D Est Cr Clr Drug Dosing 37.6 Est GFR ( Amer) 54.1 Est GFR (Non-Af Amer) 46.7 BUN/Creatinine Ratio 26.1 H Glucose 78 Calcium 9.3 Magnesium 2.0 Total Bilirubin 0.6 AST 24 ALT 35 Alkaline Phosphatase 82 Troponin I 0.108 H* Total Protein 6.9 Albumin 3.1 L Globulin 3.8 Albumin/Globulin Ratio 0.8 L 11/12/20 06:44 WBC RBC Hgb Hct MCV MCH MCHC RDW Std Deviation RDW Coeff of [place] Plt Count MPV Immature Gran % (Auto) Neut % (Auto) Lymph % (Auto) [place] % (Auto) Eos % (Auto) Baso % (Auto) Neut # (Auto) Lymph # (Auto) [place] # (Auto) Eos # (Auto) Baso # (Auto) Immature Gran # (Auto) PT 21.9 H INR 2.3 H Sodium Potassium Chloride Carbon Dioxide Anion Gap BUN Creatinine Est Cr Clr Drug Dosing Est GFR ( Amer) Est GFR (Non-Af Amer) BUN/Creatinine Ratio Glucose Calcium Magnesium Total Bilirubin AST ALT Alkaline Phosphatase Troponin I Total Protein Albumin Globulin Albumin/Globulin Ratio Medications Administered Current Inpatient Medications Acetaminophen (Acetaminophen 325 Mg Tab) 650 mg PO Q4H PRN PRN Reason: Pain or Fever Stop: 12/10/20 17:59 Aspirin (Aspirin 81 Mg Ectab) 81 mg PO DAILY ADRIAN Stop: 12/11/20 08:59 Last Admin: 11/12/20 08:03 Dose: 81 mg Documented by: Atorvastatin Calcium (Atorvastatin 40 Mg Tab) 40 mg PO DAILY ADRIAN Stop: 12/11/20 08:59 Last Admin: 11/12/20 08:02 Dose: 40 mg Documented by: Carvedilol (Carvedilol 6.25 Mg Tab) 6.25 mg PO BID ADRIAN Stop: 12/10/20 20:59 Last Admin: 11/12/20 08:02 Dose: 6.25 mg Documented by: Digoxin (Digoxin 0.125 Mg Tab) 0.125 mg PO QAM ADRIAN Stop: 12/11/20 08:59 Last Admin: 11/12/20 08:02 Dose: 0.125 mg Documented by: Donepezil HCl (Donepezil Hcl 10 Mg Tab) 10 mg PO HS [facility] Stop: 12/10/20 20:59 Last Admin: 11/11/20 19:44 Dose: 10 mg Documented by: Famotidine (Famotidine 20 Mg Tab) 20 mg PO BIDM ADRIAN Stop: 12/10/20 17:59 Last Admin: 11/12/20 08:03 Dose: 20 mg Documented by: Finasteride (Finasteride 5 Mg Tab) 5 mg PO QAM ADRIAN Stop: 12/11/20 08:59 Last Admin: 11/12/20 08:02 Dose: 5 mg Documented by: Gabapentin (Gabapentin 300 Mg Cap) 300 mg PO TID ADRIAN Stop: 12/10/20 20:59 Last Admin: 11/12/20 08:02 Dose: 300 mg Documented by: Isosorbide Mononitrate (Isosorbide [place] Extended Rel 60 Mg Tabcr) 60 mg PO HS [facility] Stop: 12/10/20 20:59 Last Admin: 11/11/20 19:44 Dose: 60 mg Documented by: Loratadine (Loratadine 10 Mg Tab) 10 mg PO DAILY ADRIAN Stop: 12/11/20 08:59 Last Admin: 11/12/20 08:02 Dose: 10 mg Documented by: Losartan Potassium (Losartan Potassium 50 Mg Tab) 50 mg PO BIDM ADRIAN Stop: 12/10/20 17:59 Last Admin: 11/11/20 09:46 Dose: 50 mg Documented by: Melatonin (Melatonin 3 Mg Tab) 3 mg PO HS PRN PRN Reason: sleep Stop: 12/10/20 17:59 Miscellaneous (Restasis 0.05 % - Order Awaiting Action) 1 ea N/A QS [facility] Stop: 12/11/20 00:00 Last Admin: 11/12/20 07:54 Dose: Not Given Documented by: Multivitamins (Multivitamin Tab) 1 tab PO QAM [facility] Stop: 12/11/20 08:59 Last Admin: 11/12/20 08:02 Dose: 1 tab Documented by: Nitroglycerin (Nitroglycerin Sl 0.4 Mg/Tab Tab) 0.4 mg SL UD [facility] Stop: 12/10/20 17:59 Ondansetron HCl (Ondansetron Inj 2 Mg/Ml 2 Ml Vial) 4 mg IV Q6H PRN PRN Reason: Nausea Stop: 12/10/20 17:59 Pantoprazole Sodium (Pantoprazole 40 Mg Tab) [facility] Stop: 12/11/20 08:59 Last Admin: 11/12/20 08:02 Dose: 40 mg Documented by: Tramadol HCl (Tramadol Hcl 50 Mg Tablet) 50 mg PO Q4H PRN PRN Reason: Moderate Pain Stop: 12/10/20 17:59 Vitamin D (Cholecalciferol 1,000 Units 25 Mcg Tab) 2,000 units PO DAILY [facility] Stop: 12/11/20 08:59 Last Admin: 11/12/20 08:03 Dose: 2,000 units Documented by: Warfarin Sodium (Warfarin Sod 2.5 Mg Tab) 2.5 mg PO [email or web address] [facility] Stop: 12/11/20 15:59 Last Admin: 11/11/20 17:04 Dose: 2.5 mg Documented by: Warfarin Sodium (Warfarin Sod 5 Mg Tab) 5 mg PO [email or web address] [facility] Stop: 12/10/20 17:59 Last Admin: 11/10/20 19:54 Dose: 5 mg Documented by:
== END 2020-11-12 12:08 | disposition home or self-care (01) | DRG 309 ==
LOC: ED 12:11 → SUATTDRO 16:43 → 2E 16:43

== ENCOUNTER 2022-02-04 19:53 | Inpatient (IN) ==
[2022-02-04 21:49] LABS: Basophils # (auto) 0.03 K/uL (0-0.2); Basophils % (auto) 0.3 %; Eosinophils # (auto) 0.15 K/uL (0-0.50); Eosinophils % (auto) 1.5 %; Hematocrit (blood only) 42.4 % (40.1-51.0); Hemoglobin 14.4 g/dl (14.0-18.0); Immature Granulocytes # (auto) 0.03 K/uL (0.00-0.02); Immature Granulocytes % (auto) 0.3 %; Lymphocytes # (auto) 1.34 K/uL (1.2-3.4); Lymphocytes % (auto) 13.7 %; Mean Corpuscular Hemoglobin 32.7 pg (25.0-34.0); Mean Corpuscular Volume 96.1 fL (80.0-100.0); Monocytes # (auto) 0.83 K/uL (0.24-0.82); Monocytes % (auto) 8.5 %; Neutrophils # (auto) 7.41 K/uL (1.4-6.5); Neutrophils % (auto) 75.7 %; Platelet Count 234 K/uL (130-400); RDW Coefficient of Variation 14.4 % (11.5-14.5); RDW Standard Deviation 50.9 fL (36.4-46.3); Red Blood Count 4.41 M/uL (4.63-6.08); White Blood Count 9.79 K/ul (4.8-10.8)
[2022-02-04 21:56] LABS: Alanine Aminotransferase 16 U/L (7-52); Albumin Globulin Ratio 1.3 (0.9-2); Albumin Level 3.9 gm/dl (3.4-5.0); Alkaline Phosphatase 66 U/L (34-104); Anion Gap 6 (3-11); Aspartate Aminotransferase 23 U/L (13-39); BUN Creatinine Ratio 21.4 (10-20); Bilirubin,Total 0.8 mg/dl (0.2-1.0); Blood Urea Nitrogen 31 mg/dl (6-23); Calcium 9.5 mg/dl (8.5-10.1); Carbon Dioxide 32 mmol/L (21-32); Chloride 100 mmol/L (98-107); Est GFR (African American) 50.2 ml/min; Est GFR (Non-African American) 43.3 ml/min; Glucose 112 mg/dl (70-99(Fasting)); Potassium 4.9 mmol/L (3.5-5.1); Sodium 138 mmol/L (136-145); Total Protein 6.9 gm/dl (6.0-8.3)
[2022-02-04 22:36] LABS: Appearance Urine Clear (Clear); Bilirubin Urine Negative (Negative); Blood Urine Negative (Negative); Color Urine Yellow; Glucose Urine UA Negative (Negative); Ketones Urine Trace (Negative); Leukocyte Esterase Urine Negative (Negative); Nitrite Urine Negative (Negative); Protein Urine Negative (Negative); Specific Gravity Urine 1.018 (1.000-1.030); Urobilinogen Urine Negative (Negative)
[2022-02-04] MEDS ORDERED: SODIUM CHLORIDE 0.9% 1000ML 500 ML IV ONE (23:27)
--- NOTE | 2022-02-04 23:31 | Emergency Department Note ---
Impression & Plan Adult failure to thrive, Generalized weakness, Recurrent falls, Diffuse abdominal pain ED Provider Note Name: HORTENSIA HOLDER Age: 86 Sex: M Arrives Via: Walk-In Informant: Patient (poor historian due to dementia), Daughter ED Provider: Amadou Abbott MD Chief Complaint: Weakness Impression: As per impressions above Medical Decision Makin-year-old gentleman with gradually worsening dementia over the last few months in the setting of chronic diseases as CAD, cardiomyopathy, hypertension, dyslipidemia, A. fib amongst others. Patient with worsening confusion especially the last week or so to the point where daughter no longer feels he is safe to be living at home as he currently does. He has been having frequent falls. Patient is complaining of some vague diffuse abdominal pain but without any peritonitis on examination. A CT of the head is unremarkable. A CT of the abdomen pelvis without acute findings some old vertebral fracture is noted. He does not have any current back pain. Labs are essentially unremarkable. Discussed at length with daughter and given the fact that they do not feel comfortable taking him home and he lives alone we discussed with hospitalist for further management. Patient was a bit on the dehydrated side is given some IV fluids. Prior Medical Record and Triage/Nursing Notes reviewed by Me Additional history obtained from chart and daughter Differentials:Infection, dehydration, metabolic abnormality, hypo/hyperglycemia, electrolyte disturbance, anemia, hypoxia, cardiac sources, intracerebral event, toxicologic, neurologic, as well as other pathologies. Vital Signs: reviewed and remarkable for no significant abnormalities Interventions: nss bolus Labs:Reviewed and remarkable for no significant abnormalities Imaging:CT of the head and abdominal pelvis CT report attached. EKG:Per My Interpretation: Indication Weakness: Atrial sensed ventricular paced at 80 bpm and a QTC of 447. There is noted PVCs. No ischemia appreciated. When compared to EKG from November 12, 2020 there is no acute change. Consults:Dr Ernesto DOE Hospitalist Plan: Disposition:Hospitalization. Condition: Fair History of Present Illness: 86-year-old male arrives for evaluation of weakness. Patient with several months of rapidly worsening decline. He has been confused and altered. He oftentimes does not remember where he is and has constant redirection by family. They note he is frequently stumbling and they have to catch him. Today patient has been more confused than typical. He did get a flu shot 2 days ago. Patient has had decreased appetite and significant weight loss over the last few months. Daughter notes that he complained of upper abdominal pain earlier today. No fevers, shortness of breath, headaches, vomiting, rashes nor other concerning signs or symptoms. No new medications and no medications prior to arrival. Nothing seems to make better or worse. Daughter notes she has been in contact with the [facility] for possible placement as they do not feel they can really care for him anymore at home. She feels that given his worsening weakness he is not safe at home right now. ROS: See above HPI for pertinent positives & negatives. A total of 10 systems reviewed and were otherwise negative. Past Medical History:See Below Past Surgical History:See Below Family History:See Below Social History:See Below Home Medications:See Below Allergies:See Below Vitals:Blood Pressure: 107/74, Pulse 78, RR 20, T 36.3C, O2 % on RA Physical Exam: GENERAL: Patient is elderly/frail/dehydrated appearing and in no distress. EYES: No scleral icterus, unremarkable pupils. ENT: Mucous membranes moist, no nasal congestion. NECK: No masses appreciated, nomeningismus, trachea is midline. RESPIRATORY: No dyspnea. Clear to auscultation and equal bilaterally. No wheeze, no rhonchi. CARDIOVASCULAR: Regular rate and rhythm.No murmurs, rubs, gallops appreciated. GASTROINTESTINAL: Abdomen soft, non-tender, no peritonitis.Bowel sounds positive.No masses appreciated. BACK: No midline tenderness, no CVA tenderness EXTREMITIES: Normal motion all extremities, no cyanosis, no edema. NEUROLOGIC: Alert and oriented but a bit slow and appears to have some dementia, no acute motor or sensory deficits, no focal weakness, cranial nerves grossly intact. SKIN: No rash, no jaundice, no diaphoresis. GCS: 15 ED Course: Times/Reassessments: Did seem to perk up a bit with fluids and otherwise stable. Agreeable to hospitalization for further evaluation and possible placement. Amadou Abbott MD Past Med/Surg History Medical History CAD (coronary artery disease) Chronic kidney disease (CKD), stage II (mild) Congestive heart failure, NYHA class III COPD (chronic obstructive pulmonary disease) Elevated troponin History of TIA (transient ischemic attack) Hx of myocardial infarction Hypoxia Ischemic cardiomyopathy Mitral valve disorder Pacemaker Pulmonary fibrosis Sleep apnea Valvular heart disease Surgical History Colonoscopy (08/25/12) H/O carotid endarterectomy (~1997) History of coronary artery bypass graft x 2 (~1983) History of repair of inguinal hernia (11/06/18) Hx of aortic valve replacement (~05/2018) S/P hernia repair S/P left inguinal hernia repair (04/04/20) Status post placement of cardiac pacemaker (~2013) Status post right knee replacement Stented coronary artery (~2014) Family History Other Heart disease Social History Smoking Status: Former smoker Second Hand Exposure: No; Hx Alcohol Use: No Hx Substance Use: No Preferred Language: Sammarinese Communication Ability: Effective Psychiatry Teacher Required: No Beliefs That Will Affect Care: None Current Living Situation: Alone current occupational status: retired Feels Safe at Home: Yes Assistive Devices: Cane, Glasses, Hearing Aid - Left and Hearing Aid - Right Allergies Allergies Allergy/AdvReac Type Severity Reaction Status Date / Time oxycodone Allergy Severe HALLUCINATI Verified 10/23/21 09:34 ONS TASHA Inhibitors AdvReac Intermediate Cough Verified 10/23/21 09:34 rosuvastatin AdvReac Intermediate CONSTIPATIO Verified 10/23/21 09:34 N niacin AdvReac Mild FLUSHING Verified 10/23/21 09:34 paroxetine AdvReac Mild drowsiness Verified 10/23/21 09:34 Home Meds Home Medications Medication Instructions Recorded Confirmed acetaminophen 325 mg capsule 650 mg PO Q8H PRN Fever Or Pain 02/10/18 10/23/21 (Tylenol) isosorbide mononitrate 60 mg 60 mg PO HS 02/10/18 10/23/21 tablet,extended release 24 hr multivitamin 1 tab PO QAM 02/10/18 10/23/21 pantoprazole 40 mg tablet,delayed 40 mg PO QAM 02/10/18 10/23/21 release azelastine 205.5 mcg (0.15 %) 2 spray intranasal BID PRN Allergy 11/23/18 10/23/21 nasal spray Symptoms ipratropium bromide 42 mcg (0.06 2 sprays intranasal BID PRN Cold 11/23/18 10/23/21 %) nasal spray Symptoms cyclosporine 0.05 % eye drops in a 1 drp ophthalmic (eye) BID 12/04/18 10/23/21 dropperette (Restasis) loratadine 10 mg tablet 10 mg PO DAILY 12/04/18 10/23/21 digoxin 125 mcg (0.125 mg) tablet 125 mcg PO QAM 03/28/20 10/23/21 (Digitek) fluticasone propionate 50 1 sprays intranasal BID 03/28/20 10/23/21 mcg/actuation nasal spray,suspension (Flonase Allergy Relief) alendronate 70 mg tablet 70 mg PO PIMENTEL 10/09/20 10/23/21 atorvastatin 40 mg tablet 40 mg PO DAILY 10/09/20 10/23/21 calcitonin (salmon) 200 1 spray intranasal DAILY 10/09/20 10/23/21 unit/actuation nasal spray donepezil 10 mg tablet 10 mg PO HS 10/09/20 10/23/21 gabapentin 300 mg capsule 300 mg PO TID 10/09/20 10/23/21 nitroglycerin 0.4 mg sublingual 0.4 mg sublingual UD 10/09/20 10/23/21 tablet vit C 226 mg-vit E 90 mg-copper 1 cap PO DAILY 10/09/20 10/23/21 0.8 mg-zinc oxide-lutein 5 mg capsule (PreserVision Lutein) aspirin 81 mg tablet,delayed 81 mg PO DAILY 11/10/20 10/23/21 release coenzyme Q10 100 mg capsule 200 mg PO DAILY 11/10/20 10/23/21 (CoQ-10) glucosamine sulf dipot 1 cap PO BID 11/10/20 10/23/21 chlr,msm,chond 550 mg-C 30 mg-lali 1 mg capsule (Glucosamine Chondroitin) warfarin 5 mg tablet 2.5 mg PO SUTUWETHSA 11/10/20 10/23/21 warfarin 5 mg tablet 5 mg PO MOFR 11/10/20 10/23/21 furosemide 40 mg tablet See Rx Instructions .Route .COMPLEX 03/27/21 10/23/21 metoprolol succinate 50 mg See Rx Instructions .Route .COMPLEX 03/27/21 10/23/21 tablet,extended release 24 hr Previous Rx's Medication Instructions Recorded melatonin 3 mg tablet (Melatin) 3 mg PO HS PRN sleep #1 tab 06/04/19 sacubitril 49 mg-valsartan 51 mg 1 tab PO BID #180 tabs 01/25/21 tablet (Entresto) finasteride 5 mg tablet 5 mg PO QAM #90 tabs 09/03/21 ofloxacin 0.3 % ear drops 6 drp otic (ear) BID 10 days #10 mL 10/03/21 Results & Data (ED) Vital Signs Vital Signs - 24 hr 02/04/22 19:57 02/04/22 22:09 02/05/22 00:31 Temperature 36.3 C L Temperature Source Temporal Artery Scan Pulse Rate 91 H Pulse Rate [Apical] 78 86 Respiratory Rate 18 20 21 Respiratory Effort / Characteristics Non-Labored Respiratory Depth Normal Normal Blood Pressure 96/57 L Blood Pressure [Right Arm] 107/74 103/52 L Blood Pressure Mean 70 Blood Pressure Mean [Right Arm] 85 69 Blood Pressure Position [Right Arm] Lying Pulse Oximetry 96 94 95 Oxygen Delivery Method Room Air Room Air Room Air Sepsis Recent Fever Within 48 Hours No Sepsis New/Unexplained Change in Mental Status N/A Sepsis Action Taken by Nursing No Action Required 02/05/22 02:03 Temperature Temperature Source Pulse Rate Pulse Rate [Apical] 82 Respiratory Rate 28 H Respiratory Effort / Characteristics Non-Labored Spontaneous Respiratory Depth Normal Blood Pressure Blood Pressure [Right Arm] 101/47 L Blood Pressure Mean Blood Pressure Mean [Right Arm] 65 Blood Pressure Position [Right Arm] Sitting Pulse Oximetry 93 Oxygen Delivery Method Room Air Sepsis Recent Fever Within 48 Hours Sepsis New/Unexplained Change in Mental Status Sepsis Action Taken by Nursing Laboratory Data Result diagrams: 02/04/22 21:24 02/04/22 21:24 Lab Results 02/04/22 02/04/22 02/04/22 Range/Units 21:24 21:24 21:24 WBC 9.79 (4.8-10.8) K/ul RBC 4.41 L (4.63-6.08) M/uL Hgb 14.4 (14.0-18.0) g/dl Hct 42.4 (40.1-51.0) % MCV 96.1 (80.0-100.0) fL MCH 32.7 (25.0-34.0) pg MCHC 34.0 (32.0-36.0) g/dL RDW Std Deviation 50.9 H (36.4-46.3) fL RDW Coeff of Sawyer 14.4 (11.5-14.5) % Plt Count 234 (130-400) K/uL MPV 10.0 (9.4-12.4) fL Immature Gran % (Auto) 0.3 % Neut % (Auto) 75.7 % Lymph % (Auto) 13.7 % Rogers % (Auto) 8.5 % Eos % (Auto) 1.5 % Baso % (Auto) 0.3 % Neut # (Auto) 7.41 H (1.4-6.5) K/uL Lymph # (Auto) 1.34 (1.2-3.4) K/uL Rogers # (Auto) 0.83 H (0.24-0.82) K/uL Eos # (Auto) 0.15 (0-0.50) K/uL Baso # (Auto) 0.03 (0-0.2) K/uL Immature Gran # (Auto) 0.03 H (0.00-0.02) K/uL PT 20.5 H (9.0-12.0) Seconds INR 2.0 H (0.9-1.1) Sodium 138 (136-145) mmol/L Potassium 4.9 (3.5-5.1) mmol/L Chloride 100 (98-107) mmol/L Carbon Dioxide 32 (21-32) mmol/L Anion Gap 6 (3-11) BUN 31 H (6-23) mg/dl Creatinine 1.45 H (0.6-1.4) mg/dl Est Cr Clr Drug Dosing Not Reportable Est GFR ( Amer) 50.2 ml/min Est GFR (Non-Af Amer) 43.3 ml/min BUN/Creatinine Ratio 21.4 H (10-20) Glucose 112 H (70-99(Fasting)) mg/dl Calcium 9.5 (8.5-10.1) mg/dl Total Bilirubin 0.8 (0.2-1.0) mg/dl AST 23 (13-39) U/L ALT 16 (7-52) U/L Alkaline Phosphatase 66 (34-104) U/L Total Protein 6.9 (6.0-8.3) gm/dl Albumin 3.9 (3.4-5.0) gm/dl Globulin 3.0 (2.5-4.0) gm/dl Albumin/Globulin Ratio 1.3 (0.9-2) Urine Color Urine Appearance (Clear) Urine pH (4.5-7.5) Ur Specific Jarreau (1.000-1.030) Urine Protein (Negative) Urine Glucose (UA) (Negative) Urine Ketones (Negative) Urine Blood (Negative) Urine Nitrite (Negative) Urine Bilirubin (Negative) Urine Urobilinogen (Negative) Ur Leukocyte Esterase (Negative) SARS-CoV-2, RNA, NAAT (NEGATIVE) 02/04/22 02/04/22 Range/Units 22:22 23:39 WBC (4.8-10.8) K/ul RBC (4.63-6.08) M/uL Hgb (14.0-18.0) g/dl Hct (40.1-51.0) % MCV (80.0-100.0) fL MCH (25.0-34.0) pg MCHC (32.0-36.0) g/dL RDW Std Deviation (36.4-46.3) fL RDW Coeff of Sawyer (11.5-14.5) % Plt Count (130-400) K/uL MPV (9.4-12.4) fL Immature Gran % (Auto) % Neut % (Auto) % Lymph % (Auto) % Rogers % (Auto) % Eos % (Auto) % Baso % (Auto) % Neut # (Auto) (1.4-6.5) K/uL Lymph # (Auto) (1.2-3.4) K/uL Rogers # (Auto) (0.24-0.82) K/uL Eos # (Auto) (0-0.50) K/uL Baso # (Auto) (0-0.2) K/uL Immature Gran # (Auto) (0.00-0.02) K/uL PT (9.0-12.0) Seconds INR (0.9-1.1) Sodium (136-145) mmol/L Potassium (3.5-5.1) mmol/L Chloride (98-107) mmol/L Carbon Dioxide (21-32) mmol/L Anion Gap (3-11) BUN (6-23) mg/dl Creatinine (0.6-1.4) mg/dl Est Cr Clr Drug Dosing Est GFR ( Amer) ml/min Est GFR (Non-Af Amer) ml/min BUN/Creatinine Ratio (10-20) Glucose (70-99(Fasting)) mg/dl Calcium (8.5-10.1) mg/dl Total Bilirubin (0.2-1.0) mg/dl AST (13-39) U/L ALT (7-52) U/L Alkaline Phosphatase (34-104) U/L Total Protein (6.0-8.3) gm/dl Albumin (3.4-5.0) gm/dl Globulin (2.5-4.0) gm/dl Albumin/Globulin Ratio (0.9-2) Urine Color Yellow Urine Appearance Clear (Clear) Urine pH 5.0 (4.5-7.5) Ur Specific [place] 1.018 (1.000-1.030) Urine Protein Negative (Negative) Urine Glucose (UA) Negative (Negative) Urine Ketones Trace H (Negative) Urine Blood Negative (Negative) Urine Nitrite Negative (Negative) Urine Bilirubin Negative (Negative) Urine Urobilinogen Negative (Negative) Ur Leukocyte Esterase Negative (Negative) SARS-CoV-2, RNA, NAAT NEGATIVE (NEGATIVE) Administered Medications Discontinued Medications Sodium Chloride (Nss 1000ml) 500 mls @ 999 mls/hr IV .Q31M ONE Stop: 02/04/22 23:57 Last Admin: 02/05/22 04:03 Dose: Not Given Documented By: JE Discharge Plan Visit Data Chief Complaint: Illness Stated Complaint: WEAK, CONFUSION, MENTAL DECLINE ED Provider: Amadou Abbott Discharge Problem: Adult failure to thrive, Generalized weakness, Recurrent falls, Diffuse abdominal pain Patient Disposition: Admitted As Inpatient Discharge Instructions Interventions: ED Discharge Assessment Last Done: 02/05/22 03:32
--- NOTE | 2022-02-05 02:23 | History & Physical Report ---
Date of Service February 05, 2022 Assessment & Plan (1) Weakness: Plan: 86-year-old male presenting from home with progressive functional decline, weakness, frequent falls. Patient's family has been trying to place him in a senior living. Admit to medical Maintain fall precautions PT/OT evaluation Case management as needed for placement needs (2) Ischemic cardiomyopathy: Plan: Compensated. No evidence of failure on physical exam Continue Entresto Continue metoprolol Continue isosorbide mononitrate Continue Lasix 40 mg p.o. every morning and 20 mg p.o. q. afternoon Continue digoxin (3) CAD (coronary artery disease): Plan: Chronic. Stable. Patient denies chest pain Continue aspirin 81 mg p.o. daily Continue atorvastatin 40 mg p.o. daily Continue metoprolol 75 mg p.o. twice daily (4) Chronic kidney disease (CKD), stage II (mild): Plan: BUN and creatinine near baseline Monitor renal function Avoid nephrotoxic agents (5) Hypertension: Plan: Blood pressure appropriately controlled at present Continue home medications, isosorbide, metoprolol, Entresto Continue to monitor (6) Hyperlipidemia: Plan: Chronic. Stable. Continue atorvastatin (7) Atrial fibrillation: Plan: Rate controlled Continue Coumadin Monitor INR daily Continue metoprolol Continue digoxin in AM (8) Moderate obstructive sleep apnea: Plan: Chronic. CPAP nightly (9) BPH (benign prostatic hyperplasia): Plan: Chronic. Stable. Continue Proscar 5 mg p.o. every morning Continue to monitor urine output (10) Dementia: Plan: Chronic. Stable. Continue Aricept Frequent orientation History of Present Illness Chief Complaint: Weakness, gait instability, falls Primary Care Provider: Raghu Murphy MD Víctor Coffey is an 86-year-old male with history of COPD, CAD, CKD, CHF presenting with progressive generalized weakness, gait instability and frequent falls.Patient presented with family however, during my encounter no family was present at bedside.By report he has had progressive decline. He has had episodes of confusion and altered mental status.Today he was more confused than usual which prompted the family to bring him to the ER. Family has been in contact with [facility] to try to facilitate placement. During my encounter patient with no acute complaints. He denies fevers, chills, chest pain, cough, shortness of breath, abdominal pain, nausea, vomiting, diarrhea. He does admit to being generally weak but does not feel that this has worsened significantly over the last several days. He states that he eats well overall but has had a decreased appetite lately. He does fall reportedly 1-2 times per week. Denies loss of consciousness or head trauma. Patient offers no additional complaints In the ER he is afebrile, hemodynamically stable, no acute distress. Resting comfortably. Participates in exam and answers questions appropriately. Allergies Allergy/AdvReac Type Severity Reaction Status Date / Time oxycodone Allergy Severe HALLUCINATI Verified 10/23/21 09:34 ONS TASHA Inhibitors AdvReac Intermediate Cough Verified 10/23/21 09:34 rosuvastatin AdvReac Intermediate CONSTIPATIO Verified 10/23/21 09:34 N niacin AdvReac Mild FLUSHING Verified 10/23/21 09:34 paroxetine AdvReac Mild drowsiness Verified 10/23/21 09:34 Home Medications Medication Instructions Recorded Confirmed Type acetaminophen 325 mg capsule 650 mg PO Q8H PRN Fever Or Pain 02/10/18 10/23/21 History (Tylenol) isosorbide mononitrate 60 mg 60 mg PO HS 02/10/18 10/23/21 History tablet,extended release 24 hr multivitamin 1 tab PO QAM 02/10/18 10/23/21 History pantoprazole 40 mg tablet,delayed 40 mg PO QAM 02/10/18 10/23/21 History release azelastine 205.5 mcg (0.15 %) 2 spray intranasal BID PRN Allergy 11/23/18 10/23/21 History nasal spray Symptoms ipratropium bromide 42 mcg (0.06 2 sprays intranasal BID PRN Cold 11/23/18 10/23/21 History %) nasal spray Symptoms cyclosporine 0.05 % eye drops in a 1 drp ophthalmic (eye) BID 12/04/18 10/23/21 History dropperette (Restasis) loratadine 10 mg tablet 10 mg PO DAILY 12/04/18 10/23/21 History melatonin 3 mg tablet (Melatin) 3 mg PO HS PRN sleep #1 tab 06/04/19 10/23/21 Rx digoxin 125 mcg (0.125 mg) tablet 125 mcg PO QAM 03/28/20 10/23/21 History (Digitek) fluticasone propionate 50 1 sprays intranasal BID 03/28/20 10/23/21 History mcg/actuation nasal spray,suspension (Flonase Allergy Relief) alendronate 70 mg tablet 70 mg PO PIMENTEL 10/09/20 10/23/21 History atorvastatin 40 mg tablet 40 mg PO DAILY 10/09/20 10/23/21 History calcitonin (salmon) 200 1 spray intranasal DAILY 10/09/20 10/23/21 History unit/actuation nasal spray donepezil 10 mg tablet 10 mg PO HS 10/09/20 10/23/21 History gabapentin 300 mg capsule 300 mg PO TID 10/09/20 10/23/21 History nitroglycerin 0.4 mg sublingual 0.4 mg sublingual UD 10/09/20 10/23/21 History tablet vit C 226 mg-vit E 90 mg-copper 1 cap PO DAILY 10/09/20 10/23/21 History 0.8 mg-zinc oxide-lutein 5 mg capsule (PreserVision Lutein) aspirin 81 mg tablet,delayed 81 mg PO DAILY 11/10/20 10/23/21 History release coenzyme Q10 100 mg capsule 200 mg PO DAILY 11/10/20 10/23/21 History (CoQ-10) glucosamine sulf dipot 1 cap PO BID 11/10/20 10/23/21 History chlr,msm,chond 550 mg-C 30 mg-lali 1 mg capsule (Glucosamine Chondroitin) warfarin 5 mg tablet 2.5 mg PO SUTUWETHSA 11/10/20 10/23/21 History warfarin 5 mg tablet 5 mg PO MOFR 11/10/20 10/23/21 History sacubitril 49 mg-valsartan 51 mg 1 tab PO BID #180 tabs 01/25/21 10/23/21 Rx tablet (Entresto) furosemide 40 mg tablet See Rx Instructions .Route .COMPLEX 03/27/21 10/23/21 History metoprolol succinate 50 mg See Rx Instructions .Route .COMPLEX 03/27/21 10/23/21 History tablet,extended release 24 hr finasteride 5 mg tablet 5 mg PO QAM #90 tabs 09/03/21 10/23/21 Rx ofloxacin 0.3 % ear drops 6 drp otic (ear) BID 10 days #10 mL 10/03/21 10/23/21 Rx Past Med/Surg History Medical History CAD (coronary artery disease) Chronic kidney disease (CKD), stage II (mild) Congestive heart failure, NYHA class III COPD (chronic obstructive pulmonary disease) Elevated troponin History of TIA (transient ischemic attack) Hx of myocardial infarction Hypoxia Ischemic cardiomyopathy Mitral valve disorder Pacemaker Pulmonary fibrosis Sleep apnea Valvular heart disease Surgical History Colonoscopy (08/25/12) H/O carotid endarterectomy (~1997) History of coronary artery bypass graft x 2 (~1983) History of repair of inguinal hernia (11/06/18) Hx of aortic valve replacement (~05/2018) S/P hernia repair S/P left inguinal hernia repair (04/04/20) Status post placement of cardiac pacemaker (~2013) Status post right knee replacement Stented coronary artery (~2014) Family History Other Heart disease Social History Smoking Status: Former smoker Second Hand Exposure: No; Hx Alcohol Use: No Hx Substance Use: No Preferred Language: [place] Communication Ability: Effective Circulator Required: No Beliefs That Will Affect Care: None Current Living Situation: Alone current occupational status: retired Feels Safe at Home: Yes Assistive Devices: Cane, Glasses, Hearing Aid - Left and Hearing Aid - Right Review of Systems Review of Systems: All systems reviewed & are unremarkable except as noted in HPI & below Physical Exam Physical Exam: General: Frail, elderly malepatient resting comfortably, NAD, non-toxic in appearance, AA&O x 3 Skin: warm, dry, intact, no rashes or lesions HEENT: NC/AT, PERRL, EOMI, anicteric sclera, conjunctiva without injection, external ear normal to inspection and nontender, nares patent, moist mucus membranes, dentition intact, no oropharyngeal lesions, neck supple, trachea midline, no LAD, no thyromegaly, no JVD Heart: +S1/S2, regular, no m/r/g Lungs: equal air entry bilaterally, no rales/rhonchi/wheezes Abd: +BS, soft, NT/ND, no masses/organomegaly/ascites Ext: warm, 2+ pulses in UE/LE bilaterally, no clubbing/cyanosis or edema Neuro: nonfocal, patient AA&O x 3, speech intact, Patient slow to answer questions but is able to do so appropriately, no facial droop, moving all extremities on command with equal strength 5/5 Results & Data Results & Data ([facility]) Vital Signs (Past 12 Hours) Vital Signs Temp Pulse Pulse Resp BP BP Pulse Ox 02/05/22 02:03 82 28 H 101/47 L 93 02/05/22 00:31 86 21 103/52 L 95 02/04/22 22:09 78 20 107/74 94 02/04/22 19:57 36.3 C L 91 H 18 96/57 L 96 O2 Del Method 02/05/22 02:03 Room Air 02/05/22 00:31 Room Air 02/04/22 22:09 Room Air 02/04/22 19:57 Room Air Laboratory Results Laboratory Results WBC 9.79 K/ul (4.8-10.8) 02/04/22 21:24 RBC 4.41 M/uL (4.63-6.08) L 02/04/22 21:24 Hgb 14.4 g/dl (14.0-18.0) 02/04/22 21:24 Hct 42.4 % (40.1-51.0) 02/04/22 21:24 MCV 96.1 fL (80.0-100.0) 02/04/22 21:24 MCH 32.7 pg (25.0-34.0) 02/04/22 21:24 MCHC 34.0 g/dL (32.0-36.0) 02/04/22 21:24 RDW Std Deviation 50.9 fL (36.4-46.3) H 02/04/22 21:24 RDW Coeff of [place] 14.4 % (11.5-14.5) 02/04/22 21:24 Plt Count 234 K/uL (130-400) 02/04/22 21:24 MPV 10.0 fL (9.4-12.4) 02/04/22 21:24 Immature Gran % (Auto) 0.3 % 02/04/22 21:24 Neut % (Auto) 75.7 % 02/04/22 21:24 Lymph % (Auto) 13.7 % 02/04/22 21:24 [place] % (Auto) 8.5 % 02/04/22 21:24 Eos % (Auto) 1.5 % 02/04/22 21:24 Baso % (Auto) 0.3 % 02/04/22 21:24 Neut # (Auto) 7.41 K/uL (1.4-6.5) H 02/04/22 21:24 Lymph # (Auto) 1.34 K/uL (1.2-3.4) 02/04/22 21:24 [place] # (Auto) 0.83 K/uL (0.24-0.82) H 02/04/22 21:24 Eos # (Auto) 0.15 K/uL (0-0.50) 02/04/22 21:24 Baso # (Auto) 0.03 K/uL (0-0.2) 02/04/22 21: Immature Gran # (Auto) 0.03 K/uL (0.00-0.02) H 02/04/22 21:24 PT 20.5 Seconds (9.0-12.0) H 02/04/22 21:24 INR 2.0 (0.9-1.1) H 02/04/22 21:24 Sodium 138 mmol/L (136-145) 02/04/22 21:24 Potassium 4.9 mmol/L (3.5-5.1) 02/04/22 21:24 Chloride 100 mmol/L (98-107) 02/04/22 21:24 Carbon Dioxide 32 mmol/L (21-32) 02/04/22 21:24 Anion Gap 6 (3-11) 02/04/22 21:24 BUN 31 mg/dl (6-23) H 02/04/22 21:24 Creatinine 1.45 mg/dl (0.6-1.4) H 02/04/22 21:24 Est Cr Clr Drug Dosing Not Reportable 02/04/22 21:24 Est GFR ( Amer) 50.2 ml/min 02/04/22 21:24 Est GFR (Non-Af Amer) 43.3 ml/min 02/04/22 21:24 BUN/Creatinine Ratio 21.4 (10-20) H 02/04/22 21:24 Glucose 112 mg/dl (70-99(Fasting)) H 02/04/22 21:24 Calcium 9.5 mg/dl (8.5-10.1) 02/04/22 21:24 Total Bilirubin 0.8 mg/dl (0.2-1.0) 02/04/22 21:24 AST 23 U/L (13-39) 02/04/22 21:24 ALT 16 U/L (7-52) 02/04/22 21:24 Alkaline Phosphatase 66 U/L (34-104) 02/04/22 21:24 Total Protein 6.9 gm/dl (6.0-8.3) 02/04/22 21:24 Albumin 3.9 gm/dl (3.4-5.0) 02/04/22 21:24 Globulin 3.0 gm/dl (2.5-4.0) 02/04/22 21:24 Albumin/Globulin Ratio 1.3 (0.9-2) 02/04/22 21:24 Urine Color Yellow 02/04/22 22:22 Urine Appearance Clear (Clear) 02/04/22 22:22 Urine pH 5.0 (4.5-7.5) 02/04/22 22:22 Ur Specific [place] 1.018 (1.000-1.030) 02/04/22 22:22 Urine Protein Negative (Negative) 02/04/22 22:22 Urine Glucose (UA) Negative (Negative) 02/04/22 22:22 Urine Ketones Trace (Negative) H 02/04/22 22:22 Urine Blood Negative (Negative) 02/04/22 22:22 Urine Nitrite Negative (Negative) 02/04/22 22:22 Urine Bilirubin Negative (Negative) 02/04/22 22:22 Urine Urobilinogen Negative (Negative) 02/04/22 22:22 Ur Leukocyte Esterase Negative (Negative) 02/04/22 22:22 SARS-CoV-2, RNA, NAAT NEGATIVE (NEGATIVE) 02/04/22 23:39 PG Care Time/CCT Total # of Minutes Spent Total Time Spent with Patient: Total time spent is greater than 50% in coordination of care (as documented) at patient's floor/unit and/or counseling patient: Coding Level of Care Code 69236 Initial Inpt Care Lvl 3 Diagnoses Weakness R53.1 Ischemic cardiomyopathy I25.5 CAD (coronary artery disease) I25.10 Coronary Disease-Associated Artery/Lesion type: [place] artery [place] vs. transplanted heart: [place] heart Associated angina: without angina Chronic kidney disease (CKD), stage II (mild) N18.2 Hypertension I10 Hypertension type: essential hypertension Hyperlipidemia E78.5 Hyperlipidemia type: unspecified Atrial fibrillation I48.91 Atrial fibrillation type: unspecified Moderate obstructive sleep apnea G47.33 BPH (benign prostatic hyperplasia) N40.0 Dementia F03.90 (1) CAD (coronary artery disease) Coronary Disease-Associated Artery/Lesion type: [place] artery [place] vs. transplanted heart: [place] heart Associated angina: without angina Qualified Code(s): I25.10 - Atherosclerotic heart disease of [place] coronary artery without angina pectoris (2) Hypertension Hypertension type: essential hypertension Qualified Code(s): I10 - Essential (primary) hypertension (3) Hyperlipidemia Hyperlipidemia type: unspecified Qualified Code(s): E78.5 - Hyperlipidemia, unspecified (4) Atrial fibrillation Atrial fibrillation type: unspecified Qualified Code(s): I48.91 - Unspecified atrial fibrillation
[2022-02-05] MEDS ORDERED: ONDANSETRON INJ 2 MG/ML 2 ML VIAL IV PRN (03:33)
[2022-02-05 04:28] LABS: Prothrombin Time 20.5 Seconds (9.0-12.0)
--- NOTE | 2022-02-05 07:21 | CT Scan Report ---
HEAD CT NONCONTRAST CT DOSE: HISTORY: Confusion. Altered mental status. TECHNIQUE: Multiaxial CT images of the head were performed without the use of intravenous contrast. A utomated exposure control was utilized for this study. A dose lowering technique was utilized adheri ng to the principles of ALARA. Comparison: Brain MRI 09/14/2020. Findings: The paranasal sinuses and mastoid air cells are clear. The calvarium and skull base are int act. There is no mass, hematoma, midline shift, acute infarct. White matter hypodensity is nonspecifi c but suggestive of microvascular ischemic change. The ventricles and sulci demonstrate mild age-rela saima involutional changes. 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 Impression: No significant change compared to the prior study. No acute intracranial abnormality. ACT 112: Negative or not required by law. Electronically signed by: Sukhi Moscoso M.D. 02/05/2022 7:20 AM
--- NOTE | 2022-02-05 08:49 | Electrocardiogram Report ---
Test Reason : Blood Pressure : / mmHG Vent. Rate : 080 BPM Atrial Rate : 080 BPM P-R Int : 342 ms QRS Dur : 132 ms QT Int : 388 ms P-R-T Axes : 005 -53 084 degrees QTc Int : 447 ms Poor data quality, interpretation may be adversely affected Ventricular paced rhythm with occasional PVCs Abnormal ECG When compared with ECG of 12-NOV-2020 05:48, Vent. rate has increased BY 10 BPM Confirmed by Kvng Wright ([id number]) on 02/05/2022 8:49:28 AM Referred By: REFERRED SELF Confirmed By:De Wright
[2022-02-05] MEDS: ASPIRIN 81 MG ECTAB PO SCH (09:11)
[2022-02-05] MEDS: FUROSEMIDE 40 MG TAB PO SCH (09:12)
[2022-02-05] MEDS: PANTOprazole 40 MG TAB PO SCH (09:12)
[2022-02-05] MEDS: FINASTERIDE 5 MG TAB PO SCH (09:12)
[2022-02-05] MEDS: ATORVASTATIN 40 MG TAB PO SCH (09:13)
[2022-02-05] MEDS: GABAPENTIN 300 MG CAP PO SCH ×3 (09:13→20:54)
[2022-02-05] MEDS: METOPROLOL SUCC 50MG EXT REL TAB PO SCH ×2 (09:14→21:05)
[2022-02-05] MEDS: VALSARTAN/SACUBITRIL 51/49 MG TAB PO SCH ×2 (09:14→20:54)
[2022-02-05] MEDS: FLUTICASONE PROPIONATE NA SPR 16 GM BTL SCH ×2 (09:15→21:07)
[2022-02-05] MEDS: CALCITONIN SALMON NA 200 IU/AC 3.7 ML BTL SCH (09:16)
--- NOTE | 2022-02-05 09:21 | CT Scan Report ---
CT SCAN OF THE ABDOMEN AND PELVIS WITHOUT IV CONTRAST CLINICAL HISTORY: Generalized abdominal pain. Constipation. COMPARISON STUDY: Abdominal CT dated 10/09/2020. TECHNIQUE: CT scan of the abdomen and pelvis is performed from the lung bases to the proximal femora. Images are reviewed in the axial, sagittal, and coronal planes. IV contrast was not administered for this examination. Note that the examination was performed in suboptimal fashion without oral and IV contrast. A dose lowering technique was utilized adhering to the principles of ALARA. CT DOSE: 1195.55 mGy.cm FINDINGS: Lung bases: The patient is status post midline sternotomy and aortic valve surgery. The heart is enla rged and without pericardial effusion. The coronary arteries are densely calcified. Pacemaker leads a re noted. Emphysematous change is noted. Fibrotic change is seen at the lung bases comment bibasilar scarring/atelectasis. Interlobar septal thickening is suggested. Patchy groundglass consolidation is noted in the lower lobes. There are calcified granulomas. A 9 mm right middle lobe pulmonary nodule i s again seen on image #25. There is a tiny hiatal hernia. Liver: The unenhanced liver is normal in size, contour, and attenuation. There is no intrahepatic yadira iary ductal dilatation. Gallbladder: Unremarkable. Spleen: Normal in size and attenuation. Pancreas: The unenhanced pancreas is moderately atrophic and grossly unremarkable. Adrenal glands: Unremarkable. Kidneys: The unenhanced kidneys demonstrate mild cortical atrophy and are without hydronephrosis. The re are no renal calculi identified. A 1.5 cm indeterminant complex lesion is again seen arising from the upper pole right kidney on image #171. This likely represent a complex cyst when correlated with a 10/09/2020 examination. A 1.8 cm cyst arises from the right lower pole and is also unchanged. Abdominal vasculature: There is advanced atherosclerotic calcification and ectasia of the abdominal a drew. Bowel: There is advanced colonic diverticulosis without CT evidence of acute diverticulitis. No bowel obstruction is seen. Moderate fecal retention is noted throughout the colon. The appendix is well-v isualized and normal. Peritoneum: There is no intraperitoneal free air or abdominal ascites. Lymphadenopathy: None. Pelvic viscera: The prostate gland is enlarged and heterogeneous noting median lobe hypertrophy. The bladder wall is thickened and trabeculated indicating chronic outlet obstruction. There is evidence o f previous right inguinal herniorrhaphy. Skeletal structures: The skeletal structures are heterogeneously osteopenic. There are chronic compre ssion injuries of T9, T12, L1, L2, L4, and L5. Advanced cerebral spondylosis is observed. No lytic or blastic lesions are seen. IMPRESSION: 1. No acute infectious or inflammatory findings are identified in the abdomen or pelvis. 2. Moderate constipation. No bowel obstruction is seen 3. Emphysema, cardiomegaly, and cardiac pacemaker. Intralobular septal thickening at the lung bases c ould be seen with acute versus chronic congestive change and clinical correlation will be required. 4. Mild patchy groundglass consolidation is seen at both lung bases. This could represent mild pulmon manasa edema and/or an infectious/inflammatory pneumonitis. Clinical correlation will be required. 5. Advanced colonic diverticulosis without CT evidence of acute diverticulitis. 6. A 9 mm right middle lobe pulmonary nodule is pathologically indeterminate and unchanged. This can be followed if clinically warranted. 7. Additional findings as above. ACT 112: Negative or not required by law. Electronically signed by: Glen Noriega M.D. 02/05/2022 9:19 AM
--- NOTE | 2022-02-05 14:04 | Communication Note ---
Date of Service: February 05, 2022 86-year-old male admitted early this morning is seen around 10 AM, stable in emergency department. At the time of my exam, the patient is ambulatory out of the bathroom using a cane and a 1 person assist. He complains of left knee pain. Denies other complaints. Exam 122/60, 70, 20, 36.3, 93% on room air He is alert to name. He is disoriented to time date and place. Heart regular rate and rhythm. Lungs are clear with nonlabored respirations Abdomen is soft and nontender. Bowel sounds are normoactive The left knee is tender to palpation, especially along the medial joint line. There is mild to moderate amount of edema. He does have fairly good flexion (and ambulation), without restriction due to pain. Data WBC 9.79, hemoglobin 14.4, platelet count 234 PT 20.5, INR 2.0 Sodium 138, potassium 4.9, BUN 31, creatinine 1.45 AST 23 ALT 16 alkaline phosphatase 66 Total protein 6.9, albumin 3.9, globulin 3.[address] of the head dated 02/04/2022 shows no signal change compared to the prior study. No acute intracranial abnormalities appreciated. CT scan of the abdomen pelvis shows no acute infectious inflammatory findings. Moderate constipation is noted. Impression and plan Progressive dementia causing weakness, falls, and loss of appetite malnutrition PT/OT evaluation Case management consultation X-ray left knee Dementia Continue Aricept I believe is also on memantine; will need to check the outpatient records to confirm Ischemic cardiomyopathy Compensated, appears euvolemic today Continue Entresto, metoprolol, isosorbide, and Lasix Coronary artery disease, quiescent Continue aspirin, atorvastatin, metoprolol May want to revisit discussion regarding aspirin; increased risk of intracranial/GI bleed on patients with aspirin plus Coumadin, for uncertain cardiovascular benefit. CKD, stage II Monitor BMP Atrial fibrillation, rate controlled Continue metoprolol and digoxin With the patient's increased falls, may need to discuss Coumadin in terms of risk/benefits. If he is placed in more monitor situation, fall risk actually may be decreased. Please see resident documentation for additional information
--- NOTE | 2022-02-05 15:06 | XRay Report ---
LEFT KNEE 3 VIEWS CLINICAL HISTORY: Chronic left knee pain. FINDINGS: AP, crosstable lateral, and sunrise views of the left knee are compared to study dated 2014. The skeletal structures are osteopenic. No fracture is seen. There is advanced tricompartmental degenerative joint space narrowing. There is near complete loss of the joint space in the medial com partment with bony sclerosis and osteochondral irregularity. There are large marginal osteophytes and patellar enthesophytes. Chondrocalcinosis is seen in both the medial and lateral compartments. There is a moderate joint effusion with calcified joint bodies. Mild soft tissue swelling is present aroun d the knee. Bony overgrowth is seen along the posterior aspect of the distal femur and along the ante rior and posterior aspect of the tibial plateau. Advanced atherosclerotic calcification is noted in t he popliteal artery. IMPRESSION: 1. No acute bony abnormality is identified. 2. Osteopenia with advanced degenerative change and chondrocalcinosis as above. 2. Joint effusion and calcified joint bodies. Electronically signed by: Glen Noriega M.D. 02/05/2022 3:03 PM
[2022-02-05] MEDS: DIGOXIN 0.125 MG TAB PO SCH (16:23)
[2022-02-05] MEDS: WARFARIN SOD 2.5 MG TAB PO SCH (16:23)
[2022-02-05] MEDS: FUROSEMIDE 20 MG TAB PO SCH (16:25)
[2022-02-05] MEDS: DONEPEZIL HCL 10 MG TAB PO SCH (21:06)
[2022-02-05] MEDS: ISOSORBIDE MONO EXTENDED REL 60 MG TABCR PO SCH (21:06)
[2022-02-06 07:02] LABS: Hematocrit (blood only) 37.5 % (40.1-51.0); Hemoglobin 12.9 g/dl (14.0-18.0); Mean Corpuscular Hgb Conc 34.4 g/dL (32.0-36.0); Mean Corpuscular Volume 95.9 fL (80.0-100.0); Mean Platelet Volume 10.2 fL (9.4-12.4); Platelet Count 234 K/uL (130-400); RDW Coefficient of Variation 14.5 % (11.5-14.5); RDW Standard Deviation 50.7 fL (36.4-46.3); Red Blood Count 3.91 M/uL (4.63-6.08); White Blood Count 8.53 K/ul (4.8-10.8)
[2022-02-06 07:23] LABS: INR 1.5 (0.9-1.1); Prothrombin Time 16.1 Seconds (9.0-12.0)
[2022-02-06 07:27] LABS: Albumin Level 3.5 gm/dl (3.4-5.0); BUN Creatinine Ratio 22.4 (10-20); Bilirubin Direct 0.2 mg/dl (0-0.2); Bilirubin,Total 0.9 mg/dl (0.2-1.0); Calcium 8.9 mg/dl (8.5-10.1); Creatinine Clr Calc Pharmacy 34.1 ml/min; Est GFR (African American) 55.2 ml/min; Est GFR (Non-African American) 47.6 ml/min; Potassium 4.1 mmol/L (3.5-5.1); Total Protein 6.2 gm/dl (6.0-8.3)
[2022-02-06] MEDS: ASPIRIN 81 MG ECTAB PO SCH (09:23)
[2022-02-06] MEDS: ATORVASTATIN 40 MG TAB PO SCH (09:24)
[2022-02-06] MEDS: FINASTERIDE 5 MG TAB PO SCH (09:25)
[2022-02-06] MEDS: FLUTICASONE PROPIONATE NA SPR 16 GM BTL SCH ×2 (09:25→21:07)
[2022-02-06] MEDS: GABAPENTIN 300 MG CAP PO SCH ×3 (09:26→21:09)
[2022-02-06] MEDS: FUROSEMIDE 40 MG TAB PO SCH (09:26)
[2022-02-06] MEDS: PANTOprazole 40 MG TAB PO SCH (09:28)
[2022-02-06] MEDS: VALSARTAN/SACUBITRIL 51/49 MG TAB PO SCH ×2 (09:29→21:09)
[2022-02-06] MEDS: METOPROLOL SUCC 50MG EXT REL TAB PO SCH ×2 (09:29→21:15)
[2022-02-06] MEDS: CALCITONIN SALMON NA 200 IU/AC 3.7 ML BTL SCH (09:31)
[2022-02-06] MEDS: MEMANTINE HCL 10 MG TAB PO SCH ×2 (12:02→21:10)
[2022-02-06] MEDS: ACETAMINOPHEN 325 MG TAB PO PRN (14:49)
[2022-02-06] MEDS: WARFARIN SOD 2.5 MG TAB PO SCH (16:51)
[2022-02-06] MEDS: DIGOXIN 0.125 MG TAB PO SCH (16:52)
[2022-02-06] MEDS ORDERED: WARFARIN SOD 2 MG TAB PO STA (17:06)
--- NOTE | 2022-02-06 17:08 | Communication Note ---
Date of Service: February 06, 2022 I also saw the patient and confirmed pedroza portions of the history and physical examination. I discussed the case with the resident physician. Agree with impression and plan as noted in resident documentation and as summarized below. He is without complaints our morning rounds. Exam 107/67, 70, 18, 36.4, 90% room air He is alert to name. He is disoriented to time date and place. Heart regular rate and rhythm. Lungs are clear with nonlabored respirations Data Hemoglobin 12.9, platelet count 234 INR 1.5 Sodium 138, potassium 4.1, BUN 30, creatinine 1.34 Imaging X-ray knee shows end-stage degenerative disease, effusion. Impression and plan Progressive dementia causing weakness, falls, and loss of appetite mild malnutrition PT/OT evaluation Case management consultation Dementia Continue Aricept Add memantine (he was on previously as an outpatient) Ischemic cardiomyopathy Compensated, appears euvolemic today Continue Entresto, metoprolol, isosorbide, and Lasix Coronary artery disease, quiescent Continue aspirin, atorvastatin, metoprolol May want to revisit discussion regarding aspirin; increased risk of intracranial/GI bleed on patients with aspirin plus Coumadin, for uncertain cardiovascular benefit. CKD, stage II Monitor BMP Atrial fibrillation, rate controlled Continue metoprolol and digoxin Adjust warfarin given subtherapeutic INR today With the patient's increased falls, may need to discuss Coumadin in terms of risk/benefits. If he is placed in more monitor situation, fall risk actually may be decreased. Please see resident documentation for additional information
[2022-02-06] MEDS: FUROSEMIDE 20 MG TAB PO SCH (18:04)
--- NOTE | 2022-02-06 19:18 | Hospitalist Progress Note ---
Date of Service February 06, 2022 Assessment & Plan (1) Dementia: Plan: 86-year-old male with history of dementia, cardiomyopathy, CAD, CKD stage II, hypertension, presenting from home with acutely progressive functional decline, frequent falls. Dementia/falls -Patient follows with [facility]. Patient had also been on memantine 10 mg twice daily, which he had not been receiving, in addition to donepezil. -Family had been trying to arrange placement when his falls and mental state acutely worsened. -X-ray of left knee shows some effusion. No evidence of fracture or other acute process. * Donepezil 10 mg nightly, memantine 10 mg twice daily * Fall precautions * PT/OT evaluation * Confer with case management regarding placement needs Ischemic cardiomyopathy: Continue on home regimen: Entresto, metoprolol, isosorbide mononitrate, Lasix (40 mg p.o. in the morning, 20 mg p.o. in the afternoon), digoxin. Hypertension: Continue home metoprolol, isosorbide mononitrate, Entresto CAD: Continue ASA, atorvastatin, metoprolol Atrial fibrillation: Rate control, anticoagulation as above. Warfarin dose adjusted today, as patient is concurrently on aspirin. LOIS: CPAP nightly Code: DNR/DNI Dispo: Med-Surg without telemetry FEN/GI: regular DVT Prophylaxis: ASA, warfarin PT/OT: Yes Consults: None Case management:Yes (2) Recurrent falls: (3) Generalized weakness: Admission and Anticipated Discharge Date Admission Date: February 05, 2022 Supervising Physician Co-Signing Physician Notes I also saw the patient confirmed pedroza portions of the history and physical examination. Please see my separate attestation in the communication note dated 02/06/2022. Subjective No acute events overnight. Patient is in bed and awake this morning upon arrival. He has no acute complaints, except for his lingering knee pain. Tolerating breakfast well. Review of Systems Review of Systems: All systems reviewed & are unremarkable except as noted in HPI & below Physical Exam Physical Exam: General: Well-appearing, alert, interactive, and in no acute distress. HEENT: Normocephalic, atraumatic. EOM intact. Good conjugate gaze. Nares patent. Moist mucosal membranes. Neck: Supple. No lymphadenopathy. Normal ROM. CV: Regular rate and rhythm. Normal S1 and S2. No murmurs gallops or rubs. Respiratory: Normal respiratory effort. Lungs clear to auscultation bilaterally. No crackles, rhonchi, or wheezes. Abdomen: Soft, nondistended abdomen. No bruits heard on auscultation. No tenderness to deep palpation. Extremities: Capillary refill <2 sec. 2+ dp equal bilaterally. No pedal edema. Neuro: Alert and oriented x3. Skin: Clean, dry, and intact. No rashes, bruises, or erythema. Results & Data Results & Data ([facility]) Vital Signs (Past 12 Hours) Vital Signs Temp Pulse Pulse Resp BP O2 Del Method 02/06/22 16:52 70 02/06/22 14:59 36.4 C L 71 18 107/67 02/06/22 09:04 Room Air Resident Activity Tracking Resident Involvement: Resident Care Provided Care Provided: Adult Hospital Medicine
[2022-02-06] MEDS: ISOSORBIDE MONO EXTENDED REL 60 MG TABCR PO SCH (21:08)
[2022-02-06] MEDS: DONEPEZIL HCL 10 MG TAB PO SCH (21:08)
[2022-02-06] MEDS ORDERED: LACTATED RINGER'S 250 ML IV ONE (21:24)
[2022-02-07 07:25] LABS: INR 1.4 (0.9-1.1); Prothrombin Time 14.6 Seconds (9.0-12.0)
[2022-02-07] MEDS: FLUTICASONE PROPIONATE NA SPR 16 GM BTL SCH ×2 (10:32→20:12)
[2022-02-07] MEDS: CALCITONIN SALMON NA 200 IU/AC 3.7 ML BTL SCH (10:32)
[2022-02-07] MEDS: ASPIRIN 81 MG ECTAB PO SCH (10:33)
[2022-02-07] MEDS: ATORVASTATIN 40 MG TAB PO SCH (10:34)
[2022-02-07] MEDS: FINASTERIDE 5 MG TAB PO SCH (10:34)
[2022-02-07] MEDS: MEMANTINE HCL 10 MG TAB PO SCH ×2 (10:36→20:12)
[2022-02-07] MEDS: GABAPENTIN 300 MG CAP PO SCH ×3 (10:36→20:12)
[2022-02-07] MEDS: PANTOprazole 40 MG TAB PO SCH (10:37)
[2022-02-07] MEDS: FUROSEMIDE 40 MG TAB PO SCH (10:49)
[2022-02-07] MEDS: METOPROLOL SUCC 50MG EXT REL TAB PO SCH ×2 (10:51→23:15)
[2022-02-07] MEDS: VALSARTAN/SACUBITRIL 51/49 MG TAB PO SCH ×2 (10:53→23:15)
[2022-02-07] MEDS ORDERED: WARFARIN SOD 2.5 MG TAB PO ONE (14:45)
--- NOTE | 2022-02-07 15:15 | Hospitalist Progress Note ---
Date of Service February 07, 2022 Assessment & Plan (1) Dementia: Plan: 86-year-old male with history of dementia, cardiomyopathy, CAD, CKD stage II, hypertension, presenting from home with acutely progressive functional decline, frequent falls. Dementia/falls -Patient follows with [facility]. Patient had also been on memantine 10 mg twice daily, which he had not been receiving, in addition to donepezil. -Family had been trying to arrange placement when his falls and mental state acutely worsened. -X-ray of left knee shows some effusion. No evidence of fracture or other acute process. * Donepezil 10 mg nightly, memantine 10 mg twice daily * Fall precautions * PT/OT evaluation * Per case management, currently awaiting placement at [facility]. Discharge possible tomorrow. Ischemic cardiomyopathy: Continue on home regimen: Entresto, metoprolol, isosorbide mononitrate, Lasix (40 mg p.o. in the morning, 20 mg p.o. in the afternoon), digoxin. Hypertension: Continue home metoprolol, isosorbide mononitrate, Entresto CAD: Continue ASA, atorvastatin, metoprolol Atrial fibrillation: Rate control, anticoagulation as above. Warfarin dose adjusted today, as patient is concurrently on aspirin. LOIS: CPAP nightly Code: DNR/DNI Dispo: Med-Surg without telemetry FEN/GI: regular DVT Prophylaxis: ASA, warfarin PT/OT: Yes Consults: None Case management:Yes (2) Recurrent falls: (3) Generalized weakness: Admission and Anticipated Discharge Date Admission Date: February 05, 2022 Supervising Physician Co-Signing Physician Notes I also saw the patient and confirmed pedroza portions of the history and physical examination. I discussed the case with the resident physician. Agree with impression and plan as noted in resident documentation and as summarized below. He is without complaints our morning rounds. Exam 90/48, 70, 18, 36.7, 90% room air He is pleasant. No distress appreciated. He is alert to name. He is disoriented to time date and place. Heart regular rate and rhythm. Lungs are clear with nonlabored respirations Data INR 1.4 Imaging X-ray knee shows end-stage degenerative disease, effusion. Impression and plan Progressive dementia causing weakness, falls, and loss of appetite mild malnutrition PT/OT evaluation Case management consultation appreciated, possible for discharge tomorrow to [facility]. Dementia Continue Aricept and memantine Ischemic cardiomyopathy Hypertension Compensated, appears euvolemic today Reduced overall from 75 mg p.o. twice daily to 50 mg p.o. twice daily given soft blood pressures Will need to monitor blood pressure and heart rate moving forward In review of the outpatient notes from January,, this was also discussed Continue Entresto, isosorbide, and Lasix Coronary artery disease, quiescent Continue aspirin, atorvastatin, metoprolol May want to revisit discussion regarding aspirin; increased risk of intracranial/GI bleed on patients with aspirin plus Coumadin, for uncertain cardiovascular benefit. CKD, stage II Monitor BMP Atrial fibrillation, rate controlled Continue metoprolol and digoxin Adjust warfarin given subtherapeutic INR today With the patient's increased falls, may need to discuss Coumadin in terms of risk/benefits. If he is placed in more monitor situation, fall risk actually may be decreased. Please see resident documentation for additional information Subjective Overnight, BP dropped to 78/45. Received half liter bolus normal saline. This morning, patient is awake in bed on arrival. He has no acute complaints, he denies headache, shortness of breath, chest pain, abdominal pain. Review of Systems Review of Systems: All systems reviewed & are unremarkable except as noted in HPI & below Physical Exam Physical Exam: General: Frail-appearing, alert, interactive, and in no acute distress. HEENT: Normocephalic, atraumatic. EOM intact. Good conjugate gaze. Nares patent. Moist mucosal membranes. Neck: Supple. No lymphadenopathy. Normal ROM. CV: Regular rate and rhythm. Normal S1 and S2. 2/6 murmur heard in auscultation. No gallops or rubs. Respiratory: Normal respiratory effort. Lungs clear to auscultation bilaterally. No crackles, rhonchi, or wheezes. Abdomen: Soft, nondistended abdomen. No bruits heard on auscultation. No tenderness to deep palpation. Extremities: Capillary refill <2 sec. 2+ dp equal bilaterally. No pedal edema. Effusion noted in left knee Neuro: Alert and oriented x2. Skin: Clean, dry, and intact. No rashes, bruises, or erythema. Results & Data Results & Data ([facility]) Vital Signs (Past 12 Hours) Vital Signs Temp Pulse Resp BP Pulse Ox O2 Del Method 02/07/22 10:41 71 106/58 L 02/07/22 07:19 36.4 C L 75 16 92/59 L 96 Room Air Resident Activity Tracking Resident Involvement: Resident Care Provided Care Provided: Adult Hospital Medicine
[2022-02-07] MEDS: WARFARIN SOD 2.5 MG TAB PO SCH (17:10)
[2022-02-07] MEDS: DIGOXIN 0.125 MG TAB PO SCH (17:10)
[2022-02-07] MEDS: FUROSEMIDE 20 MG TAB PO SCH (17:13)
[2022-02-07] MEDS: ACETAMINOPHEN 325 MG TAB PO PRN (17:24)
--- NOTE | 2022-02-07 19:09 | Communication Note ---
Date of Service: February 07, 2022 Had goals of care discussion with patient's daughter, Xochitl, who is primary decision-maker, and her sister. In light of low BPs, low current MAP, they ex pressed that he received vasopressor support if blood pressure drops again overnight as it did the previous night, even if it requires ICU level care. They are okay with a DNR/DNI should he stop breathing or if his heart stops. Will amend DNR/DNI order accordingly. Resident Activity Tracking Resident Involvement: Resident Care Provided Care Provided: Adult [facility]
[2022-02-07] MEDS: DONEPEZIL HCL 10 MG TAB PO SCH (20:12)
[2022-02-07] MEDS: ISOSORBIDE MONO EXTENDED REL 60 MG TABCR PO SCH (23:15)
[2022-02-07] MEDS: COUGH DROP (SUGAR FREE) LOZ 24 LOZ/1 BOX BUCCAL PRN (23:23)
[2022-02-08] MEDS: COUGH DROP (SUGAR FREE) LOZ 24 LOZ/1 BOX BUCCAL PRN (04:41)
[2022-02-08 06:41] LABS: INR 1.6 (0.9-1.1); Prothrombin Time 16.6 Seconds (9.0-12.0)
--- NOTE | 2022-02-08 08:00 | Hospitalist Progress Note ---
Date of Service February 08, 2022 Assessment & Plan (1) Dementia: Plan: 86-year-old male with history of dementia, cardiomyopathy, CAD, CKD stage II, hypertension, presenting from home with acutely progressive functional decline, frequent falls. Dementia/falls -Patient follows with [facility]. A review of the patient's [facility] chart shows that, in addition to donepezil, patient had also been on memantine 10 mg twice daily, [facility], and did not have prescribed on admission. -Family had been trying to arrange placement when his falls and mental state acutely worsened. -X-ray of left knee shows some effusion. No evidence of fracture or other acute process. No further plan for management. Patient has a brace. * Donepezil 10 mg nightly, memantine 10 mg twice daily. Add memantine to home meds. * Fall precautions * PT/OT evaluation * Per case management, currently awaiting placement at [facility]. Discharge possible tomorrow. Hypertension -Patient takes metoprolol, isosorbide mononitrate, Entresto at home. -Reduced home metoprolol (succinate) dose due to nighttime drops in BP. * Continue home Entresto, Imdur * Metoprolol tartrate 50 mg qAM, 25 mg qHS. * Trend overnight vitals Ischemic cardiomyopathy: Continue on Entresto, metoprolol, isosorbide mononitrate, Lasix (40 mg p.o. in the morning, 20 mg p.o. in the afternoon), digoxin. CAD: Continue ASA, atorvastatin, metoprolol Atrial fibrillation: Now rate controlled. Anticoagulation (warfarin, ASA) as above. Trend INR. LOIS: CPAP nightly Code: DNR/DNI Dispo: Med-Surg without telemetry FEN/GI: regular DVT Prophylaxis: ASA, warfarin PT/OT: Yes Consults: None Case management: Awaiting placement in SNF before going to [facility] facility (2) Recurrent falls: (3) Generalized weakness: Admission and Anticipated Discharge Date Admission Date: February 05, 2022 Supervising Physician Co-Signing Physician Notes Attending attestation Pt seen and examined in concert with Dr. Eldridge. In agreement with the documented findings as noted in the resident documentation with any exceptions or additions as noted here. Resting comfortably in chair without acute complaint. Looking forward to further engagement with PT. On examination, S1/S2 nl RRR no MCG. CTAB. Abd NT/ND BS+ve. VS, nursing notes reviewed. INR 1.6 Recurrent falls in the setting of progressive dementia - PT/OT - case management aware and working for placement. Continue memantine, Aricept Hypertension in the setting of ICM with nightly asymptomatic hypotension - continue entresto, isosorbide. Will reduce PM metoprolol to 25mg and monitor closely. Likely to increase back to 50 BID at discharge. Coronary artery disease - continue ASA, statin, metoprolol as above. Consider revisit ASA 2/2 bleed risk w/ ASA, warfarin as outpatient. Else see resident documentation as noted. Subjective No acute events overnight. Patient is resting comfortably in bed on arrival this morning. He has no acute complaints. ROS completely negative. Review of Systems Review of Systems: All systems reviewed & are unremarkable except as noted in HPI & below Physical Exam Physical Exam: General: Frail-appearing, but alert, interactive, and in no acute distress. HEENT: Normocephalic, atraumatic. EOM intact. Good conjugate gaze. Nares patent. Moist mucosal membranes. Neck: Supple. No lymphadenopathy. Normal ROM. CV: Regular rate and rhythm. Normal S1 and S2. 3/6 decrescendo systolic murmur loudest at apex heard on auscultation. No gallops or rubs. Respiratory: Normal respiratory effort. Lungs clear to auscultation bilaterally. No crackles, rhonchi, or wheezes. Abdomen: Soft, nondistended abdomen. No bruits heard on auscultation. No tenderness to deep palpation. Extremities: Capillary refill <2 sec. 2+ dp equal bilaterally. No pedal edema. Effusion noted in left knee Neuro: Alert and oriented x2. Skin: Clean, dry, and intact. No rashes, bruises, or erythema. Results & Data Results & Data ([facility]) Vital Signs (Past 12 Hours) Vital Signs Temp Pulse Pulse Resp BP BP Pulse Ox 02/08/22 07:25 36.7 C 70 18 125/60 97 02/08/22 04:39 73 140/55 L 02/07/22 23:10 69 102/60 96 02/07/22 20:20 O2 Del Method 02/08/22 07:25 Room Air 02/08/22 04:39 02/07/22 23:10 02/07/22 20:20 Room Air Resident Activity Tracking Resident Involvement: Resident Care Provided Care Provided: Adult Hospital Medicine
[2022-02-08] MEDS: ASPIRIN 81 MG ECTAB PO SCH (08:49)
[2022-02-08] MEDS: ATORVASTATIN 40 MG TAB PO SCH (08:49)
[2022-02-08] MEDS: CALCITONIN SALMON NA 200 IU/AC 3.7 ML BTL SCH (08:49)
[2022-02-08] MEDS: GABAPENTIN 300 MG CAP PO SCH ×3 (08:50→21:57)
[2022-02-08] MEDS: FINASTERIDE 5 MG TAB PO SCH (08:50)
[2022-02-08] MEDS: PANTOprazole 40 MG TAB PO SCH (08:51)
[2022-02-08] MEDS: MEMANTINE HCL 10 MG TAB PO SCH ×2 (08:51→21:56)
[2022-02-08] MEDS: FLUTICASONE PROPIONATE NA SPR 16 GM BTL SCH ×2 (08:52→21:57)
[2022-02-08] MEDS: VALSARTAN/SACUBITRIL 51/49 MG TAB PO SCH ×2 (09:02→21:57)
[2022-02-08] MEDS: METOPROLOL SUCC 50MG EXT REL TAB PO SCH (09:03)
[2022-02-08] MEDS: FUROSEMIDE 40 MG TAB PO SCH (09:03)
[2022-02-08] MEDS: WARFARIN SOD 5 MG TAB PO SCH (17:05)
[2022-02-08] MEDS: FUROSEMIDE 20 MG TAB PO SCH (17:07)
[2022-02-08] MEDS: DIGOXIN 0.125 MG TAB PO SCH (17:09)
[2022-02-08] MEDS: ACETAMINOPHEN 325 MG TAB PO PRN (18:16)
[2022-02-08] MEDS: DONEPEZIL HCL 10 MG TAB PO SCH (21:57)
[2022-02-08] MEDS: ISOSORBIDE MONO EXTENDED REL 60 MG TABCR PO SCH (21:57)
[2022-02-08] MEDS: METOPROLOL SUCC 25MG EXT REL TAB PO SCH (21:58)
[2022-02-08] MEDS ORDERED: MELATONIN 3 MG TAB PO PRN (22:33)
[2022-02-09 07:19] LABS: INR 1.9 (0.9-1.1); Prothrombin Time 19.9 Seconds (9.0-12.0)
[2022-02-09] MEDS: MEMANTINE HCL 10 MG TAB PO SCH ×2 (10:26→20:04)
[2022-02-09] MEDS: METOPROLOL SUCC 50MG EXT REL TAB PO SCH (10:26)
[2022-02-09] MEDS: PANTOprazole 40 MG TAB PO SCH (10:26)
[2022-02-09] MEDS: GABAPENTIN 300 MG CAP PO SCH ×3 (10:27→20:04)
[2022-02-09] MEDS: FUROSEMIDE 40 MG TAB PO SCH (10:27)
[2022-02-09] MEDS: CALCITONIN SALMON NA 200 IU/AC 3.7 ML BTL SCH (10:28)
[2022-02-09] MEDS: ASPIRIN 81 MG ECTAB PO SCH (10:28)
[2022-02-09] MEDS: ATORVASTATIN 40 MG TAB PO SCH (10:28)
[2022-02-09] MEDS: FINASTERIDE 5 MG TAB PO SCH (10:28)
[2022-02-09] MEDS: FLUTICASONE PROPIONATE NA SPR 16 GM BTL SCH ×2 (10:29→20:04)
[2022-02-09] MEDS: VALSARTAN/SACUBITRIL 51/49 MG TAB PO SCH ×2 (10:33→20:04)
--- NOTE | 2022-02-09 11:55 | Hospitalist Progress Note ---
Date of Service February 09, 2022 Assessment & Plan (1) Dementia: Plan: 86-year-old male with history of dementia, cardiomyopathy, CAD, CKD stage II, hypertension, presenting from home with acutely progressive functional decline, frequent falls. Dementia/falls -Patient follows with [facility]. A review of the patient's [facility] chart shows that, in addition to donepezil, patient had also been on memantine 10 mg twice daily, which is not on his [facility] med list, and did not have prescribed on admission. -is currently on Gabapentin 300mg TID started 10/09/20 -Family had been trying to arrange placement when his falls and mental state acutely worsened. -X-ray of left knee shows some effusion. No evidence of fracture or other acute process. No further plan for management. Patient has a brace. * Donepezil 10 mg nightly, memantine 10 mg twice daily. Add memantine to home meds. * Fall precautions * PT/OT evaluation * Per case management, currently awaiting placement at [facility] possibly Friday Hypertension -Patient takes metoprolol, isosorbide mononitrate, Entresto at home. -Reduced home metoprolol (succinate) dose due to nighttime drops in BP. * Continue home Entresto, Imdur, Lasix 40mg and 20mg * Metoprolol tartrate 50 mg qAM, 25 mg qHS. * Trend overnight vitals Ischemic cardiomyopathy: Continue on Entresto, metoprolol, isosorbide mononitrate, Lasix (40 mg p.o. in the morning, 20 mg p.o. in the afternoon), digoxin. CAD: Continue ASA, atorvastatin, metoprolol Atrial fibrillation: Now rate controlled. Anticoagulation (warfarin, ASA) as above. Trend INR. LOIS: CPAP nightly Code: DNR/DNI Dispo: Med-Surg without telemetry FEN/GI: regular DVT Prophylaxis: ASA, warfarin PT/OT: Yes Consults: None Case management: Awaiting placement in SNF before going to [facility] (2) Recurrent falls: (3) Generalized weakness: Admission and Anticipated Discharge Date Admission Date: February 05, 2022 Supervising Physician Co-Signing Physician Notes Attending attestation Pt seen and examined in concert with Dr. Gagnon. In agreement with the documented findings as noted in the resident documentation with any exceptions or additions as noted here. Resting in bed responsive but declining history. On examination, S1/S2 nl RRR no MCG. CTAB. Abd NT/ND BS+ve. VS, nursing notes reviewed. INR 1.9 Recurrent falls in the setting of progressive dementia - PT/OT - case management aware and working for placement. Continue memantine, Aricept Hypertension in the setting of ICM with nightly asymptomatic hypotension - continue entresto, isosorbide. O/N pressures improved with PM metoprolol 25mg. Monitor closely. Consider increase back to 50 BID at discharge. Coronary artery disease - continue ASA, statin, metoprolol as above. Consider revisit ASA 2/2 bleed risk w/ ASA, warfarin as outpatient. Else see resident documentation as noted. Subjective Patient seen seated in chair by bedside, calm comfortable cooperative. He denies any complaints at this time, eating well enjoys breakfast, looks forward to leaving the hospital. Review of Systems Review of Systems: Negative fever chills Negative headache dizziness Negative chest pain palpitations SOB Negative nausea vomitting diarrhea constipation Physical Exam Constitutional: well developed, well nourished, cooperative and comfortable Eyes: PERRL, conjunctivae normal, anicteric sclerae ENMT: external ear and nose normal, oropharynx normal Neck: trachea midline, no thyromegaly Respiratory: normal respiratory effort, lungs clear to auscultation Cardiovascular: Rate/Rhythm: regular rate and regular rhythm Chest (Breasts): normal inspection/palpation of breasts Gastrointestinal (Abdomen): Inspection/Auscultation: abdomen normal to inspection Percussion/Palpation: abdomen soft; abdomen nontender Skin: no rashes, warm and dry Results & Data Results & Data ([facility]) Vital Signs (Past 12 Hours) Vital Signs Temp Pulse Resp BP Pulse Ox O2 Del Method 02/09/22 10:33 71 102/51 L 02/09/22 08:24 36.6 C 72 16 128/70 97 Room Air Diagnostic Findings Laboratory Results WBC 8.53 K/ul (4.8-10.8) 02/06/22 06:17 RBC 3.91 M/uL (4.63-6.08) L 02/06/22 06:17 Hgb 12.9 g/dl (14.0-18.0) L 02/06/22 06:17 Hct 37.5 % (40.1-51.0) L 02/06/22 06:17 MCV 95.9 fL (80.0-100.0) 02/06/22 06:17 MCH 33.0 pg (25.0-34.0) 02/06/22 06:17 MCHC 34.4 g/dL (32.0-36.0) 02/06/22 06:17 RDW Std Deviation 50.7 fL (36.4-46.3) H 02/06/22 06:17 RDW Coeff of Sawyer 14.5 % (11.5-14.5) 02/06/22 06:17 Plt Count 234 K/uL (130-400) 02/06/22 06:17 MPV 10.2 fL (9.4-12.4) 02/06/22 06:17 Immature Gran % (Auto) 0.3 % 02/04/22 21:24 Neut % (Auto) 75.7 % 02/04/22 21:24 Lymph % (Auto) 13.7 % 02/04/22 21:24 Payne % (Auto) 8.5 % 02/04/22 21:24 Eos % (Auto) 1.5 % 02/04/22 21:24 Baso % (Auto) 0.3 % 02/04/22 21:24 Neut # (Auto) 7.41 K/uL (1.4-6.5) H 02/04/22 21:24 Lymph # (Auto) 1.34 K/uL (1.2-3.4) 02/04/22 21:24 Payne # (Auto) 0.83 K/uL (0.24-0.82) H 02/04/22 21:24 Eos # (Auto) 0.15 K/uL (0-0.50) 02/04/22 21:24 Baso # (Auto) 0.03 K/uL (0-0.2) 02/04/22 21:24 Immature Gran # (Auto) 0.03 K/uL (0.00-0.02) H 02/04/22 21:24 PT 19.9 Seconds (9.0-12.0) H 02/09/22 06:25 INR 1.9 (0.9-1.1) H 02/09/22 06:25 Sodium 138 mmol/L (136-145) 02/06/22 06:17 Potassium 4.1 mmol/L (3.5-5.1) 02/06/22 06:17 Chloride 100 mmol/L (98-107) 02/06/22 06:17 Carbon Dioxide 32 mmol/L (21-32) 02/06/22 06:17 Anion Gap 6 (3-11) 02/06/22 06:17 BUN 30 mg/dl (6-23) H 02/06/22 06:17 Creatinine 1.34 mg/dl (0.6-1.4) 02/06/22 06:17 Est Cr Clr Drug Dosing 34.1 ml/min 02/06/22 06:17 Est GFR ( Amer) 55.2 ml/min 02/06/22 06:17 Est GFR (Non-Af Amer) 47.6 ml/min 02/06/22 06:17 BUN/Creatinine Ratio 22.4 (10-20) H 02/06/22 06:17 Glucose 92 mg/dl (70-99(Fasting)) 02/06/22 06:17 Calcium 8.9 mg/dl (8.5-10.1) 02/06/22 06:17 Total Bilirubin 0.9 mg/dl (0.2-1.0) 02/06/22 06:17 Direct Bilirubin 0.2 mg/dl (0-0.2) 02/06/22 06:17 AST 16 U/L (13-39) 02/06/22 06:17 ALT 12 U/L (7-52) 02/06/22 06:17 Alkaline Phosphatase 57 U/L (34-104) 02/06/22 06:17 Total Protein 6.2 gm/dl (6.0-8.3) 02/06/22 06:17 Albumin 3.5 gm/dl (3.4-5.0) 02/06/22 06:17 Globulin 3.0 gm/dl (2.5-4.0) 02/04/22 21:24 Albumin/Globulin Ratio 1.3 (0.9-2) 02/04/22 21:24 Urine Color Yellow 02/04/22 22:22 Urine Appearance Clear (Clear) 02/04/22 22:22 Urine pH 5.0 (4.5-7.5) 02/04/22 22:22 Ur Specific [place] 1.018 (1.000-1.030) 02/04/22 22:22 Urine Protein Negative (Negative) 02/04/22 22: Urine Glucose (UA) Negative (Negative) 02/04/22 22: Urine Ketones Trace (Negative) H 02/04/22 22: Urine Blood Negative (Negative) 02/04/22 22: Urine Nitrite Negative (Negative) 02/04/22 22: Urine Bilirubin Negative (Negative) 02/04/22 22: Urine Urobilinogen Negative (Negative) 02/04/22 22: Ur Leukocyte Esterase Negative (Negative) 02/04/22 22: Digoxin 1.7 ng/ml (0.8-2.0) 02/06/22 06:17 SARS-CoV-2, RNA, NAAT NEGATIVE (NEGATIVE) 02/04/22 23:39 Impressions Abdomen/Pelvis CT 02/04/22 23:27 CT SCAN OF THE ABDOMEN AND PELVIS WITHOUT IV CONTRAST CLINICAL HISTORY: Generalized abdominal pain. Constipation. COMPARISON STUDY: Abdominal CT dated 10/09/2020. TECHNIQUE: CT scan of the abdomen and pelvis is performed from the lung bases to the proximal femora. Images are reviewed in the axial, sagittal, and coronal planes. IV contrast was not administered for this examination. Note that the examination was performed in suboptimal fashion without oral and IV contrast. A dose lowering technique was utilized adhering to the principles of ALARA. CT DOSE: 1195.55 mGy.cm FINDINGS: Lung bases: The patient is status post midline sternotomy and aortic valve surgery. The heart is enlarged and without pericardial effusion. The coronary arteries are densely calcified. Pacemaker leads are noted. Emphysematous change is noted. Fibrotic change is seen at the lung bases comment bibasilar scarring/atelectasis. Interlobar septal thickening is suggested. Patchy groundglass consolidation is noted in the lower lobes. There are calcified granulomas. A 9 mm right middle lobe pulmonary nodule is again seen on image #25. There is a tiny hiatal hernia. Liver: The unenhanced liver is normal in size, contour, and attenuation. There is no intrahepatic biliary ductal dilatation. Gallbladder: Unremarkable. Spleen: Normal in size and attenuation. Pancreas: The unenhanced pancreas is moderately atrophic and grossly unremarkable. Adrenal glands: Unremarkable. Kidneys: The unenhanced kidneys demonstrate mild cortical atrophy and are without hydronephrosis. There are no renal calculi identified. A 1.5 cm indeterminant complex lesion is again seen arising from the upper pole right kidney on image #171. This likely represent a complex cyst when correlated with a 10/09/2020 examination. A 1.8 cm cyst arises from the right lower pole and is also unchanged. Abdominal vasculature: There is advanced atherosclerotic calcification and ectasia of the abdominal aorta. Bowel: There is advanced colonic diverticulosis without CT evidence of acute diverticulitis. No bowel obstruction is seen. Moderate fecal retention is noted throughout the colon. The appendix is well-visualized and normal. Peritoneum: There is no intraperitoneal free air or abdominal ascites. Lymphadenopathy: None. Pelvic viscera: The prostate gland is enlarged and heterogeneous noting median lobe hypertrophy. The bladder wall is thickened and trabeculated indicating chronic outlet obstruction. There is evidence of previous right inguinal her niorrhaphy. Skeletal structures: The skeletal structures are heterogeneously osteopenic. There are chronic compression injuries of T9, T12, L1, L2, L4, and L5. Advanced cerebral spondylosis is observed. No lytic or blastic lesions are seen. IMPRESSION: 1. No acute infectious or inflammatory findings are identified in the abdomen or pelvis. 2. Moderate constipation. No bowel obstruction is seen 3. Emphysema, cardiomegaly, and cardiac pacemaker. Intralobular septal thickening at the lung bases could be seen with acute versus chronic congestive change and clinical correlation will be required. 4. Mild patchy groundglass consolidation is seen at both lung bases. This could represent mild pulmonary edema and/or an infectious/inflammatory pneumonitis. Clinical correlation will be required. 5. Advanced colonic diverticulosis without CT evidence of acute diverticulitis. 6. A 9 mm right middle lobe pulmonary nodule is pathologically indeterminate and unchanged. This can be followed if clinically warranted. 7. Additional findings as above. ACT 112: Negative or not required by law. Electronically signed by: Glen Noriega M.D. 02/05/2022 9:[address] 02/04/22 23:[address] DOSE: HISTORY: Confusion. Altered mental status. TECHNIQUE: Multiaxial CT images of the head were performed without the use of intravenous contrast. Automated exposure control was utilized for this study. A dose lowering technique was utilized adhering to the principles of ALARA. Comparison: Brain MRI 09/14/2020. Findings: The paranasal sinuses and mastoid air cells are clear. The calvarium and skull base are intact. There is no mass, hematoma, midline shift, acute infarct. White matter hypodensity is nonspecific but suggestive of microvascular ischemic change. The ventricles and sulci demonstrate mild age-related involutional changes. 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 Impression: No significant change compared to the prior study. No acute intracranial abnormality. ACT 112: Negative or not required by law. Electronically signed by: Sukhi Moscoso M.D. 02/05/2022 7:20 AM Knee X-Ray 02/05/22 14:17 LEFT KNEE 3 VIEWS CLINICAL HISTORY: Chronic left knee pain. FINDINGS: AP, crosstable lateral, and sunrise views of the left knee are compared to study dated 05/09/2014. The skeletal structures are osteopenic. No fracture is seen. There is advanced tricompartmental degenerative joint space narrowing. There is near complete loss of the joint space in the medial compartment with bony sclerosis and osteochondral irregularity. There are large marginal osteophytes and patellar enthesophytes. Chondrocalcinosis is seen in both the medial and lateral compartments. There is a moderate joint effusion with calcified joint bodies. Mild soft tissue swelling is present around the knee. Bony overgrowth is seen along the posterior aspect of the distal femur and along the anterior and posterior aspect of the tibial plateau. Advanced atherosclerotic calcification is noted in the popliteal artery. IMPRESSION: 1. No acute bony abnormality is identified. 2. Osteopenia with advanced degenerative change and chondrocalcinosis as above. 2. Joint effusion and calcified joint bodies. Electronically signed by: Glen Noriega M.D. 02/05/2022 3:03 PM Medications Administered Current Inpatient Medications Acetaminophen (Acetaminophen 325 Mg Tab) 650 mg PO Q4H PRN PRN Reason: pain/fever Stop: 03/07/22 03:32 Last Admin: 10/07/22 18:16 Dose: 650 mg Aspirin (Aspirin 81 Mg Ectab) 81 mg PO DAILY ADRIAN Stop: 03/07/22 08:59 Last Admin: 02/09/22 10:28 Dose: 81 mg Atorvastatin Calcium (Atorvastatin 40 Mg Tab) 40 mg PO DAILY ADRIAN Stop: 03/07/22 08:59 Last Admin: 02/09/22 10:28 Dose: 40 mg Calcitonin Naches (Calcitonin Naches Na 200 Iu/Ac 3.7 Ml Btl) 1 sprays NA DAILY ADRIAN Stop: 03/07/22 08:59 Last Admin: 02/09/22 10:28 Dose: 1 sprays Digoxin (Digoxin 0.125 Mg Tab) 0.125 mg PO DAILY@1600 [facility] Stop: 03/07/22 15:59 Last Admin: 02/08/22 17:09 Dose: 0.125 mg Donepezil HCl (Donepezil Hcl 10 Mg Tab) 10 mg PO HS ADRIAN Stop: 03/07/22 20:59 Last Admin: 02/08/22 21:57 Dose: 10 mg Finasteride (Finasteride 5 Mg Tab) 5 mg PO QAM ADRIAN Stop: 03/07/22 08:59 Last Admin: 02/09/22 10:28 Dose: 5 mg Fluticasone Propionate (Fluticasone Propionate Na Spr 16 Gm Btl) 1 sprays NA BID ADRIAN Stop: 03/07/22 08:59 Last Admin: 02/09/22 10:29 Dose: 1 sprays Furosemide (Furosemide 40 Mg Tab) 40 mg PO QAM ADRIAN Stop: 03/07/22 08:59 Last Admin: 02/09/22 10:27 Dose: 40 mg Furosemide (Furosemide 20 Mg Tab) 20 mg PO DAILY@1700 ADRIAN Stop: 03/07/22 16:59 Last Admin: 02/08/22 17:07 Dose: 20 mg Gabapentin (Gabapentin 300 Mg Cap) 300 mg PO TID ADRIAN Stop: 03/07/22 08:59 Last Admin: 02/09/22 10:27 Dose: 300 mg Isosorbide Mononitrate (Isosorbide Payne Extended Rel 60 Mg Tabcr) 60 mg PO HS ADRIAN Stop: 03/07/22 20:59 Last Admin: 02/08/22 21:57 Dose: 60 mg Melatonin (Melatonin 3 Mg Tab) 3 mg PO HS PRN PRN Reason: Sleep Stop: 03/10/22 22:32 Last Admin: 02/09/22 00:20 Dose: 3 mg Memantine (Memantine Hcl 10 Mg Tab) 10 mg PO BID [facility] Stop: 03/08/22 10:59 Last Admin: 02/09/22 10:26 Dose: 10 mg Menthol (Cough Drop (Sugar Free) Katlyn 24 Katlyn/1 Box) 1 katlyn BUCCAL PRN PRN PRN Reason: Sore Throat Stop: 03/09/22 19:13 Last Admin: 02/08/22 04:41 Dose: 1 katlyn Metoprolol Succinate (Metoprolol Succ 50mg Ext Rel Tab) [facility] [place] Stop: 03/11/22 08:59 Last Admin: 02/09/22 10:26 Dose: 50 mg Metoprolol Succinate (Metoprolol Succ 25mg Ext Rel Tab) 25 mg PO HS [facility] Stop: 03/10/22 20:59 Last Admin: 02/08/22 21:58 Dose: 25 mg Miscellaneous (Order Awaiting Action: Cyclosporine [Restasis] 0.05 % Dropperette) 1 each N/A QS [facility] Stop: 03/07/22 07:59 Last Admin: 02/09/22 10:25 Dose: Not Given Ondansetron HCl (Ondansetron Inj 2 Mg/Ml 2 Ml Vial) 4 mg IV Q6H PRN PRN Reason: Nausea Stop: 03/07/22 03:32 Pantoprazole Sodium (Pantoprazole 40 Mg Tab) [facility] [place] Stop: 03/07/22 08:59 Last Admin: 02/09/22 10:26 Dose: 40 mg Sacubitril/Valsartan (Valsartan/Sacubitril 51/49 Mg Tab) 1 tab PO BID [facility] Stop: 03/07/22 08:59 Last Admin: 02/09/22 10:33 Dose: Not Given Warfarin Sodium (Warfarin Sod 5 Mg Tab) 5 mg PO MoFr@1600 [facility] Stop: 03/10/22 15:59 Last Admin: 02/08/22 17:05 Dose: 5 mg Warfarin Sodium (Warfarin Sod 2.5 Mg Tab) 2.5 mg PO SuTuWeThSa@1600 [facility] Stop: 03/07/22 15:59 Last Admin: 02/07/22 17:10 Dose: 2.5 mg Resident Activity Tracking Resident Involvement: Resident Care Provided Care Provided: Adult Hospital Medicine
[2022-02-09] MEDS: WARFARIN SOD 2.5 MG TAB PO SCH (16:30)
[2022-02-09] MEDS: DIGOXIN 0.125 MG TAB PO SCH (16:30)
[2022-02-09] MEDS: FUROSEMIDE 20 MG TAB PO SCH (16:31)
[2022-02-09] MEDS: DONEPEZIL HCL 10 MG TAB PO SCH (20:04)
[2022-02-09] MEDS: METOPROLOL SUCC 25MG EXT REL TAB PO SCH (20:06)
[2022-02-09] MEDS: ISOSORBIDE MONO EXTENDED REL 60 MG TABCR PO SCH (20:07)
--- NOTE | 2022-02-10 06:43 | Hospitalist Progress Note ---
Date of Service February 10, 2022 Assessment & Plan (1) Dementia: Plan: 86-year-old male with history of dementia, cardiomyopathy, CAD, CKD stage II, hypertension, presenting from home with acutely progressive functional decline, frequent falls. Dementia/falls -Patient follows with [facility]. A review of the patient's [facility] chart shows that, in addition to donepezil, patient had also been on memantine 10 mg twice daily, which is not on his [facility] med list, and did not have prescribed on admission. -is currently on Gabapentin 300mg TID started 10/09/20, consider down titrating given recurrent falls -Family had been trying to arrange placement when his falls and mental state acutely worsened. -X-ray of left knee shows some effusion. No evidence of fracture or other acute process. No further plan for management. Patient has a brace. * Donepezil 10 mg nightly, memantine 10 mg twice daily. Add memantine to home meds. * Fall precautions * PT/OT evaluation * Per case management, currently awaiting placement at [facility] possibly Friday Hypertension -Patient takes metoprolol, isosorbide mononitrate, Entresto at home. -Reduced home metoprolol (succinate) dose due to nighttime drops in BP. * Continue home Entresto, Imdur, Lasix 40mg and 20mg * Metoprolol tartrate 50 mg qAM, 25 mg qHS. * Trend overnight vitals Ischemic cardiomyopathy: Continue on Entresto, metoprolol, isosorbide mononitrate, Lasix (40 mg p.o. in the morning, 20 mg p.o. in the afternoon), digoxin. CAD: Continue ASA, atorvastatin, metoprolol Atrial fibrillation: Now rate controlled. Anticoagulation (warfarin, ASA) as above. Trend INR. LOIS: CPAP nightly Code: DNR/DNI Dispo: Med-Surg without telemetry FEN/GI: regular DVT Prophylaxis: ASA, warfarin PT/OT: Yes Consults: None Case management: Awaiting placement in SNF before going to [facility] (2) Recurrent falls: (3) Generalized weakness: Admission and Anticipated Discharge Date Admission Date: February 05, 2022 Supervising Physician Co-Signing Physician Notes Attending attestation Pt seen and examined in concert with Dr. Gagnon. In agreement with the documented findings as noted in the resident documentation with any exceptions or additions as noted here. No acute complaints at time of evaluation or overnight. On examination, S1/S2 nl RRR no MCG. CTAB. Abd NT/ND BS+ve. VS, nursing notes re viewed. INR 2.0 Recurrent falls in the setting of progressive dementia - PT/OT - case management aware and working for placement. Continue memantine, Aricept Hypertension in the setting of ICM with asymptomatic hypotension - continue entresto, isosorbide. consider decrease of metoprolol to 25mg BID if ongoing low BP Hyponatremia - 140 on repeat. Likely lab error. Coronary artery disease - continue ASA, statin, metoprolol as above. Consider revisit ASA 2/2 bleed risk w/ ASA, warfarin as outpatient. Else see resident documentation as noted. Subjective Patient seen seated in chair by bedside, calm comfortable cooperative. States breakfast was good this morning. Is aware of placement likely at [facility] on Friday. Case management made aware insurance is denying hospital bill. Review of Systems Review of Systems: Negative fever chills Negative headache dizziness Negative chest pain palpitations SOB Negative nausea vomitting diarrhea constipation Physical Exam Constitutional: well developed, well nourished, cooperative and comfortable Eyes: PERRL, conjunctivae normal, anicteric sclerae ENMT: external ear and nose normal, oropharynx normal Neck: trachea midline, no thyromegaly Respiratory: normal respiratory effort, lungs clear to auscultation Cardiovascular: Rate/Rhythm: regular rate and regular rhythm Chest (Breasts): normal inspection/palpation of breasts Gastrointestinal (Abdomen): Inspection/Auscultation: abdomen normal to inspection Percussion/Palpation: abdomen soft; abdomen nontender Skin: no rashes, warm and dry Results & Data Results & Data ([facility]) Vital Signs (Past 12 Hours) Vital Signs Temp Pulse Pulse Resp BP Pulse Ox O2 Del Method 02/09/22 21:04 37.0 C 68 16 97/56 L 95 Room Air 02/09/22 20:00 80 90/45 L Laboratory Results 02/10/22 02/10/22 Range/Units 06:24 06:24 PT 20.9 H (9.0-12.0) Seconds INR 2.0 H (0.9-1.1) Sodium 131 L (136-145) mmol/L Potassium 3.5 (3.5-5.1) mmol/L Chloride 97 L (98-107) mmol/L Carbon Dioxide 31 (21-32) mmol/L Anion Gap 3 (3-11) BUN 34 H (6-23) mg/dl Creatinine 1.08 (0.6-1.4) mg/dl Est Cr Clr Drug Dosing 42.4 ml/min Est GFR ( Amer) 71.6 ml/min Est GFR (Non-Af Amer) 61.8 ml/min BUN/Creatinine Ratio 31.5 H (10-20) Glucose 105 H (70-99(Fasting)) mg/dl Calcium 8.9 (8.5-10.1) mg/dl Medications Administered Current Inpatient Medications Acetaminophen (Acetaminophen 325 Mg Tab) 650 mg PO Q4H PRN PRN Reason: pain/fever Stop: 03/07/22 03:32 Last Admin: 02/08/22 18:16 Dose: 650 mg Aspirin (Aspirin 81 Mg Ectab) 81 mg PO DAILY ADRIAN Stop: 03/07/22 08:59 Last Admin: 02/10/22 08:36 Dose: 81 mg Atorvastatin Calcium (Atorvastatin 40 Mg Tab) 40 mg PO DAILY ADRIAN Stop: 03/07/22 08:59 Last Admin: 02/10/22 08:33 Dose: 40 mg Calcitonin Emery (Calcitonin Emery Na 200 Iu/Ac 3.7 Ml Btl) 1 sprays NA DAILY ADRIAN Stop: 03/07/22 08:59 Last Admin: 02/10/22 08:37 Dose: 1 sprays Digoxin (Digoxin 0.125 Mg Tab) 0.125 mg PO DAILY@1600 ADRIAN Stop: 03/07/22 15:59 Last Admin: 02/09/22 16:30 Dose: 0.125 mg Donepezil HCl (Donepezil Hcl 10 Mg Tab) 10 mg PO HS ADRIAN Stop: 03/07/22 20:59 Last Admin: 02/09/22 20:04 Dose: 10 mg Finasteride (Finasteride 5 Mg Tab) 5 mg PO QAM [facility] Stop: 03/07/22 08:59 Last Admin: 02/10/22 08:34 Dose: 5 mg Fluticasone Propionate (Fluticasone Propionate Na Spr 16 Gm Btl) 1 sprays NA BID [facility] Stop: 03/07/22 08:59 Last Admin: 02/10/22 08:35 Dose: 1 sprays Furosemide (Furosemide 40 Mg Tab) 40 mg PO QAM [facility] Stop: 03/07/22 08:59 Last Admin: 02/10/22 08:33 Dose: 40 mg Furosemide (Furosemide 20 Mg Tab) 20 mg PO DAILY@1700 [facility] Stop: 03/07/22 16:59 Last Admin: 02/09/22 16:31 Dose: 20 mg Gabapentin (Gabapentin 300 Mg Cap) 300 mg PO TID [facility] Stop: 03/07/22 08:59 Last Admin: 02/10/22 14:11 Dose: 300 mg Isosorbide Mononitrate (Isosorbide Bracken Extended Rel 60 Mg Tabcr) 60 mg PO [facility] Stop: 03/07/22 20:59 Last Admin: 02/09/22 20:07 Dose: Not Given Melatonin (Melatonin 3 Mg Tab) 3 mg PO HS PRN PRN Reason: Sleep Stop: 03/10/22 22:32 Last Admin: 02/09/22 00:20 Dose: 3 mg Memantine (Memantine Hcl 10 Mg Tab) 10 mg PO BID [facility] Stop: 03/08/22 10:59 Last Admin: 02/10/22 08:34 Dose: 10 mg Menthol (Cough Drop (Sugar Free) Katlyn 24 Katlyn/1 Box) 1 katlyn BUCCAL PRN PRN PRN Reason: Sore Throat Stop: 03/09/22 19:13 Last Admin: 02/08/22 04:41 Dose: 1 katlyn Metoprolol Succinate (Metoprolol Succ 50mg Ext Rel Tab) [facility] Stop: 03/11/22 08:59 Last Admin: 02/10/22 08:46 Dose: 50 mg Metoprolol Succinate (Metoprolol Succ 25mg Ext Rel Tab) 25 mg PO HS [facility] Stop: 03/10/22 20:59 Last Admin: 02/09/22 20:06 Dose: Not Given Miscellaneous (Order Awaiting Action: Cyclosporine [Restasis] 0.05 % Dropperette) 1 each N/A QS [facility] Stop: 03/07/22 07:59 Last Admin: 02/10/22 08:37 Dose: Not Given Ondansetron HCl (Ondansetron Inj 2 Mg/Ml 2 Ml Vial) 4 mg IV Q6H PRN PRN Reason: Nausea Stop: 03/07/22 03:32 Pantoprazole Sodium (Pantoprazole 40 Mg Tab) 40 mg PO QAM [facility] Stop: 03/07/22 08:59 Last Admin: 02/10/22 08:34 Dose: 40 mg Sacubitril/Valsartan (Valsartan/Sacubitril 51/49 Mg Tab) 1 tab PO BID [facility] Stop: 03/07/22 08:59 Last Admin: 02/10/22 08:34 Dose: 1 tab Warfarin Sodium (Warfarin Sod 5 Mg Tab) 5 mg PO MoFr@1600 [facility] Stop: 03/10/22 15:59 Last Admin: 02/08/22 17:05 Dose: 5 mg Warfarin Sodium (Warfarin Sod 2.5 Mg Tab) 2.5 mg PO [id number]@1600 [facility] Stop: 03/07/22 15:59 Last Admin: 02/09/22 16:30 Dose: 2.5 mg Resident Activity Tracking Resident Involvement: Resident Care Provided Care Provided: Adult Hospital Medicine
[2022-02-10 07:32] LABS: Prothrombin Time 20.9 Seconds (9.0-12.0)
[2022-02-10 07:49] LABS: BUN Creatinine Ratio 31.5 (10-20); Calcium 8.9 mg/dl (8.5-10.1); Creatinine Clr Calc Pharmacy 42.4 ml/min; Est GFR (African American) 71.6 ml/min; Est GFR (Non-African American) 61.8 ml/min; Potassium 3.5 mmol/L (3.5-5.1)
[2022-02-10] MEDS: FUROSEMIDE 40 MG TAB PO SCH (08:33)
[2022-02-10] MEDS: ATORVASTATIN 40 MG TAB PO SCH (08:33)
[2022-02-10] MEDS: GABAPENTIN 300 MG CAP PO SCH ×3 (08:34→20:13)
[2022-02-10] MEDS: VALSARTAN/SACUBITRIL 51/49 MG TAB PO SCH ×2 (08:34→20:15)
[2022-02-10] MEDS: FINASTERIDE 5 MG TAB PO SCH (08:34)
[2022-02-10] MEDS: PANTOprazole 40 MG TAB PO SCH (08:34)
[2022-02-10] MEDS: MEMANTINE HCL 10 MG TAB PO SCH ×2 (08:34→20:15)
[2022-02-10] MEDS: FLUTICASONE PROPIONATE NA SPR 16 GM BTL SCH ×2 (08:35→20:12)
[2022-02-10] MEDS: ASPIRIN 81 MG ECTAB PO SCH (08:36)
[2022-02-10] MEDS: CALCITONIN SALMON NA 200 IU/AC 3.7 ML BTL SCH (08:37)
[2022-02-10] MEDS: METOPROLOL SUCC 50MG EXT REL TAB PO SCH (08:46)
[2022-02-10] MEDS: WARFARIN SOD 2.5 MG TAB PO SCH (16:53)
[2022-02-10] MEDS: DIGOXIN 0.125 MG TAB PO SCH (16:54)
[2022-02-10] MEDS: FUROSEMIDE 20 MG TAB PO SCH (16:54)
[2022-02-10 17:40] LABS: Anion Gap 6.8 (3-11)
[2022-02-10] MEDS: DONEPEZIL HCL 10 MG TAB PO SCH (20:12)
[2022-02-10] MEDS: ISOSORBIDE MONO EXTENDED REL 60 MG TABCR PO SCH (20:14)
[2022-02-10] MEDS: METOPROLOL SUCC 25MG EXT REL TAB PO SCH (20:14)
[2022-02-11 06:55] LABS: BUN Creatinine Ratio 27.5 (10-20); Calcium 8.5 mg/dl (8.5-10.1); Creatinine Clr Calc Pharmacy 38.1 ml/min; Est GFR (African American) 63.1 ml/min; Est GFR (Non-African American) 54.4 ml/min; Potassium 4.1 mmol/L (3.5-5.1)
[2022-02-11] MEDS: FLUTICASONE PROPIONATE NA SPR 16 GM BTL SCH ×2 (09:32→20:08)
[2022-02-11] MEDS: MEMANTINE HCL 10 MG TAB PO SCH ×2 (09:34→20:07)
[2022-02-11] MEDS: ASPIRIN 81 MG ECTAB PO SCH (09:34)
[2022-02-11] MEDS: FINASTERIDE 5 MG TAB PO SCH (09:34)
[2022-02-11] MEDS: PANTOprazole 40 MG TAB PO SCH (09:34)
[2022-02-11] MEDS: ATORVASTATIN 40 MG TAB PO SCH (09:34)
[2022-02-11] MEDS: VALSARTAN/SACUBITRIL 51/49 MG TAB PO SCH ×2 (09:34→20:08)
[2022-02-11] MEDS: GABAPENTIN 300 MG CAP PO SCH ×2 (09:35→20:07)
[2022-02-11] MEDS: FUROSEMIDE 40 MG TAB PO SCH (09:35)
[2022-02-11] MEDS: CALCITONIN SALMON NA 200 IU/AC 3.7 ML BTL SCH (09:35)
[2022-02-11] MEDS: METOPROLOL SUCC 50MG EXT REL TAB PO SCH (09:36)
--- NOTE | 2022-02-11 09:39 | Hospitalist Progress Note ---
Date of Service February 11, 2022 Assessment & Plan (1) Dementia: Plan: 86-year-old male with history of dementia, cardiomyopathy, CAD, CKD stage II, hypertension, presenting from home with acutely progressive functional decline, frequent falls. Dementia/falls -Patient follows with [facility]. A review of the patient's [facility] chart shows that, in addition to donepezil, patient had also been on memantine 10 mg twice daily, which is not on his [facility] med list, and did not have prescribed on admission. -Currently on Gabapentin 300mg TID started 10/09/20, consider reducing dose as outpatient given recurrent falls -Family had been trying to arrange placement when his falls and mental state acutely worsened. -X-ray of left knee shows some effusion. No evidence of fracture or other acute process. No further plan for management. Patient has a brace. * Donepezil 10 mg nightly, memantine 10 mg twice daily. Add memantine to home meds. * Fall precautions * PT/OT evaluation * Per case management, currently awaiting placement at [facility] tomorrow- anticipate discharge on 02/11 Hypertension -Patient takes metoprolol, isosorbide mononitrate, Entresto at home. -Reduced home metoprolol (succinate) dose due to nighttime drops in BP. BP largely 90s/50s * Continue home Entresto, Imdur, Lasix 40mg and 20mg * Metoprolol tartrate 50 mg qAM reduced to 25 mg today, continue 25 mg qHS * Trend overnight vitals Ischemic cardiomyopathy: Continue on Entresto, metoprolol, isosorbide mononitrate, Lasix (40 mg p.o. in the morning, 20 mg p.o. in the afternoon), digoxin. CAD: Continue ASA, atorvastatin, metoprolol Atrial fibrillation: Rate controlled, NSR. Anticoagulation (warfarin, ASA) as above. Trend INR. LOIS: CPAP nightly Code: DNR/DNI Dispo: Med-Surg without telemetry FEN/GI: regular DVT Prophylaxis: ASA, warfarin PT/OT: Yes Consults: None Case management: Anticipate discharge to [facility] facility 02/11 (2) Recurrent falls: (3) Generalized weakness: Admission and Anticipated Discharge Date Admission Date: February 05, 2022 Supervising Physician Co-Signing Physician Notes I personally examined the patient and verified all pedroza points of history and e xam, discussed case, and agree with decision making with Dr Jesus feeling OK just weak and awaiting placement. for [facility] tomorrow. vitals noted nad heent nc at mmm breathing unlabored no accessory muscles good effort skin no rashes no pallor or icterus Recurrent falls in the setting of progressive dementia - PT/OT - [facility] tomorrow Hypertension in the setting of ICM with asymptomatic hypotension - continue entresto, isosorbide. consider decrease of metoprolol to 25mg BID if ongoing low BP, reasonable numbers today Coronary artery disease - continue ASA, statin, metoprolol as above. Consider revisit ASA 2/2 bleed risk w/ ASA, warfarin as outpatient. otherwise as above Subjective Patient seen seated in chair by bedside. No acute events overnight. Feeling well, aware he is to be discharged tomorrow. No acute complaints. Review of Systems Review of Systems: Negative fever chills Negative headache dizziness Negative chest pain palpitations SOB Negative nausea vomitting diarrhea constipation Physical Exam Constitutional: well developed, well nourished, cooperative and comfortable Eyes: PERRL, conjunctivae normal, anicteric sclerae ENMT: external ear and nose normal, oropharynx normal Neck: trachea midline, no thyromegaly Respiratory: normal respiratory effort, lungs clear to auscultation Cardiovascular: Rate/Rhythm: regular rate and regular rhythm Chest (Breasts): normal inspection/palpation of breasts Gastrointestinal (Abdomen): Inspection/Auscultation: abdomen normal to inspection Percussion/Palpation: abdomen soft; abdomen nontender Skin: no rashes, warm and dry Results & Data Results & Data ([facility]) Vital Signs (Past 12 Hours) Vital Signs Temp Pulse Resp BP Pulse Ox O2 Del Method 02/11/22 07:41 36.4 C L 68 16 94/50 L 94 Room Air Resident Activity Tracking Resident Involvement: Resident Care Provided Care Provided: Adult Hospital Medicine
[2022-02-11] MEDS: WARFARIN SOD 5 MG TAB PO SCH (15:48)
[2022-02-11] MEDS: DIGOXIN 0.125 MG TAB PO SCH (15:48)
[2022-02-11] MEDS: FUROSEMIDE 20 MG TAB PO SCH (17:33)
--- NOTE | 2022-02-11 18:21 | Billing Data ---
Date of Service February 11, 2022 Coding Level of Care Code 23071 Subseq Hosp Care Lvl 2
[2022-02-11] MEDS: METOPROLOL SUCC 25MG EXT REL TAB PO SCH (20:07)
[2022-02-11] MEDS: ISOSORBIDE MONO EXTENDED REL 60 MG TABCR PO SCH (20:08)
[2022-02-11] MEDS: DONEPEZIL HCL 10 MG TAB PO SCH (20:08)
[2022-02-11] MEDS: ACETAMINOPHEN 325 MG TAB PO PRN (20:46)
[2022-02-12 06:50] LABS: INR 1.6 (0.9-1.1); Prothrombin Time 16.5 Seconds (9.0-12.0)
[2022-02-12] MEDS: VALSARTAN/SACUBITRIL 51/49 MG TAB PO SCH (08:36)
[2022-02-12] MEDS: FUROSEMIDE 40 MG TAB PO SCH (08:36)
[2022-02-12] MEDS: ATORVASTATIN 40 MG TAB PO SCH (08:58)
[2022-02-12] MEDS: MEMANTINE HCL 10 MG TAB PO SCH (08:58)
[2022-02-12] MEDS: FINASTERIDE 5 MG TAB PO SCH (08:58)
[2022-02-12] MEDS: GABAPENTIN 300 MG CAP PO SCH (08:58)
[2022-02-12] MEDS: ASPIRIN 81 MG ECTAB PO SCH (08:59)
[2022-02-12] MEDS: FLUTICASONE PROPIONATE NA SPR 16 GM BTL SCH (08:59)
[2022-02-12] MEDS: PANTOprazole 40 MG TAB PO SCH (08:59)
[2022-02-12] MEDS ORDERED: METOPROLOL SUCC 25MG EXT REL TAB PO SCH (09:00)
[2022-02-12] MEDS: CALCITONIN SALMON NA 200 IU/AC 3.7 ML BTL SCH (09:00)
--- NOTE | 2022-02-12 10:02 | Discharge Summary ---
Date of Service February 12, 2022 Admission HPI Per Admitting Provider Víctor Coffey is an 86-year-old male with history of COPD, CAD, CKD, CHF presenting with progressive generalized weakness, gait instability and frequent falls.Patient presented with family however, during my encounter no family was present at bedside.By report he has had progressive decline. He has had episodes of confusion and altered mental status.Today he was more confused than usual which prompted the family to bring him to the ER. Family has been in contact with [facility] to try to facilitate placement. During my encounter patient with no acute complaints. He denies fevers, chills, chest pain, cough, shortness of breath, abdominal pain, nausea, vomiting, diarrhea. He does admit to being generally weak but does not feel that this has worsened significantly over the last several days. He states that he eats well overall but has had a decreased appetite lately. He does fall reportedly 1-2 times per week. Denies loss of consciousness or head trauma. Patient offers no additional complaints In the ER he is afebrile, hemodynamically stable, no acute distress. Resting comfortably. Participates in exam and answers questions appropriately. Admission Exam Per Admitting Provider General: Frail, elderly malepatient resting comfortably, NAD, non-toxic in appearance, AA&O x 3 Skin: warm, dry, intact, no rashes or lesions HEENT: NC/AT, PERRL, EOMI, anicteric sclera, conjunctiva without injection, external ear normal to inspection and nontender, nares patent, moist mucus membranes, dentition intact, no oropharyngeal lesions, neck supple, trachea midline, no LAD, no thyromegaly, no JVD Heart: +S1/S2, regular, no m/r/g Lungs: equal air entry bilaterally, no rales/rhonchi/wheezes Abd: +BS, soft, NT/ND, no masses/organomegaly/ascites Ext: warm, 2+ pulses in UE/LE bilaterally, no clubbing/cyanosis or edema Neuro: nonfocal, patient AA&O x 3, speech intact, Patient slow to answer questions but is able to do so appropriately, no facial droop, moving all extremities on command with equal strength 5/5 Principal Diagnosis Weakness Discharge Exam Constitutional well developed, well nourished, cooperative and comfortable Eyes PERRL, conjunctivae normal, anicteric sclerae ENMT external ear and nose normal, oropharynx normal Neck trachea midline, no thyromegaly Respiratory normal respiratory effort, lungs clear to auscultation Cardiovascular Rate/Rhythm: regular rate and regular rhythm Chest (Breasts) normal inspection/palpation of breasts Gastrointestinal (Abdomen) Inspection/Auscultation: abdomen normal to inspection Percussion/Palpation: abdomen soft; abdomen nontender Skin no rashes, warm and dry Discharge Data Allergies Allergy/AdvReac Type Severity Reaction Status Date / Time oxycodone Allergy Severe HALLUCINATI Verified 10/23/21 09:34 ONS TASHA Inhibitors AdvReac Intermediate Cough Verified 10/23/21 09:34 rosuvastatin AdvReac Intermediate CONSTIPATIO Verified 10/23/21 09:34 N niacin AdvReac Mild FLUSHING Verified 10/23/21 09:34 paroxetine AdvReac Mild drowsiness Verified 10/23/21 09:34 Consultations 02/05/22 00:54 ED Decision to Admit Stat Ordered Studies 02/04/22 23:27 CT abd pelvis wo con Urgent CT head/brain wo con Urgent Hospital Course (1) Adult failure to thrive: (2) Generalized weakness: (3) Recurrent falls: (4) Dementia: Plan 86-year-old male with history of dementia, cardiomyopathy, CAD, CKD stage II, hypertension, presenting from home with acutely progressive functional decline, frequent falls. Dementia/falls -Patient follows with [facility]. A review of the patient's [facility] chart shows that, in addition to donepezil, patient had also been on memantine 10 mg twice daily, which is not on his [facility] list, and did not have prescribed on admission. -Currently on Gabapentin 300mg TID started 10/09/20, consider reducing dose as outpatient given recurrent falls -Family had been trying to arrange placement when his falls and mental state acutely worsened. -X-ray of left knee shows some effusion. No evidence of fracture or other acute process. No further plan for management. Patient has a brace. * Donepezil 10 mg nightly, memantine 10 mg twice daily. Memantine added to home medications and continued on discharge. * Discharged to [facility] on 02/11 Hypertension -Patient takes metoprolol, isosorbide mononitrate, Entresto at home. -Reduced home metoprolol (succinate) dose due to nighttime drops in BP. BP largely 90s/50s * Continue home Entresto, Imdur, Lasix 40mg and 20mg * Metoprolol tartrate 25 mg BID (reduced from home dose of 50 mg BID). Continue at 25 mg BID pending BP response * Trend overnight vitals Ischemic cardiomyopathy:Continue on Entresto, metoprolol, isosorbide mononitrate, Lasix (40 mg p.o. in the morning, 20 mg p.o. in the afternoon), digoxin. CAD: Continue ASA, atorvastatin, metoprolol Atrial fibrillation: Rate controlled, NSR. Anticoagulation (warfarin, ASA) as above. Trend INR. 1.6 on day of discharge. LOIS: CPAP nightly Total Time Total Time Spent Total Time Spent (In Minutes): <30 Discharge Plan Discharge Items Patient Disposition: Transfer Inpatient Rehab Fac Reason For Visit: WEAKNESS, GAIT INSTABILITY Discharge Diagnosis: Deconditioning, weakness, dementia Activity: Resume your previous activity Non-emergency contact: Primary Care Provider Call non-emergency contact if: your symptoms worsen Follow-up/Referrals: Raghu Murphy MD [Primary Care Provider] - 02/19/22 2:10 pm (APPT WITH DR REGALADO) Diet: Heart Healthy Addtl Attending Provider Instructions: 86-year-old male with history of dementia, cardiomyopathy, CAD, CKD stage II, hypertension, presenting from home with acutely progressive functional decline, frequent falls. Dementia/falls -Patient follows with [facility]. A review of the patient's [facility] chart shows that, in addition to donepezil, patient had also been on memantine 10 mg twice daily, which is not on his [facility] list, and did not have prescribed on admission. -Currently on Gabapentin 300mg TID started 10/09/20, consider reducing dose as outpatient given recurrent falls -Family had been trying to arrange placement when his falls and mental state acutely worsened. -X-ray of left knee shows some effusion. No evidence of fracture or other acute process. No further plan for management. Patient has a brace. * Donepezil 10 mg nightly, memantine 10 mg twice daily. Memantine added to home medications and continued on discharge. * Discharged to [facility] on 02/11 Hypertension -Patient takes metoprolol, isosorbide mononitrate, Entresto at home. -Reduced home metoprolol (succinate) dose due to nighttime drops in BP. BP largely 90s/50s * Continue home Entresto, Imdur, Lasix 40mg and 20mg * Metoprolol tartrate 25 mg BID (reduced from home dose of 50 mg BID). Continue at 25 mg BID at discharge, adjust pending BP response Ischemic cardiomyopathy:Continue on Entresto, metoprolol, isosorbide mononitrate, Lasix (40 mg p.o. in the morning, 20 mg p.o. in the afternoon), digoxin. CAD: Continue ASA, atorvastatin, metoprolol Atrial fibrillation: Rate controlled, NSR. Anticoagulation (warfarin, ASA) as above. Trend INR. 1.6 on day of discharge. LOIS: CPAP nightly Pending Studies at Discharge: No Stand-Alone Forms: [facility] Skilled Items Patient informed of condition?: Yes DNR: Yes Discharge Level of Care: Other Communicable Disease: No Discharge Prognosis: Stable Lines: None Urinary Catheter: No Medications and DC Order Prescriptions: New memantine [Namenda] 10 mg Tablet 10 mg PO BID Qty: 30 1RF Continued finasteride 5 mg tablet 5 mg PO QAM Qty: 90 3RF Entresto 49-51 mg tablet 1 tab PO BID Qty: 180 3RF furosemide 40 mg tablet See Rx Instructions .ROUTE .COMPLEX Rx Instructions: Take on in the morning and a 1/2 tablet in the evening.; metoprolol succinate 50 mg tablet extended release 24 hr See Rx Instructions .ROUTE .COMPLEX Rx Instructions: TAKE ONE AND A HALF TABLETS TWICE DAILY.; ipratropium bromide 42 mcg (0.06 %) spray,non-aerosol 2 sprays INTNAS BID PRN (Reason: Cold Symptoms) loratadine 10 mg tablet 10 mg PO DAILY melatonin [Melatin] 3 mg tablet 3 mg PO HS PRN (Reason: sleep) Qty: 1 0RF ofloxacin 0.3 % drops 6 drp otic (ear) BID 10 Days Qty: 10 0RF Rx Instructions: right ear multivitamin Tablet 1 tab PO QAM isosorbide mononitrate 60 mg Tablet Extended Release 24 Hr 60 mg PO HS pantoprazole 40 mg Tablet,Delayed Release (Dr/Ec) 40 mg PO QAM acetaminophen [Tylenol] 325 mg Capsule 650 mg PO Q8H PRN (Reason: Fever Or Pain) azelastine 0.15 % (205.5 mcg) spray,non-aerosol 2 spray INTRANASAL BID PRN (Reason: Allergy Symptoms) Restasis 0.05 % dropperette 1 drp OPHTHALMIC (EYE) BID digoxin [Digitek] 125 mcg (0.125 mg) tablet 125 mcg PO QAM fluticasone propionate [Flonase Allergy Relief] 50 mcg/actuation spray,suspension 1 sprays INTNAS BID Rx Instructions: administer into each nostril alendronate 70 mg tablet 70 mg PO PIMENTEL Rx Instructions: TAKE THIS MED EVERY FRIDAY atorvastatin 40 mg tablet 40 mg PO DAILY calcitonin (salmon) 200 unit/actuation [place],Non-Aerosol 1 spray intranasal DAILY donepezil 10 mg tablet 10 mg PO HS gabapentin 300 mg capsule 300 mg PO TID Rx Instructions: Morning, Mid day, and bed time. nitroglycerin 0.4 mg Tablet, Sublingual 0.4 mg sublingual UD Rx Instructions: NEEDED FOR CHEST PAIN : ONE TABLET UNDER THE TONGUE EVERY FIVE MINUTES UP TO 3 DOSES. PreserVision Lutein 226 mg-200 unit -5 mg-0.8 mg Capsule 1 cap PO DAILY aspirin 81 mg Tablet,Delayed Release (Dr/Ec) 81 mg PO DAILY warfarin 5 mg tablet 5 mg PO MOFR warfarin 5 mg tablet 2.5 mg PO SUTUWETHSA Glucosamine Chondroitin 550-30-1 mg Capsule 1 cap PO BID coenzyme Q10 [CoQ-10] 100 mg Capsule 200 mg PO DAILY Discharge Orders: Discharge Order (Routine); Ordered 02/12/22 Ordered By: Radha Wolf/Other Patient Handouts: Preventing Falls in the Home Admission Data Admit Date/Time: 02/05/22 02:22 Attending Provider: Sajan Sargent Admit Provider: Colleen Orozco Primary Care Provider: Raghu Murphy Other Providers: Colleen Orozco ; Abdiaziz Koo Other Interventions: Discharge Summary Assessment (RN) Last Done: 02/12/22 11:13 Supervising Physician Co-Signing Physician Notes I personally examined the patient and verified all pedroza points of history and exam, discussed case, and agree with decision making with Dr Jesus for [facility]. no new complaints vitals noted nad heent nc at mmm breathing unlabored no accessory muscles good effort skin no rashes no pallor or icterus Recurrent falls in the setting of progressive dementia - PT/OT - [facility] Hypertension in the setting of ICM with asymptomatic hypotension - continue entresto, isosorbide, metoprolol. follow BP - possibly might need to wean back medications some Coronary artery disease - continue ASA, statin, metoprolol as above. Consider revisit ASA 2/2 bleed risk w/ ASA, warfarin as outpatient. otherwise as above Resident Activity Tracking Resident Involvement: Resident Care Provided Care Provided: Adult Hospital Medicine
== END 2022-02-12 14:09 | disposition home or self-care (01) | DRG 884 ==
LOC: ED 19:53 → SUATTDRO 02-05 02:22 → EDINP 02-05 02:22 → 3E 02-05 03:32

== ENCOUNTER 2023-03-01 13:34 | Inpatient (IN) ==
[2023-03-01] MEDS ORDERED: dexAMETHasone**PF** 10 MG/ML VIAL IV ONE (14:05)
[2023-03-01] MEDS ORDERED: ACETAMINOPHEN 325 MG TAB PO STA (14:07)
--- NOTE | 2023-03-01 14:07 | Emergency Department Note ---
Impression & Plan Pneumonia due to severe acute respiratory syndrome coronavirus 2 (SARS-CoV-2), Hypoxia, Acute respiratory distress ED Provider Note NAME: HORTENSIA HOLDER AGE: 87 SEX: M : 1935 ARRIVES VIA: Ambulance INFORMANT: Patient, EMS ED PROVIDER(S): Curtis Waller DO CHIEF COMPLAINT: Shortness of breath HPI: The patient is an 87-year-old male who presented to the emergency department for shortness of breath. He was recently diagnosed with COVID-19. The patient was having worsening shortness of breath and confusion. He was brought to the emergency department by ambulance. The patient himself denies having any chest pain but does complain of some difficulty breathing as well as a nonproductive cough. ROS: See above HPI for pertinent positives & negatives. A total of 10 systems reviewed and were otherwise negative. PAST MEDICAL HISTORY: See Below PAST SURGICAL HISTORY: See Below FAMILY HISTORY: See Below SOCIAL HISTORY: See Below HOME MEDICATIONS: See Below ALLERGIES: See Below VITALS: See Below PHYSICAL EXAMINATION: GENERAL: The patient is awake and alert. The patient is somewhat anxious appearing. EYES: The conjunctivae are clear. The pupils are round and reactive. EARS, NOSE, MOUTH AND THROAT: The nose is without any evidence of any deformity. NECK: The neck is nontender and supple. RESPIRATORY: Diminished breath sounds are noted throughout. There were faint rales noted throughout. CARDIOVASCULAR: Regular rate and rhythm noted there no murmurs rubs or gallops normal S1 normal S2. GASTROINTESTINAL: The abdomen is soft. Abdomen is nontender. MUSCULOSKELETAL/EXTREMITIES: There is no evidence of gross deformity full range of motion is noted in the hips and shoulders. SKIN: There is no obvious evidence of any rash. There are no petechiae, pallor or cyanosis noted. NEUROLOGIC: Patient is awake alert and oriented to person place but not time. MEDICAL DECISION MAKING: Patient is an 87-year-old male who presented to the emergency department for shortness of breath. The patient was recent diagnosed with COVID-19. The patient was brought to the emergency department by ambulance. He was found to have significant hypoxia prior to arrival. He was placed on supplemental oxygen. The patient was further treated with a small fluid bolus as well as IV Decadron. He was reevaluated multiple times. I do feel it is likely that his underlying issue is secondary to COVID-19 pneumonia. I discussed the patient's laboratory and radiographic studies with him. [facility] have agreed to evaluate the patient in the emergency department for further management and disposition. The patient was treated with a DuoNeb prior to arrival. Triage Nursing notes reviewed. Prior medical records reviewed Vital Signs: reviewed and remarkable for hypoxia and fever. Differential diagnosis: Reactive airway disease, pneumonia, pneumothorax, COPD, CHF, infections, cardiac ischemia, pulmonary embolism, musculoskeletal, gastrointestinal, as well as other pathologies. ER treatment provided: See below Diagnostics interpreted by me: ECG: EKG was obtained in the emergency department. My interpretation is ventricular paced rhythm at 78 bpm. PVCs were noted. This was compared to a tracing from February 04, 2023. No changes were noted. Cardiac Monitoring: An order was placed for continuous cardiac monitoring. The monitor shows a rate of 87 bpm with sinus rhythm. Laboratory studies: As stated above and show below. Imaging studies: See below. Radiographic imaging was reviewed by myself Consultation(s): I discussed this case with Dr. Jimenez who [facility] ED COURSE: Procedures: none Critical Care: I have personally spent greater than 40 minutes of critical care time in the direct management of this patient. This includes bedside care, interpretation of diagnostic studies, and testing, discussion with consultants, patient, and family members, and other required patient management activities. This 40 minutes is in excess of all separately billable procedures. Past Med/Surg History Medical History (Updated 03/01/23 @ 19:41 by Curtis Waller DO) YEMI (acute kidney injury) CAD (coronary artery disease) Remote [place] 1983 with CABG x 2 (BELLAMY-LAD, SVG-RCA). 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 Follows with [facility] cardiology. Chronic kidney disease (CKD), stage II (mild) Congestive heart failure, NYHA class III Hospitalization 10/2017, 02/2018 for acute on chronic CHF COPD (chronic obstructive pulmonary disease) Elevated troponin Epistaxis History of TIA (transient ischemic attack) OVER 5 YEARS AGO AND NO RESIDUAL EFFECTS Hx of myocardial infarction 1983 AND HAD CABG X2 Hypoxia Ischemic cardiomyopathy S/P BiV pacer (NOT defibfillator) 2012, with generator change 10/2019 at [facility]. Most recent echo showed EF 50% (12/13/19) Mitral valve disorder LOIS (obstructive sleep apnea) Pacemaker Medtronic, generator change 10/05/19 at [facility]. Medtronic. Last interrogation 02/02/20. 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 No significant prosthesis stenosis or regurg on 12/2019 echo. Severe mitral regurgitation with eccentric jet posteriorly directed. Ventricular tachycardia Surgical History Colonoscopy (08/25/12) H/O carotid endarterectomy (~1997) 1997 on right History of coronary artery bypass graft x 2 (~1983) 1983 - FOLLOWS WITH [facility] History of repair of inguinal hernia (11/06/18) Incarcerated right inguinal hernia repair and femoral hernia repair 11/06/18 Dr. Cho Hx of aortic valve replacement (~05/2018) [facility] 05/2018 S/P hernia repair RIGHT INGUINAL HERNIA REPAIR S/P left inguinal hernia repair (04/04/20) Open Sliding indirect Left Inguinal Hernia Repair, Direct weakness,with Mesh Placement, Excision Lipoma of Cord Dr. Morataya 04/04/2020 Status post placement of cardiac pacemaker (~2013) 2013, MEDTRONIC - FOLLOWS WITH [facility] LAST CHECK 05/2018 AND NEXT CHECK WILL BE 10/2018 Status post right knee replacement Stented coronary artery (~2014) 2014 ONE STENT WAS PLACED AND FOLLOWS WITH [facility] Family History Other Heart disease Social History Smoking Status: Never smoker Second Hand Exposure: No; Do You Dip or Chew Tobacco: No; Hx Alcohol Use: No Hx Substance Use: No Preferred Language: Kiswahili Communication Ability: Effective Mortgage Manager Required: Yes Beliefs That Will Affect Care: None Current Living Situation: Alone current occupational status: retired Feels Safe at Home: Yes Assistive Devices: Cane Allergies Allergies Allergy/AdvReac Type Severity Reaction Status Date / Time oxycodone Allergy Severe HALLUCINATI Verified 10/23/21 09:34 ONS TASHA Inhibitors AdvReac Intermediate Cough Verified 10/23/21 09:34 rosuvastatin AdvReac Intermediate CONSTIPATIO Verified 10/23/21 09:34 N niacin AdvReac Mild FLUSHING Verified 10/23/21 09:34 paroxetine AdvReac Mild drowsiness Verified 10/23/21 09:34 Home Meds Home Medications Medication Instructions Recorded Confirmed isosorbide mononitrate 60 mg 60 mg PO HS 02/10/18 03/01/23 tablet,extended release 24 hr pantoprazole 40 mg tablet,delayed 40 mg PO QAM 02/10/18 03/01/23 release loratadine 10 mg tablet 10 mg PO DAILY 12/04/18 03/01/23 atorvastatin 40 mg tablet 40 mg PO DAILY 10/09/20 03/01/23 gabapentin 300 mg capsule 300 mg PO TID 10/09/20 03/01/23 aspirin 81 mg tablet,delayed 81 mg PO DAILY 11/10/20 03/01/23 release glucosamine sulf dipot 3 cap PO BID 11/10/20 03/01/23 chlr,msm,chond 550 mg-C 30 mg-lali 1 mg capsule (Glucosamine Chondroitin) CoQ-10 1 tab PO DAILY 03/01/23 03/01/23 Vitamin D3 1 tab PO DAILY 03/01/23 03/01/23 acetaminophen 500 mg tablet 500 mg PO TID 03/01/23 03/01/23 alendronate 70 mg tablet 70 mg PO .EVERY Friday03/01/23 03/01/23 calcium carbonate 600 mg calcium 600 mg PO QDL 03/01/23 03/01/23 (1,500 mg) tablet (Calcium) diclofenac sodium 1 % topical gel 2 g topical TID 03/01/23 03/01/23 digoxin 125 mcg (0.125 mg) tablet 125 mcg PO DAILY 03/01/23 03/01/23 donepezil 10 mg tablet 10 mg PO HS 03/01/23 03/01/23 finasteride 5 mg tablet 5 mg PO DAILY 03/01/23 03/01/23 fluticasone propionate 50 1 spray intranasal BID 03/01/23 03/01/23 mcg/actuation nasal spray,suspension (Flonase Allergy Relief) furosemide 40 mg tablet 20 mg PO QPM 03/01/23 03/01/23 furosemide 40 mg tablet 40 mg PO QAM 03/01/23 03/01/23 melatonin 3 mg tablet 3 mg PO HS PRN Sleep 03/01/23 03/01/23 metoprolol succinate 100 mg 50 mg PO BID 03/01/23 03/01/23 tablet,extended release 24 hr multivitamin (Daily-Selena tablet) 1 tab PO DAILY 03/01/23 03/01/23 nitroglycerin 0.4 mg sublingual 0.4 mg sublingual .Q 5 MIN PRN 03/01/23 03/01/23 tablet Chest Pain sacubitril 24 mg-valsartan 26 mg 1 tab PO BID 03/01/23 03/01/23 tablet (Entresto) sertraline 25 mg tablet 25 mg PO DAILY 03/01/23 03/01/23 tramadol 50 mg tablet 75 - 125 mg PO Q4 PRN Pain 03/01/23 03/01/23 vit C 250 mg-vit E 90 mg-zinc 40 1 tab PO DAILY 03/01/23 03/01/23 mg-copper 1 [id number] capsule (PreserVision AREDS-2) warfarin 4 mg tablet 4 mg PO DAILY 03/01/23 03/01/23 Previous Rx's Medication Instructions Recorded memantine 10 mg tablet (Namenda) 10 mg PO BID #30 tabs 02/12/22 Results & Data (ED) Vital Signs Vital Signs - 24 hr 03/01/23 13:36 03/01/23 13:42 03/01/23 13:46 Temperature 38.0 C H Temperature Source Oral Pulse Rate 70 80 Pulse Rate [Apical] Pulse Rate from SpO2 Sensor Pulse Rhythm [Apical] Respiratory Rate 22 Respiratory Effort / Characteristics Non-Labored Non-Labored Respiratory Depth Normal Normal Respiratory Pattern Regular Regular Blood Pressure 122/52 L Blood Pressure [Right Arm] Blood Pressure Mean 75 Blood Pressure Mean [Right Arm] Pulse Oximetry 98 Oxygen Delivery Method Nasal Cannula Nasal Cannula Oxygen Flow Rate 4 4 Sepsis Recent Fever Within 48 Hours No Sepsis New/Unexplained Change in Mental Status No Sepsis Action Taken by Nursing No Action Required 03/01/23 13:46 03/01/23 14:10 03/01/23 13:42 Temperature Temperature Source Pulse Rate 76 Pulse Rate [Apical] Pulse Rate from SpO2 Sensor 67 Pulse Rhythm [Apical] Respiratory Rate 26 H Respiratory Effort / Characteristics Respiratory Depth Respiratory Pattern Blood Pressure Blood Pressure [Right Arm] Blood Pressure Mean Blood Pressure Mean [Right Arm] Pulse Oximetry 97 96 Oxygen Delivery Method Nasal Cannula Nasal Cannula Oxygen Flow Rate 2 Sepsis Recent Fever Within 48 Hours Sepsis New/Unexplained Change in Mental Status Sepsis Action Taken by Nursing 03/01/23 13:45 03/01/23 13:45 03/01/23 13:50 Temperature Temperature Source Pulse Rate 73 71 Pulse Rate [Apical] Pulse Rate from SpO2 Sensor 68 70 Pulse Rhythm [Apical] Respiratory Rate 20 21 Respiratory Effort / Characteristics Respiratory Depth Respiratory Pattern Blood Pressure 111/47 L Blood Pressure [Right Arm] Blood Pressure Mean 82 Blood Pressure Mean [Right Arm] Pulse Oximetry 97 97 Oxygen Delivery Method Oxygen Flow Rate Sepsis Recent Fever Within 48 Hours Sepsis New/Unexplained Change in Mental Status Sepsis Action Taken by Nursing 03/01/23 14:00 03/01/23 14:00 03/01/23 14:10 Temperature Temperature Source Pulse Rate 72 70 Pulse Rate [Apical] Pulse Rate from SpO2 Sensor 71 68 Pulse Rhythm [Apical] Respiratory Rate 20 23 Respiratory Effort / Characteristics Respiratory Depth Respiratory Pattern Blood Pressure 112/55 L Blood Pressure [Right Arm] Blood Pressure Mean 96 Blood Pressure Mean [Right Arm] Pulse Oximetry 98 97 Oxygen Delivery Method Oxygen Flow Rate Sepsis Recent Fever Within 48 Hours Sepsis New/Unexplained Change in Mental Status Sepsis Action Taken by Nursing 03/01/23 14:15 03/01/23 14:15 03/01/23 14:20 Temperature Temperature Source Pulse Rate 72 70 Pulse Rate [Apical] Pulse Rate from SpO2 Sensor 70 Pulse Rhythm [Apical] Respiratory Rate 30 H 23 Respiratory Effort / Characteristics Respiratory Depth Respiratory Pattern Blood Pressure 115/56 L Blood Pressure [Right Arm] Blood Pressure Mean 61 Blood Pressure Mean [Right Arm] Pulse Oximetry 96 Oxygen Delivery Method Oxygen Flow Rate Sepsis Recent Fever Within 48 Hours Sepsis New/Unexplained Change in Mental Status Sepsis Action Taken by Nursing 03/01/23 14:30 03/01/23 14:30 03/01/23 14:40 Temperature Temperature Source Pulse Rate 70 70 Pulse Rate [Apical] Pulse Rate from SpO2 Sensor 70 70 Pulse Rhythm [Apical] Respiratory Rate 25 H 20 Respiratory Effort / Characteristics Respiratory Depth Respiratory Pattern Blood Pressure 122/54 L Blood Pressure [Right Arm] Blood Pressure Mean 70 Blood Pressure Mean [Right Arm] Pulse Oximetry 98 97 Oxygen Delivery Method Oxygen Flow Rate Sepsis Recent Fever Within 48 Hours Sepsis New/Unexplained Change in Mental Status Sepsis Action Taken by Nursing 03/01/23 14:45 03/01/23 14:45 03/01/23 14:50 Temperature Temperature Source Pulse Rate 71 72 Pulse Rate [Apical] Pulse Rate from SpO2 Sensor 70 68 Pulse Rhythm [Apical] Respiratory Rate 21 20 Respiratory Effort / Characteristics Respiratory Depth Respiratory Pattern Blood Pressure 111/53 L Blood Pressure [Right Arm] Blood Pressure Mean 74 Blood Pressure Mean [Right Arm] Pulse Oximetry 96 96 Oxygen Delivery Method Oxygen Flow Rate Sepsis Recent Fever Within 48 Hours Sepsis New/Unexplained Change in Mental Status Sepsis Action Taken by Nursing 03/01/23 15:00 03/01/23 15:00 03/01/23 16:00 Temperature Temperature Source Pulse Rate 70 Pulse Rate [Apical] Pulse Rate from SpO2 Sensor 70 Pulse Rhythm [Apical] Respiratory Rate 20 16 Respiratory Effort / Characteristics Non-Labored Respiratory Depth Normal Respiratory Pattern Regular Blood Pressure 113/53 L Blood Pressure [Right Arm] 100/46 L Blood Pressure Mean 83 Blood Pressure Mean [Right Arm] 64 Pulse Oximetry 98 97 Oxygen Delivery Method Nasal Cannula Oxygen Flow Rate Sepsis Recent Fever Within 48 Hours Sepsis New/Unexplained Change in Mental Status Sepsis Action Taken by Nursing 03/01/23 15:10 03/01/23 15:15 03/01/23 15:15 Temperature Temperature Source Pulse Rate 72 72 Pulse Rate [Apical] Pulse Rate from SpO2 Sensor 70 69 Pulse Rhythm [Apical] Respiratory Rate 19 20 Respiratory Effort / Characteristics Respiratory Depth Respiratory Pattern Blood Pressure 105/54 L Blood Pressure [Right Arm] Blood Pressure Mean 74 Blood Pressure Mean [Right Arm] Pulse Oximetry 97 97 Oxygen Delivery Method Oxygen Flow Rate Sepsis Recent Fever Within 48 Hours Sepsis New/Unexplained Change in Mental Status Sepsis Action Taken by Nursing 03/01/23 15:20 03/01/23 15:30 03/01/23 15:30 Temperature Temperature Source Pulse Rate 79 72 Pulse Rate [Apical] Pulse Rate from SpO2 Sensor 75 72 Pulse Rhythm [Apical] Respiratory Rate 22 17 Respiratory Effort / Characteristics Respiratory Depth Respiratory Pattern Blood Pressure 117/52 L Blood Pressure [Right Arm] Blood Pressure Mean 77 Blood Pressure Mean [Right Arm] Pulse Oximetry 97 97 Oxygen Delivery Method Oxygen Flow Rate Sepsis Recent Fever Within 48 Hours Sepsis New/Unexplained Change in Mental Status Sepsis Action Taken by Nursing 03/01/23 15:40 03/01/23 15:45 03/01/23 15:45 Temperature Temperature Source Pulse Rate 72 72 Pulse Rate [Apical] Pulse Rate from SpO2 Sensor 69 70 Pulse Rhythm [Apical] Respiratory Rate 24 23 Respiratory Effort / Characteristics Respiratory Depth Respiratory Pattern Blood Pressure 116/54 L Blood Pressure [Right Arm] Blood Pressure Mean 81 Blood Pressure Mean [Right Arm] Pulse Oximetry 97 97 Oxygen Delivery Method Oxygen Flow Rate Sepsis Recent Fever Within 48 Hours Sepsis New/Unexplained Change in Mental Status Sepsis Action Taken by Nursing 03/01/23 15:50 03/01/23 16:00 03/01/23 16:00 Temperature Temperature Source Pulse Rate 78 74 Pulse Rate [Apical] Pulse Rate from SpO2 Sensor 71 71 Pulse Rhythm [Apical] Respiratory Rate 22 17 Respiratory Effort / Characteristics Respiratory Depth Respiratory Pattern Blood Pressure 100/46 L Blood Pressure [Right Arm] Blood Pressure Mean 58 Blood Pressure Mean [Right Arm] Pulse Oximetry 97 97 Oxygen Delivery Method Oxygen Flow Rate Sepsis Recent Fever Within 48 Hours Sepsis New/Unexplained Change in Mental Status Sepsis Action Taken by Nursing 03/01/23 16:10 03/01/23 16:15 03/01/23 16:15 Temperature Temperature Source Pulse Rate 74 70 Pulse Rate [Apical] Pulse Rate from SpO2 Sensor 67 70 Pulse Rhythm [Apical] Respiratory Rate 18 19 Respiratory Effort / Characteristics Respiratory Depth Respiratory Pattern Blood Pressure 129/66 Blood Pressure [Right Arm] Blood Pressure Mean 93 Blood Pressure Mean [Right Arm] Pulse Oximetry 94 97 Oxygen Delivery Method Oxygen Flow Rate Sepsis Recent Fever Within 48 Hours Sepsis New/Unexplained Change in Mental Status Sepsis Action Taken by Nursing 03/01/23 16:20 03/01/23 16:30 03/01/23 16:30 Temperature Temperature Source Pulse Rate 70 75 Pulse Rate [Apical] Pulse Rate from SpO2 Sensor 70 71 Pulse Rhythm [Apical] Respiratory Rate 23 17 Respiratory Effort / Characteristics Respiratory Depth Respiratory Pattern Blood Pressure 124/66 Blood Pressure [Right Arm] Blood Pressure Mean 95 Blood Pressure Mean [Right Arm] Pulse Oximetry 97 98 Oxygen Delivery Method Oxygen Flow Rate Sepsis Recent Fever Within 48 Hours Sepsis New/Unexplained Change in Mental Status Sepsis Action Taken by Nursing 03/01/23 17:43 03/01/23 17:53 03/01/23 19:31 Temperature Temperature Source Pulse Rate 70 Pulse Rate [Apical] 70 72 Pulse Rate from SpO2 Sensor Pulse Rhythm [Apical] Regular Respiratory Rate 19 22 Respiratory Effort / Characteristics Non-Labored Respiratory Depth Normal Respiratory Pattern Regular Blood Pressure Blood Pressure [Right Arm] 110/61 129/73 Blood Pressure Mean Blood Pressure Mean [Right Arm] 77 91 Pulse Oximetry 98 96 Oxygen Delivery Method Nasal Cannula Nasal Cannula Oxygen Flow Rate 2 Sepsis Recent Fever Within 48 Hours Sepsis New/Unexplained Change in Mental Status Sepsis Action Taken by [facility] Medications Current Medication List: was personally reviewed by me Laboratory Data Attestation: I reviewed the patient's lab results. 03/01/23 13:40 03/01/23 13:40 Lab Results 03/01/23 03/01/23 03/01/23 Range/Units 13:40 13:40 13:40 WBC 6.63 (4.8-10.8) K/ul RBC 3.94 L (4.70-6.10) M/uL Hgb 13.3 L (14.0-18.0) g/dl Hct 39.8 L (42.0-52.0) % MCV 101.0 H (80.0-100.0) fL MCH 33.8 (25.0-34.0) pg MCHC 33.4 (32.0-36.0) g/dL RDW Std Deviation 51.8 H (36.4-46.3) fL RDW Coeff of Sawyer 13.7 (11.5-14.5) % Plt Count 148 (130-400) K/uL MPV 9.9 (9.4-12.4) fL Immature Gran % (Auto) 0.3 % Neut % (Auto) 71.7 % Lymph % (Auto) 13.6 % [place] % (Auto) 11.5 % Eos % (Auto) 2.6 % Baso % (Auto) 0.3 % Neut # (Auto) 4.76 (1.40-6.50) K/uL Lymph # (Auto) 0.90 L (1.20-3.40) K/uL [place] # (Auto) 0.76 H (0.11-0.59) K/uL Eos # (Auto) 0.17 (0.00-0.50) K/uL Baso # (Auto) 0.02 (0.00-0.20) K/uL Immature Gran # (Auto) 0.02 (0.01-0.20) K/uL PT 18.4 H (9.0-12.0) Seconds INR 1.7 H (0.9-1.1) APTT 29.6 (21.0-31.0) Seconds PTT Ratio 1.0 VBG pH (7.36-7.41) VBG pCO2 (38-50) mmHg VBG pO2 mmHg VBG HCO3 mmol/L VBG O2 Saturation % VBG Base Excess mEq/L Sodium 141 (136-145) mmol/L Potassium 4.6 (3.5-5.1) mmol/L Chloride 107 (98-107) mmol/L Carbon Dioxide 26 (21-32) mmol/L Anion Gap 8 (3-11) BUN 32 H (6-23) mg/dl Creatinine 1.51 H (0.6-1.4) mg/dl Est Cr Clr Drug Dosing 32.8 ml/min Est GFR ( Amer) 47.4 ml/min Est GFR (Non-Af Amer) 40.9 ml/min BUN/Creatinine Ratio 21.2 H (10-20) Glucose 97 (70-99(Fasting)) mg/dl Lactate (0.4-2.0) mmol/L Calcium 9.0 (8.6-10.3) mg/dl Magnesium 1.9 (1.7-2.4) mg/dl Total Bilirubin 0.8 (0.2-1.0) mg/dl Direct Bilirubin 0.3 H (0-0.2) mg/dl AST 30 (13-39) U/L ALT 16 (7-52) U/L Alkaline Phosphatase 41 (34-104) U/L Troponin I High Sens 34.2 H (0-20) pg/ml C-Reactive Protein 5.89 H (0-0.5) mg/dl B-Natriuretic Peptide (0-100) pg/ml Total Protein 8.0 (6.0-8.3) gm/dl Albumin 4.0 (3.4-5.0) gm/dl Procalcitonin (0-0.5) ng/ml Adenovirus (PCR) (NotDetected) B. pertussis DNA (PCR) (NotDetected) B.parapertussis DNA PCR (NotDetected) C. pneumoniae DNA (PCR) (NotDetected) Coronavirus OC43 (PCR) (NotDetected) Coronavirus HKU1 (PCR) (NotDetected) Coronavirus 229E (PCR) (NotDetected) SARS-CoV-2 (PCR) (NotDetected) Coronavirus NL63 (PCR) (NotDetected) Human Metapneumovir PCR (NotDetected) Influenza Type A (PCR) (NotDetected) Influenza Type B (PCR) (NotDetected) M. pneumoniae (PCR) (NotDetected) Parainfluenza 1 (PCR) (NotDetected) Parainfluenza 2 (PCR) (NotDetected) Parainfluenza 3 (PCR) (NotDetected) Parainfluenza 4 (PCR) (NotDetected) RSV (PCR) (NotDetected) Entero/Rhino (PCR) (NotDetected) 03/01/23 03/01/23 03/01/23 Range/Units 13:40 14:22 14:41 WBC (4.8-10.8) K/ul RBC (4.70-6.10) M/uL Hgb (14.0-18.0) g/dl Hct (42.0-52.0) % MCV (80.0-100.0) fL MCH (25.0-34.0) pg MCHC (32.0-36.0) g/dL RDW Std Deviation (36.4-46.3) fL RDW Coeff of Sawyer (11.5-14.5) % Plt Count (130-400) K/uL MPV (9.4-12.4) fL Immature Gran % (Auto) % Neut % (Auto) % Lymph % (Auto) % [place] % (Auto) % Eos % (Auto) % Baso % (Auto) % Neut # (Auto) (1.40-6.50) K/uL Lymph # (Auto) (1.20-3.40) K/uL [place] # (Auto) (0.11-0.59) K/uL Eos # (Auto) (0.00-0.50) K/uL Baso # (Auto) (0.00-0.20) K/uL Immature Gran # (Auto) (0.01-0.20) K/uL PT (9.0-12.0) Seconds INR (0.9-1.1) APTT (21.0-31.0) Seconds PTT Ratio VBG pH (7.36-7.41) VBG pCO2 (38-50) mmHg VBG pO2 mmHg VBG HCO3 mmol/L VBG O2 Saturation % VBG Base Excess mEq/L Sodium (136-145) mmol/L Potassium (3.5-5.1) mmol/L Chloride (98-107) mmol/L Carbon Dioxide (21-32) mmol/L Anion Gap (3-11) BUN (6-23) mg/dl Creatinine (0.6-1.4) mg/dl Est Cr Clr Drug Dosing ml/min Est GFR ( Amer) ml/min Est GFR (Non-Af Amer) ml/min BUN/Creatinine Ratio (10-20) Glucose (70-99(Fasting)) mg/dl Lactate 2.3 H* (0.4-2.0) mmol/L Calcium (8.6-10.3) mg/dl Magnesium (1.7-2.4) mg/dl Total Bilirubin (0.2-1.0) mg/dl Direct Bilirubin (0-0.2) mg/dl AST (13-39) U/L ALT (7-52) U/L Alkaline Phosphatase (34-104) U/L Troponin I High Sens (0-20) pg/ml C-Reactive Protein (0-0.5) mg/dl B-Natriuretic Peptide (0-100) pg/ml Total Protein (6.0-8.3) gm/dl Albumin (3.4-5.0) gm/dl Procalcitonin < 0.05 (0-0.5) ng/ml Adenovirus (PCR) Not Detected (NotDetected) B. pertussis DNA (PCR) Not Detected (NotDetected) B.parapertussis DNA PCR Not Detected (NotDetected) C. pneumoniae DNA (PCR) Not Detected (NotDetected) Coronavirus OC43 (PCR) Not Detected (NotDetected) Coronavirus HKU1 (PCR) Not Detected (NotDetected) Coronavirus 229E (PCR) Not Detected (NotDetected) SARS-CoV-2 (PCR) DETECTED A* (NotDetected) Coronavirus NL63 (PCR) Not Detected (NotDetected) Human Metapneumovir PCR Not Detected (NotDetected) Influenza Type A (PCR) Not Detected (NotDetected) Influenza Type B (PCR) Not Detected (NotDetected) M. pneumoniae (PCR) Not Detected (NotDetected) Parainfluenza 1 (PCR) Not Detected (NotDetected) Parainfluenza 2 (PCR) Not Detected (NotDetected) Parainfluenza 3 (PCR) Not Detected (NotDetected) Parainfluenza 4 (PCR) Not Detected (NotDetected) RSV (PCR) Not Detected (NotDetected) Entero/Rhino (PCR) Not Detected (NotDetected) 03/01/23 03/01/23 03/01/23 Range/Units 14:41 15:29 16:45 WBC (4.8-10.8) K/ul RBC (4.70-6.10) M/uL Hgb (14.0-18.0) g/dl Hct (42.0-52.0) % MCV (80.0-100.0) fL MCH (25.0-34.0) pg MCHC (32.0-36.0) g/dL RDW Std Deviation (36.4-46.3) fL RDW Coeff of Sawyer (11.5-14.5) % Plt Count (130-400) K/uL MPV (9.4-12.4) fL Immature Gran % (Auto) % Neut % (Auto) % Lymph % (Auto) % [place] % (Auto) % Eos % (Auto) % Baso % (Auto) % Neut # (Auto) (1.40-6.50) K/uL Lymph # (Auto) (1.20-3.40) K/uL [place] # (Auto) (0.11-0.59) K/uL Eos # (Auto) (0.00-0.50) K/uL Baso # (Auto) (0.00-0.20) K/uL Immature Gran # (Auto) (0.01-0.20) K/uL PT (9.0-12.0) Seconds INR (0.9-1.1) APTT (21.0-31.0) Seconds PTT Ratio VBG pH 7.41 (7.36-7.41) VBG pCO2 43 (38-50) mmHg VBG pO2 50 mmHg VBG HCO3 27 mmol/L VBG O2 Saturation 80.5 % VBG Base Excess 2.2 mEq/L Sodium (136-145) mmol/L Potassium (3.5-5.1) mmol/L Chloride (98-107) mmol/L Carbon Dioxide (21-32) mmol/L Anion Gap (3-11) BUN (6-23) mg/dl Creatinine (0.6-1.4) mg/dl Est Cr Clr Drug Dosing ml/min Est GFR ( Amer) ml/min Est GFR (Non-Af Amer) ml/min BUN/Creatinine Ratio (10-20) Glucose (70-99(Fasting)) mg/dl Lactate 2.8 H* (0.4-2.0) mmol/L Calcium (8.6-10.3) mg/dl Magnesium (1.7-2.4) mg/dl Total Bilirubin (0.2-1.0) mg/dl Direct Bilirubin (0-0.2) mg/dl AST (13-39) U/L ALT (7-52) U/L Alkaline Phosphatase (34-104) U/L Troponin I High Sens 45.2 H D (0-20) pg/ml C-Reactive Protein (0-0.5) mg/dl B-Natriuretic Peptide (0-100) pg/ml Total Protein (6.0-8.3) gm/dl Albumin (3.4-5.0) gm/dl Procalcitonin (0-0.5) ng/ml Adenovirus (PCR) (NotDetected) B. pertussis DNA (PCR) (NotDetected) B.parapertussis DNA PCR (NotDetected) C. pneumoniae DNA (PCR) (NotDetected) Coronavirus OC43 (PCR) (NotDetected) Coronavirus HKU1 (PCR) (NotDetected) Coronavirus 229E (PCR) (NotDetected) SARS-CoV-2 (PCR) (NotDetected) Coronavirus NL63 (PCR) (NotDetected) Human Metapneumovir PCR (NotDetected) Influenza Type A (PCR) (NotDetected) Influenza Type B (PCR) (NotDetected) M. pneumoniae (PCR) (NotDetected) Parainfluenza 1 (PCR) (NotDetected) Parainfluenza 2 (PCR) (NotDetected) Parainfluenza 3 (PCR) (NotDetected) Parainfluenza 4 (PCR) (NotDetected) RSV (PCR) (NotDetected) Entero/Rhino (PCR) (NotDetected) 03/01/23 03/01/23 Range/Units 18:37 18:37 WBC (4.8-10.8) K/ul RBC (4.70-6.10) M/uL Hgb (14.0-18.0) g/dl Hct (42.0-52.0) % MCV (80.0-100.0) fL MCH (25.0-34.0) pg MCHC (32.0-36.0) g/dL RDW Std Deviation (36.4-46.3) fL RDW Coeff of [place]yer (11.5-14.5) % Plt Count (130-400) K/uL MPV (9.4-12.4) fL Immature Gran % (Auto) % Neut % (Auto) % Lymph % (Auto) % [place] % (Auto) % Eos % (Auto) % Baso % (Auto) % Neut # (Auto) (1.40-6.50) K/uL Lymph # (Auto) (1.20-3.40) K/uL [place] # (Auto) (0.11-0.59) K/uL Eos # (Auto) (0.00-0.50) K/uL Baso # (Auto) (0.00-0.20) K/uL Immature Gran # (Auto) (0.01-0.20) K/uL PT (9.0-12.0) Seconds INR (0.9-1.1) APTT (21.0-31.0) Seconds PTT Ratio VBG pH (7.36-7.41) VBG pCO2 (38-50) mmHg VBG pO2 mmHg VBG HCO3 mmol/L VBG O2 Saturation % VBG Base Excess mEq/L Sodium (136-145) mmol/L Potassium (3.5-5.1) mmol/L Chloride (98-107) mmol/L Carbon Dioxide (21-32) mmol/L Anion Gap (3-11) BUN (6-23) mg/dl Creatinine (0.6-1.4) mg/dl Est Cr Clr Drug Dosing ml/min Est GFR ( Amer) ml/min Est GFR (Non-Af Amer) ml/min BUN/Creatinine Ratio (10-20) Glucose (70-99(Fasting)) mg/dl Lactate 2.0 (0.4-2.0) mmol/L Calcium (8.6-10.3) mg/dl Magnesium (1.7-2.4) mg/dl Total Bilirubin (0.2-1.0) mg/dl Direct Bilirubin (0-0.2) mg/dl AST (13-39) U/L ALT (7-52) U/L Alkaline Phosphatase (34-104) U/L Troponin I High Sens (0-20) pg/ml C-Reactive Protein (0-0.5) mg/dl B-Natriuretic Peptide 688 H (0-100) pg/ml Total Protein (6.0-8.3) gm/dl Albumin (3.4-5.0) gm/dl Procalcitonin (0-0.5) ng/ml Adenovirus (PCR) (NotDetected) B. pertussis DNA (PCR) (NotDetected) B.parapertussis DNA PCR (NotDetected) C. pneumoniae DNA (PCR) (NotDetected) Coronavirus OC43 (PCR) (NotDetected) Coronavirus HKU1 (PCR) (NotDetected) Coronavirus 229E (PCR) (NotDetected) SARS-CoV-2 (PCR) (NotDetected) Coronavirus NL63 (PCR) (NotDetected) Human Metapneumovir PCR (NotDetected) Influenza Type A (PCR) (NotDetected) Influenza Type B (PCR) (NotDetected) M. pneumoniae (PCR) (NotDetected) Parainfluenza 1 (PCR) (NotDetected) Parainfluenza 2 (PCR) (NotDetected) Parainfluenza 3 (PCR) (NotDetected) Parainfluenza 4 (PCR) (NotDetected) RSV (PCR) (NotDetected) Entero/Rhino (PCR) (NotDetected) Administered Medications Remdesivir 200 mg/ Sodium (Chloride) 250 mls @ 125 mls/hr IV 1745 ONE; Protocol Stop: 03/01/23 19:44 Last Admin: 03/01/23 18:39 Dose: 125 mls/hr Documented By: CHRISTINE Discontinued Medications Acetaminophen (Acetaminophen 325 Mg Tab) 650 mg PO NOW STA Stop: 03/01/23 14:08 Last Admin: 03/01/23 14:17 Dose: 650 mg Documented By: ESTEFANÍA Dexamethasone Sodium Phosphate (DexamethasonePf 10 Mg/Ml Vial) 10 mg IV NOW ONE Stop: 03/01/23 14:06 Last Admin: 03/01/23 14:17 Dose: 10 mg Documented By: ESTEFANÍA Sodium Chloride (Nss) 500 mls @ 999 mls/hr IV .Q31M ONE Stop: 03/01/23 16:06 Last Infusion: 03/01/23 16:39 Dose: 0 mls/hr Documented By: Admin: 03/01/23 15:58 Dose: 999 mls/hr Documented By: CHRISTINE Parenteral Electrolytes (Plasma-Lyte A Ph 7.4) 250 mls @ 999 mls/hr IV .Q16M ONE Stop: 03/01/23 17:35 Last Infusion: 03/01/23 18:46 Dose: 0 mls/hr Documented By: Admin: 03/01/23 17:51 Dose: 999 mls/hr Documented By: CHRISTINE Imaging Data Attestation: I personally reviewed and interpreted this imaging study as follows: My Impression: 1 view chest x-ray was obtained in the emergency department. My interpretation is prominence of the interstitium, no free air, final report below. Radiologist's Impression: Chest X-Ray 03/01/23 13:56 XR chest 1V portable HISTORY: 87 years-old Male Sepsis acute sepsis COMPARISON: 11/10/2020 TECHNIQUE: AP view of the chest FINDINGS: Cardiac silhouette is enlarged. Sternotomy wires with cardiac valvular prosthesis. Left subclavian pacer. No pneumothorax, pleural effusion or lobar airspace consolidation. Pulmonary vascular congestion with chronic interstitial coarsening. IMPRESSION: 1. Cardiomegaly with pulmonary vascular congestion. 2. Chronic interstitial coarsening. ACT 112: Negative or not required by law. The above report was generated using voice recognition software. It may contain grammatical, syntax or spelling errors. Electronically signed by: Luke Kaur M.D. 03/01/2023 2:26 PM Discharge Plan Visit Data Chief Complaint: Shortness of Breath/Dyspnea Stated Complaint: WEAKNESS, COVID + ED Provider: Curtis Waller Discharge Problem: Pneumonia due to severe acute respiratory syndrome coronavirus 2 (SARS-CoV-2), Hypoxia, Acute respiratory distress Patient Disposition: Being Evaluated by Hospitalist Forms Stand Alone Forms: My [facility] Prescriptions Prescriptions: No Action loratadine 10 mg tablet 10 mg PO DAILY isosorbide mononitrate 60 mg Tablet Extended Release 24 Hr 60 mg PO HS pantoprazole 40 mg Tablet,Delayed Release (Dr/Ec) 40 mg PO QAM atorvastatin 40 mg tablet 40 mg PO DAILY gabapentin 300 mg capsule 300 mg PO TID Rx Instructions: Morning, Mid day, and bed time. aspirin 81 mg Tablet,Delayed Release (Dr/Ec) 81 mg PO DAILY Glucosamine Chondroitin 550-30-1 mg Capsule 3 cap PO BID multivitamin [Daily-Selena] Tablet 1 tab PO DAILY warfarin 4 mg tablet 4 mg PO DAILY PreserVision AREDS-2 250-90-40-1 mg Capsule 1 tab PO DAILY CoQ-10 1 tab PO DAILY Vitamin D3 1 tab PO DAILY donepezil 10 mg tablet 10 mg PO HS alendronate 70 mg tablet 70 mg PO .EVERY FRIDAY digoxin 125 mcg (0.125 mg) tablet 125 mcg PO DAILY furosemide 40 mg tablet 40 mg PO QAM furosemide 40 mg tablet 20 mg PO QPM tramadol 50 mg tablet 75 - 125 mg PO Q4 PRN (Reason: Pain) finasteride 5 mg tablet 5 mg PO DAILY melatonin 3 mg Tablet 3 mg PO HS PRN (Reason: Sleep) metoprolol succinate 100 mg tablet extended release 24 hr 50 mg PO BID diclofenac sodium 1 % Gel 2 g TOPICAL TID Rx Instructions: apply to affected area 0600,[id number],1999 Entresto 24-26 mg tablet 1 tab PO BID Rx Instructions: hold for BP<90 acetaminophen 500 mg Tablet 500 mg PO TID Rx Instructions: 0600,1400,1999 sertraline 25 mg tablet 25 mg PO DAILY nitroglycerin 0.4 mg Tablet, Sublingual 0.4 mg sublingual .Q 5 MIN PRN (Reason: Chest Pain) Rx Instructions: take 1 tablet under tongue every 5 min's as needed for chest pain x 3 doses, if no relief call 911 calcium carbonate [Calcium 600] 600 mg calcium (1,500 mg) Tablet 600 mg PO QDL fluticasone propionate [Flonase Allergy Relief] 50 mcg/actuation Kinzers,Suspension 1 spray INTRANASAL BID Rx Instructions: administer into each nostril memantine [Namenda] 10 mg Tablet 10 mg PO BID Qty: 30 1RF Referrals Referrals: [facility] [employer], [facility] [Primary Care Provider] -
[2023-03-01 14:16] LABS: Basophils # (auto) 0.02 K/uL (0.00-0.20); Basophils % (auto) 0.3 %; Eosinophils # (auto) 0.17 K/uL (0.00-0.50); Eosinophils % (auto) 2.6 %; Hematocrit (blood only) 39.8 % (42.0-52.0); Hemoglobin 13.3 g/dl (14.0-18.0); Immature Granulocytes # (auto) 0.02 K/uL (0.01-0.20); Immature Granulocytes % (auto) 0.3 %; Lymphocytes % (auto) 13.6 %; Mean Corpuscular Hemoglobin 33.8 pg (25.0-34.0); Mean Corpuscular Hgb Conc 33.4 g/dL (32.0-36.0); Mean Platelet Volume 9.9 fL (9.4-12.4); Monocytes # (auto) 0.76 K/uL (0.11-0.59); Monocytes % (auto) 11.5 %; Neutrophils # (auto) 4.76 K/uL (1.40-6.50); Neutrophils % (auto) 71.7 %; Platelet Count 148 K/uL (130-400); RDW Coefficient of Variation 13.7 % (11.5-14.5); RDW Standard Deviation 51.8 fL (36.4-46.3); Red Blood Count 3.94 M/uL (4.70-6.10); White Blood Count 6.63 K/ul (4.8-10.8)
--- NOTE | 2023-03-01 14:29 | XRay Report ---
XR chest 1V portable HISTORY: 87 years-old Male Sepsis acute sepsis COMPARISON: 11/10/2020 TECHNIQUE: AP view of the chest FINDINGS: Cardiac silhouette is enlarged. Sternotomy wires with cardiac valvular prosthesis. Left subclavian pa cer. No pneumothorax, pleural effusion or lobar airspace consolidation. Pulmonary vascular congestion with chronic interstitial coarsening. IMPRESSION: 1. Cardiomegaly with pulmonary vascular congestion. 2. Chronic interstitial coarsening. ACT 112: Negative or not required by law. The above report was generated using voice recognition software. It may contain grammatical, syntax o r spelling errors. Electronically signed by: Luke Kaur M.D. 03/01/2023 2:26 PM
[2023-03-01 14:46] LABS: BUN Creatinine Ratio 21.2 (10-20); Bilirubin,Total 0.8 mg/dl (0.2-1.0); C Reactive Protein 5.89 mg/dl (0-0.5); Creatinine Clr Calc Pharmacy 32.8 ml/min; Est GFR (African American) 47.4 ml/min; Est GFR (Non-African American) 40.9 ml/min; Magnesium 1.9 mg/dl (1.7-2.4); Potassium 4.6 mmol/L (3.5-5.1); Troponin I High Sensitivity 34.2 pg/ml (0-20)
[2023-03-01 14:51] LABS: Base Excess VBG 2.2 mEq/L; HCO3 VBG 27 mmol/L; Oxygen Saturation VBG 80.5 %; PCO2 VBG 43 mmHg (38-50); PO2 VBG 50 mmHg; pH VBG 7.41 (7.36-7.41)
[2023-03-01 14:55] LABS: Bilirubin Direct 0.3 mg/dl (0-0.2)
[2023-03-01 14:58] LABS: INR 1.7 (0.9-1.1); Partial Thromboplastin Time 29.6 Seconds (21.0-31.0); Prothrombin Time 18.4 Seconds (9.0-12.0)
[2023-03-01 15:19] LABS: Adenovirus PCR Not Detected (NotDetected); Bordetella parapertussis PCR Not Detected (NotDetected); Bordetella pertussis PCR Not Detected (NotDetected); Chlamydia pneumoniae PCR Not Detected (NotDetected); Coronavirus 229E PCR Not Detected (NotDetected); Coronavirus HKU1 PCR Not Detected (NotDetected); Coronavirus NL63 PCR Not Detected (NotDetected); Coronavirus OC43PCR Not Detected (NotDetected); Human Metapneumovirus PCR Not Detected (NotDetected); Influenza A PCR Not Detected (NotDetected); Influenza B PCR Not Detected (NotDetected); Mycoplasma pneumoniae PCR Not Detected (NotDetected); Parainfluenza Virus 1 PCR Not Detected (NotDetected); Parainfluenza Virus 2 PCR Not Detected (NotDetected); Parainfluenza Virus 3 PCR Not Detected (NotDetected); Parainfluenza Virus 4 PCR Not Detected (NotDetected); Respiratory Syncytial VirusPCR Not Detected (NotDetected); Rhinovirus/Enterovirus PCR Not Detected (NotDetected)
[2023-03-01 15:22] LABS: Coronavirus CoV-2 (COVID19)PCR DETECTED (NotDetected)
[2023-03-01] MEDS ORDERED: SODIUM CHLORIDE 0.9% 500 ML IV ONE (15:36)
--- NOTE | 2023-03-01 16:03 | History & Physical Report ---
Date of Service March 01, 2023 Assessment & Plan (1) COVID: Plan: + on arrival Clinically, patient endorses worsening fatigue x2 days Hx of dementia Procalcitonin WNL Lactate 2.3 --> 2.8; continue to trend Continuous telemetry monitoring Continuous pulse oximetry Isolation precautions Fall precautions Urine culture pending Blood culture pending Supplemental oxygen as needed with a target SPO2 goal of 88-92% Remdesivir started in the ED; CrCl 32.8; trend BMP daily and d/c if CrCl <30 Dexamethasone 6mg IV QAM A.m. CBC, BMP, PT/INR (2) Atrial fibrillation: Plan: Rate control Continue warfarin, metoprolol, digoxin Daily PT/INR (3) Chronic systolic heart failure: Plan: BNP pending Hold Entresto in the setting of CKD Continue Lasix 40 mg p.o. every morning and 20 mg p.o. every afternoon Monitor daily weights (4) Elevated troponin: Plan: Troponin 34.2 --> 45.2 on arrival EKG showed ventricular paced rhythm at 78bpm Clinically, patient denies chest pain Continue to trend every 6 hours x 3 (5) Hypotension: Plan: Patient became hypotensive in the ED at 100/46 Received Plasma-Lyte Continue home antihypertensives, but caution for rebound hypotension (6) Dementia: Plan: Continue Aricept and Namenda Frequent orientation PT/OT consulted (7) BPH (benign prostatic hyperplasia): Plan: Continue finasteride Continue to monitor urine output (8) Arthritis: Plan: Continue acetaminophen and gabapentin (9) Hyperlipidemia: Plan: Continue atorvastatin (10) LOIS (obstructive sleep apnea): Plan: CPAP/BiPAP at bedtime Plan Admit to MedSur telemetry DNR/DNI AHA diet VTE PPx: Coumadin/ASA History of Present Illness Chief Complaint: Shortness of breath/dyspnea Primary Care Provider: [facility] Jeffrey Renee is an 87-year-old male with PMH of dementia, A-fib, COPD, CKD, CAD, CHF, TIAs, CO, hypoxia, permanent pacemaker, and pulmonary fibrosis. He presented from [facility] for worsening fatigue x2 day, and 85% SPO2 on RA this morning. He tested positive for COVID on arrival. Per daughter (Xochitl), the patient is vaccinated for COVID + 1 booster in Fall 2021. , but can not remember when he got it. Patient is a poor historian at baseline due to underlying dementia. He reports he does not know how he got to the hospital. Denies any recent sick contacts. He reports he thinks he took his medicine this morning, but does not know what he takes. Former tobacco cigarette smoker, but quit 40 years ago. Patient is febrile at 38.0 C and hypotensive at 100/46 at time of admission. ED course: IVF, acetaminophen 650 mg, Decadron 10 mg IV ROS: Patient endorses fatigue, chronic cough. Patient denies fever, chill, sweats, dizziness, lightheadedness, BOOTH, confusion, brain fog, hemoptysis, CP, pleuritic CP, SOB, abd pain, N/V/D, urinary s/s, burning with urination, numbness or tingling in legs. Spoke on the phone with patient's daughter (Xochitl) who provided some additional history and confirmed code status. Daughter confirmed that the patient has chronic cough at baseline. Allergies Allergy/AdvReac Type Severity Reaction Status Date / Time oxycodone Allergy Severe HALLUCINATI Verified 10/23/21 09:34 ONS TASHA Inhibitors AdvReac Intermediate Cough Verified 10/23/21 09:34 rosuvastatin AdvReac Intermediate CONSTIPATIO Verified 10/23/21 09:34 N niacin AdvReac Mild FLUSHING Verified 10/23/21 09:34 paroxetine AdvReac Mild drowsiness Verified 10/23/21 09:34 Home Medications Medication Instructions Recorded Confirmed Type isosorbide mononitrate 60 mg 60 mg PO HS 02/10/18 03/01/23 History tablet,extended release 24 hr pantoprazole 40 mg tablet,delayed 40 mg PO QAM 02/10/18 03/01/23 History release loratadine 10 mg tablet 10 mg PO DAILY 12/04/18 03/01/23 History atorvastatin 40 mg tablet 40 mg PO DAILY 10/09/20 03/01/23 History gabapentin 300 mg capsule 300 mg PO TID 10/09/20 03/01/23 History aspirin 81 mg tablet,delayed 81 mg PO DAILY 11/10/20 03/01/23 History release glucosamine sulf dipot 3 cap PO BID 11/10/20 03/01/23 History chlr,msm,chond 550 mg-C 30 mg-lali 1 mg capsule (Glucosamine Chondroitin) memantine 10 mg tablet (Namenda) 10 mg PO BID #30 tabs 02/12/22 03/01/23 Rx CoQ-10 1 tab PO DAILY 03/01/23 03/01/23 History Vitamin D3 1 tab PO DAILY 03/01/23 03/01/23 History acetaminophen 500 mg tablet 500 mg PO TID 03/01/23 03/01/23 History alendronate 70 mg tablet 70 mg PO .EVERY Friday03/01/23 03/01/23 History calcium carbonate 600 mg calcium 600 mg PO QDL 03/01/23 03/01/23 History (1,500 mg) tablet (Calcium) diclofenac sodium 1 % topical gel 2 g topical TID 03/01/23 03/01/23 History digoxin 125 mcg (0.125 mg) tablet 125 mcg PO DAILY 03/01/23 03/01/23 History donepezil 10 mg tablet 10 mg PO HS 03/01/23 03/01/23 History finasteride 5 mg tablet 5 mg PO DAILY 03/01/23 03/01/23 History fluticasone propionate 50 1 spray intranasal BID 03/01/23 03/01/23 History mcg/actuation nasal spray,suspension (Flonase Allergy Relief) furosemide 40 mg tablet 20 mg PO QPM 03/01/23 03/01/23 History furosemide 40 mg tablet 40 mg PO QAM 03/01/23 03/01/23 History melatonin 3 mg tablet 3 mg PO HS PRN Sleep 03/01/23 03/01/23 History metoprolol succinate 100 mg 50 mg PO BID 03/01/23 03/01/23 History tablet,extended release 24 hr multivitamin (Daily-Selena tablet) 1 tab PO DAILY 03/01/23 03/01/23 History nitroglycerin 0.4 mg sublingual 0.4 mg sublingual .Q 5 MIN PRN 03/01/23 03/01/23 History tablet Chest Pain sacubitril 24 mg-valsartan 26 mg 1 tab PO BID 03/01/23 03/01/23 History tablet (Entresto) sertraline 25 mg tablet 25 mg PO DAILY 03/01/23 03/01/23 History tramadol 50 mg tablet 75 - 125 mg PO Q4 PRN Pain 03/01/23 03/01/23 History vit C 250 mg-vit E 90 mg-zinc 40 1 tab PO DAILY 03/01/23 03/01/23 History mg-copper 1 if-hfftee-vtymef capsule (PreserVision AREDS-2) warfarin 4 mg tablet 4 mg PO DAILY 03/01/23 03/01/23 History Past Med/Surg History Medical History (Updated 03/01/23 @ 19:41 by Curtis Waller DO) YEMI (acute kidney injury) CAD (coronary artery disease) Remote CO 1983 with CABG x 2 (BELLAMY-LAD, SVG-RCA). 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 Follows with [facility] cardiology. Chronic kidney disease (CKD), stage II (mild) Congestive heart failure, NYHA class III Hospitalization 10/2017, 02/2018 for acute on chronic CHF COPD (chronic obstructive pulmonary disease) Elevated troponin Epistaxis History of TIA (transient ischemic attack) OVER 5 YEARS AGO AND NO RESIDUAL EFFECTS Hx of myocardial infarction 1983 AND HAD CABG X2 Hypoxia Ischemic cardiomyopathy S/P BiV pacer (NOT defibfillator) 2012, with generator change 10/2019 at [facility]. Most recent echo showed EF 50% (12/13/19) Mitral valve disorder LOIS (obstructive sleep apnea) Pacemaker Medtronic, generator change 10/05/19 at [facility]. Medtronic. Last interrogation 02/02/20. 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 No significant prosthesis stenosis or regurg on 12/2019 echo. Severe mitral regurgitation with eccentric jet posteriorly directed. Ventricular tachycardia Surgical History Colonoscopy (08/25/12) H/O carotid endarterectomy (~1997) 1998 on right History of coronary artery bypass graft x 2 (~1983) 1983 - FOLLOWS WITH [facility] History of repair of inguinal hernia (11/06/18) Incarcerated right inguinal hernia repair and femoral hernia repair 11/06/18 Dr. Cho Hx of aortic valve replacement (~05/2018) [facility] 05/2018 S/P hernia repair RIGHT INGUINAL HERNIA REPAIR S/P left inguinal hernia repair (04/04/20) Open Sliding indirect Left Inguinal Hernia Repair, Direct weakness,with Mesh Placement, Excision Lipoma of Cord Dr. [place] 04/04/2020 Status post placement of cardiac pacemaker (~2013) 2014, [employer] - FOLLOWS WITH [facility] LAST CHECK 05/2018 AND NEXT CHECK WILL BE 10/2018 Status post right knee replacement Stented coronary artery (~2014) 2014 ONE STENT WAS PLACED AND FOLLOWS WITH [facility] Family History Other Heart disease Social History Smoking Status: Never smoker Second Hand Exposure: No; Do You Dip or Chew Tobacco: No; Hx Alcohol Use: No Hx Substance Use: No Preferred Language: Icelandic Communication Ability: Effective Solderer Barrel Ribs Required: Yes Beliefs That Will Affect Care: None Current Living Situation: Alone current occupational status: retired Feels Safe at Home: Yes Assistive Devices: Cane Review of Systems Review of Systems: See HPI above Physical Exam Physical Exam: General: patient appears in no acute distress; patient is somewhat lethargic, dazed; 99% on 4L NC; appears stated age; well-nourished; cooperative HEENT: normocephalic, atraumatic; cyanotic lips; no scleral icterus; PERRLA w/ EOMs intact; moist mucus membrane; trachea midline; vision and hearing grossly intact Skin: warm, dry without signs of tenting; no cyanosis; no rashes or lesions noted Cardiac: Permanent pacemaker; RRR; 3/6 systolic murmur auscultated at the second ICS MCL Pulm: no acute respiratory distress; expiratory wheezing auscultated at the anterior left upper lobe; symmetrical chest expansion; clear breath sounds across all lung waters without adventitious sounds Abdominal: Soft, nontender to palpation; BS present; no ascites; no distention MSK: no tics or fasciculations; no edema noted in the LEs b/l; pulses intact and symmetrical at radial, DP, and PT Neuro: A&Ox2; exhibits confusion; oriented to name and birthday and location, not to month/time; no tremors Results & Data Results & Data Vital Signs (Past 12 Hours) Vital Signs Temp Pulse Resp BP Pulse Ox O2 Del Method O2 Flow Rate 03/01/23 15:00 70 20 98 03/01/23 15:00 113/53 L 03/01/23 14:50 72 20 96 03/01/23 14:45 111/53 L 03/01/23 14:45 71 21 96 03/01/23 14:40 70 20 97 03/01/23 14:30 70 25 H 98 03/01/23 14:30 122/54 L 03/01/23 14:20 70 23 03/01/23 14:15 72 30 H 96 03/01/23 14:15 115/56 L 03/01/23 14:10 70 23 97 03/01/23 14:00 72 20 98 03/01/23 14:00 112/55 L 03/01/23 13:50 71 21 97 03/01/23 13:45 73 20 97 03/01/23 13:45 111/47 L 03/01/23 13:42 76 26 H 96 03/01/23 14:10 97 Nasal Cannula 2 03/01/23 13:46 Nasal Cannula 03/01/23 13:46 Nasal Cannula 4 03/01/23 13:42 80 03/01/23 13:36 38.0 C H 70 22 122/52 L 98 Nasal Cannula 4 Laboratory Results Abnormal lab results 03/01/23 03/01/23 03/01/23 Range/Units 13:40 13:40 13:40 RBC 3.94 L (4.70-6.10) M/uL Hgb 13.3 L (14.0-18.0) g/dl Hct 39.8 L (42.0-52.0) % MCV 101.0 H (80.0-100.0) fL RDW Std Deviation 51.8 H (36.4-46.3) fL Lymph # (Auto) 0.90 L (1.20-3.40) K/uL [place] # (Auto) 0.76 H (0.11-0.59) K/uL PT 18.4 H (9.0-12.0) Seconds INR 1.7 H (0.9-1.1) BUN 32 H (6-23) mg/dl Creatinine 1.51 H (0.6-1.4) mg/dl BUN/Creatinine Ratio 21.2 H (10-20) Lactate (0.4-2.0) mmol/L Direct Bilirubin 0.3 H (0-0.2) mg/dl Troponin I High Sens 34.2 H (0-20) pg/ml C-Reactive Protein 5.89 H (0-0.5) mg/dl SARS-CoV-2 (PCR) (NotDetected) 03/01/23 03/01/23 Range/Units 14:22 14:41 RBC (4.70-6.10) M/uL Hgb (14.0-18.0) g/dl Hct (42.0-52.0) % MCV (80.0-100.0) fL RDW Std Deviation (36.4-46.3) fL Lymph # (Auto) (1.20-3.40) K/uL [place] # (Auto) (0.11-0.59) K/uL PT (9.0-12.0) Seconds INR (0.9-1.1) BUN (6-23) mg/dl Creatinine (0.6-1.4) mg/dl BUN/Creatinine Ratio (10-20) Lactate 2.3 H* (0.4-2.0) mmol/L Direct Bilirubin (0-0.2) mg/dl Troponin I High Sens (0-20) pg/ml C-Reactive Protein (0-0.5) mg/dl SARS-CoV-2 (PCR) DETECTED A* (NotDetected) Diagnostic Findings Chest X-Ray 03/01/23 13:56 XR chest 1V portable HISTORY: 87 years-old Male Sepsis acute sepsis COMPARISON: 11/10/2020 TECHNIQUE: AP view of the chest FINDINGS: Cardiac silhouette is enlarged. Sternotomy wires with cardiac valvular prosthesis. Left subclavian pacer. No pneumothorax, pleural effusion or lobar airspace consolidation. Pulmonary vascular congestion with chronic interstitial coarsening. IMPRESSION: 1. Cardiomegaly with pulmonary vascular congestion. 2. Chronic interstitial coarsening. ACT 112: Negative or not required by law. The above report was generated using voice recognition software. It may contain grammatical, syntax or spelling errors. Electronically signed by: Luke Kaur M.D. 03/01/2023 2:26 PM Code Status & VTE Plan Code Status DNR/DNI VTE Prophylaxis Plan VTE Prophylaxis will be ordered: Yes Supervising Physician Co-Signing Physician Notes Patient seen and examined, chart reviewed, case discussed with Mamadou Smith I agree with the assessment and plan as above except as otherwise noted Labs and images reviewed Víctor is an 87-year-old male with past medical history of [place] who presents with progressive fatigue, fever, and weakness and he was COVID-positive on admission. COVID vaccinated. History is limited by cognitive status and dementia. At the bedside visit he feels tired, denies other symptoms. He reports he is not short of breath while on nasal cannula. Chest x-ray shows cardiomegaly with pulmonary vascular congestion and interstitial coarsening, patient was slightly hypotensive and improved with fluids. Lungs are clear, mucous membranes are tacky/dry on clinical assessment . mild prerenal azotemia versus YEMI with contracted creatinine ratio lactate is elevated on admission. Suspect viral pneumonia in 2/2 COVID. Additional 500 cc bolus of fluids given for lactate and suspected volume contraction. Patient is hypoxic, titrate oxygen to goal greater than 89%. Given hypoxia started on steroids 10-day c ourse recommended. Patient technically meets inclusion criteria for remdesivir and has a creatinine clearance above 30, but borderline. Risk/benefits were discussed with patient's daughter who is okay with treat with remdesivir, however if his clearance drops below 30 this should be discontinued. Troponin suspicious for demand, trended. CRP elevated consistent with COVID, trended. PG Care Time/CCT Total # of Minutes Spent Total Time Spent with Patient: Total time spent is greater than 50% in coordination of care (as documented) at patient's floor/unit and/or counseling patient: C[place] [address] INT INP/OBS CARE 3/75MIN Patient Type Established History Comprehensive Exam Comprehensive Medical Decision Making High Complexity Diagnoses COVID U07.1 Atrial fibrillation I48.91 Atrial fibrillation type: unspecified Chronic systolic heart failure I50.22 Elevated troponin R77.8 Hypotension I95.9 Dementia F03.90 BPH (benign prostatic hyperplasia) N40.0 Arthritis M19.90 Hyperlipidemia E78.5 Hyperlipidemia type: unspecified LOIS (obstructive sleep apnea) G47.33 (2) Atrial fibrillation Atrial fibrillation type: unspecified Qualified Code(s): I48.91 - Unspecified atrial fibrillation (9) Hyperlipidemia Hyperlipidemia type: unspecified Qualified Code(s): E78.5 - Hyperlipidemia, unspecified
--- NOTE | 2023-03-01 16:51 | Electrocardiogram Report ---
Test Reason : Blood Pressure : / mmHG Vent. Rate : 078 BPM Atrial Rate : 153 BPM P-R Int : 000 ms QRS Dur : 136 ms QT Int : 396 ms P-R-T Axes : 000 -57 081 degrees QTc Int : 451 ms Ventricular-paced rhythm Premature ventricular complexes Abnormal ECG Confirmed by Kvng Wright ([id number]) on 03/01/2023 4:51:16 PM Referred By: [facility] Confirmed By:De Wright
[2023-03-01] MEDS ORDERED: PLASMA-LYTE A 250 ML IV ONE (17:20)
[2023-03-01] MEDS ORDERED: REMDESIVIR 200 MG in SODIUM CHLORIDE 0.9% 210 ML IV ONE (17:45)
[2023-03-01] MEDS ORDERED: NITROGLYCERIN SL 0.4 MG/TAB TAB SL PRN (19:47)
[2023-03-01] MEDS ORDERED: ACETAMINOPHEN 325 MG TAB PO PRN (19:47)
[2023-03-01] MEDS ORDERED: FUROSEMIDE 20 MG TAB PO SCH (21:00)
[2023-03-01] MEDS ORDERED: VALSARTAN/SACUBITRIL 26/24MG TAB PO SCH (21:00)
[2023-03-01] MEDS: ACETAMINOPHEN 500 MG TAB PO SCH (21:36)
[2023-03-01] MEDS: FLUTICASONE PROPIONATE NA SPR 16 GM BTL SCH (21:37)
[2023-03-01] MEDS: DONEPEZIL HCL 10 MG TAB PO SCH (21:37)
[2023-03-01] MEDS: ISOSORBIDE MONO EXTENDED REL 60 MG TABCR PO SCH (21:38)
[2023-03-01] MEDS: GABAPENTIN 300 MG CAP PO SCH (21:38)
[2023-03-01] MEDS: MEMANTINE HCL 10 MG TAB PO SCH (21:38)
[2023-03-01] MEDS: METOPROLOL SUCC 50MG EXT REL TAB PO SCH (21:39)
[2023-03-01] MEDS: DICLOFENAC SOD 1% GEL 100 GM TUBE EXT SCH (21:40)
[2023-03-02] MEDS ORDERED: ALENDRONATE SODIUM 70 MG TAB PO SCH (06:30)
[2023-03-02 06:36] LABS: Hematocrit (blood only) 39.2 % (42.0-52.0); Immature Granulocytes # (auto) 0.03 K/uL (0.01-0.20); Immature Granulocytes % (auto) 0.5 %; Lymphocytes # (auto) 0.56 K/uL (1.20-3.40); Lymphocytes % (auto) 9.8 %; Mean Corpuscular Hemoglobin 33.8 pg (25.0-34.0); Mean Corpuscular Hgb Conc 33.2 g/dL (32.0-36.0); Mean Corpuscular Volume 101.8 fL (80.0-100.0); Mean Platelet Volume 10.1 fL (9.4-12.4); Monocytes # (auto) 0.25 K/uL (0.11-0.59); Monocytes % (auto) 4.4 %; Neutrophils % (auto) 85.3 %; Platelet Count 156 K/uL (130-400); RDW Coefficient of Variation 13.8 % (11.5-14.5); RDW Standard Deviation 52.1 fL (36.4-46.3); Red Blood Count 3.85 M/uL (4.70-6.10); White Blood Count 5.74 K/ul (4.8-10.8)
[2023-03-02] MEDS: ACETAMINOPHEN 500 MG TAB PO SCH ×3 (07:09→20:07)
[2023-03-02] MEDS: DICLOFENAC SOD 1% GEL 100 GM TUBE EXT SCH ×3 (07:10→20:02)
[2023-03-02 07:16] LABS: BUN Creatinine Ratio 26.3 (10-20); Calcium 8.7 mg/dl (8.6-10.3); Creatinine Clr Calc Pharmacy 36.2 ml/min; Est GFR (African American) 53.4 ml/min; Potassium 4.6 mmol/L (3.5-5.1)
[2023-03-02 07:48] LABS: INR 1.5 (0.9-1.1); Prothrombin Time 16.5 Seconds (9.0-12.0)
[2023-03-02] MEDS ORDERED: GLUCOSAMINE SULFATE 500 MG CAP PO SCH (09:00)
[2023-03-02] MEDS ORDERED: DEXAMETHASONE SOD INJ 4 MG/ML VIAL IV SCH (09:00)
[2023-03-02] MEDS ORDERED: FUROSEMIDE 40 MG TAB PO SCH (09:00)
[2023-03-02] MEDS: GLUCOSAMINE SULFATE 500 MG CAP PO SCH (09:46)
[2023-03-02] MEDS: MEMANTINE HCL 10 MG TAB PO SCH ×2 (09:46→20:10)
[2023-03-02] MEDS: FINASTERIDE 5 MG TAB PO SCH (09:46)
[2023-03-02] MEDS: METOPROLOL SUCC 50MG EXT REL TAB PO SCH ×2 (09:46→20:12)
[2023-03-02] MEDS: ASPIRIN 81 MG ECTAB PO SCH (09:46)
[2023-03-02] MEDS: ATORVASTATIN 40 MG TAB PO SCH (09:46)
[2023-03-02] MEDS: SERTRALINE HCL 50 MG TABLET PO SCH (09:46)
[2023-03-02] MEDS: PANTOprazole 40 MG TAB PO SCH (09:46)
[2023-03-02] MEDS: GABAPENTIN 300 MG CAP PO SCH ×3 (09:46→20:08)
[2023-03-02] MEDS: dexAMETHasone 6 MG in SYRINGE 0 ML IV SCH (09:47)
[2023-03-02] MEDS: LORATADINE 10 MG TAB PO SCH (09:47)
[2023-03-02] MEDS: FLUTICASONE PROPIONATE NA SPR 16 GM BTL SCH ×2 (09:47→20:06)
--- NOTE | 2023-03-02 12:06 | Hospitalist Progress Note ---
Date of Service March 02, 2023 Assessment & Plan (1) COVID: Plan: COVID nasal swab positivity. He may have a viral syndrome but I doubt if he has any viral pneumonia. We will treat with vitamin C and vitamin D along with parenteral steroid therapy. Remdesivir has been discontinued. (2) Atrial fibrillation: Plan: Rate control. Continue warfarin, metoprolol, digoxin. Daily PT/INR (3) Chronic systolic heart failure: Plan: This actually appears to be acute on chronic systolic heart failure. Parenteral Lasix ordered. Cardiac echo pending. We will monitor intake and output. Serial chest x-ray. Entresto has been restarted. (4) Elevated troponin: Plan: Mild elevation. No chest pain. No evidence of acute coronary syndrome. Telemetry. (5) Hypotension: Plan: Transient in the ED. Now resolved. Entresto has been restarted. (6) Dementia: Plan: Supportive care . Continue Aricept and Namenda (7) BPH (benign prostatic hyperplasia): Plan: Stable. Continue finasteride (8) Hyperlipidemia: Plan: Stable. Continue atorvastatin (9) LOIS (obstructive sleep apnea): Plan: Stable. CPAP/BiPAP at bedtime Plan To be determined. OT and PT evaluations will be obtained when appropriate. This will determine eventual discharge back to home or to SNF Admission and Anticipated Discharge Date Admission Date: March 01, 2023 Subjective Alert. Shortness of breath with minimal exertion. COVID nasal swab was positive on admission. Chest x-ray looks more like exacerbation of CHF. I doubt that he has viral pneumonia. IV Lasix ordered. He agrees with García catheter placement. We will treat with vitamin C and vitamin D along with parenteral steroids. Remdesivir has been discontinued. Entresto has been restarted. Cardiac echo is pending. Review of Systems Review of Systems: Constitutional-no fever or chills ENT-no blurred vision, no double vision, no epistaxis, no sore throat Respiratory-nonproductive cough. Shortness of breath at rest. No hemoptysis Cardiac-no palpitations, no chest pain, no syncope GI-no nausea, vomiting, diarrhea, melena, hematochezia -no urinary retention, no urinary incontinence, no dysuria, no hematuria Musculoskeletal-no joint pain, no muscle tenderness Skin-no bruising, no rashes, no pruritus Neuro-no isolated weakness, no paresthesia, no weakness Psych-no depression, no anxiety Physical Exam Physical Exam: General-alert and oriented x3, no fevers, no chills HEENT-head atraumatic and normocephalic, pupils equal and reactive to light, extraocular muscles intact Neck-no lymphadenopathy or thyromegaly, trachea midline Chest-bibasilar inspiratory rales. Expiratory wheezes. No dullness to per cussion. No rhonchi Cardiac-regular rate and rhythm, normal S1 and S2. Occasional premature beats Abdomen-normal bowel sounds, nontender, no hepatosplenomegaly Extremities-no cyanosis, clubbing, or edema Neuro-cranial nerves II through XII intact, motor and sensory function within normal limits, strength symmetrical with generalized weakness, no focal deficits Psych-depressed affect Results & Data Results & Data Vital Signs (Past 12 Hours) Vital Signs Temp Pulse Pulse Resp BP Pulse Ox O2 Del Method 03/02/23 10:48 36.4 C L 70 20 119/64 97 Nasal Cannula 03/02/23 06:52 34.6 C L 72 18 126/72 96 Nasal Cannula 03/02/23 06:42 72 95 Nasal Cannula O2 Flow Rate 03/02/23 10:48 4 03/02/23 06:52 4 03/02/23 06:42 4 Laboratory Results 03/02/23 05:43 03/02/23 05:43 PG Care Time/CCT Total # of Minutes Spent Total Time Spent with Patient: Total time spent is greater than 50% in coordination of care (as documented) at patient's floor/unit and/or counseling patient: Coding Level of Care Code 04474 SUB INP/OBS CARE 3/50MIN Diagnoses COVID U07.1 Atrial fibrillation I48.91 Atrial fibrillation type: unspecified Chronic systolic heart failure I50.22 Elevated troponin R77.8 Hypotension I95.9 Dementia F03.90 BPH (benign prostatic hyperplasia) N40.0 Hyperlipidemia E78.5 Hyperlipidemia type: unspecified LOIS (obstructive sleep apnea) G47.33 (2) Atrial fibrillation Atrial fibrillation type: unspecified Qualified Code(s): I48.91 - Unspecified atrial fibrillation (8) Hyperlipidemia Hyperlipidemia type: unspecified Qualified Code(s): E78.5 - Hyperlipidemia, unspecified
[2023-03-02] MEDS: CHOLECALCIFEROL 5,000 UNITS 125 MCG TAB PO SCH (13:47)
[2023-03-02] MEDS: ASCORBIC ACID 500 MG TAB PO SCH (13:47)
[2023-03-02] MEDS: VALSARTAN/SACUBITRIL 26/24MG TAB PO SCH ×2 (13:47→20:11)
[2023-03-02 14:23] LABS: Appearance Urine Clear (Clear); Bacteria Urine Automated Negative (Negative); Bilirubin Urine Negative (Negative); Blood Urine 3+ (Negative); Color Urine Yellow; Epithelial Cell Urine Auto >30 /lpf (0-5); Glucose Urine UA Negative (Negative); Ketones Urine Negative (Negative); Leukocyte Esterase Urine Negative (Negative); Nitrite Urine Negative (Negative); Protein Urine 1+ (Negative); RBC Urine Automated >30 /hpf (0-4); Specific Gravity Urine 1.016 (1.000-1.030); Urobilinogen Urine Negative (Negative)
[2023-03-02] MEDS: WARFARIN SOD 4 MG TAB PO SCH (16:48)
[2023-03-02] MEDS: FUROSEMIDE 40 MG/4 ML VIAL IV SCH (16:48)
[2023-03-02] MEDS: DIGOXIN 0.125 MG TAB PO SCH (16:48)
--- NOTE | 2023-03-02 17:30 | XCELERA ---
[id number]
[2023-03-02] MEDS ORDERED: REMDESIVIR 100 MG in SODIUM CHLORIDE 0.9% 230 ML IV SCH (20:00)
[2023-03-02] MEDS: DONEPEZIL HCL 10 MG TAB PO SCH (20:03)
[2023-03-02] MEDS: ISOSORBIDE MONO EXTENDED REL 60 MG TABCR PO SCH (20:11)
[2023-03-02] MEDS: traMADol HCL 50 MG TABLET PO PRN (21:49)
[2023-03-02] MEDS: MELATONIN 3 MG TAB PO PRN (21:49)
[2023-03-03] MEDS: DICLOFENAC SOD 1% GEL 100 GM TUBE EXT SCH ×3 (05:36→19:29)
[2023-03-03] MEDS: ACETAMINOPHEN 500 MG TAB PO SCH ×3 (05:37→19:31)
[2023-03-03 06:34] LABS: Hematocrit (blood only) 36.6 % (42.0-52.0); Hemoglobin 12.3 g/dl (14.0-18.0); Immature Granulocytes # (auto) 0.02 K/uL (0.01-0.20); Immature Granulocytes % (auto) 0.2 %; Lymphocytes # (auto) 1.05 K/uL (1.20-3.40); Lymphocytes % (auto) 12.3 %; Mean Corpuscular Hemoglobin 33.6 pg (25.0-34.0); Mean Corpuscular Hgb Conc 33.6 g/dL (32.0-36.0); Mean Platelet Volume 10.2 fL (9.4-12.4); Neutrophils # (auto) 6.86 K/uL (1.40-6.50); Neutrophils % (auto) 80.5 %; Platelet Count 148 K/uL (130-400); RDW Coefficient of Variation 13.6 % (11.5-14.5); RDW Standard Deviation 50.5 fL (36.4-46.3); Red Blood Count 3.66 M/uL (4.70-6.10); White Blood Count 8.53 K/ul (4.8-10.8)
[2023-03-03 06:59] LABS: BUN Creatinine Ratio 35.8 (10-20); Calcium 8.9 mg/dl (8.6-10.3); Est GFR (African American) 48.6 ml/min; Est GFR (Non-African American) 41.9 ml/min; Potassium 4.6 mmol/L (3.5-5.1)
[2023-03-03 07:04] LABS: INR 1.5 (0.9-1.1); Prothrombin Time 15.7 Seconds (9.0-12.0)
[2023-03-03] MEDS: dexAMETHasone 6 MG in SYRINGE 0 ML IV SCH (08:27)
[2023-03-03] MEDS: FLUTICASONE PROPIONATE NA SPR 16 GM BTL SCH ×2 (08:27→19:28)
[2023-03-03] MEDS: GLUCOSAMINE SULFATE 500 MG CAP PO SCH (08:27)
[2023-03-03] MEDS: GABAPENTIN 300 MG CAP PO SCH ×3 (08:28→19:34)
[2023-03-03] MEDS: ASPIRIN 81 MG ECTAB PO SCH (08:28)
[2023-03-03] MEDS: PANTOprazole 40 MG TAB PO SCH (08:28)
[2023-03-03] MEDS: LORATADINE 10 MG TAB PO SCH (08:28)
[2023-03-03] MEDS: MEMANTINE HCL 10 MG TAB PO SCH ×2 (08:28→19:33)
[2023-03-03] MEDS: ASCORBIC ACID 500 MG TAB PO SCH (08:28)
[2023-03-03] MEDS: METOPROLOL SUCC 50MG EXT REL TAB PO SCH ×2 (08:28→19:36)
[2023-03-03] MEDS: ATORVASTATIN 40 MG TAB PO SCH (08:28)
[2023-03-03] MEDS: SERTRALINE HCL 50 MG TABLET PO SCH (08:28)
[2023-03-03] MEDS: FINASTERIDE 5 MG TAB PO SCH (08:28)
[2023-03-03] MEDS: VALSARTAN/SACUBITRIL 26/24MG TAB PO SCH ×2 (08:28→19:32)
[2023-03-03] MEDS: CHOLECALCIFEROL 5,000 UNITS 125 MCG TAB PO SCH (08:28)
[2023-03-03] MEDS: FUROSEMIDE 40 MG/4 ML VIAL IV SCH ×2 (08:28→17:11)
--- NOTE | 2023-03-03 12:11 | Hospitalist Progress Note ---
Date of Service March 03, 2023 Assessment & Plan (1) COVID: Plan: COVID nasal swab positivity. He may have a viral syndrome but I doubt if he has any viral pneumonia. Continue treatment with vitamin C and vitamin D along with parenteral steroid therapy. Remdesivir has been discontinued. (2) Atrial fibrillation: Plan: Rate control. Continue warfarin, metoprolol, digoxin. Daily PT/INR (3) Chronic systolic heart failure: Plan: This actually appears to be acute on chronic systolic heart failure. Continue parenteral Lasix. Cardiac echo to report noted. I question the validity of the ejection fraction estimation. He has inferior lateral hypokinesis which is likely results in reduced ejection fraction. EF was 35% on previous echo. Continue to monitor intake and output. Repeat chest x-ray again tomorrow, March 04. Continue Entresto (4) Elevated troponin: Plan: Mild elevation. No chest pain. No evidence of acute coronary syndrome. Tele metry. (5) Hypotension: Plan: Transient in the ED. Now resolved. Entresto has been restarted and is well- tolerated so far (6) Dementia: Plan: Supportive care . Continue Aricept and Namenda (7) BPH (benign prostatic hyperplasia): Plan: Stable. Continue finasteride (8) Hyperlipidemia: Plan: Stable. Continue atorvastatin (9) LOIS (obstructive sleep apnea): Plan: Stable. CPAP/BiPAP at bedtime Plan To be determined by OT and PT evaluations which have been requested. Admission and Anticipated Discharge Date Admission Date: March 01, 2023 Subjective Alert and oriented. Feeling better. Brisk diuresis with IV Lasix. He is now on room air. We will repeat portable chest x-ray again tomorrow, March 04. OT and PT assessments have been requested. INR remains at 1.5. Cardiac echo reveals ejection fraction of 50 to 55% but he has inferior lateral hypokinesis and moderately severe MR. I question the accuracy of the ejection fraction estimation. Creatinine stable at 1.4. Potassium stable at 4.6 Review of Systems Review of Systems: Constitutional-no fever or chills ENT-no blurred vision, no double vision, no epistaxis, no sore throat Respiratory-nonproductive cough. Shortness of breath at rest. No hemoptysis Cardiac-no palpitations, no chest pain, no syncope GI-no nausea, vomiting, diarrhea, melena, hematochezia -no urinary retention, no urinary incontinence, no dysuria, no hematuria Musculoskeletal-no joint pain, no muscle tenderness Skin-no bruising, no rashes, no pruritus Neuro-no isolated weakness, no paresthesia, no weakness Psych-no depression, no anxiety Physical Exam Physical Exam: General-alert and oriented x3, no fevers, no chills HEENT-head atraumatic and normocephalic, pupils equal and reactive to light, extraocular muscles intact Neck-no lymphadenopathy or thyromegaly, trachea midline Chest-bibasilar inspiratory rales. Expiratory wheezes. No dullness to percussion. No rhonchi Cardiac-regular rate and rhythm, normal S1 and S2. Occasional premature beats Abdomen-normal bowel sounds, nontender, no hepatosplenomegaly Extremities-no cyanosis, clubbing, or edema Neuro-cranial nerves II through XII intact, motor and sensory function within normal limits, strength symmetrical with generalized weakness, no focal deficits Psych-depressed affect Results & Data Results & Data Vital Signs (Past 12 Hours) Vital Signs Temp Pulse Pulse Resp BP Pulse Ox O2 Del Method 03/03/23 11:00 36.3 C L 70 16 98/58 L 92 Room Air 03/03/23 08:00 Room Air 03/03/23 08:00 92 03/03/23 08:00 75 03/03/23 08:20 36.2 C L 73 20 104/56 L 92 Room Air 03/03/23 07:18 36.2 C L 70 17 111/62 94 Room Air 03/03/23 02:56 36.4 C L 69 18 105/62 91 Room Air Laboratory Results 03/03/23 06:02 03/03/23 06:02 PG Care Time/CCT Total # of Minutes Spent Total Time Spent with Patient: Total time spent is greater than 50% in coordination of care (as documented) at patient's floor/unit and/or counseling patient: Coding Level of Care Code 72282 SUB INP/OBS CARE 3/50MIN Diagnoses COVID U07.1 Atrial fibrillation I48.91 Atrial fibrillation type: unspecified Chronic systolic heart failure I50.22 Elevated troponin R77.8 Hypotension I95.9 Dementia F03.90 BPH (benign prostatic hyperplasia) N40.0 Hyperlipidemia E78.5 Hyperlipidemia type: unspecified LOIS (obstructive sleep apnea) G47.33 (2) Atrial fibrillation Atrial fibrillation type: unspecified Qualified Code(s): I48.91 - Unspecified atrial fibrillation (8) Hyperlipidemia Hyperlipidemia type: unspecified Qualified Code(s): E78.5 - Hyperlipidemia, unspecified
[2023-03-03] MEDS: traMADol HCL 50 MG TABLET PO PRN ×2 (14:21→19:37)
[2023-03-03] MEDS: WARFARIN SOD 4 MG TAB PO SCH (17:16)
[2023-03-03] MEDS: DIGOXIN 0.125 MG TAB PO SCH (17:16)
[2023-03-03] MEDS: MELATONIN 3 MG TAB PO PRN (19:31)
[2023-03-03] MEDS: DONEPEZIL HCL 10 MG TAB PO SCH (19:34)
[2023-03-03] MEDS: ISOSORBIDE MONO EXTENDED REL 60 MG TABCR PO SCH (19:35)
[2023-03-04 06:30] LABS: Basophils # (auto) 0.01 K/uL (0.00-0.20); Basophils % (auto) 0.1 %; Hematocrit (blood only) 38.1 % (42.0-52.0); Hemoglobin 13.1 g/dl (14.0-18.0); Immature Granulocytes # (auto) 0.01 K/uL (0.01-0.20); Immature Granulocytes % (auto) 0.1 %; Lymphocytes # (auto) 1.15 K/uL (1.20-3.40); Mean Corpuscular Hemoglobin 33.8 pg (25.0-34.0); Mean Corpuscular Hgb Conc 34.4 g/dL (32.0-36.0); Mean Corpuscular Volume 98.2 fL (80.0-100.0); Mean Platelet Volume 10.4 fL (9.4-12.4); Monocytes # (auto) 0.74 K/uL (0.11-0.59); Neutrophils # (auto) 6.29 K/uL (1.40-6.50); Neutrophils % (auto) 76.8 %; Platelet Count 172 K/uL (130-400); RDW Coefficient of Variation 13.3 % (11.5-14.5); RDW Standard Deviation 47.9 fL (36.4-46.3); Red Blood Count 3.88 M/uL (4.70-6.10)
[2023-03-04 06:45] LABS: BUN Creatinine Ratio 36.1 (10-20); Calcium 9.1 mg/dl (8.6-10.3); Est GFR (African American) 41.4 ml/min; Est GFR (Non-African American) 35.7 ml/min; Potassium 3.9 mmol/L (3.5-5.1)
[2023-03-04 07:01] LABS: INR 1.5 (0.9-1.1); Prothrombin Time 15.6 Seconds (9.0-12.0)
--- NOTE | 2023-03-04 08:01 | XRay Report ---
XR chest 1V portable HISTORY: Shortness of breath. Congestive heart failure. COMPARISON: Chest 03/01/2023. FINDINGS: No pneumothorax. The cardiac silhouette remains mildly enlarged. There are poststernotomy c hanges, an aortic valve prosthesis, and a left-sided pacemaker/defibrillator. Diffuse interstitial th ickening persists and is likely chronic. No new focal lung consolidations. No evidence for pulmonary edema. IMPRESSION: Stable cardiomegaly and chronic interstitial thickening. ACT 112: Negative or not required by law. Electronically signed by: Sukhi Moscoso M.D. 03/04/2023 8:00 AM
[2023-03-04] MEDS: FINASTERIDE 5 MG TAB PO SCH (08:04)
[2023-03-04] MEDS: PANTOprazole 40 MG TAB PO SCH (08:04)
[2023-03-04] MEDS: CHOLECALCIFEROL 5,000 UNITS 125 MCG TAB PO SCH (08:04)
[2023-03-04] MEDS: METOPROLOL SUCC 50MG EXT REL TAB PO SCH ×2 (08:04→19:13)
[2023-03-04] MEDS: VALSARTAN/SACUBITRIL 26/24MG TAB PO SCH ×2 (08:04→19:13)
[2023-03-04] MEDS: MEMANTINE HCL 10 MG TAB PO SCH ×2 (08:04→19:13)
[2023-03-04] MEDS: GABAPENTIN 300 MG CAP PO SCH ×3 (08:04→19:13)
[2023-03-04] MEDS: ATORVASTATIN 40 MG TAB PO SCH (08:05)
[2023-03-04] MEDS: FLUTICASONE PROPIONATE NA SPR 16 GM BTL SCH ×2 (08:05→19:14)
[2023-03-04] MEDS: LORATADINE 10 MG TAB PO SCH (08:05)
[2023-03-04] MEDS: GLUCOSAMINE SULFATE 500 MG CAP PO SCH (08:05)
[2023-03-04] MEDS: SERTRALINE HCL 50 MG TABLET PO SCH (08:05)
[2023-03-04] MEDS: FUROSEMIDE 40 MG/4 ML VIAL IV SCH (08:05)
[2023-03-04] MEDS: ASPIRIN 81 MG ECTAB PO SCH (08:05)
[2023-03-04] MEDS: ASCORBIC ACID 500 MG TAB PO SCH (08:05)
[2023-03-04] MEDS: dexAMETHasone 6 MG in SYRINGE 0 ML IV SCH (08:06)
[2023-03-04] MEDS: DICLOFENAC SOD 1% GEL 100 GM TUBE EXT SCH ×3 (08:07→19:14)
[2023-03-04] MEDS: ACETAMINOPHEN 500 MG TAB PO SCH ×3 (08:07→19:16)
--- NOTE | 2023-03-04 13:04 | Discharge Summary ---
Date of Service March 04, 2023 Admission HPI Per Admitting Provider Víctor is an 87-year-old male with PMH of dementia, A-fib, COPD, CKD, CAD, CHF, TIAs, AL, hypoxia, permanent pacemaker, and pulmonary fibrosis. He presented from [facility] for worsening fatigue x2 day, and 85% SPO2 on RA this morning. He tested positive for COVID on arrival. Per daughter (Xochitl), the patient is vaccinated for COVID + 1 booster in Fall 2021. , but can not remember when he got it. Patient is a poor historian at baseline due to underlying dementia. He reports he does not know how he got to the hospital. Denies any recent sick contacts. He reports he thinks he took his medicine this morning, but does not know what he takes. Former tobacco cigarette smoker, but quit 40 years ago. Patient is febrile at 38.0 C and hypotensive at 100/46 at time of admission. ED course: IVF, acetaminophen 650 mg, Decadron 10 mg IV ROS: Patient endorses fatigue, chronic cough. Patient denies fever, chill, sweats, dizziness, lightheadedness, BOOTH, confusion, brain fog, hemoptysis, CP, pleuritic CP, SOB, abd pain, N/V/D, urinary s/s, burning with urination, numbness or tingling in legs. Spoke on the phone with patient's daughter (Xochitl) who provided some additional history and confirmed code status. Daughter confirmed that the patient has chronic cough at baseline. Principal Diagnosis Acute on chronic systolic CHF, acute hypoxic respiratory failure, COVID positivity per nasal swab, viral syndrome Discharge Exam General-alert and oriented x3, no fevers, no chills HEENT-head atraumatic and normocephalic, pupils equal and reactive to light, extraocular muscles intact Neck-no lymphadenopathy or thyromegaly, trachea midline Chest-bibasilar inspiratory rales have resolved.. Expiratory wheezes have resolved. No dullness to percussion. No rhonchi Cardiac-regular rate and rhythm, normal S1 and S2. Occasional premature beats Abdomen-normal bowel sounds, nontender, no hepatosplenomegaly Extremities-no cyanosis, clubbing, or edema Neuro-cranial nerves II through XII intact, motor and sensory function within normal limits, strength symmetrical with mild generalized weakness, no focal deficits Psych-normal affect Discharge Data Allergies Allergy/AdvReac Type Severity Reaction Status Date / Time oxycodone Allergy Severe HALLUCINATI Verified 10/23/21 09:34 ONS TASHA Inhibitors AdvReac Intermediate Cough Verified 10/23/21 09:34 rosuvastatin AdvReac Intermediate CONSTIPATIO Verified 10/23/21 09:34 N niacin AdvReac Mild FLUSHING Verified 10/23/21 09:34 paroxetine AdvReac Mild drowsiness Verified 10/23/21 09:34 Consultations 03/01/23 15:34 ED Decision to Admit Stat Hospital Course (1) COVID: COVID nasal swab positivity. He may have a viral syndrome but I doubt if he has any viral pneumonia. Treated while hospitalized with vitamin C and vitamin D along with parenteral steroid therapy. Remdesivir has been discontinued. He will continue vitamin D at discharge (2) Atrial fibrillation: Rate control. Continue warfarin, metoprolol, digoxin. Daily PT/INR (3) Acute respiratory failure with hypoxia: Resolved. Oxygen has been weaned off (4) Chronic systolic heart failure: This actually appears to be acute on chronic systolic heart failure. Treated while hospitalized with parenteral Lasix. Cardiac echo to report noted. I question the validity of the ejection fraction estimation. He has inferior lateral hypokinesis which is likely results in reduced ejection fraction. EF was 35% on previous echo. Continue to monitor intake and output. Repeat chest x-ray today, March 04, looks better. Home Lasix dosage has been uptitrated. Continue Entresto (5) Elevated troponin: Mild elevation. No chest pain. No evidence of acute coronary syndrome. Telemetry. (6) Hypotension: Transient in the ED. Now resolved. Entresto has been restarted and is well- tolerated so far (7) Dementia: Supportive care . Continue Aricept and Namenda (8) BPH (benign prostatic hyperplasia): Stable. Continue finasteride (9) Hyperlipidemia: Stable. Continue atorvastatin (10) LOIS (obstructive sleep apnea): Stable. CPAP/BiPAP at bedtime Plan He is medically stable for return to [facility] today, March 04 . Total Time Total Time Spent Total Time Spent (In Minutes): 45 minutes Discharge Plan Discharge Items Patient Disposition: [facility] Reason For Visit: COVID Discharge Diagnosis: Acute on chronic systolic congestive heart failure, acute hypoxic respiratory failure, viral syndrome, COVID positivity by nasal swab Activity: Resume your previous activity Non-emergency contact: Primary Care Provider Follow-up/Referrals: Jeffrey AlonsoPersonal Care, Jess [Primary Care Provider] - Diet: Regular Addtl Attending Provider Instructions: Lasix dosage has been increased to 40 mg twice daily. Continue vitamin D 5000 units daily Pending Studies at Discharge: No Stand-Alone Forms: My [employer], Smoking Cessation Skilled Items Patient informed of condition?: Yes DNR: Yes Discharge Level of Care: Other Communicable Disease: No Discharge Prognosis: Stable Lines: None Urinary Catheter: No Medications and DC Order Prescriptions: New furosemide 40 mg Tablet 40 mg PO BID17 Qty: 60 0RF cholecalciferol (vitamin D3) 125 mcg (5,000 unit) Tablet 5,000 unit PO QAM Qty: 0 0RF Continued loratadine 10 mg tablet 10 mg PO DAILY isosorbide mononitrate 60 mg Tablet Extended Release 24 Hr 60 mg PO HS pantoprazole 40 mg Tablet,Delayed Release (Dr/Ec) 40 mg PO QAM atorvastatin 40 mg tablet 40 mg PO DAILY gabapentin 300 mg capsule 300 mg PO TID Rx Instructions: Morning, Mid day, and bed time. aspirin 81 mg Tablet,Delayed Release (Dr/Ec) 81 mg PO DAILY Glucosamine Chondroitin 550-30-1 mg Capsule 3 cap PO BID multivitamin [Daily-Selena] Tablet 1 tab PO DAILY warfarin 4 mg tablet 4 mg PO DAILY PreserVision AREDS-2 250-90-40-1 mg Capsule 1 tab PO DAILY CoQ-10 1 tab PO DAILY Vitamin D3 1 tab PO DAILY donepezil 10 mg tablet 10 mg PO HS alendronate 70 mg tablet 70 mg PO .EVERY FRIDAY digoxin 125 mcg (0.125 mg) tablet 125 mcg PO DAILY tramadol 50 mg tablet 75 - 125 mg PO Q4 PRN (Reason: Pain) finasteride 5 mg tablet 5 mg PO DAILY melatonin 3 mg Tablet 3 mg PO HS PRN (Reason: Sleep) metoprolol succinate 100 mg tablet extended release 24 hr 50 mg PO BID diclofenac sodium 1 % Gel 2 g TOPICAL TID Rx Instructions: apply to affected area 0600,1400,1999 Entresto 24-26 mg tablet 1 tab PO BID Rx Instructions: hold for BP<90 acetaminophen 500 mg Tablet 500 mg PO TID Rx Instructions: 0600,1400,1999 sertraline 25 mg tablet 25 mg PO DAILY nitroglycerin 0.4 mg Tablet, Sublingual 0.4 mg sublingual .Q 5 MIN PRN (Reason: Chest Pain) Rx Instructions: take 1 tablet under tongue every 5 min's as needed for chest pain x 3 doses, if no relief call 911 calcium carbonate [Calcium 600] 600 mg calcium (1,500 mg) Tablet 600 mg PO QDL fluticasone propionate [Flonase Allergy Relief] 50 mcg/actuation [place],Suspension 1 spray INTRANASAL BID Rx Instructions: administer into each nostril memantine [Namenda] 10 mg Tablet 10 mg PO BID Qty: 30 1RF Discontinued furosemide 40 mg tablet 40 mg PO QAM furosemide 40 mg tablet 20 mg PO QPM Discharge Orders: Discharge Order- CHF (Routine); Ordered 03/04/23 Ordered By: Dalton Thompson Admission Data Admit Date/Time: 03/01/23 16:57 Attending Provider: Dalton Thompson Admit Provider: Domo Goel Primary Care Provider: [facility], [facility] Other Providers: Domo Goel Coding Level of Care Code 13018 INP/OBS DISCH >30 MIN Diagnoses COVID U07.1 Atrial fibrillation I48.91 Atrial fibrillation type: unspecified Acute respiratory failure with hypoxia J96.01 Chronic systolic heart failure I50.22 Elevated troponin R77.8 Hypotension I95.9 Dementia F03.90 BPH (benign prostatic hyperplasia) N40.0 Hyperlipidemia E78.5 Hyperlipidemia type: unspecified LOIS (obstructive sleep apnea) G47.33
--- NOTE | 2023-03-04 14:12 | Hospitalist Progress Note ---
Date of Service March 04, 2023 Assessment & Plan (1) COVID: Plan: COVID nasal swab positivity. He may have a viral syndrome but I doubt if he has any viral pneumonia. Treated while hospitalized with vitamin C and vitamin D along with parenteral steroid therapy. Remdesivir has been discontinued. He will continue vitamin D at discharge (2) Atrial fibrillation: Plan: Rate control. Continue warfarin, metoprolol, digoxin. Daily PT/INR (3) Acute respiratory failure with hypoxia: Plan: Resolved. Oxygen has been weaned off (4) Chronic systolic heart failure: Plan: This actually appears to be acute on chronic systolic heart failure. Treated while hospitalized with parenteral Lasix. Cardiac echo to report noted. I question the validity of the ejection fraction estimation. He has inferior lateral hypokinesis which is likely results in reduced ejection fraction. EF was 35% on previous echo. Continue to monitor intake and output. Repeat chest x-ray today, March 04, looks better. Home Lasix dosage has been uptitrated. Continue Entresto (5) Elevated troponin: Plan: Mild elevation. No chest pain. No evidence of acute coronary syndrome. Telemetry. (6) Hypotension: Plan: Transient in the ED. Now resolved. Entresto has been restarted and is well- tolerated so far (7) Dementia: Plan: Supportive care . Continue Aricept and Namenda (8) BPH (benign prostatic hyperplasia): Plan: Stable. Continue finasteride (9) Hyperlipidemia: Plan: Stable. Continue atorvastatin (10) LOIS (obstructive sleep apnea): Plan: Stable. CPAP/BiPAP at bedtime Plan He is medically stable for return to [facility]. Hopefully tomorrow, March 05. Admission and Anticipated Discharge Date Admission Date: March 01, 2023 Subjective Alert and oriented. Continued brisk diuresis with IV Lasix which has now been switched to oral dosing. Chest x-ray done today, March 04, looks much better. Unfortunately[facility] IN[facility] 1.5. We will remove García catheter that was placed on admission. Review of Systems Review of Systems: Constitutional-no fever or chills ENT-no blurred vision, no double vision, no epistaxis, no sore throat Respiratory-nonproductive cough. Shortness of breath at rest. No hemoptysis Cardiac-no palpitations, no chest pain, no syncope GI-no nausea, vomiting, diarrhea, melena, hematochezia -no urinary retention, no urinary incontinence, no dysuria, no hematuria Musculoskeletal-no joint pain, no muscle tenderness Skin-no bruising, no rashes, no pruritus Neuro-no isolated weakness, no paresthesia, no weakness Psych-no depression, no anxiety Physical Exam Physical Exam: General-alert and oriented x3, no fevers, no chills HEENT-head atraumatic and normocephalic, pupils equal and reactive to light, extraocular muscles intact Neck-no lymphadenopathy or thyromegaly, trachea midline Chest-bibasilar inspiratory rales have resolved.. Expiratory wheezes have resolved. No dullness to percussion. No rhonchi Cardiac-regular rate and rhythm, normal S1 and S2. Occasional premature beats Abdomen-normal bowel sounds, nontender, no hepatosplenomegaly Extremities-no cyanosis, clubbing, or edema Neuro-cranial nerves II through XII intact, motor and sensory function within normal limits, strength symmetrical with mild generalized weakness, no focal deficits Psych-normal affect Results & Data Results & Data Vital Signs (Past 12 Hours) Vital Signs Temp Pulse Pulse Resp BP Pulse Ox O2 Del Method 03/04/23 11:55 36.4 C L 78 19 111/68 92 Room Air 03/04/23 08:00 Room Air 03/04/23 08:00 73 03/04/23 07:44 36.2 C L 69 19 108/69 91 Room Air 03/04/23 02:34 36.3 C L 70 16 105/59 L 93 Room Air Laboratory Results 03/04/23 05:47 03/04/23 05:47 PG Care Time/CCT Total # of Minutes Spent Total Time Spent with Patient: Total time spent is greater than 50% in coordination of care (as documented) at patient's floor/unit and/or counseling patient: Coding Level of Care Code 72616 SUB INP/OBS CARE 3/50MIN Diagnoses COVID U07.1 Atrial fibrillation I48.91 Atrial fibrillation type: unspecified Acute respiratory failure with hypoxia J96.01 Chronic systolic heart failure I50.22 Elevated troponin R77.8 Hypotension I95.9 Dementia F03.90 BPH (benign prostatic hyperplasia) N40.0 Hyperlipidemia E78.5 Hyperlipidemia type: unspecified LOIS (obstructive sleep apnea) G47.33 (2) Atrial fibrillation Atrial fibrillation type: unspecified Qualified Code(s): I48.91 - Unspecified atrial fibrillation (9) Hyperlipidemia Hyperlipidemia type: unspecified Qualified Code(s): E78.5 - Hyperlipidemia, unspecified
[2023-03-04] MEDS: FUROSEMIDE 40 MG TAB PO SCH (16:54)
[2023-03-04] MEDS: WARFARIN SOD 4 MG TAB PO SCH (16:54)
[2023-03-04] MEDS: DIGOXIN 0.125 MG TAB PO SCH (16:54)
[2023-03-04] MEDS: ISOSORBIDE MONO EXTENDED REL 60 MG TABCR PO SCH (19:13)
[2023-03-04] MEDS: DONEPEZIL HCL 10 MG TAB PO SCH (19:14)
[2023-03-05] MEDS: DICLOFENAC SOD 1% GEL 100 GM TUBE EXT SCH ×2 (06:16→14:25)
[2023-03-05] MEDS: ACETAMINOPHEN 500 MG TAB PO SCH ×2 (06:21→14:27)
[2023-03-05] MEDS: LORATADINE 10 MG TAB PO SCH (07:40)
[2023-03-05] MEDS: FINASTERIDE 5 MG TAB PO SCH (07:40)
[2023-03-05] MEDS: ASPIRIN 81 MG ECTAB PO SCH (07:40)
[2023-03-05] MEDS: CHOLECALCIFEROL 5,000 UNITS 125 MCG TAB PO SCH (07:40)
[2023-03-05] MEDS: GLUCOSAMINE SULFATE 500 MG CAP PO SCH (07:41)
[2023-03-05] MEDS: VALSARTAN/SACUBITRIL 26/24MG TAB PO SCH (07:41)
[2023-03-05] MEDS: ASCORBIC ACID 500 MG TAB PO SCH (07:41)
[2023-03-05] MEDS: MEMANTINE HCL 10 MG TAB PO SCH (07:41)
[2023-03-05] MEDS: SERTRALINE HCL 50 MG TABLET PO SCH (07:41)
[2023-03-05] MEDS: PANTOprazole 40 MG TAB PO SCH (07:41)
[2023-03-05] MEDS: METOPROLOL SUCC 50MG EXT REL TAB PO SCH (07:41)
[2023-03-05] MEDS: GABAPENTIN 300 MG CAP PO SCH ×2 (07:41→14:26)
[2023-03-05] MEDS: ATORVASTATIN 40 MG TAB PO SCH (07:42)
[2023-03-05] MEDS: FUROSEMIDE 40 MG TAB PO SCH (07:42)
[2023-03-05] MEDS: dexAMETHasone 6 MG in SYRINGE 0 ML IV SCH (07:43)
[2023-03-05] MEDS: FLUTICASONE PROPIONATE NA SPR 16 GM BTL SCH (07:46)
--- NOTE | 2023-03-05 12:04 | Discharge Summary ---
Date of Service March 05, 2023 Admission HPI Per Admitting Provider Víctor is an 87-year-old male with PMH of dementia, A-fib, COPD, CKD, CAD, CHF, TIAs, [place], hypoxia, permanent pacemaker, and pulmonary fibrosis. He presented from [facility] for worsening fatigue x2 day, and 85% SPO2 on RA this morning. He tested positive for COVID on arrival. Per daughter (Xochitl), the patient is vaccinated for COVID + 1 booster in Fall 2021. , but can not remember when he got it. Patient is a poor historian at baseline due to underlying dementia. He reports he does not know how he got to the hospital. Denies any recent sick contacts. He reports he thinks he took his medicine this morning, but does not know what he takes. Former tobacco cigarette smoker, but quit 40 years ago. Patient is febrile at 38.0 C and hypotensive at 100/46 at time of admission. ED course: IVF, acetaminophen 650 mg, Decadron 10 mg IV ROS: Patient endorses fatigue, chronic cough. Patient denies fever, chill, sweats, dizziness, lightheadedness, BOOTH, confusion, brain fog, hemoptysis, CP, pleuritic CP, SOB, abd pain, N/V/D, urinary s/s, burning with urination, numbness or tingling in legs. Spoke on the phone with patient's daughter (Xochitl) who provided some additional history and confirmed code status. Daughter confirmed that the patient has chronic cough at baseline. Principal Diagnosis Acute on chronic systolic congestive heart failure, viral syndrome, COVID nasal swab positivity, acute hypoxic respiratory failure Discharge Exam General-alert and oriented x3, no fevers, no chills HEENT-head atraumatic and normocephalic, pupils equal and reactive to light, extraocular muscles intact Neck-no lymphadenopathy or thyromegaly, trachea midline Chest-bibasilar inspiratory rales have resolved.. Expiratory wheezes have resolved. No dullness to percussion. No rhonchi Cardiac-regular rate and rhythm, normal S1 and S2. Occasional premature beats Abdomen-normal bowel sounds, nontender, no hepatosplenomegaly Extremities-no cyanosis, clubbing, or edema Neuro-cranial nerves II through XII intact, motor and sensory function within normal limits, strength symmetrical with mild generalized weakness, no focal deficits Psych-normal affect Discharge Data Allergies Allergy/AdvReac Type Severity Reaction Status Date / Time oxycodone Allergy Severe HALLUCINATI Verified 10/23/21 09:34 ONS TASHA Inhibitors AdvReac Intermediate Cough Verified 10/23/21 09:34 rosuvastatin AdvReac Intermediate CONSTIPATIO Verified 10/23/21 09:34 N niacin AdvReac Mild FLUSHING Verified 10/23/21 09:34 paroxetine AdvReac Mild drowsiness Verified 10/23/21 09:34 Consultations 03/01/23 15:34 ED Decision to Admit Stat Hospital Course (1) COVID: COVID nasal swab positivity. He may have a viral syndrome but I doubt if he has any viral pneumonia. Treated while hospitalized with vitamin C and vitamin D along with parenteral steroid therapy. Remdesivir has been discontinued. He will continue vitamin D at discharge (2) Atrial fibrillation: Rate control. Continue warfarin, metoprolol, digoxin. Daily PT/INR (3) Acute respiratory failure with hypoxia: Resolved. Oxygen has been weaned off (4) Chronic systolic heart failure: This actually appears to be acute on chronic systolic heart failure on admission. Treated while hospitalized with parenteral Lasix. Cardiac echo to report noted. I question the validity of the ejection fraction estimation. He has inferior lateral hypokinesis which is likely results in reduced ejection fraction. EF was 35% on previous echo. Continue to monitor intake and output. Repeat chest x-ray done on March 04 looks better. Home Lasix dosage has been uptitrated. Continue Entresto (5) Elevated troponin: Mild elevation. No chest pain. No evidence of acute coronary syndrome. Telemetry. (6) Hypotension: Transient in the ED. Now resolved. Entresto has been restarted and is well- tolerated so far (7) Dementia: Supportive care . Continue Aricept and Namenda (8) BPH (benign prostatic hyperplasia): Stable. Continue finasteride (9) Hyperlipidemia: Stable. Continue atorvastatin (10) LOIS (obstructive sleep apnea): Stable. CPAP/BiPAP at bedtime Plan He is medically stable for return to [facility]. Hopefully today, March 05. Total Time Total Time Spent Total Time Spent (In Minutes): 40 minutes Discharge Plan Discharge Items Patient Disposition: Personal Correction Reason For Visit: COVID Discharge Diagnosis: Acute on chronic systolic congestive heart failure, acute hypoxic respiratory failure, viral syndrome, COVID positivity by nasal swab Activity: Resume your previous activity Non-emergency contact: Primary Care Provider Call non-emergency contact if: you have any medication questions and your symptoms worsen [facility] - Diet: Regular and Heart Healthy Addtl Attending Provider Instructions: Lasix dosage has been increased to 40 mg twice daily. Continue vitamin D 5000 units daily Pending Studies at Discharge: No Stand-Alone Forms: My Z[employer], Smoking Cessation Skilled Items Patient informed of condition?: Yes DNR: Yes Discharge Level of Care: Other Communicable Disease: No Discharge Prognosis: Stable Lines: None Urinary Catheter: No Medications and DC Order Prescriptions: New furosemide 40 mg Tablet 40 mg PO BID17 Qty: 60 0RF cholecalciferol (vitamin D3) 125 mcg (5,000 unit) Tablet 5,000 unit PO QAM Qty: 0 0RF Continued loratadine 10 mg tablet 10 mg PO DAILY isosorbide mononitrate 60 mg Tablet Extended Release 24 Hr 60 mg PO HS pantoprazole 40 mg Tablet,Delayed Release (Dr/Ec) 40 mg PO QAM atorvastatin 40 mg tablet 40 mg PO DAILY gabapentin 300 mg capsule 300 mg PO TID Rx Instructions: Morning, Mid day, and bed time. aspirin 81 mg Tablet,Delayed Release (Dr/Ec) 81 mg PO DAILY Glucosamine Chondroitin 550-30-1 mg Capsule 3 cap PO BID multivitamin [Daily-Selena] Tablet 1 tab PO DAILY warfarin 4 mg tablet 4 mg PO DAILY PreserVision AREDS-2 250-90-40-1 mg Capsule 1 tab PO DAILY CoQ-10 1 tab PO DAILY Vitamin D3 1 tab PO DAILY donepezil 10 mg tablet 10 mg PO HS alendronate 70 mg tablet 70 mg PO .EVERY FRIDAY digoxin 125 mcg (0.125 mg) tablet 125 mcg PO DAILY tramadol 50 mg tablet 75 - 125 mg PO Q4 PRN (Reason: Pain) finasteride 5 mg tablet 5 mg PO DAILY melatonin 3 mg Tablet 3 mg PO HS PRN (Reason: Sleep) metoprolol succinate 100 mg tablet extended release 24 hr 50 mg PO BID diclofenac sodium 1 % Gel 2 g TOPICAL TID Rx Instructions: apply to affected area 0600,1400,2000 Entresto 24-26 mg tablet 1 tab PO BID Rx Instructions: hold for BP<90 acetaminophen 500 mg Tablet 500 mg PO TID Rx Instructions: 0600,1400,2000 sertraline 25 mg tablet 25 mg PO DAILY nitroglycerin 0.4 mg Tablet, Sublingual 0.4 mg sublingual .Q 5 MIN PRN (Reason: Chest Pain) Rx Instructions: take 1 tablet under tongue every 5 min's as needed for chest pain x 3 doses, if no relief call 911 calcium carbonate [Calcium 600] 600 mg calcium (1,500 mg) Tablet 600 mg PO QDL fluticasone propionate [Flonase Allergy Relief] 50 mcg/actuation [place],Suspension 1 spray INTRANASAL BID Rx Instructions: administer into each nostril memantine [Namenda] 10 mg Tablet 10 mg PO BID Qty: 30 1RF Discontinued furosemide 40 mg tablet 40 mg PO QAM furosemide 40 mg tablet 20 mg PO QPM Discharge Orders: Discharge Order (Routine); Ordered 03/05/23 Ordered By: Dalton Thompson Admission Data Admit Date/Time: 03/01/23 16:57 Attending Provider: Dalton Thompson Admit Provider: Domo Goel [facility] Other Providers: Domo Goel Other Interventions: Discharge Summary Assessment (RN) Last Done: 03/05/23 12:18 Coding Level of Care Code 32591 INP/OBS DISCH >30 MIN Diagnoses COVID U07.1 Atrial fibrillation I48.91 Atrial fibrillation type: unspecified Acute respiratory failure with hypoxia J96.01 Chronic systolic heart failure I50.22 Elevated troponin R77.8 Hypotension I95.9 Dementia F03.90 BPH (benign prostatic hyperplasia) N40.0 Hyperlipidemia E78.5 Hyperlipidemia type: unspecified LOIS (obstructive sleep apnea) G47.33
== END 2023-03-05 16:16 | disposition home or self-care (01) | DRG 177 ==
LOC: ED 13:34 → SUATTDRO 16:57 → EDINP 16:57 → 2S 03-02 06:42

== ENCOUNTER 2023-11-05 09:36 | Inpatient (IN) ==
--- NOTE | 2023-11-05 09:54 | Emergency Department Note ---
Impression & Plan Bilateral pneumonia, Elevated BUN ED Provider Note NAME: HORTENSIA HOLDER AGE: 88 SEX: M : 1935 ARRIVES VIA: Ambulance INFORMANT: Patient ED PROVIDER(S): Sajan Miranda DO CHIEF COMPLAINT: Abdominal pain and weakness HPI: Patient is an 88-year-old male with a past medical history of ischemic cardiomyopathy, pacemaker, failure to thrive, CKD, CHF who presents to the ER for abdominal pain. He denies any previous abdominal surgeries. He admits to pain across the lower belly. Sharp and stabbing. Started yesterday and has gotten worse. No vomiting. Last bowel movement was yesterday. He admits to burning with urination. Per EMS he had some really dark urine earlier today. They note otherwise has been acting normally. Additional history was obtained from daughter who was present at bedside and notes that he had a headache yesterday and today has been lethargic complaining of belly pain. ADDITIONAL HISTORY OBTAINED: Additional history obtained from daughter who was present at bedside who notes that he had a headache off and on this week. Chronic Medical/Social Conditions Affecting Care: Per HPI PAST MEDICAL HISTORY:See Below PAST SURGICAL HISTORY:See Below FAMILY HISTORY:See Below SOCIAL HISTORY:See Below HOME MEDICATIONS:See Below ALLERGIES:See Below VITALS:See Below PHYSICAL EXAMINATION: GENERAL: Sitting up in bed, alert, well appearing, well nourished, no distress, non-toxic EYE EXAM: normal conjunctiva. OROPHARYNX: mucous membranes are moist NECK: supple, no nuchal rigidity, no adenopathy, non-tender LUNGS: Clear to auscultation. Normal chest wall mechanics HEART: no murmurs, S1 normal and S2 normal ABDOMEN: abdomen soft, non-tender, normo-active bowel sounds, no masses, no rebound or guarding. UPPER EXTREMITIES: upper extremities are grossly normal. LOWER EXTREMITIES: No pitting edema. NEURO EXAM: Awake alert following commands moving all extremities, cranial nerves II-XII grossly intact, normal speech, no gross weakness of arms, no gross weakness of legs. MEDICAL DECISION MAKING: Patient is an 88-year-old male who presents the ER for weakness associated with belly pain and head pain. IV was established blood work was obtained. He had no head pain upon arrival. Does have some subtle paraspinal tenderness which is. Be muscular. IV was established blood work is obtained. Labs show no significant leukocytosis or anemia. BMP with slightly elevated BUN. LFTs bilirubin were unremarkable. Lipase was normal. UA pending upon admission. CT of the head per my preliminary interpretation showed no obvious large bleed. CT abdomen pelvis suggest pneumonia. Patient was given IV Rocephin and azithromycin. Patient was updated bedside. Patient was admitted for further workup after discussion with the hospitalist. Consults/Care Managements Discussions: Per [facility] Triage Nursing notes reviewed. Limited review of prior medical records performed Vital Signs: reviewed and remarkable for no significant abnormalities Differential diagnosis: Differential diagnoses includes but is not limited to gastritis, peptic ulcer disease, GERD, gallbladder disease, pancreatitis, small bowel obstruction, appendicitis, diverticulitis, hernia, urinary tract infection, torsion, perforation, trauma, infectious. ER treatment provided: See below Diagnostics interpreted by me include EKG and cardiac monitoring as listed below: -Cardiac Monitoring: An order was placed for continuous cardiac monitoring. The monitor shows a rate of 70 with paced rhythm. -ECG: none -Laboratory studies:Interpreted by me as stated above in MDM and shown below. Imaging studies: Xrays: As interpreted by me:none CTs show: CT abdomen pelvis shows bilateral pneumonia CT of the head per my preliminary interpretation showed no obvious large bleed Procedures:none Critical Care: None Past Med/Surg History Problem List (Updated 11/05/23 @ 13:55 by Sajan Miranda DO) Elevated BUN (Acute) Bilateral pneumonia (Acute) Acute respiratory failure with hypoxia Hypoxia (Acute) Hypotension Elevated troponin COVID (Acute) Adult failure to thrive (Acute) Generalized weakness (Acute) Recurrent falls (Acute) Diffuse abdominal pain (Acute) Weakness Nocturnal hypoxemia Sensorineural hearing loss (SNHL) of both ears Pacemaker Medtronic, generator change 10/05/19 at [facility]. Medtronic. Last interrogation 02/02/20. Ischemic cardiomyopathy S/P BiV pacer (NOT defibfillator) 2012, with generator change 10/2019 at [facility]. 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 No significant prosthesis stenosis or regurg on 12/2019 echo. Severe mitral regurgitation with eccentric jet posteriorly directed. CAD (coronary artery disease) Remote NM 1983 with CABG x 2 (BELLAMY-LAD, SVG-RCA). 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 Follows with [facility] cardiology. Chronic kidney disease (CKD), stage II (mild) Hypertension Chronic systolic heart failure Secondary hyperparathyroidism Raynaud's disease Moderate obstructive sleep apnea Polycythemia Aortic stenosis Elevated prostate specific antigen (PSA) Vasomotor rhinitis (Acute) Spinal stenosis (Acute) Restless leg syndrome (Acute) Osteopenia (Acute) Nasal polyp (Acute) Insomnia (Acute) Hearing loss (Acute) Gout (Acute) Chronic reflux esophagitis (Acute) Anticoagulant long-term use Symptomatic bradycardia Hernia, inguinal, left Status post placement of cardiac pacemaker (~2013) 2014, [employer] - [place] [facility] [place]2018 AND NEXT CHECK WILL BE 10/2018 Mitral valve disorder Medical History LOIS (obstructive sleep apnea) Dementia YEMI (acute kidney injury) Ventricular tachycardia Epistaxis Elevated troponin Hypoxia Congestive heart failure, NYHA class III Hospitalization 10/2017, 02/2018 for acute on chronic CHF COPD (chronic obstructive pulmonary disease) Pulmonary fibrosis Sleep apnea WITH CPAP Arthritis BPH (benign prostatic hyperplasia) Ischemic cardiomyopathy S/P BiV pacer (NOT defibfillator) 2012, with generator change 10/2019 at [facility]. Most recent echo showed EF 50% (12/13/19) Mitral valve disorder Chronic kidney disease (CKD), stage II (mild) Valvular heart disease S/P TAVR 07/28/18. No significant prosthesis stenosis or regurg on 12/2019 echo. Severe mitral regurgitation with eccentric jet posteriorly directed. Atrial fibrillation Hyperlipidemia Pacemaker Medtronic, generator change 10/05/19 at [facility]. [employer]. Last interrogation 02/02/20. CAD (coronary artery disease) Remote NM 1983 with CABG x 2 (BELLAMY-LAD, SVG-RCA). 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 Follows with [facility] cardiology. History of TIA (transient ischemic attack) OVER 5 YEARS AGO AND NO RESIDUAL EFFECTS Hx of myocardial infarction 1983 AND HAD CABG X2 Surgical History S/P left inguinal hernia repair (04/04/20) Open Sliding indirect Left Inguinal Hernia Repair, Direct weakness,with Mesh Placement, Excision Lipoma of Cord Dr. Morataya 04/04/2020 History of repair of inguinal hernia (11/06/18) Incarcerated right inguinal hernia repair and femoral hernia repair 11/06/18 Dr. Cho H/O carotid endarterectomy (~1997) 1997 on right Hx of aortic valve replacement (~05/2018) [facility] 05/2018 Status post right knee replacement S/P hernia repair RIGHT INGUINAL HERNIA REPAIR Status post placement of cardiac pacemaker (~2013) 2013, [employer] - FOLLOWS WITH [facility] LAST CHECK 05/2018 AND NEXT CHECK WILL BE 10/2018 Colonoscopy (08/25/12) History of coronary artery bypass graft x 2 (~1983) 1983 - FOLLOWS WITH [facility] Stented coronary artery (~2014) 2014 ONE STENT WAS PLACED AND FOLLOWS WITH [facility] Family History Other Heart disease Social History Smoking Status: Former smoker Tobacco Type: Cigarettes Second Hand Exposure: No; Do You Dip or Chew Tobacco: No; Hx Alcohol Use: No Hx Substance Use: No Preferred Language: Rwandan Communication Ability: Effective Hide Inspector Required: No Beliefs That Will Affect Care: None Current Living Situation: Personal Care Facility Current Living Situation Comment: [facility] current occupational status: retired Feels Safe at Home: Yes Assistive Devices: Cane and Walker Allergies Allergies Allergy/AdvReac Type Severity Reaction Status Date / Time oxycodone Allergy Severe HALLUCINATI Verified 03/07/23 16:15 ONS TASHA Inhibitors AdvReac Intermediate Cough Verified 03/07/23 16:15 rosuvastatin AdvReac Intermediate CONSTIPATIO Verified 03/07/23 16:15 N niacin AdvReac Mild FLUSHING Verified 03/07/23 16:15 paroxetine AdvReac Mild drowsiness Verified 03/07/23 16:15 Home Meds Home Medications Medication Instructions Recorded Confirmed isosorbide mononitrate 60 mg 60 mg PO HS 02/10/18 11/05/23 tablet,extended release 24 hr pantoprazole 40 mg tablet,delayed 40 mg PO QAM 02/10/18 11/05/23 release loratadine 10 mg tablet 10 mg PO DAILY 12/04/18 11/05/23 atorvastatin 40 mg tablet 40 mg PO DAILY 10/09/20 11/05/23 gabapentin 300 mg capsule 300 mg PO TID 10/09/20 11/05/23 aspirin 81 mg tablet,delayed 81 mg PO DAILY 11/10/20 11/05/23 release acetaminophen 500 mg tablet 1,000 mg PO BID 03/01/23 11/05/23 alendronate 70 mg tablet 70 mg PO WK 03/01/23 11/05/23 calcium carbonate (Calcium 600) 600 mg PO QDL 03/01/23 11/05/23 diclofenac sodium 1 % topical gel 2 g topical TID pain 03/01/23 11/05/23 digoxin 125 mcg (0.125 mg) tablet 125 mcg PO 5XWK 03/01/23 11/05/23 donepezil 10 mg tablet 10 mg PO HS 03/01/23 11/05/23 finasteride 5 mg tablet 5 mg PO DAILY 03/01/23 11/05/23 metoprolol succinate 100 mg 50 mg PO BID 03/01/23 11/05/23 tablet,extended release 24 hr multivitamin (Daily-Selena tablet) 1 tab PO DAILY 03/01/23 11/05/23 nitroglycerin 0.4 mg sublingual 0.4 mg sublingual .Q 5 MIN PRN 03/01/23 11/05/23 tablet Chest Pain sacubitril 24 mg-valsartan 26 mg 1 tab PO BID 03/01/23 11/05/23 tablet (Entresto) sertraline 25 mg tablet 25 mg PO DAILY 03/01/23 11/05/23 tramadol 50 mg tablet 75 - 125 mg PO Q4 PRN Pain 03/01/23 11/05/23 vit C 250 mg-vit E 90 mg-zinc 40 1 tab PO DAILY 03/01/23 11/05/23 mg-copper 1 [id number] capsule (PreserVision AREDS-2) Gluco/Chond/Msm/Turm 3 tab PO BID 11/05/23 11/05/23 Menthol 4% Topical Analgesic See Rx Instructions .Route 11/05/23 11/05/23 .COMPLEX PRN Pain cholecalciferol (vitamin D3) 125 125 mcg PO DAILY 11/05/23 11/05/23 mcg (5,000 unit) capsule coenzyme Q10 200 mg capsule (Co 200 mg PO DAILY 11/05/23 11/05/23 Q-10) diphenhydramine 25 2 tab PO HS 07/03/24 07/03/24 mg-acetaminophen 500 mg tablet (Tylenol PM Extra Strength) furosemide 40 mg tablet 40 mg PO 3XWK 11/05/23 11/05/23 warfarin 3 mg tablet 3 mg PO DAILY 11/05/23 11/05/23 Previous Rx's Medication Instructions Recorded memantine 10 mg tablet (Namenda) 10 mg PO BID #30 tabs 02/12/22 Results & Data (ED) Vital Signs Vital Signs - 24 hr 11/05/23 09:44 11/05/23 09:48 11/05/23 09:48 Temperature 36.4 C L Temperature Source Oral Pulse Rate 72 74 Pulse Rate [Apical] Pulse Strength [Apical] Respiratory Rate 18 20 Respiratory Effort / Characteristics Non-Labored Spontaneous Non-Labored Respiratory Depth Normal Normal Respiratory Pattern Regular Blood Pressure 125/69 Blood Pressure [Left Arm] Blood Pressure Mean 87 Blood Pressure Mean [Left Arm] Blood Pressure Position Sitting Pulse Oximetry 98 Oxygen Delivery Method Room Air Sepsis Recent Fever Within 48 Hours No Sepsis New/Unexplained Change in Mental Status No Sepsis Action Taken by Nursing No Action Required 11/05/23 11:16 11/05/23 13:15 11/05/23 13:16 Temperature Temperature Source Pulse Rate 72 Pulse Rate [Apical] 70 70 Pulse Strength [Apical] Normal Respiratory Rate 18 19 Respiratory Effort / Characteristics Non-Labored Spontaneous Non-Labored Spontaneous Respiratory Depth Normal Normal Respiratory Pattern Regular Blood Pressure Blood Pressure [Left Arm] 124/53 L 129/66 Blood Pressure Mean Blood Pressure Mean [Left Arm] 76 87 Blood Pressure Position Pulse Oximetry 97 98 Oxygen Delivery Method Room Air Room Air Sepsis Recent Fever Within 48 Hours Sepsis New/Unexplained Change in Mental Status Sepsis Action Taken by Nursing Laboratory Data 11/05/23 09:44 11/05/23 09:44 Lab Results 11/05/23 Range/Units 09:44 WBC 7.20 (4.8-10.8) K/ul RBC 4.45 L (4.70-6.10) M/uL Hgb 14.4 (14.0-18.0) g/dl Hct 44.1 (42.0-52.0) % MCV 99.1 (80.0-100.0) fL MCH 32.4 (25.0-34.0) pg MCHC 32.7 (32.0-36.0) g/dL RDW Std Deviation 58.7 H (36.4-46.3) fL RDW Coeff of Sawyer 16.1 H (11.5-14.5) % Plt Count 198 (130-400) K/uL MPV 9.7 (9.4-12.4) fL Immature Gran % (Auto) 0.4 % Neut % (Auto) 56.6 % Lymph % (Auto) 20.8 % Churchill % (Auto) 7.4 % Eos % (Auto) 13.8 % Baso % (Auto) 1.0 % Neut # (Auto) 4.08 (1.40-6.50) K/uL Lymph # (Auto) 1.50 (1.20-3.40) K/uL Churchill # (Auto) 0.53 (0.11-0.59) K/uL Eos # (Auto) 0.99 H (0.00-0.50) K/uL Baso # (Auto) 0.07 (0.00-0.20) K/uL Immature Gran # (Auto) 0.03 (0.01-0.20) K/uL Sodium 137 (136-145) mmol/L Potassium 4.8 (3.5-5.1) mmol/L Chloride 107 (98-107) mmol/L Carbon Dioxide 24 (21-32) mmol/L Anion Gap 6 (3-11) BUN 27 H (6-23) mg/dl Creatinine 1.38 (0.6-1.4) mg/dl Est Cr Clr Drug Dosing 33.4 ml/min Est GFR ( Amer) 52.5 ml/min Est GFR (Non-Af Amer) 45.3 ml/min BUN/Creatinine Ratio 19.6 (10-20) Glucose 93 (70-99(Fasting)) mg/dl Calcium 8.7 (8.6-10.3) mg/dl Total Bilirubin 0.7 (0.2-1.0) mg/dl AST 19 (13-39) U/L ALT 12 (7-52) U/L Alkaline Phosphatase 52 (34-104) U/L Total Protein 7.7 (6.0-8.3) gm/dl Albumin 3.7 (3.4-5.0) gm/dl Globulin 4.0 (2.5-4.0) gm/dl Albumin/Globulin Ratio 0.9 (0.9-2) Lipase 28 (11-82) U/L Administered Medications Azithromycin 500 mg/ Dextrose 255 mls @ 125 mls/hr IV NOW ONE Stop: 11/05/23 14:56 Last Admin: 11/05/23 13:36 Dose: 125 mls/hr Documented By: FABIOLA Discontinued Medications Sodium Chloride (Nss) 1,000 mls @ 999 mls/hr IV .Q1H1M ONE Stop: 11/05/23 10:51 Last Infusion: 11/05/23 11:12 Dose: Infused Documented By: Admin: 11/05/23 10:00 Dose: 999 mls/hr Documented By: FABIOLA Ceftriaxone Sodium (Rocephin) 2,000 mg in 50 mls @ 100 mls/hr IV NOW STA Stop: 11/05/23 13:23 Last Infusion: 11/05/23 13:37 Dose: Infused Documented By: Admin: 11/05/23 13:14 Dose: 100 mls/hr Documented By: PEDRO Ioversol (Optiray 320 100ml) 93 ml IV ONCE ONE Stop: 11/05/23 11:13 Last Admin: 11/05/23 11:12 Dose: 93 ml Documented By: AIMEE Imaging Data Radiologist's Impression: Abdomen/Pelvis CT 11/05/23 09:[address] WITH IV CONTRAST CT DOSE: HISTORY: Generalized abdominal pain. TECHNIQUE: Multiaxial CT images of the abdomen and pelvis were performed following the use of intravenous contrast. A dose lowering technique was utilized adhering to the principles of ALARA. COMPARISON STUDY: Abdomen and pelvis CT 02/05/2022. FINDINGS: Stable 9 mm right middle lobe pulmonary nodule. Progressive patchy bibasilar airspace opacities likely representing a pneumonia. Trace bilateral pleural effusions. No pneumoperitoneum. No pneumatosis. No acute fractures identified. Multiple chronic compression deformities again noted within the thoracic and lumbar spine. The heart remains enlarged. Aortic valve prosthesis is again noted. Pacemaker wires are present. There are poststernotomy changes. Evidence for prior right inguinal hernia repair. There are few small gallstones. No gallbladder wall thickening. No hepatic or splenic masses. The adrenal glands unremarkable. The pancreas enhances normally. Stable prominence of the main pancreatic duct measuring up to 3.5 mm. Chronic cortical renal atrophy again noted. There are few stable bilateral renal lesions again noted. These likely represent a combination of simple and hemorrhagic cysts. The main portal vein is patent. No retroperitoneal lymphadenopathy. Moderate calcified plaque within the ectatic abdominal aorta measures up to 2.6 cm in diameter. No pelvic lymphadenopathy or pelvic free fluid. The prostate gland is enlarged. This likely accounts for the mild bladder wall thickening. Extensive colonic diverticulosis. No evidence for acute diverticulitis. No bowel wall thickening or obstruction. Subcarinal and bilateral hilar lymphadenopathy has slightly progressed. IMPRESSION: 1. Progressive patchy bibasilar airspace opacities. This likely represents a pneumonia. Pulmonary edema could also a similar appearance. 2. Trace bilateral pleural effusions and cardiomegaly. 3. Mild progression of the subcarinal and bilateral hilar lymphadenopathy. 4. Stable 9 mm right middle lobe pulmonary nodule. 5. No bowel wall thickening or obstruction. 6. Additional findings as described above. ACT 112: Negative or not required by law. Electronically signed by: Sukhi Moscoso M.D. 11/05/2023 12:42 PM Discharge Plan Visit Data Chief Complaint: Abdominal Pain ED Provider: Sajan Miranda Discharge Problem: Bilateral pneumonia, Elevated BUN Forms Stand Alone Forms: My [facility] Prescriptions Prescriptions: No Action loratadine 10 mg tablet 10 mg PO DAILY isosorbide mononitrate 60 mg Tablet Extended Release 24 Hr 60 mg PO HS pantoprazole 40 mg Tablet,Delayed Release (Dr/Ec) 40 mg PO QAM atorvastatin 40 mg tablet 40 mg PO DAILY gabapentin 300 mg capsule 300 mg PO TID Rx Instructions: Morning, Mid day, and bed time. aspirin 81 mg Tablet,Delayed Release (Dr/Ec) 81 mg PO DAILY multivitamin [Daily-Selena] Tablet 1 tab PO DAILY PreserVision AREDS-2 250-90-40-1 mg Capsule 1 tab PO DAILY donepezil 10 mg tablet 10 mg PO HS alendronate 70 mg tablet 70 mg PO WK Rx Instructions: SUNDAYS digoxin 125 mcg (0.125 mg) tablet 125 mcg PO 5XWK Rx Instructions: On Friday, Friday, Friday, and Friday tramadol 50 mg tablet 75 - 125 mg PO Q4 PRN (Reason: Pain) finasteride 5 mg tablet 5 mg PO DAILY metoprolol succinate 100 mg tablet extended release 24 hr 50 mg PO BID Rx Instructions: HOLD FOR SBP <90 diclofenac sodium 1 % Gel 2 g TOPICAL TID Rx Instructions: apply to affected area 0600,1400,2000 Entresto 24-26 mg tablet 1 tab PO BID Rx Instructions: hold for BP<90 acetaminophen 500 mg Tablet 1,000 mg PO BID Rx Instructions: at 6AM and 2PM for pain. *Max 3gms APAP in 24 hours* sertraline 25 mg tablet 25 mg PO DAILY nitroglycerin 0.4 mg Tablet, Sublingual 0.4 mg sublingual .Q 5 MIN PRN (Reason: Chest Pain) Rx Instructions: take 1 tablet under tongue every 5 min's as needed for chest pain x 3 doses, if no relief call 911 calcium carbonate [Calcium 600] 600 mg calcium (1,500 mg) Tablet 600 mg PO QDL memantine [Namenda] 10 mg Tablet 10 mg PO BID Qty: 30 1RF warfarin 3 mg tablet 3 mg PO DAILY Tylenol PM Extra Strength 25-500 mg Tablet 2 tab PO HS cholecalciferol (vitamin D3) 125 mcg (5,000 unit) Capsule 125 mcg PO DAILY coenzyme Q10 [Co Q-10] 200 mg Capsule 200 mg PO DAILY Gluco/Chond/Msm/Turm tablet 3 tab PO BID Menthol 4% Topical Analgesic See Rx Instructions .ROUTE .COMPLEX PRN (Reason: Pain) Rx Instructions: Use as directed as needed for muscle pain furosemide 40 mg tablet 40 mg PO 3XWK Rx Instructions: On Friday, Friday and Friday Referrals [facility] - Discharge Problem: Bilateral pneumonia Qualifiers: Pneumonia type: due to unspecified organism Lung location: unspecified part of lung Qualified Code(s): J18.9 - Pneumonia, unspecified organism
[2023-11-05] MEDS: SODIUM CHLORIDE 0.9% 1,000 ML IV ONE (10:00)
[2023-11-05 10:20] LABS: Basophils # (auto) 0.07 K/uL (0.00-0.20); Eosinophils # (auto) 0.99 K/uL (0.00-0.50); Eosinophils % (auto) 13.8 %; Hematocrit (blood only) 44.1 % (42.0-52.0); Hemoglobin 14.4 g/dl (14.0-18.0); Immature Granulocytes # (auto) 0.03 K/uL (0.01-0.20); Immature Granulocytes % (auto) 0.4 %; Lymphocytes % (auto) 20.8 %; Mean Corpuscular Hemoglobin 32.4 pg (25.0-34.0); Mean Corpuscular Hgb Conc 32.7 g/dL (32.0-36.0); Mean Corpuscular Volume 99.1 fL (80.0-100.0); Mean Platelet Volume 9.7 fL (9.4-12.4); Monocytes # (auto) 0.53 K/uL (0.11-0.59); Monocytes % (auto) 7.4 %; Neutrophils # (auto) 4.08 K/uL (1.40-6.50); Neutrophils % (auto) 56.6 %; Platelet Count 198 K/uL (130-400); RDW Coefficient of Variation 16.1 % (11.5-14.5); RDW Standard Deviation 58.7 fL (36.4-46.3); Red Blood Count 4.45 M/uL (4.70-6.10)
[2023-11-05 10:29] LABS: Albumin Globulin Ratio 0.9 (0.9-2); Albumin Level 3.7 gm/dl (3.4-5.0); BUN Creatinine Ratio 19.6 (10-20); Bilirubin,Total 0.7 mg/dl (0.2-1.0); Calcium 8.7 mg/dl (8.6-10.3); Creatinine Clr Calc Pharmacy 33.4 ml/min; Est GFR (African American) 52.5 ml/min; Est GFR (Non-African American) 45.3 ml/min; Potassium 4.8 mmol/L (3.5-5.1); Total Protein 7.7 gm/dl (6.0-8.3)
[2023-11-05] MEDS: OPTIRAY 320 100ml IV ONE (11:12)
--- NOTE | 2023-11-05 12:44 | CT Scan Report ---
ABDOMEN AND PELVIS CT WITH IV CONTRAST CT DOSE: HISTORY: Generalized abdominal pain. TECHNIQUE: Multiaxial CT images of the abdomen and pelvis were performed following the use of intrave nous contrast. A dose lowering technique was utilized adhering to the principles of ALARA. COMPARISON STUDY: Abdomen and pelvis CT 02/05/2022. FINDINGS: Stable 9 mm right middle lobe pulmonary nodule. Progressive patchy bibasilar airspace opaci ties likely representing a pneumonia. Trace bilateral pleural effusions. No pneumoperitoneum. No pneu matosis. No acute fractures identified. Multiple chronic compression deformities again noted within t he thoracic and lumbar spine. The heart remains enlarged. Aortic valve prosthesis is again noted. Pac emaker wires are present. There are poststernotomy changes. Evidence for prior right inguinal hernia repair. There are few small gallstones. No gallbladder wall thickening. No hepatic or splenic masses. The adrenal glands unremarkable. The pancreas enhances normally. Stable prominence of the main pancr eatic duct measuring up to 3.5 mm. Chronic cortical renal atrophy again noted. There are few stable b ilateral renal lesions again noted. These likely represent a combination of simple and hemorrhagic cy sts. The main portal vein is patent. No retroperitoneal lymphadenopathy. Moderate calcified plaque wi thin the ectatic abdominal aorta measures up to 2.6 cm in diameter. No pelvic lymphadenopathy or pelv ic free fluid. The prostate gland is enlarged. This likely accounts for the mild bladder wall thicken ing. Extensive colonic diverticulosis. No evidence for acute diverticulitis. No bowel wall thickening or obstruction. Subcarinal and bilateral hilar lymphadenopathy has slightly progressed. IMPRESSION: 1. Progressive patchy bibasilar airspace opacities. This likely represents a pneumonia. Pulmonary anastacio ma could also a similar appearance. 2. Trace bilateral pleural effusions and cardiomegaly. 3. Mild progression of the subcarinal and bilateral hilar lymphadenopathy. 4. Stable 9 mm right middle lobe pulmonary nodule. 5. No bowel wall thickening or obstruction. 6. Additional findings as described above. ACT 112: Negative or not required by law. Electronically signed by: Sukhi Moscoso M.D. 11/05/2023 12:42 PM
[2023-11-05] MEDS: cefTRIAXone SODIUM 2,000 MG/50 ML BAG IV STA (13:14)
--- NOTE | 2023-11-05 13:31 | History & Physical Report ---
Date of Service November 05, 2023 Assessment & Plan (1) Generalized weakness: (2) Bilateral pneumonia: Plan: Patient is 88 year old male with PMH chronic atrial fibrillation, history of ischemic cardiomyopathy, pacemaker in place, CAD s/p CABG, HTN, HLD, pulmonary f ibrosis, COPD, dementia, BPH, arthritis, LOIS, CKD III, and others listed below presented to ER with c/o lower abdominal discomfort x 1 day. Denies fever/chills, vomiting, diarrhea, CP, SOB. chronic cough. In ER afebrile, vitals stabe. No Leukocytosis, lactate procalcitonin WNL, BNP: 666. INR therapeutic. [employer] respiratory panel negative CT abdomen pelvis: Progressive patchy bibasilar airspace opacities. This likely represents a pneumonia. Pulmonary edema could also a similar appearance. Trace bilateral pleural effusions and cardiomegaly. Mild progression of the subcarinal and bilateral hilar lymphadenopathy. Stable 9 mm right middle lobe pulmonary nodule. In ER given 1 L NSS, Rocephin, azithromycin Likely pneumonia vs pulmonary edema. Possible aspiration Cefepime, doxycycline to cover for possible aspiration, atypical Will hold on additional IVF at this time CT chest pending Will plan to resume home lasix MWF schedule but closely monitor volume status after IVF were given and may require diuresis or further adjustment Aspiration precautions Speech eval CBC, BMP in am WEAKNESS CT Head no acute findings Weakness may be secondary to underlying infection UA pending PT/OT eval Fall precautions (3) Abdominal pain: Plan: CT Abd/pelvis: No bowel wall thickening or obstruction. Monitor (4) Neck pain: Plan: Complains of intermittent left-sided neck pain and intermittent associated headaches. Denies trauma Denies current headache. Some left posterior cervical muscular tenderness to palpation Suspect musculoskeletal etiology, degenerative changes CT C-spine pending Can continue topical diclofenac and home tramadol as needed (5) Ischemic cardiomyopathy: (6) Pacemaker: (7) CAD (coronary artery disease): Plan: History CAD, history MA in 1983. S/p CABG. Pacemaker in place Currently appears euvolemic clinically Continue aspirin, atorvastatin, isosorbide, metoprolol succinate, Entresto, home Lasix (8) Atrial fibrillation: Plan: Anticoagulated on Coumadin INR: 3.1 Continue metoprolol succinate, digoxin Hold Coumadin today and repeat INR tomorrow for further dosing (9) CKD (chronic kidney disease), stage III: Plan: Cr: 1.38. Is at baseline Monitor renal functions (10) Hypertension: Plan: Continue isosorbide, metoprolol succinate (11) Hyperlipidemia: Plan: Continue atorvastatin (12) Dementia: Plan: At baseline per daughter Continue Donepezil, memantine (13) COPD (chronic obstructive pulmonary disease): (14) Pulmonary fibrosis: Plan: History of COPD, pulmonary fibrosis per chart review (15) BPH (benign prostatic hyperplasia): Plan: Continue finasteride DVT Prophylaxis -Anticoagulated on Coumadin with therapeutic INR currently DNR/DNI as per discussion with pt Follows with Dr Conrad for routine care Pt was seen and care coordinated with Dr Higuera. See addendum I spent a total of 79 minutes reviewing notes, outpatient records, labs, medication, coordinating, documenting and providing care for this patient excluding time spent in the performance of separately billed services. History of Present Illness Chief Complaint: abdominal pain Primary Care Provider: [facility], [place] Patient is 88 year old male with PMH chronic atrial fibrillation, history of ischemic cardiomyopathy, pacemaker in place, CAD s/p CABG, HTN, HLD, pulmonary fibrosis, COPD, dementia, BPH, arthritis, LOIS, CKD III, and others listed below presented to ER with c/o lower abdominal discomfort x 1 day. History obtained from patient and assistance from patient's daughter secondary to history of dementia. Patient states this morning with discomfort across lower abdomen that is nonradiating. He thinks it may have started yesterday, patient's daughter states that he did not voice any abdominal complaint yesterday. She states assisted living facility said that patient has been more fatigued and seemed more weak today and reported that patient reported some dysuria to them this morning. Currently patient is denying any dysuria and just states he had "discomfort" to the lower abdomen. He denies any nausea or vomiting. He reports he has been eating and drinking normally. He states last bowel movement was yesterday. Denies any noted melena, hematochezia. Daughter states in past patient was told he should have thickened liquids however patient chooses to not have liquids thickened. She notes for years patient seems to clear his throat and sometimes cough after drinking liquids. Denies any noted choking on food. Reports chronic nonproductive cough. Has not noticed any increased cough or sputum production. Patient and daughter state for the past month patient has been having intermittent left neck pain and headaches. States this morning patient complaining of headache. Currently patient denies any headache but reports some discomfort to left lateral neck with movement of his head. Denies any upper extremity paresthesias or weakness. Denies any recent fall or known injury. Patient has wheeled walker with seat that he sometimes uses. Denies fever/chills, diaphoresis, dizziness, syncope, vision changes, CP, SOB, orthopnea, palpitations, hemoptysis, sore throat, otalgia, rhinorrhea, extremity edema, rashes, hematuria, urinary frequency. Allergies Allergy/AdvReac Type Severity Reaction Status Date / Time oxycodone Allergy Severe HALLUCINATI Verified 03/07/23 16:15 ONS TASHA Inhibitors AdvReac Intermediate Cough Verified 03/07/23 16:15 rosuvastatin AdvReac Intermediate CONSTIPATIO Verified 03/07/23 16:15 N niacin AdvReac Mild FLUSHING Verified 03/07/23 16:15 paroxetine AdvReac Mild drowsiness Verified 03/07/23 16:15 Home Medications Medication Instructions Recorded Confirmed Type isosorbide mononitrate 60 mg 60 mg PO HS 02/10/18 11/05/23 History tablet,extended release 24 hr pantoprazole 40 mg tablet,delayed 40 mg PO QAM 02/10/18 11/05/23 History release loratadine 10 mg tablet 10 mg PO DAILY 12/04/18 11/05/23 History atorvastatin 40 mg tablet 40 mg PO DAILY 10/09/20 11/05/23 History gabapentin 300 mg capsule 300 mg PO TID 10/09/20 11/05/23 History aspirin 81 mg tablet,delayed 81 mg PO DAILY 11/10/20 11/05/23 History release memantine 10 mg tablet (Namenda) 10 mg PO BID #30 tabs 02/12/22 11/05/23 Rx acetaminophen 500 mg tablet 1,000 mg PO BID 03/01/23 11/05/23 History alendronate 70 mg tablet 70 mg PO WK 03/01/23 11/05/23 History calcium carbonate (Calcium 600) 600 mg PO QDL 03/01/23 11/05/23 History diclofenac sodium 1 % topical gel 2 g topical TID pain 03/01/23 11/05/23 History digoxin 125 mcg (0.125 mg) tablet 125 mcg PO 5XWK 03/01/23 11/05/23 History donepezil 10 mg tablet 10 mg PO HS 03/01/23 11/05/23 History finasteride 5 mg tablet 5 mg PO DAILY 03/01/23 11/05/23 History metoprolol succinate 100 mg 50 mg PO BID 03/01/23 11/05/23 History tablet,extended release 24 hr multivitamin (Daily-Selena tablet) 1 tab PO DAILY 03/01/23 11/05/23 History nitroglycerin 0.4 mg sublingual 0.4 mg sublingual .Q 5 MIN PRN 03/01/23 11/05/23 History tablet Chest Pain sacubitril 24 mg-valsartan 26 mg 1 tab PO BID 03/01/23 11/05/23 History tablet (Entresto) sertraline 25 mg tablet 25 mg PO DAILY 03/01/23 11/05/23 History tramadol 50 mg tablet 75 - 125 mg PO Q4 PRN Pain 03/01/23 11/05/23 History vit C 250 mg-vit E 90 mg-zinc 40 1 tab PO DAILY 03/01/23 11/05/23 History mg-copper 1 [id number] capsule (PreserVision AREDS-2) Gluco/Chond/Msm/Turm 3 tab PO BID 11/05/23 11/05/23 History Menthol 4% Topical Analgesic See Rx Instructions .Route 11/05/23 11/05/23 History .COMPLEX PRN Pain cholecalciferol (vitamin D3) 125 125 mcg PO DAILY 11/05/23 11/05/23 History mcg (5,000 unit) capsule coenzyme Q10 200 mg capsule (Co 200 mg PO DAILY 11/05/23 11/05/23 History Q-10) diphenhydramine 25 2 tab PO HS 11/05/23 11/05/23 History mg-acetaminophen 500 mg tablet (Tylenol PM Extra Strength) furosemide 40 mg tablet 40 mg PO 3XWK 11/05/23 11/05/23 History warfarin 3 mg tablet 3 mg PO DAILY 11/05/23 11/05/23 History Past Med/Surg History Problem List (Updated 11/05/23 @ 21:57 by Nedra Jean-Baptiste PA-C) Neck pain BPH (benign prostatic hyperplasia) Pulmonary fibrosis COPD (chronic obstructive pulmonary disease) Dementia Hyperlipidemia CKD (chronic kidney disease), stage III Atrial fibrillation Abdominal pain Elevated BUN (Acute) Bilateral pneumonia (Acute) Acute respiratory failure with hypoxia Hypoxia (Acute) Hypotension Elevated troponin COVID (Acute) Adult failure to thrive (Acute) Generalized weakness (Acute) Recurrent falls (Acute) Diffuse abdominal pain (Acute) Weakness Nocturnal hypoxemia Sensorineural hearing loss (SNHL) of both ears Pacemaker Medtronic, generator change 10/05/19 at [facility]. Medtronic. Last interrogation 02/02/20. Ischemic cardiomyopathy S/P BiV pacer (NOT defibfillator) 2012, with generator change 10/2019 at [facility]. 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 No significant prosthesis stenosis or regurg on 12/2019 echo. Severe mitral regurgitation with eccentric jet posteriorly directed. CAD (coronary artery disease) Remote MA 1983 with CABG x 2 (BELLAMY-LAD, SVG-RCA). 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 Follows with [facility] cardiology. Chronic kidney disease (CKD), stage II (mild) Hypertension Chronic systolic heart failure Secondary hyperparathyroidism Raynaud's disease Moderate obstructive sleep apnea Polycythemia Aortic stenosis Elevated prostate specific antigen (PSA) Vasomotor rhinitis (Acute) Spinal stenosis (Acute) Restless leg syndrome (Acute) Osteopenia (Acute) Nasal polyp (Acute) Insomnia (Acute) Hearing loss (Acute) Gout (Acute) Chronic reflux esophagitis (Acute) Anticoagulant long-term use Symptomatic bradycardia Hernia, inguinal, left Status post placement of cardiac pacemaker (~2013) 2013, [employer] - FOLLOWS WITH [facility] LAST CHECK 05/2018 AND NEXT CHECK WILL BE 10/2018 Mitral valve disorder Medical History LOIS (obstructive sleep apnea) YEMI (acute kidney injury) Ventricular tachycardia Epistaxis Hypoxia Congestive heart failure, NYHA class III Hospitalization 10/2017, 02/2018 for acute on chronic CHF Sleep apnea WITH CPAP Arthritis History of TIA (transient ischemic attack) OVER 5 YEARS AGO AND NO RESIDUAL EFFECTS Hx of myocardial infarction 1983 AND HAD CABG X2 Surgical History S/P left inguinal hernia repair (04/04/20) Open Sliding indirect Left Inguinal Hernia Repair, Direct weakness,with Mesh Placement, Excision Lipoma of Cord Dr. [place] 04/04/2020 History of repair of inguinal hernia (11/06/18) Incarcerated right inguinal hernia repair and femoral hernia repair 11/06/18 Dr. Cho H/O carotid endarterectomy (~1997) 1998 on right Hx of aortic valve replacement (~05/2018) [facility] 05/2018 Status post right knee replacement S/P hernia repair RIGHT INGUINAL HERNIA REPAIR Colonoscopy (08/25/12) History of coronary artery bypass graft x 2 (~1983) 1983 - FOLLOWS WITH [facility] Stented coronary artery (~2014) 2014 ONE STENT WAS PLACED AND FOLLOWS WITH [facility] Family History Other Heart disease Social History Smoking Status: Former smoker Tobacco Type: Cigarettes Second Hand Exposure: No; Do You Dip or Chew Tobacco: No; Tobacco Cessation Education Requested by Patient: No Hx Alcohol Use: Yes Alcohol type: hard liquor Hx Substance Use: No Preferred Language: Romansh Communication Ability: Effective Joss House Keeper Required: No Beliefs That Will Affect Care: None Current Living Situation: Personal Care Facility Current Living Situation Comment: [facility] current occupational status: retired Other Information That Helps Us Care for You: No Feels Safe at Home: Yes Safety Concerns: Feels Safe At This Time Assistive Devices: Cane Review of Systems Review of Systems: All systems reviewed & are unremarkable except as noted in HPI & below Physical Exam Physical Exam: General: no distress, WDWN Head: normocephalic, atraumatic Eyes: conjunctiva non-injected, anicteric ENT: normal inspection external ears, nose, mucous membranes moist Neck: supple, trachea midline,+slight tender to palpation left posterior neck, ROM neck intact with some reproducible tenderness to Lungs: no respiratory distress, O2 sat 98% RA, speaking in sentences, +rales bases CV: RRR, + murmur, no JVD, no pretibial edema Abd: normal BS, soft, diffuse tenderness to palpation without rebound or guarding Ext: no cyanosis, no calf tenderness Neuro: Alert, oriented to person and place, no focal deficits noted, normal affect Skin: warm, dry Results & Data Results & Data Vital Signs (Past 12 Hours) Vital Signs Temp Pulse Pulse Resp BP BP Pulse Ox 11/05/23 13:16 70 19 129/66 98 11/05/23 13:15 72 11/05/23 11:16 70 18 124/53 L 97 11/05/23 09:48 20 11/05/23 09:48 36.4 C L 74 18 125/69 98 11/05/23 09:44 72 O2 Del Method 11/05/23 13:16 Room Air 11/05/23 13:15 11/05/23 11:16 Room Air 11/05/23 09:48 11/05/23 09:48 Room Air 11/05/23 09:44 Laboratory Results Short CBC 11/05/23 Range/Units 09:44 WBC 7.20 (4.8-10.8) K/ul Hgb 14.4 (14.0-18.0) g/dl Hct 44.1 (42.0-52.0) % Plt Count 198 (130-400) K/uL BMP 11/05/23 09:44 Sodium 137 Potassium 4.8 Chloride 107 Carbon Dioxide 24 BUN 27 H Creatinine 1.38 Glucose 93 Calcium 8.7 Liver Function 11/05/23 Range/Units 09:44 Total Bilirubin 0.7 (0.2-1.0) mg/dl AST 19 (13-39) U/L ALT 12 (7-52) U/L Alkaline Phosphatase 52 (34-104) U/L Albumin 3.7 (3.4-5.0) gm/dl Urine 11/05/23 Range/Units Unknown Urine Color Yellow Urine Appearance Clear (Clear) Urine pH 5.0 (4.5-7.5) Ur Specific [place] > 1.045 H (1.000-1.030) Urine Protein 1+ H (Negative) Urine Glucose (UA) Negative (Negative) Diagnostic Findings Abdomen/Pelvis CT 11/05/23 09:[address] WITH IV CONTRAST CT DOSE: HISTORY: Generalized abdominal pain. TECHNIQUE: Multiaxial CT images of the abdomen and pelvis were performed following the use of intravenous contrast. A dose lowering technique was utilized adhering to the principles of ALARA. COMPARISON STUDY: Abdomen and pelvis CT 02/05/2022. FINDINGS: Stable 9 mm right middle lobe pulmonary nodule. Progressive patchy bibasilar airspace opacities likely representing a pneumonia. Trace bilateral pleural effusions. No pneumoperitoneum. No pneumatosis. No acute fractures identified. Multiple chronic compression deformities again noted within the thoracic and lumbar spine. The heart remains enlarged. Aortic valve prosthesis is again noted. Pacemaker wires are present. There are poststernotomy changes. Evidence for prior right inguinal hernia repair. There are few small gallstones. No gallbladder wall thickening. No hepatic or splenic masses. The adrenal glands unremarkable. The pancreas enhances normally. Stable prominence of the main pancreatic duct measuring up to 3.5 mm. Chronic cortical renal atrophy again noted. There are few stable bilateral renal lesions again noted. These likely represent a combination of simple and hemorrhagic cysts. The main portal vein is patent. No retroperitoneal lymphadenopathy. Moderate calcified plaque within the ectatic abdominal aorta measures up to 2.6 cm in diameter. No pelvic lymphadenopathy or pelvic free fluid. The prostate gland is enlarged. This likely accounts for the mild bladder wall thickening. Extensive colonic diverticulosis. No evidence for acute diverticulitis. No bowel wall thickening or obstruction. Subcarinal and bilateral hilar lymphadenopathy has slightly progressed. IMPRESSION: 1. Progressive patchy bibasilar airspace opacities. This likely represents a pneumonia. Pulmonary edema could also a similar appearance. 2. Trace bilateral pleural effusions and cardiomegaly. 3. Mild progression of the subcarinal and bilateral hilar lymphadenopathy. 4. Stable 9 mm right middle lobe pulmonary nodule. 5. No bowel wall thickening or obstruction. 6. Additional findings as described above. ACT 112: Negative or not required by law. Electronically signed by: Sukhi Moscoso M.D. 11/05/2023 12:[address] 11/05/23 11:[address] DOSE: 1564.3 mGy.cm HISTORY: Headache. TECHNIQUE: Multiaxial CT images of the head were performed without the use of intravenous contrast. Automated exposure control was utilized for this study. A dose lowering technique was utilized adhering to the principles of ALARA. Comparison: Head CT 08/25/2023 Findings: The paranasal sinuses and mastoid air cells are clear. The calvarium and skull base are intact. There is no mass, hematoma, midline shift, acute infarct. White matter hypodensity is nonspecific but suggestive of microvascular ischemic change. The ventricles and sulci demonstrate mild age-related involutional changes. Small focus of encephalomalacia within the left occipital lobe consistent with an old infarct. This remains unchanged. Impression: No significant change compared to the prior study. No acute intracranial abnormality. ACT 112: Negative or not required by law. Electronically signed by: Sukhi Moscoso M.D. 11/05/2023 1:49 PM ECG Additional Comments: paced rhythm Supervising Physician Co-Signing Physician Notes 11/05/2023 Attending addendum: The patient was seen and examined in emergency room in the presence of the daughter He was sent in from personal intermediate with progressive weakness and tiredness without any fever and/or shortness of breath Complained of nonspecific abdominal pain at presentation to the emergency room but denied to have any symptoms during my examination On examination Lying in bed without any acute distress but looked ill Hemodynamically stable with blood pressure on the lower side at 104/51 Chest-bibasilar crackles Heart-S1-S2, 2/6 ESM over precordium Abdomen-benign Extremities-negative for any edema ASSISTANT SPEECH LANGUAGE PATHOLOGIST-alert, awake and oriented x 3. No focal sensory or motor deficit appreciated His admission labs, EKG and imaging studies reviewed CT of the chest did not show multifocal airspace opacities within the lungs could reflect alveolar pulmonary edema/infectious etiology Abdominal CT was fairly unremarkable Questionable issues with swallowing Likely has pneumonia may be aspiration-cefepime and doxycycline to cover atypicals-have been added Will not give any additional fluid intravenously Agree with assessment plan as outlined above by Nedra Jean-Baptiste PA-C and take all the responsibilities of the assessment and plan. Dr Colton Higuera (2) Bilateral pneumonia Lung location: unspecified part of lung Pneumonia type: due to unspecified organism Qualified Code(s): J18.9 - Pneumonia, unspecified organism (7) CAD (coronary artery disease) Associated angina: without angina Coronary Disease-Associated Artery/Lesion type: [place] artery [place] vs. transplanted heart: [place] heart Qualified Code(s): I25.10 - Atherosclerotic heart disease of [place] coronary artery without angina pectoris (8) Atrial fibrillation Atrial fibrillation type: unspecified Qualified Code(s): I48.91 - Unspecified atrial fibrillation (10) Hypertension Hypertension type: essential hypertension Qualified Code(s): I10 - Essential (primary) hypertension (11) Hyperlipidemia Hyperlipidemia type: unspecified Qualified Code(s): E78.5 - Hyperlipidemia, unspecified
[2023-11-05] MEDS: AZITHROMYCIN 500 MG in DEXTROSE 5% 250 ML IV ONE (13:36)
--- NOTE | 2023-11-05 13:51 | CT Scan Report ---
HEAD CT NONCONTRAST CT DOSE: 1564.3 mGy.cm HISTORY: Headache. TECHNIQUE: Multiaxial CT images of the head were performed without the use of intravenous contrast. A utomated exposure control was utilized for this study. A dose lowering technique was utilized adheri ng to the principles of ALARA. Comparison: Head CT 08/25/2023 Findings: The paranasal sinuses and mastoid air cells are clear. The calvarium and skull base are int act. There is no mass, hematoma, midline shift, acute infarct. White matter hypodensity is nonspecifi c but suggestive of microvascular ischemic change. The ventricles and sulci demonstrate mild age-rela saima involutional changes. Small focus of encephalomalacia within the left occipital lobe consistent w ith an old infarct. This remains unchanged. Impression: No significant change compared to the prior study. No acute intracranial abnormality. ACT 112: Negative or not required by law. Electronically signed by: Sukhi Moscoso M.D. 11/05/2023 1:49 PM
[2023-11-05 14:08] LABS: Appearance Urine Clear (Clear); Bacteria Urine Automated None Seen (None Seen); Bilirubin Urine Negative (Negative); Blood Urine 2+ (Negative); Color Urine Yellow; Epithelial Cell Urine Auto 0-2 /hpf (0-2); Glucose Urine UA Negative (Negative); Ketones Urine Negative (Negative); Leukocyte Esterase Urine Trace (Negative); Nitrite Urine Negative (Negative); Protein Urine 1+ (Negative); Specific Gravity Urine > 1.045 (1.000-1.030); Urobilinogen Urine Negative (Negative)
[2023-11-05 14:21] LABS: INR 3.1 (0.9-1.1); Prothrombin Time 30.7 Seconds (9.0-12.0)
[2023-11-05 15:05] LABS: Adenovirus PCR Not Detected (NotDetected); Bordetella parapertussis PCR Not Detected (NotDetected); Bordetella pertussis PCR Not Detected (NotDetected); Chlamydia pneumoniae PCR Not Detected (NotDetected); Coronavirus 229E PCR Not Detected (NotDetected); Coronavirus CoV-2 (COVID19)PCR Not Detected (NotDetected); Coronavirus HKU1 PCR Not Detected (NotDetected); Coronavirus NL63 PCR Not Detected (NotDetected); Coronavirus OC43PCR Not Detected (NotDetected); Human Metapneumovirus PCR Not Detected (NotDetected); Influenza A PCR Not Detected (NotDetected); Influenza B PCR Not Detected (NotDetected); Mycoplasma pneumoniae PCR Not Detected (NotDetected); Parainfluenza Virus 1 PCR Not Detected (NotDetected); Parainfluenza Virus 2 PCR Not Detected (NotDetected); Parainfluenza Virus 3 PCR Not Detected (NotDetected); Parainfluenza Virus 4 PCR Not Detected (NotDetected); Respiratory Syncytial VirusPCR Not Detected (NotDetected); Rhinovirus/Enterovirus PCR Not Detected (NotDetected)
--- NOTE | 2023-11-05 15:21 | CT Scan Report ---
CT OF THE CHEST WITHOUT IV CONTRAST CLINICAL HISTORY: r/o pneumonia COMPARISON STUDY: Chest radiograph August 25, 2023. Chest CT November 10, 2020. TECHNIQUE: Axial images of the chest were obtained without IV contrast. Images were reviewed in the axial, sagittal, and coronal planes. IV contrast was not administered for this examination. Automat ed exposure control was utilized for the study. A dose lowering technique was utilized adhering to t he principles of ALARA. FINDINGS: Left subclavian pacer, median sternotomy wires and aortic valvular prosthesis are incident ally noted. Multiple enlarged mediastinal lymph nodes have increased in size since chest CT of November [id number]. Right paratracheal lymph node on image 69 measures 2.7 x 1.8 cm. Moderate cardiomegaly is ag ain noted. There is no pericardial effusion. There is no pneumothorax. There are trace bilateral pleu ral effusions. Interlobular septal thickening is present. Patchy bilateral airspace opacities are not ed within the lungs. There is no central obstructing mass. An 8 mm right middle lobe nodule is unchan ged since prior CT. This is likely benign. There are multiple old thoracic spine fractures . IMPRESSION: 1. Interlobular septal thickening consistent with interstitial pulmonary edema. Trace bilateral pleur al effusions. 2. Multifocal airspace opacities within the lungs which could reflect alveolar pulmonary edema or an infectious etiology. 3. Subpleural reticulation/cystic change. This represents underlying interstitial lung disease. 4. Cardiomegaly. 5. Multiple mildly enlarged mediastinal lymph nodes. These may be reactive related to pulmonary edema . ACT 112: Negative or not required by law. Electronically signed by: Kevin Pa M.D. 11/05/2023 3:18 PM
--- NOTE | 2023-11-05 15:49 | CT Scan Report ---
CT cervical spine wo con CLINICAL HISTORY: neck pain TECHNIQUE: Multidetector row helical CT of the cervical spine was performed without administration of intravenous contrast. Coronal and sagittal reformations were obtained. Automated dose lowering techn iques and/or adjustment according to patient size were utilized for this exam. Comparison: None available at the time of this dictation. FINDINGS: No acute fractures or subluxations are identified. Degenerative changes are seen in the visualized sp ine. The alignment is normal. Biapical scarring is seen. IMPRESSION: Degenerative changes without evidence of acute bony injury. ACT 112: Negative or not required by law. Electronically signed by: Melvin Rios M.D. 11/05/2023 3:48 PM
[2023-11-05] MEDS ORDERED: ACETAMINOPHEN 325 MG TAB PO PRN (16:39)
[2023-11-05] MEDS ORDERED: PROMETHAZINE HCL 6.25 MG in SODIUM CHLORIDE 0.9% 50 ML IV PRN (16:39)
[2023-11-05] MEDS ORDERED: POLYETHYLENE (MIRALAX) 17 GM PACK PO PRN (16:39)
[2023-11-05] MEDS: DIGOXIN 0.125 MG TAB PO SCH (18:11)
[2023-11-05] MEDS: CEFEPIME 2,000 MG in SYRINGE 0 ML IV SCH (18:11)
[2023-11-05] MEDS: GABAPENTIN 300 MG CAP PO SCH (19:44)
[2023-11-05] MEDS: DOXYCYCLINE HYCLATE 100 MG CAP PO SCH (19:45)
[2023-11-05] MEDS: MEMANTINE HCL 10 MG TAB PO SCH (19:46)
[2023-11-05] MEDS: DONEPEZIL HCL 10 MG TAB PO SCH (19:46)
[2023-11-05] MEDS: ISOSORBIDE MONO EXTENDED REL 60 MG TABCR PO SCH (19:46)
[2023-11-05] MEDS: METOPROLOL SUCC 50MG EXT REL TAB PO SCH (19:47)
[2023-11-05] MEDS: DICLOFENAC SOD 1% GEL 100 GM TUBE EXT SCH (19:48)
[2023-11-05] MEDS: VALSARTAN/SACUBITRIL 26/24MG TAB PO SCH (19:58)
--- NOTE | 2023-11-06 00:30 | Electrocardiogram Report ---
Test Reason : Blood Pressure : / mmHG Vent. Rate : 070 BPM Atrial Rate : 000 BPM P-R Int : 000 ms QRS Dur : 134 ms QT Int : 428 ms P-R-T Axes : 000 -63 086 degrees QTc Int : 462 ms Ventricular-paced rhythm Abnormal ECG When compared with ECG of 25-AUG-2023 21:14, No significant change Confirmed by Thierno Estrada ([id number]) on 11/06/2023 12:30:12 AM Referred By: REFERRED SELF Confirmed By:Thierno Estrada
--- NOTE | 2023-11-06 00:46 | Communication Note ---
Date of Service: November 06, 2023 Code luis miguel called around 12:30 AM Patient had witnessed syncopal event upon being ambulated with assistance by staff. Patient denies headache, chest pain. Admits SOB more than usual Achy abdominal pain. SBP 100s, heart rate 60s O2 sats 90s on 4 L BSG 90s PPE Anxious, hard of hearing, no respiratory distress Chest x-ray as per my interpretation: Congestion, cardiomegaly, atelectasis EKG as per my interpretation : rate 70, paced rhythm AP Witnessed syncopal event possible orthostasis given borderline BP in the setting of multiple home BP me dications Possible vagal response from abdominal pain Decrease maintenance beta-roel and isosorbide doses for now, hold Entresto for now CT abdomen pelvis for abdominal pain given coagulopathy secondary to Coumadin Rx
[2023-11-06 01:15] LABS: Basophils # (auto) 0.09 K/uL (0.00-0.20); Basophils % (auto) 0.8 %; Eosinophils # (auto) 0.85 K/uL (0.00-0.50); Eosinophils % (auto) 7.6 %; Hematocrit (blood only) 40.7 % (42.0-52.0); Hemoglobin 13.1 g/dl (14.0-18.0); Immature Granulocytes # (auto) 0.06 K/uL (0.01-0.20); Immature Granulocytes % (auto) 0.5 %; Lymphocytes # (auto) 1.94 K/uL (1.20-3.40); Lymphocytes % (auto) 17.4 %; Mean Corpuscular Hemoglobin 32.3 pg (25.0-34.0); Mean Corpuscular Hgb Conc 32.2 g/dL (32.0-36.0); Mean Corpuscular Volume 100.5 fL (80.0-100.0); Mean Platelet Volume 9.8 fL (9.4-12.4); Monocytes # (auto) 0.75 K/uL (0.11-0.59); Monocytes % (auto) 6.7 %; Neutrophils # (auto) 7.45 K/uL (1.40-6.50); Platelet Count 198 K/uL (130-400); RDW Coefficient of Variation 16.3 % (11.5-14.5); RDW Standard Deviation 60.6 fL (36.4-46.3); Red Blood Count 4.05 M/uL (4.70-6.10); White Blood Count 11.14 K/ul (4.8-10.8)
[2023-11-06 01:23] LABS: Albumin Level 3.7 gm/dl (3.4-5.0); BUN Creatinine Ratio 18.8 (10-20); Bilirubin,Total 0.7 mg/dl (0.2-1.0); Calcium 8.8 mg/dl (8.6-10.3); Creatinine Clr Calc Pharmacy 31.9 ml/min; Est GFR (African American) 49.9 ml/min; Globulin 3.6 gm/dl (2.5-4.0); Magnesium 1.8 mg/dl (1.7-2.4); Potassium 4.5 mmol/L (3.5-5.1); Total Protein 7.3 gm/dl (6.0-8.3)
[2023-11-06 01:28] LABS: Troponin I High Sensitivity 27.6 pg/ml (0-20)
[2023-11-06 01:37] LABS: INR 3.3 (0.9-1.1); Partial Thromboplastin Ratio 1.2; Partial Thromboplastin Time 33 Seconds (21-31); Prothrombin Time 32.4 Seconds (9.0-12.0)
[2023-11-06] MEDS: OLANZapine 10 MG/2.1 ML SDV IM PRN ×2 (02:10→22:38)
[2023-11-06] MEDS: MAGNESIUM SULFATE / D5W 1 GM/100 ML BAG IV ONE (02:16)
[2023-11-06] MEDS: ALBUT/IPRATROP 3MG/0.5MG NEB 3 ML VIAL NEB STA (02:29)
[2023-11-06] MEDS: ACETAMINOPHEN 1,000 MG/100 ML VIAL IV STA (02:31)
[2023-11-06] MEDS: METOPROLOL TARTRATE 25 MG TAB PO STA (02:56)
[2023-11-06] MEDS ORDERED: ACETAMINOPHEN 500 MG TAB PO SCH (06:00)
--- NOTE | 2023-11-06 07:27 | XRay Report ---
XR chest 1V portable CLINICAL HISTORY: sob TECHNIQUE: Single frontal radiograph of the chest was obtained. Comparison: Comparison is made to chest radiograph 08/25/2023 FINDINGS: Lines and tubes are stable. Cardiomegaly is noted. The aortic arch is calcified. Interstitial thicken ing is seen in the lungs. There may be a new airspace opacity in the left lower lobe. No evidence of pleural effusion or pneumothorax. IMPRESSION: Interstitial thickening with likely left lower lung airspace opacity. This may represent atelectasis, pneumonia, and/or aspiration. ACT 112: Negative or not required by law. Electronically signed by: Melvin Rios M.D. 11/06/2023 7:25 AM
[2023-11-06] MEDS: METOPROLOL SUCC 25MG EXT REL TAB PO SCH (08:01)
[2023-11-06] MEDS: FINASTERIDE 5 MG TAB PO SCH (08:01)
[2023-11-06] MEDS: PANTOprazole 40 MG TAB PO SCH (08:02)
[2023-11-06] MEDS: SERTRALINE HCL 50 MG TABLET PO SCH (08:02)
[2023-11-06] MEDS: MULTIVITAMIN TAB PO SCH (08:02)
[2023-11-06] MEDS: ATORVASTATIN 40 MG TAB PO SCH (08:02)
[2023-11-06] MEDS: CHOLECALCIFEROL 125 MCG (5,000 UNITS) TAB PO SCH (08:02)
[2023-11-06] MEDS: ASPIRIN 81 MG ECTAB PO SCH (08:02)
[2023-11-06] MEDS: LORATADINE 10 MG TAB PO SCH (08:04)
--- NOTE | 2023-11-06 10:46 | Hospitalist Progress Note ---
Date of Service November 06, 2023 Assessment & Plan (1) Generalized weakness: (2) Bilateral pneumonia: Plan: Patient is 88 year old male with PMH chronic atrial fibrillation, history of ischemic cardiomyopathy, pacemaker in place, CAD s/p CABG, HTN, HLD, pulmonary f ibrosis, COPD, dementia, BPH, arthritis, LOIS, CKD III, and others listed below presented to ER with c/o lower abdominal discomfort x 1 day. Denies fever/chills, vomiting, diarrhea, CP, SOB. chronic cough. In ER afebrile, vitals stabe. No Leukocytosis, lactate procalcitonin WNL, BNP: 666. INR therapeutic. [employer] respiratory panel negative CT abdomen pelvis: Progressive patchy bibasilar airspace opacities. This likely represents a pneumonia. Pulmonary edema could also a similar appearance. Trace bilateral pleural effusions and cardiomegaly. Mild progression of the subcarinal and bilateral hilar lymphadenopathy. Stable 9 mm right middle lobe pulmonary nodule. CT chest reviewed interstitial edema, multifocal airspace which could be pulm edema vs infectious Continue lasix MWF Aspiration precautions WAREHOUSE REPRESENTATIVE eval noted WEAKNESS CT Head no acute findings Weakness may be secondary to underlying infection UA pending PT/OT eval Fall precautions (3) Abdominal pain: Plan: CT Abd/pelvis: No bowel wall thickening or obstruction. Monitor None at this time (4) Neck pain: Plan: Complains of intermittent left-sided neck pain and intermittent associated headaches. Suspect musculoskeletal etiology, degenerative changes CT C-spine noted degenerative changes without evidence of acute bony injury Continue topical diclofenac and home tramadol as needed (5) Ischemic cardiomyopathy: (6) Pacemaker: (7) CAD (coronary artery disease): Plan: History CAD, history [place] in 1983. S/p CABG. Pacemaker in place Currently appears euvolemic clinically Continue aspirin, atorvastatin, Isosorbide, metoprolol succinate reduced and Entresto held by Dust Mixer due to syncopal episode with borderline BP Will discuss with Cardiology tomorrow Monitor BP normal (8) Atrial fibrillation: Plan: Anticoagulated on Coumadin INR: 3.3 Continue metoprolol succinate, digoxin Warfarin on hold for now. Monitor and resume once within therapeutic range (9) CKD (chronic kidney disease), stage III: Plan: Cr: 1.44. Is at baseline Monitor renal functions (10) Hypertension: Plan: Continue isosorbide, metoprolol succinate (11) Hyperlipidemia: Plan: Continue atorvastatin (12) Dementia: Plan: Continue Donepezil, memantine (13) COPD (chronic obstructive pulmonary disease): (14) Pulmonary fibrosis: Plan: History of COPD, pulmonary fibrosis per chart review (15) BPH (benign prostatic hyperplasia): Plan: Continue finasteride DVT Prophylaxis -Warfarin on hold due to supratherapeutic INR DNR/DNI as per discussion with pt Follows with Dr Conrad for routine care Called daughter and updated I spent a total of 50 minutes coordinating, documenting and providing care for this patient excluding time spent in performance of separately billed services Admission and Anticipated Discharge Date Admission Date: November 05, 2023 Subjective Patient seen and examined Alert and oriented to person only Confused No complaints Syncopal episode overnight per night team thought to be orthostatic Physical Exam Constitutional: + well hydrated; no acute distress Eyes: PERRL, conjunctivae normal, anicteric sclerae ENMT: external ear and nose normal, oropharynx normal Respiratory: normal respiratory effort, lungs clear to auscultation Cardiovascular: Regular S1 S2 Gastrointestinal (Abdomen): normal bowel sounds, soft, nontender, no hepat osplenomegaly Musculoskeletal: No pedal edema Neurologic: PERRL, EOMI, accommodation nl, no face palsy, no dysarthria Psychiatric: Alert and oriented to person Results & Data Results & Data Vital Signs (Past 12 Hours) Vital Signs Temp Pulse Pulse Pulse Resp BP Pulse Ox 11/06/23 07:16 36.3 C L 70 20 115/56 L 98 11/06/23 07:00 70 11/06/23 03:18 36.7 C 69 16 108/53 L 97 11/06/23 02:36 11/06/23 02:29 70 18 96 11/05/23 23:43 36.7 C 70 16 126/42 L 92 O2 Del Method O2 Flow Rate 11/06/23 07:16 Nasal Cannula 2 11/06/23 07:00 11/06/23 03:18 Nasal Cannula 4 11/06/23 02:36 Nasal Cannula 4 11/06/23 02:29 Nasal Cannula 4 11/05/23 23:43 Room Air Laboratory Results Abnormal lab results 11/06/23 11/06/23 Range/Units 00:52 05:24 WBC 11.14 H (4.8-10.8) K/ul RBC 4.05 L (4.70-6.10) M/uL Hgb 13.1 L (14.0-18.0) g/dl Hct 40.7 L (42.0-52.0) % MCV 100.5 H (80.0-100.0) fL RDW Std Deviation 60.6 H (36.4-46.3) fL RDW Coeff of [place] 16.3 H (11.5-14.5) % Neut # (Auto) 7.45 H (1.40-6.50) K/uL [place] # (Auto) 0.75 H (0.11-0.59) K/uL Eos # (Auto) 0.85 H (0.00-0.50) K/uL PT 32.4 H (9.0-12.0) Seconds INR 3.3 H (0.9-1.1) APTT 33 H (21-31) Seconds Chloride 109 H (98-107) mmol/L Carbon Dioxide 19 L (21-32) mmol/L BUN 27 H (6-23) mg/dl Creatinine 1.44 H (0.6-1.4) mg/dl Glucose 141 H (70-99(Fasting)) mg/dl Troponin I High Sens 27.6 H 28.7 H (0-20) pg/ml (2) Bilateral pneumonia Lung location: unspecified part of lung Pneumonia type: due to unspecified organism Qualified Code(s): J18.9 - Pneumonia, unspecified organism (7) CAD (coronary artery disease) Associated angina: without angina Coronary Disease-Associated Artery/Lesion type: [place] artery [place] vs. transplanted heart: [place] heart Qualified Code(s): I25.10 - Atherosclerotic heart disease of [place] coronary artery without angina pectoris (8) Atrial fibrillation Atrial fibrillation type: unspecified Qualified Code(s): I48.91 - Unspecified atrial fibrillation (10) Hypertension Hypertension type: essential hypertension Qualified Code(s): I10 - Essential (primary) hypertension (11) Hyperlipidemia Hyperlipidemia type: unspecified Qualified Code(s): E78.5 - Hyperlipidemia, unspecified
--- NOTE | 2023-11-06 12:19 | Electrocardiogram Report ---
Test Reason : Blood Pressure : / mmHG Vent. Rate : 070 BPM Atrial Rate : 075 BPM P-R Int : 000 ms QRS Dur : 138 ms QT Int : 434 ms P-R-T Axes : 000 -59 081 degrees QTc Int : 468 ms Ventricular-paced rhythm Abnormal ECG When compared with ECG of 05-NOV-2023 14:38, No significant change was found Confirmed by Curtis Herrera ([id number]) on 11/06/2023 12:19:03 PM Referred By: REFERRED SELF Confirmed By:Curtis Herrera
[2023-11-06] MEDS: ACETAMINOPHEN 500 MG TAB PO SCH (12:27)
--- NOTE | 2023-11-06 14:45 | CT Scan Report ---
CT abd pelvis wo con CLINICAL HISTORY: abd pain TECHNIQUE: Helical axial images of the abdomen and pelvis were obtained. Automated dose lowering tech niques and/or adjustment according to patient size were utilized for this exam. This exam was perfor med without intravenous contrast. CT DOSE: 649.73 mGy.cm COMPARISON: Comparison is made to CT abdomen pelvis 11/05/2023 FINDINGS: Lower chest: Interstitial thickening and airspace opacities. Cardiomegaly noted. Liver: Unremarkable. No focal lesions are seen. Gallbladder and biliary tree: No calcified gallstones. Normal caliber wall. No intra- or extrahepatic biliary ductal dilation. Pancreas: Unremarkable, no focal lesions. Spleen: Unremarkable. Adrenals: Unremarkable. Kidneys and ureters: Unremarkable. Bladder: Limited evaluation due to underdistention. Reproductive organs: Prostatic calcifications are seen which may represent prior hemorrhage or granul omatous disease. Bowel: Diverticulosis is seen without evidence of diverticulitis. The appendix is normal. Lymph nodes Retroperitoneal: Unremarkable. Pelvic: Unremarkable. Mesenteric: Unremarkable. Peritoneum: Normal. Vessels: Atherosclerotic calcifications are seen. Numerous tiny infrarenal aortic aneurysm is measure d 23 mm in diameter. Abdominal wall: Unremarkable. Bones: Degenerative changes in the visualized spine. Multilevel compression deformities are unchanged from prior exam. IMPRESSION: 1. No acute abnormalities are seen. 2. Redemonstration of bibasilar airspace opacities compatible with pneumonia. 3. Numerous compression deformities are unchanged from prior exam. ACT 112: Negative or not required by law. Electronically signed by: Melvin Rios M.D. 11/06/2023 2:43 PM
[2023-11-06] MEDS: QUEtiapine FUMARATE 25 MG TABLET PO ONE (19:03)
[2023-11-06] MEDS: traMADol HCL 50 MG TABLET PO PRN (19:52)
[2023-11-06] MEDS: ISOSORBIDE MONO EXTENDED REL 30 MG TABCR PO SCH (19:54)
[2023-11-06] MEDS: ZIPRASIDONE 20 MG/ML SDV IM STA (23:31)
[2023-11-07 05:43] LABS: Hematocrit (blood only) 41.7 % (42.0-52.0); Hemoglobin 13.4 g/dl (14.0-18.0); Mean Corpuscular Hemoglobin 32.6 pg (25.0-34.0); Mean Corpuscular Hgb Conc 32.1 g/dL (32.0-36.0); Mean Corpuscular Volume 101.5 fL (80.0-100.0); Mean Platelet Volume 9.8 fL (9.4-12.4); Platelet Count 176 K/uL (130-400); RDW Coefficient of Variation 16.7 % (11.5-14.5); RDW Standard Deviation 62.3 fL (36.4-46.3); Red Blood Count 4.11 M/uL (4.70-6.10); White Blood Count 8.86 K/ul (4.8-10.8)
[2023-11-07 05:59] LABS: BUN Creatinine Ratio 18.6 (10-20); Calcium 8.7 mg/dl (8.6-10.3); Creatinine Clr Calc Pharmacy 28.5 ml/min; Est GFR (African American) 43.6 ml/min; Est GFR (Non-African American) 37.6 ml/min; Magnesium 2.1 mg/dl (1.7-2.4); Phosphorus 2.9 mg/dl (2.5-4.9); Potassium 4.4 mmol/L (3.5-5.1)
[2023-11-07 06:07] LABS: INR 1.7 (0.9-1.1); Prothrombin Time 17.6 Seconds (9.0-12.0)
[2023-11-07] MEDS: FUROSEMIDE 40 MG/4 ML VIAL IV SCH (09:09)
--- NOTE | 2023-11-07 10:00 | Hospitalist Progress Note ---
Date of Service November 07, 2023 Assessment & Plan (1) Generalized weakness: (2) Bilateral pneumonia: Plan: 88 year old male with PMH chronic atrial fibrillation, history of ischemic cardiomyopathy, pacemaker in place, CAD s/p CABG, HTN, HLD, pulmonary fibrosis, COPD, dementia, BPH, arthritis, LOIS, CKD III, and others listed below presented to ER with c/o lower abdominal discomfort x 1 day. Denies fever/chills, vomiting, diarrhea, CP, SOB. chronic cough. In ER afebrile, vitals stabe. No Leukocytosis, lactate procalcitonin WNL, BNP: 666. INR therapeutic. [employer] respiratory panel negative CT abdomen pelvis: Progressive patchy bibasilar airspace opacities. This likely represents a pneumonia. Pulmonary edema could also a similar appearance. Trace bilateral pleural effusions and cardiomegaly. Mild progression of the subcarinal and bilateral hilar lymphadenopathy. Stable 9 mm right middle lobe pulmonary nodule. CT chest reviewed interstitial edema, multifocal airspace which could be pulm edema vs infectious CT Head no acute findings Patient has known oropharyngeal dysphagia with silent aspiration AIR MOVING TECHNICIAN danya noted Had discussed findings with Daughter Xochitl on 11/06/23. They agreed to permissive aspiration at this time Antibiotics changed to Unasyn Continue doxycycline Aspiration precautions PT/OT eval noted Fall precautions (3) Abdominal pain: Plan: CT Abd/pelvis: No acute abnormalities Resolved (4) Neck pain: Plan: CT C-spine noted degenerative changes without evidence of acute bony injury Continue topical diclofenac and home tramadol as needed (5) Ischemic cardiomyopathy: (6) Hypertension: (7) Pacemaker: (8) CAD (coronary artery disease): Plan: History CAD, history [place] in 1983. S/p CABG. Pacemaker in place Continue aspirin, atorvastatin, Overnight of 11/05, Isosorbide, metoprolol succinate reduced and Entresto held by Pillowcase Folder due to syncopal episode with borderline BP Vol status is tough to determine Gave IV lasix today with possible edema on CT. Considering findings, syncopal episode with BP and med adjustment, Cardiology was consulted Cardiology recommendations noted Further doses of lasix held for now. Reassess as needed Entresto resumed this AM. Cardiology recommends 0.5 tab BID Metoprolol increased back to home dose Continue reduced dose of imdur Monitor (9) Atrial fibrillation: Plan: Anticoagulated on Coumadin INR: 1.7 today Continue metoprolol succinate, digoxin Resume home warfarin (10) CKD (chronic kidney disease), stage III: Plan: Cr: 1.61 Monitor renal functions (11) Hyperlipidemia: Plan: Continue atorvastatin (12) Dementia: Plan: Continue Donepezil, memantine Reorient as needed Seroquel 25mg po HS prn Get EKG to monitor QTc (13) COPD (chronic obstructive pulmonary disease): (14) Pulmonary fibrosis: Plan: History of COPD, pulmonary fibrosis per chart review (15) BPH (benign prostatic hyperplasia): Plan: Continue finasteride DVT Prophylaxis -Warfarin DNR/DNI as per discussion with pt Follows with Dr Conrad for routine care Called daughter Xochitl and updated I spent a total of 55 minutes coordinating, documenting and providing care for this patient excluding time spent in performance of separately billed services Admission and Anticipated Discharge Date Admission Date: November 05, 2023 Subjective Patient seen and examined He became very agitated yesterday evening and required injection zyprexa and Geodon Patient is currently drowsy but arousable He is oriented to person only ROS is limited due to cognitive status Physical Exam Constitutional: + well hydrated; no acute distress Drowsy but arousable Eyes: PERRL, conjunctivae normal, anicteric sclerae ENMT: external ear and nose normal, oropharynx normal Respiratory: Normal resp effort. Diminished breath sounds Cardiovascular: Rate/Rhythm: regular rate S1 S2 Gastrointestinal (Abdomen): normal bowel sounds, soft, nontender, no hepatosplenomegaly Musculoskeletal: No pedal edema Neurologic: PERRL, EOMI, accommodation nl, no face palsy, no dysarthria Psychiatric: Drowsy but arousable. Oriented to person Results & Data Results & Data Vital Signs (Past 12 Hours) Vital Signs Temp Pulse Pulse Resp BP Pulse Ox Pulse Ox 11/07/23 07:56 70 11/07/23 07:56 11/07/23 07:47 36.9 C 91 H 16 137/68 92 11/07/23 03:05 36.4 C L 86 16 143/67 H 91 11/07/23 02:07 93 11/07/23 02:05 86 L 11/07/23 00:28 36.5 C 90 16 142/64 H 95 O2 Del Method O2 Del Method O2 Flow Rate O2 Flow Rate 11/07/23 07:56 07/05/24 07:56 2 11/07/23 07:47 Nasal Cannula 2 11/07/23 03:05 Nasal Cannula 3 11/07/23 02:07 Nasal Cannula 3 11/07/23 02:05 Room Air 11/07/23 00:28 Room Air Laboratory Results Abnormal lab results 11/07/23 Range/Units 05:24 RBC 4.11 L (4.70-6.10) M/uL Hgb 13.4 L (14.0-18.0) g/dl Hct 41.7 L (42.0-52.0) % MCV 101.5 H (80.0-100.0) fL RDW Std Deviation 62.3 H (36.4-46.3) fL RDW Coeff of [place] 16.7 H (11.5-14.5) % PT 17.6 H (9.0-12.0) Seconds INR 1.7 H (0.9-1.1) Chloride 109 H (98-107) mmol/L BUN 30 H (6-23) mg/dl Creatinine 1.61 H (0.6-1.4) mg/dl (2) Bilateral pneumonia Lung location: unspecified part of lung Pneumonia type: due to unspecified organism Qualified Code(s): J18.9 - Pneumonia, unspecified organism (6) Hypertension Hypertension type: essential hypertension Qualified Code(s): I10 - Essential (primary) hypertension (8) CAD (coronary artery disease) Associated angina: without angina Coronary Disease-Associated Artery/Lesion type: [place] artery [place] vs. transplanted heart: [place] heart Qualified Code(s): I25.10 - Atherosclerotic heart disease of [place] coronary artery without angina pectoris (9) Atrial fibrillation Atrial fibrillation type: unspecified Qualified Code(s): I48.91 - Unspecified atrial fibrillation (11) Hyperlipidemia Hyperlipidemia type: unspecified Qualified Code(s): E78.5 - Hyperlipidemia, unspecified
--- NOTE | 2023-11-07 10:22 | Cardiology Consultation ---
Date of Consultation November 07, 2023 Assessment & Plan (1) Abdominal pain: (2) Bilateral pneumonia: (3) Hypotension: (4) Syncope and collapse: (5) Ischemic cardiomyopathy: (6) Pacemaker: (7) Chronic atrial fibrillation: (8) Status post transcatheter aortic valve replacement (TAVR) using bioprosthesis: Plan Volume status is somewhat difficult to discern. Examination suggests more of a pulmonary exacerbation than cardiac. Agree with 40 mg IV furosemide today. Reevaluate need for ongoing IV diuretics in AM of 11/08/2023. Syncope episode. Suspect hypotensive mediated. Patient with indwelling appropriately functioning pacemaker, underlying chronic atrial fibrillation. No ventricular arrhythmias on telemetry review. Recommend titration of metoprolol succinate back to 50 mg twice a day. Reduce Imdur to 30 mg, in the morning. Decrease Entresto to 1/2 tablet twice a day for now. Treatment of infection as per Hospitalist. I spent a total of 57 minutes on the date of service in preparation, delivery, and documentation of the care provided to this patient excluding any time spent in the performance of separately billed services. This visit was a split-shared visit with the substantive portion of the medical decision making performed by the supervising clinical business analyst/billing provider. Supervising Physician Co-Signing Physician Notes I have personally performed a history and physical examination on the patient. I have reviewed the advance practitioner's documentation, and I agree with, and take responsibility for the plan of care. 88-year-old male admitted with pneumonia and abdominal discomfort. Poor historian. Unable to offer meaningful history due to underlying dementia. Witnessed syncopal episode last night prompting referral for cardiology evaluation. Permanent pacemaker in place without evidence of dysfunction. Telemetry reveals paced rhythm at 70 bpm. Chronic underlying atrial fibrillation noted. Suspect symptoms secondary to orthostatic hypotension possibly vagally mediated in the setting of abdominal discomfort. Recommend conservative medical management. Agree with adjustment of medications as noted above including titration of metoprolol succinate back to 50 mg twice daily, reduction of isosorbide monohydrate, and reduction of Entresto dosing. Treatment of underlying infectious process as per hospitalist. I spent a total of 30 minutes on the date of service in preparation, delivery, and documentation of the care provided to this patient, excluding any time spent in the performance of separately billed services. History of Present Illness Reason for Consultation: Acute on chronic heart failure, syncope episode inpatient with medications adjusted Requesting Physician: Dr. Candida Kinney MD Attending Physician: Dr. Candida Kinney MD History of Present Illness Mr. Víctor Coffey is a 88 year old male who presented from [facility] on November 05, 2023 with left lower quadrant pain, painful urination, dark/foul smelling. Imaging revealed bibasilar airspace opacities felt to represent pneumonia, versus pulmonary edema. Trace bilateral pleural effusions noted. In the ER patient received 1 L normal saline solution, Rocephin, azithromycin. IV fluids were not continued on admission. Cefepime and doxycycline prescribed on admission. On November 06, 2023, around 12:30 AM, patient was a code purple, experiencing a witnessed syncopal episode while ambulating with staff. Systolic blood pressure reported to be in the 100s. Heart rate reported to be in the 60s (pacemaker lower rate is set at 70 bpm). Event felt to represent orthostasis given borderline blood pressure, possible vagal response from abdominal pain. Analog Ic Design Engineer decreased metoprolol succinate from 50 mg twice per day to 25 mg twice per day, changed isosorbide to 30 mg in the PM, and held Entresto. This morning, Entresto was resumed and the patient was ordered 40 mg IV furosemide. Patient complains of cough, dyspnea, and chest congestion. No angina. No palpitations. No PND. No peripheral edema. Personal review of the patient's continuous telemetry monitoring reveals ventricular paced rhythm with rare PVC. No heart rates less than 70 bpm. Problem List: Atherosclerotic coronary disease Acute inferior myocardial infarction in 1983. Status post coronary artery bypass grafting in 1983, BELLAMY graft to LAD, saphenous vein graft to the right coronary artery. Cardiac catheterizations in 2005 and 2007 with progression of inaja vessel disease, with preserved grafts. Acute saphenous vein thrombosis in a setting of anti-platelet withdrawal for planned orthopaedic surgery in 2009. Ischemic cardiomyopathy, status post biventricular pacemaker implantation, [employer], generator exchange October 2019 at [facility]. Class III congestive heart failure Chronic atrial fibrillation. Valvular heart disease (, MR), status post TAVR 26 mm Lee Óscar S3 valve via left femoral cutdown July 28, 2018 Transient ischemic attack Carotid stenosis Hypertension Dyslipidemia Chronic obstructive lung disease, pulmonary fibrosis with hypoxia. Pulmonary nodule Bilateral hilar lymphadenopathy Sleep apnea Chronic kidney disease Dementia BPH Osteoarthritis Spinal stenosis Family History: Father with CAD at the age of 65. Mother passed with a cerebral aneurysm in her early 90's. Two brothers passed with CAD, one brother with carotid occlusive disease and a daughter with hyperlipidemia. Social History: Prior smoker having quit in 1972 (60 pack year history). Occasional alcoholic drink. No illegal drug use. Resident of [facility] Allergies Allergy/AdvReac Type Severity Reaction Status Date / Time oxycodone Allergy Severe HALLUCINATI Verified 03/07/23 16:15 ONS TASHA Inhibitors AdvReac Intermediate Cough Verified 03/07/23 16:15 rosuvastatin AdvReac Intermediate CONSTIPATIO Verified 03/07/23 16:15 N niacin AdvReac Mild FLUSHING Verified 03/07/23 16:15 paroxetine AdvReac Mild drowsiness Verified 03/07/23 16:15 Home Medications Medication Instructions Recorded Confirmed Type isosorbide mononitrate 60 mg 60 mg PO HS 02/10/18 11/05/23 History tablet,extended release 24 hr pantoprazole 40 mg tablet,delayed 40 mg PO QAM 02/10/18 11/05/23 History release loratadine 10 mg tablet 10 mg PO DAILY 12/04/18 11/05/23 History atorvastatin 40 mg tablet 40 mg PO DAILY 10/09/20 11/05/23 History gabapentin 300 mg capsule 300 mg PO TID 10/09/20 11/05/23 History aspirin 81 mg tablet,delayed 81 mg PO DAILY 11/10/20 11/05/23 History release memantine 10 mg tablet (Namenda) 10 mg PO BID #30 tabs 02/12/22 11/05/23 Rx acetaminophen 500 mg tablet 1,000 mg PO BID 03/01/23 11/05/23 History alendronate 70 mg tablet 70 mg PO WK 03/01/23 11/05/23 History calcium carbonate (Calcium 600) 600 mg PO QDL 03/01/23 11/05/23 History diclofenac sodium 1 % topical gel 2 g topical TID pain 03/01/23 11/05/23 History digoxin 125 mcg (0.125 mg) tablet 125 mcg PO 5XWK 03/01/23 11/05/23 History donepezil 10 mg tablet 10 mg PO HS 03/01/23 11/05/23 History finasteride 5 mg tablet 5 mg PO DAILY 03/01/23 11/05/23 History metoprolol succinate 100 mg 50 mg PO BID 03/01/23 11/05/23 History tablet,extended release 24 hr multivitamin (Daily-Selena tablet) 1 tab PO DAILY 03/01/23 11/05/23 History nitroglycerin 0.4 mg sublingual 0.4 mg sublingual .Q 5 MIN PRN 03/01/23 11/05/23 History tablet Chest Pain sacubitril 24 mg-valsartan 26 mg 1 tab PO BID 03/01/23 11/05/23 History tablet (Entresto) sertraline 25 mg tablet 25 mg PO DAILY 03/01/23 11/05/23 History tramadol 50 mg tablet 75 - 125 mg PO Q4 PRN Pain 03/01/23 11/05/23 History vit C 250 mg-vit E 90 mg-zinc 40 1 tab PO DAILY 03/01/23 11/05/23 History mg-copper 1 [id number] capsule (PreserVision AREDS-2) Gluco/Chond/Msm/Turm 3 tab PO BID 11/05/23 11/05/23 History Menthol 4% Topical Analgesic See Rx Instructions .Route 11/05/23 11/05/23 History .COMPLEX PRN Pain cholecalciferol (vitamin D3) 125 125 mcg PO DAILY 11/05/23 11/05/23 History mcg (5,000 unit) capsule coenzyme Q10 200 mg capsule (Co 200 mg PO DAILY 11/05/23 11/05/23 History Q-10) diphenhydramine 25 2 tab PO HS 11/05/23 11/05/23 History mg-acetaminophen 500 mg tablet (Tylenol PM Extra Strength) furosemide 40 mg tablet 40 mg PO 3XWK 11/05/23 11/05/23 History warfarin 3 mg tablet 3 mg PO DAILY 11/05/23 11/05/23 History Patient History Medical History LOIS (obstructive sleep apnea) YEMI (acute kidney injury) Ventricular tachycardia Epistaxis Hypoxia Congestive heart failure, NYHA class III Hospitalization 10/2017, 02/2018 for acute on chronic CHF Sleep apnea WITH CPAP Arthritis History of TIA (transient ischemic attack) OVER 5 YEARS AGO AND NO RESIDUAL EFFECTS Hx of myocardial infarction 1983 AND HAD CABG X2 Surgical History S/P left inguinal hernia repair (04/04/20) Open Sliding indirect Left Inguinal Hernia Repair, Direct weakness,with Mesh Placement, Excision Lipoma of Cord Dr. Morataya 04/04/2020 History of repair of inguinal hernia (11/06/18) Incarcerated right inguinal hernia repair and femoral hernia repair 11/06/18 Dr. Cho H/O carotid endarterectomy (~1997) 1997 on right Hx of aortic valve replacement (~05/2018) [facility] 05/2018 Status post right knee replacement S/P hernia repair RIGHT INGUINAL HERNIA REPAIR Colonoscopy (08/25/12) History of coronary artery bypass graft x 2 (~1983) 1983 - FOLLOWS WITH [facility] Stented coronary artery (~2014) 2014 ONE STENT WAS PLACED AND FOLLOWS WITH [facility] Family History Other Heart disease Social History Smoking Status: Former smoker Tobacco Type: Cigarettes Second Hand Exposure: No; Do You Dip or Chew Tobacco: No; Tobacco Cessation Education Requested by Patient: No Hx Alcohol Use: Yes Alcohol type: hard liquor Hx Substance Use: No Preferred Language: Azeri Communication Ability: Impaired Senior Analyst Market Intelligence Required: No Beliefs That Will Affect Care: None Current Living Situation: Personal Care Facility Current Living Situation Comment: [facility] current occupational status: retired Other Information That Helps Us Care for You: No Feels Safe at Home: Yes Safety Concerns: Feels Safe At This Time Assistive Devices: Walker Review of Systems Review of Systems: A Complete Review of Systems was not obtained. Patient with dementia. Physical Exam Physical Exam: General: Alert to person and place. Cachetic. HENT: Normocephalic. Atraumatic. Eyes: PER. Conjunctiva pink, sclera clear. Neck: Mild JVD. + HJR. + Bilateral carotid bruits Heart: Regular, paced. Soft systolic murmur at the lower left sternal nilson. Lungs: Diminished. Decreased. Diffuse rhonchi. No wheeze. Abdomen: +BS. Soft. Nontender. No masses or organomegaly. Extremities: No clubbing, cyanosis, or edema. Limited neurological examination is without focal deficits. Pulses: Posterior tibial=1/4. Results & Data Vital Signs (Past 12 Hours) Vital Signs Temp Pulse Pulse Resp BP Pulse Ox Pulse Ox 11/07/23 07:56 70 11/07/23 07:56 11/07/23 07:47 36.9 C 91 H 16 137/68 92 11/07/23 03:05 36.4 C L 86 16 143/67 H 91 11/07/23 02:07 93 11/07/23 02:05 86 L 11/07/23 00:28 36.5 C 90 16 142/64 H 95 O2 Del Method O2 Del Method O2 Flow Rate O2 Flow Rate 11/07/23 07:56 11/07/23 07:56 2 11/07/23 07:47 Nasal Cannula 2 11/07/23 03:05 Nasal Cannula 3 11/07/23 02:07 Nasal Cannula 3 11/07/23 02:05 Room Air 11/07/23 00:28 Room Air Laboratory Results Coagulation 11/07/23 Range/Units 05:24 PT 17.6 H (9.0-12.0) Seconds CBC 11/07/23 Range/Units 05:24 WBC 8.86 (4.8-10.8) K/ul RBC 4.11 L (4.70-6.10) M/uL Hgb 13.4 L (14.0-18.0) g/dl Hct 41.7 L (42.0-52.0) % Plt Count 176 (130-400) K/uL Comprehensive Metabolic Panel 11/07/23 Range/Units 05:24 Sodium 139 (136-145) mmol/L Potassium 4.4 (3.5-5.1) mmol/L Chloride 109 H (98-107) mmol/L Carbon Dioxide 21 (21-32) mmol/L BUN 30 H (6-23) mg/dl Creatinine 1.61 H (0.6-1.4) mg/dl Glucose 87 (70-99(Fasting)) mg/dl Calcium 8.7 (8.6-10.3) mg/dl Intake and Output 11/06/23 11/07/23 11/07/23 22:59 06:59 14:59 Other: Other Intake Source sips # Unmeasured Voids 1 Diagnostic Findings Device interrogation on August 19, 2023 demonstrated appropriate function, 6.1 years remaining longevity. Lower rate set at 70 bpm. Ventricular paced 96.1% of the time. Telemetry: Ventricular paced in the 70's. Rare PVC's. (2) Bilateral pneumonia Lung location: unspecified part of lung Pneumonia type: due to unspecified organism Qualified Code(s): J18.9 - Pneumonia, unspecified organism
[2023-11-07] MEDS: AMPICILLIN/SULBACTAM SOD 3,000 MG in SODIUM CHLOR 0.9% MINI-B 100 ML IV SCH (12:58)
[2023-11-07] MEDS ORDERED: QUEtiapine FUMARATE 25 MG TABLET PO PRN (13:20)
[2023-11-07] MEDS: WARFARIN SOD 3 MG TAB PO SCH (17:10)
[2023-11-07] MEDS: VALSARTAN/SACUBITRIL 26/24MG TAB PO SCH (21:46)
[2023-11-07] MEDS: METOPROLOL SUCC 50MG EXT REL TAB PO SCH (21:46)
[2023-11-08 05:55] LABS: Hematocrit (blood only) 39.1 % (42.0-52.0); Hemoglobin 12.7 g/dl (14.0-18.0); Mean Corpuscular Hemoglobin 32.6 pg (25.0-34.0); Mean Corpuscular Hgb Conc 32.5 g/dL (32.0-36.0); Mean Corpuscular Volume 100.3 fL (80.0-100.0); Platelet Count 168 K/uL (130-400); RDW Coefficient of Variation 16.3 % (11.5-14.5); RDW Standard Deviation 59.7 fL (36.4-46.3)
[2023-11-08 06:13] LABS: BUN Creatinine Ratio 19.7 (10-20); Calcium 8.4 mg/dl (8.6-10.3); Creatinine Clr Calc Pharmacy 33.5 ml/min; Est GFR (Non-African American) 45.7 ml/min; Phosphorus 2.6 mg/dl (2.5-4.9); Potassium 4.3 mmol/L (3.5-5.1)
[2023-11-08 06:19] LABS: INR 1.7 (0.9-1.1); Prothrombin Time 17.3 Seconds (9.0-12.0)
[2023-11-08] MEDS: ISOSORBIDE MONO EXTENDED REL 30 MG TABCR PO SCH (08:23)
--- NOTE | 2023-11-08 08:31 | Cardiology Progress Note ---
<Statement entered by Teresa Suazo, DO - 11/08/23 12:08> I have reviewed the advanced practitioner's documentation and agree with the plan of care. I accept the responsibility for the associated risk. Pt seen in cardiology f/u due to acute on chronic heart failure with reduced EF- NYHA Class III in the setting of PNA will give another dose of IV lasix today; and then i think we can transition back to his home dose of lasix 3x a week no change in other cardiac medications he will need f/u in our office upon dishcarge Please re-consult as necessary Dr. Suazo Date of Service November 08, 2023 Assessment & Plan (1) Abdominal pain: (2) Bilateral pneumonia: (3) Hypotension: (4) Syncope and collapse: (5) Ischemic cardiomyopathy: (6) Pacemaker: (7) Chronic atrial fibrillation: (8) Status post transcatheter aortic valve replacement (TAVR) using bioprosthesis: Plan 88-year-old male admitted with abdominal discomfort and pneumonia. Cardiology consultation requested after syncopal episode in jumpbasting machine operator hours of November 06, 2023 most likely representing vagal episode versus orthostatic hypotension. Patient with chronic atrial fibrillation, permanent pacemaker functioning appropriately, without arrhythmias on telemetry around that time. Volume status is somewhat difficult to discern though with clinical improvement in dyspnea following administration of IV furosemide yesterday. Creatinine improved this AM. Recommendations: 1. 40 mg IV furosemide today. Reevaluate need for ongoing IV diuretics next AM 2. Continue all other cardiac medications as prescribed for now. 3. If BP remains elevated would consider titration of Imdur and/or Entresto back to prior dosing. 4. Treatment of infection as per Hospitalist. I spent a total of 25 minutes on the date of service in preparation, delivery, and documentation of the care provided to this patient excluding any time spent in the performance of separately billed services. This visit was a split-shared visit with the substantive portion of the medical decision making performed by the supervising therapeutic support staff/billing provider. Admission and Anticipated Discharge Date Admission Date: November 05, 2023 Subjective Patient seen and examined. Chart, medications, and telemetry reviewed. Breathing easier today. No chest pain. No palpitations. Telemetry: Ventricular paced in the 70s. Review of Systems Review of Systems: Patient with dementia. Physical Exam Physical Exam: General: Alert to person and place. Somewhat cachectic in appearance HENT: Normocephalic. Atraumatic. Eyes: PER. Conjunctiva pink, sclera clear. Neck: Mild JVD. + Bilateral carotid bruits Heart: Regular, paced. Grade II-III systolic murmur heard best at the lower left sternal border. Lungs: Improved. Less rhonchorous. No wheeze. Abdomen: +BS. Soft. Nontender. No masses or organomegaly. Extremities: No clubbing, cyanosis, or edema. Limited neurological examination is without focal deficits. Pulses: Posterior tibial=1/4. Results & Data Vital Signs (Past 12 Hours) Vital Signs Temp Pulse Pulse Resp BP BP Pulse Ox 11/08/23 07:38 36.8 C 69 16 152/63 H 95 11/08/23 07:17 11/08/23 07:09 70 11/08/23 02:51 36.5 C 71 18 148/64 H 90 11/08/23 02:00 11/07/23 22:24 36.6 C 72 18 162/72 H 96 11/07/23 21:56 70 O2 Del Method O2 Del Method O2 Flow Rate 11/08/23 07:38 Room Air 11/08/23 07:17 Nasal Cannula 2.5 11/08/23 07:09 11/08/23 02:51 Nasal Cannula 2.5 11/08/23 02:00 Nasal Cannula 11/07/23 22:24 Nasal Cannula 2.5 11/07/23 21:56 Laboratory Results Coagulation 11/08/23 Range/Units 05:33 PT 17.3 H (9.0-12.0) Seconds CBC 11/08/23 Range/Units 05:33 WBC 8.70 (4.8-10.8) K/ul RBC 3.90 L (4.70-6.10) M/uL Hgb 12.7 L (14.0-18.0) g/dl Hct 39.1 L (42.0-52.0) % Plt Count 168 (130-400) K/uL Comprehensive Metabolic Panel 11/08/23 Range/Units 05:33 Sodium 139 (136-145) mmol/L Potassium 4.3 (3.5-5.1) mmol/L Chloride 110 H (98-107) mmol/L Carbon Dioxide 22 (21-32) mmol/L BUN 27 H (6-23) mg/dl Creatinine 1.37 (0.6-1.4) mg/dl Glucose 101 H (70-99(Fasting)) mg/dl Calcium 8.4 L (8.6-10.3) mg/dl Intake and Output 11/07/23 11/08/23 11/08/23 22:59 06:59 14:59 Intake Total 0 / 200 100 / 200 Output Total 150 / 150 Balance 0 / 50 -50 / 50 Intake: IV 100 / 200 Ampicillin/Sulbactam Sod 3,000 100 / 200 mg In Sodium Chlor 0.9% Mini-B 100 ml @ 200 mls/hr IV Q12H [facility] Rx#:[id number] Oral 0 / 0 0 / 0 Output: Urine 150 / 150 Other: # Unmeasured Voids 0 1 Weight 60.5 kg (2) Bilateral pneumonia Lung location: unspecified part of lung Pneumonia type: due to unspecified organism Qualified Code(s): J18.9 - Pneumonia, unspecified organism
[2023-11-08] MEDS: FUROSEMIDE 40 MG/4 ML VIAL IV ONE (08:51)
[2023-11-08] MEDS: POTASSIUM CHLORIDE 10 MEQ TABCR PO ONE (08:52)
--- NOTE | 2023-11-08 08:52 | Electrocardiogram Report ---
Test Reason : Blood Pressure : / mmHG Vent. Rate : 070 BPM Atrial Rate : 078 BPM P-R Int : 000 ms QRS Dur : 134 ms QT Int : 436 ms P-R-T Axes : 000 -61 086 degrees QTc Int : 470 ms Ventricular-paced rhythm Abnormal ECG When compared with ECG of 06-NOV-2023 03:44, No significant change was found Confirmed by Jose Alfredo Floyd ([id number]) on 11/08/2023 8:52:29 AM Referred By: REFERRED SELF Confirmed By:Jose Alfredo Floyd
--- NOTE | 2023-11-08 11:02 | Hospitalist Progress Note ---
Date of Service November 08, 2023 Assessment & Plan (1) Generalized weakness: (2) Bilateral pneumonia: Plan: 88 year old male with PMH chronic atrial fibrillation, history of ischemic cardiomyopathy, pacemaker in place, CAD s/p CABG, HTN, HLD, pulmonary fibrosis, COPD, dementia, BPH, arthritis, LOIS, CKD III, and others listed below presented to ER with c/o lower abdominal discomfort x 1 day. Denies fever/chills, vomiting, diarrhea, CP, SOB. chronic cough. In ER afebrile, vitals stabe. No Leukocytosis, lactate procalcitonin WNL, BNP: 666. INR therapeutic. [employer] respiratory panel negative CT abdomen pelvis: Progressive patchy bibasilar airspace opacities. This likely represents a pneumonia. Pulmonary edema could also a similar appearance. Trace bilateral pleural effusions and cardiomegaly. Mild progression of the subcarinal and bilateral hilar lymphadenopathy. Stable 9 mm right middle lobe pulmonary nodule. CT chest reviewed interstitial edema, multifocal airspace which could be pulm edema vs infectious CT Head no acute findings Patient has known oropharyngeal dysphagia with silent aspiration CHILD WELFARE MANAGER danya noted Had discussed findings with Daughter Xochitl on 11/06/23. She agreed to permissive aspiration at this time Currently on Unasyn and doxycycline for Aspiration Pneumonia Aspiration precautions PT/OT danya noted Fall precautions (3) Abdominal pain: Plan: CT Abd/pelvis: No acute abnormalities Resolved (4) Neck pain: Plan: CT C-spine noted degenerative changes without evidence of acute bony injury Continue topical diclofenac and home tramadol as needed (5) Ischemic cardiomyopathy: (6) Hypertension: (7) Pacemaker: (8) CAD (coronary artery disease): Plan: History CAD, history [place] in 1983. S/p CABG. Pacemaker in place Continue aspirin, atorvastatin, Overnight of 11/05, Isosorbide, metoprolol succinate reduced and Entresto held by Project Assistant due to syncopal episode with borderline BP Vol status is tough to determine Considering findings, syncopal episode with BP and med adjustment, Cardiology was consulted Respiratory status and renal function improved with IV lasix. Hence possible component of Acute on chronic heart failure with preserved ejection fractioin Discussed with Cardiology. Give another dose of IV lasix today and transition to po Currently on Entresto 0.5 tab BID. If BP remains elevated to high normal, plan to resume home dose Currently back to home dose Metoprolol Continue reduced dose of imdur Monitor (9) Atrial fibrillation: Plan: Anticoagulated on Coumadin INR: 1.7 today Continue metoprolol succinate, digoxin Continue home warfarin (10) CKD (chronic kidney disease), stage III: Plan: Cr: 1.61 Monitor renal functions (11) Hyperlipidemia: Plan: Continue atorvastatin (12) Dementia: Plan: Continue Donepezil, memantine Reorient as needed Seroquel 25mg po HS prn (13) COPD (chronic obstructive pulmonary disease): (14) Pulmonary fibrosis: Plan: History of COPD, pulmonary fibrosis per chart review (15) BPH (benign prostatic hyperplasia): Plan: Continue finasteride DVT Prophylaxis -Warfarin DNR/DNI as per discussion with pt Follows with Dr Conrad for routine care I spent a total of 45 minutes coordinating, documenting and providing care for this patient excluding time spent in performance of separately billed services Admission and Anticipated Discharge Date Admission Date: November 05, 2023 Subjective Patient seen and examined He is alert and oriented to person only On room air ROS limited due to cognitive impairment Physical Exam Constitutional: + well hydrated; no acute distress Eyes: PERRL, conjunctivae normal, anicteric sclerae ENMT: external ear and nose normal, oropharynx normal Respiratory: Normal respiratory effort. Diminished breath sounds Cardiovascular: Rate/Rhythm: regular rate S1 S2 Gastrointestinal (Abdomen): normal bowel sounds, soft, nontender, no hepatosplenomegaly Musculoskeletal: No pedal edema Neurologic: PERRL, EOMI, accommodation nl, no face palsy, no dysarthria Psychiatric: Alert and oriented to person only Confused Results & Data Results & Data Vital Signs (Past 12 Hours) Vital Signs Temp Pulse Pulse Resp BP BP Pulse Ox 11/08/23 09:04 150 H 11/08/23 07:38 36.8 C 69 16 152/63 H 95 11/08/23 07:17 11/08/23 07:09 70 11/08/23 02:51 36.5 C 71 18 148/64 H 90 11/08/23 02:00 O2 Del Method O2 Del Method O2 Flow Rate 11/08/23 09:04 11/08/23 07:38 Room Air 11/08/23 07:17 Nasal Cannula 3 11/08/23 07:09 11/08/23 02:51 Nasal Cannula 2.5 11/08/23 02:00 Nasal Cannula Laboratory Results Abnormal lab results 11/08/23 Range/Units 05:33 RBC 3.90 L (4.70-6.10) M/uL Hgb 12.7 L (14.0-18.0) g/dl Hct 39.1 L (42.0-52.0) % MCV 100.3 H (80.0-100.0) fL RDW Std Deviation 59.7 H (36.4-46.3) fL RDW Coeff of Sawyer 16.3 H (11.5-14.5) % PT 17.3 H (9.0-12.0) Seconds INR 1.7 H (0.9-1.1) Chloride 110 H (98-107) mmol/L BUN 27 H (6-23) mg/dl Glucose 101 H (70-99(Fasting)) mg/dl Calcium 8.4 L (8.6-10.3) mg/dl (2) Bilateral pneumonia Lung location: unspecified part of lung Pneumonia type: due to unspecified organism Qualified Code(s): J18.9 - Pneumonia, unspecified organism (6) Hypertension Hypertension type: essential hypertension Qualified Code(s): I10 - Essential (primary) hypertension (8) CAD (coronary artery disease) Associated angina: without angina Coronary Disease-Associated Artery/Lesion type: [place] artery [place] vs. transplanted heart: [place] heart Qualified Code(s): I25.10 - Atherosclerotic heart disease of [place] coronary artery without angina pectoris (9) Atrial fibrillation Atrial fibrillation type: unspecified Qualified Code(s): I48.91 - Unspecified atrial fibrillation (11) Hyperlipidemia Hyperlipidemia type: unspecified Qualified Code(s): E78.5 - Hyperlipidemia, unspecified
[2023-11-08] MEDS: QUEtiapine FUMARATE 25 MG TABLET PO ONE (11:12)
[2023-11-09] MEDS: METOPROLOL TARTRATE 1 MG/ML VIAL IV STA (00:29)
[2023-11-09 07:11] LABS: Hematocrit (blood only) 39.9 % (42.0-52.0); Mean Corpuscular Hgb Conc 32.6 g/dL (32.0-36.0); Mean Corpuscular Volume 101.3 fL (80.0-100.0); Mean Platelet Volume 9.7 fL (9.4-12.4); Platelet Count 169 K/uL (130-400); RDW Coefficient of Variation 16.1 % (11.5-14.5); RDW Standard Deviation 60.9 fL (36.4-46.3); Red Blood Count 3.94 M/uL (4.70-6.10); White Blood Count 9.56 K/ul (4.8-10.8)
[2023-11-09 07:33] LABS: BUN Creatinine Ratio 21.7 (10-20); Calcium 8.8 mg/dl (8.6-10.3); Creatinine Clr Calc Pharmacy 31.3 ml/min; Est GFR (African American) 52.5 ml/min; Est GFR (Non-African American) 45.3 ml/min; Magnesium 2.1 mg/dl (1.7-2.4); Potassium 4.1 mmol/L (3.5-5.1)
[2023-11-09 07:35] LABS: INR 1.7 (0.9-1.1); Prothrombin Time 17.9 Seconds (9.0-12.0)
--- NOTE | 2023-11-09 11:19 | Hospitalist Progress Note ---
Date of Service November 09, 2023 Assessment & Plan (1) Generalized weakness: (2) Bilateral pneumonia: Plan: 88 year old male with PMH chronic atrial fibrillation, history of ischemic cardiomyopathy, pacemaker in place, CAD s/p CABG, HTN, HLD, pulmonary fibrosis, COPD, dementia, BPH, arthritis, LOIS, CKD III, and others listed below presented to ER with c/o lower abdominal discomfort x 1 day. Denies fever/chills, vomiting, diarrhea, CP, SOB. chronic cough. In ER afebrile, vitals stabe. No Leukocytosis, lactate procalcitonin WNL, BNP: 666. INR therapeutic. Bio[employer] respiratory panel negative CT abdomen pelvis: Progressive patchy bibasilar airspace opacities. This likely represents a pneumonia. Pulmonary edema could also a similar appearance. Trace bilateral pleural effusions and cardiomegaly. Mild progression of the subcarinal and bilateral hilar lymphadenopathy. Stable 9 mm right middle lobe pulmonary nodule. CT chest reviewed interstitial edema, multifocal airspace which could be pulm edema vs infectious CT Head no acute findings Patient has known oropharyngeal dysphagia with silent aspiration EDUCATIONAL DIAGNOSTICIAN eval noted Daughter Xochitl agreed to permissive aspiration Currently on Unasyn and doxycycline for Aspiration Pneumonia Aspiration precautions May need oxygen prn going forward PT/OT eval noted Fall precautions (3) Abdominal pain: Plan: CT Abd/pelvis: No acute abnormalities Resolved (4) Neck pain: Plan: CT C-spine noted degenerative changes without evidence of acute bony injury Continue topical diclofenac and home tramadol as needed (5) Ischemic cardiomyopathy: (6) Hypertension: (7) Pacemaker: (8) CAD (coronary artery disease): Plan: History CAD, history [place] in 1983. S/p CABG. Pacemaker in place Continue aspirin, atorvastatin, Overnight of 11/05, Isosorbide, metoprolol succinate reduced and Entresto held by Artificial Stone Setter due to syncopal episode with borderline BP Vol status is tough to determine Considering findings, syncopal episode with BP and med adjustment, Cardiology was consulted Respiratory status and renal function improved with IV lasix. Hence possible component of Acute on chronic heart failure with preserved ejection fractioin Resume home po lasix Card danya noted Currently on Entresto 0.5 tab BID. Currently back to home dose Metoprolol Continue reduced dose of imdur Based on BP trend will likely dc on current doses and patient can follow up with his Credit Negotiator (9) Atrial fibrillation: Plan: Anticoagulated on Coumadin INR: still 1.7 today Will give 5mg of warfarin today and resume home dose tomorrow Continue metoprolol succinate, digoxin (10) CKD (chronic kidney disease), stage III: Plan: Cr: 1.38 Monitor renal functions (11) Hyperlipidemia: Plan: Continue atorvastatin (12) Dementia: Plan: Continue Donepezil, memantine Reorient as needed Seroquel 25mg po HS prn (13) COPD (chronic obstructive pulmonary disease): (14) Pulmonary fibrosis: Plan: History of COPD, pulmonary fibrosis per chart review (15) BPH (benign prostatic hyperplasia): Plan: Continue finasteride DVT Prophylaxis -Warfarin Called daughter Xochitl and updated her We also had some GOC discussion. She understands patient will continue to have aspiration and declining health status She stated that her and family are beginning to have assisted GOC discussions DNR/DNI Follows with Dr Conrad for routine care Plan to possible dc back to facility tomorrow I spent a total of 50 minutes coordinating, documenting and providing care for this patient excluding time spent in performance of separately billed services Admission and Anticipated Discharge Date Admission Date: November 05, 2023 Subjective Patient seen and examined He is awake and alert to person only Confused ROS limited due to mental status Physical Exam Constitutional: + well hydrated; no acute distress Eyes: PERRL, conjunctivae normal, anicteric sclerae ENMT: external ear and nose normal, oropharynx normal Respiratory: normal respiratory effort; no respiratory distress + few crackles Cardiovascular: Rate/Rhythm: regular rate S1 S2 Gastrointestinal (Abdomen): normal bowel sounds, soft, nontender, no hepatosplenomegaly Musculoskeletal: No pedal edema Neurologic: PERRL, EOMI, accommodation nl, no face palsy, no dysarthria Results & Data Results & Data Vital Signs (Past 12 Hours) Vital Signs Temp Pulse Pulse Resp BP BP Pulse Ox 11/09/23 08:43 36.8 C 70 16 107/47 L 97 11/09/23 07:53 11/09/23 06:48 70 11/09/23 03:27 84 18 101/63 95 11/09/23 00:46 70 92/51 L 11/09/23 00:29 70 127/61 11/09/23 00:14 127/61 11/08/23 23:59 87/55 L O2 Del Method O2 Flow Rate 11/09/23 08:43 Nasal Cannula 2 11/09/23 07:53 Nasal Cannula 3 11/09/23 06:48 11/09/23 03:27 Room Air 11/09/23 00:46 11/09/23 00:29 11/09/23 00:14 11/08/23 23:59 Laboratory Results Abnormal lab results 11/09/23 Range/Units 06:44 RBC 3.94 L (4.70-6.10) M/uL Hgb 13.0 L (14.0-18.0) g/dl Hct 39.9 L (42.0-52.0) % MCV 101.3 H (80.0-100.0) fL RDW Std Deviation 60.9 H (36.4-46.3) fL RDW Coeff of [place]yer 16.1 H (11.5-14.5) % PT 17.9 H (9.0-12.0) Seconds INR 1.7 H (0.9-1.1) Chloride 111 H (98-107) mmol/L BUN 30 H (6-23) mg/dl BUN/Creatinine Ratio 21.7 H (10-20) (2) Bilateral pneumonia Lung location: unspecified part of lung Pneumonia type: due to unspecified organism Qualified Code(s): J18.9 - Pneumonia, unspecified organism (6) Hypertension Hypertension type: essential hypertension Qualified Code(s): I10 - Essential (primary) hypertension (8) CAD (coronary artery disease) Coronary Disease-Associated Artery/Lesion type: [place] artery [place] vs. transplanted heart: hopi heart Associated angina: without angina Qualified Code(s): I25.10 - Atherosclerotic heart disease of hopi coronary artery without angina pectoris (9) Atrial fibrillation Atrial fibrillation type: unspecified Qualified Code(s): I48.91 - Unspecified atrial fibrillation (11) Hyperlipidemia Hyperlipidemia type: unspecified Qualified Code(s): E78.5 - Hyperlipidemia, unspecified
[2023-11-09] MEDS: WARFARIN SOD 5 MG TAB PO SCH (15:04)
[2023-11-09] MEDS: AMPICILLIN/SULBACTAM SOD 3,000 MG in SODIUM CHLOR 0.9% MINI-B 100 ML IV SCH (17:04)
[2023-11-10 06:42] LABS: Hematocrit (blood only) 39.4 % (42.0-52.0); Hemoglobin 12.7 g/dl (14.0-18.0); Mean Corpuscular Hemoglobin 32.8 pg (25.0-34.0); Mean Corpuscular Hgb Conc 32.2 g/dL (32.0-36.0); Mean Corpuscular Volume 101.8 fL (80.0-100.0); Mean Platelet Volume 9.7 fL (9.4-12.4); Platelet Count 189 K/uL (130-400); RDW Coefficient of Variation 16.1 % (11.5-14.5); RDW Standard Deviation 60.5 fL (36.4-46.3); Red Blood Count 3.87 M/uL (4.70-6.10); White Blood Count 8.61 K/ul (4.8-10.8)
[2023-11-10 07:02] LABS: BUN Creatinine Ratio 21.2 (10-20); Calcium 8.9 mg/dl (8.6-10.3); Creatinine Clr Calc Pharmacy 38.7 ml/min; Est GFR (African American) 66.9 ml/min; Est GFR (Non-African American) 57.7 ml/min; Potassium 4.2 mmol/L (3.5-5.1)
[2023-11-10 07:13] LABS: INR 2.2 (0.9-1.1)
[2023-11-10] MEDS: FUROSEMIDE 40 MG TAB PO SCH (07:53)
[2023-11-10] MEDS ORDERED: FUROSEMIDE 40 MG TAB PO SCH (09:00)
--- NOTE | 2023-11-10 15:24 | Discharge Summary ---
Date of Service November 10, 2023 Admission HPI Per Admitting Provider Patient is 88 year old male with PMH chronic atrial fibrillation, history of ischemic cardiomyopathy, pacemaker in place, CAD s/p CABG, HTN, HLD, pulmonary fibrosis, COPD, dementia, BPH, arthritis, LOIS, CKD III, and others listed below presented to ER with c/o lower abdominal discomfort x 1 day. History obtained from patient and assistance from patient's daughter secondary to history of dementia. Patient states this morning with discomfort across lower abdomen that is nonradiating. He thinks it may have started yesterday, patient's daughter states that he did not voice any abdominal complaint yesterday. She states assisted living facility said that patient has been more fatigued and seemed more weak today and reported that patient reported some dysuria to them this morning. Currently patient is denying any dysuria and just states he had "discomfort" to the lower abdomen. He denies any nausea or vomiting. He reports he has been eating and drinking normally. He states last bowel movement was yesterday. Denies any noted melena, hematochezia. Daughter states in past patient was told he should have thickened liquids however patient chooses to not have liquids thickened. She notes for years patient seems to clear his throat and sometimes cough after drinking liquids. Denies any noted choking on food. Reports chronic nonproductive cough. Has not noticed any increased cough or sputum production. Patient and daughter state for the past month patient has been having intermittent left neck pain and headaches. States this morning patient complaining of headache. Currently patient denies any headache but reports some discomfort to left lateral neck with movement of his head. Denies any upper extremity paresthesias or weakness. Denies any recent fall or known injury. Patient has wheeled walker with seat that he sometimes uses. Denies fever/chills, diaphoresis, dizziness, syncope, vision changes, CP, SOB, orthopnea, palpitations, hemoptysis, sore throat, otalgia, rhinorrhea, extremity edema, rashes, hematuria, urinary frequency. Admission Exam Per Admitting Provider General: no distress, WDWN Head: normocephalic, atraumatic Eyes: conjunctiva non-injected, anicteric ENT: normal inspection external ears, nose, mucous membranes moist Neck: supple, trachea midline,+slight tender to palpation left posterior neck, ROM neck intact with some reproducible tenderness to Lungs: no respiratory distress, O2 sat 98% RA, speaking in sentences, +rales bases CV: RRR, + murmur, no JVD, no pretibial edema Abd: normal BS, soft, diffuse tenderness to palpation without rebound or guarding Ext: no cyanosis, no calf tenderness Neuro: Alert, oriented to person and place, no focal deficits noted, normal affect Skin: warm, dry Principal Diagnosis Acute respiratory failure with hypoxia Aspiration Pneumonia Hypotension Syncope Chronic atrial fibrillation Discharge Exam Constitutional + well hydrated; no acute distress Eyes PERRL, conjunctivae normal, anicteric sclerae ENMT external ear and nose normal, oropharynx normal Respiratory normal respiratory effort; no respiratory distress Diminished breath sounds Cardiovascular Rate/Rhythm: regular rate S1 S2 Gastrointestinal (Abdomen) normal bowel sounds, soft, nontender, no hepatosplenomegaly Musculoskeletal No pedal edema Neurologic PERRL, EOMI, accommodation nl, no face palsy, no dysarthria Psychiatric Alert and oriented to person only. Confused Discharge Data Allergies Allergy/AdvReac Type Severity Reaction Status Date / Time oxycodone Allergy Severe HALLUCINATI Verified 03/07/23 16:15 ONS TASHA Inhibitors AdvReac Intermediate Cough Verified 03/07/23 16:15 rosuvastatin AdvReac Intermediate CONSTIPATIO Verified 03/07/23 16:15 N niacin AdvReac Mild FLUSHING Verified 03/07/23 16:15 paroxetine AdvReac Mild drowsiness Verified 03/07/23 16:15 Consultations 11/05/23 13:10 ED Decision to Admit Stat 11/07/23 07:45 Consult Cardiology Routine Ordered Studies 11/05/23 09:51 CT abd pelvis IV con only Stat 11/05/23 11:06 CT head/brain wo con Stat 11/05/23 14:28 CT chest diagnostic wo con Urgent 11/05/23 14:29 CT cervical spine wo con Urgent 11/06/23 02:00 CT abd pelvis wo con Urgent Hospital Course (1) Generalized weakness: (2) Bilateral pneumonia: 88 year old male with PMH chronic atrial fibrillation, history of ischemic cardiomyopathy, pacemaker in place, CAD s/p CABG, HTN, HLD, pulmonary fibrosis, COPD, dementia, BPH, arthritis, LOIS, CKD III, and others listed below presented to ER with c/o lower abdominal discomfort x 1 day. Denies fever/chills, vomiting, diarrhea, CP, SOB. chronic cough. In ER afebrile, vitals stabe. No Leukocytosis, lactate procalcitonin WNL, BNP: 666. INR therapeutic. [employer] respiratory panel negative CT abdomen pelvis: Progressive patchy bibasilar airspace opacities. This likely represents a pneumonia. Pulmonary edema could also a similar appearance. Trace bilateral pleural effusions and cardiomegaly. Mild progression of the subcarinal and bilateral hilar lymphadenopathy. Stable 9 mm right middle lobe pulmonary nodule. CT chest reviewed interstitial edema, multifocal airspace which could be pulm edema vs infectious CT Head no acute findings Patient has known oropharyngeal dysphagia with silent aspiration She was evaluated by PARK GUIDE Daughter Xochitl agreed to permissive aspiration Was treated with Unasyn and doxycycline for Aspiration Pneumonia inpatient Switched to Augmentin and doxycycline on dc Aspiration precautions 2 step today showed patient requires 2L at rest and 6L with activity (3) Abdominal pain: CT Abd/pelvis: No acute abnormalities Resolved (4) Neck pain: CT C-spine noted degenerative changes without evidence of acute bony injury Continue topical diclofenac and home tramadol as needed (5) Ischemic cardiomyopathy: (6) Hypertension: (7) Pacemaker: (8) CAD (coronary artery disease): History CAD, history [place] in 1983. S/p CABG. Pacemaker in place Continue aspirin, atorvastatin, Overnight of 11/05, Patient had a syncopal episode and was noted to be hypotensive at the time Isosorbide, metoprolol succinate reduced and Entresto held by Car Whacker at the time Vol status is tough to determine Considering findings, syncopal episode with BP and med adjustment, Cardiology was consulted Respiratory status and renal function improved with IV lasix. Hence possible component of Acute on chronic heart failure with preserved ejection fraction Diuretics were later transitioned to home lasix Patient discharged on half his previous Entresto and half his previous imdur dose Currently on Entresto 0.5 tab BID. Continue reduced dose of imdur 30mg HS Continue prior home dose of metoprolol Patient will need to follow up with Cardiology oupatient (9) Atrial fibrillation: INR: still 2.2 today Continue metoprolol succinate, digoxin and warfarin (10) CKD (chronic kidney disease), stage III: Cr: 1.18 (11) Hyperlipidemia: Continue atorvastatin (12) Dementia: Continue Donepezil, memantine Reorient as needed (13) COPD (chronic obstructive pulmonary disease): (14) Pulmonary fibrosis: History of COPD, pulmonary fibrosis per chart review (15) BPH (benign prostatic hyperplasia): Continue finasteride Total Time Total Time Spent Total Time Spent (In Minutes): 35 Total Time Includes: Examination of the Patient, Discharge Planning and Medication Reconciliation Discharge Plan Discharge Items Patient Disposition: Transfer Residential Fac Reason For Visit: Weakness, abdominal pain Discharge Diagnosis: Acute respiratory failure with hypoxia Aspiration Pneumonia Hypotension Syncope Chronic atrial fibrillation Activity: Resume your previous activity Non-emergency contact: Primary Care Provider and Pershing Missile Crewmember Call non-emergency contact if: you have any medication questions and your symptoms worsen Follow-up/Referrals: [facility] [Primary Care Provider] - Diet: Heart Healthy and Low Sodium (2gm) Diet Texture: Dental soft (bite-sized) Diet Comment: Aspiration precautions Addtl Attending Provider Instructions: Mr Coffey You were brought to the hospital for abdominal pain, weakness and cough. You were managed for Aspiration pneumonia You are discharged on one more day of antibiotics to complete treatment. You are currently being discharged on 2L of oxygen at rest and 6L with activity. You had a syncopal (passing out) episode with low blood pressure in the hospital and adjustments were made to your home medicines. Your Isosorbide mononitrate was reduce to 30mg at bedtime. Your Entresto was reduced to half tab (0.5 tab) twice a day Pleasure ensure follow up with your Primary Doctor and Cardiology It was a pleasure taking care of you. Pending Studies at Discharge: No Stand-Alone Forms: My [facility] Skilled Items Patient informed of condition?: Yes DNR: Yes Discharge Level of Care: Other Communicable Disease: No Discharge Prognosis: Stable Lines: None Urinary Catheter: No Medications and DC Order Prescriptions: New doxycycline hyclate 100 mg Capsule 100 mg PO BID Qty: 3 0RF Continued loratadine 10 mg tablet 10 mg PO DAILY pantoprazole 40 mg Tablet,Delayed Release (Dr/Ec) 40 mg PO QAM atorvastatin 40 mg tablet 40 mg PO DAILY gabapentin 300 mg capsule 300 mg PO TID Rx Instructions: Morning, Mid day, and bed time. aspirin 81 mg Tablet,Delayed Release (Dr/Ec) 81 mg PO DAILY multivitamin [Daily-Selena] Tablet 1 tab PO DAILY PreserVision AREDS-2 250-90-40-1 mg Capsule 1 tab PO DAILY donepezil 10 mg tablet 10 mg PO HS alendronate 70 mg tablet 70 mg PO WK Rx Instructions: SUNDAYS digoxin 125 mcg (0.125 mg) tablet 125 mcg PO 5XWK Rx Instructions: On Friday, Friday, Friday, and Friday finasteride 5 mg tablet 5 mg PO DAILY metoprolol succinate 100 mg tablet extended release 24 hr 50 mg PO BID Rx Instructions: HOLD FOR SBP <90 diclofenac sodium 1 % Gel 2 g TOPICAL TID Rx Instructions: apply to affected area 0600,1400,2000 acetaminophen 500 mg Tablet 1,000 mg PO BID Rx Instructions: at 6AM and 2PM for pain. *Max 3gms APAP in 24 hours* sertraline 25 mg tablet 25 mg PO DAILY nitroglycerin 0.4 mg Tablet, Sublingual 0.4 mg sublingual .Q 5 MIN PRN (Reason: Chest Pain) Rx Instructions: take 1 tablet under tongue every 5 min's as needed for chest pain x 3 doses, if no relief call 911 calcium carbonate [Calcium 600] 600 mg calcium (1,500 mg) Tablet 600 mg PO QDL memantine [Namenda] 10 mg Tablet 10 mg PO BID Qty: 30 1RF warfarin 3 mg tablet 3 mg PO DAILY Tylenol PM Extra Strength 25-500 mg Tablet 2 tab PO HS cholecalciferol (vitamin D3) 125 mcg (5,000 unit) Capsule 125 mcg PO DAILY coenzyme Q10 [Co Q-10] 200 mg Capsule 200 mg PO DAILY Gluco/Chond/Msm/Turm tablet 3 tab PO BID Menthol 4% Topical Analgesic See Rx Instructions .ROUTE .COMPLEX PRN (Reason: Pain) Rx Instructions: Use as directed as needed for muscle pain furosemide 40 mg tablet 40 mg PO 3XWK Rx Instructions: On Friday, Friday and Friday Changed tramadol 50 mg tablet 50 mg PO Q4 PRN (Reason: Pain) Qty: 0 0RF isosorbide mononitrate 60 mg Tablet Extended Release 24 Hr 30 mg PO HS Qty: 30 0RF Entresto 24-26 mg tablet 0.5 tab PO BID Qty: 30 0RF Rx Instructions: hold for BP<90 Discharge Orders: Discharge Order (Routine); Ordered 11/10/23 Ordered By: Candida Kinney Admission Data Admit Date/Time: 11/05/23 13:42 Attending Provider: Candida Kinney I. Admit Provider: Johnny Higuera Primary Care Provider: Jeffrey Alonso[facility] Other Providers: Johnny Higuera; Farhan Hagen
--- NOTE | 2023-11-10 15:54 | Electrocardiogram Report ---
Test Reason : Blood Pressure : / mmHG Vent. Rate : 070 BPM Atrial Rate : 070 BPM P-R Int : 400 ms QRS Dur : 128 ms QT Int : 442 ms P-R-T Axes : 000 -55 090 degrees QTc Int : 477 ms V-paced rhythm Abnormal ECG When compared with ECG of 07-NOV-2023 18:04, No significant change was found Confirmed by Kvng Wright ([id number]) on 11/10/2023 3:54:26 PM Referred By: REFERRED SELF Confirmed By:De Wright
[2023-11-10] MEDS: WARFARIN SOD 3 MG TAB PO SCH (16:10)
== END 2023-11-10 16:33 | disposition home or self-care (01) | DRG 177 ==
LOC: ED 09:36 → 2N 13:42 → SUATTDRO 13:42 → 2N 16:10

== ENCOUNTER 2023-11-12 12:18 | Inpatient (IN) ==
[2023-11-12 13:56] LABS: Base Excess VBG 0.2 mEq/L; HCO3 VBG 27 mmol/L; Oxygen Saturation VBG < 60.0 %; PCO2 VBG 51 mmHg (38-50); PO2 VBG 24 mmHg; pH VBG 7.33 (7.36-7.41)
[2023-11-12 14:07] LABS: Basophils # (auto) 0.06 K/uL (0.00-0.20); Basophils % (auto) 0.7 %; Eosinophils % (auto) 7.7 %; Hematocrit (blood only) 43.5 % (42.0-52.0); Immature Granulocytes # (auto) 0.03 K/uL (0.01-0.20); Immature Granulocytes % (auto) 0.3 %; Lymphocytes # (auto) 0.76 K/uL (1.20-3.40); Lymphocytes % (auto) 8.4 %; Mean Corpuscular Hemoglobin 32.6 pg (25.0-34.0); Mean Corpuscular Hgb Conc 32.2 g/dL (32.0-36.0); Mean Corpuscular Volume 101.4 fL (80.0-100.0); Mean Platelet Volume 10.4 fL (9.4-12.4); Monocytes % (auto) 5.5 %; Neutrophils # (auto) 7.05 K/uL (1.40-6.50); Neutrophils % (auto) 77.4 %; Platelet Count 196 K/uL (130-400); RDW Coefficient of Variation 16.3 % (11.5-14.5); RDW Standard Deviation 60.8 fL (36.4-46.3); Red Blood Count 4.29 M/uL (4.70-6.10)
--- NOTE | 2023-11-12 14:12 | CT Scan Report ---
CT head/brain wo con CLINICAL HISTORY: 88 years-old Male with syncope, weak. Acute syncope with weakness TECHNIQUE: Multiple axial CT images of the head were obtained without contrast. A dose lowering tech nique was utilized adhering to the principles of ALARA. CT DOSE: 703.85 mGy.cm COMPARISON: 11/05/2023 FINDINGS: No acute intracranial hemorrhage, midline shift, intracranial mass, hydrocephalus, territorial ischem ia or abnormal extra-axial collection. Involutional changes with chronic microvascular ischemic disea se. Chronic left parieto-occipital infarct with encephalomalacia redemonstrated. The calvarium is intact. Prior bilateral lens repair. The paranasal sinuses, mastoid air cells, and m iddle ear cavities are clear. IMPRESSION: No acute intracranial abnormality. ACT 112: Negative or not required by law. The above report was generated using voice recognition software. It may contain grammatical, syntax o r spelling errors. Electronically signed by: Luke Kaur M.D. 11/12/2023 2:10 PM
[2023-11-12 14:25] LABS: Albumin Globulin Ratio 0.8 (0.9-2); BUN Creatinine Ratio 23.8 (10-20); Calcium 9.8 mg/dl (8.6-10.3); Creatinine Clr Calc Pharmacy 29.8 ml/min; Est GFR (African American) 48.7 ml/min; Globulin 4.8 gm/dl (2.5-4.0); Magnesium 2.1 mg/dl (1.7-2.4); Potassium 4.9 mmol/L (3.5-5.1); Total Protein 8.8 gm/dl (6.0-8.3)
--- NOTE | 2023-11-12 14:26 | XRay Report ---
XR chest 1V portable HISTORY: 88 years-old Male syncope, sob acute syncope with shortness of breath COMPARISON: 11/06/2023 TECHNIQUE: AP view the chest FINDINGS: Cardiac silhouette is enlarged. Median sternotomy with cardiac valvular prosthesis. Left subclavian p acer. No pneumothorax. Small pleural effusions. Mixed interstitial and alveolar opacities redemonstra saima. Bones appear grossly intact. IMPRESSION: 1. Cardiomegaly with persistent pulmonary edema and small pleural effusions. 2. Chronic interstitial lung disease. ACT 112: Negative or not required by law. The above report was generated using voice recognition software. It may contain grammatical, syntax o r spelling errors. Electronically signed by: Luke Kaur M.D. 11/12/2023 2:24 PM
[2023-11-12 14:33] LABS: INR 3.5 (0.9-1.1); Partial Thromboplastin Ratio 1.3; Partial Thromboplastin Time 34 Seconds (21-31); Prothrombin Time 33.9 Seconds (9.0-12.0)
[2023-11-12 14:40] LABS: Thyroid Stimulating Hormone 1.568 uIu/ml (0.300-4.500)
--- NOTE | 2023-11-12 14:41 | Electrocardiogram Report ---
Test Reason : Blood Pressure : / mmHG Vent. Rate : 071 BPM Atrial Rate : 000 BPM P-R Int : 000 ms QRS Dur : 138 ms QT Int : 418 ms P-R-T Axes : 000 -64 097 degrees QTc Int : 454 ms V-paced rhythm Confirmed by Kvng Wright ([id number]) on 11/12/2023 2:40:53 PM Referred By: [facility] Confirmed By:De Wright
--- NOTE | 2023-11-12 15:02 | Emergency Department Note ---
Impression & Plan Syncope and collapse, Chronic atrial fibrillation, Supratherapeutic INR, Weakness ED Provider Note Provider: Edgar Slade MD DATE OF SERVICE: 11/12/2023 CHIEF COMPLAINT: Weakness, syncope HISTORY OF PRESENT ILLNESS: Patient is a 88-year-old gentleman history of TAVR, A-fib, CKD, COPD, heart failure, spinal stenosis maintained on Plavix as well as digoxin presenting here today after a syncopal episode at [facility]. Patient resides there for personal care. Was recently hospitalized for pneumonia here in since discharged 2 days ago has had continued decline and weakness. Not eating much. Somewhat lethargic according to family members. They were helping him up and change today and patient passed out and turned blue. Staff were able to catch him he did not fall. Then slowly came around. Patient very fatigued. Chronically on oxygen but they have had to turn it up a little bit at the facility. Used to be on CPAP but not anymore. Denies significant discomfort or pain to me at this time. No fever reported. Decreased intake again reported. No significant leg swelling reported. They did get a report from the hematologist that the pacemaker did alert cardiology staff that he seemed to have increased fluid. PAST MEDICAL HISTORY: As noted above MEDICATIONS: Reviewed medication list SOCIAL HISTORY: Resides at [facility] currently PHYSICAL EXAM: GENERAL: alert and oriented in no acute distress on stretcher Head: normocephalic and atraumatic EYES: No injection, discharge or icterus. EOMI. NECK: Trachea midline. ENT: Mucous membranes pink and moist. LUNGS: Airway patent. No retractions. Breath sounds clear diminished lung bases however HEART: Regular rate and rhythm. No chest wall tenderness. Mildly decreased Light perfusion distally. ABDOMEN: Soft and non-tender, without guarding or rebound. SKIN: Acyanotic, warm, dry, without rashes EXTREMITIES: Without swelling, tenderness or deformity NEUROLOGICAL: No aphasia. No facial droop or slurred speech. Generalized weakness nonfocal. EK bpm right bundle branch block with a left axis and paced rhythm. No acute ST segment elevation. QTc 454. CONTINUOUS CARDIAC MONITORING: was ordered and showed a heart rate of 70s bpm in paced rhythm occasional PVC Patient's laboratory studies and imaging reviewed. Differential includes Infection, dehydration, metabolic abnormality, hypo/hyperglycemia, electrolyte disturbance, anemia, hypoxia, cardiac sources, intracerebral event, toxicologic, neurologic, as well as other pathologies. IMPRESSION/MEDICAL DECISION MAKING: Patient week with decline since discharge from here with pneumonia. X-ray appears to show some fluid overload and no leukocytosis today. No significant anemia. INR slightly supratherapeutic at 3.5 and I doubt PE or DVT given his anticoagulated status. VBG 7.33 with a CO2 of 51 not severely hypercarbic. Will wean oxygen some to prevent over oxygenation. Little bit of CKD worsened today at 1.4. Troponin slightly elevated at 40 today but BNP is somewhat better at 41. Digoxin therapeutic. TSH normal. Evidence of hepatitis. Denies significant pain. Question fluid status issues. Obviously somewhat difficult to truly know his fluid status as he does not appear swollen but does have pulmonary edema on the x-ray. Has had some decreased intake. CT of the head completed given the syncope and anticoagulated status without acute findings per report. Not having focal deficits. Pacemaker interrogation without significant findings beyond indicating possible fluid overload. Will discuss with the hospitalist further observation here. May need more additional rehab services beyond personal-care currently. Discussed with patient and daughter and they are agreeable to plan to stay for observation. DIAGNOSIS: Syncope, weakness, CHF, YEMI DISPOSITION: Hospitalist will evaluate Patient was agreeable with this plan. Past Med/Surg History Problem List (Updated 11/12/23 @ 17:05 by Edgar Slade M.D.) Weakness (Acute) Syncope and collapse (Acute) Supratherapeutic INR (Acute) Acute on chronic diastolic CHF (congestive heart failure) Status post transcatheter aortic valve replacement (TAVR) using bioprosthesis Chronic atrial fibrillation (Acute) Syncope and collapse Neck pain BPH (benign prostatic hyperplasia) Pulmonary fibrosis COPD (chronic obstructive pulmonary disease) Dementia Hyperlipidemia CKD (chronic kidney disease), stage III Atrial fibrillation Abdominal pain Elevated BUN (Acute) Bilateral pneumonia (Acute) Acute respiratory failure with hypoxia Hypoxia (Acute) Hypotension Elevated troponin COVID (Acute) Adult failure to thrive (Acute) Generalized weakness (Acute) Recurrent falls (Acute) Diffuse abdominal pain (Acute) Weakness Nocturnal hypoxemia Sensorineural hearing loss (SNHL) of both ears Pacemaker Medtronic, generator change 10/05/19 at [facility]. Medtronic. Last interrogation 02/02/20. Ischemic cardiomyopathy S/P BiV pacer (NOT defibfillator) 2012, with generator change 10/2019 at [facility]. 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 No significant prosthesis stenosis or regurg on 12/2019 echo. Severe mitral regurgitation with eccentric jet posteriorly directed. CAD (coronary artery disease) Remote [place] 1983 with CABG x 2 (BELLAMY-LAD, SVG-RCA). 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 Follows with [facility] cardiology. Chronic kidney disease (CKD), stage II (mild) Hypertension Chronic systolic heart failure Secondary hyperparathyroidism Raynaud's disease Moderate obstructive sleep apnea Polycythemia Aortic stenosis Elevated prostate specific antigen (PSA) Vasomotor rhinitis (Acute) Spinal stenosis (Acute) Restless leg syndrome (Acute) Osteopenia (Acute) Nasal polyp (Acute) Insomnia (Acute) Hearing loss (Acute) Gout (Acute) Chronic reflux esophagitis (Acute) Anticoagulant long-term use Symptomatic bradycardia Hernia, inguinal, left Status post placement of cardiac pacemaker (~2013) 2013, [employer] - FOLLOWS WITH [facility] LAST CHECK 05/2018 AND NEXT CHECK WILL BE 10/2018 Mitral valve disorder Medical History LOIS (obstructive sleep apnea) YEMI (acute kidney injury) Ventricular tachycardia Epistaxis Hypoxia Congestive heart failure, NYHA class III Hospitalization 10/2017, 02/2018 for acute on chronic CHF Sleep apnea WITH CPAP Arthritis History of TIA (transient ischemic attack) OVER 5 YEARS AGO AND NO RESIDUAL EFFECTS Hx of myocardial infarction 1983 AND HAD CABG X2 Surgical History S/P left inguinal hernia repair (04/04/20) Open Sliding indirect Left Inguinal Hernia Repair, Direct weakness,with Mesh Placement, Excision Lipoma of Cord Dr. Morataya 04/04/2020 History of repair of inguinal hernia (11/06/18) Incarcerated right inguinal hernia repair and femoral hernia repair 11/06/18 Dr. Cho H/O carotid endarterectomy (~1997) 1997 on right Hx of aortic valve replacement (~05/2018) [facility] 05/2018 Status post right knee replacement S/P hernia repair RIGHT INGUINAL HERNIA REPAIR Colonoscopy (08/25/12) History of coronary artery bypass graft x 2 (~1983) 1983 - FOLLOWS WITH [facility] Stented coronary artery (~2014) 2014 ONE STENT WAS PLACED AND FOLLOWS WITH [facility] Family History Other Heart disease Social History Smoking Status: Unknown if ever smoked Tobacco Type: Cigarettes Second Hand Exposure: No; Do You Dip or Chew Tobacco: No; Hx Alcohol Use: Yes Alcohol type: hard liquor Hx Substance Use: No Preferred Language: Czech Communication Ability: Impaired Director Medical Required: No Beliefs That Will Affect Care: None Current Living Situation: Personal Care Facility Current Living Situation Comment: [facility] current occupational status: retired Feels Safe at Home: Yes Assistive Devices: Walker Allergies Allergies Allergy/AdvReac Type Severity Reaction Status Date / Time oxycodone Allergy Severe HALLUCINATI Verified 03/07/23 16:15 ONS TASHA Inhibitors AdvReac Intermediate Cough Verified 03/07/23 16:15 rosuvastatin AdvReac Intermediate CONSTIPATIO Verified 03/07/23 16:15 N niacin AdvReac Mild FLUSHING Verified 03/07/23 16:15 paroxetine AdvReac Mild drowsiness Verified 03/07/23 16:15 Home Meds Home Medications Medication Instructions Recorded Confirmed pantoprazole 40 mg tablet,delayed 40 mg PO QAM 02/10/18 11/12/23 release loratadine 10 mg tablet 10 mg PO DAILY 12/04/18 11/12/23 atorvastatin 40 mg tablet 40 mg PO DAILY 10/09/20 11/12/23 gabapentin 300 mg capsule 300 mg PO TID 10/09/20 11/12/23 aspirin 81 mg tablet,delayed 81 mg PO DAILY 11/10/20 11/12/23 release acetaminophen 500 mg tablet 1,000 mg PO BID 03/01/23 11/12/23 alendronate 70 mg tablet 70 mg PO WK 03/01/23 11/12/23 calcium carbonate (Calcium 600) 600 mg PO QDL 03/01/23 11/12/23 diclofenac sodium 1 % topical gel 2 g topical TID pain 03/01/23 11/12/23 digoxin 125 mcg (0.125 mg) tablet 125 mcg PO 5XWK 03/01/23 11/12/23 donepezil 10 mg tablet 10 mg PO HS 03/01/23 11/12/23 finasteride 5 mg tablet 5 mg PO DAILY 03/01/23 11/12/23 metoprolol succinate 100 mg 50 mg PO BID 03/01/23 11/12/23 tablet,extended release 24 hr multivitamin (Daily-Selena tablet) 1 tab PO DAILY 03/01/23 11/12/23 nitroglycerin 0.4 mg sublingual 0.4 mg sublingual .Q 5 MIN PRN 03/01/23 11/12/23 tablet Chest Pain sertraline 25 mg tablet 25 mg PO DAILY 03/01/23 11/12/23 vit C 250 mg-vit E 90 mg-zinc 40 1 tab PO DAILY 03/01/23 11/12/23 mg-copper 1 ml-[id number] capsule (PreserVision AREDS-2) Gluco/Chond/Msm/Turm 3 tab PO BID 11/05/23 11/12/23 Menthol 4% Topical Analgesic See Rx Instructions .Route 11/05/23 11/12/23 .COMPLEX PRN Pain cholecalciferol (vitamin D3) 125 125 mcg PO DAILY 11/05/23 11/12/23 mcg (5,000 unit) capsule coenzyme Q10 200 mg capsule (Co 200 mg PO DAILY 11/05/23 11/12/23 Q-10) diphenhydramine 25 2 tab PO HS 11/05/23 11/12/23 mg-acetaminophen 500 mg tablet (Tylenol PM Extra Strength) furosemide 40 mg tablet 40 mg PO 3XWK 11/05/23 11/12/23 warfarin 3 mg tablet 3 mg PO DAILY 11/05/23 11/12/23 Previous Rx's Medication Instructions Recorded memantine 10 mg tablet (Namenda) 10 mg PO BID #30 tabs 02/12/22 doxycycline hyclate 100 mg capsule 100 mg PO BID #3 caps 11/10/23 isosorbide mononitrate 60 mg 30 mg (1/2 x 60 mg) PO HS #30 tabs 11/10/23 tablet,extended release 24 hr sacubitril 24 mg-valsartan 26 mg 0.5 tab PO BID #30 tabs 11/10/23 tablet (Entresto) tramadol 50 mg tablet 50 mg PO Q4 PRN Pain #0 tabs 11/10/23 Results & Data (ED) Vital Signs Vital Signs - 24 hr 11/12/23 12:28 11/12/23 12:32 11/12/23 12:33 Temperature 36.7 C Temperature Source Skin Pulse Rate 71 70 70 Pulse Rate from SpO2 Sensor Respiratory Rate 22 25 H Respiratory Effort / Characteristics Non-Labored Spontaneous Blood Pressure 144/60 H 144/60 H Blood Pressure Mean 88 88 Pulse Oximetry Oxygen Delivery Method Oxygen Flow Rate Sepsis Recent Fever Within 48 Hours No Sepsis New/Unexplained Change in Mental Status No Sepsis Action Taken by Nursing No Action Required 11/12/23 13:30 11/12/23 14:06 11/12/23 14:30 Temperature Temperature Source Pulse Rate 70 70 70 Pulse Rate from SpO2 Sensor 70 70 Respiratory Rate 20 18 18 Respiratory Effort / Characteristics Blood Pressure 141/67 H 146/73 H 137/66 Blood Pressure Mean 91 97 89 Pulse Oximetry 100 100 Oxygen Delivery Method Nasal Cannula Nasal Cannula Oxygen Flow Rate 4 4 Sepsis Recent Fever Within 48 Hours Sepsis New/Unexplained Change in Mental Status Sepsis Action Taken by Nursing 11/12/23 15:09 Temperature Temperature Source Pulse Rate 70 Pulse Rate from SpO2 Sensor 70 Respiratory Rate 20 Respiratory Effort / Characteristics Blood Pressure 137/63 Blood Pressure Mean 87 Pulse Oximetry 97 Oxygen Delivery Method Nasal Cannula Oxygen Flow Rate 4 Sepsis Recent Fever Within 48 Hours Sepsis New/Unexplained Change in Mental Status Sepsis Action Taken by Nursing Laboratory Data 11/12/23 13:44 11/12/23 13:44 Lab Results 11/12/23 11/12/23 Range/Units 13:44 15:03 WBC 9.10 (4.8-10.8) K/ul RBC 4.29 L (4.70-6.10) M/uL Hgb 14.0 (14.0-18.0) g/dl Hct 43.5 (42.0-52.0) % MCV 101.4 H (80.0-100.0) fL MCH 32.6 (25.0-34.0) pg MCHC 32.2 (32.0-36.0) g/dL RDW Std Deviation 60.8 H (36.4-46.3) fL RDW Coeff of [place]yer 16.3 H (11.5-14.5) % Plt Count 196 (130-400) K/uL MPV 10.4 (9.4-12.4) fL Immature Gran % (Auto) 0.3 % Neut % (Auto) 77.4 % Lymph % (Auto) 8.4 % Frio % (Auto) 5.5 % Eos % (Auto) 7.7 % Baso % (Auto) 0.7 % Neut # (Auto) 7.05 H (1.40-6.50) K/uL Lymph # (Auto) 0.76 L (1.20-3.40) K/uL Frio # (Auto) 0.50 (0.11-0.59) K/uL Eos # (Auto) 0.70 H (0.00-0.50) K/uL Baso # (Auto) 0.06 (0.00-0.20) K/uL Immature Gran # (Auto) 0.03 (0.01-0.20) K/uL PT 33.9 H (9.0-12.0) Seconds INR 3.5 H (0.9-1.1) APTT 34 H (21-31) Seconds PTT Ratio 1.3 VBG pH 7.33 L (7.36-7.41) VBG pCO2 51 H (38-50) mmHg VBG pO2 24 mmHg VBG HCO3 27 mmol/L VBG O2 Saturation < 60.0 % VBG Base Excess 0.2 mEq/L Sodium 141 (136-145) mmol/L Potassium 4.9 (3.5-5.1) mmol/L Chloride 108 H (98-107) mmol/L Carbon Dioxide 25 (21-32) mmol/L Anion Gap 8 (3-11) BUN 35 H (6-23) mg/dl Creatinine 1.47 H (0.6-1.4) mg/dl Est Cr Clr Drug Dosing 29.8 ml/min Est GFR ( Amer) 48.7 ml/min Est GFR (Non-Af Amer) 42.0 ml/min BUN/Creatinine Ratio 23.8 H (10-20) Glucose 88 (70-99(Fasting)) mg/dl Calcium 9.8 (8.6-10.3) mg/dl Magnesium 2.1 (1.7-2.4) mg/dl Total Bilirubin 1.0 (0.2-1.0) mg/dl AST 42 H (13-39) U/L ALT 25 (7-52) U/L Alkaline Phosphatase 75 (34-104) U/L Troponin I High Sens 40.0 H (0-20) pg/ml B-Natriuretic Peptide 411 H (0-100) pg/ml Total Protein 8.8 H (6.0-8.3) gm/dl Albumin 4.0 (3.4-5.0) gm/dl Globulin 4.8 H (2.5-4.0) gm/dl Albumin/Globulin Ratio 0.8 L (0.9-2) TSH 1.568 (0.300-4.500) uIu/ml Urine Color Yellow Urine Appearance Clear (Clear) Urine pH 5.0 (4.5-7.5) Ur Specific [place] 1.012 (1.000-1.030) Urine Protein Trace H (Negative) Urine Glucose (UA) Negative (Negative) Urine Ketones Negative (Negative) Urine Blood 1+ H (Negative) Urine Nitrite Negative (Negative) Urine Bilirubin Negative (Negative) Urine Urobilinogen Negative (Negative) Ur Leukocyte Esterase Negative (Negative) Urine WBC (Auto) 0-5 (0-5) /hpf Urine RBC (Auto) 0-2 (0-2) /hpf U Hyaline Cast (Auto) 11-20 H (0-2) /lpf U Epithel Cells (Auto) 0-2 (0-2) /hpf Urine Bacteria (Auto) None Seen (None Seen) Digoxin 1.0 (0.8-2.0) ng/ml Adenovirus (PCR) Not Detected (NotDetected) B. pertussis DNA (PCR) Not Detected (NotDetected) B.parapertussis DNA PCR Not Detected (NotDetected) C. pneumoniae DNA (PCR) Not Detected (NotDetected) Coronavirus OC43 (PCR) Not Detected (NotDetected) Coronavirus HKU1 (PCR) Not Detected (NotDetected) Coronavirus 229E (PCR) Not Detected (NotDetected) SARS-CoV-2 (PCR) Not Detected (NotDetected) Coronavirus NL63 (PCR) Not Detected (NotDetected) Human Metapneumovir PCR Not Detected (NotDetected) Influenza Type A (PCR) Not Detected (NotDetected) Influenza Type B (PCR) Not Detected (NotDetected) M. pneumoniae (PCR) Not Detected (NotDetected) Parainfluenza 1 (PCR) Not Detected (NotDetected) Parainfluenza 2 (PCR) Not Detected (NotDetected) Parainfluenza 3 (PCR) Not Detected (NotDetected) Parainfluenza 4 (PCR) Not Detected (NotDetected) RSV (PCR) Not Detected (NotDetected) Entero/Rhino (PCR) Not Detected (NotDetected) Administered Medications Discontinued Medications Furosemide (Furosemide 40 Mg/4 Ml Vial) 40 mg IV ONE ONE Stop: 11/12/23 16:31 Last Admin: 11/12/23 16:58 Dose: 40 mg Documented By: ANG Imaging Data Radiologist's Impression: Chest X-Ray 11/12/23 12:57 XR chest 1V portable HISTORY: 88 years-old Male syncope, sob acute syncope with shortness of breath COMPARISON: 11/06/2023 TECHNIQUE: AP view the chest FINDINGS: Cardiac silhouette is enlarged. Median sternotomy with cardiac valvular prosthesis. Left subclavian pacer. No pneumothorax. Small pleural effusions. Mixed interstitial and alveolar opacities redemonstrated. Bones appear grossly intact. IMPRESSION: 1. Cardiomegaly with persistent pulmonary edema and small pleural effusions. 2. Chronic interstitial lung disease. ACT 112: Negative or not required by law. The above report was generated using voice recognition software. It may contain grammatical, syntax or spelling errors. Electronically signed by: Luke Kaur M.D. 11/12/2023 2:[address] 11/12/23 12:57 CT head/brain wo con CLINICAL HISTORY: 88 years-old Male with syncope, weak. Acute syncope with weakness TECHNIQUE: Multiple axial CT images of the head were obtained without contrast. A dose lowering technique was utilized adhering to the principles of ALARA. CT DOSE: 703.85 mGy.cm COMPARISON: 11/05/2023 FINDINGS: No acute intracranial hemorrhage, midline shift, intracranial mass, hydrocephalus, territorial ischemia or abnormal extra-axial collection. Involutional changes with chronic microvascular ischemic disease. Chronic left parieto-occipital infarct with encephalomalacia redemonstrated. The calvarium is intact. Prior bilateral lens repair. The paranasal sinuses, mastoid air cells, and middle ear cavities are clear. IMPRESSION: No acute intracranial abnormality. ACT 112: Negative or not required by law. The above report was generated using voice recognition software. It may contain grammatical, syntax or spelling errors. Electronically signed by: Luke Kaur M.D. 11/12/2023 2:10 PM Discharge Plan Visit Data Chief Complaint: Syncope Stated Complaint: SOB, WEAKNESS ED Provider: Edgar Slade Discharge Problem: Syncope and collapse, Chronic atrial fibrillation, Supratherapeutic INR, Weakness Patient Disposition: Being Evaluated by Hospitalist Forms Stand Alone Forms: My [facility] Prescriptions Prescriptions: No Action loratadine 10 mg tablet 10 mg PO DAILY pantoprazole 40 mg Tablet,Delayed Release (Dr/Ec) 40 mg PO QAM atorvastatin 40 mg tablet 40 mg PO DAILY gabapentin 300 mg capsule 300 mg PO TID Rx Instructions: Morning, Mid day, and bed time. aspirin 81 mg Tablet,Delayed Release (Dr/Ec) 81 mg PO DAILY multivitamin [Daily-Selena] Tablet 1 tab PO DAILY PreserVision AREDS-2 250-90-40-1 mg Capsule 1 tab PO DAILY donepezil 10 mg tablet 10 mg PO HS alendronate 70 mg tablet 70 mg PO WK Rx Instructions: SUNDAYS digoxin 125 mcg (0.125 mg) tablet 125 mcg PO 5XWK Rx Instructions: On Friday, Friday, Friday, and Friday finasteride 5 mg tablet 5 mg PO DAILY metoprolol succinate 100 mg tablet extended release 24 hr 50 mg PO BID Rx Instructions: HOLD FOR SBP <90 diclofenac sodium 1 % Gel 2 g TOPICAL TID Rx Instructions: apply to affected area 0600,1400,2000 acetaminophen 500 mg Tablet 1,000 mg PO BID Rx Instructions: at 6AM and 2PM for pain. *Max 3gms APAP in 24 hours* sertraline 25 mg tablet 25 mg PO DAILY nitroglycerin 0.4 mg Tablet, Sublingual 0.4 mg sublingual .Q 5 MIN PRN (Reason: Chest Pain) Rx Instructions: take 1 tablet under tongue every 5 min's as needed for chest pain x 3 doses, if no relief call 911 calcium carbonate [Calcium 600] 600 mg calcium (1,500 mg) Tablet 600 mg PO QDL memantine [Namenda] 10 mg Tablet 10 mg PO BID Qty: 30 1RF warfarin 3 mg tablet 3 mg PO DAILY diphenhydramine-acetaminophen [Tylenol PM Extra Strength] 25-500 mg Tablet 2 tab PO HS cholecalciferol (vitamin D3) 125 mcg (5,000 unit) Capsule 125 mcg PO DAILY coenzyme Q10 [Co Q-10] 200 mg Capsule 200 mg PO DAILY Gluco/Chond/Msm/Turm tablet 3 tab PO BID Menthol 4% Topical Analgesic See Rx Instructions .ROUTE .COMPLEX PRN (Reason: Pain) Rx Instructions: Use as directed as needed for muscle pain furosemide 40 mg tablet 40 mg PO 3XWK Rx Instructions: On Friday, Friday and Friday doxycycline hyclate 100 mg Capsule 100 mg PO BID Qty: 3 0RF tramadol 50 mg tablet 50 mg PO Q4 PRN (Reason: Pain) Qty: 0 0RF isosorbide mononitrate 60 mg Tablet Extended Release 24 Hr 30 mg PO HS Qty: 30 0RF Entresto 24-26 mg tablet 0.5 tab PO BID Qty: 30 0RF Rx Instructions: hold for BP<90 [facility]errals [facility] -
--- NOTE | 2023-11-12 15:34 | History & Physical Report ---
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 Admitted 11/04-11/09 2/ PNA treated with antibiotics, course complicated by syncopal episode which was felt to be related to hypotension (Entresto and imdur reduced) and a/c CHF receiving IV diuresis. D/C back to [facility] progressively getting weaker, lack of intake. 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 His Oxygen was 70s on room air and on 6L was high 80s. He did lose function of bowel/bladder, Blood pressure normal this morning but it was not checked during event, no seizure like activity. Syncope/Collapse admit to tele CT head w/o abnormality pacer was interrogated in ED, no arrhythmia but concern for volume overload obtain echocardiogram, Carotid doppler (pt with hx of carotid bypass per family) and orthostatics give IV lasix 40mg x 1 dose ? 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 S/p CABG. Pacemaker in place Continue aspirin, atorvastatin, dig Hold imdur, entresto Reduce metoprolol to 25mg bid dig level WNL I and O, daily weight update echo, last done on 02/24 reviewed in [employer] IV lasix 40mg x 1 dose consult cardiology CKD-3 baseline cr 1.3-1.5 bun/cr 35 and 1.47 cr has been fluctuating and was 1.13 at discharge Generalized weakness PT/OT Recent PNA treated with course of Unasyn and doxy hx of recurrent aspiration and per previous admission family agreeable to permissive aspiration, will continue aspiration precautions Supratherapeutic INR hold warfarin, check INR in a.m. Dementia continue namenda and donepezil delirium precautions COPD/Pulmonary Fibrosis chronic, stable, no exac DVT ppx: Hold warfarin, INR elevated DNR/DNI PCP: Dr. Conrad, [facility] Dispo: admit to tele for syncopal w/u CM to be on board to determine possible need, family wishes to keep pt at [facility] as he is familiar with surroundings but is open to hospice to provide more support Pt was seen and examined in collaboration with Dr. Ricci, please see addendum A total of 76 minutes was spent coordinating, documenting, and providing care for this patient excluding time spent in the performance of separately billed services. This included personally viewing all current laboratories and imaging studies, medication reconciliation, outpatient chart review, and discussion with specialists. History of Present Illness Chief Complaint: Syncope prior to arrival. 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 Outpt records reviewed and hx obtained from ED provider. of significance patient recently hospitalized on 11/04 and discharged on 11/09 secondary to pneumonia. His hospital course was complicated with additional syncopal episode in which patient's blood pressure was very low. He was seen and evaluated by cardiology and his Entresto and Imdur reduced by half. It was also felt that he was having acute on chronic CHF and therefore he received IV diuresis. He was discharged back to personal care [facility]. Per ED provider family notes that patient has had increased oral intake and increased lethargy. 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 His Oxygen was 70s on room air and on 6L was high 80s. He did lose function of bowel/bladder, Blood pressure normal this morning but it was not checked during event, no seizure like activity. Pacemaker interrogation was performed in ED which revealed volume overload, but no arrhythmia or abnormality. Pt is a poor historian. He currently denies any complaints. He denies f/c/s, chest pain, sob, n/v/d, abd pain. 2 Daughters are at bedside. Daughter Xochitl reports she was called from cardiology office this a.m. alerting that his pacemaker was reading as possible CHF. Daughters report he has been much more lethargic and, "out of it," more than normal. They do expect it to take a few days for him to re orient back to [facility] but this was not his normal self. He has not been eating well and more weak. Staff talked to family yesterday about option of hospice to give him more support to stay at [facility]. Allergies Allergy/AdvReac Type Severity Reaction Status Date / Time oxycodone Allergy Severe HALLUCINATI Verified 03/07/23 16:15 ONS TASHA Inhibitors AdvReac Intermediate Cough Verified 03/07/23 16:15 rosuvastatin AdvReac Intermediate CONSTIPATIO Verified 03/07/23 16:15 N niacin AdvReac Mild FLUSHING Verified 03/07/23 16:15 paroxetine AdvReac Mild drowsiness Verified 03/07/23 16:15 Home Medications Medication Instructions Recorded Confirmed Type pantoprazole 40 mg tablet,delayed 40 mg PO QAM 02/10/18 11/12/23 History release loratadine 10 mg tablet 10 mg PO DAILY 12/04/18 11/12/23 History atorvastatin 40 mg tablet 40 mg PO DAILY 10/09/20 11/12/23 History gabapentin 300 mg capsule 300 mg PO TID 10/09/20 11/12/23 History aspirin 81 mg tablet,delayed 81 mg PO DAILY 11/10/20 11/12/23 History release memantine 10 mg tablet (Namenda) 10 mg PO BID #30 tabs 02/12/22 11/12/23 Rx acetaminophen 500 mg tablet 1,000 mg PO BID 03/01/23 11/12/23 History alendronate 70 mg tablet 70 mg PO WK 03/01/23 11/12/23 History calcium carbonate (Calcium 600) 600 mg PO QDL 03/01/23 11/12/23 History diclofenac sodium 1 % topical gel 2 g topical TID pain 03/01/23 11/12/23 History digoxin 125 mcg (0.125 mg) tablet 125 mcg PO 5XWK 03/01/23 11/12/23 History donepezil 10 mg tablet 10 mg PO HS 03/01/23 11/12/23 History finasteride 5 mg tablet 5 mg PO DAILY 03/01/23 11/12/23 History metoprolol succinate 100 mg 50 mg PO BID 03/01/23 11/12/23 History tablet,extended release 24 hr multivitamin (Daily-Selena tablet) 1 tab PO DAILY 03/01/23 11/12/23 History nitroglycerin 0.4 mg sublingual 0.4 mg sublingual .Q 5 MIN PRN 03/01/23 11/12/23 History tablet Chest Pain sertraline 25 mg tablet 25 mg PO DAILY 03/01/23 11/12/23 History vit C 250 mg-vit E 90 mg-zinc 40 1 tab PO DAILY 03/01/23 11/12/23 History mg-copper 1 [id number] capsule (PreserVision AREDS-2) Gluco/Chond/Msm/Turm 3 tab PO BID 11/05/23 11/12/23 History Menthol 4% Topical Analgesic See Rx Instructions .Route 11/05/23 11/12/23 History .COMPLEX PRN Pain cholecalciferol (vitamin D3) 125 125 mcg PO DAILY 11/05/23 11/12/23 History mcg (5,000 unit) capsule coenzyme Q10 200 mg capsule (Co 200 mg PO DAILY 11/05/23 11/12/23 History Q-10) diphenhydramine 25 2 tab PO HS 11/05/23 11/12/23 History mg-acetaminophen 500 mg tablet (Tylenol PM Extra Strength) furosemide 40 mg tablet 40 mg PO 3XWK 11/05/23 11/12/23 History warfarin 3 mg tablet 3 mg PO DAILY 11/05/23 11/12/23 History doxycycline hyclate 100 mg capsule 100 mg PO BID #3 caps 11/10/23 11/12/23 Rx isosorbide mononitrate 60 mg 30 mg (1/2 x 60 mg) PO HS #30 tabs 11/10/23 11/12/23 Rx tablet,extended release 24 hr sacubitril 24 mg-valsartan 26 mg 0.5 tab PO BID #30 tabs 11/10/23 11/12/23 Rx tablet (Entresto) tramadol 50 mg tablet 50 mg PO Q4 PRN Pain #0 tabs 11/10/23 11/12/23 Rx Past Med/Surg History Problem List (Updated 11/12/23 @ 17:05 by Edgar Slade M.D.) Weakness (Acute) Syncope and collapse (Acute) Supratherapeutic INR (Acute) Acute on chronic diastolic CHF (congestive heart failure) Status post transcatheter aortic valve replacement (TAVR) using bioprosthesis Chronic atrial fibrillation (Acute) Syncope and collapse Neck pain BPH (benign prostatic hyperplasia) Pulmonary fibrosis COPD (chronic obstructive pulmonary disease) Dementia Hyperlipidemia CKD (chronic kidney disease), stage III Atrial fibrillation Abdominal pain Elevated BUN (Acute) Bilateral pneumonia (Acute) Acute respiratory failure with hypoxia Hypoxia (Acute) Hypotension Elevated troponin COVID (Acute) Adult failure to thrive (Acute) Generalized weakness (Acute) Recurrent falls (Acute) Diffuse abdominal pain (Acute) Weakness Nocturnal hypoxemia Sensorineural hearing loss (SNHL) of both ears Pacemaker Medtronic, generator change 10/05/19 at [facility]. Medtr[employer]. Last interrogation 02/02/20. Ischemic cardiomyopathy S/P BiV pacer (NOT defibfillator) 2012, with generator change 10/2019 at [facility]. 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 No significant prosthesis stenosis or regurg on 12/2019 echo. Severe mitral regurgitation with eccentric jet posteriorly directed. CAD (coronary artery disease) Remote [place] 1983 with CABG x 2 (BELLAMY-LAD, SVG-RCA). 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 Follows with [facility] cardiology. Chronic kidney disease (CKD), stage II (mild) Hypertension Chronic systolic heart failure Secondary hyperparathyroidism Raynaud's disease Moderate obstructive sleep apnea Polycythemia Aortic stenosis Elevated prostate specific antigen (PSA) Vasomotor rhinitis (Acute) Spinal stenosis (Acute) Restless leg syndrome (Acute) Osteopenia (Acute) Nasal polyp (Acute) Insomnia (Acute) Hearing loss (Acute) Gout (Acute) Chronic reflux esophagitis (Acute) Anticoagulant long-term use Symptomatic bradycardia Hernia, inguinal, left Status post placement of cardiac pacemaker (~2013) 2013, [employer] - FOLLOWS WITH [facility] LAST CHECK 05/2018 AND NEXT CHECK WILL BE 10/2018 Mitral valve disorder Medical History LOIS (obstructive sleep apnea) YEMI (acute kidney injury) Ventricular tachycardia Epistaxis Hypoxia Congestive heart failure, NYHA class III Hospitalization 10/2017, 02/2018 for acute on chronic CHF Sleep apnea WITH CPAP Arthritis History of TIA (transient ischemic attack) OVER 5 YEARS AGO AND NO RESIDUAL EFFECTS Hx of myocardial infarction 1983 AND HAD CABG X2 Surgical History S/P left inguinal hernia repair (04/04/20) Open Sliding indirect Left Inguinal Hernia Repair, Direct weakness,with Mesh Placement, Excision Lipoma of Cord Dr. Morataya 04/04/2020 History of repair of inguinal hernia (11/06/18) Incarcerated right inguinal hernia repair and femoral hernia repair 11/06/18 Dr. Cho H/O carotid endarterectomy (~1997) 1997 on right Hx of aortic valve replacement (~05/2018) [facility] 05/2018 Status post right knee replacement S/P hernia repair RIGHT INGUINAL HERNIA REPAIR Colonoscopy (08/25/12) History of coronary artery bypass graft x 2 (~1983) 1983 - FOLLOWS WITH [facility] Stented coronary artery (~2014) 2014 ONE STENT WAS PLACED AND FOLLOWS WITH [facility] Family History Other Heart disease Social History Smoking Status: Unknown if ever smoked Tobacco Type: Cigarettes Second Hand Exposure: No; Do You Dip or Chew Tobacco: No; Hx Alcohol Use: Yes Alcohol type: hard liquor Hx Substance Use: No Preferred Language: Telugu Communication Ability: Impaired Engineering Team Supervisor Required: No Beliefs That Will Affect Care: None Current Living Situation: Personal Care Facility Current Living Situation Comment: [facility] current occupational status: retired Feels Safe at Home: Yes Assistive Devices: Walker Review of Systems Review of Systems: All systems reviewed & are unremarkable except as noted in HPI & below Physical Exam Physical Exam: Constitutional: Elderly, M, cachectic and weak, vitals as above, NAD, sitting up in bed, pleasant, conversing easily Head: Normocephalic, Atraumatic Eyes: PERRL, conjunctivae normal, anicteric sclerae ENMT: external ear and nose normal, oropharynx normal dry membranes Neck: trachea midline, no thyromegaly normal visual inspection Respiratory: normal respiratory effort, lungs clear to auscultation, no wheeze, rales, rhonchi. Normal insp/exp effort, no accessory muscle use Cardiovascular: RRR, 2/6 JUANJO LLSB , ACW pacer noted, no edema Vessels: no JVD or carotid bruit Chest: normal inspection of chest Abdomen: normal bowel sounds, soft, nontender, no hepatosplenomegaly Musculoskeletal: no cyanosis or clubbing, extremities motor strength 5/5 Skin: no rashes, warm and dry normal turgor Neurologic: no face palsy, no dysarthria CN's II-XI intact bilaterally and moves all extremities Psychiatric: A+Ox2 to person and place, euthymic affect : condom cath in place draining yellow urine Results & Data Results & Data Vital Signs (Past 12 Hours) Vital Signs Temp Pulse Resp BP Pulse Ox O2 Del Method O2 Flow Rate 11/12/23 15:09 70 20 137/63 97 Nasal Cannula 4 11/12/23 14:30 70 18 137/66 100 Nasal Cannula 4 11/12/23 14:06 70 18 146/73 H 100 Nasal Cannula 4 11/12/23 13:30 70 20 141/67 H 11/12/23 12:33 70 25 H 144/60 H 11/12/23 12:32 36.7 C 70 22 144/60 H 11/12/23 12:28 71 Laboratory Results I have independently reviewed and interpreted patient's admitting labs including CBC, CMP, PTT, PT/INR, mag, dig, biofire, UA, TSH, BNP and troponin. Diagnostic Findings Chest X-Ray 11/12/23 12:57 XR chest 1V portable HISTORY: 88 years-old Male syncope, sob acute syncope with shortness of breath COMPARISON: 11/06/2023 TECHNIQUE: AP view the chest FINDINGS: Cardiac silhouette is enlarged. Median sternotomy with cardiac valvular prosthesis. Left subclavian pacer. No pneumothorax. Small pleural effusions. Mixed interstitial and alveolar opacities redemonstrated. Bones appear grossly intact. IMPRESSION: 1. Cardiomegaly with persistent pulmonary edema and small pleural effusions. 2. Chronic interstitial lung disease. ACT 112: Negative or not required by law. The above report was generated using voice recognition software. It may contain grammatical, syntax or spelling errors. Electronically signed by: Luke Kaur M.D. 11/12/2023 2:[address] 11/12/23 12:57 CT head/brain wo con CLINICAL HISTORY: 88 years-old Male with syncope, weak. Acute syncope with weakness TECHNIQUE: Multiple axial CT images of the head were obtained without contrast. A dose lowering technique was utilized adhering to the principles of ALARA. CT DOSE: 703.85 mGy.cm COMPARISON: 11/05/2023 FINDINGS: No acute intracranial hemorrhage, midline shift, intracranial mass, hydrocephalus, territorial ischemia or abnormal extra-axial collection. Involutional changes with chronic microvascular ischemic disease. Chronic left parieto-occipital infarct with encephalomalacia redemonstrated. The calvarium is intact. Prior bilateral lens repair. The paranasal sinuses, mastoid air cells, and middle ear cavities are clear. IMPRESSION: No acute intracranial abnormality. ACT 112: Negative or not required by law. The above report was generated using voice recognition software. It may contain grammatical, syntax or spelling errors. Electronically signed by: Luke Kaur M.D. 11/12/2023 2:10 PM ECG Additional Comments: I have independently reviewed and interpreted patient's admitting EKG which revealed: 71 V paced rhythm COVID-19 Results Results COVID-19 Adm Lab Results: RBC 4.29 M/uL (4.70-6.10) L 11/12/23 WBC 9.10 K/ul (4.8-10.8) 11/12/23 Hgb 14.0 g/dl (14.0-18.0) 11/12/23 Hct 43.5 % (42.0-52.0) 11/12/23 Plt Count 196 K/uL (130-400) 11/12/23 Neutrophils (%) (Auto) 77.4 % 11/12/23 Lymphocytes (%) (Auto) 8.4 % 11/12/23 Monocytes # (Auto) 0.50 K/uL (0.11-0.59) 11/12/23 Eosinophils # (Auto) 0.70 K/uL (0.00-0.50) H 11/12/23 Immature Granulocyte % (Auto) 0.3 % 11/12/23 Neutrophils # (Auto) 7.05 K/uL (1.40-6.50) H 11/12/23 Monocytes # (Auto) 0.50 K/uL (0.11-0.59) 11/12/23 Eosinophils # (Auto) 0.70 K/uL (0.00-0.50) H 11/12/23 Basophils # (Auto) 0.06 K/uL (0.00-0.20) 11/12/23 Immature Granulocyte # (Auto) 0.03 K/uL (0.01-0.20) 4 Na 141 mmol/L (136-145) 11/12/23 K 4.9 mmol/L (3.5-5.1) 11/12/23 Cl 108 mmol/L (98-107) H 11/12/23 CO2 25 mmol/L (21-32) 11/12/23 Anion Gap 8 (3-11) 11/12/23 BUN 35 mg/dl (6-23) H 11/12/23 Creatinine 1.47 mg/dl (0.6-1.4) H 11/12/23 BUN/Creatinine Ratio 23.8 (10-20) H 11/12/23 Glucose Level 88 mg/dl (70-99(Fasting)) 11/12/23 Ca 9.8 mg/dl (8.6-10.3) 11/12/23 Total Bilirubin 1.0 mg/dl (0.2-1.0) 11/12/23 AST/SGOT 42 U/L (13-39) H 11/12/23 ALT/SGPT 25 U/L (7-52) 11/12/23 Alkaline Phosphatase 75 U/L (34-104) 11/12/23 Total Protein 8.8 gm/dl (6.0-8.3) H 11/12/23 Albumin 4.0 gm/dl (3.4-5.0) 11/12/23 Globulin 4.8 gm/dl (2.5-4.0) H 11/12/23 Albumin/Globulin Ratio 0.8 (0.9-2) L 11/12/23 Procalcitonin 0.03 ng/ml (0-0.5) 11/12/23 PTT 34 Seconds (21-31) H 11/12/23 INR 3.5 (0.9-1.1) H 11/12/23 Adenovirus (PCR) Not Detected (NotDetected) 11/12/23 B. parapertussis DNA (PCR) Not Detected (NotDetected) 11/02 B. pertussis DNA (PCR) Not Detected (NotDetected) 11/12/23 C. pneumoniae DNA (PCR) Not Detected (NotDetected) 4 Coronavirus Type OC43 (PCR) Not Detected (NotDetected) 02/25 Coronavirus Type HKU1 (PCR) Not Detected (NotDetected) 02/25 Coronavirus Type 229E (PCR) Not Detected (NotDetected) 02/25 COVID-19 PCR Not Detected (NotDetected) 11/12/23 Coronavirus Type NL63 (PCR) Not Detected (NotDetected) 02/25 Human Metapneumovirus (PCR) Not Detected (NotDetected) 02/25 Influenza Virus Type A (PCR) Not Detected (NotDetected) Influenza Virus Type B (PCR) Not Detected (NotDetected) M. pneumoniae (PCR) Not Detected (NotDetected) 11/12/23 Parainfluenza Type 1 (PCR) Not Detected (NotDetected) 11/02 Parainfluenza Type 2 (PCR) Not Detected (NotDetected) 11/02 Parainfluenza Type 3 (PCR) Not Detected (NotDetected) 11/02 Parainfluenza Type 4 (PCR) Not Detected (NotDetected) 11/02 RSV (PCR) Not Detected (NotDetected) 11/12/23 Enterovirus/Rhinovirus (PCR) Not Detected (NotDetected) Chest X-Ray 11/12/23 Code Status & VTE Plan Code Status DNR/DNI VTE Prophylaxis Plan VTE Prophylaxis will be ordered: No Reason for no VTE drug order: Treatment not indicated Supervising Physician Co-Signing Physician Notes Attending Addendum: Case reviewed with the advanced practitioner. I have personally performed a history and physical examination on the patient. I have reviewed the advanced practitioner's documentation on the date of service referenced in note, and I agree with, and take responsibility for the plan of care. please refer to her notes for full details patient seen and examined, records reviewed by myself as well on exam, patient Seen resting in bed, comfortable, not in distress, on 4 L of O2 by nasal cannula States he feels okay overall Denies active shortness of breath, chest pain, nausea, dizziness no other symptoms VS noted and reviewed oriented x 3 , not in distress, speaks in sentences with no effort nor accessory muscle use normal rate, regular rhythm, no murmurs mild rales BL bases non distended, soft, nontender no bipedal edema, erythema, warmth no neuro deficits all labs, imaging noted and reviewed ASSESSMENT AND PLAN Syncopal episode, likely secondary to: Orthostatic hypotension Acute on chronic CHF exacerbation Hold Entresto, isosorbide mononitrate Reduce metoprolol to 25 mg p.o. twice daily Monitor blood pressure Lasix 40 mg IV given Update echo Cardiology service consulted other diagnoses and plan of care as per advanced practitioner's notes Woody Ricci MD
[2023-11-12 15:35] LABS: Appearance Urine Clear (Clear); Bacteria Urine Automated None Seen (None Seen); Bilirubin Urine Negative (Negative); Blood Urine 1+ (Negative); Color Urine Yellow; Epithelial Cell Urine Auto 0-2 /hpf (0-2); Glucose Urine UA Negative (Negative); Ketones Urine Negative (Negative); Leukocyte Esterase Urine Negative (Negative); Nitrite Urine Negative (Negative); Protein Urine Trace (Negative); RBC Urine Automated 0-2 /hpf (0-2); Specific Gravity Urine 1.012 (1.000-1.030); Urobilinogen Urine Negative (Negative); WBC Urine Automated 0-5 /hpf (0-5)
[2023-11-12 16:10] LABS: Adenovirus PCR Not Detected (NotDetected); Bordetella parapertussis PCR Not Detected (NotDetected); Bordetella pertussis PCR Not Detected (NotDetected); Chlamydia pneumoniae PCR Not Detected (NotDetected); Coronavirus 229E PCR Not Detected (NotDetected); Coronavirus CoV-2 (COVID19)PCR Not Detected (NotDetected); Coronavirus HKU1 PCR Not Detected (NotDetected); Coronavirus NL63 PCR Not Detected (NotDetected); Coronavirus OC43PCR Not Detected (NotDetected); Human Metapneumovirus PCR Not Detected (NotDetected); Influenza A PCR Not Detected (NotDetected); Influenza B PCR Not Detected (NotDetected); Mycoplasma pneumoniae PCR Not Detected (NotDetected); Parainfluenza Virus 1 PCR Not Detected (NotDetected); Parainfluenza Virus 2 PCR Not Detected (NotDetected); Parainfluenza Virus 3 PCR Not Detected (NotDetected); Parainfluenza Virus 4 PCR Not Detected (NotDetected); Respiratory Syncytial VirusPCR Not Detected (NotDetected); Rhinovirus/Enterovirus PCR Not Detected (NotDetected)
[2023-11-12] MEDS: FUROSEMIDE 40 MG/4 ML VIAL IV ONE (16:58)
--- NOTE | 2023-11-12 17:11 | Ultrasound Report ---
US carotid doppler BI CLINICAL HISTORY: 88 years-old Male with syncope. COMPARISON: None TECHNIQUE: Multiple real time sonographic images of the carotid bifurcations were obtained assessing roger scale, color Doppler and spectral wave form appearance FINDINGS: RIGHT CAROTID: The peak systolic velocity measured in the right ICA is 84 cm/sec. The end diastolic velocity measured 13 cm/sec. The ICA to CCA ratio measured 0.99 which correlates with a stenosis of 0-50%. Moderate atherosclerosis. LEFT CAROTID: The peak systolic velocity measured in the left ICA is 83 cm/sec. The end diastolic v elocity measured 14 cm/sec. The ICA to CCA ratio measured 0.69 which correlates with a stenosis of 0- 50%. Moderate atherosclerosis. There is normal antegrade vertebral flow bilaterally. IMPRESSION: 1. Atherosclerosis without hemodynamically significant stenosis. 2. Normal antegrade vertebral flow bilaterally. ACT 112: Negative or not required by law. The above report was generated using voice recognition software. It may contain grammatical, syntax o r spelling errors. Electronically signed by: Luke Kaur M.D. 11/12/2023 5:10 PM
[2023-11-12] MEDS: ACETAMINOPHEN 500 MG TAB PO STA (17:55)
[2023-11-12] MEDS ORDERED: ONDANSETRON INJ 2 MG/ML 2 ML VIAL IV PRN (18:25)
[2023-11-12] MEDS ORDERED: traMADol HCL 50 MG TABLET PO PRN (18:25)
[2023-11-12] MEDS ORDERED: ACETAMINOPHEN 325 MG TAB PO PRN (18:25)
[2023-11-12] MEDS ORDERED: POLYETHYLENE (MIRALAX) 17 GM PACK PO PRN (18:25)
[2023-11-12] MEDS: DIGOXIN 0.125 MG TAB PO SCH (19:59)
[2023-11-12] MEDS: DONEPEZIL HCL 10 MG TAB PO SCH (22:50)
[2023-11-12] MEDS: METOPROLOL SUCC 25MG EXT REL TAB PO SCH (22:50)
[2023-11-12] MEDS: GABAPENTIN 300 MG CAP PO SCH (22:51)
[2023-11-12] MEDS: MEMANTINE HCL 10 MG TAB PO SCH (22:54)
--- OUTSIDE RECORDS SUMMARY | 2023-11-13 06:12 | External Medical Summary | Summary of Care ---
Author Name Unknown Organization [facility] Address [address] [place] [address] Phone [phone] Care Team Providers Care Machine Plate Stacker Name Role Phone LazaroIsrael hanley Primary Care Provider Reason for Visit * Reason Onset Date Comments Pacemaker Clinic 11/12/2023 Encounter Details Date Type Department Care Team (Late st Contact Info) Description 11/12/2023 Telephone Cardiology, [facility] [address] [facility] [place] [address] [place], Pacer Clinic [facility] [address] [place] [address] Pacemaker Clinic Allergies Active Allergy Reactions Criticality Noted Date Comments Jose Inhibitors Cough 02/21/2022 lisinopril lisinopril Rosuvastatin Calcium 08/02/2009 Had constipation, reffused to take Niacin Er 08/02/2009 flush Paroxetine Low 10/23/2021 Other reaction(s): drowsiness Oxycodone-Acetaminophen Nausea/vomiting 008 Nausea, no appetite, "goofey" documented as of this encounter (statuses as of 11/12/2023) Medications Medication Sig Dispensed Refills Start Date End Date Status MULTIVITAMIN TABS OR daily 0 01/12/2002 Active FLONASE 50 MCG/ACT NA SUSP Administer 1 [place] into nostril in the morning and 1 [place] before bedtime. 0 08/04/2002 Active ASPIRIN 81 MG PO TABS Take 1 Tablet by mouth in the morning. 60 0 03/03/2006 Active LORATADINE 10 MG PO CAPS Take 1 Capsule by mouth in the morning. 34 Cap 11 03/04/2011 Active FINASTERIDE 5 MG PO TABS 1 tablet at daily 04/22/2014 Active Coenzyme Q10 200 MG Oral Capsule Take 1 Capsule by mouth in the morning. 08/24/2014 Active Gabapentin 300 MG Oral Capsule (Neurontin)Indicat ions:as needed Take 1 Capsule by mouth in the morning and 1 Capsule at noon and 1 Capsule before bedtime. Active Respiratory Therapy Supplies Device Use as directed . Active Donepezil HCl 10 MG Oral Tablet (Aricept) Take 1 Tablet by mouth every night at bedtime. Take with largest meal of the day. Active Calcium-Vitamin D 600-200 MG-UNIT Oral Tablet Take 1 Tablet by mouth in the morning. Active Nitroglycerin 0.4 MG Sublingual Tablet Sublingual (Nitrostat)Indicat ions:Chronic coronary artery disease 1 Tab Sublingual Every 5 minutes as needed for chest pain 25 Tab 5 02/21/2021 Active Isosorbide Mononitrate ER 60 MG Oral Tablet Extended Release 24 Hour (Imdur) TAKE 1 TABLET DAILY 90 Tablet 3 06/18/2021 Active Alendronate Sodium 70 MG Oral Tablet (Fosamax) Take 1 Tablet by mouth once a week. 06/17/2021 Active PreserVision AREDS Oral Tablet Take 1 Tablet by mouth in the morning. Active Pantoprazole Sodium 40 MG Oral Tablet Delayed Release (Protonix) TAKE 1 TABLET DAILY 90 Tablet 3 07/09/2021 Active Atorvastatin Calcium 40 MG Oral Tablet (Lipitor) TAKE 1 TABLET DAILY 90 Tablet 3 09/03/2021 Active Warfarin Sodium 5 MG Oral Tablet (Coumadin)Indicati ons:Chronic atrial fibrillation (HCC) TAKE 1 TABLET DAILY OR DIRECTED BY THE ANTICOAGULATION CLINIC 90 Tablet 3 09/10/2021 Active Memantine HCl 10 MG Oral Tablet (Namenda) Take 1 Tablet by mouth 2 times a day with morning and evening meals. Active Acetaminophen 500 MG Oral Capsule Take 1 Capsule by mouth in the morning and 1 Capsule at noon and 1 Capsule before bedtime. Active traMADol HCl 50 MG Oral Tablet (Ultram) Take 0.5-2.5 Tablets by mouth every 4 hours as needed. 05/09/2022 Active D3-1000 25 MCG (1000 UT) Oral Capsule (Cholecalciferol) Take 2 Capsules by mouth in the morning. Active Metoprolol Succinate ER 50 MG Oral Tablet Extended Release 24 Hour (toPROL XL) Take 1 Tablet by mouth in the morning and 1 Tablet before bedtime. 180 Tablet 3 07/11/2022 Active Entresto 24-26 MG Oral Tablet (sacubitril-valsar marrero 24-26 mg per tab) Take 1 Tablet by mouth in the morning and 1 Tablet before bedtime. 180 Tablet 3 07/12/2022 Active Sertraline HCl 25 MG Oral Tablet (Zoloft) Take 1 Tablet by mouth in the morning. 04/14/2023 Active Glucosamine Chondroitin MSM Oral Tablet Take 3 Tablets by mouth in the morning and 3 Tablets before bedtime. Active Diclofenac Sodium 1 % External Gel (Voltaren) Apply topically to affected area 3 times a day. Active Furosemide 40 MG Oral Tablet (Lasix)Indications :Longstanding persistent atrial fibrillation (HCC) Take 40 mg daily by mouth plus an additional 40 mg in the afternoon 3 days per week. 125 Tablet 3 05/15/2023 Active Digoxin 125 MCG Oral Tablet (Lanoxin)Indicatio ns:Ischemic cardiomyopathy,Aor tocoronary bypass status,Biventricul ar pacemaker check,Acute [place] (HCC),S/P primary angioplasty with coronary stent Take 1 Tablet by mouth daily except for Friday and Friday. 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 Nonrheumatic aortic valve stenosis 12/04/2017 SOB (shortness of breath) 06/12/2017 ILD (interstitial lung disease) 06/12/2017 Non-rheumatic mitral regurgitation 11/27/2016 Biventricular cardiac pacemaker in situ 02/01/20 15 Biventricular pacemaker check 12/07/2012 Ischemic cardiomyopathy 10/05/2012 NSTEMI (non-ST elevated myocardial infarction) 0 08/02/2009 S/P primary angioplasty with coronary stent 07/05 Overview: BMS to SVG graft to RCA Dyslipidemia, goal LDL below 70 08/02/2009 HTN, goal below 130/80 08/02/2009 Aortocoronary bypass status 08/02/2009 Sleep apnea 08/02/2009 Acute inferior myocardial infarction 08/02/2009 Carotid stenosis, non-symptomatic 10/20/2008 Overview: Modified per Carotid Stenosis protocol #10 Other nonspecific abnormal c ardiovascular system function study 08/17/2007 Osteoporosis 11/04/2006 ADVANCE DIRECTIVE INFORMATION 05/13/2006 Overview: No, Advance Directive brochure offered , patient declined. Blepharochalasis 11/19/2005 GENERAL OSTEOARTHROSIS 09/16/2002 SPINAL STENOSIS-LUMBAR 09/16/2002 MYOCARDIAL INFARCTION; OTHER 09/16/2002 Benign prostatic hyperplasia 09/16/2002 Overview: ICD-10 update of inactive term ICD-10 update of inactive term Chronic coronary artery disease 08/04/2002 HTN, goal below 140/90 08/04/2002 documented as of this encounter (statuses as of 11/12/2023) Resolved Problems Problem Noted Date Diagnosed Date Resolved Date COPD, mild 08/18/2019 03/16/2021 Acute anterior myocardial infarction 08/02/2009 08/02/2009 Atrial fibrillation 08/02/2009 02/20/20 22 Overview: Paroxsymal Dyslipidemia, goal LDL below 100 04/19/2009 08/02/2009 Overview: Per Lipid Taxonomy. Carotid Stenosis, non-symptomatic 03/03/2008 10/20/2008 Overview: Modified per Carotid Stenosis protocol #10 EXAMINATION OF PARTICIPANT I N CLINICAL TRIAL-Genomics 08/19/2007 08/18/2009 Overview: Renamed Per Clinical Trials Billing Project. Study Titile: Genomic Markers for Patients with Cardiovascular Disease Project #[id number] PI: Stacy Romero MD Please call [phone] with study related questions GENOMICS CARDIO RESEARCH OTHER*[id number] 08/19/2007 06/11/2016 Overview: Renamed Per Clinical Trials Billing Project. Study Titile: Genomic Markers for Patients with Cardiovascular Disease Project #[id number] PI: Stacy Romero MD Please call [phone] with study related questions TIA (transient ischemic attack) 09/16/2002 02/19/2022 Mixed dyslipidemia 08/04/2002 9 Overview: Per Lipid Taxonomy. documented as of this encounter (statuses as of 11/12/2023) Immunizations Name Administration Dates Next Due COVID-19 mRNA, LNP-s, No Pre serve, 2-Dose Series (Moderna) 04/02/2021,07/18/2020,06/20/2020 Pneumococcal Polysaccharide PPV23 (Pneumovax) 06/05/2004 Season Influenza, Quad, PF, Adjuvanted, 65+ Yrs, IM (FLUAD) 02/22/2020 Seasonal Influenza, PF, 6 M & above, IM , (FluLaval or Fluzone) 01/30/2023 Seasonal Influenza, Quadriva lent Hd (Fluzone Hd) 02/16/2021 Seasonal Influenza, Quadriva lent Hd, 65+ Yrs 02/01/2022 Seasonal Influenza, Split, I IV3, With Preserve, Inj 02/08/2008 TDAP, Age 7 and older, IM (Adacel) 06/05/2010 Varicella Zoster Vaccine (Adult) 06/05/2009 documented as of this encounter Social History Tobacco Use Types Packs/Day Years Used Date Smoking Tobacco: Former Cigarettes 2 40 0 [birth year]02/1933 - 09/02/1973 Smokeless Tobacco: Never Alcohol Use Standard Drinks/Week Comments Not Currently 0 (1 standard drink = 0.6 oz pur e alcohol) Not in 4 years Utilities Answer Date Recorded Do you have trouble paying y our heating, water, or electric bill? (Adult - for ages 18 years and over) Not on file 10/21/2023 Is your family able to pay t he heat, water, or electric bill? (Household - for ages 0-17 years) Not on file 10/21/2023 Does your family have access to good internet? (Household - for ages 0-17 years) Not on file 10/21/2023 Social Connections Answer Date Recorded How often do you feel lonely or isolated from those around you? (Adult - for ages 18 years and over) Not on file 10/21/2023 Sex and Gender Information Value Date Recorded Sex Assigned at Not on file Gender Identity Not on file Sexual Orientation Not on file Job Start Date Occupation Industry Not on file Not on file Not on file documented as of this encounter Functional Status Functional Status Response Date of Assess ment Are you deaf or do you have serious difficulty h earing? No 07/28/2018 Are you blind or do you have serious difficulty seeing, even when wearing glasses? No 07/28/2018 Do you have serious difficul ty walking or climbing stairs? (5 years old or older) Yes 07/28/2018 Do you have difficulty dress ing or bathing? (5 years old or older) No 07/28/2018 Because of a physical, menta l, or emotional condition, do you have difficulty doing errands alone such as visiting a doctor s office or shopping? (15 years old or older) No 07/29/19 19 Cognitive Status Response Date of Assessm ent Because of a physical, menta l, or emotional condition, do you have serious difficulty concentrating, remembering, or making decisions? (5 years old or older) No 07/28/2018 documented as of this encounter Miscellaneous Notes * Telephone Encounter - Ethel Johns LPN - 11/12/2023 10:11 AM EDT Spoke to patients daughter Xochitl. Patient recently hospitalized for UTI where they were giving him IV fluids routinely. She states patient is not doing well, he is refusing to eat, refusing some of his meds. He was in hospital at some point for aspiration pneumonia. She states he has had some episodes where his BP is low and he feels dizzy, She is unsure what medication he is refusing as patient is in facility, [facility]: [phone] * Telephone Encounter - Teena Bloom CRNP - 11/12/2023 9:51 AM EDT Chart reviewed in coverage of Dr. Ruiz . Patient with history of ICM. Please call patient and assess symptoms of CHF- SOB? Weight gain? Edema? May need to increase Lasix transiently pending patient response. In regards to the VT- please ask about home BP readings. Will likely increase metoprolol succinate. Thanks, LESLI Mae * Telephone Encounter - Ethel Johns LPN - 11/12/2023 9:28 AM EDT Thoracic Impedance Out of Range Thoracic impedance monitoring: Fluid index reveals a decreased thoracic impedance indicating fluid retention. Tachycardia: VT Stored EGMs are consistent with or suggestive of Ventricular Tachycardia Total episodes: 16 Longest episode 3 seconds Fastest rate 194bpm Ventricular Sensing Episodes VSE Marker channels are suggestive of VT Total episodes: 7 Tachycardia: VT Detected in Monitor Zone Sustained tachycardia event detected within programmed monitor zone Total episodes: 1 Tachycardia Rate: 120 bpm documented in this encounter Plan of Treatment Health Maintenance Due Date Last Done Comments Depression Screening 1947 Albumin/Creatinine Ratio 10/18/1953 O2 ASSESSMENT COMPLETED IN PAST YEAR FOR COPD 10/18/1953 VITAMIN D LEVEL ONCE IN A LIFETIME-USE SMARTSET# [id number] 1975 Zoster Vaccines (2 of 3) 08/22/2009 06/27/2009, 05/2009 DXA Scan 10/18/2016 10/18/2014, 09/02, 09/16/2011, Additional history exists DTaP,Tdap,and Td Vaccines (2 - Td or Tdap) 06/05/2020 06/05/2010 COVID-19 Vaccine (4 - 2022- season) 2023 04/02/2021, 07/18/2020, 06/20/2020 Influenza Vaccine (FLU shot) (#1) 2024 01/30/2023, 02/01/2022, 02/16/2021, Additional history exists DIG LEVEL FOR MEDICATION MONITORING YEARLY 05/12/2024 05/12/2023, 07/15/2022, 08/06/2021, Additional history exists Pneumococcal Vaccine: 65+ Years Completed 03/25/2014, 04/18/2005, 06/05/2004 Alpha-1 Antitrypsin Completed 04/09/2021 HPV (Gardasil) Vaccine Aged Out No lo nger eligible based on patient's age to complete this topic Hepatitis B Vaccine Aged Out No longe r eligible based on patient's age to complete this topic MENINGOCOCCAL (MENACTRA/MENVEO) Aged Out No longer eligible based on patient's age to complete this topic documented as of this encounter Medical Devices Not on filedocumented as of this encounter Advance Directives * Full Code (Latest Code Status on File) Date Activated Date Inactivated Comments 07/28/2018 2:05 PM 07/29/2018 5:22 PM This order r eflects the patients wishes and were consensually agreed upon. * Limited Code Date Activated Date Inactivated Comments 09/04/2016 9:56 PM 09/06/2016 12:33 AM This order re flects the patients wishes and were consensually agreed upon. Question Answer Comments Discussion of Advance Directives occurred with: Patient Does the patient have a Living Will? No Does the patient have Health Care Power of Attor mercedes? No Bag Valve Device? Yes Intubation? No Cardiac Compressions? Yes Defibrillation? Yes Synchronized Cardioversion? Yes External Pacemaker? Yes Cardiac Drugs? Yes * Full Code Date Activated Date Inactivated Comments 08/02/2009 6:02 PM 08/05/2009 6:28 PM This order re flects the patients wishes and were consensually agreed upon. Question Answer Comments Discussion of Advance Directives occurred with: Patient Does the patient have a Living Will? Yes, not cu rrently available Does the patient have Health Care Power of Plastic Boat Patcher? Yes, not currently available Care Teams Machine Plate Stacker Relationship Specialty Start Date End Date Israel Conrad DO [address] [place] [address] [place] [address] PCP - General Internal Medicine 09/05/22 documented as of this encounter
--- OUTSIDE RECORDS SUMMARY | 2023-11-13 06:12 | External Medical Summary | Summary of Care ---
Author Name Unknown Organization [facility] Address [address] [place] [address] Phone [phone] Care Team Providers Care Motor Vehicle License Clerk Name Role Phone LazaroIsrael hanley Primary Care Provider Reason for Visit * Reason Onset Date Comments Pacemaker Clinic 11/12/2023 Encounter Details Date Type Department Care Team (Late st Contact Info) Description 11/12/2023 Telephone Cardiology, [facility] [address] [facility] [place] [address] [place], Pacer Clinic [facility] [address] [facility] [place] [address] Pacemaker Clinic Allergies Active Allergy Reactions Criticality [...] FLONASE 50 MCG/ACT NA SUSP Administer 1 [place] into nostril in the morning and 1 [place] before bedtime. 0 08/04/2002 Active ASPIRIN 81 [...] cardiomyopathy,Aor tocoronary bypass status,Biventricul ar pacemaker check,Acute [place] (HCC),S/P primary angioplasty with coronary stent Take [...] Markers for Patients with Cardiovascular Disease Project #[id number] PI: Stacy Romero MD Please call [phone] with study related questions GENOMICS CARDIO RESEARCH OTHER*[id number] 08/19/2007 06/11/2016 Overview: Renamed Per Clinical Trials Billing Project. Study Titile: Genomic Markers for Patients with Cardiovascular Disease Project #[id number] PI: Stacy Romero MD Please call [phone] with study related questions TIA (transient ischemic [...] is refusing as patient is in facility, [facility]: [phone] * Telephone Encounter - Teena Bloom [...] D LEVEL ONCE IN A LIFETIME-USE SMARTSET# [id number] 1975 Zoster Vaccines (2 of 3) 08/22/2009 [...] the patient have Health Care Power of Data Management Analyst? Yes, not currently available Care Teams Motor Vehicle License Clerk Relationship Specialty Start Date End Date Israel Conrad DO [address] [place] [address] [place] [address] PCP - General Internal Medicine 09/05/22 documented as of this encounter
[2023-11-13] MEDS: ACETAMINOPHEN 500 MG TAB PO SCH (06:15)
[2023-11-13 06:52] LABS: Basophils # (auto) 0.06 K/uL (0.00-0.20); Basophils % (auto) 0.6 %; Eosinophils # (auto) 0.69 K/uL (0.00-0.50); Eosinophils % (auto) 7.5 %; Hematocrit (blood only) 37.5 % (42.0-52.0); Hemoglobin 12.4 g/dl (14.0-18.0); Immature Granulocytes # (auto) 0.05 K/uL (0.01-0.20); Immature Granulocytes % (auto) 0.5 %; Lymphocytes # (auto) 1.23 K/uL (1.20-3.40); Lymphocytes % (auto) 13.3 %; Mean Corpuscular Hemoglobin 32.8 pg (25.0-34.0); Mean Corpuscular Hgb Conc 33.1 g/dL (32.0-36.0); Mean Corpuscular Volume 99.2 fL (80.0-100.0); Mean Platelet Volume 10.2 fL (9.4-12.4); Monocytes # (auto) 0.64 K/uL (0.11-0.59); Monocytes % (auto) 6.9 %; Neutrophils # (auto) 6.58 K/uL (1.40-6.50); Neutrophils % (auto) 71.2 %; Platelet Count 189 K/uL (130-400); RDW Coefficient of Variation 15.6 % (11.5-14.5); Red Blood Count 3.78 M/uL (4.70-6.10); White Blood Count 9.25 K/ul (4.8-10.8)
[2023-11-13 07:06] LABS: Albumin Globulin Ratio 0.8 (0.9-2); Albumin Level 3.4 gm/dl (3.4-5.0); Bilirubin,Total 1.1 mg/dl (0.2-1.0); Creatinine Clr Calc Pharmacy 33.6 ml/min; Est GFR (African American) 58.6 ml/min; Est GFR (Non-African American) 50.6 ml/min; Globulin 4.2 gm/dl (2.5-4.0); Magnesium 1.8 mg/dl (1.7-2.4); Potassium 4.1 mmol/L (3.5-5.1); Total Protein 7.6 gm/dl (6.0-8.3)
[2023-11-13 07:18] LABS: Troponin I High Sensitivity 54.4 pg/ml (0-20)
--- NOTE | 2023-11-13 07:32 | Cardiology Consultation ---
Date of Consultation November 13, 2023 Assessment & Plan (1) Syncope and collapse: (2) Ischemic cardiomyopathy: (3) Pacemaker: (4) Chronic atrial fibrillation: (5) Status post transcatheter aortic valve replacement (TAVR) using bioprosthesis: (6) Pulmonary fibrosis: Plan 88-year-old male with very complex cardiac history admitted with observed syncopal spell with hypoxia and hypotension. No evidence of arrhythmia on pacemaker interrogation Patient this morning has responded to therapies and now alert Suspect orthostatic hypotension contributing to complaint. 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 Would retrial Entresto in hospital if hypotension orthostasis observed discontinue Change furosemide to 20 mg p.o. daily Patient requires continuous oxygen supplementation History of Present Illness Reason for Consultation: Syncope CHF Requesting Physician: [facility] Attending Physician: Woody Ricci MD History of Present Illness Patient is an 88-year-old male who presented from [facility] 11/12/2023 due to recurrent syncope. Underlying cardiac concerns 1. Atherosclerotic coronary disease with remote inferior myocardial infarction in 1983. 2. Coronary bypass grafting 1983 with BELLAMY graft to LAD, saphenous vein graft to the right coronary artery. 3. Acute saphenous vein graft thrombosis in the setting of antiplatelet withdrawal 2009. 4. Ischemic cardiomyopathy status post biventricular pacer/ NOT defibrillator implantation. 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 GEN change October 2019 at [facility]. 5. Mixed valvular heart disease 6. Past paroxysmal, now chronic atrial fibrillation. 7. Chronic obstructive lung disease, pulmonary fibrosis with hypoxia. 8. Class III congestive heart failure, 9.. Status post TAVR 26 mm Lee Óscar S3 valve via left femoral cutdown July 28, 2018 Recent admission from 11/05/2023 to 11/10/2023 secondary to abdominal discomfort and pneumonia. Treated with antibiotics. Cardiology consultation requested after syncopal episode in rn clinical review hours of November 06, 2023 most likely representing vagal episode versus orthostatic hypotension. Metoprolol succinate was reduced from 50 mg twice daily to 25 mg twice daily and Imdur was changed to 30 mg daily. Entresto was held. Volume status was difficult to discern and patient was felt to be hypervolemic and received several doses of IV Lasix during admission. Cardiac medications on discharge included: Atorvastatin 40 mg daily Aspirin 81 mg daily Digoxin 125 mcg 5 days/week Metoprolol succinate 50 mg twice daily Coumadin Furosemide 40 mg Friday only Imdur 30 mg daily (reduction from 60 mg) Entresto 24-26 mg, 0.5 tablets twice daily (reduction went from 1 full tablet twice daily) Since discharge patient has been feeling poorly noting a decline in his overall functional capacity and weakness. Was not eating much and was somewhat lethargic to at times per family. Yesterday, 11/12/2023, patient was getting cleaned up with staff and passed out. Syncope was witnessed by staff and patient was lowered slowly to the bed. Patient was not wearing his oxygen at the time--sats were in the 70s. During the syncopal episode he did lose function of bowel and bladder. Unfortunately, blood pressure was not checked during the event. Per outpatient records it appears the patient has been refu sing different medications at home and family is considering Hospice. In the emergency room pacemaker was interrogated without evidence of arrhythmia but did show evidence of volume overload. High-sensitivity troponins mildly elevated at 59.2 >>54.4. Patient was treated with 40 mg of IV Lasix Imdur and Entresto was held. Echocardiogram pending. Carotid Dopplers without hemodynamic significant stenosis. Head CT unremarkable Chest x-ray showing chronic interstitial lung disease with pulmonary edema and small pleural effusions Since hospitalization yesterday patient improved. Denies any complaints this morning though poor recollection of day prior history given progressive dementia Sitting upright in bed with normotensive pressures. No hypoxia on nasal cannula supplementation Social History: Prior smoker having quit in 1972 (60 pack year history). Occasional alcoholic drink. No illegal drug use. Resident of [facility] Past medical history: Atherosclerotic coronary disease Acute inferior myocardial infarction in 1983. Status post coronary artery bypass grafting in 1983, BELLAMY graft to LAD, saphenous vein graft to the right coronary artery. Cardiac catheterizations in 2005 and 2007 with progression of [place] vessel disease, with preserved grafts. Acute saphenous vein thrombosis in a setting of anti-platelet withdrawal for planned orthopaedic surgery in 2009. Ischemic cardiomyopathy, status post biventricular pacemaker implantation, Medtronic, generator exchange October 2019 at [facility]. Class III systolic congestive heart failure Chronic atrial fibrillation. Valvular heart disease (, MR), status post TAVR 26 mm Lee Óscar S3 valve via left femoral cutdown July 28, 2018 Transient ischemic attack Carotid stenosis Hypertension Dyslipidemia Chronic obstructive lung disease, pulmonary fibrosis with hypoxia. Pulmonary nodule Bilateral hilar lymphadenopathy Sleep apnea Chronic kidney disease Dementia BPH Osteoarthritis Spinal stenosis Allergies Allergy/AdvReac Type Severity Reaction Status Date / Time oxycodone Allergy Severe HALLUCINATI Verified 03/07/23 16:15 ONS TASHA Inhibitors AdvReac Intermediate Cough Verified 03/07/23 16:15 rosuvastatin AdvReac Intermediate CONSTIPATIO Verified 03/07/23 16:15 N niacin AdvReac Mild FLUSHING Verified 03/07/23 16:15 paroxetine AdvReac Mild drowsiness Verified 03/07/23 16:15 Home Medications Medication Instructions Recorded Confirmed Type pantoprazole 40 mg tablet,delayed 40 mg PO QAM 02/10/18 11/12/23 History release loratadine 10 mg tablet 10 mg PO DAILY 12/04/18 11/12/23 History atorvastatin 40 mg tablet 40 mg PO DAILY 10/09/20 11/12/23 History gabapentin 300 mg capsule 300 mg PO TID 10/09/20 11/12/23 History aspirin 81 mg tablet,delayed 81 mg PO DAILY 11/10/20 11/12/23 History release memantine 10 mg tablet (Namenda) 10 mg PO BID #30 tabs 02/12/22 11/12/23 Rx acetaminophen 500 mg tablet 1,000 mg PO BID 03/01/23 11/12/23 History alendronate 70 mg tablet 70 mg PO WK 03/01/23 11/12/23 History calcium carbonate (Calcium 600) 600 mg PO QDL 03/01/23 11/12/23 History diclofenac sodium 1 % topical gel 2 g topical TID pain 03/01/23 11/12/23 History digoxin 125 mcg (0.125 mg) tablet 125 mcg PO 5XWK 03/01/23 11/12/23 History donepezil 10 mg tablet 10 mg PO HS 03/01/23 11/12/23 History finasteride 5 mg tablet 5 mg PO DAILY 03/01/23 11/12/23 History metoprolol succinate 100 mg 50 mg PO BID 03/01/23 11/12/23 History tablet,extended release 24 hr multivitamin (Daily-Selena tablet) 1 tab PO DAILY 03/01/23 11/12/23 History nitroglycerin 0.4 mg sublingual 0.4 mg sublingual .Q 5 MIN PRN 03/01/23 11/12/23 History tablet Chest Pain sertraline 25 mg tablet 25 mg PO DAILY 03/01/23 11/12/23 History vit C 250 mg-vit E 90 mg-zinc 40 1 tab PO DAILY 03/01/23 11/12/23 History mg-copper 1 vo-[id number] capsule (PreserVision AREDS-2) Gluco/Chond/Msm/Turm 3 tab PO BID 11/05/23 11/12/23 History Menthol 4% Topical Analgesic See Rx Instructions .Route 11/05/23 11/12/23 History .COMPLEX PRN Pain cholecalciferol (vitamin D3) 125 125 mcg PO DAILY 11/05/23 11/12/23 History mcg (5,000 unit) capsule coenzyme Q10 200 mg capsule (Co 200 mg PO DAILY 11/05/23 11/12/23 History Q-10) diphenhydramine 25 2 tab PO HS 11/05/23 11/12/23 History mg-acetaminophen 500 mg tablet (Tylenol PM Extra Strength) furosemide 40 mg tablet 40 mg PO 3XWK 11/05/23 11/12/23 History warfarin 3 mg tablet 3 mg PO DAILY 11/05/23 11/12/23 History doxycycline hyclate 100 mg capsule 100 mg PO BID #3 caps 11/10/23 11/12/23 Rx isosorbide mononitrate 60 mg 30 mg (1/2 x 60 mg) PO HS #30 tabs 11/10/23 11/12/23 Rx tablet,extended release 24 hr sacubitril 24 mg-valsartan 26 mg 0.5 tab PO BID #30 tabs 11/10/23 11/12/23 Rx tablet (Entresto) tramadol 50 mg tablet 50 mg PO Q4 PRN Pain #0 tabs 11/10/23 11/12/23 Rx Patient History Medical History LOIS (obstructive sleep apnea) YEMI (acute kidney injury) Ventricular tachycardia Epistaxis Hypoxia Congestive heart failure, NYHA class III Hospitalization 10/2017, 02/2018 for acute on chronic CHF Sleep apnea WITH CPAP Arthritis History of TIA (transient ischemic attack) OVER 5 YEARS AGO AND NO RESIDUAL EFFECTS Hx of myocardial infarction 1983 AND HAD CABG X2 Surgical History S/P left inguinal hernia repair (04/04/20) Open Sliding indirect Left Inguinal Hernia Repair, Direct weakness,with Mesh Placement, Excision Lipoma of Cord Dr. [place] 04/04/2020 History of repair of inguinal hernia (11/06/18) Incarcerated right inguinal hernia repair and femoral hernia repair 11/06/18 Dr. Cho H/O carotid endarterectomy (~1997) 1997 on right Hx of aortic valve replacement (~05/2018) [facility] 05/2018 Status post right knee replacement S/P hernia repair RIGHT INGUINAL HERNIA REPAIR Colonoscopy (08/25/12) History of coronary artery bypass graft x 2 (~1983) 1983 - FOLLOWS WITH [facility] Stented coronary artery (~2014) 2014 ONE STENT WAS PLACED AND FOLLOWS WITH [facility] Family History Other Heart disease Social History Smoking Status: Former smoker Tobacco Type: Cigarettes Second Hand Exposure: No; Do You Dip or Chew Tobacco: No; Hx Alcohol Use: Yes Alcohol type: hard liquor Hx Substance Use: No Preferred Language: Lebanese Communication Ability: Effective Converter Operator Required: No Beliefs That Will Affect Care: None Current Living Situation: Personal Care Facility Current Living Situation Comment: [facility] current occupational status: retired Other Information That Helps Us Care for You: No Feels Safe at Home: Yes Safety Concerns: Feels Safe At This Time Assistive Devices: Glasses, Hospital Bed and Oxygen - Continuous Review of Systems Review of Systems: All systems reviewed & are unremarkable except as noted in HPI & below Physical Exam Constitutional: well developed; no acute distress Eyes: PERRL, conjunctivae normal, anicteric sclerae ENMT: external ear and nose normal, oropharynx normal Neck: trachea midline Respiratory: Auscultation: + crackles (Fine basilar, chronic) Results & Data Vital Signs (Past 12 Hours) Vital Signs Temp Pulse Pulse Resp BP BP Pulse Ox 11/13/23 07:00 70 11/13/23 03:11 36.5 C 70 18 128/75 94 11/13/23 01:09 70 130/74 11/12/23 21:57 70 11/12/23 21:44 73 11/12/23 21:30 11/12/23 20:58 36.5 C 70 22 145/69 H 100 11/12/23 19:59 70 11/12/23 19:51 71 26 H 144/59 H 96 11/12/23 19:17 70 11/12/23 19:15 70 22 127/65 95 O2 Del Method O2 Flow Rate 11/13/23 07:00 11/13/23 03:11 Room Air 11/13/23 01:09 11/12/23 21:57 11/12/23 21:44 11/12/23 21:30 Nasal Cannula 3 11/12/23 20:58 Nasal Cannula 3 11/12/23 19:59 11/12/23 19:51 Nasal Cannula 4 11/12/23 19:17 11/12/23 19:15 Nasal Cannula 4 Laboratory Results Cardiac Enzymes 11/12/23 11/12/23 11/12/23 Range/Units 13:44 17:09 23:01 AST 42 H (13-39) U/L Troponin I High Sens 40.0 H 38.8 H 59.2 H* D (0-20) pg/ml B-Natriuretic Peptide 411 H (0-100) pg/ml 11/13/23 Range/Units 06:07 AST 30 (13-39) U/L Troponin I High Sens 54.4 H* (0-20) pg/ml B-Natriuretic Peptide (0-100) pg/ml Coagulation 11/12/23 Range/Units 13:44 PT 33.9 H (9.0-12.0) Seconds APTT 34 H (21-31) Seconds B-Natriuretic Peptide 411 H (0-100) pg/ml CBC 11/12/23 11/13/23 Range/Units 13:44 06:07 WBC 9.10 9.25 (4.8-10.8) K/ul RBC 4.29 L 3.78 L (4.70-6.10) M/uL Hgb 14.0 12.4 L (14.0-18.0) g/dl Hct 43.5 37.5 L (42.0-52.0) % Plt Count 196 189 (130-400) K/uL Neut # (Auto) 7.05 H 6.58 H (1.40-6.50) K/uL Lymph # (Auto) 0.76 L 1.23 (1.20-3.40) K/uL [place] # (Auto) 0.50 0.64 H (0.11-0.59) K/uL Eos # (Auto) 0.70 H 0.69 H (0.00-0.50) K/uL Baso # (Auto) 0.06 0.06 (0.00-0.20) K/uL Comprehensive Metabolic Panel 11/12/23 11/13/23 Range/Units 13:44 06:07 Sodium 141 141 (136-145) mmol/L Potassium 4.9 4.1 (3.5-5.1) mmol/L Chloride 108 H 107 (98-107) mmol/L Carbon Dioxide 25 24 (21-32) mmol/L BUN 35 H 34 H (6-23) mg/dl Creatinine 1.47 H 1.26 (0.6-1.4) mg/dl Glucose 88 65 L (70-99(Fasting)) mg/dl Calcium 9.8 9.0 (8.6-10.3) mg/dl AST 42 H 30 (13-39) U/L ALT 25 18 (7-52) U/L Alkaline Phosphatase 75 64 (34-104) U/L Total Protein 8.8 H 7.6 (6.0-8.3) gm/dl Albumin 4.0 3.4 (3.4-5.0) gm/dl Intake and Output 11/12/23 11/13/23 11/13/23 22:59 06:59 14:59 Output Total 450 / 451 Balance - - Output: Urine Amount (Catheter) 450 / 450 External 450 / 450 # Bowel Movements 1 / 1 Other: # Unmeasured Voids 1 1 Weight 58.7 kg Weight Measurement Method Standing Scale Diagnostic Findings Echo 11/13/2023: Pending Echo 02/2023 LVEF 50 to 55% with moderate concentric LVH. Regional wall motion abnormality of the inferior and basal lateral wall. Left and right atrium severely enlarged Bioprosthetic aortic valve with stable TAVR gradients Moderate to severe MR RV systolic pressure elevated at greater than 60 mmHg Inferior vena cava moderately dilated.
[2023-11-13] MEDS: ASPIRIN 81 MG ECTAB PO SCH (08:37)
[2023-11-13] MEDS: SERTRALINE HCL 50 MG TABLET PO SCH (08:38)
[2023-11-13] MEDS: PANTOprazole 40 MG TAB PO SCH (08:38)
[2023-11-13] MEDS: FINASTERIDE 5 MG TAB PO SCH (08:38)
[2023-11-13] MEDS: ATORVASTATIN 40 MG TAB PO SCH (08:38)
[2023-11-13] MEDS: CEROVITE ADV FORMULA TAB PO SCH (08:38)
[2023-11-13] MEDS: LORATADINE 10 MG TAB PO SCH (08:38)
[2023-11-13] MEDS: CHOLECALCIFEROL 125 MCG (5,000 UNITS) TAB PO SCH (08:39)
[2023-11-13] MEDS ORDERED: NON-FORMULARY MEDICATION (Multivitamin [Daily-Vite] Tablet) PO SCH (09:00)
[2023-11-13] MEDS ORDERED: NON-FORMULARY MEDICATION (Coenzyme Q10 [Co Q-10] 200 mg Capsule) PO SCH (09:00)
[2023-11-13 11:10] LABS: INR 4.3 (0.9-1.1); Prothrombin Time 40.8 Seconds (9.0-12.0)
[2023-11-13] MEDS: CALCIUM CARBONATE 1250MG TAB PO SCH (11:50)
[2023-11-13] MEDS: VALSARTAN/SACUBITRIL 26/24MG TAB PO SCH (11:50)
--- NOTE | 2023-11-13 15:38 | Hospitalist Progress Note ---
Date of Service November 13, 2023 Assessment & Plan (1) Syncope and collapse: (2) Chronic atrial fibrillation: (3) Status post transcatheter aortic valve replacement (TAVR) using bioprosthesis: (4) Acute respiratory failure with hypoxia: (5) Acute on chronic diastolic CHF (congestive heart failure): (6) Supratherapeutic INR: Plan Patient is an 88 year old male with PMH chronic atrial fibrillation on warfarin, history of ischemic cardiomyopathy, hx of TAVR, pacemaker in place, CAD s/p CABG, HTN, HLD, pulmonary fibrosis, COPD, dementia, BPH, arthritis, LOIS, CKD III, and others listed below presented to ER after 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 Admitted 11/04-11/09/ PNA treated with antibiotics, course complicated by syncopal episode which was felt to be related to hypotension (Entresto and imdur reduced) and a/c CHF receiving IV diuresis. D/C back to [facility] progressively getting weaker, lack of intake. 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 His Oxygen was 70s on room air and on 6L was high 80s. He did lose function of bowel/bladder, Blood pressure normal this morning but it was not checked during event, no seizure like activity. Syncope/Collapse --CT head:No acute intracranial abnormality. --ECHO: Moderate concentric LVH. Moderate size septal, inferior wall motion abnormality with hypokinesis to akinesis of the segments. EF 50 to 50%. Left atrium is severely dilated. Right atrium is moderately dilated. Bioprosthetic aortic valve. Bioprosthetic leaflets are thickened and removed well. Gradient is normal for the prosthetic aortic valve. Trace aortic regurgitation. Moderate mitral regurgitation with mild to moderate tricuspid regurgitation. R ight ventricular systolic pressure is elevated at 50 to 60 mmHg. --Carotid USD:Atherosclerosis without hemodynamically significant stenosis. Normal antegrade vertebral flow bilaterally. 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 S/p CABG. Pacemaker in place --CXR:Cardiomegaly with persistent pulmonary edema and small pleural effusions. Chronic interstitial lung disease. -- Received IV Lasix Started on Lasix 20 mg daily Monitor I's and O's, daily weight Appreciate cardiology input Continue aspirin, atorvastatin, digoxin Imdur discontinued Also on Entresto, low-dose metoprolol Coumadin on hold due to supratherapeutic INR Continue supplemental oxygen--wean off as able CKD III Baseline cr 1.3-1.5 Creatinine at baseline Monitor renal function Generalized weakness PT/OT Fall precaution Recent PNA Treated with course of Unasyn and doxy H/O recurrent aspiration and per previous admission family agreeable to permissive aspiration Continue aspiration precautions BioFire negative Supratherapeutic INR hold warfarin INR 4.3 today Dementia continue Namenda and donepezil Delirium precautions COPD/Pulmonary Fibrosis chronic, stable DVT Px: Hold warfarin INR supratherapeutic Code Status DNR/DNI Admission and Anticipated Discharge Date Admission Date: November 12, 2023 Subjective Patient is seen and examined at bedside Poor historian Sitting in chair during my encounter with no distress Offers no new complaints Unaware of the events of syncopal episode yesterday Denies any chest pain, dyspnea Review of Systems Review of Systems: All systems reviewed & are unremarkable except as noted in Subjective Physical Exam Physical Exam: Physical Exam: Vitals signs as noted above General Appearance:Thin, frail, Elderly, no apparent distress Head: normocephalic, Atraumatic Eyes: normal inspection, EOMI Neck: supple, Trachea midline Respiratory/Chest: Normal breath sounds, CTA, No accessory muscle use Cardiovascular: S1, S2, +murmur,+Pacer Abdomen/GI:Soft, Non tender, Bowel sounds present Extremities/Musculoskeletal:normal inspection, no edema Neurologic/Psych:AAOX2, grossly no focal neurological deficits Skin: normal color, warm Results & Data Results & Data Vital Signs (Past 12 Hours) Vital Signs Temp Pulse Pulse Resp BP Pulse Ox Pulse Ox 11/13/23 13:00 71 11/13/23 11:35 94 11/13/23 11:01 36.7 C 69 20 128/71 95 11/13/23 08:00 11/13/23 07:14 36.6 C 71 18 133/71 97 11/13/23 07:00 70 O2 Del Method O2 Flow Rate O2 Flow Rate 11/13/23 13:00 11/13/23 11:35 3 11/13/23 11:01 Nasal Cannula 2 11/13/23 08:00 Nasal Cannula 3 11/13/23 07:14 Nasal Cannula 2 11/13/23 07:00 Laboratory Results Short CBC 11/13/23 Range/Units 06:07 WBC 9.25 (4.8-10.8) K/ul Hgb 12.4 L (14.0-18.0) g/dl Hct 37.5 L (42.0-52.0) % Plt Count 189 (130-400) K/uL BMP 11/13/23 06:07 Sodium 141 Potassium 4.1 Chloride 107 Carbon Dioxide 24 BUN 34 H Creatinine 1.26 Glucose 65 L Calcium 9.0 Liver Function 11/13/23 Range/Units 06:07 Total Bilirubin 1.1 H (0.2-1.0) mg/dl AST 30 (13-39) U/L ALT 18 (7-52) U/L Alkaline Phosphatase 64 (34-104) U/L Albumin 3.4 (3.4-5.0) gm/dl Urine 11/12/23 Range/Units 15:03 Urine Color Yellow Urine Appearance Clear (Clear) Urine pH 5.0 (4.5-7.5) Ur Specific [place] 1.012 (1.000-1.030) Urine Protein Trace H (Negative) Urine Glucose (UA) Negative (Negative)
--- OUTSIDE RECORDS SUMMARY | 2023-11-13 17:26 | External Medical Summary | Summary of Care ---
Author Name Unknown Organization [facility] Address [address] [place] [address] Phone [phone] Care Team Providers Care Spinal Surgeon Name Role Phone LazaroIsrael hanley Primary Care Provider [phone] Reason for Visit * Reason Onset Date Comments Advice 11/12/2023 Encounter Details Date Type Department Care Team (Late st Contact Info) Description 11/12/2023 Telephone Cardiology, [facility] [address] [place] [id number] Baldev Ruiz MD [address] [place] [id number] Advice Allergies Active Allergy Reactions Criticality Noted Date [...] FLONASE 50 MCG/ACT NA SUSP Administer 1 Alverda into nostril in the morning and 1 Alverda before bedtime. 0 08/04/2002 Active ASPIRIN 81 [...] cardiomyopathy,Aor tocoronary bypass status,Biventricul ar pacemaker check,Acute [place] (HCC),S/P primary angioplasty with coronary stent Take [...] Markers for Patients with Cardiovascular Disease Project #[id number] PI: Stacy Romero MD Please call [phone] with study related questions GENOMICS CARDIO RESEARCH OTHER*[id number] 08/19/2007 06/11/2016 Overview: Renamed Per Clinical Trials Billing Project. Study Titile: Genomic Markers for Patients with Cardiovascular Disease Project #[id number] PI: Stacy Romero MD Please call [phone] with study related questions TIA (transient ischemic [...] encounter Miscellaneous Notes * Telephone Encounter - Bruno Khan RN - 11/12/2023 12:44 PM EDT Called and spoke to Ethel at [facility] and reviewed the message with her from Dr. Ruiz in regards to the Entresto. She stated she understood. She also stated the patient wasjust sent to the ER for another syncopal episode. * Telephone Encounter - Baldev Ruiz MD - 11/12/2023 12:34 PM EDT It is okay to cut the Entresto tablet in half and give as recommended * Telephone Encounter - Gogo Bello OSA - 11/12/2023 10:18 AM EDT Person calling: Ethel Relationship to patient: Price Economist Care [facility] Number to return call: [phone] Reason for call(brief): Entresto Pharmacy: [facility] Provider Name: Dr. Ruiz Detailed message to office: Ethel calling in. Pt was recently in [facility] from 7.3.24 - 7.8.24. They changed pt's Entresto to 1/2tab twice a day and to hold the medication if BP systolic is under 90. Pharmacist at [facility] told [facility] this medication is not meant to be cut in half. Ethel is wanting to clarify if Dr. Ruiz is okay with medication being cut in half or if he wouldlike to change pt's medication order. Please advise. Thank you. *Daughter should be calling to set up Cardiology follow up appointment. 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 Yes, not currently available Care Teams Spinal Surgeon Relationship Specialty Start Date End Date Israel Conrad DO [address] [place] [id number] PCP - General Internal Medicine 09/05/22 documented as of this encounter
--- OUTSIDE RECORDS SUMMARY | 2023-11-13 17:27 | External Medical Summary | Summary of Care ---
Author Name Unknown Organization [facility] Address [address] [place] [address] Phone [phone] Care Team Providers Care Employment Specialist/Program Manager Name Role Phone LazaroIsrael hanley Primary Care Provider [phone] Reason for Visit * Reason Onset Date Comments Advice 11/12/2023 Encounter Details Date Type Department Care Team (Late st Contact Info) Description 11/12/2023 Telephone Cardiology, [facility] [address] [place] [address] Baldev Ruiz MD [address] [place] [address] Advice Allergies Active Allergy Reactions Criticality Noted [...] FLONASE 50 MCG/ACT NA SUSP Administer 1 [place] into nostril in the morning and 1 [place] before bedtime. 0 08/04/2002 Active ASPIRIN 81 [...] cardiomyopathy,Aor tocoronary bypass status,Biventricul ar pacemaker check,Acute [place] (HCC),S/P primary angioplasty with coronary stent Take [...] Markers for Patients with Cardiovascular Disease Project #[id number] PI: Stacy Romero MD Please call [phone] with study related questions GENOMICS CARDIO RESEARCH OTHER*[id number] 08/19/2007 06/11/2016 Overview: Renamed Per Clinical Trials Billing Project. Study Titile: Genomic Markers for Patients with Cardiovascular Disease Project #[id number] PI: Stacy Romero MD Please call [phone] with study related questions TIA (transient ischemic [...] EDT Called and spoke to Ethel at [facility] and reviewed the message with her [...] EDT Person calling: Ethel Relationship to patient: Occ Therapist Care [facility] Number to return call: [phone] Reason for call(brief): Entresto Pharmacy: [facility] Provider Name: Dr. Ruiz Detailed message to office: Ethel calling in. Pt was recently in [facility] from 7.3.24 - 7.8.24. They changed pt's Entresto to 1/2tab twice a day and to hold the medication if BP systolic is under 90. Pharmacist at [facility] told [facility] this medication is not meant to [...] D LEVEL ONCE IN A LIFETIME-USE SMARTSET# [id number] 1975 Zoster Vaccines (2 of 3) 08/22/2009 [...] the patient have Health Care Power of Manager Wound? Yes, not currently available Care Teams Employment Specialist/Program Manager Relationship Specialty Start Date End Date Israel Conrad DO [address] [place] [id number] PCP - General Internal Medicine 09/05/22 documented as of this encounter
--- OUTSIDE RECORDS SUMMARY | 2023-11-13 17:28 | External Medical Summary | Summary of Care ---
Author Name Unknown Organization [facility] Address [address] [place] [address] Phone [phone] Care Team Providers Care Rig Builder Name Role Phone LazaroIsrael hanley Primary Care Provider [phone] Reason for Visit * Reason Onset Date Comments Pacemaker Clinic 11/12/2023 Encounter Details Date Type Department Care Team (Late st Contact Info) Description 11/12/2023 Telephone Cardiology, [facility] [address] [facility] [place] [address] [place], Pacer Clinic [facility] [address] [facility] [place] [address] Pacemaker Clinic Allergies Active Allergy Reactions Criticality [...] FLONASE 50 MCG/ACT NA SUSP Administer 1 [place] into nostril in the morning and 1 [place] before bedtime. 0 08/04/2002 Active ASPIRIN 81 [...] cardiomyopathy,Aor tocoronary bypass status,Biventricul ar pacemaker check,Acute [place] (HCC),S/P primary angioplasty with coronary stent Take [...] Markers for Patients with Cardiovascular Disease Project #[id number] PI: Stacy Romero MD Please call [phone] with study related questions GENOMICS CARDIO RESEARCH OTHER*[id number] 08/19/2007 06/11/2016 Overview: Renamed Per Clinical Trials Billing Project. Study Titile: Genomic Markers for Patients with Cardiovascular Disease Project #[id number] PI: Stacy Romero MD Please call [phone] with study related questions TIA (transient ischemic [...] encounter Miscellaneous Notes * Telephone Encounter - Sukhi Pringle OSA - 11/12/2023 11:08 AM EDT Called daughter, Xochitl, she states that her father is not doing well. He is not eating, not compliant with meds, did not take yesterdays AM meds, but took evening meds. Daughter also states he may end-up back into the hospital. He did eat some ice-cream, yesterday. Daughter will contact me about making an appt. One of the aides stated he may be evaluated for hospice care so he can stay at [facility]. Daughter will call me, I gave her my direct number to call and update with what will happen in the future. She does want her father to be seen here, however, she needs to find out more about hospice care, because his dementia is degrading more. * Telephone Encounter - Teena Bloom CRNP - 11/12/2023 10:32 AM EDT Patient will need evaluated in office. Patient is known to Dr. Ruiz and Santa Khan PA-C. Also seen by Emile Kirkland PA-C inpatient. When he comes, be sure [facility] sends and updated med list noting which meds he is refusing. LESLI Mae * Telephone Encounter - Ethel [...] is refusing as patient is in facility, [facility]: [phone] X210 * Telephone Encounter - Teena Bloom [...] D LEVEL ONCE IN A LIFETIME-USE SMARTSET# [id number] 1975 Zoster Vaccines (2 of 3) 08/22/2009 06/27/2009, 05/2009 DXA Scan 10/18/2016 10/18/2014, 09/02, 09/16/2011, Additional history exists DTaP,Tdap,and Td Vaccines (2 - Td or Tdap) 06/05/2020 06/05/2010 COVID-19 Vaccine (4 - season) 2023 04/02/2021, 07/18/2020, 06/20/2020 Influenza Vaccine [...] the patient have Health Care Power of Capacity Planning Manager? Yes, not currently available Care Teams Rig Builder Relationship Specialty Start Date End Date Israel Conrad DO [address] [place] [id number] PCP - General Internal Medicine 09/05/22 documented as of this encounter
--- OUTSIDE RECORDS SUMMARY | 2023-11-13 17:29 | External Medical Summary | Summary of Care ---
Author Name Unknown Organization [facility] Address [address] [place] [address] Phone [phone] Care Team Providers Care Die Presser Name Role Phone LazaroIsrael hanley Primary Care Provider Reason for Visit * Reason Onset Date Comments Pacemaker Clinic 11/12/2023 Encounter Details Date Type Department Care Team (Late st Contact Info) Description 11/12/2023 Telephone Cardiology, [facility] [address] [facility] [place] [address] [place], Pacer Clinic [facility] [address] [facility] [place] [address] Pacemaker Clinic Allergies Active Allergy Reactions Criticality [...] FLONASE 50 MCG/ACT NA SUSP Administer 1 [place] into nostril in the morning and 1 [place] before bedtime. 0 08/04/2002 Active ASPIRIN 81 [...] cardiomyopathy,Aor tocoronary bypass status,Biventricul ar pacemaker check,Acute [place] (HCC),S/P primary angioplasty with coronary stent Take [...] Markers for Patients with Cardiovascular Disease Project #[id number] PI: Stacy Romero MD Please call [phone] with study related questions GENOMICS CARDIO RESEARCH OTHER*[id number] 08/19/2007 06/11/2016 Overview: Renamed Per Clinical Trials Billing Project. Study Titile: Genomic Markers for Patients with Cardiovascular Disease Project #[id number] PI: Stacy Romero MD Please call [phone] with study related questions TIA (transient ischemic [...] encounter Miscellaneous Notes * Telephone Encounter - Teena Bloom CRNP - 11/12/2023 10:32 AM EDT Patient will need evaluated in office. Patient is known to Dr. Ruiz and Santa Khan PA-C. Also seen by Emile Kirkland PA-C inpatient. When he comes, be sure [facility] sends and updated med list [...] is refusing as patient is in facility, [facility]: [phone] X210 * Telephone Encounter - Teena Bloom [...] D LEVEL ONCE IN A LIFETIME-USE SMARTSET# [id number] 1975 Zoster Vaccines (2 of 3) 08/22/2009 [...] the patient have Health Care Power of Production Illustrator? Yes, not currently available Care Teams Die Presser Relationship Specialty Start Date End Date Israel Conrad DO [address] [facility] [place] [address] PCP - General Internal Medicine 09/05/22 documented as of this encounter
[2023-11-14 06:49] LABS: BUN Creatinine Ratio 27.3 (10-20); Calcium 9.3 mg/dl (8.6-10.3); Creatinine Clr Calc Pharmacy 32.1 ml/min; Est GFR (African American) 55.4 ml/min; Est GFR (Non-African American) 47.8 ml/min; Magnesium 1.8 mg/dl (1.7-2.4); Potassium 3.9 mmol/L (3.5-5.1)
[2023-11-14 07:00] LABS: INR 2.3 (0.9-1.1)
[2023-11-14] MEDS: FUROSEMIDE 20 MG TAB PO SCH (08:08)
--- NOTE | 2023-11-14 11:47 | Cardiology Progress Note ---
Date of Service November 14, 2023 Assessment & Plan (1) Syncope and collapse: (2) Ischemic cardiomyopathy: (3) Pacemaker: (4) Chronic atrial fibrillation: (5) Status post transcatheter aortic valve replacement (TAVR) using bioprosthesis: (6) Pulmonary fibrosis: Plan 88-year-old male with very complex cardiac history admitted with observed syncopal spell with hypoxia and hypotension. No evidence of arrhythmia on pacemaker interrogation Patient this morning has responded to therapies and now alert Suspect orthostatic hypotension contributing to complaint. 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 Would retrial Entresto in hospital if hypotension orthostasis observed discontinue Change furosemide to 20 mg p.o. daily Patient requires continuous oxygen supplementation 11/14/2023 No further cardiac symptoms. Tolerating adjustments in medications. Telemetry paced rhythm in the 70s. No tachyarrhythmias. No hypotension on reduced dose Entresto Plan as previously recommended Continue medications after adjustments as already made Patient requires continuous oxygen supplementation. Would not taper Admission and Anticipated Discharge Date Admission Date: November 12, 2023 Subjective Patient seen and personally examined. Telemetry reviewed Patient denies dizziness or lightheadedness nausea Did have a large "explosive bowel movement" Currently comfortable. Review of Systems Review of Systems: All systems reviewed & are unremarkable except as noted in Subjective Physical Exam Constitutional: well developed; no acute distress Eyes: PERRL, conjunctivae normal, anicteric sclerae ENMT: external ear and nose normal, oropharynx normal Neck: trachea midline Respiratory: Auscultation: + crackles (Fine basilar, chronic) Results & Data Vital Signs (Past 12 Hours) Vital Signs Temp Pulse Pulse Resp BP BP Pulse Ox 11/14/23 10:59 36.4 C L 95 H 20 133/72 94 11/14/23 08:44 97 11/14/23 07:47 11/14/23 07:13 70 11/14/23 07:10 36.5 C 73 116/54 L 11/14/23 04:46 36.3 C L 72 20 129/64 95 11/14/23 01:28 70 11/13/23 23:55 36.5 C 70 18 130/58 L 94 O2 Del Method O2 Flow Rate 11/14/23 10:59 Nasal Cannula 2 11/14/23 08:44 Nasal Cannula 3 11/14/23 07:47 Nasal Cannula 3 11/14/23 07:13 11/14/23 07:10 Room Air 11/14/23 04:46 Nasal Cannula 3 11/14/23 01:28 11/13/23 23:55 Room Air Laboratory Results Laboratory Results - last 24 hr 11/14/23 06:10 PT 23.0 H INR 2.3 H Sodium 140 Potassium 3.9 Chloride 106 Carbon Dioxide 26 Anion Gap 8 BUN 36 H Creatinine 1.32 Est Cr Clr Drug Dosing 32.1 Est GFR ( Amer) 55.4 Est GFR (Non-Af Amer) 47.8 BUN/Creatinine Ratio 27.3 H Glucose 80 Calcium 9.3 Magnesium 1.8
--- NOTE | 2023-11-14 14:15 | Magnetic Resonance Report ---
Brain MRI WITHOUT CONTRAST HISTORY: Memory Issues/ Intermittent headache/Syncope TECHNIQUE: Multiplanar multisequence MRI of the brain was performed without the use of contrast. COMPARISON STUDY: Head CT 11/12/2023. Brain MRI 09/14/2020. FINDINGS: There is no mass, hematoma, midline shift, or acute infarct. The paranasal sinuses are magnolia r. The mastoid air cells are clear. The ventricles and sulci demonstrate moderate age-related involut ional changes. Scattered foci of T2 hyperintensity seen within the periventricular and subcortical wh ite matter are nonspecific but suggestive of mild microvascular ischemic changes. The major vascular flow voids at the skull base are well-maintained. The focal area of encephalomalacia with surrounding gliosis within left parietal lobe consistent with an old infarct. This remains unchanged. Prior bila teral lens replacement. IMPRESSION: No significant change compared to the prior study. No acute intracranial abnormality. ACT 112: Negative or not required by law. Electronically signed by: Sukhi Moscoso M.D. 11/14/2023 2:14 PM
[2023-11-14] MEDS: WARFARIN SOD 2 MG TAB PO SCH (16:05)
--- NOTE | 2023-11-14 17:01 | Hospitalist Progress Note ---
Date of Service November 14, 2023 Assessment & Plan (1) Syncope and collapse: (2) Chronic atrial fibrillation: (3) Status post transcatheter aortic valve replacement (TAVR) using bioprosthesis: (4) Acute respiratory failure with hypoxia: (5) Acute on chronic diastolic CHF (congestive heart failure): (6) Supratherapeutic INR: Plan Patient is an 88 year old male with PMH chronic atrial fibrillation on warfarin, history of ischemic cardiomyopathy, hx of TAVR, pacemaker in place, CAD s/p CABG, HTN, HLD, pulmonary fibrosis, COPD, dementia, BPH, arthritis, LOIS, CKD III, and others listed below presented to ER after sustaining a 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 Admitted 11/04-11/09/ PNA treated with antibiotics, course complicated by syncopal episode which was felt to be related to hypotension (Entresto and imdur reduced) and a/c CHF receiving IV diuresis. D/C back to [facility] progressively getting weaker, lack of intake. 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 His Oxygen was 70s on room air and on 6L was high 80s. He did lose function of bowel/bladder, Blood pressure normal this morning but it was not checked during event, no seizure like activity. Syncope/Collapse --MRI Brain:No significant change compared to the prior study. No acute intracranial abnormality. --CT head:No acute intracranial abnormality. --ECHO: Moderate concentric LVH. Moderate size septal, inferior wall motion abnormality with hypokinesis to akinesis of the segments. EF 50 to 50%. Left atrium is severely dilated. Right atrium is moderately dilated. Bioprosthetic aortic valve. Bioprosthetic leaflets are thickened and removed well. Gradient is normal for the prosthetic aortic valve. Trace aortic regurgitation. Moderate mitral regurgitation with mild to moderate tricuspid regurgitation. Right ventricular systolic pressure is elevated at 50 to 60 mmHg. --Carotid USD:Atherosclerosis without hemodynamically significant stenosis. Normal antegrade vertebral flow bilaterally. --Pacer was interrogated in ED -- Appreciate cardiology input --Imdur discontinued, metoprolol dose decreased to 25 mg twice daily Also on Entresto--dose adjusted Needs follow-up with cardiology on discharge Plan to discharge to rehab facility as able Ischemic PLEXIGLAS FORMER Acute on Chronic Systolic CHF HTN Hypoxia Cardiac pacemaker in situ Chronic atrial fib [facility] anticoagulation Valvular heart disease Chronic troponin elevation H/O CAD, history [place] in 1983. S/p CABG. Pacemaker in place --CXR:Cardiomegaly with persistent pulmonary edema and small pleural effusions. Chronic interstitial lung disease. -- Received IV Lasix Started on Lasix 20 mg daily Monitor I's and O's, daily weight Appreciate cardiology input Continue aspirin, atorvastatin, digoxin Imdur discontinued Also on Entresto, low-dose metoprolol Resume Coumadin today Monitor INR Continue supplemental oxygen CKD III Baseline cr 1.3-1.5 Creatinine at baseline Monitor renal function Generalized weakness PT/OT Fall precaution Recent PNA Treated with course of Unasyn and doxy H/O recurrent aspiration and per previous admission family agreeable to permissive aspiration Continue aspiration precautions BioFire negative Continue supplemental oxygen Supratherapeutic INR Resume Coumadin INR 2.3 today Dementia continue Namenda and donepezil Delirium precautions COPD/Pulmonary Fibrosis chronic, stable DVT Px: warfarin Code Status DNR/DNI Disposition Rehab as able Case management to help with discharge planning Admission and Anticipated Discharge Date Admission Date: November 12, 2023 Subjective Patient is seen and examined at bedside Poor historian Was alert, awake, more conversational this morning Mildly lethargic this afternoon Discussed with patient's family at bedside today No distress on exam MRI showed no acute process Denies any chest pain, dyspnea Review of Systems Review of Systems: All systems reviewed & are unremarkable except as noted in Subjective Physical Exam Physical Exam: Physical Exam: Vitals signs as noted above General Appearance:Thin, frail, Elderly, no apparent distress Head: normocephalic, Atraumatic Eyes: normal inspection, EOMI Neck: supple, Trachea midline Respiratory/Chest: Normal breath sounds, CTA, No accessory muscle use Cardiovascular: S1, S2, +murmur,+Pacer Abdomen/GI:Soft, Non tender, Bowel sounds present Extremities/Musculoskeletal:normal inspection, no edema Neurologic/Psych:AAOX2, grossly no focal neurological deficits Skin: normal color, warm Results & Data Results & Data Vital Signs (Past 12 Hours) Vital Signs Temp Pulse Pulse Resp BP Pulse Ox O2 Del Method 11/14/23 16:04 70 11/14/23 15:35 76 11/14/23 14:51 36.3 C L 70 20 135/74 93 Nasal Cannula 11/14/23 10:59 36.4 C L 95 H 20 133/72 94 Nasal Cannula 11/14/23 08:44 97 Nasal Cannula 11/14/23 07:47 Nasal Cannula 11/14/23 07:13 70 11/14/23 07:10 36.5 C 73 116/54 L Room Air O2 Flow Rate 11/14/23 16:04 11/14/23 15:35 11/14/23 14:51 2 11/14/23 10:59 2 11/14/23 08:44 3 11/14/23 07:47 3 11/14/23 07:13 11/14/23 07:10 Laboratory Results BMP 11/14/23 06:10 Sodium 140 Potassium 3.9 Chloride 106 Carbon Dioxide 26 BUN 36 H Creatinine 1.32 Glucose 80 Calcium 9.3
[2023-11-15 06:31] LABS: Hematocrit (blood only) 41.4 % (42.0-52.0); Hemoglobin 13.6 g/dl (14.0-18.0); Mean Corpuscular Hemoglobin 32.6 pg (25.0-34.0); Mean Corpuscular Hgb Conc 32.9 g/dL (32.0-36.0); Mean Corpuscular Volume 99.3 fL (80.0-100.0); Mean Platelet Volume 10.1 fL (9.4-12.4); Platelet Count 208 K/uL (130-400); RDW Coefficient of Variation 15.1 % (11.5-14.5); RDW Standard Deviation 55.8 fL (36.4-46.3); Red Blood Count 4.17 M/uL (4.70-6.10); White Blood Count 9.73 K/ul (4.8-10.8)
[2023-11-15 06:53] LABS: BUN Creatinine Ratio 26.6 (10-20); Calcium 9.4 mg/dl (8.6-10.3); Creatinine Clr Calc Pharmacy 37.2 ml/min; Est GFR (African American) 69.9 ml/min; Est GFR (Non-African American) 60.3 ml/min; Potassium 3.9 mmol/L (3.5-5.1)
[2023-11-15 06:54] LABS: INR 2.1 (0.9-1.1); Prothrombin Time 21.3 Seconds (9.0-12.0)
[2023-11-15] MEDS: ACETAMINOPHEN 1,000 MG/100 ML VIAL IV SCH (09:49)
--- NOTE | 2023-11-15 15:22 | CT Scan Report ---
CT SCAN OF THE ABDOMEN AND PELVIS WITHOUT IV CONTRAST CLINICAL HISTORY: Generalized abdominal pain. COMPARISON STUDY: Prior abdominal CT scans, most recently dated 11/06/2023 TECHNIQUE: CT scan of the abdomen and pelvis is performed from the lung bases to the proximal femora. Images are reviewed in the axial, sagittal, and coronal planes. IV contrast was not administered for this examination as per the referring clinician. Note that the examination was performed in signific antly suboptimal fashion without oral and IV contrast. The examination is also degraded by motion art ifact, as well as by streak artifact from the arms which could not be elevated above the abdomen. A d ose lowering technique was utilized adhering to the principles of ALARA. CT DOSE: 933.39 mGy.cm FINDINGS: Lung bases: Pacemaker leads are in place. The patient is status post midline sternotomy and aortic va lve surgery. The heart is markedly enlarged and without pericardial effusion. The coronary arteries a re densely calcified. There is diminished attenuation of the cardiac blood pool as compared to myocar dium suggesting anemia. The main pulmonary arteries are dilated suggesting pulmonary artery hypertens ion. Interstitial/fibrotic changes suspected at the lung bases. There are trace pleural effusions and dense bibasilar consolidation. A 9 mm right middle lobe pulmonary nodule on image #38 is unchanged d ating back to at least 2021. There are scattered calcified granulomas. Liver: The unenhanced liver is normal in size, contour, and attenuation. There is no intrahepatic yadira iary ductal dilatation. Gallbladder: Unremarkable. Spleen: Normal in size and attenuation. Pancreas: The unenhanced pancreas is grossly unremarkable. Adrenal glands: Unremarkable. Kidneys: The unenhanced kidneys are normal in size and without hydronephrosis. No renal calculi are i dentified and no ureteral stone is seen. A 16 mm complex/hyperdense cyst arising from the upper pole of the right kidney has been present dating back to at least 2007. A 10 mm cyst is seen in the left l ower pole. Abdominal vasculature: There is advanced. Sclerotic calcification and ectasia of the abdominal aorta. Bowel: There is rectosigmoid fecal retention and moderate constipation. There is advanced colonic div erticulosis without CT evidence of acute diverticulitis. No bowel obstruction is seen. The appendix i s well-visualized and normal Peritoneum: There is no intraperitoneal free air or abdominal ascites. Lymphadenopathy: None. Pelvic viscera: The prostate gland is markedly enlarged and heterogeneous. The bladder wall is thicke guillermo/trabeculated indicating chronic outlet obstruction. There is evidence of previous right inguinal herniorrhaphy. Skeletal structures: The skeletal structures are osteopenic. 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 There is advanced multiple sacral spond ylosis. No lytic or blastic lesions are seen. IMPRESSION: 1. Suboptimal examination without oral and IV contrast. There is also significant streak and motion a rtifact. 2. No acute infectious or inflammatory findings are identified in the abdomen or pelvis. 3. Trace pleural effusions with dense bibasilar airspace consolidation. The appearance is typical for pneumonia/aspiration pneumonitis, which is likely superimposed on chronic interstitial/fibrotic lung disease. Clinical correlation will be required and radiographic follow-up to resolution is recommend ed. 4. Marked cardiomegaly and cardiac pacemaker with evidence of pulmonary artery hypertension. 5. Rectosigmoid fecal retention and moderate constipation. 6. Advanced colonic diverticulosis without CT evidence of acute diverticulitis. 7. Additional findings as above. ACT 112: Negative or not required by law. Electronically signed by: Glen Noriega M.D. 11/15/2023 3:19 PM
[2023-11-15] MEDS ORDERED: bisacodyL 10 MG SUPP PR PRN (15:27)
--- NOTE | 2023-11-15 15:32 | Hospitalist Progress Note ---
Date of Service November 15, 2023 Assessment & Plan (1) Syncope and collapse: (2) Chronic atrial fibrillation: (3) Status post transcatheter aortic valve replacement (TAVR) using bioprosthesis: (4) Acute respiratory failure with hypoxia: (5) Acute on chronic diastolic CHF (congestive heart failure): (6) Supratherapeutic INR: Plan Patient is an 88 year old male with PMH chronic atrial fibrillation on warfarin, history of ischemic cardiomyopathy, hx of TAVR, pacemaker in place, CAD s/p CABG, HTN, HLD, pulmonary fibrosis, COPD, dementia, BPH, arthritis, LOIS, CKD III, and others listed below presented to ER after sustaining a syncope episode [employer]ER [employer]N. Admitted 11/04-11/09/ PNA treated with antibiotics, course complicated by syncopal episode which was felt to be related to hypotension (Entresto and imdur reduced) and a/c CHF receiving IV diuresis. D/C back to [facility] progressively getting weaker, lack of intake. 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 His Oxygen was 70s on room air and on 6L was high 80s. He did lose function of bowel/bladder, Blood pressure normal this morning but it was not checked during event, no seizure like activity. Syncope/Collapse --MRI Brain:No significant change compared to the prior study. No acute intracranial abnormality. --CT head:No acute intracranial abnormality. --ECHO: Moderate concentric LVH. Moderate size septal, inferior wall motion abnormality with hypokinesis to akinesis of the segments. EF 50 to 50%. Left atrium is severely dilated. Right atrium is moderately dilated. Bioprosthetic aortic valve. Bioprosthetic leaflets are thickened and removed well. Gradient is normal for the prosthetic aortic valve. Trace aortic regurgitation. Moderate mitral regurgitation with mild to moderate tricuspid regurgitation. Right ventricular systolic pressure is elevated at 50 to 60 mmHg. --Carotid USD:Atherosclerosis without hemodynamically significant stenosis. Normal antegrade vertebral flow bilaterally. 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 S/p CABG. Pacemaker in place --CXR:Cardiomegaly with persistent pulmonary edema and small pleural effusions. Chronic interstitial lung disease. -- Received IV Lasix Started on Lasix 20 mg daily Monitor I's and O's, daily weight Appreciate cardiology input Continue aspirin, atorvastatin, digoxin Imdur discontinued Also on Entresto, low-dose metoprolol continue Coumadin Monitor INR 2.1 today Continue supplemental oxygen recommended by cardiology CKD III Baseline cr 1.3-1.5 Creatinine at baseline Monitor renal function Generalized weakness PT/OT Fall precaution Recent PNA Treated with course of Unasyn and doxy H/O recurrent aspiration and per previous admission family agreeable to permissive aspiration Continue aspiration precautions BioFire negative Continue supplemental oxygen Supratherapeutic INR Resolved Dementia continue Namenda and donepezil Delirium precautions COPD/Pulmonary Fibrosis chronic, stable DVT Px: warfarin Code Status DNR/DNI Disposition Rehab as able Case management to help with discharge planning Admission and Anticipated Discharge Date Admission Date: November 12, 2023 Subjective Patient is seen and examined at bedside Poor historian Reported abdominal pain to RN CT abdomen suggestive constipation, fecal retention Was drowsy during my encounter Showed some distress on abdominal exam Review of Systems Review of Systems: All systems reviewed & are unremarkable except as noted in Subjective Physical Exam Physical Exam: Physical Exam: Vitals signs as noted above General Appearance:Thin, frail, Elderly, no apparent distress Head: normocephalic, Atraumatic Eyes: normal inspection, EOMI Neck: supple, Trachea midline Respiratory/Chest: Normal breath sounds, CTA, No accessory muscle use Cardiovascular: S1, S2, +murmur,+Pacer Abdomen/GI:Soft, Non tender, Bowel sounds present Extremities/Musculoskeletal:normal inspection, no edema Neurologic/Psych:AAOX2, grossly no focal neurological deficits Skin: normal color, warm Results & Data Results & Data Vital Signs (Past 12 Hours) Vital Signs Temp Pulse Pulse Resp BP Pulse Ox O2 Del Method 11/15/23 15:17 36.0 C L 70 20 131/76 96 Nasal Cannula 11/15/23 14:47 70 11/15/23 11:27 36.8 C 69 16 130/73 93 Nasal Cannula 11/15/23 08:20 Nasal Cannula 11/15/23 07:48 36.6 C 70 16 143/70 H 96 Room Air 11/15/23 07:09 70 O2 Flow Rate 11/15/23 15:17 3 11/15/23 14:47 11/15/23 11:27 3 11/15/23 08:20 3 11/15/23 07:48 11/15/23 07:09 Laboratory Results Short CBC 11/15/23 Range/Units 05:50 WBC 9.73 (4.8-10.8) K/ul Hgb 13.6 L (14.0-18.0) g/dl Hct 41.4 L (42.0-52.0) % Plt Count 208 (130-400) K/uL BMP 11/15/23 05:50 Sodium 142 Potassium 3.9 Chloride 108 H Carbon Dioxide 28 BUN 29 H Creatinine 1.09 Glucose 77 Calcium 9.4
[2023-11-15] MEDS: bisacodyL 10 MG SUPP PR ONE (15:47)
[2023-11-15] MEDS: DOCUSATE SODIUM 100 MG CAP PO SCH (21:08)
[2023-11-16] MEDS: METOPROLOL SUCC 25MG EXT REL TAB PO STA (06:25)
[2023-11-16] MEDS: POTASSIUM CHLORIDE PWD 20 MEQ PACK PO STA (06:25)
[2023-11-16] MEDS: MAGNESIUM SULFATE / D5W 1 GM/100 ML BAG IV ONE (06:25)
[2023-11-16 06:29] LABS: BUN Creatinine Ratio 23.8 (10-20); Calcium 9.2 mg/dl (8.6-10.3); Creatinine Clr Calc Pharmacy 41.2 ml/min; Est GFR (African American) 76.6 ml/min; Est GFR (Non-African American) 66.1 ml/min; Potassium 3.9 mmol/L (3.5-5.1)
[2023-11-16 06:58] LABS: INR 2.5 (0.9-1.1); Prothrombin Time 25.1 Seconds (9.0-12.0)
[2023-11-16 07:06] LABS: Magnesium 1.8 mg/dl (1.7-2.4)
[2023-11-16] MEDS: POLYETHYLENE (MIRALAX) 17 GM PACK PO SCH (10:57)
[2023-11-16] MEDS: SENNA 8.6 MG TAB PO SCH (10:57)
--- NOTE | 2023-11-16 12:00 | Hospitalist Progress Note ---
Date of Service November 16, 2023 Assessment & Plan (1) Syncope and collapse: (2) Chronic atrial fibrillation: (3) Status post transcatheter aortic valve replacement (TAVR) using bioprosthesis: (4) Acute respiratory failure with hypoxia: (5) Acute on chronic diastolic CHF (congestive heart failure): (6) Supratherapeutic INR: Plan Patient is an 88 year old male with PMH chronic atrial fibrillation on warfarin, history of ischemic cardiomyopathy, hx of TAVR, pacemaker in place, CAD s/p CABG, HTN, HLD, pulmonary fibrosis, COPD, dementia, BPH, arthritis, LOIS, CKD III, and others listed below presented to ER after sustaining a syncope episode MAITRE D. Admitted 11/04-11/09/ PNA treated with antibiotics, course complicated by syncopal episode which was felt to be related to hypotension (Entresto and imdur reduced) and a/c CHF receiving IV diuresis. D/C back to [facility] progressively getting weaker, lack of intake. Witnessed syncopal episode MAITRE D - He was actually standing and starring, he took his oxygen off and he was turning, "purple." He then slumped down and staff grabbed him and laid him down so he did not fall. His Oxygen was 70s on room air and on 6L was high 80s. He did lose function of bowel/bladder, Blood pressure normal this morning but it was not checked during event, no seizure like activity. Syncope/Collapse --MRI Brain:No significant change compared to the prior study. No acute intracranial abnormality. --CT head:No acute intracranial abnormality. --ECHO: Moderate concentric LVH. Moderate size septal, inferior wall motion abnormality with hypokinesis to akinesis of the segments. EF 50 to 50%. Left atrium is severely dilated. Right atrium is moderately dilated. Bioprosthetic aortic valve. Bioprosthetic leaflets are thickened and removed well. Gradient is normal for the prosthetic aortic valve. Trace aortic regurgitation. Moderate mitral regurgitation with mild to moderate tricuspid regurgitation. Right ventricular systolic pressure is elevated at 50 to 60 mmHg. --Carotid USD:Atherosclerosis without hemodynamically significant stenosis. Normal antegrade vertebral flow bilaterally. 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 S/p CABG. Pacemaker in place --CXR:Cardiomegaly with persistent pulmonary edema and small pleural effusions. Chronic interstitial lung disease. -- Received IV Lasix Started on Lasix 20 mg daily Monitor I's and O's, daily weight Appreciate cardiology input Continue aspirin, atorvastatin, digoxin Imdur discontinued Also on Entresto, low-dose metoprolol continue Coumadin Monitor INR 2.1 today Continue supplemental oxygen recommended by cardiology CKD III Baseline cr 1.3-1.5 Creatinine at baseline Monitor renal function Generalized weakness PT/OT Fall precaution Recent PNA Treated with course of Unasyn and doxy H/O recurrent aspiration and per previous admission family agreeable to permiss michael aspiration Continue aspiration precautions BioFire negative Continue supplemental oxygen Supratherapeutic INR Resolved Dementia continue Namenda and donepezil Delirium precautions COPD/Pulmonary Fibrosis chronic, stable DVT Px: warfarin Code Status DNR/DNI Disposition Rehab Admission and Anticipated Discharge Date Admission Date: November 12, 2023 Subjective Patient is seen and examined at bedside Poor historian Patient had bowel movements after Dulcolax yesterday per RN Patient feels better today Updated patient's daughter over the phone No new complaints Plan to be discharged to rehab facility today Review of Systems Review of Systems: All systems reviewed & are unremarkable except as noted in Subjective Physical Exam Physical Exam: Physical Exam: Vitals signs as noted above General Appearance:Thin, frail, Elderly, no apparent distress Head: normocephalic, Atraumatic Eyes: normal inspection, EOMI Neck: supple, Trachea midline Respiratory/Chest: Normal breath sounds, CTA, No accessory muscle use Cardiovascular: S1, S2, +murmur,+Pacer Abdomen/GI:Soft, Non tender, Bowel sounds present Extremities/Musculoskeletal:normal inspection, no edema Neurologic/Psych:AAOX2, grossly no focal neurological deficits Skin: normal color, warm Results & Data Results & Data Vital Signs (Past 12 Hours) Vital Signs Temp Pulse Pulse Resp BP Pulse Ox O2 Del Method 11/16/23 11:56 36.5 C 68 16 122/75 95 Nasal Cannula 11/16/23 07:49 36.4 C L 70 16 123/68 94 Nasal Cannula 11/16/23 07:26 70 11/16/23 06:24 36.6 C 70 16 131/72 91 Nasal Cannula 11/16/23 02:50 36.8 C 71 18 138/72 95 Nasal Cannula O2 Flow Rate 11/16/23 11:56 3 11/16/23 07:49 3 11/16/23 07:26 11/16/23 06:24 3 11/16/23 02:50 3 Laboratory Results [facility] 11/16/23 05:40 Sodium 142 Potassium 3.9 Chloride 108 H Carbon Dioxide 26 BUN 24 H Creatinine 1.01 Glucose 75 Calcium 9.2
--- NOTE | 2023-11-16 12:20 | Discharge Summary ---
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 Outpt records reviewed and hx obtained from ED provider. of significance patient recently hospitalized on 11/04 and discharged on 11/09 secondary to pneumonia. His hospital course was complicated with additional syncopal episode in which patient's blood pressure was very low. He was seen and evaluated by cardiology and his Entresto and Imdur reduced by half. It was also felt that he was having acute on chronic CHF and therefore he received IV diuresis. He was discharged back to personal care facility. Per ED provider family notes that patient has had increased oral intake and increased lethargy. 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 His Oxygen was 70s on room air and on 6L was high 80s. He did lose function of bowel/bladder, Blood pressure normal this morning but it was not checked during event, no seizure like activity. Pacemaker interrogation was performed in ED which revealed volume overload, but no arrhythmia or abnormality. Pt is a poor historian. He currently denies any complaints. He denies f/c/s, chest pain, sob, n/v/d, abd pain. 2 Daughters are at bedside. Daughter Xochitl reports she was called from cardiology office this a.m. alerting that his pacemaker was reading as possible CHF. Daughters report he has been much more lethargic and, "out of it," more than normal. They do expect it to take a few days for him to re orient back to [facility] but this was not his normal self. He has not been eating well and more weak. Staff talked to family yesterday about option of hospice to give him more support to stay at [facility]. Admission Exam Per Admitting Provider Constitutional: Elderly, M, cachectic and weak, vitals as above, NAD, sitting up in bed, pleasant, conversing easily Head: Normocephalic, Atraumatic Eyes: PERRL, conjunctivae normal, anicteric sclerae ENMT: external ear and nose normal, oropharynx normal dry membranes Neck: trachea midline, no thyromegaly normal visual inspection Respiratory: normal respiratory effort, lungs clear to auscultation, no wheeze, rales, rhonchi. Normal insp/exp effort, no accessory muscle use Cardiovascular: RRR, 2/6 JUANJO LLSB , ACW pacer noted, no edema Vessels: no JVD or carotid bruit Chest: normal inspection of chest Abdomen: normal bowel sounds, soft, nontender, no hepatosplenomegaly Musculoskeletal: no cyanosis or clubbing, extremities motor strength 5/5 Skin: no rashes, warm and dry normal turgor Neurologic: no face palsy, no dysarthria CN's II-XI intact bilaterally and moves all extremities Psychiatric: A+Ox2 to person and place, euthymic affect : condom cath in place draining yellow urine Principal Diagnosis Syncope/Collapse Fecal retention/constipation Acute on Chronic Systolic CHF Hypoxia Discharge Data Allergies Allergy/AdvReac Type Severity Reaction Status Date / Time oxycodone Allergy Severe HALLUCINATI Verified 03/07/23 16:15 ONS TASHA Inhibitors AdvReac Intermediate Cough Verified 03/07/23 16:15 rosuvastatin AdvReac Intermediate CONSTIPATIO Verified 03/07/23 16:15 N niacin AdvReac Mild FLUSHING Verified 03/07/23 16:15 paroxetine AdvReac Mild drowsiness Verified 03/07/23 16:15 Consultations 11/12/23 15:10 ED Decision to Admit Stat 11/12/23 18:25 Consult Cardiology Routine Procedures Performed Laboratory Results WBC 9.73 K/ul (4.8-10.8) 11/15/23 05:50 RBC 4.17 M/uL (4.70-6.10) L 11/15/23 05:50 Hgb 13.6 g/dl (14.0-18.0) L 11/15/23 05:50 Hct 41.4 % (42.0-52.0) L 11/15/23 05:50 MCV 99.3 fL (80.0-100.0) 11/15/23 05:50 MCH 32.6 pg (25.0-34.0) 11/15/23 05:50 MCHC 32.9 g/dL (32.0-36.0) 11/15/23 05:50 RDW Std Deviation 55.8 fL (36.4-46.3) H 11/15/23 05:50 RDW Coeff of Sawyer 15.1 % (11.5-14.5) H 11/15/23 05:50 Plt Count 208 K/uL (130-400) 11/15/23 05:50 MPV 10.1 fL (9.4-12.4) 11/15/23 05:50 Immature Gran % (Auto) 0.5 % 11/13/23 06:07 Neut % (Auto) 71.2 % 11/13/23 06:07 Lymph % (Auto) 13.3 % 11/13/23 06:07 [place]bach % (Auto) 6.9 % 11/13/23 06:07 Eos % (Auto) 7.5 % 11/13/23 06:07 Baso % (Auto) 0.6 % 11/13/23 06:07 Neut # (Auto) 6.58 K/uL (1.40-6.50) H 11/13/23 06:07 Lymph # (Auto) 1.23 K/uL (1.20-3.40) 11/13/23 06:07 [place]iebach # (Auto) 0.64 K/uL (0.11-0.59) H 11/13/23 06:07 Eos # (Auto) 0.69 K/uL (0.00-0.50) H 11/13/23 06:07 Baso # (Auto) 0.06 K/uL (0.00-0.20) 11/13/23 06:07 Immature Gran # (Auto) 0.05 K/uL (0.01-0.20) 11/13/23 06:07 PT 25.1 Seconds (9.0-12.0) H 11/16/23 05:40 INR 2.5 (0.9-1.1) H 11/16/23 05:40 APTT 34 Seconds (21-31) H 11/12/23 13:44 PTT Ratio 1.3 11/12/23 13:44 VBG pH 7.33 (7.36-7.41) L 11/12/23 13:44 VBG pCO2 51 mmHg (38-50) H 11/12/23 13:44 VBG pO2 24 mmHg 11/12/23 13:44 VBG HCO3 27 mmol/L 11/12/23 13:44 VBG O2 Saturation < 60.0 % 11/12/23 13:44 VBG Base Excess 0.2 mEq/L 11/12/23 13:44 Sodium 142 mmol/L (136-145) 11/16/23 05:40 Potassium 3.9 mmol/L (3.5-5.1) 11/16/23 05:40 Chloride 108 mmol/L (98-107) H 11/16/23 05:40 Carbon Dioxide 26 mmol/L (21-32) 11/16/23 05:40 Anion Gap 8 (3-11) 11/16/23 05:40 BUN 24 mg/dl (6-23) H 11/16/23 05:40 Creatinine 1.01 mg/dl (0.6-1.4) 11/16/23 05:40 Est Cr Clr Drug Dosing 41.2 ml/min 11/16/23 05:40 Est GFR ( Amer) 76.6 ml/min 11/16/23 05:40 Est GFR (Non-Af Amer) 66.1 ml/min 11/16/23 05:40 BUN/Creatinine Ratio 23.8 (10-20) H 11/16/23 05:40 Glucose 75 mg/dl (70-99(Fasting)) 11/16/23 05:40 Calcium 9.2 mg/dl (8.6-10.3) 11/16/23 05:40 Magnesium 1.8 mg/dl (1.7-2.4) 11/16/23 05:40 Total Bilirubin 1.1 mg/dl (0.2-1.0) H 11/13/23 06:07 AST 30 U/L (13-39) 11/13/23 06:07 ALT 18 U/L (7-52) 11/13/23 06:07 Alkaline Phosphatase 64 U/L (34-104) 11/13/23 06:07 Troponin I High Sens 54.4 pg/ml (0-20) H* 11/13/23 06:07 B-Natriuretic Peptide 411 pg/ml (0-100) H 11/12/23 13:44 Total Protein 7.6 gm/dl (6.0-8.3) 11/13/23 06:07 Albumin 3.4 gm/dl (3.4-5.0) 11/13/23 06:07 Globulin 4.2 gm/dl (2.5-4.0) H 11/13/23 06:07 Albumin/Globulin Ratio 0.8 (0.9-2) L 11/13/23 06:07 Procalcitonin 0.03 ng/ml (0-0.5) 11/12/23 13:44 TSH 1.568 uIu/ml (0.300-4.500) 11/12/23 13:44 Urine Color Yellow 11/12/23 15:03 Urine Appearance Clear (Clear) 11/12/23 15:03 Urine pH 5.0 (4.5-7.5) 11/12/23 15:03 Ur Specific Libby 1.012 (1.000-1.030) 11/12/23 15:03 Urine Protein Trace (Negative) H 11/12/23 15:03 Urine Glucose (UA) Negative (Negative) 11/12/23 15:03 Urine Ketones Negative (Negative) 11/12/23 15:03 Urine Blood 1+ (Negative) H 11/12/23 15:03 Urine Nitrite Negative (Negative) 11/12/23 15:03 Urine Bilirubin Negative (Negative) 11/12/23 15:03 Urine Urobilinogen Negative (Negative) 11/12/23 15:03 Ur Leukocyte Esterase Negative (Negative) 11/12/23 15:03 Urine WBC (Auto) 0-5 /hpf (0-5) 11/12/23 15:03 Urine RBC (Auto) 0-2 /hpf (0-2) 11/12/23 15:03 U Hyaline Cast (Auto) 11-20 /lpf (0-2) H 11/12/23 15:03 U Epithel Cells (Auto) 0-2 /hpf (0-2) 11/12/23 15:03 Urine Bacteria (Auto) None Seen (None Seen) 11/12/23 15:03 Digoxin 1.0 ng/ml (0.8-2.0) 11/12/23 13:44 Adenovirus (PCR) Not Detected (NotDetected) 11/12/23 15:03 B. pertussis DNA (PCR) Not Detected (NotDetected) 11/12/23 15:03 B.parapertussis DNA PCR Not Detected (NotDetected) 11/12/23 15:03 C. pneumoniae DNA (PCR) Not Detected (NotDetected) 11/12/23 15:03 Coronavirus OC43 (PCR) Not Detected (NotDetected) 11/12/23 15:03 Coronavirus HKU1 (PCR) Not Detected (NotDetected) 11/12/23 15:03 Coronavirus 229E (PCR) Not Detected (NotDetected) 11/12/23 15:03 SARS-CoV-2 (PCR) Not Detected (NotDetected) 11/12/23 15:03 Coronavirus NL63 (PCR) Not Detected (NotDetected) 11/12/23 15:03 Human Metapneumovir PCR Not Detected (NotDetected) 11/12/23 15:03 Influenza Type A (PCR) Not Detected (NotDetected) 11/12/23 15:03 Influenza Type B (PCR) Not Detected (NotDetected) 11/12/23 15:03 M. pneumoniae (PCR) Not Detected (NotDetected) 11/12/23 15:03 Parainfluenza 1 (PCR) Not Detected (NotDetected) 11/12/23 15:03 Parainfluenza 2 (PCR) Not Detected (NotDetected) 11/12/23 15:03 Parainfluenza 3 (PCR) Not Detected (NotDetected) 11/12/23 15:03 Parainfluenza 4 (PCR) Not Detected (NotDetected) 11/12/23 15:03 RSV (PCR) Not Detected (NotDetected) 11/12/23 15:03 Entero/Rhino (PCR) Not Detected (NotDetected) 11/12/23 15:03 Impressions Chest X-Ray 11/12/23 12:57 XR chest 1V portable HISTORY: 88 years-old Male syncope, sob acute syncope with shortness of breath COMPARISON: 11/06/2023 TECHNIQUE: AP view the chest FINDINGS: Cardiac silhouette is enlarged. Median sternotomy with cardiac valvular prosthesis. Left subclavian pacer. No pneumothorax. Small pleural effusions. Mixed interstitial and alveolar opacities redemonstrated. Bones appear grossly intact. IMPRESSION: 1. Cardiomegaly with persistent pulmonary edema and small pleural effusions. 2. Chronic interstitial lung disease. ACT 112: Negative or not required by law. The above report was generated using voice recognition software. It may contain grammatical, syntax or spelling errors. Electronically signed by: Luke Kaur M.D. 11/12/2023 2:[address] 11/12/23 12:57 CT head/brain wo con CLINICAL HISTORY: 88 years-old Male with syncope, weak. Acute syncope with weakness TECHNIQUE: Multiple axial CT images of the head were obtained without contrast. A dose lowering technique was utilized adhering to the principles of ALARA. CT DOSE: 703.85 mGy.cm COMPARISON: 11/05/2023 FINDINGS: No acute intracranial hemorrhage, midline shift, intracranial mass, hydrocephalus, territorial ischemia or abnormal extra-axial collection. Involutional changes with chronic microvascular ischemic disease. Chronic left parieto-occipital infarct with encephalomalacia redemonstrated. The calvarium is intact. Prior bilateral lens repair. The paranasal sinuses, mastoid air cells, and middle ear cavities are clear. IMPRESSION: No acute intracranial abnormality. ACT 112: Negative or not required by law. The above report was generated using voice recognition software. It may contain grammatical, syntax or spelling errors. Electronically signed by: Luke Kaur M.D. 11/12/2023 2:10 PM Carotid Doppler Study 11/12/23 15:36 US carotid doppler BI CLINICAL HISTORY: 88 years-old Male with syncope. COMPARISON: None TECHNIQUE: Multiple real time sonographic images of the carotid bifurcations were obtained assessing roger scale, color Doppler and spectral wave form appearance FINDINGS: RIGHT CAROTID: The peak systolic velocity measured in the right ICA is 84 cm/sec. The end diastolic velocity measured 13 cm/sec. The ICA to CCA ratio measured 0.99 which correlates with a stenosis of 0-50%. Moderate atherosclerosis. LEFT CAROTID: The peak systolic velocity measured in the left ICA is 83 cm/sec. The end diastolic velocity measured 14 cm/sec. The ICA to CCA ratio measured 0.69 which correlates with a stenosis of 0-50%. Moderate atherosclerosis. There is normal antegrade vertebral flow bilaterally. IMPRESSION: 1. Atherosclerosis without hemodynamically significant stenosis. 2. Normal antegrade vertebral flow bilaterally. ACT 112: Negative or not required by law. The above report was generated using voice recognition software. It may contain grammatical, syntax or spelling errors. Electronically signed by: Luke Kaur M.D. 11/12/2023 5:10 PM Brain MRI 11/14/23 00:00 Brain MRI WITHOUT CONTRAST HISTORY: Memory Issues/ Intermittent headache/Syncope TECHNIQUE: Multiplanar multisequence MRI of the brain was performed without the use of contrast. COMPARISON STUDY: Head CT 11/12/2023. Brain MRI 09/14/2020. FINDINGS: There is no mass, hematoma, midline shift, or acute infarct. The paranasal sinuses are clear. The mastoid air cells are clear. The ventricles and sulci demonstrate moderate age-related involutional changes. Scattered foci of T2 hyperintensity seen within the periventricular and subcortical white matter are nonspecific but suggestive of mild microvascular ischemic changes. The major vascular flow voids at the skull base are well-maintained. The focal area of encephalomalacia with surrounding gliosis within left parietal lobe consistent with an old infarct. This remains unchanged. Prior bilateral lens replacement. IMPRESSION: No significant change compared to the prior study. No acute intracranial abnormality. ACT 112: Negative or not required by law. Electronically signed by: Sukhi Moscoso M.D. 11/14/2023 2:14 PM Abdomen/Pelvis CT 11/15/23 09:19 CT SCAN OF THE ABDOMEN AND PELVIS WITHOUT IV CONTRAST CLINICAL HISTORY: Generalized abdominal pain. COMPARISON STUDY: Prior abdominal CT scans, most recently dated 11/06/2023 TECHNIQUE: CT scan of the abdomen and pelvis is performed from the lung bases to the proximal femora. Images are reviewed in the axial, sagittal, and coronal planes. IV contrast was not administered for this examination as per the referring clinician. Note that the examination was performed in significantly suboptimal fashion without oral and IV contrast. The examination is also degraded by motion artifact, as well as by streak artifact from the arms which could not be elevated above the abdomen. A dose lowering technique was utilized adhering to the principles of ALARA. CT DOSE: 933.39 mGy.cm FINDINGS: Lung bases: Pacemaker leads are in place. The patient is status post midline sternotomy and aortic valve surgery. The heart is markedly enlarged and without pericardial effusion. The coronary arteries are densely calcified. There is diminished attenuation of the cardiac blood pool as compared to myocardium suggesting anemia. The main pulmonary arteries are dilated suggesting pulmonary artery hypertension. Interstitial/fibrotic changes suspected at the lung bases. There are trace pleural effusions and dense bibasilar consolidation. A 9 mm right middle lobe pulmonary nodule on image #38 is unchanged dating back to at least 2021. There are scattered calcified granulomas. Liver: The unenhanced liver is normal in size, contour, and attenuation. There is no intrahepatic biliary ductal dilatation. Gallbladder: Unremarkable. Spleen: Normal in size and attenuation. Pancreas: The unenhanced pancreas is grossly unremarkable. Adrenal glands: Unremarkable. Kidneys: The unenhanced kidneys are normal in size and without hydronephrosis. No renal calculi are identified and no ureteral stone is seen. A 16 mm complex/hyperdense cyst arising from the upper pole of the right kidney has been present dating back to at least 2007. A 10 mm cyst is seen in the left lower pole. Abdominal vasculature: There is advanced. Sclerotic calcification and ectasia of the abdominal aorta. Bowel: There is rectosigmoid fecal retention and moderate constipation. There is advanced colonic diverticulosis without CT evidence of acute diverticulitis. No bowel obstruction is seen. The appendix is well-visualized and normal Peritoneum: There is no intraperitoneal free air or abdominal ascites. Lymphadenopathy: None. Pelvic viscera: The prostate gland is markedly enlarged and heterogeneous. The bladder wall is thickened/trabeculated indicating chronic outlet obstruction. There is evidence of previous right inguinal herniorrhaphy. Skeletal structures: The skeletal structures are osteopenic. There are numerous thoracolumbar compression deformities which are similar in appearance to previous. There is advanced multiple sacral spondylosis. No lytic or blastic lesions are seen. IMPRESSION: 1. Suboptimal examination without oral and IV contrast. There is also significant streak and motion artifact. 2. No acute infectious or inflammatory findings are identified in the abdomen or pelvis. 3. Trace pleural effusions with dense bibasilar airspace consolidation. The appearance is typical for pneumonia/aspiration pneumonitis, which is likely superimposed on chronic interstitial/fibrotic lung disease. Clinical correlation will be required and radiographic follow-up to resolution is recommended. 4. Marked cardiomegaly and cardiac pacemaker with evidence of pulmonary artery hypertension. 5. Rectosigmoid fecal retention and moderate constipation. 6. Advanced colonic diverticulosis without CT evidence of acute diverticulitis. 7. Additional findings as above. ACT 112: Negative or not required by law. Electronically signed by: Glen Noriega M.D. 11/15/2023 3:19 PM Ordered Studies 11/12/23 12:57 CT head/brain wo con Stat 11/12/23 15:36 US carotid doppler BI Routine 11/14/23 00:00 MR brain wo con Routine 11/15/23 09:19 CT Abd and Pelvis [CT abd pelvis wo con] Urgent Hospital Course (1) Syncope and collapse: (2) Chronic atrial fibrillation: (3) Status post transcatheter aortic valve replacement (TAVR) using bioprosthesis: (4) Acute respiratory failure with hypoxia: (5) Acute on chronic diastolic CHF (congestive heart failure): (6) Supratherapeutic INR: Plan Patient is an 88 year old male with PMH chronic atrial fibrillation on warfarin, history of ischemic cardiomyopathy, hx of TAVR, pacemaker in place, CAD s/p CABG, HTN, HLD, pulmonary fibrosis, COPD, dementia, BPH, arthritis, LOIS, CKD III, and others listed below 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 Admitted 11/04-11/09 2/ PNA treated with antibiotics, course complicated by syncopal episode which was felt to be related to hypotension (Entresto and imdur reduced) and a/c CHF receiving IV diuresis. D/C back to [facility] progressively getting weaker, lack of intake. 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 His Oxygen was 70s on room air and on 6L was high 80s. He did lose function of bowel/bladder, Blood pressure normal this morning but it was not checked during event, no seizure like activity. Syncope/Collapse --MRI Brain:No significant change compared to the prior study. No acute intracranial abnormality. --CT head:No acute intracranial abnormality. --ECHO: Moderate concentric LVH. Moderate size septal, inferior wall motion abnormality with hypokinesis to akinesis of the segments. EF 50 to 50%. Left atrium is severely dilated. Right atrium is moderately dilated. Bioprosthetic aortic valve. Bioprosthetic leaflets are thickened and removed well. Gradient is normal for the prosthetic aortic valve. Trace aortic regurgitation. Moderate mitral regurgitation with mild to moderate tricuspid regurgitation. Right ventricular systolic pressure is elevated at 50 to 60 mmHg. --Carotid USD:Atherosclerosis without hemodynamically significant stenosis. Normal antegrade vertebral flow bilaterally. 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 S/p CABG. Pacemaker in place --CXR:Cardiomegaly with persistent pulmonary edema and small pleural effusions. Chronic interstitial lung disease. -- Received IV Lasix Started on Lasix 20 mg daily Monitor I's and O's, daily weight Appreciate cardiology input Continue aspirin, atorvastatin, digoxin Imdur discontinued Also on Entresto, low-dose metoprolol continue Coumadin Monitor INR 2.1 today Continue supplemental oxygen recommended by cardiology CKD III Baseline cr 1.3-1.5 Creatinine at baseline Monitor renal function Generalized weakness PT/OT Fall precaution Recent PNA Treated with course of Unasyn and doxy H/O recurrent aspiration and per previous admission family agreeable to permissive aspiration Continue aspiration precautions BioFire negative Continue supplemental oxygen Supratherapeutic INR Resolved Dementia continue Namenda and donepezil Delirium precautions COPD/Pulmonary Fibrosis chronic, stable DVT Px: warfarin Code Status DNR/DNI Disposition Rehab Total Time Total Time Spent Total Time Spent (In Minutes): 53 minutes Discharge Plan Discharge Items Patient Disposition: Transfer [facility] Reason For Visit: SYNCOPE, ACUTE/CHRONIC CHF Discharge Diagnosis: Syncope/Collapse Fecal retention/constipation Acute on Chronic Systolic CHF Hypoxia Activity: Per Instructions section Exercise/Sports: Gradually increase as tolerated Non-emergency contact: Primary Care Provider and Irrigation Equipment Mechanic Call non-emergency contact if: you have any medication questions, your symptoms worsen, your pain is concerning for you and you have a fever Follow-up/Referrals: [facility] [employer] [Primary Care Provider] - Diet: Heart Healthy, Low Fiber and Low Sodium (2gm) Addtl Attending Provider Instructions: Follow-up with your primary care physician in 1 week Follow-up with your ambulance paramedic Dr. Ruiz in 3 to 4 weeks --Continue supplemental oxygen to keep saturations greater than 92% as recommended by your ambulance paramedic --Continue bowel regimen(Colace, MiraLAX PRN) for constipation. Can hold these medications if you develop diarrhea. -- Get PT/INR in 3 days and follow-up with the physician at rehab facility for further adjustment of Coumadin dose as needed. Seek immediate medical attention if your symptoms reoccur or worsen Please take all medications as instructed on discharge list below. Please call if you have any questions or problems. You can reach a [facility] hospitalist on duty at [facility] 24 hours a day by calling [phone] Pending Studies at Discharge: No Stand-Alone Forms: My [facility] Skilled Items Patient informed of condition?: Yes DNR: Yes Discharge Level of Care: Skilled Communicable Disease: No Discharge Prognosis: Stable Lines: None Urinary Catheter: No Medications and DC Order Prescriptions: New bisacodyl 10 mg Suppository 10 mg KS DAILY PRN (Reason: constipation) Qty: 12 0RF furosemide 20 mg Tablet 20 mg PO QAM Qty: 30 1RF metoprolol succinate 25 mg Tablet Extended Release 24 Hr 25 mg PO BID Qty: 60 1RF docusate sodium 100 mg Capsule 100 mg PO BID Qty: 30 0RF polyethylene glycol 3350 [Miralax] 17 gram Powder In Packet 17 g PO DAILY PRN (Reason: Constipation) Qty: 30 0RF Continued loratadine 10 mg tablet 10 mg PO DAILY pantoprazole 40 mg Tablet,Delayed Release (Dr/Ec) 40 mg PO QAM atorvastatin 40 mg tablet 40 mg PO DAILY gabapentin 300 mg capsule 300 mg PO TID Rx Instructions: Morning, Mid day, and bed time. aspirin 81 mg Tablet,Delayed Release (Dr/Ec) 81 mg PO DAILY multivitamin [Daily-Selena] Tablet 1 tab PO DAILY PreserVision AREDS-2 250-90-40-1 mg Capsule 1 tab PO DAILY donepezil 10 mg tablet 10 mg PO HS alendronate 70 mg tablet 70 mg PO WK Rx Instructions: SUNDAYS digoxin 125 mcg (0.125 mg) tablet 125 mcg PO [id number] Rx Instructions: On Friday, Friday, Friday, and Friday finasteride 5 mg tablet 5 mg PO DAILY diclofenac sodium 1 % Gel 2 g TOPICAL TID Rx Instructions: apply to affected area 0600,1400,2000 acetaminophen 500 mg Tablet 1,000 mg PO BID Rx Instructions: at 6AM and 2PM for pain. *Max 3gms APAP in 24 hours* sertraline 25 mg tablet 25 mg PO DAILY nitroglycerin 0.4 mg Tablet, Sublingual 0.4 mg sublingual .Q 5 MIN PRN (Reason: Chest Pain) Rx Instructions: take 1 tablet under tongue every 5 min's as needed for chest pain x 3 doses, if no relief call 911 calcium carbonate [Calcium 600] 600 mg calcium (1,500 mg) Tablet 600 mg PO QDL memantine [Namenda] 10 mg Tablet 10 mg PO BID Qty: 30 1RF diphenhydramine-acetaminophen [Tylenol PM Extra Strength] 25-500 mg Tablet 2 tab PO HS cholecalciferol (vitamin D3) 125 mcg (5,000 unit) Capsule 125 mcg PO DAILY coenzyme Q10 [Co Q-10] 200 mg Capsule 200 mg PO DAILY Gluco/Chond/Msm/Turm tablet 3 tab PO BID Menthol 4% Topical Analgesic See Rx Instructions .ROUTE .COMPLEX PRN (Reason: Pain) Rx Instructions: Use as directed as needed for muscle pain tramadol 50 mg tablet 50 mg PO Q4 PRN (Reason: Pain) Qty: 0 0RF Entresto 24-26 mg tablet 0.5 tab PO BID Qty: 30 0RF Rx Instructions: hold for BP<90 Changed warfarin 3 mg tablet 2 mg PO DAILY Qty: 0 0RF Discontinued metoprolol succinate 100 mg tablet extended release 24 hr 50 mg PO BID Rx Instructions: HOLD FOR SBP <90 furosemide 40 mg tablet 40 mg PO 3XWK Rx Instructions: On Friday, Friday and Friday doxycycline hyclate 100 mg Capsule 100 mg PO BID Qty: 3 0RF isosorbide mononitrate 60 mg Tablet Extended Release 24 Hr 30 mg PO HS Qty: 30 0RF Discharge Orders: Discharge Order (Routine); Ordered 11/16/23 Ordered By: Praful Narayan Admission Data Admit Date/Time: 11/12/23 15:22 Attending Provider: Praful Narayan Admit Provider: Woody Ricci Primary Care Provider: Jeffrey Exeter,[facility] Other Providers: Woody Ricci; Baldev Ruiz; [facility]
[2023-11-16] MEDS ORDERED: METOPROLOL SUCC 25MG EXT REL TAB PO SCH (21:00)
== END 2023-11-16 13:32 | DRG 291 ==
LOC: ED 12:18 → SUATTDRO 15:22 → EDINP 15:22 → 2N 20:52